=== PATIENT | male | born 1945 | race Caucasian/White ===

== ENCOUNTER 2023-12-18 06:35 | Outpatient (REF) | payer SELFPAY ==
[2023-12-18 06:46] LABS: MANUAL DIFF FLAG NO
[2023-12-18 07:34] LABS: Basophils Percent Auto 0.7 % (0-2); Eosinophils Absolute Auto 0.2 X10*3/uL (0.0-0.4); Eosinophils Percent Auto 5.2 % (0-4); Hematocrit 31.6 % (42.0-52.0); Hemoglobin 10.1 g/dl (14.0-18.0); Imm Gran Abs Auto 0.01 X10*3/uL (0.00-0.03); Imm Gran Pct Auto 0.2 % (0.0-0.4); Lymphocytes Absolute Auto 0.8 X10*3/uL (1.2-4.9); Lymphocytes Percent Auto 19.8 % (20-40); Mean Corpuscular Hemoglobin 30.8 pg (27.0-33.0); Mean Corpuscular Volume 96.3 fL (80.0-98.0); Mean Platelet Volume 11.1 fL (9.4-12.4); Monocytes Absolute Auto 0.4 X10*3/uL (0.1-1.2); Monocytes Percent Auto 10.5 % (2-11); Neutrophils Absolute Auto 2.7 x10*3/uL (2.0-8.3); Neutrophils Percent Auto 63.6 % (45-73); Platelet Count 143 X10*3/uL (160-400); Red Blood Count 3.28 X10*6/uL (4.60-5.80); Red Cell Distribution Width 13.7 % (11.0-16.0); White Blood Count 4.2 X10*3/uL (4.8-10.8)
[2023-12-18 07:41] LABS: Alanine Aminotransferase 7 U/L (0-40); Alkaline Phosphatase 68 U/L (39-117); Anion Gap 10 (12-20); Aspartate Amino Transferase 19 U/L (5-37); Bilirubin Total 0.6 mg/dL (0.0-1.0); Blood Urea Nitrogen 32 mg/dL (9-16); Calcium 9.9 mg/dL (8.4-10.2); Carbon Dioxide 25 mmol/L (22-29); Chloride 111 mmol/L (96-108); Cholesterol 101 mg/dL (<200); Estimated Glomerular Filt Rate 49; Glucose Random 74 mg/dL (60-115); HDL Cholesterol 37 mg/dL (>40); LDL Cholesterol Calculated 53 mg/dL (<100); Potassium 4.3 mmol/L (3.3-5.1); Sodium 142 mmol/L (135-145); Total Protein 6.1 g/dL (6.5-8.0); Triglycerides 58 mg/dL (<150)
[2023-12-18 07:44] LABS: INTERNATIONAL NORM RATIO 2.7 (0.9-1.1); Prothrombin Time 33.1 SEC (11.1-13.3)
[2023-12-18 08:09] LABS: Vitamin B12 1131 pg/mL (200-900)
[2023-12-18 08:19] LABS: Appearance Urine Clear; Color Urine Yellow; Glucose Urine UA Negative (Negative); Leukocyte Esterase Urine Trace (Negative); Nitrite Urine Negative (Negative); Specific Gravity - Urine <= 1.005 (1.005-1.025); UMIC TRIGGER UA YES; Urine Blood Negative (Negative); Urine Ketones Negative (Negative); Urine Protein Negative (Neg-Trace)
[2023-12-18 08:24] LABS: Bacteria Urine None Seen (None Seen); Hyaline Casts Urine 0-2 /LPF (0-2); RBC Urine 0-2 /HPF (0-2); Squamous Epithelial Cell Urine 0-2 /HPF (0-2); WBC Urine 0-5 /HPF (0-5)
[2023-12-21 09:48] LABS: TS Negative Control Passed; TS Panel A 1; TS Panel B 0; TS Positive Control Passed; TSpotTB Negative (Negative)
== END 2023-12-18 06:36 | disposition home or self-care (01) ==
LOC: HO.HSH2E 06:35
PROVIDERS: Visit Provider Internal Medicine Medical Oncology
DX: Z12.5 Encounter for screening for malignant neoplasm of prostate (principal); I48.91 Unspecified atrial fibrillation; I12.9 Hypertensive chronic kidney disease with stage 1 through stage 4 chronic kidney disease, or unspecified chronic kidney disease; N18.9 Chronic kidney disease, unspecified
CPT/HCPCS: 36415; 80053; 80061; 81001; 81003; 82607; 84153; 85025; 85610; 86481

== ENCOUNTER 2023-12-22 06:48 | Outpatient (REF) | payer MEDICARE, SELFPAY ==
[2023-12-22 08:07] LABS: PSA,Total (Free>4and<10) 25.91 ng/mL (0.00-4.00)
== END 2023-12-22 06:49 | disposition home or self-care (01) ==
LOC: HO.HSH2E 06:48
PROVIDERS: Visit Provider Internal Medicine Medical Oncology
DX: R97.20 Elevated prostate specific antigen [PSA] (principal); Z12.5 Encounter for screening for malignant neoplasm of prostate
CPT/HCPCS: 36415; 84153

== ENCOUNTER 2023-12-24 11:58 | Outpatient (AMB) | payer MEDICARE, SELFPAY ==
--- NOTE | 2023-12-24 12:00 | HO.VETSHOME ---
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 Braxton who [facility]. He has a past medical history of type 2 diabetes, neuropathy, hypertension, cardiac murmur, hyperlipidemia, obesity, AFib, endocarditis, anemia, nonrheumatic aortic valve stenosis, chronic combined systolic and diastolic heart failure, and chronic kidney disease stage 3. He is being follow-up on today as a new patient for an elevated PSA. In discussion with the patient today he reports having newly moved into the [facility] at which time labs were ordered and patient was noted to have a elevated PSA and recommendations were made for urology referral for further assessment evaluation. In review of patient's chart it appears PSA 01/04 25.9. Patient reports having followed up with his previous PCP not to along and had blood work that was all WNL. He discusses his PCP was in [place] his name was Dr. Keys. He discusses having followed up with a urologist previously and was to undergo a circumcision for his longstanding phimosis however this was never performed. He feels this is his main concern. Discussed at length potential causes of elevated PSA. GINGER performed right-sided prostate noted to be semi firm left side boggy. Discussed potential prostatitis versus inflammation verses potential prostate cancer. In assessment of the patient today absolute no retraction to penile foreskin unable to visualize meatus. Patient reports he is emptying his bladder. Bladder scan was performed yesterday and no PVR noted. He does report baseline urinary frequency however does not find this bothersome. He otherwise denies hematuria, dysuria, foul smelling urine, changes to urinary stream, flank pain, fever, and or chills. He otherwise offers no other issues or concerns. Review of Systems Const Reports no additional complaints Eyes Reports no additional complaints ENT Reports no additional complaints Card Reports as per HPI Resp Reports no additional complaints GI Reports no additional complaints Reports as per HPI Musc Reports as per HPI Neuro Reports no additional complaints Psych Reports no additional complaints Endo Reports as per HPI [place]/Lymph Reports no additional complaints Aller/Immun Reports no additional complaints Physical Exam Const General: cooperative, healthy appearing, comfortable, no acute distress, well developed, alert and awake Nutritional Appearance: overweight Orientation/consciousness: patient oriented x3 Limitations: other limitations (in bed ) HEENT Head: Yes normal to inspection, Yes normocephalic and Yes atraumatic Ears: hearing grossly normal bilaterally Eyes General: appearance normal, both eyes and all related structures Neck Neck: Yes normal visual inspection and Yes trachea midline Chest Chest palpation & inspection: normal inspection of the chest Resp Effort & Inspection: normal respiratory effort and able to speak in complete sentences Cardio Rate: regular rate GI Inspection: Yes normal to inspection Penis: uncircumcised and phimosis Scrotum: scrotum normal Testes: Testes normal Skin General skin exam: no rashes or lesions noted Neuro General: patient oriented x3 Extrem General: Yes normal to inspection Psych Appearance: grossly normal and well kempt Mental Status: mental status grossly normal Speech and movement: Normal speech and movement present and Clear speech present Affect: normal affect Attitude: cooperative Thought process: Normal thought process present Thought content: Normal thought content present Insight: Fair insight present (Psych) Judgement: Fair judgement present (Psych) Assessment & Plan Assessment & Plan (1) Elevated PSA: Code(s): R97.20 - Elevated prostate specific antigen [PSA] (2) Prostatitis: Code(s): N41.9 - Inflammatory disease of prostate, unspecified (3) Phimosis: Code(s): N47.1 - Phimosis (4) Urinary frequency: Code(s): R35.0 - Frequency of micturition Plan: Risks, benefits and alternatives to therapy were discussed. These include but are not limited to infection, bleeding, damage to local organs and tissues, need for further interventions. ? Anesthetic risks regarding cardiac arrhythmia, blood clots, and potential mortality were discussed. The patient understands the typical recovery time and the outpatient nature of the procedure. After consideration of these risks the patient gives full informed consent and they wish to move ahead with the procedure. Plan Discussed at length treatment options for phimosis; discussed risks and benefits of circumcision. GINGER performed discussed antibiotic therapy for potential prostatitis however in review of patient's MAR it appears he is on doxycycline this can also cover/treat potential prostatitis. Will obtain redraw of PSA with PSA percent free. Will obtain retroperitoneal ultrasound for further assessment evaluation. Discussed at length potential causes of elevated PSA. Will attempt to obtain previous labs for trending in continuity of care. All questions were answered Will attempt to schedule for circumcision discussed medical/cardiac clearance given extensive past medical history. Follow-up in 1-2 months with redraw of PSA and imaging. Patient Instructions: The patient had an opportunity to ask questions regarding the treatment plan. All questions were answered. Physical exam, labs, and imaging were discussed and reviewed in detail. As well as risks, benefits, and discussion of treatment choices. No major barriers to understanding were identified. The patient expressed understanding and agreement with the above treatment plan. The patient was made aware they should contact our office by phone for worsening of their current condition, the appearance of new symptoms, or with any questions or concerns. Compliance is encouraged with any medications and follow up testing that is ordered. It is a privilege to be allowed the opportunity to participate in? your urological care.? Again, if you have any questions or concerns If you have any questions or concerns please do not hesitate to contact me. The office is [phone]. This note is constructed using voice recognition software. While every effort has been made to ensure accuracy eligibility examiner errors may have been included. Yours sincerely, GRACIELA Humphries Coding Level of Care Code 97896-Xrpw Fac initial, mod Diagnoses Elevated PSA R97.20 Prostatitis N41.9 Phimosis N47.1 Urinary frequency R35.0 Time Spent (min) 40
== END 2023-12-24 16:30 | disposition home or self-care (01) ==
LOC: HO.HUSV 11:58
PROVIDERS: Visit Provider Nurse Practitioner Family
DX: R97.20 Elevated prostate specific antigen [PSA] (principal); N41.9 Inflammatory disease of prostate, unspecified; N47.1 Phimosis; R35.0 Frequency of micturition
CPT/HCPCS: 99305

== ENCOUNTER 2023-12-29 07:21 | Outpatient (REF) | payer MEDICARE, SELFPAY ==
[2023-12-29 08:40] LABS: Estimated Average Glucose 111 mg/dL; Hemoglobin A1c % 5.5 % (<6.0)
== END 2023-12-29 07:22 | disposition home or self-care (01) ==
LOC: HO.HSH2E 07:21
PROVIDERS: Visit Provider Internal Medicine Medical Oncology
DX: E11.9 Type 2 diabetes mellitus without complications (principal)
CPT/HCPCS: 36415; 83036

== ENCOUNTER 2024-01-01 06:12 | Outpatient (REF) | payer MEDICARE, SELFPAY ==
[2024-01-01 06:56] LABS: INTERNATIONAL NORM RATIO 2.9 (0.9-1.1); Prothrombin Time 35.1 SEC (11.1-13.3)
== END 2024-01-01 06:13 | disposition home or self-care (01) ==
LOC: HO.HSH2E 06:12
PROVIDERS: Visit Provider Internal Medicine Medical Oncology
DX: Z95.2 Presence of prosthetic heart valve (principal); Z79.899 Other long term (current) drug therapy
CPT/HCPCS: 36415; 85610

== ENCOUNTER 2024-01-14 06:40 | Outpatient (REF) | payer MEDICARE, SELFPAY ==
[2024-01-14 07:24] LABS: INTERNATIONAL NORM RATIO 2.1 (0.9-1.1); Prothrombin Time 25.7 SEC (11.1-13.3)
== END 2024-01-14 06:41 | disposition home or self-care (01) ==
LOC: HO.HSH2E 06:40
PROVIDERS: Visit Provider Internal Medicine Medical Oncology
DX: I48.91 Unspecified atrial fibrillation (principal)
CPT/HCPCS: 36415; 85610

== ENCOUNTER 2024-01-19 06:38 | Outpatient (REF) | payer MEDICARE, SELFPAY | END 2024-01-19 06:39 | disposition home or self-care (01) | LOC: HO.HSH2E 06:38 | PROVIDERS: Visit Provider Internal Medicine | DX: Z13.89 Encounter for screening for other disorder (principal) | CPT/HCPCS: 36415; 85610 ==

== ENCOUNTER 2024-01-19 13:49 | Outpatient (REF) | payer MEDICARE, SELFPAY ==
[2024-01-19 14:06] LABS: INTERNATIONAL NORM RATIO 1.6 (0.9-1.1); Prothrombin Time 19.6 SEC (11.1-13.3)
== END 2024-01-19 13:50 | disposition home or self-care (01) ==
LOC: HO.HSH2E 13:49
PROVIDERS: Visit Provider Internal Medicine
DX: I48.91 Unspecified atrial fibrillation (principal)
CPT/HCPCS: 36415; 85610

== ENCOUNTER 2024-01-20 06:11 | Day surgery (SDC) | payer MEDICARE, SELFPAY ==
--- NOTE | 2024-01-19 11:06 | HO.ANESPROP2 ---
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, prophylactic doxy BID PMFSH Active Problems Active Problems: All Active Problems Urinary frequency (Acute) Phimosis (Acute) Prostatitis (Acute) Elevated PSA (Acute) Past Medical History Medical History (Updated 01/19/24 @ 08:25 by Deanne Eid, RN) Hx of decubitus ulcer Former smoker Peripheral neuropathy Compartment syndrome of right lower extremity Osteoarthritis Pancreatic cyst Gout ASHD (arteriosclerotic heart disease) Aortic stenosis Chronic kidney disease Chronic combined systolic and diastolic CHF (congestive heart failure) Nonrheumatic aortic (valve) stenosis Anemia Endocarditis Afib Obesity Hyperlipidemia Murmur HTN (hypertension) Neuropathy Diabetes Surgical History Surgical History (Updated 01/19/24 @ 08:25 by Deanne Eid, FACUNDO) Hx of ankle fusion History of total bilateral knee replacement Hx of aortic valve replacement Meds Allergies Allergy/AdvReac Type Severity Reaction Status Date / Time ceftriaxone Allergy Unknown Verified 01/16/24 10:27 Home Medications ?Medication ?Instructions ?Recorded ?Confirmed ?Last Taken ?Type doxycycline hyclate 100 mg capsule 100 mg PO BID 12/25/23 01/16/24 Unknown History gabapentin 300 mg capsule 300 mg PO BID 12/25/23 01/16/24 Unknown History mecobalamin (vitamin B12) 500 mcg 1,000 mcg PO DAILY 12/25/23 01/16/24 Unknown History chewable tablet metoprolol succinate 100 mg 100 mg PO DAILY 12/25/23 01/16/24 Unknown History tablet,extended release 24 hr metoprolol tartrate 50 mg tablet 50 mg PO DAILY 12/25/23 01/16/24 Unknown History simvastatin 20 mg tablet 20 mg PO BEDTIME 12/25/23 01/16/24 Unknown History warfarin 5 mg tablet 5 mg PO Q OTHER DAY 12/25/23 01/16/24 Unknown History acetaminophen 325 mg tablet 650 mg PO Q4H PRN Pain 01/19/24 01/19/24 Unknown History enoxaparin 120 mg/0.8 mL 120 mg subcut Q12H 01/19/24 01/19/24 Unknown History subcutaneous syringe (Lovenox) furosemide 20 mg tablet 20 mg PO DAILY 01/19/24 01/19/24 Unknown History Exam Pertinent Lab Results Pertinent Lab Results: Laboratory Tests 12/18/23 05:45 WBC 4.2 L Hgb 10.1 L Hct 31.6 L Plt Count 143 L Sodium 142 Potassium 4.3 Chloride 111 H Carbon Dioxide 25 BUN 32 H Creatinine 1.40 Assessment and Plan Assessment Anesthesia Assessment: Chart Reviewed
[2024-01-20] VITALS (13 sets, daily range): BP systolic 107–140; BP diastolic 31–73; PULSE 50–78; RESP 10–18; TEMP 36.1–36.5; O2SAT 96–98; BMI 36.4
--- OUTSIDE RECORDS SUMMARY | 2024-01-20 06:13 | XMS_ITS | Continuity of Care Document ---
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 Name Role Phone Vladimir Keys MD Primary Care Physician Encounter [facility] R [id number] Date(s): 03/11/22 - 05/24/22 [facility] [address] [place] [id number] Attending Physician: Shashi Swain MD Admitting Physician: Shashi Swain MD Referring Physician: Vladimir Keys MD Allergies, Adverse Reactions, Alerts Substance Reaction Severity Status CefTRIAXone Sodium Active Immunizations Given and Recorded Vaccine Date Status Refusal Reason SARS-CoV-2 (COVID-19) mRNA BNT-162b2 vac 09/27/21 Recorded SARS-CoV-2 (COVID-19) mRNA BNT-162b2 vac 11/21/20 Recorded SARS-CoV-2 (COVID-19) mRNA BNT-162b2 vac 10/29/20 Recorded influenza virus vaccine, inactivated 04/24/21 Ron rded influenza virus vaccine, inactivated 03/05/20 Ron rded influenza virus vaccine, inactivated 03/14/17 Ron rded influenza virus vaccine, inactivated 03/31/16 Ron rded influenza virus vaccine, inactivated 04/07/15 Ron rded Medications acetaminophen 325 mg oral tablet 650 mg, 2, tablet, By Mouth, Every 4 hours, PRN, # 12 tablet, Refills 0, Maintenance, as needed forfever / pain, 04/06/22 14:53:00 EDT, Partial fill upon patient request if the prescription is for aschedule II opioid drug. Start Date: 04/06/22 Status: Ordered allopurinol 300 mg oral tablet 300 mg, 1, tablet, By Mouth, Daily, # 90 tablet, Refills 0, Tot. Refills 0, Maintenance, 12/13/21 13:59:00 EDT, Route to Pharmacy Electronically, [facility] #[id number], 180, cm, 12/13/21 12:56:00 EDT, Height, 136.6, kg, 09/08/21 16:31:00 EST, Dry... Start Date: 12/13/21 Status: Ordered B-12 1000 mcg oral tablet, extended release 1 tablet = 1,000 mcg, By Mouth, Daily, # 90 tablet, 1 Refills, Maintenance, 01/24/22 16:36:00 EDT, [facility] #[id number], 180, cm, 01/24/22 16:01:00 EDT, Height, 136.6, kg, 09/08/21 16:31:00 EST, Dry Weight Start Date: 01/24/22 Status: Ordered docusate sodium 150 mg/15 ml oral liquid 10 mL = 100 mg, By Mouth, 2 times a day, PRN Constipation, 0 Refills, Maintenance, 09/06/21 8:19:00EST, Liquid, Partial fill upon patient request if the prescription is for a schedule II opioid drug. Start Date: 09/06/21 Status: Ordered doxycycline hyclate 100 mg oral capsule 1 capsule = 100 mg, By Mouth, 2 times a day, # 60 capsule, 0 Refills, Maintenance, 05/09/22 13:15:00 EDT, Capsule, Partial fill upon patient request if the prescription is for a schedule II opioid drug. Start Date: 05/09/22 Stop Date: 06/08/22 Status: Ordered ferrous fumarate 324 mg oral tablet 1 tablet = 324 mg, By Mouth, Daily, # 90 tablet, 0 Refills, Maintenance, 12/13/21 14:03:00 EDT, Tablet, [facility] #[id number], 180, cm, 12/13/21 12:56:00 EDT, Height, 136.6, kg, 09/08/21 16:31:00 EST, Dry Weight Start Date: 12/13/21 Status: Ordered gabapentin 100 mg oral capsule 100 mg, 1, capsule, By Mouth, 2 times a day, # 60 capsule, Refills 2, Tot. Refills 2, Maintenance, 01/24/22 16:33:00 EDT, Route to Pharmacy Electronically, [id number], 180, cm, 01/24/22 16:01:00 EDT, Height, 136.6, kg, 09/08/21 16:31:0... Start Date: 01/24/22 Status: Ordered insulin lispro 100 units/mL injectable solution 2-10 units, Subcutaneous Injection, 3 times a day before meals, << Sliding Scale Comments >> 150 - 199 2 units Call if less than 70 200 - 249 4 units 250 - 299 6 units 300 - 349 8 units 350 - 399 10 units Call if greater than 400 <<... Start Date: 09/06/21 Status: Ordered lactulose 10 gm/15 ml oral syrup 30 mL = 20 Gm, By Mouth, Daily, PRN as needed for constipation, # 480 mL, 0 Refills, Maintenance, 04/06/22 14:56:00 EDT, Syrup, Partial fill upon patient request if the prescription is for a scheduleII opioid drug. Start Date: 04/06/22 Status: Ordered melatonin 3 mg oral tablet = 3 mg, By Mouth, Daily at bedtime, PRN Insomnia, 0 Refills, Maintenance, 09/06/21 8:19:00 EST, Tablet, Partial fill upon patient request if the prescription is for a schedule II opioid drug. Start Date: 09/06/21 Status: Ordered metoprolol 50 mg oral tablet, extended release 150 mg, 3, tablet, By Mouth, Daily, # 270 tablet, Refills 1, Tot. Refills 1, Maintenance, 11/27/21 12:04:00 EDT, Route to Pharmacy Electronically, [facility] #[id number], 180, cm, 09/22/21 20:27:00 EST, Height, 136.6, kg, 09/08/21 16:31:00 EST, . Start Date: 11/27/21 Status: Ordered Multivit Therapeutic/Minerals Tablet 1 tablet, By Mouth, Daily, 0 Refills, Maintenance, 09/06/21 8:20:00 EST, Tablet, Partial fill upon patient request if the prescription is for a schedule II opioid drug. Start Date: 09/06/21 Status: Ordered pantoprazole 40 mg oral delayed release tablet = 40 mg, By Mouth, Daily, 0 Refills, Maintenance, 05/09/22 13:15:00 EDT, EC Tablet Start Date: 05/09/22 Status: Ordered Probiotic Formula By Mouth, Daily, 0 Refills, Maintenance, 01/24/22 16:08:00 EDT, Partial fill upon patient request if the prescription is for a schedule II opioid drug. Start Date: 01/24/22 Status: Ordered Santyl 250 u/gm ointment 1 application, Topically, Daily, # 15 Gm, 0 Refills, Maintenance, 04/06/22 15:05:00 EDT, Ointment, Partial fill upon patient request if the prescription is for a schedule II opioid drug. Start Date: 04/06/22 Status: Ordered Senna 8.6 mg oral tablet 17.2 mg, 2, tablet, By Mouth, Daily, Refills 0, Maintenance, 05/09/22 13:15:00 EDT, Tablet, Partialfill upon patient request if the prescription is for a schedule II opioid drug. Start Date: 05/09/22 Status: Ordered simvastatin 20 mg oral tablet 1, tablet, By Mouth, Daily at bedtime, # 90 tablet, Refills 3, Tot. Refills 3, 12/14/21 1:07:00 EDT, Route to Pharmacy Electronically, [facility] #[id number], 180, cm, 12/13/21 12:56:00 EDT, Height, 136.6, kg, 09/08/21 16:31:00 EST, Dry Weight Start Date: 12/14/21 Status: Ordered Vitamin D3 1000 intl units oral capsule 1 capsule = 25 mcg, By Mouth, Daily, # 100 capsule, 0 Refills, Maintenance, 02/04/22 13:38:00 EDT, Capsule, Partial fill upon patient request if the prescription is for a schedule II opioid drug. Start Date: 02/04/22 Status: Ordered warfarin 10 mg oral tablet 1 tablet = 10 mg, By Mouth, Daily, 0 Refills, Maintenance, 05/09/22 13:15:00 EDT, Tablet, Partial fill upon patient request if the prescription is for a schedule II opioid drug. Start Date: 05/09/22 Status: Ordered Problem List Condition Confirmation Course Effective Dates Status H ealth Status Informant Anemia Confirmed Active Aortic stenosis Confirmed Active Chronic atrial fibrillation Confirmed Active CKD (chronic kidney disease), stage III Confirmed Active Systolic CHF, chronic Confirmed Active Chronic total occlusion of coronary artery Confirmed Active Deficiency of vitamin B12 Confirmed Active COVID-19 1 Confirmed 09/06/21 Active Pancreatic cyst Confirmed Active Fatigue Confirmed Active Gout Confirmed Active S/P TAVR (transcatheter aortic valve replacement) Confirmed Active Hyperlipidemia Confirmed Active Hypersensitivity Confirmed Active Hypertension Confirmed Active LBBB (left bundle branch block) Confirmed Active Mitral valve stenosis, non-rheumatic Confirmed Active Obese class II Confirmed Active Phimosis of penis Confirmed Active Pressure ulcer of buttock Confirmed Active Prosthetic valve endocarditis Confirmed Active Type 2 diabetes mellitus Confirmed Active UTI (urinary tract infection) Confirmed Active 1Problem added by Discern Expert Social History Social History Type Response Smoking Status Cigars or pipes but not daily within last 30 days; Type: Cigars; Other: occasionally, couple times a week.; entered on: 11/30/20 Sex Implantable Device List Procedure Provider Procedure Date Device Type Site Replacement of Hemodialysis Catheter Stephon Serrano MD 04/08/22 Unknown Chest Device Identifier Serial Number Lot or Batch Number Manufacturing Date Expiration Date Distinct Identification Code MRI Safety Implantable Status Assigning Authority Unknown Unknown [id number] Unknown 12/26/26 Unknown Unknown Active Unknown Patient Care team information Care Team Personnel Name: Kaitlyn De La Paz RN Position: [facility] RN Member Role: Primary Care Nurse Name: Purnima Esposito RN Position: [facility] RN Member Role: Primary Care Nurse Name: Tran Ireland RN Position: [facility] RN Member Role: Primary Care Nurse Name: Rebeka Dunbar RN Position: [facility] RN Member Role: Primary Care Nurse Name: Mary Beth Argueta RN Position: [facility] RN Member Role: Primary Care Nurse Name: Rosalinda Espinoza RN Position: [facility] RN Member Role: Primary Care Nurse Name: Natalee Farrell RN Position: [facility] RN Member Role: Primary Care Nurse Name: Liz Melara RN Position: [facility] RN Member Role: Primary Care Nurse Name: Vanesa Jo RN Position: [facility] RN Member Role: Primary Care Nurse Name: Jasmeet Del Castillo RN Position: [facility] RN Member Role: Primary Care Nurse Name: Ruby Rojas RN Position: [facility] RN Member Role: Primary Care Nurse Name: Harleen Clark RN Position: [facility] RN Member Role: Primary Care Nurse Name: Roger Romero RN Position: [facility] RN Member Role: Primary Care Nurse Name: Manasa Weinstein RN Position: [facility] RN Member Role: Primary Care Nurse Name: Reina Romeo RN Position: [facility] RN Member Role: Primary Care Nurse Name: Mark Ruffin Position: [facility] RN Member Role: Primary Care Nurse Name: Albertina Acevedo RN Position: [facility] RN Member Role: Primary Care Nurse Name: Diana Patton RN Position: [facility] RN Member Role: Primary Care Nurse Name: Imelda Brand RN Position: [facility] RN Member Role: Primary Care Nurse Name: Joao Downs RN Position: [facility] RN Member Role: Primary Care Nurse Name: Mitzy Mora Position: [facility] RN Member Role: Primary Care Nurse Name: Ward Alcantar RN Position: [facility] RN Member Role: Primary Care Nurse Name: Karla Holder RN Position: [facility] RN Member Role: Primary Care Nurse Name: Eric Aceves III, RN Position: [facility] RN Member Role: Primary Care Nurse Name: Danay Galindo RN Position: [facility] RN Member Role: Primary Care Nurse Name: Ara De Santiago RN Position: [facility] Onco RN Member Role: Primary Care Nurse Name: Li De Santiago RN Position: [facility] RN Member Role: Primary Care Nurse Name: Jacky Love Position: [facility] Associate Professional Member Role: Lifetime Consulting Provider Address: Address: [address] [place] [address] Name: Margaret Miranda RN Position: [facility] RN Member Role: Primary Care Nurse Name: Micki Quezada RN Position: [facility] RN Member Role: Primary Care Nurse Name: Fatmata Alvarez RN Position: [facility] RN Member Role: Primary Care Nurse Name: Ila Hamm RN Position: [facility] RN Member Role: Primary Care Nurse Name: Rocio Bird RN Position: [facility] RN Member Role: Primary Care Nurse Name: Owen Kuhn MD Position: [facility] Renal MD Member Role: Lifetime Consulting Physician Address: Address: [address] [place] [address] [address] [facility], [address] Name: Sharon Christopher RN Position: [facility] RN Member Role: Primary Care Nurse Name: Praveena Raymond RN Position: S RN Member Role: Primary Care Nurse Name: Carla Pickett RN Position: [facility] RN Member Role: Primary Care Nurse Name: Marcella Nichols RN Position: [facility] RN Member Role: Primary Care Nurse Name: Everett Marcelo RN Position: [facility] RN Member Role: Primary Care Nurse Name: Noe Doyle MD Position: [facility] Renal MD Member Role: Lifetime Consulting Physician Address: Address: [address] [place] [address] [facility] [place] [address]- Name: Li Lu LPN Position: [facility] RN Member Role: Primary Care Nurse Name: Odalis Herrera Position: [facility] RN Member Role: Primary Care Nurse Name: Tete Rodríguez RN Position: [facility] RN Member Role: Primary Care Nurse Name: Hannah Mcintyre RN Position: [facility] RN Member Role: Primary Care Nurse Name: Margarita Franco RN Position: [facility] RN Member Role: Primary Care Nurse Name: Cherry Nguyen RN Position: [facility] RN Member Role: Primary Care Nurse Name: Theresa Robison RN Position: [facility] RN Member Role: Primary Care Nurse Name: Vladimir Keys MD Position: [facility] Primary Care Physician Member Role: PCP Address: Address: [address] [place] [address], [facility] [address] [place] [address]- Name: Remedios Ramírez RN Position: [facility] RN Member Role: Primary Care Nurse Name: Ashlee Sanders RN Position: [facility] RN Member Role: Primary Care Nurse Name: Theresa Geiger RN Position: [facility] RN Member Role: Primary Care Nurse Name: Danay Banegas RN Position: [facility] RN Member Role: Primary Care Nurse Name: Talat Saldivar RN Position: [facility] RN Member Role: Primary Care Nurse Name: Den Wilde RN Position: [facility] SN RN Member Role: Primary Care Nurse Name: Rosalino Hernadez RN Position: [facility] RN Member Role: Primary Care Nurse Name: Chloe Prado Position: [facility] RN Member Role: Primary Care Nurse Care Team Related Persons Name: DESMOND MCDUFFIE Address: home [address] [place] [address]
--- OUTSIDE RECORDS SUMMARY | 2024-01-20 06:13 | XMS_ITS | Continuity of Care Document ---
Author Organization [facility] ter Address [address] [place] [id number]- Care Team Providers Care Polymer Specialist Name Role Phone Vladimir Keys MD Primary Care Physician Encounter [facility] [place](s): 08/29/23 - 08/29/[address] [id number] Attending Physician: Felicita Swain PharmD Allergies, Adverse Reactions, Alerts Substance Reaction Severity [...] opioid drug. Start Date: 04/06/22 Status: Ordered cyanocobalamin 1000 mcg oral tablet, extended release 1 tablet, By Mouth, Daily, # 90 tablet, 0 Refills, Maintenance, 06/23/23 9:19:00 [facility] #[id number], 177, cm, 02/17/23 14:21:00 EDT, Height, 115.6, kg, 02/12/23 17:08:00 EDT, Dry Weight Start Date: 06/23/23 Status: Ordered docusate sodium 150 mg/15 ml oral liquid 10 mL = 100 mg, By Mouth, 2 times a day, PRN Constipation, 0 Refills, Maintenance, 09/06/21 8:19:00EST, Liquid, Partial fill upon patient request if the prescription is for a schedule II opioid drug. Start Date: 09/06/21 Status: Ordered doxycycline hyclate 100 mg oral tablet 1 tablet = 100 mg, By Mouth, 2 times a day, # 60 tablet, 1 Refills, Maintenance, 08/01/23 7:16:00 EST, [facility] #[id number], 177, cm, 02/17/23 14:21:00 EDT, Height, 115.6, kg, 02/12/23 17:08:00EDT, Dry Weight Start Date: 08/01/23 Status: Ordered FREESTYLE LITE BLOOD GLUCOSE STRIPS FREESTYLE LITE BLOOD GLUCOSE STRIPS, See Instructions, # 100 Unknown, 5 Refills, Maintenance, CHECKBLOOD SUGAR ONCE A DAY BEFORE BREAKFAST, 08/20/22 11:29:00 EST, 182.88, cm, 05/09/22 12:50:00 EDT, Height, 125.1, kg, 04/23/22 14:36:00 EDT, Dry Weight Start Date: 08/20/22 Status: Ordered gabapentin 100 mg oral capsule 2, capsule, By Mouth, 2 times a day, # 120 capsule, Refills 2, Tot. Refills 2, Maintenance, 08/05/23 16:50:00 EST, Route to Pharmacy Electronically, [facility] #[id number], 177, cm, 02/17/23 14:21:00 EDT, Height, 115.6, kg, 02/12/23 17:08:00 EDT,... Start Date: 08/05/23 Status: Ordered insulin lispro 100 units/mL injectable [...] opioid drug. Start Date: 09/06/21 Status: Ordered Metoprolol Succinate ER 50 mg oral tablet, extended release 3 tablet, By Mouth, Daily, # 270 tablet, 0 Refills, Maintenance, 04/24/23 15:46:00 EDT, [facility] #[id number], 177, cm, 02/17/23 14:21:00 EDT, Height, 115.6, kg, 02/12/23 17:08:00 EDT, Dry Weight Start Date: 04/24/23 Status: Ordered Multivit Therapeutic/Minerals Tablet 1 tablet, By Mouth, Daily, 0 Refills, Maintenance, 09/06/21 8:20:00 EST, Tablet, Partial fill upon patient request if the prescription is for a schedule II opioid drug. Start Date: 09/06/21 Status: Ordered pantoprazole 40 mg oral delayed release tablet 1 tablet = 40 mg, By Mouth, Daily, # 90 tablet, 1 Refills, Maintenance, 07/23/22 16:49:00 EST, EC Tablet, 182.88, cm, 05/09/22 12:50:00 EDT, Height, 125.1, kg, 04/23/22 14:36:00 EDT, Dry Weight Start Date: 07/23/22 Status: Ordered simvastatin 20 mg oral tablet 1, tablet, By Mouth, Daily at bedtime, # 90 tablet, Refills 0, Tot. Refills 0, Maintenance, 04/24/23 15:48:00 EDT, Route to Pharmacy Electronically, [facility] #[id number], 177, cm, 02/17/23 14:21:00 EDT, Height, 115.6, kg, 02/12/23 17:08:00 EDT,... Start Date: 04/24/23 Status: Ordered warfarin 5 mg oral tablet See Instructions, TAKE 1.5 TABLETS(7.5MG) BY MOUTH EVERY DAY ALTERNATE WITH 2 TABLETS(10MG) EVERY OTHER DAY, # 150 tablet, 0 Refills, Maintenance, 04/25/23 13:33:00 EDT, [id number], 177, cm, 02/17/23 14:21:00 EDT, Height, 115.6, kg, 08... Start Date: 04/25/23 Status: Ordered Problem List Condition Confirmation Course Effective Dates Status H ealth Status Informant Anemia Confirmed Active Aortic stenosis Confirmed Active Chronic atrial fibrillation Confirmed Active CKD (chronic kidney disease), stage III Confirmed Active Systolic CHF, chronic Confirmed Active Chronic total occlusion of coronary artery Confirmed Active Chronic ulcer of buttock Confirmed Active Deficiency of vitamin B12 Confirmed Active COVID-19 1 Confirmed 09/06/21 Active Pancreatic cyst Confirmed Active Controlled diabetes mellitus Confirmed Active Fatigue Confirmed Active Gout Confirmed Active S/P TAVR (transcatheter aortic valve replacement) Confirmed Active Hyperlipidemia Confirmed Active Hypersensitivity Confirmed Active Hypertension Confirmed Active LBBB (left bundle branch block) Confirmed Active Mitral valve stenosis, non-rheumatic Confirmed Active Osteomyelitis of foot Confirmed Active Leg pain Confirmed Active Phimosis of penis Confirmed Active Pressure ulcer of buttock Confirmed Active Prosthetic valve endocarditis Confirmed Active Severe obesity (BMI 35.0-39.9) with comorbidity Confirmed Active Type 2 diabetes mellitus Confirmed [...] Safety Implantable Status Assigning Authority Unknown Unknown [id number] Unknown 12/26/26 Unknown Unknown Active Unknown Patient Care team information Care Team Personnel Name: Kaitlyn De La Paz RN Position: S RN Member Role: Primary Care Nurse Name: Purnima Esposito RN Position: [facility] RN Member Role: Primary Care Nurse Name: Tran Ireland RN Position: [facility] RN Member Role: Primary Care Nurse Name: Mitzy Lim RN Position: [facility] RN Member Role: Primary Care Nurse Name: Rebeka Dunbar RN Position: [facility] RN Member Role: Primary Care Nurse Name: Mary Beth Argueta RN Position: [facility] SN RN Member Role: Primary Care Nurse Name: Rosalinda Espinoza RN Position: [facility] RN Member Role: Primary Care Nurse Name: Carla Reid RN Position: [facility] SN RN Member Role: Primary Care Nurse Name: Natalee Farrell RN Position: [facility] RN Member Role: Primary Care Nurse Name: Lois Serrano Position: [facility] RN Member Role: Primary Care Nurse Name: Jasmeet Del Castillo RN Position: [facility] RN Member Role: Primary Care Nurse Name: Harleen Clark RN Position: [facility] AMB Nurse Member Role: Primary Care Nurse Name: Roger Romero RN Position: [facility] RN Member Role: Primary Care Nurse Name: Manasa Weinstein RN Position: [facility] RN Member Role: Primary Care Nurse Name: Reina Romeo RN Position: [facility] RN Member Role: Primary Care Nurse Name: Mark Ruffin Position: [facility] RN Member Role: Primary Care Nurse Name: Diana Patton RN Position: [facility] RN Member Role: Primary Care Nurse Name: Meera Camacho RN Position: [facility] RN Member Role: Primary Care Nurse Name: Imelda Brand RN Position: [facility] RN Member Role: Primary Care Nurse Name: Joao Downs RN Position: [facility] RN Member Role: Primary Care Nurse Name: Mitzy Mora Position: [facility] RN Member Role: Primary Care Nurse Name: Ward Alcantar RN Position: [facility] RN Member Role: Primary Care Nurse Name: Karla Holder RN Position: [facility] RN Member Role: Primary Care Nurse Name: Eric Aceves III, RN Position: [facility] RN Member Role: Primary Care Nurse Name: Danay Galindo RN Position: [facility] RN Member Role: Primary Care Nurse Name: Ila Palm PharmD Position: [facility] Associate Professional Member Role: Lifetime Consulting Provider Address: Address: [address] [facility] [place] [address]- [place] Name: Ara De Santigao RN Position: [facility] Onco RN Member Role: Primary Care Nurse Name: Jacky Love Position: [facility] Associate Professional Member Role: Lifetime Consulting Provider Address: Address: [address] [place] [address]- Name: Micki Quezada RN Position: [facility] RN Member Role: Primary Care Nurse Name: Fatmata Alvarez RN Position: S RN Member Role: Primary Care Nurse Name: Ila Hamm RN Position: [facility] RN Member Role: Primary Care Nurse Name: Owen Kuhn MD Position: [facility] Renal MD Member Role: Lifetime Consulting Physician Address: Address: [address] [place] [address] [address] [facility] [place] [address]- Name: Sharon Christopher RN Position: [facility] RN Member Role: Primary Care Nurse Name: Praveena Raymond RN Position: [facility] RN Member Role: Primary Care Nurse Name: Margaret Hurtado RN Position: [facility] SN RN Member Role: Primary Care Nurse Name: Noe Doyle MD Position: [facility] Renal MD Member Role: Lifetime Consulting Physician Address: Address: [address] [place] [address] [facility] [place] [address]- Name: Li Lu LPN Position: [facility] RN Member Role: Primary Care Nurse Name: Tete Rodríguez RN Position: [facility] RN Member Role: Primary Care Nurse Name: Hannah Mcintyre RN Position: [facility] RN Member Role: Primary Care Nurse Name: Tatiana Mueller RN Position: [facility] RN Member Role: Primary Care Nurse Name: Cherry Nguyen RN Position: [facility] RN Member Role: Primary Care Nurse Name: Vladimir Keys MD Position: [facility] Physician - Primary Care Member Role: PCP Address: Address: [address], [address] [place] [address]- [place] Name: Remedios Ramírez RN Position: [facility] RN Member Role: Primary Care Nurse Name: Ashlee Sanders RN Position: [facility] RN Member Role: Primary Care Nurse Name: Theresa Geiger RN Position: [facility] RN Member Role: Primary Care Nurse Name: Talat Saldivar RN Position: [facility] RN Member Role: Primary Care Nurse Name: Den Wilde RN Position: [facility] SN RN Member Role: Primary Care Nurse Name: Rosalino Hernadez RN Position: [facility] RN Member Role: Primary Care Nurse Name: Noemí Ny RN, I Position: [facility] RN Member Role: Primary Care Nurse Name: Chloe Prado RN Position: [facility] RN Member Role: Primary Care Nurse Care Team Related Persons Name: DESMOND MCDUFFIE Address: home [address] [place] [address]
--- OUTSIDE RECORDS SUMMARY | 2024-01-20 06:13 | XMS_ITS | Continuity of Care Document ---
Author Organization [facility] Address [address] [place] [id number]- Care Team Providers Care Supervisor Pipeline Maintenance Name Role Phone Valdimir Keys MD Primary Care Physician Encounter [facility] [place] Date(s): 12/27/21 - 01/30/22 [facility] [address] [place] [id number] Attending Physician: Jason PARISH, Gail Akins Admitting Physician: Jason PARISH, Gail Akins Allergies, Adverse Reactions, Alerts No Known Allergies Immunizations Given and Recorded Vaccine Date Status [...] virus vaccine, inactivated 04/07/15 Ron rded Medications allopurinol 300 mg oral tablet 300 mg, 1, tablet, By Mouth, Daily, # 90 tablet, Refills 0, Tot. Refills 0, Maintenance, 12/13/21 13:59:00 EDT, Route to Pharmacy Electronically, [facility] #[id number], 180, cm, 12/13/21 12:56:00 EDT, Height, 136.6, kg, 09/08/21 16:31:00 EST, Dry... Start Date: 12/13/21 Status: Ordered Aspir 81 Oral Enteric Coated Tablet 1 tablet = 81 mg, By Mouth, Daily, # 30 tablet, 0 Refills Start Date: 04/14/09 Stop Date: 05/14/09 Status: Ordered B-12 1000 mcg oral tablet, extended release 1 tablet = 1,000 mcg, By Mouth, Daily, # 90 tablet, 1 Refills, Maintenance, 01/24/22 16:36:00 EDT, [facility] #[id number], 180, cm, 01/24/22 16:01:00 EDT, Height, 136.6, kg, 09/08/21 16:31:00 EST, Dry Weight Start Date: 01/24/22 Status: Ordered cephalexin monohydrate 250 mg oral capsule 1 capsule = 250 mg, By Mouth, Every 12 hours, # 180 capsule, 1 Refills, Maintenance, 12/13/21 13:55:00 EDT, Capsule, [facility] #[id number], 180, cm, 12/13/21 12:56:00 EDT, Height, 136.6, kg, 09/08/21 16:31:00 EST, Dry Weight Start Date: 12/13/21 Status: Ordered docusate sodium 150 mg/15 ml oral liquid 10 mL = 100 mg, By Mouth, 2 times a day, PRN Constipation, 0 Refills, Maintenance, 09/06/21 8:19:00EST, Liquid, Partial fill upon patient request if the prescription is for a schedule II opioid drug. Start Date: 09/06/21 Status: Ordered ferrous fumarate 324 mg oral tablet 1 tablet = 324 mg, By Mouth, Daily, # 90 tablet, 0 Refills, Maintenance, 12/13/21 14:03:00 EDT, Tablet, [facility] #[id number], 180, cm, 12/13/21 12:56:00 EDT, Height, 136.6, kg, 09/08/21 16:31:00 EST, Dry Weight Start Date: 12/13/21 Status: Ordered gabapentin 100 mg oral capsule 100 mg, 1, capsule, By Mouth, 2 times a day, # 60 capsule, Refills 2, Tot. Refills 2, Maintenance, 01/24/22 16:33:00 EDT, Route to Pharmacy Electronically, [facility] #[id number], 180, cm, 01/24/22 16:01:00 EDT, Height, 136.6, kg, 09/08/21 16:31:0... Start Date: 01/24/22 Status: Ordered glipiZIDE 2.5 mg oral tablet, extended release 1 tablet = 2.5 mg, By Mouth, Daily, # 90 tablet, 0 Refills, Maintenance, 12/13/21 14:03:00 EDT, ER Tablet, [facility] #[id number], Partial fill upon patient request if the prescription is for a schedule II opioid drug., 180, cm, 12/13/21 12:56:00... Start Date: 12/13/21 Status: Ordered Insulin Glargine Inj 0.1 mL = 10 units, Subcutaneous Injection, Daily at bedtime, 0 Refills, Maintenance, 09/23/21 13:15:00 EDT, Injection, Partial fill upon patient request if the prescription is for a schedule II opioid drug. Start Date: 09/23/21 Status: Ordered insulin lispro 100 units/mL injectable [...] 400 <<... Start Date: 09/06/21 Status: Ordered melatonin 3 mg oral tablet [...] 11/27/21 12:04:00 EDT, Route to Pharmacy Electronically, [facility] #[id number], 180, cm, 09/22/21 20:27:00 EST, Height, 136.6, kg, 09/08/21 16:31:00 EST, Start Date: 11/27/21 Status: Ordered Milk of Magnesia Liquid 30 mL, By Mouth, 2 times a day, PRN Constipation, 0 Refills, Maintenance, 09/06/21 8:20:00 EST, Suspension, Partial fill upon patient request if the prescription is for a schedule II opioid drug. Start Date: 09/06/21 Status: Ordered Multivit Therapeutic/Minerals Tablet 1 tablet, By Mouth, Daily, 0 Refills, Maintenance, 09/06/21 8:20:00 EST, Tablet, Partial fill upon patient request if the prescription is for a schedule II opioid drug. Start Date: 09/06/21 Status: Ordered Probiotic Formula By Mouth, Daily, 0 Refills, Maintenance, 01/24/22 16:08:00 EDT, Partial fill upon patient request if the prescription is for a schedule II opioid drug. Start Date: 01/24/22 Status: Ordered simvastatin 20 mg oral tablet 1, tablet, By Mouth, Daily at bedtime, # 90 tablet, Refills 3, Tot. Refills 3, 12/14/21 1:07:00 EDT, Route to Pharmacy Electronically, [facility] #[id number], 180, cm, 12/13/21 12:56:00 EDT, Height, 136.6, kg, 09/08/21 16:31:00 EST, Dry Weight Start Date: 12/14/21 Status: Ordered sodium zirconium cyclosilicate 10 g oral powder for reconstitution = 10 Gm, By Mouth, Daily, PRN Other, take as needed for hyperkalemia, # 10 each, 0 Refills, Maintenance, 09/23/21 13:14:00 EDT, Partial fill upon patient request if the prescription is for a scheduleII opioid drug. Start Date: 09/23/21 Status: Ordered torsemide 20 mg oral tablet 1 tablet = 20 mg, By Mouth, Daily, # 180 tablet, 2 Refills, Maintenance, 12/13/21 13:55:00 EDT, Tablet, [facility] #[id number], 180, cm, 12/13/21 12:56:00 EDT, Height, 136.6, kg, 09/08/21 16:31:00 EST, Dry Weight Start Date: 12/13/21 Status: Ordered Valtrex 1 gm oral tablet 1 tablet = 1 Gm, By Mouth, Daily, for 7 days, # 7 tablet, 0 Refills, Acute 01/31/22 16:32:00 EDT, 01/24/22 16:32:00 EDT, [facility] #[id number], 180, cm, 01/24/22 16:01:00 EDT, Height, 136.6, kg,09/08/21 16:31:00 EST, Dry Weight Start Date: 01/24/22 Stop Date: 01/31/22 Status: Ordered warfarin 5 mg oral tablet See Instructions, Take 1.5 tablets daily(7.5 mg) alternate with 2 tablets(10 mg) every othery day, # 150 tablet, 2 Refills, Maintenance, 12/13/21 14:00:00 EDT, [facility] #[id number], 180, cm, 12/13/21 12:56:00 EDT, Height, 136.6, kg, 09/08/21 16:... Start Date: 12/13/21 Status: Ordered Problem List Condition Effective Dates Status Health Status Inform ant Anemia(Confirmed) Active Aortic stenosis(Confirmed) Active Chronic atrial fibrillation(Confirmed) Active CKD (chronic kidney disease) , stage III(Confirmed) Active Systolic CHF, chronic(Confirmed) Active Chronic total occlusion of c oronary artery(Confirmed) Active Deficiency of vitamin B12(Confirmed) Active COVID-19(Confirmed) 1 09/06/21 Active Pancreatic cyst(Confirmed) Active Fatigue(Confirmed) Active Gout(Confirmed) Active S/P TAVR (transcatheter aort ic valve replacement)(Confirmed) Active Hyperlipidemia(Confirmed) Active Hypertension(Confirmed) Active LBBB (left bundle branch block)(Confirmed) Active Mitral valve stenosis, non-rheumatic(Confirmed) Active Obese class II(Confirmed) Active Phimosis of penis(Confirmed) Active Pressure ulcer of buttock(Confirmed) Active Prosthetic valve endocarditis(Confirmed) Active Type 2 diabetes mellitus(Confirmed) Active UTI (urinary tract infection)(Confirmed) Active 1Problem added by Discern Expert Social History Social History Type Response Smoking Status Cigars or pipes but not daily within last 30 days; Type: Cigars; Other: occasionally, couple times a week.; entered on: 11/30/20 Sex
--- OUTSIDE RECORDS SUMMARY | 2024-01-20 06:13 | XMS_ITS | Continuity of Care Document ---
Author Organization [facility] Address Unknown Care Team Providers Care Delicatessen Store Manager Name Role Phone Vladimir Keys MD Primary Care Physician Encounter [facility] [place] Date(s): 09/05/21 - 10/19/21 [facility] Attending Physician: Cayetano Montoya MD Allergies, Adverse Reactions, Alerts No Known Allergies Immunizations Given and Recorded Vaccine Date Status Refusal Reason influenza virus vaccine, inactivated 04/24/21 Ron rded influenza virus vaccine, inactivated 03/05/20 Ron rded influenza virus vaccine, inactivated 03/14/17 Ron rded influenza virus vaccine, inactivated 03/31/16 Ron rded influenza virus vaccine, inactivated 04/07/15 Ron rded SARS-CoV-2 (COVID-19) mRNA BNT-162b2 vac 11/21/20 Recorded SARS-CoV-2 (COVID-19) mRNA BNT-162b2 vac 10/29/20 Recorded Medications Aspir 81 Oral Enteric Coated Tablet 1 tablet = 81 mg, By Mouth, Daily, # 30 tablet, 0 Refills Start Date: 04/14/09 Stop Date: 05/14/09 Status: Ordered bisacodyl 10 mg rectal suppository 1 supp = 10 mg, Rectally, 2 times a day, PRN Constipation, 0 Refills, Maintenance, 09/06/21 8:19:00EST, Suppository, Partial fill upon patient request if the prescription is for a schedule II opioiddrug. Start Date: 09/06/21 Status: Ordered docusate sodium 150 mg/15 ml oral liquid 10 mL = 100 mg, By Mouth, 2 times a day, PRN Constipation, 0 Refills, Maintenance, 09/06/21 8:19:00EST, Liquid, Partial fill upon patient request if the prescription is for a schedule II opioid drug. Start Date: 09/06/21 Status: Ordered Insulin Glargine Inj 0.1 mL [...] drug. Start Date: 09/06/21 Status: Ordered metoprolol 100 mg oral tablet, extended release 150 mg, 1.5, tablet, By Mouth, Daily, # 45 tablet, Refills 0, Tot. Refills 0, Maintenance, 09/23/2212:17:00 EDT, Do Not Route, Partial fill upon patient request if the prescription is for a scheduleII opioid drug. Start Date: 09/23/21 Status: Ordered Milk of Magnesia Liquid 30 [...] opioid drug. Start Date: 09/06/21 Status: Ordered OXacillin 2 Gm IVPB 2 g, IV Infusion, Every 4 hours, Maintenance, 09/06/21 8:25:00 EST Start Date: 09/06/21 Stop Date: 09/26/21 Status: Ordered simvastatin 20 mg oral tablet 1, tablet, By Mouth, Daily at bedtime, # 90 tablet, Refills 1, Route to Pharmacy Electronically, [facility] #[id number], 174, cm, 01/19/21 13:26:00 EDT, Height, 127.5, kg, 11/30/20 1:55:00 EDT, Dry Weight Start Date: 03/06/21 Status: Ordered sodium bicarbonate 650 mg oral tablet 1 tablet = 650 mg, By Mouth, 2 times a day, 0 Refills, Maintenance, 09/06/21 8:20:00 EST, Tablet, Partial fill upon patient request if the prescription is for a schedule II opioid drug. Start Date: 09/06/21 Status: Ordered sodium zirconium cyclosilicate 10 g oral powder for reconstitution = 10 Gm, By Mouth, Daily, PRN Other, take as needed for hyperkalemia, # 10 each, 0 Refills, Maintenance, 09/23/21 13:14:00 EDT, Partial fill upon patient request if the prescription is for a scheduleII opioid drug. Start Date: 09/23/21 Status: Ordered torsemide 20 mg oral tablet 2 tablet = 40 mg, By Mouth, Daily, 0 Refills, Maintenance, 09/23/21 13:18:00 EDT, Tablet, Partial fill upon patient request if the prescription is for a schedule II opioid drug. Start Date: 09/23/21 Status: Ordered warfarin 10 mg oral tablet 1 tablet = 10 mg, By Mouth, Every Friday and , # 9 tablet, 0 Refills, Maintenance, 09/23/2212:17:00 EDT, Partial fill upon patient request if the prescription is for a schedule II opioid drug. Start Date: 09/23/21 Status: Ordered warfarin 7.5 mg oral tablet 1 tablet = 7.5 mg, By Mouth, Daily, # 90 tablet, 0 Refills, Maintenance, 09/09/21 0:58:00 EST, Tablet, Partial fill upon patient request if the prescription is for a schedule II opioid drug. Start Date: 09/09/21 Status: Ordered Problem List Condition Effective Dates Status Health Status Inform ant Aortic stenosis(Confirmed) Active Chronic atrial fibrillation(Confirmed) Active CKD (chronic kidney disease) , stage III(Confirmed) Active Systolic CHF, chronic(Confirmed) Active Chronic total occlusion of c oronary artery(Confirmed) Active COVID-19(Confirmed) 1 09/06/21 Active Pancreatic cyst(Confirmed) Active Gout(Confirmed) Active S/P TAVR (transcatheter aort ic valve replacement)(Confirmed) Active Hypertension(Confirmed) Active LBBB (left bundle branch block)(Confirmed) Active Mitral valve stenosis, non-rheumatic(Confirmed) Active Prosthetic valve endocarditis(Confirmed) Active Severe obesity(Confirmed) Active Type 2 diabetes mellitus(Confirmed) Active UTI (urinary tract infection)(Confirmed) Active 1Problem added by Discern Expert Social History Social History Type Response Smoking Status Cigars or pipes but not daily within last 30 days; Type: Cigars; Other: occasionally, couple times a week.; entered on: 11/30/20 Sex
--- OUTSIDE RECORDS SUMMARY | 2024-01-20 06:13 | XMS_ITS | Continuity of Care Document ---
Author Organization [facility] Address [address] [place] [id number]- Care Team Providers Care Photographic Aide Name Role Phone Vladimir Keys MD Primary Care Physician En[place] [facility] [place] [id number] Date(s): 02/18/22 - 03/23/22 [facility] [address] [place] [id number] Attending Physician: Ubaldo Dominique MD Admitting Physician: Ubaldo Dominique MD Allergies, Adverse Reactions, Alerts No Known [...] 12/13/21 13:59:00 EDT, Route to Pharmacy Electronically, [facility] #[id number], 180, cm, 12/13/21 12:56:00 EDT, Height, 136.6, [...] tablet, 1 Refills, Maintenance, 01/24/22 16:36:00 EDT, [facility] #[id number], 180, cm, 01/24/22 16:01:00 EDT, Height, 136.6, kg, 09/08/21 16:31:00 EST, Dry Weight Start Date: 01/24/22 Status: Ordered cephalexin monohydrate 250 mg oral capsule 1 capsule = 250 mg, By Mouth, Every 12 hours, # 180 capsule, 1 Refills, Maintenance, 12/13/21 13:55:00 EDT, Capsule, [facility] #[id number], 180, cm, 12/13/21 12:56:00 EDT, Height, 136.6, [...] 0 Refills, Maintenance, 12/13/21 14:03:00 EDT, Tablet, [facility] #[id number], 180, cm, 12/13/21 12:56:00 EDT, Height, 136.6, kg, 09/08/21 16:31:00 EST, Dry Weight Start Date: 12/13/21 Status: Ordered gabapentin 100 mg oral capsule 100 mg, 1, capsule, By Mouth, 2 times a day, # 60 capsule, Refills 2, Tot. Refills 2, Maintenance, 01/24/22 16:33:00 EDT, Route to Pharmacy Electronically, [facility] #[id number], 180, cm, 01/24/22 16:01:00 EDT, Height, 136.6, kg, 09/08/21 16:31:0... Start Date: 01/24/22 Status: Ordered glipiZIDE 2.5 mg oral tablet, extended release 1 tablet = 2.5 mg, By Mouth, Daily, # 90 tablet, 0 Refills, Maintenance, 12/13/21 14:03:00 EDT, ER Tablet, [facility] #[id number], Partial fill upon patient request if the [...] EDT, Route to Pharmacy Electronically, [facility] #[id number], 180, cm, 09/22/21 20:27:00 EST, Height, 136.6, [...] 12/14/21 1:07:00 EDT, Route to Pharmacy Electronically, [facility] #[id number], 180, cm, 12/13/21 12:56:00 EDT, Height, 136.6, [...] 2 Refills, Maintenance, 12/13/21 13:55:00 EDT, Tablet, [facility] #[id number], 180, cm, 12/13/21 12:56:00 EDT, Height, 136.6, kg, 09/08/21 16:31:00 EST, Dry Weight Start Date: 12/13/21 Status: Ordered Vitamin D3 1000 intl units oral capsule 1 capsule = 25 mcg, By Mouth, Daily, # 100 capsule, 0 Refills, Maintenance, 02/04/22 13:38:00 EDT, Capsule, Partial fill upon patient request if the prescription is for a schedule II opioid drug. Start Date: 02/04/22 Status: Ordered warfarin 5 mg oral tablet See Instructions, Take 1 tablet (5 mg) every Fri, Fri and Friday, and 2 tablets(10 mg) every Fri, Thur, Sat, Sun, # 150 tablet, 2 Refills, Maintenance, 12/13/21 14:00:00 EDT, [facility] #[id number], 180, cm, 12/13/21 12:56:00 EDT, Height, 136.6, k... Start Date: 12/13/21 Status: Ordered Problem List [...] aort ic valve replacement)(Confirmed) Active Hyperlipidemia(Confirmed) Active Hypersensitivity(Confirmed) Active Hypertension(Confirmed) Active LBBB (left bundle branch block)(Confirmed) Active Mitral valve stenosis, non-rheumatic(Confirmed) Active Phimosis of penis(Confirmed) Active Pressure ulcer of buttock(Confirmed) Active Prosthetic valve endocarditis(Confirmed) Active Severe obesity(Confirmed) Active Type 2 diabetes mellitus(Confirmed) Active UTI (urinary tract infection)(Confirmed) Active 1Problem added by Discern Expert Social History Social History Type Response Smoking Status Cigars or pipes but not daily within last 30 days; Type: Cigars; Other: occasionally, couple times a week.; entered on: 11/30/20 Sex Care Team Personnel Name: Vladimir Keys MD Address: [address] [place] [address], [address] [place], [place] [address]
--- OUTSIDE RECORDS SUMMARY | 2024-01-20 06:13 | XMS_ITS | Continuity of Care Document ---
Author Organization [facility] Address [address] [place] [phone]- Care Team Providers Care Truck Mechanic Apprentice Name Role Phone Vladimir Keys MD Primary Care Physician Encounter [facility] [place] Date(s): 12/25/21 - 01/24/22 [facility] [address] [place] [id number] Attending Physician: AdmtrTanmay Admitting Physician: Admtr, Ar8 Referring Physician: Admtr, Ar8 Allergies, Adverse Reactions, Alerts No Known Allergies Immunizations Given and Recorded Vaccine Date Status Refusal Reason SARS-CoV-2 (COVID-19) mRNA BNT-162b2 vac 09/27/21 Recorded SARS-CoV-2 (COVID-19) mRNA BNT-162b2 vac 11/21/20 Recorded SARS-CoV-2 (COVID-19) mRNA BNT-162b2 vac 10/29/20 Recorded influenza virus vaccine, inactivated 04/24/21 Ron rded influenza virus vaccine, inactivated 03/05/20 Orn rded influenza virus vaccine, inactivated 03/14/17 Ron rded influenza virus vaccine, inactivated 03/31/16 Ron rded influenza virus vaccine, inactivated 04/07/15 Ron rded Medications allopurinol 300 mg oral tablet 300 mg, 1, tablet, By Mouth, Daily, # 90 tablet, Refills 0, Tot. Refills 0, Maintenance, 12/13/21 13:59:00 EDT, Route to Pharmacy Electronically, [facility] #[id number], 180, cm, 12/13/21 12:56:00 EDT, Height, 136.6, [...] tablet, 1 Refills, Maintenance, 01/24/22 16:36:00 EDT, [facility] #[id number], 180, cm, 01/24/22 16:01:00 EDT, Height, 136.6, kg, 09/08/21 16:31:00 EST, Dry Weight Start Date: 01/24/22 Status: Ordered cephalexin monohydrate 250 mg oral capsule 1 capsule = 250 mg, By Mouth, Every 12 hours, # 180 capsule, 1 Refills, Maintenance, 12/13/21 13:55:00 EDT, Capsule, [facility] #[id number], 180, cm, 12/13/21 12:56:00 EDT, Height, 136.6, [...] 0 Refills, Maintenance, 12/13/21 14:03:00 EDT, Tablet, [facility] #[id number], 180, cm, 12/13/21 12:56:00 EDT, Height, 136.6, kg, 09/08/21 16:31:00 EST, Dry Weight Start Date: 12/13/21 Status: Ordered gabapentin 100 mg oral capsule 100 mg, 1, capsule, By Mouth, 2 times a day, # 60 capsule, Refills 2, Tot. Refills 2, Maintenance, 01/24/22 16:33:00 EDT, Route to Pharmacy Electronically, [facility] #[id number], 180, cm, 01/24/22 16:01:00 EDT, Height, 136.6, kg, 09/08/21 16:31:0... Start Date: 01/24/22 Status: Ordered glipiZIDE 2.5 mg oral tablet, extended release 1 tablet = 2.5 mg, By Mouth, Daily, # 90 tablet, 0 Refills, Maintenance, 12/13/21 14:03:00 EDT, ER Tablet, [facility] #[id number], Partial fill upon patient request if the [...] EDT, Route to Pharmacy Electronically, [facility] #[id number], 180, cm, 09/22/21 20:27:00 EST, Height, 136.6, [...] 12/14/21 1:07:00 EDT, Route to Pharmacy Electronically, [facility] #[id number], 180, cm, 12/13/21 12:56:00 EDT, Height, 136.6, [...] 2 Refills, Maintenance, 12/13/21 13:55:00 EDT, Tablet, [facility] #[id number], 180, cm, 12/13/21 12:56:00 EDT, Height, 136.6, kg, 09/08/21 16:31:00 EST, Dry Weight Start Date: 12/13/21 Status: Ordered Valtrex 1 gm oral tablet 1 tablet = 1 Gm, By Mouth, Daily, for 7 days, # 7 tablet, 0 Refills, Acute 01/31/22 16:32:00 EDT, 01/24/22 16:32:00 EDT, [facility] #[id number], 180, cm, 01/24/22 16:01:00 EDT, Height, 136.6, kg,09/08/21 16:31:00 EST, Dry Weight Start Date: 01/24/22 Stop Date: 01/31/22 Status: Ordered warfarin 5 mg oral tablet See Instructions, Take 1.5 tablets daily(7.5 mg) alternate with 2 tablets(10 mg) every othery day, # 150 tablet, 2 Refills, Maintenance, 12/13/21 14:00:00 EDT, [facility] #[id number], 180, cm, 12/13/21 12:56:00 EDT, Height, 136.6, [...]
--- OUTSIDE RECORDS SUMMARY | 2024-01-20 06:13 | XMS_ITS | Continuity of Care Document ---
Author Organization [facility] Address [address] [place] [id number]- Care Team Providers Care Construction Pit Worker Name Role Phone Vladimir Keys MD Primary Care Physician En[place] [facility] [place] Date(s): 03/31/21 - 05/06/21 [facility] [address] [place] [id number]- Attending Physician: Braulio Burnett MD Admitting Physician: Braulio Burnett MD Referring Physician: Vladimir Keys MD Allergies, Adverse Reactions, Alerts Substance Reaction Severity Status NKA Active Immunizations Given and Recorded Vaccine Date Status Refusal Reason SARS-CoV-2 (COVID-19) mRNA BNT-162b2 vac 11/21/20 Recorded SARS-CoV-2 (COVID-19) mRNA BNT-162b2 vac 10/29/20 Recorded influenza virus vaccine, inactivated 03/05/20 Ron rded influenza virus vaccine, inactivated 03/14/17 Ron rded influenza virus vaccine, inactivated 03/31/16 Ron rded influenza virus vaccine, inactivated 04/07/15 Ron rded Medications 2x2 nonwoven gauze 2x2 nonwoven gauze, See Instructions, # 100 each, Refills 4, Tot. Refills 4, Maintenance, use dailyto right toes as directed, 02/15/21 11:03:00 EDT, Supply Start Date: 02/15/21 Status: Ordered Aspir 81 Oral Enteric Coated Tablet 1 tablet = 81 mg, By Mouth, Daily, # 30 tablet, 0 Refills Start Date: 04/14/09 Stop Date: 05/14/09 Status: Ordered Darco forefoot offloading wedge shoe Darco forefoot offloading wedge shoe, See Instructions, # 1 each, Refills 0, Tot. Refills 0, Maintenance, wear everyday right foot, 02/15/21 11:05:00 EDT, Supply Start Date: 02/15/21 Status: Ordered glipiZIDE 2.5 mg oral tablet, extended release 1 tablet, By Mouth, Daily, # 90 tablet, 0 Refills, [facility] #[id number], 174, cm, 01/19/21 13:26:00 EDT, Height, 127.5, kg, 11/30/20 1:55:00 EDT, Dry Weight Start Date: 03/06/21 Status: Ordered hypoallergenic cloth tape 4 x 10 yds hypoallergenic cloth tape 4 x 10 yds, See Instructions, # 1 each, Refills 5, Tot. Refills 5, Maintenance, as directed daily, 02/15/21 11:04:00 EDT, Supply Start Date: 02/15/21 Status: Ordered lisinopril 20 mg oral tablet 1, tablet, By Mouth, Daily, # 90 tablet, Refills 0, Route to Pharmacy Electronically, [facility] #[id number], 174, cm, 01/19/21 13:26:00 EDT, Height, 127.5, kg, 11/30/20 1:55:00 EDT, Dry Weight Start Date: 03/06/21 Status: Ordered Metoprolol Tartrate 50 mg oral tablet 1.5 tablet, By Mouth, 2 times a day, # 270 tablet, 0 Refills, [facility] #[id number], 174, cm, 01/19/21 13:26:00 EDT, Height, 127.5, kg, 11/30/20 1:55:00 EDT, Dry Weight Start Date: 03/06/21 Status: Ordered Multi Vitamin+ 0 Refills, Maintenance, 05/29/18 21:44:42 EST Start Date: 05/29/18 Status: Ordered Silvasorb silver wound gel Silvasorb silver wound gel, See Instructions, # 1 each, Refills 5, Tot. Refills 5, Maintenance, useon right great and 2nd toes daily, 02/15/21 11:02:00 EDT, Supply Start Date: 02/15/21 Status: Ordered simvastatin 20 mg oral tablet 1, tablet, By Mouth, Daily at bedtime, # 90 tablet, Refills 1, Route to Pharmacy Electronically, [facility] #[id number], 174, cm, 01/19/21 13:26:00 EDT, Height, 127.5, kg, 11/30/20 1:55:00 EDT, Dry Weight Start Date: 03/06/21 Status: Ordered torsemide 20 mg oral tablet 1 tablet, By Mouth, 2 times a day, # 180 tablet, 0 Refills, Maintenance, 11/17/20 12:34:00 EDT, [facility] #[id number], 172, cm, 05/14/20 1:37:00 EST, Height, 127, kg, 05/14/20 1:37:00 EST, Dry Weight Start Date: 11/17/20 Status: Ordered warfarin 5 mg oral tablet 2 tablet, By Mouth, Daily, # 60 tablet, 0 Refills, [facility] #[id number], 174, cm, 01/19/21 13:26:00 EDT, Height, 127.5, kg, 11/30/20 1:55:00 EDT, Dry Weight Start Date: 03/07/21 Status: Ordered Problem List Condition Effective Dates Status Health Status Inform ant Aortic stenosis(Confirmed) Active Chronic atrial fibrillation(Confirmed) Active CKD (chronic kidney disease) , stage III(Confirmed) Active CKD (chronic kidney disease) , stage IV(Confirmed) Active Systolic CHF, chronic(Confirmed) Active 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
--- OUTSIDE RECORDS SUMMARY | 2024-01-20 06:13 | XMS_ITS | Continuity of Care Document ---
Author Organization [facility] Address [address] [place] [id number] Care Team Providers Care Burrito Maker Name Role Phone Vladimir Keys MD Primary Care Physician Encounter [facility] Date(s): 10/17/22 - 10/21/[address] [id number] Encounter Diagnosis Infection of right foot(Final) - 10/17/22 Diabetes mellitus(Final) - 10/17/22 Infection of right foot(Final) - 10/17/22 Diabetes mellitus(Final) - 10/17/22 Gout(Discharge Diagnosis) - 10/18/22 Leg pain(Discharge Diagnosis) - 10/18/22 Hyperlipidemia(Discharge Diagnosis) - 10/18/22 Discharge Disposition: A-Transfer VNA/Home Health Attending Physician: Diana Antunez MD Admitting Physician: Rick Dunaway DO Referring Physician: Not on Staff, Referring MD Allergies, Adverse Reactions, Alerts Substance Reaction [...] opioid drug. Start Date: 04/06/22 Status: Ordered amoxicillin-clavulanate 875 mg-125 mg oral tablet 1 tablet, By Mouth, 2 times a day, for 45 days, # 90 tablet, 0 Refills, Acute 12/05/22 10:09:00 EDT, 10/21/22 10:09:00 EDT, Tablet, [facility] #[id number], Partial fill upon patient request if the prescription is for a schedule II opioid drug., 17... Start Date: 10/21/22 Stop Date: 12/05/22 Status: Ordered B-12 1000 mcg oral tablet, extended release 1 tablet = 1,000 mcg, By Mouth, Daily, # 90 tablet, 1 Refills, Maintenance, 07/23/22 16:50:00 EST, Call [facility] #[id number], 182.88, cm, 05/09/22 12:50:00 EDT, Height, 125.1, kg, 04/23/22 14:36:00 EDT, Dry Weight Start Date: 07/23/22 Status: Ordered docusate sodium 150 mg/15 ml [...] By Mouth, 2 times a day, # 90 capsule, 1 Refills, Maintenance, 10/21/22 10:07:00 EDT, Capsule, [facility] #[id number], 177.8, cm, 10/21/22 7:55:00 EDT, Height, 106.6, kg, 10/18/22 3:46:00 EDT, Dry Weight Start Date: 10/21/22 Stop Date: 01/19/23 Status: Ordered FREESTYLE LITE BLOOD GLUCOSE STRIPS FREESTYLE LITE BLOOD GLUCOSE STRIPS, See Instructions, # 100 Unknown, 5 Refills, Maintenance, CHECKBLOOD SUGAR ONCE A DAY BEFORE BREAKFAST, 08/20/22 11:29:00 EST, 182.88, cm, 05/09/22 12:50:00 EDT, Height, 125.1, kg, 04/23/22 14:36:00 EDT, Dry Weight Start Date: 08/20/22 Status: Ordered gabapentin 100 mg oral capsule 200 mg, 2, capsule, By Mouth, 2 times a day, # 120 capsule, Refills 2, Tot. Refills 2, Maintenance,07/16/22 12:35:00 EST, Route to Pharmacy Electronically, [facility] #[id number], 182.88, cm, 05/09/22 12:50:00 EDT, Height, 125.1, kg, 04/23/22 14:... Start Date: 07/16/22 Status: Ordered gabapentin 100 mg oral capsule 200 mg, Capsule, By Mouth, 10/21/22 9:00:00 EDT Start Date: 10/21/22 Stop Date: 10/21/22 Status: Completed insulin lispro 100 units/mL injectable solution 2-10 [...] tablet, Refills 1, Tot. Refills 1, Maintenance, 07/23/22 16:50:00 EST, [id number], 182.88, cm, 05/09/22 12:50:00 EDT, Height, 125.1, kg, 04/23/22 14:36:00 EDT,... Start Date: 07/23/22 Status: Ordered metoprolol 50 mg oral tablet, extended release 150 mg, XL Tablet, By Mouth, 10/21/22 9:00:00 EDT Start Date: 10/21/22 Stop Date: 10/21/22 Status: Completed Multivit Therapeutic/Minerals Tablet 1 tablet, By Mouth, [...] 12/14/21 1:07:00 EDT, Route to [facility]ically, [id number], 180, cm, 12/13/21 12:56:00 EDT, Height, 136.6, kg, 09/08/21 16:31:00 EST, Dry Weight Start Date: 12/14/21 Status: Ordered warfarin 10 mg oral tablet See Instructions, 5mg By Mouth Daily except 7.5mg every , 0 Refills, Maintenance, 05/09/2213:15:00 EDT, Tablet, Partial fill upon patient request [...] valve stenosis, non-rheumatic Confirmed Active Obese class I Confirmed Active Obese class II Confirmed Active Leg pain Confirmed Active Phimosis of penis Confirmed Active Pressure ulcer of buttock Confirmed Active Prosthetic valve endocarditis Confirmed Active Type 2 diabetes mellitus Confirmed Active UTI (urinary tract infection) Confirmed Active 1Problem added by Discern Expert Diagnosis Diagnosis Type Effective Dates Health Status Cl inical Service Informant Gout Discharge Diagnosis 10/18/22 Non-Specified Leg pain Discharge Diagnosis 10/18/22 Non-Specified Hyperlipidemia Discharge Diagnosis 10/18/22 Non-Specified Results Orders for Microbiology Reports Name Date Urine Culture (URINE CULTURE) 10/19/22 Blood Culture 10/17/22 Blood Culture #2 10/17/22 Microbiology Reports TEST:Urine Culture STATUS:Auth (Verified) BODY SITE: SOURCE:URINE COLLECTED DATE/TIME:10/19/22 1:00 AM Urine Culture SPECIMEN DESCRIPTION : URINE SPECIAL REQUESTS : NONE CULTURE : NO GROWTH REPORT STATUS : FINAL 10/20/2022 TEST:Blood Culture, Second Order STATUS:Unauthenticated BODY SITE: SOURCE:Blood COLLECTED DATE/TIME:10/17/22 12:58 PM Blood Culture, Second Order SPECIMEN DESCRIPTION : BLOOD R AC SPECIAL REQUESTS : NONE CULTURE : NO GROWTH 4 DAYS REPORT STATUS : PRELIMINARY REPORT TEST:Blood Culture STATUS:Unauthenticated BODY SITE: SOURCE:Blood COLLECTED DATE/TIME:10/17/22 12:25 PM Blood Culture SPECIMEN DESCRIPTION : BLOOD L AC SPECIAL REQUESTS : NONE CULTURE : NO GROWTH 4 DAYS REPORT STATUS : PRELIMINARY REPORT Radiology Reports * Exam Date Time Procedure Performing Provider Status 10/17/22 1:46 PM Foot Min 3 Views Right Theresa Hodges; Auth (Verified) Notes: (Foot Min 3 Views Right) Reason For Exam: new R heel ulcer, ?osteo;Infection RESULT: Foot Min 3 Views Right Foot Min 3 Views Right CLINICAL INDICATION: Hx of Present Illness: pt presents to ed via ems, coming from home where pt's vna was concerned about wound to left heel worsening becoming warm and draining pus. pt is bedbound also has wound to left hip. pt is a ox4.; Reason: Infection; new R heel ulcer, ?osteo; Clinical Question(s): Osteomyelitis COMPARISONS: X-ray 08/15/2021 TECHNIQUE: AP, lateral and oblique views of the right foot were obtained. FINDINGS: There is diffuse soft tissue swelling throughout the plantar aspect of the foot most pronounced at the heel which is increased from the prior study. No erosive changes of the adjacent calcaneus. No x-ray evidence for osteomyelitis. There is chronic moderate to severe tarsometatarsal joint space narrowing again noted. There is also severe first MTP joint space narrowing which is not significantly changed. 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 There is no fracture or dislocation. The Lisfranc joint space is normally aligned. No retained foreign body. Hindfoot midfoot alignment is normal. IMPRESSION: Diffuse skin thickening and soft tissue swelling along the plantar aspect of the foot consistent with cellulitis. Ulceration along the plantar aspect of the heel. No erosive changes bone or other x-ray evidence for osteomyelitis. Sensitivity of x-ray for early osteomyelitis is limited. Arthritic changes throughout the foot, not significantly changed. WSN: [id number] Ordering Physician: Raúl Landeros Dictated By: Paul Lindo MD Dictated Date/Time: 10/17/22 2:05 pm Reviewed By: Paul Lindo MD Signed By: Paul Lindo MD Signed Date/Time: 10/17/22 2:05 pm Transcribed By: MARIYA Transcribed Date/Time: 10/17/22 1:59 pm Vital Signs Most recent to oldest [Reference Range]: 1 2 3 Height 177.8 cm (10/21/22 11:06 AM) 177.8 cm (10/21/22 7:30 AM) 177.8 cm (10/21/22 2:49 AM) Weight 106.6 kg (10/18/22 3:46 AM) Oxygen Saturation [94-100 %] 94 % (10/21/22 11:06 AM) 100 % (10/21/22 7:30 AM) 100 % (10/21/22 2:49 AM) Pulse Rate [55-90 bpm] 61 bpm (10/21/22 11:06 AM) 76 bpm (10/21/22 10:19 AM) 76 bpm (10/21/22 7:30 AM) Body Mass Index [18.5-24.99 kg/m2] 33.72 kg/m2 *>HHI* (10/18/22 3:46 AM) Blood Pressure [90-138/55-84 mm Hg] 130/46mm Hg (10/21/22 11:06 AM) 128/46mm Hg (10/21/22 10:19 AM) 128/46mm Hg (10/21/22 7:30 AM) Respiratory Rate [16-30 br/min] 18 br/min (10/21/22 11:06 AM) 18 br/min (10/21/22:19 AM) 20 br/min (10/21/22 7:30 AM) Temperature [96.8-100.4 DegF] 97.4 DegF (10/21/22 11:06 AM) 98.6 DegF (10/21/22 7:30 AM) 98.3 DegF (10/21/22 2:49 AM) Mode of Delivery (Oxygen) Room air (10/21/22 11:06 AM) Room air (10/21/22 7:30 AM) Nasal cannula (10/21/22 2:49 AM) Blood pressure sites Arm, right (10/21/22 11:06 AM) Arm, left (10/21/22 2:49 AM) Arm, left (10/20/22 7:35 PM) Temperature Route Oral (10/21/22 11:06 AM) Oral (10/21/22 7:30 AM) Oral (10/21/22 2:49 AM) Dry Weight 106.6 kg (10/18/22 3:46 AM) Weight Obtained Via Bed scale (10/18/22 3:46 AM) Dry Weight Obtained Via Bed scale (10/18/22 3:46 AM) Social History Social History Type Response Smoking [...] Safety Implantable Status Assigning Authority Unknown Unknown [id number] Unknown 12/26/26 Unknown Unknown Active Unknown Admission evaluation note * Rolando OLMOS, Yara Palomino: PERFORM, MODIFY Event Display: Admission Note Authored Date: Patient: ??KENDRA KEARNS ? Age:??77 Years?Sex:??Male?:??1945?? Chief Complaint/Reason for Consultation Heel wound History of Present Illness Mr. Kearns is a 77 gentleman with a PMH of type 2 diabetes and chronic wounds, s/p TAVR, CKD4,HTN, AF on coumadin who presents with nonhealing right heel wound.?? Accompanied by daughter who cares for his wound at home. ?? Patient states he has an acutely worsening right heel ulcer over the last week.?? He was seen by wound care who recommended he seek evaluation in the ED given worsening ulcer and signs of infection.?? States the ulcer has been increasingly red and has been draining pus.?? Denies fever, chills, shortness of breath, chest pain, abdominal pain, nausea/vomiting/diarrhea.?? Patient also has chronic left buttock and left thigh wound which are reportedly improved from previous but still painful.?? Patient is bedbound at baseline and developed a seizure when last year after prolonged hospitalization.?? He underwent debridement in OR for this heel wound last April and had been healing well before his daughter noticed purulence during dressing change on Friday. ?? On arrival to the ER his vitals were BP 96/70 mmHg, heart rate 85, 98% on room air.?? Labs showed WBC 9.2, Hb 9.7, MCV 98.1, ESR 90, glucose 135, creatinine 2.0, CRP 2, ESR 90, lactate 1.7.?? X-ray right foot showed diffuse skin thickening along plantar aspect of foot consistent with cellulitis, ulceration along plantar aspect of heel, no evidence of osteomyelitis.?? Vascular surgery was consulted for the nonhealing right calcaneal wound and are considering operative debridement/washout versus amputation. Review of Systems All systems reviewed and negative except as indicated in HPI. Objective Vital Signs?? Temperature: 97.7 DegF (10/17/22 20:50:00) Temperature Route: Oral (10/17/22 20:50:00) Pulse Rate: 83 bpm (10/17/22 21:50:00) Respiratory Rate: 16 br/min (10/17/22 20:05:00) Vented: No (10/17/22 21:50:00) Systolic Blood Pressure: 112 mm Hg (10/17/22 21:50:00) Diastolic Blood Pressure:??51 mm Hg??Low (10/17/22 21:50:00) Blood pressure sites: Arm, left (10/17/22 21:50:00) Mean Arterial Pressure: 79 mm Hg (10/17/22 12:29:00) Pulse Pressure: 61 mm Hg (10/17/22 21:50:00) Oxygen Saturation: 96 % (10/17/22 21:50:00) Mode of Delivery (Oxygen): Room air (10/17/22 21:50:00) Early Warning Score: 2 (10/17/22 21:59:38) ? Intake/Output? 10/17 17:23 10/17 07:00 04/05 07:00 04 07:00 04/03 07:00 ?? 10/17 23:01 0406 23:01 0406 06:59 04/05 06:59 04/ 06:59 Intake ?200 ?200 ?0 ?0 ?0 Output ?0 ?0 ?0 ?0 ?0 Net Total ?200 ?200 ?0 ?0 ?0 ? Physical Exam Constitutional: Alert, in no acute distress. Head EENT: Extraocular muscle movement intact.??Moist mucous membranes.?? Neck: Supple. No JVD. Respiratory: Clear to auscultation. No wheezing or crackles. No use of accessory muscles. Cardiovascular: S1S2 regular. No murmurs, rubs or gallops. Gastrointestinal: Abdomen soft, non-tender, non-distended. Normal bowel sounds. Genitourinary: No CVA tenderness. Extremities: No lower extremity pitting??edema. No cyanosis or clubbing. Right foot covered in clean dressing. Neurologic: AAOx3, Speech normal. No focal neurological deficits. Skin: No rash. Psychiatric: Normal mood and affect Assessment/Plan 77 gentleman with a PMH of type 2 diabetes and chronic wounds, s/p TAVR, CKD4, HTN, AF on coumadin who presents with nonhealing right heel wound.?? Accompanied by daughter who cares for his wound at home. ?? Nonhealing right calcaneal wound Hemodynamically stable with no leukocytosis -Appreciate surgery recs -Hospital antibiotic associated vancomycin - Follow-up MRI right foot with without contrast -Wound care: Iodoform packing to right heel wound; cover with DSD, kerlix. -Heel offloading at all times -Frequent repositioning to maintain skin integrity -Possible OR debridement vs amputation pending imaging and family discussion ?? Chronic left buttock, left thigh wound - wound care ?? Paroxysmal atrial fibrillation Rate controlled - continue metoprolol - holding warfarin given need for surgery ?? HTN - currently normotensive, monitor ?? CKD IV No KHADRA - avoid nephrotoxins - renally dose meds - monitor BMP ?? DM II - continue SSI - goal 140-180 ?? Code status: full DVT ppx:??lovenox Diet: diabetic Dispo: floors ?? Total Visit Time: I personally spent a total of 80 minutes, including both [id number] and pli-hemp-iv-face time on the date of the encounter, addressing the above diagnoses. Activities performed in this time include chart review, obtaining / reviewing history, performing amedically necessary evaluation, documentation and counseling. ?? 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 Past Surgical History History of bilateral total knee replacement Foot ulcer TAVR - Transcatheter aortic valve replacement in 06/2018 ? Social History Alcohol Details:??Use: Current. ??Frequency: 1-2 times per week. ??Type: Beer, Wine, Liquor. Employment/School Details:??Status: Retired. Exercise Details:??Self assessment: Poor condition. Home/Environment Details:??Living situation: Home/Independent. ??Lives with: Alone. Nutrition/Health Details:??Diet: Regular. Sexual Details:??Sexually involved in last 6 months: No. Substance Abuse Details:??Use: Never. Tobacco Details:??Use: Cigars or pipes but not daily within last 30 days. ??Other: occasionally, couple times a week.. ??Type: Cigars. Electronic Cigarette/Vaping Details:??Electronic Cigarette Use: Never. ? Family History Mother: Stroke Father: Myocardial infarction Other: Diabetes mellitus type II ? Medications Home Medications Acetaminophen (acetaminophen 325 mg oral tablet)?650?Milligram?2?tablet?By Mouth?Every 4 hours?as needed?as needed for fever / pain Allopurinol (allopurinol 300 mg oral tablet)?300?Milligram?1?tablet?By Mouth?Daily bifidobacterium-lactobacillus (Probiotic Formula)?By Mouth?Daily Cholecalciferol (Vitamin D3 1000 intl units oral capsule)?1?capsule?25?Microgram?By Mouth?Daily Collagenase Topical (Santyl 250 u/gm ointment)?1?mamta?Topically?Daily Cyanocobalamin (B-12 1000 mcg oral tablet, extended release)?1?tab(s)?1,000?Microgram?By Mouth?Daily Docusate (docusate sodium 150 mg/15 ml oral liquid)?10?Milliliter?100?Milligram?By Mouth?2 times a day?as needed?Constipation Doxycycline (doxycycline hyclate 100 mg oral capsule)?1?capsule?100?Milligram?By Mouth?2 times a day Ferrous Fumarate (ferrous fumarate 324 mg oral tablet)?1?tab(s)?324?Milligram?By Mouth?Daily Gabapentin (gabapentin 100 mg oral capsule)?200?Milligram?2?capsule?By Mouth?2 times a day Insulin Lispro (insulin lispro 100 units/mL injectable solution)?2-10 units?Subcutaneous Injection?3 times a day before meals?<< Sliding Scale Comments >>150 - 199 ?? 2 units Call if less than [phone] - 249 ?? 4 units 250 - 299 ?? 6 units 300 - 349 ?? 8 units 350 - 399 ?? 10 units Call if greater than 400<< Sliding Scale Comments >> Lactulose (lactulose 10 gm/15 ml oral syrup)?30?Milliliter?20?gram?By Mouth?Daily?as needed?as needed for constipation Melatonin (melatonin 3 mg oral tablet)?3?Milligram?By Mouth?Daily at bedtime?as needed?Insomnia Metoprolol (metoprolol 50 mg oral tablet, extended release)?150?Milligram?3?tablet?By Mouth?Daily Miscellaneous Rx (FREESTYLE LITE BLOOD GLUCOSE STRIPS)?See Instructions?CHECK BLOOD SUGAR ONCE A DAY BEFORE BREAKFAST Multivitamin With Minerals (Multivit Therapeutic/Minerals Tablet)?1?tab(s)?By Mouth?Daily Pantoprazole (pantoprazole 40 mg oral delayed release tablet)?1?tab(s)?40?Milligram?By Mouth?Daily Senna (Senna 8.6 mg oral tablet)?17.2?Milligram?2?tab(s)?By Mouth?Daily Simvastatin (simvastatin 20 mg oral tablet)?1?tablet?By Mouth?Daily at bedtime Warfarin (warfarin 10 mg oral tablet)?1?tab(s)?10?Milligram?By Mouth?Daily ? Inpatient Medications Medications (11) Active SCHEDULED: (4) Enoxaparin 40 mg Inj (Enoxaparin Inj) ??40 mg 0.4 mL, Subcutaneous Injection, Daily Insulin Lispro 100 units/mL Inj (3mL) (Insulin LISPRO Sliding Scale) ??2-10 units, Subcutaneous Injection, 3 times a day before meals NaCl 0.9% Flush 3ml (NaCL 0.9% Flush) ??3 mL, IV Push, Every 8 hours Piperacillin/Tazobactam 3.375 Gm Inj (Zosyn Extended IVPB) ??3.375 Gm, IVPB, Every 8 hours CONTINUOUS: (0) PRN: (7) Acetaminophen 325 mg Tablet (Acetaminophen Tablet) ??650 mg, By Mouth, Every 4 hours Dextromethorphan-Guaifenesin 20 mg-200 mg/10 mL Liqu UD (Robitussin DM Liquid) ??10 mL, By Mouth, Every 4 hours Melatonin 3 mg Tablet (Melatonin Tablet) ??3 mg, By Mouth, Daily at bedtime NaCl 0.9% Flush 3ml (NaCL 0.9% Flush) ??3 mL, IV Push, Every 8 hours Polyethylene Glycol 17 Gm Powder (MiraLax Powder) ??17 Gm 1 pack/packet, By Mouth, Daily Senna 8.6 mg / Docusate 50 mg tablet (Docusate/Senna Tablet) ??1 tablet, By Mouth, 2 times a day Simethicone 80 mg Chewable Tablet (Simethicone Tablet) ??80 mg, Chew, 3 times a day ? Results Recent Labs BLOOD COUNT & DIFF WBC 9.2 k/mm3 ()?? 10/17/2022 12:25 RBC 3.24 m/mm3 (Low)?? 10/17/2022 12:25 Hgb 9.7 Gm/dL (Low)?? 10/17/2022 12:25 Hct 31.8 % (Low)?? 10/17/2022 12:25 MCV 98.1 femtoliters (High)?? 10/17/2022 12:25 MCH 29.9 pg ()?? 10/17/2022 12:25 MCHC 30.5 g/dL (Low)?? 10/17/2022 12:25 Platelet Count 363 k/mm3 ()?? 10/17/2022 12:25 RDW-SD 48.8 femtoliters (High)?? 10/17/2022 12:25 MPV 10.2 femtoliters ()?? 10/17/2022 12:25 Nucleated RBC (Automated) 0.0 #/100 WBC'S ()?? 10/17/2022 12:25 Abs. NRBC 0.0 k/mm3 ()?? 10/17/2022 12:25 Abs. Neut 7.0 k/mm3 ()?? 10/17/2022 12:25 Abs. Lymph 0.9 k/mm3 ()?? 10/17/2022 12:25 Abs. Richardson 0.8 k/mm3 ()?? 10/17/2022 12:25 Abs. Eo 0.4 k/mm3 ()?? 10/17/2022 12:25 Abs. Baso 0.1 k/mm3 ()?? 10/17/2022 12:25 Neut % 75.7 % ()?? 10/17/2022 12:25 Lymph % 10.1 % (Low)?? 10/17/2022 12:25 Richardson % 8.4 % ()?? 10/17/2022 12:25 Eos % 4.7 % ()?? 10/17/2022 12:25 Baso % 0.7 % ()?? 10/17/2022 12:25 Imm Gran 0.4 % ()?? 10/17/2022 12:25 Abs. Imm Gran 0.0 k/mm3 ()?? 10/17/2022 12:25 ?? CHEM GENERAL Sodium 136 mmol/L ()?? 10/17/2022 12:25 Potassium 4.3 mmol/L ()?? 10/17/2022 12:25 Chloride 103 mmol/L ()?? 10/17/2022 12:25 Bicarbonate Level 26 mmol/L ()?? 10/17/2022 12:25 Anion Gap 7 ()?? 10/17/2022 12:25 Glucose Level 135 mg/dL (High)?? 10/17/2022 12:25 Glucose, POC 89 mg/dL ()?? 10/17/2022 20:07 BUN 37 mg/dL (High)?? 10/17/2022 12:25 Creatinine-Blood 2.0 mg/dL (High)?? 10/17/2022 12:25 Estimated GFR Creatinine 33 ML/MIN/1.73 M2 ()?? 10/17/2022 12:25 Calcium 10.3 mg/dL ()?? 10/17/2022 12:25 Protein, Total 6.3 Gm/dL ()?? 10/17/2022 12:25 Albumin 2.8 Gm/dL (Low)?? 10/17/2022 12:25 AG Ratio 0.8 ()?? 10/17/2022 12:25 Alkaline Phosphatase 128 units/L ()?? 10/17/2022 12:25 AST (SGOT) 19 units/L ()?? 10/17/2022 12:25 ALT (SGPT) 7 units/L ()?? 10/17/2022 12:25 Bilirubin, Total 0.3 mg/dL ()?? 10/17/2022 12:25 Lactate 1.7 mmol/L ()?? 10/17/2022 12:25 C-Reactive Protein 2.0 mg/dL (High)?? 10/17/2022 12:25 ?? HEME OTHER Sed Rate 90 mm/hr (High)?? 10/17/2022 12:25 Hold Lavender Top SPECIMEN DISCARDED AFTER 24 HOURS. ()?? 10/17/2022 12:25 Hold Blue Top SPECIMEN DISCARDED AFTER 4 HOURS. ()?? 10/17/2022 12:25 ?? MISC. CHEMISTRY Hold Green Top SPECIMEN DISCARDED AFTER 1 WEEK ()?? 10/17/2022 12:25 Hold Green Top 2 SPECIMEN DISCARDED AFTER 1 WEEK ()?? 10/17/2022 12:25 ?? VIROLOGY COVID-19 by RT-PCR NEGATIVE ()?? 10/17/2022 13:21 ? Blood Glucose Trend Glucose Level:??135 mg/dL??High (10/17/22 12:25:00) Glucose, POC: 89 mg/dL (10/17/22 20:07:00) ? CBC, CBC w/Diff?? CBC?? Differential?? WBC: 9.2 k/mm3 (12:25) Abs. Neut: 7 k/mm3 (12:25) RBC:??3.24 m/mm3??Low (12:25) Abs. Lymph: 0.9 k/mm3 (12:25) Hct:??31.8 %??Low (12:25) Abs. Richardson: 0.8 k/mm3 (12:25) RDW-SD:??48.8 femtoliters??High (12:25) Abs. Eo: 0.4 k/mm3 (12:25) Nucleated RBC (Automated): 0 #/100 WBC'S (12:25) Abs. Baso: 0.1 k/mm3 (12:25) Abs. NRBC: 0 k/mm3 (12:25) Neut %: 75.7 % (12:25) ?? Lymph %:??10.1 %??Low (12:25) ?? Richardson %: 8.4 % (12:25) ?? Eos %: 4.7 % (12:25) ?? Baso %: 0.7 % (12:25) ?? Imm Gran: 0.4 % (12:25) ?? Abs. Imm Gran: 0 k/mm3 (12:25) ? LFT Albumin:??2.8 Gm/dL??Low (12:25) Alkaline Phosphatase: 128 units/L (12:25) ALT (SGPT): 7 units/L (12:25) AST (SGOT): 19 units/L (12:25) Bilirubin, Total: 0.3 mg/dL (12:25) ?? Urinalysis?? No qualifying data available. ?? Microbiology ?? COVID-19 (Novel Coronavirus), Rapid PCR?? Completed?? Source: Nasal Body Site: Nose Collected Dt/Tm: 10/17/2022 12:58 Last Updated Dt/Tm: 10/17/2022 14:44 ? Blood Gases?? No qualifying data available. ?? EKG study * Event Display: ECG 12-Lead Authored Date: Please click on pdf link to open report * Event Display: ECG 12-Lead Authored Date: Ventricular Rate: 79 BPM Atrial Rate: 66 BPM QRS Duration: 158 ms Q-T Interval: 434 ms QTC Calculation(Bazett): 497 ms R [place]: 16 degrees T [place]: 157 degrees Atrial fibrillation Left bundle branch block Abnormal ECG When compared with ECG of 17-OCT-2022 12:29, MANUAL COMPARISON REQUIRED, DATA IS UNCONFIRMED Confirmed by JOHNSON GARCIA MD ([id number]) on 10/19/2022 10:56:39 AM [place]: JOHNSON GARCIA MD * Event Display: ECG 12-Lead Authored Date: Please click on pdf link to open report * Event Display: ECG 12-Lead Authored Date: Ventricular Rate: 85 BPM Atrial Rate: 92 BPM QRS Duration: 152 ms Q-T Interval: 400 ms QTC Calculation(Bazett): 476 ms R [place]: 6 degrees T [place]: 100 degrees Atrial fibrillation Left bundle branch block Abnormal ECG When compared with ECG of 25-APR-2022 23:06, No significant change was found Confirmed by NICOLE VANESSA MD ([id number]) on 10/21/2022 2:48:29 PM [place]: NICOLE VANESSA MD Hospital Progress note * Li Schafer RN: PERFORM, SIGN, VERIFY Event Display: Progress Note Hospital Authored Date: Patient: KENDRA KEARNS Age: 77 years Sex: Male : 1945 Associated Diagnoses: None Author: Li Schafer RN Findings Problem Related to Alteration in Integumentary : Alteration in Integumentary/new 10/21/2022 2:00 EDT Alteration in Integumentary Related to Immobility, Stage I, Stage II, Stage III,Stage IV, Unstageable Goals & Outcomes, Integumentary Nutritional intake is adequate for metabolic needs, Pt will maintain intact skin integrity, Wound will progress towards healing Interventions, Integumentary Cleanse all wounds with Normal Saline, Interdisciplinary consults as appropriate, Keep skin clean & dry, Monitor reddened areas for continued or increasing reddness, Relieve pressure off bony areas, Reposition pt off reddened areas BH Goals/Interventions, Integumentary Yes Integumentary, Problem Start 10/18/2022 3:51 Reviewed plan with, Integumentary Patient Patient Progression, Integumentary Pt progressing according to plan . Narrative/Incidental pt aox3, pt c/o slight discomfort to left hip, improved with Tylenol, pt denies SOB, wound care done, pt repositioned q2hr and as needed for comfort, pt encouraged to off load left hip, heels elevated, pt able to take pills whole with water, questions encouraged and answered, call alfredo placed within reach, bed in lowest locked position, will continue purposeful rounding. * Noemí Ny RN, I: VERIFY, PERFORM, SIGN Event Display: Progress Note Hospital Authored Date: Patient: KENDRA KEARNS Age: 77 years Sex: Male : 1945 Associated Diagnoses: None Author: Noemí Ny RN, I Findings Problem Related to Alteration in Integumentary : Alteration in Integumentary/new 10/20/2022 1:00 EDT Alteration in Integumentary Related to Immobility, Stage I, Stage II, Stage III, Stage IV, Unstageable Goals & Outcomes, Integumentary Nutritional intake is adequate for metabolic needs, Pt will maintain intact skin integrity, Wound will progress towards healing Interventions, Integumentary Cleanse all wounds with Normal Saline, Consult Wound Care as needed for further interventions, Encourage & assist pt to change position frequently, Keep skin clean & dry, Relieve pressure off bony areas, Reposition pt off reddened areas, Use barrier cream/ointment if pt's skin is frequently moist BH Goals/Interventions, Integumentary Yes Integumentary, Problem Start 10/18/2022 3:51 Reviewed plan with, Integumentary Patient Patient Progression, Integumentary Pt progressing according to plan . Evaluation pt a/ox3 vss afebrile complete assessment done as charted this am pt denies pain refusing insulin for bg 177 for lunch md aware will follow pt also refused bladder scan to be done pt voiding adequateamounts of clear yellow urine. dressing change done to right heel/foot with daughter who verbalized understanding she is asking for re-eval of foot by md prior to dc home with home care. dressing to left hip cdi this am and discussed dressings with daughter who verbalized understanding and was managing care at home call alfredo at side safety maintained continue plan of care . * Harmony OLMOS, Diana R: PERFORM Event Display: Progress Note Hospital Authored Date: Patient: ??KENDRA KEARNS ? Age:??77 Years?Sex:??Male?:??1945?? Subjective Patient seen and examined at bedside No significant overnight events Afebrile, saturating well on room air Patient??denies??any new symptoms today. ??Appears in good spirits.?? No??headache, dizziness,??abdominal pain, dysuria, pain in the legs or??hip wounds Labs reviewed fisheries manager following??to address patient barriers??for outpatient appointments??prior to discharge. Review of Systems ROS negative except as noted above Objective Vital Signs?? Temperature: 98.5 DegF (10/20/22 12:00:00) Temperature Route: Oral (10/20/22 12:00:00) Pulse Rate: 79 bpm (10/20/22 12:00:00) Respiratory Rate: 18 br/min (10/20/22 12:00:00) Systolic Blood Pressure: 125 mm Hg (10/20/22 12:00:00) Diastolic Blood Pressure:??54 mm Hg??Low (10/20/22 12:00:00) Blood pressure sites: Arm, left (10/20/22 12:00:00) Mean Arterial Pressure: 78 mm Hg (10/20/22 12:00:00) Pulse Pressure: 71 mm Hg (10/20/22 12:00:00) Oxygen Saturation: 100 % (10/20/22 12:00:00) Mode of Delivery (Oxygen): Room air (10/20/22 12:00:00) Early Warning Score: 0 (10/20/22 12:01:07) ? Intake/Output? 10/17 17:23 10/20 07:00 10/19 07:00 10/18 07:00 10/17 07:00 ?? 10/20 15:19 10/20 15:19 10/20 06:59 10/19 06:59 10/18 06:59 Intake ? 2180 ?480 ?540 ?960 ?200 Output ? 3000 ?850 ? 1200 ?950 ?0 Net Total ? -820 ? -370 ? -660 ? 10 ?200 ? Urine Count ?1 ?0 ?0 ?1 ?0 ? Physical Exam Constitutional:??AAO x 3, ??in no acute distress. Respiratory: Clear to auscultation. Cardiovascular: S1S2 regular. No murmurs, rubs or gallops. Gastrointestinal: Abdomen soft, non-tender, non-distended. Genitourinary: No CVA tenderness or pelvic fullness. Extremities: No lower extremity pitting??edema.?? Right foot??in clean dressing. left buttock and thigh wounds with intact dressing Neurologic: AAOx3, Speech normal. No focal neurological deficits. ??Moves all extremities. _ 72 Hour Antibiotic History Active Antibiotics Calendar Day Last Administered First Administered Amoxicillin-Clavulanate??1 tablet, By Mouth, 2 times a day ?3 10/20/2022 10:35 10/18/2022 22:20 Doxycycline??100 mg, By Mouth, Every 12 hours ?3 10/20/2022 04:54 10/18/2022 17:57 ? Stopped Antibiotics Stop Date/Time Last Administered First Administered Piperacillin-Tazobactam??3.375 Gm, 25 mL/hr, IVPB, Every 8 hours 10/18/2022 16:33 10/18/2022 14:30 10/17/2022 23:18 ? Results Recent Labs BLOOD COUNT & DIFF WBC 5.4 k/mm3 ()?? 10/19/2022 08:43 RBC 2.86 m/mm3 (Low)?? 10/19/2022 08:43 Hgb 8.7 Gm/dL (Low)?? 10/19/2022 08:43 Hct 27.8 % (Low)?? 10/19/2022 08:43 MCV 97.2 femtoliters (High)?? 10/19/2022 08:43 MCH 30.4 pg ()?? 10/19/2022 08:43 MCHC 31.3 g/dL (Low)?? 10/19/2022 08:43 Platelet Count 264 k/mm3 ()?? 10/19/2022 08:43 RDW-SD 48.9 femtoliters (High)?? 10/19/2022 08:43 MPV 10.1 femtoliters ()?? 10/19/2022 08:43 Nucleated RBC (Automated) 0.0 #/100 WBC'S ()?? 10/19/2022 08:43 Abs. NRBC 0.0 k/mm3 ()?? 10/19/2022 08:43 ?? CHEM GENERAL Sodium 137 mmol/L ()?? 10/19/2022 08:43 Potassium 4.4 mmol/L ()?? 10/19/2022 08:43 Chloride 104 mmol/L ()?? 10/19/2022 08:43 Bicarbonate Level 25 mmol/L ()?? 10/19/2022 08:43 Anion Gap 8 ()?? 10/19/2022 08:43 Glucose Level 75 mg/dL ()?? 10/19/2022 08:43 Glucose, POC 177 mg/dL (High)?? 10/20/2022 11:28 BUN 34 mg/dL (High)?? 10/19/2022 08:43 Creatinine-Blood 2.0 mg/dL (High)?? 10/19/2022 08:43 Estimated GFR Creatinine 34 ML/MIN/1.73 M2 ()?? 10/19/2022 08:43 Calcium 9.9 mg/dL ()?? 10/19/2022 08:43 ?? COAG INR 2.2 (High)?? 10/20/2022 07:53 Protime (PT) 21.8 seconds (High)?? 10/20/2022 07:53 ?? UA/URINALYSIS Appear/Color, Urine YELLOW ()?? 10/19/2022 01:00 Specific [place], Urine 1.016 ()?? 10/19/2022 01:00 pH, Urine 5.5 ()?? 10/19/2022 01:00 Albumin, Urine TRACE (Abnormal)?? 10/19/2022 01:00 Glucose, Urine NEGATIVE ()?? 10/19/2022 01:00 Ketones, Urine NEGATIVE ()?? 10/19/2022 01:00 Bilirubin, Urine NEGATIVE ()?? 10/19/2022 01:00 Hemoglobin, Urine 1+ (Abnormal)?? 10/19/2022 01:00 Nitrite, Urine POSITIVE (Abnormal)?? 10/19/2022 01:00 Leukocyte, Urine 3+ (Abnormal)?? 10/19/2022 01:00 Urobilinogen NORMAL mg/dL ()?? 10/19/2022 01:00 WBC's, Urine >182 /HPF (High)?? 10/19/2022 01:00 RBC's, Urine 7 /HPF (High)?? 10/19/2022 01:00 Bacteria SLIGHT HPF (Abnormal)?? 10/19/2022 01:00 Squamous Epith 4 /HPF ()?? 10/19/2022 01:00 Mucus SLIGHT /LPF ()?? 10/19/2022 01:00 Hold Urine Culture Testing available 48 hours from time of collection. ()?? 10/19/2022 01:00 ? Microbiology ?? COVID-19 (Novel Coronavirus), Rapid PCR?? Completed?? Source: Nasal Body Site: Nose Collected Dt/Tm: 10/17/2022 12:58 Last Updated Dt/Tm: 10/17/2022 14:44 ? Assessment/Plan ?? 77 gentleman with a PMH of type 2 diabetes and chronic wounds, s/p TAVR, CKD4, HTN, AF on coumadin who presents with nonhealing right heel wound.?? Accompanied by daughter who cares for his wound at home. ?? Nonhealing right calcaneal wound Hemodynamically stable with no leukocytosis - Vascular surgery performed??bedside debridement of the right heel??and recommended??no further??imaging or??surgical intervention at this time.?? Stated that the wound was probing to the bone??and by itself suggest osteomyelitis. ID consult recommended??oral antibiotics for 6 weeks if no surgical intervention is being planned. ??Augmentin plus doxycycline. ??ID follow-up will be arranged in 3-4 wks. - Follow-up wound care recommendations by vascular surgery: Iodoform packing to right heel wound; cover with DSD, kerlix. ??While inpatient would recommend performing dressing changes twice daily okay to transition to once daily once discharged. - Heel offloading at all times - Frequent repositioning to maintain skin integrity - vasc surgery recommended wound clinic f/u for continuity of care ?? Chronic left buttock, left thigh wound - wound care consult noted, f/u recs Follow-up in wound clinic as outpatient. ?? Delirium possible UTI Pt had transient confusion with urinary retention on 10/19. Mental status??back to normal in the morning UA concerning for UTI, Urine cx neg likely because he is on appropriate Abx Continue??Augmentin and doxycycline??as above Monitor??serial bladder scans??to evaluate for PVR ?? Paroxysmal atrial fibrillation Rate controlled - continue metoprolol -??resumed warfarin . INR therapeutic ?? HTN - currently normotensive on metoprolol, monitor BP ?? CKD IV Cr at baseline - avoid nephrotoxins - renally dose meds - monitor BMP ?? DM II - continue SSI - goal 140-180 ?? Code status: full DVT ppx:??lovenox Diet: diabetic ?? Updated patient's daughter over phone RETA DESMOND: ?Wants to address transportation to wound clinic , ID office prior to dc. consulted CM Possible DC home??in??am ? Note * Deanne Layton RN: PERFORM Event Display: Discharge/Transfer Note Hospital Authored Date: [id number] Nursing Discharge Note Entered On: 10/21/2022 15:24 EDT Performed On: 10/21/2022 15:23 EDT by Deanne Layton RN Nursing Discharge Note 2 Discharge Time : 10/21/2022 15:02 EDT Discharge Level of Care at Discharge : Homehealth/VNA Discharge VNA/Hospice/Home Care(v001) : [facility] [phone] Discharge Medical Equip bOombate(v001) : [employer] Patient Left Unit Via : Ambulance Patient Accompanied Off Unit with : Ambulance/Chair Van Personnel Handover Given to Transport Personnel : Yes DC Instructions Provided & Signed by Pt : Yes Patient Understands D/C Instructions : Yes Verbalized Understanding of D/C Plan By : Patient Patient Instructions Discharge Signed : Yes Did Pt have Specialty Bed or Wound Vac : Yes Calin LOREDO, Deanne Palomino - 10/21/2022 15:23 EDT * Harmony OLMOS, Diana Johns: PERFORM, MODIFY Event Display: Discharge/Transfer Note Hospital Authored Date: [id number] Patient: ??KENDRA KEARNS ? Age:??77 Years?Sex:??Male?:??1945?? Patient Information Discharge Location: [facility] Primary Care Physician: Vladimir Keys MD Admit Date/Time: 10/17/22 17:23 Discharge Disposition Discharge Disposition: Home with Home Health Discharge Diagnosis Nonhealing right calcaneal wound Rt heel Osteomyelitis Chronic left buttock, left thigh wound, Pressure wounds : POA Delirium: resolved possible UTI Paroxysmal atrial fibrillation HTN CKD IV Diabetes mellitus (E11.9) ? _ Discharge Medications Acetaminophen (acetaminophen 325 mg oral tablet)?650?Milligram?2?tablet?By Mouth?Every 4 hours?as needed?as needed for fever / pain Amoxicillin-Clavulanate (amoxicillin-clavulanate 875 mg-125 mg oral tablet)?1?tab(s)?By Mouth?2 times a day?for 45?Days Cyanocobalamin (B-12 1000 mcg oral tablet, extended release)?1?tab(s)?1,000?Microgram?By Mouth?Daily Docusate (docusate sodium 150 mg/15 ml oral liquid)?10?Milliliter?100?Milligram?By Mouth?2 times a day?as needed?Constipation Doxycycline (doxycycline hyclate 100 mg oral capsule)?1?capsule?100?Milligram?By Mouth?2 times a day?for 45?Days Gabapentin (gabapentin 100 mg oral capsule)?200?Milligram?2?capsule?By Mouth?2 times a day Insulin Lispro (insulin lispro 100 units/mL injectable solution)?2-10 units?Subcutaneous Injection?3 times a day before meals?<< Sliding Scale Comments >>150 - 199 ?? 2 units Call if less than [phone] - 249 ?? 4 units 250 - 299 ?? 6 units 300 - 349 ?? 8 units 350 - 399 ?? 10 units Call if greater than 400<< Sliding Scale Comments >> Lactulose (lactulose 10 gm/15 ml oral syrup)?30?Milliliter?20?gram?By Mouth?Daily?as needed?as needed for constipation Melatonin (melatonin 3 mg oral tablet)?3?Milligram?By Mouth?Daily at bedtime?as needed?Insomnia Metoprolol (metoprolol 50 mg oral tablet, extended release)?150?Milligram?3?tablet?By Mouth?Daily Miscellaneous Rx (FREESTYLE LITE BLOOD GLUCOSE STRIPS)?See Instructions?CHECK BLOOD SUGAR ONCE A DAY BEFORE BREAKFAST Multivitamin With Minerals (Multivit Therapeutic/Minerals Tablet)?1?tab(s)?By Mouth?Daily Pantoprazole (pantoprazole 40 mg oral delayed release tablet)?1?tab(s)?40?Milligram?By Mouth?Daily Simvastatin (simvastatin 20 mg oral tablet)?1?tablet?By Mouth?Daily at bedtime Warfarin (warfarin 10 mg oral tablet)?See Instructions?5mg By Mouth Daily except 7.5mg every thursdays ? 72 Hour Antibiotic History Active Antibiotics Calendar Day Last Administered First Administered Doxycycline??100 mg, By Mouth, Every 12 hours ?4 10/21/2022 07:13 10/18/2022 17:57 Amoxicillin-Clavulanate??1 tablet, By Mouth, 2 times a day ?4 10/20/2022 21:22 10/18/2022 22:20 ? Stopped Antibiotics Stop Date/Time Last Administered First Administered Piperacillin-Tazobactam??3.375 Gm, 25 mL/hr, IVPB, Every 8 hours 10/18/2022 16:33 10/18/2022 14:30 10/17/2022 23:18 ? Vaccinations and Immunoprophylaxis influenza virus vaccine, inactivated: 0.7 Unknown (04/24/21 08:00:00) influenza virus vaccine, inactivated: 0.5 Unknown (03/05/20 08:00:00) influenza virus vaccine, inactivated: 0.5 Unknown (03/14/17 08:00:00) influenza virus vaccine, inactivated: 0.5 Unknown (03/31/16 08:00:00) influenza virus vaccine, inactivated: 0.5 Unknown (04/07/15 08:00:00) SARS-CoV-2 (COVID-19) mRNA BNT-162b2 vac: 0.5 Unknown (09/27/21 08:00:00) SARS-CoV-2 (COVID-19) mRNA BNT-162b2 vac: 0.3 Unknown (11/21/20 08:00:00) SARS-CoV-2 (COVID-19) mRNA BNT-162b2 vac: 0.3 Unknown (10/29/20 08:00:00) ? Durable Medical Equipment Discharge recommendations: Rehab (05/01/22) Name of Agency #1: [facility] (03/29/22) Agency Tick Inspector #1: [facility] (03/29/22) Service Categories #1: Occupational Therapy, Physical Therapy, Correction (03/29/22) Service Comments #1: You are being discharged to a [facility] for continued senior living, physical and occupational therapy. (03/29/22) Ambulatory devices needed: None (10/20/22) ? Medications Started Augmentin Refilled Doxycycline Medications Discontinued -- Doses Changed -- Allergies Allergies ?(Active and Proposed Allergies Only) CefTRIAXone Sodium? (Severity: Unknown severity, Onset: Unknown) ? [facility] f[facility]u f/u CBC, BMP, ESR/CRP every other week while on antibiotics. send to ID Ensure f/u in ID clinic and in wound clinic Objective Assessment and Plan ?? 77 gentleman with a PMH of type 2 diabetes and chronic wounds, s/p TAVR, CKD4, HTN, AF on coumadin who presents with nonhealing right heel wound.?? Accompanied by daughter who cares for his wound at home. ?? Nonhealing right calcaneal wound Rt heel Osteomyelitis Hemodynamically stable with no leukocytosis - Vascular surgery performed??bedside debridement of the right heel??and recommended??no further??imaging or??surgical intervention at this time.?? Stated that the wound was probing to the bone??and by itself suggest osteomyelitis. rec medical management - Follow-up wound care recommendations by vascular surgery: Iodoform packing to right heel wound; cover with DSD, kerlix. ??While inpatient would recommend performing dressing changes twice daily okay to transition to once daily once discharged. - ID consult recommended??oral Antibiotics Augmentin plus doxycycline for 6 weeks if no surgical intervention is being planned.??f/u labs Q other week. Will need to continue his lifelong suppression??with po doxycycline??. ?ID follow- up will be arranged in 3-4 wks. - Heel offloading at all times - Frequent repositioning to maintain skin integrity - vasc surgery recommended wound clinic f/u for continuity of care. Appt scheduled 10/22 at 8 AM ?? Chronic left buttock, left thigh wound - wound care consult noted, f/u recs Follow-up in wound clinic as outpatient. ?? Delirium possible UTI Pt had transient confusion with urinary retention on 10/19. Mental status??back to normal in the morning and stable UA concerning for UTI, Urine cx neg likely because he is on appropriate Abx Continue??Augmentin and doxycycline??as above ?? Paroxysmal atrial fibrillation Rate controlled - continue metoprolol -??resumed home warfarin . INR therapeutic ?? HTN - currently normotensive on metoprolol, monitor BP ?? CKD IV Cr at baseline - monitor BMP Q other week while on Abx ?? DM II - continue SSI ? Updated patient's daughter over phone DESMOND MCDUFFIE: ? consulted CM to address barriers for transportation as outpt Pt and family refused SNF. ??DC home??with services ? Vital Signs?? Temperature: 98.6 DegF (10/21/22 07:30:00) Temperature Route: Oral (10/21/22 07:30:00) Pulse Rate: 76 bpm (10/21/22 07:30:00) Respiratory Rate: 20 br/min (10/21/22 07:30:00) Systolic Blood Pressure: 128 mm Hg (10/21/22 07:30:00) Diastolic Blood Pressure:??46 mm Hg??Low (10/21/22 07:30:00) Blood pressure sites: Arm, left (10/21/22 02:49:00) Mean Arterial Pressure: 73 mm Hg (10/21/22 07:30:00) Pulse Pressure: 82 mm Hg (10/21/22 07:30:00) Oxygen Saturation: 100 % (10/21/22 07:30:00) Mode of Delivery (Oxygen): Room air (10/21/22 07:30:00) Early Warning Score: 0 (10/21/22 07:56:05) ? . Physical Exam Consultants Constitutional:??AAO x 3, ??in no acute distress. Respiratory: Clear to auscultation. Cardiovascular: S1S2 regular. No murmurs, rubs or gallops. Gastrointestinal: Abdomen soft, non-tender, non-distended. Genitourinary: No CVA tenderness or pelvic fullness. Extremities: No lower extremity pitting??edema.?? Right foot??in clean dressing. left buttock and thigh wounds with intact dressing Neurologic: AAOx3, Speech normal. No focal neurological deficits. ??Moves all extremities. Pending Results ?? COVID-19 (2019 Novel Coronavirus) PCR ordered on 10/21/2022 ?? Patient Education Titles Discharge Instructions for Osteomyelitis?? Follow-Up Appointments Added Follow Up ?Time Frame ?Comments Danielle OLMOS, Leonides Miller?Only if Needed.?VASCULAR SURGERY Taylor Kennedy MD?ID follow up. Expect call with f/u appointment in 3-4 weeks. Vladimir Keys MD?1 to 2 weeks Kendra Padilla MD?10/22/2022 08:00?Call to reschedule appointment if you need to Post Discharge Care Wound Care: Wound Site: Right heel wound ??Iodoform packing, cover with DSD/kerlix. Elevate heels off bed at all times. ??every 24 hours ; ?Left greater trochanter (L hip) Every other day; ? L posterior iliac crest (L lower sacrum) Every other day; ? L heel & in between L toes (2/3&3/4) Every third day Discharge ?10/21/22 9:54:00 EDT Discharge Prescriptions ?ePrescribed, ??Discharge once transportation issue is addressed by case management, ??239:55:00 EDT Home Health Face to Face *Denotes mandatory waite ?? *I certify that this patient is under my care and that I or an allowed non- physician working with me had a face to face encounter with the patient on this date:??10/21/2022 10:24 ?? *The encounter with the patient was in whole, or in part, for the following medical condition, which is the primary diagnosis(es) for home health care:??Nonhealing?? wounds Rt heel Osteomyelitis Chronic atrial fibrillation (I48.20) Diabetes mellitus (E11.9) Gout (M10.9) Hyperlipidemia (E78.5) Infection of right foot (L08.9) Leg pain (M79.606) ? *Select the indications for the discipline/s that are being arranged for this patient. Nursing (select all that apply): [_] None [x_] Medication management (reconciliation, teaching)?? [x_] Chronic disease management?? [x_] Wound care and treatment?? [_] Home safety evaluation [_] Administer SQ/IM/IV medications?? [_] Cath care?? [_] Drain care?? [_] Trach or GT care?? Other _ Occupation Therapy (select all that apply): [_] None [x_] ADL Management [_] Fall prevention training [_] Energy conservation [_] Cognitive training Other _ Physical Therapy (select all that apply): [_] None [x_] Functional mobility training [x_] Home exercise program to strengthen [_] Increase ROM?? [_] Falls prevention training [x_] Home maintenance program for chronic disease Other _ Speech Therapy (select all that apply): [_] None [_] Swallow evaluation and training [_] Speech and language training [_] Cognitive training to process, organize, and/or recall information Other _ ? *Homebound due to (select all that apply): [x_] Inability to leave home without assistance/supervision [_] Inability to ambulate without assistance [_] Pain [_] Decreased strength and endurance [_] Unsteady gait [_] Severe SOB and fatigue [_] Impaired transfers [_] Inability to negotiate stairs [_] Limited weight bearing [_] Mental status change? *Physician Signature: _Diana Pickens MD ?? *By signing this, I certify that I have personally evaluated the patient and agree with the findings and recommendations as documented above. ? Results Discharge Labs BLOOD COUNT & DIFF WBC 5.4 k/mm3 ()?? 10/19/2022 08:43 RBC 2.86 m/mm3 (Low)?? 10/19/2022 08:43 Hgb 8.7 Gm/dL (Low)?? 10/19/2022 08:43 Hct 27.8 % (Low)?? 10/19/2022 08:43 MCV 97.2 femtoliters (High)?? 10/19/2022 08:43 MCH 30.4 pg ()?? 10/19/2022 08:43 MCHC 31.3 g/dL (Low)?? 10/19/2022 08:43 Platelet Count 264 k/mm3 ()?? 10/19/2022 08:43 RDW-SD 48.9 femtoliters (High)?? 10/19/2022 08:43 MPV 10.1 femtoliters ()?? 10/19/2022 08:43 Nucleated RBC (Automated) 0.0 #/100 WBC'S ()?? 10/19/2022 08:43 Abs. NRBC 0.0 k/mm3 ()?? 10/19/2022 08:43 Abs. Neut 5.8 k/mm3 ()?? 10/18/2022 05:40 Abs. Lymph 0.7 k/mm3 (Low)?? 10/18/2022 05:40 Abs. Richardson 0.7 k/mm3 ()?? 10/18/2022 05:40 Abs. Eo 0.4 k/mm3 ()?? 10/18/2022 05:40 Abs. Baso 0.0 k/mm3 ()?? 10/18/2022 05:40 Neut % 76.4 % (High)?? 10/18/2022 05:40 Lymph % 8.9 % (Low)?? 10/18/2022 05:40 Richardson % 9.1 % ()?? 10/18/2022 05:40 Eos % 4.6 % ()?? 10/18/2022 05:40 Baso % 0.5 % ()?? 10/18/2022 05:40 Imm Gran 0.5 % ()?? 10/18/2022 05:40 Abs. Imm Gran 0.0 k/mm3 ()?? 10/18/2022 05:40 ?? CHEM GENERAL Sodium 137 mmol/L ()?? 10/19/2022 08:43 Potassium 4.4 mmol/L ()?? 10/19/2022 08:43 Chloride 104 mmol/L ()?? 10/19/2022 08:43 Bicarbonate Level 25 mmol/L ()?? 10/19/2022 08:43 Anion Gap 8 ()?? 10/19/2022 08:43 Glucose Level 75 mg/dL ()?? 10/19/2022 08:43 Glucose, POC 77 mg/dL ()?? 10/21/2022 07:35 BUN 34 mg/dL (High)?? 10/19/2022 08:43 Creatinine-Blood 2.0 mg/dL (High)?? 10/19/2022 08:43 Estimated GFR Creatinine 34 ML/MIN/1.73 M2 ()?? 10/19/2022 08:43 Calcium 9.9 mg/dL ()?? 10/19/2022 08:43 Phosphorus 2.5 mg/dL ()?? 10/18/2022 05:40 Magnesium 1.3 mg/dL (Low)?? 10/18/2022 05:40 Protein, Total 5.1 Gm/dL (Low)?? 10/18/2022 05:40 Albumin 2.3 Gm/dL (Low)?? 10/18/2022 05:40 AG Ratio 0.8 ()?? 10/18/2022 05:40 Alkaline Phosphatase 106 units/L ()?? 10/18/2022 05:40 AST (SGOT) 13 units/L ()?? 10/18/2022 05:40 ALT (SGPT) 7 units/L ()?? 10/18/2022 05:40 Bilirubin, Total 0.5 mg/dL ()?? 10/18/2022 05:40 Lactate 1.7 mmol/L ()?? 10/17/2022 12:25 C-Reactive Protein 2.0 mg/dL (High)?? 10/17/2022 12:25 ?? COAG INR 2.3 (High)?? 10/21/2022 07:50 Protime (PT) 22.6 seconds (High)?? 10/21/2022 07:50 ?? HEME OTHER Sed Rate 90 mm/hr (High)?? 10/17/2022 12:25 Hold Lavender Top SPECIMEN DISCARDED AFTER 24 HOURS. ()?? 10/17/2022 12:25 Hold Blue Top SPECIMEN DISCARDED AFTER 4 HOURS. ()?? 10/17/2022 12:25 ? MISC. CHEMISTRY Hold Green Top SPECIMEN DISCARDED AFTER 1 WEEK ()?? 10/17/2022 12:25 Hold Green Top 2 SPECIMEN DISCARDED AFTER 1 WEEK ()?? 10/17/2022 12:25 ?? UA/URINALYSIS Appear/Color, Urine YELLOW ()?? 10/19/2022 01:00 Specific [place], Urine 1.016 ()?? 10/19/2022 01:00 pH, Urine 5.5 ()?? 10/19/2022 01:00 Albumin, Urine TRACE (Abnormal)?? 10/19/2022 01:00 Glucose, Urine NEGATIVE ()?? 10/19/2022 01:00 Ketones, Urine NEGATIVE ()?? 10/19/2022 01:00 Bilirubin, Urine NEGATIVE ()?? 10/19/2022 01:00 Hemoglobin, Urine 1+ (Abnormal)?? 10/19/2022 01:00 Nitrite, Urine POSITIVE (Abnormal)?? 10/19/2022 01:00 Leukocyte, Urine 3+ (Abnormal)?? 10/19/2022 01:00 Urobilinogen NORMAL mg/dL ()?? 10/19/2022 01:00 WBC's, Urine >182 /HPF (High)?? 10/19/2022 01:00 RBC's, Urine 7 /HPF (High)?? 10/19/2022 01:00 Bacteria SLIGHT HPF (Abnormal)?? 10/19/2022 01:00 Squamous Epith 4 /HPF ()?? 10/19/2022 01:00 Mucus SLIGHT /LPF ()?? 10/19/2022 01:00 Hold Urine Culture Testing available 48 hours from time of collection. ()?? 10/19/2022 01:00 ? VIROLOGY COVID-19 by RT-PCR NEGATIVE ()?? 10/17/2022 13:21 ? Microbiology ?? COVID-19 (Novel Coronavirus), Rapid PCR?? Completed?? Source: Nasal Body Site: Nose Collected Dt/Tm: 10/17/2022 12:58 Last Updated Dt/Tm: 10/17/2022 14:44 COVID-19 (2019 Novel Coronavirus) PCR?? Collected?? Source: Nasal Body Site: Nose Collected Dt/Tm: 10/21/2022 08:08 Last Updated Dt/Tm: 10/21/2022 05:00 ? Imaging(s) ?Foot Min 3 Views Right ?? 10/17/2022 13:46??by Paul Lindo MD ? Consults(s) ?Consultation Note ?? 10/18/2022 15:41??by Taylor Kennedy MD ?Addendum by Taylor Kennedy MD on October 18, 2022 16:34:24 EDT (Verified) ? Update: No plan on further surgical intervention. In that case I would tx pt for calcaneal OM with po Augmentin 875/125 q 12hrs and Doxycycline 100mg BID to complete a 6 wks course. After which I would continue his lifelong suppression with po doxycycline. Pt can f/u with me in ID clinic 3 to 4 weeks . Recommend labs cbc, bmp, esr/crp in every other week. ?? Outpatient Parenteral Antimicrobial Treatment OPAT Plan indications: rt calcaneal OM ??Antibiotic regimen: Augmentin and Doxycycline Treatment Start: from 10/17 ??Planned treatment duration: 6 wks ??Labs every other week: cbc, bmp, esr/crp ?? ID clinic appt: Requested Scheduled ??Please have outpatinet labs from [facility] faxed to [facility] ? ID will sing off care ??THank You ?Consultation Note ?? 10/18/2022 15:17??by Hannah Mcgrath RN ?Recommendations: ?? 1.) L heel & in between L toes (2/3&3/4): Gently cleanse wound bed followed by the periwound with VASHE solution moistened gauze. Allow to dry. Apply Iodosorb to wound beds. Cover with DSD. Wrap with kerlix. Change every third day and PRN for soilage/saturation. Separate all toes with DSD. ?? 2.) L posterior iliac crest (L lower sacrum): Gently cleanse wound bed followed by the periwound with VASHE solution moistened gauze. Allow to dry. Apply Triad to periwound/areas of erythema. Cut Aquacel ag to appropriate size for wound bed. Apply Aquacel ag to wound bed. Cover with a Mepilex dressing or DSD/medipore. Change every other day and PRN for soiling/saturation. *If aquacel ag is difficult to remove with dressing changes, please re-consult Inpatient Wound CareTeam. Trauma can occur when removing a dry adhered dressing from a dry wound. ?? 3.) Left greater trochanter (L hip): Gently cleanse wound bed followed by the periwound with VASHE solution moistened gauze. Allow to dry. Apply layer of Triad to wound bed. Cover with Mepilex foam dressing. Change every other day and PRN for soilage/saturation. ?? 4.) Continue use of specialty bed/low air loss mattress 5.) Turn and reposition every 2 hours and PRN 6.) Continue to offload bony prominences 7.) Continue to provide optimal nutritional support; nutrition consult placed 8.) Provide Gaymar cushion to chair when patient OOB ?Consultation Note ?? 10/17/2022 15:45??by Keiry Buckner NP ?VASCULAR SURGERY Impression and Plan Kendra Kearns is a 77 year old male known to vascular service with PMH of CKD4, DM2, HTN, AF on coumadin who presents to [facility] for concern of nonhealing right heel wound. He is hemodynamically normal with no leukocytosis. Last vascular studies show adequate blood flow to the right foot, which has palpable pedal pulses on exam. Underwent OR debridement for this heel wound last April and hadbeen healing well, however a few days ago the daughter noticed purulence as well as the developmentof erythema on the plantar aspect of the foot. The wound probes to bone and there is significant tracking toward the midfoot. Of note, the patient is bedbound per the daughter, although unclear the cause. At this time we continue to recommend IV broad-spectrum antibiotics and he can be transitionedto oral equivalents once ready for discharge from medical perspective, he underwent a bedside incision and drainage broke up the loculations within the area now without as much pus then flushed the wound followed by packing with iodoform. At this time we recommend wound care consultation for outpatient continuity of wound care, vascular surgery will leave wound care instructions, and he will not require further operative intervention from our perspective at this point. Vascular surgery to sign off. Recs: -IV abx-broad spectrum -Wound care: Iodoform packing to right heel wound; cover with DSD, kerlix. While inpatient would recommend performing dressing changes twice daily okay to transition to once daily once discharged. -Heel offloading at all times -Frequent repositioning to maintain skin integrity -Rest of care per primary team -vascular surgery to sign off ?? VASCULAR [id number] Case discussed with attending: Dr Santos ?? Addendum by Cortez OLMOS, Cesar Palomino on October 18, 2022 10:19 EDT (Verified) Incision and drainage bedside The area was milked prior to proceeding removing any remaining pus after this morning's dressing change, we then used a Hannah clamp to explore the wound again breaking up any further loculations thathad not been broken up yesterday, we then proceeded with copiously irrigating the wound site with normal saline until it ran clean followed by packing with half-inch iodoform packin The wound was then dressed with ABD Kerlix wrap. Overall patient tolerated procedure well. ? 35_ minutes spent on discharge * Calin LOREDO, Deanne Palomino: PERFORM, MODIFY Event Display: Patient Education/Instruction Authored Date: [id number] Inpatient Adult Discharge Instructions [address] [address] Name: KENDRA KEARNS : 1945 Visit: 10/17/2022 17:23:00 Current Date: 10/21/2022 12:14 Account: [id number] Inpatient Adult Discharge Instructions We would like to thank you for allowing us to assist you with your healthcare needs. The following includes patient education materials and information regarding your injury/illness. Our entire staffstrives to provide an excellent experience for our patients and their families. PLEASE ENSURE YOU FOLLOW-UP PER THE INSTRUCTIONS BELOW! ?? YOUR OPINION IS IMPORTANT TO US! Please complete the survey you may receive by mail or email. Your feedback will be used to make improvements to the healthcare experiences of our patients and their families. Surveys are administered by [employer]. ?? If further treatment with your primary care physician or another doctor is recommended, it is important for you to keep the appointment. Call your primary care physician or return to the Emergency Department immediately if your condition worsens, fails to improve, or new symptoms develop. If you need to find a doctor, you can call [facility] for a referral at [phone] or toll free at [phone] or log in to [email or web address].. ?? You can view and manage your care through the patient portal or by using a health care mamta of your choosing. [employer] is a website that allows you to securely view your medical information including your hospital discharge summary, office visit summaries, medications and follow-up visits. You can also request appointments, renew medications, and request access to your medical information using a health care mamta of your choosing, or just ask a question. You can enroll at [email or web address] or register during your next office visit. You have been discharged from [facility], Patient Care Unit: S3. If you have any questions regarding these instructions after you leave, please call us and we will be happy to assist you. [facility] Your Care Team Attending Physician Diana Antunez MD Discharging Providers Diana Antunez MD Reason for Admission Heel wound Your Diagnosis Infection of right foot Diabetes mellitus Infection of right foot Diabetes mellitus Gout Leg pain Chronic atrial fibrillation Hyperlipidemia Tests Performed Below is a partial list of the tests performed during your hospitalization. You may have had other tests and procedures not included in this list. Please discuss all test results with your provider. CBC w/ Differential Comprehensive Metabolic Panel COVID-19 (Novel Coronavirus), Rapid PCR CRP ESR GLUCOSE POC HOLD BLUE TUBE HOLD GREEN TOP X2 HOLD GREEN TUBE HOLD LAVENDER TUBE INR Lactate Level Magnesium Level Phosphorus Level Urinalysis w/hold for Urine Culture XR Foot Min 3 Views Right Primary Care Provider Ludmila OLMOS Vladimir U Advance Directive Health Care Proxy on File Yes - Health Care Proxy Yes - MOLST Discharge Vitals Temperature: 97.4 DegF Height: 177.8 cm Pulse Rate: 61 bpm Weight: 106.6 kg Respiratory Rate: 18 br/min Body Mass Index:??33.72 kg/m2??Critical Systolic Blood Pressure: 130 mm Hg Body surface area: 2.29 Diastolic Blood Pressure:??46 mm Hg??Low ?? Oxygen Saturation: 94 % ?? Studies Pending All tests and labs ordered during this hospital stay have been completed unless listed below. Please discuss all pending results with your provider listed above in these instructions. ?? Add On Lab Order Basic Metabolic Panel Blood Culture Blood Culture #2 CBC COVID-19 (2019 Novel Coronavirus) PCR INR Lactic Acid Level (Lactate Level) What to do next Instructions From Your Doctor Discharge Orders Wound Care:??Wound Site: Right heel wound Iodoform packing, cover with DSD/kerlix. Elevate heels off bed at all times. every 24 hours ; Left greater trochanter (L hip) Every other day; L posterior iliac crest (L lower sacrum) Every other day; L heel & in between L toes (2/3&3/4) Every thirdday Instructions from your Care Team ?Consultation Note ?? 10/18/2022 15:17??by Hannah Mcgrath RN ?Recommendations: ?? 1.) L heel & in between L toes (2/3&3/4): Gently cleanse wound bed followed by the periwound with VASHE solution moistened gauze. Allow to dry. Apply Iodosorb to wound beds. Cover with DSD. Wrap with kerlix. Change every third day and PRN for soilage/saturation. Separate all toes with DSD. ?? 2.) L posterior iliac crest (L lower sacrum): Gently cleanse wound bed followed by the periwound with VASHE solution moistened gauze. Allow to dry. Apply Triad to periwound/areas of erythema. Cut Aquacel ag to appropriate size for wound bed. Apply Aquacel ag to wound bed. Cover with a Mepilex dressing or DSD/medipore. Change every other day and PRN for soiling/saturation. *If aquacel ag is difficult to remove with dressing changes, please re-consult Inpatient Wound CareTeam. Trauma can occur when removing a dry adhered dressing from a dry wound. ?? 3.) Left greater trochanter (L hip): Gently cleanse wound bed followed by the periwound with VASHE solution moistened gauze. Allow to dry. Apply layer of Triad to wound bed. Cover with Mepilex foam dressing. Change every other day and PRN for soilage/saturation. ?? 4.) Continue use of specialty bed/low air loss mattress 5.) Turn and reposition every 2 hours and PRN 6.) Continue to offload bony prominences 7.) Continue to provide optimal nutritional support; nutrition consult placed 8.) Provide Gaymar cushion to chair when patient OOB ?? You Need to Schedule the Following Appointments Follow Up with??Kendra Padilla MD When??10/22/2022 08:00 AM EDT Why: Call to reschedule appointment if you need to Where: ?? Follow Up with??Leonides Santos MD When??Only if needed Why: VASCULAR SURGERY Where: Follow Up with??Taylor Kennedy MD When?? Why: ID follow up. Expect call with f/u appointment in 3-4 weeks. Where: ?? Follow Up with??Vladimir Keys MD When??Within 1 to 2 weeks Where: ?? Discharge Medications KENDRA KEARNS :1945 Visit Date:10/17/2022 Medications: Please continue your medications until treatment is completed or stopped by your provider. Medications not listed below should be discontinued. Discuss any questions related to medications with your provider. What How Much When Why Instructions Next Dose New Amoxicillin-Clavulanate (amoxicillin-clavulanate 875 mg-125 mg oral tablet) 1 tab(s) Oral Twice a day Duration: 45 Days Pickup at [facility] #[id number] next dose due 10/21 at 10pm Changed Doxycycline (doxycycline hyclate 100 mg oral capsule) 1 capsule Oral Twice a day Duration: 45 Days Pickup at [facility] #[id number] next dose due 10/21 at 7pm Changed Warfarin (warfarin 10 mg oral tablet) See instructions 5mg By Mouth Daily except 7.5mg every ?? next dose due 10/21 at 6pm Unchanged Acetaminophen (acetaminophen 325 mg oral tablet) 2 tab(s) Oral Every 4 hours as needed for as needed for fever / pain take as directed Unchanged Cyanocobalamin (B-12 1000 mcg oral tablet, extended release) 1 tab(s) Oral Daily Anemia next dose due 10/22 at 9am Unchanged Docusate (docusate sodium 150 mg/ 15 ml oral liquid) 10 Milliliter Oral Twice a day as needed for Constipation take as directed Unchanged Gabapentin (gabapentin 100 mg oral capsule) 2 capsule Oral Twice a day Leg pain next dose due 10/21 at 9pm Unchanged Insulin Lispro (insulin lispro 100 units/ mL injectable solution) 2-10 units Subcutaneous Injection 3 times a day before meals << Sliding Scale Comments >> 150 - 199 ?? 2 units Call if less than 70 200 - 249 ?? 4 units 250 - 299 ?? 6 units 300 - 349 ?? 8 units 350 - 399 ?? 10 units Call if greater than 400 << Sliding Scale Comments >> ?? next dose due 10/21 at 5pm, follow sliding scale for dosage of insulin Unchanged Lactulose (lactulose 10 gm/ 15 ml oral syrup) 30 Milliliter Oral Daily as needed for as needed for constipation take as directed Unchanged Melatonin (melatonin 3 mg oral tablet) 3 Milligram Oral Daily at Bedtime as needed for Insomnia take as directed Unchanged Metoprolol (metoprolol 50 mg oral tablet, extended release) 3 tab(s) Oral Daily Chronic atrial fibrillation next dose due 10/22 at 9am Unchanged Miscellaneous Rx (FREESTYLE LITE BLOOD GLUCOSE STRIPS) See instructions CHECK BLOOD SUGAR ONCE A DAY BEFORE BREAKFAST ?? Unchanged Multivitamin With Minerals (Multivit Therapeutic/ Minerals Tablet) 1 tab(s) Oral Daily next dose due 10/22 at 9am Unchanged Pantoprazole (pantoprazole 40 mg oral delayed release tablet) 1 tab(s) Oral Daily next dose due 10/22 at 9am Unchanged Simvastatin (simvastatin 20 mg oral tablet) 1 tab(s) Oral Daily at Bedtime Hyperlipidemia next dose due 10/21 at 9pm Pharmacy Information [facility] #[id number]: [address], [place] [id number] [phone] ?? What How Much When Why Comments Stop Taking Allopurinol (allopurinol 300 mg oral tablet) 1 tab(s) Oral Daily Gout Stop Taking bifidobacterium-lactobacillus (Probiotic Formula) Oral Daily Stop Taking Cholecalciferol (Vitamin D3 1000 intl units oral capsule) 1 capsule Oral Daily Stop Taking Collagenase Topical (Santyl 250 u/ gm ointment) 1 mamta Topically Daily Stop Taking Ferrous Fumarate (ferrous fumarate 324 mg oral tablet) 1 tab(s) Oral Daily Anemia Stop Taking Senna (Senna 8.6 mg oral tablet) 2 tab(s) Oral Daily Test Results Below is a partial list of the most recent Laboratory test results done prior to this discharge. You may have had other tests and procedures not included in this list. Please discuss all test resultswith your provider. CBC w/ Differential (10/18/2022) ???WBC - 7.6 k/mm3???RBC - 2.76 m/mm3???Hgb - 8.3 Gm/dL???Hct - 26.8 %???MCV - 97.1 femtoliters???MCH - 30.1 pg???MCHC - 31.0 g/dL???Platelet Count - 278 k/mm3???RDW-SD - 48.4 femtoliters???MPV - 10.6 femtoliters???Nucleated RBC (Automated) - 0.0 #/100 WBC'S???Abs. NRBC - 0.0 k/mm3???Abs. Neut - 5.8 k/mm3???Abs. Lymph - 0.7 k/mm3???Abs. Richardson - 0.7 k/mm3???Abs. Eo - 0.4 k/mm3???Abs. Baso - 0.0 k/mm3???Neut % - 76.4 %???Lymph % - 8.9 %???Richardson % - 9.1 %???Eos % - 4.6 %???Baso % - 0.5 %???Imm Gran - 0.5 %???Abs. Imm Gran - 0.0 k/mm3 Comprehensive Metabolic Panel (10/18/2022) ???Sodium - 138 mmol/L???Potassium - 4.8 mmol/L???Chloride - 105 mmol/L???Bicarbonate Level - 27 mmol/L???Anion Gap - 6???Glucose Level - 79 mg/dL???BUN - 38 mg/dL???Creatinine-Blood - 1.9 mg/dL???Estimated GFR Creatinine - 35 ML/MIN/1.73 M2???Calcium - 9.9 mg/dL???Protein, Total - 5.1 Gm/dL???Album in - 2.3 Gm/dL???AG Ratio - 0.8???Alkaline Phosphatase - 106 units/L???AST (SGOT) - 13 units/L???ALT (SGPT) - 7 units/L???Bilirubin, Total - 0.5 mg/dL COVID-19 (Novel Coronavirus), Rapid PCR (10/17/2022) ???COVID-19 by RT-PCR - NEGATIVE CRP (10/17/2022) ???C-Reactive Protein - 2.0 mg/dL ESR (10/17/2022) ???Sed Rate - 90 mm/hr GLUCOSE POC (10/21/2022) ???Glucose, POC - 164 mg/dL HOLD BLUE TUBE (10/17/2022) ???Hold Blue Top - SPECIMEN DISCARDED AFTER 4 HOURS. HOLD GREEN TOP X2 (10/17/2022) ???Hold Green Top - SPECIMEN DISCARDED AFTER 1 WEEK???Hold Green Top 2 - SPECIMEN DISCARDED AFTER 1WEEK HOLD GREEN TUBE (10/17/2022) ???Hold Green Top - SPECIMEN DISCARDED AFTER 1 WEEK HOLD LAVENDER TUBE (10/17/2022) ???Hold Lavender Top - SPECIMEN DISCARDED AFTER 24 HOURS. INR (10/21/2022) ???INR - 2.3???Protime (PT) - 22.6 seconds Lactate Level (10/17/2022) ???Lactate - 1.7 mmol/L Magnesium Level (10/18/2022) ???Magnesium - 1.3 mg/dL Phosphorus Level (10/18/2022) ???Phosphorus - 2.5 mg/dL Urinalysis w/hold for Urine Culture (10/19/2022) ???Appear/Color, Urine - YELLOW???Specific [place], Urine - 1.016???pH, Urine - 5.5???Albumin, Urine - TRACE???Glucose, Urine - NEGATIVE???Ketones, Urine - NEGATIVE???Bilirubin, Urine - NEGATIVE???Hemoglobin, Urine - 1+???Nitrite, Urine - POSITIVE???Leukocyte, Urine - 3+???Urobilinogen - NORMAL???WBC's, Urine - >182 /HPF? ?RBC's, Urine - 7 /HPF? ?Bacteria - SLIGHT? ?Squamous Epith - 4 /HPF? ?Mucus - SLIGHT???Hold Urine Culture - Testing available 48 hours from time of collection. Allergies (NKA means No Known Allergies) CefTRIAXone Sodium Problems Active Problems??(25) Anemia?? Aortic stenosis?? Chronic atrial fibrillation?? Chronic total occlusion of coronary artery?? CKD (chronic kidney disease), stage III?? COVID-19?? Deficiency of vitamin B12?? Fatigue?? Gout?? Hyperlipidemia?? Hypersensitivity?? Hypertension?? LBBB (left bundle branch block)?? Leg pain?? Mitral valve stenosis, non-rheumatic?? Obese class I?? Obese class II?? Pancreatic cyst?? Phimosis of penis?? Pressure ulcer of buttock?? Prosthetic valve endocarditis?? S/P TAVR (transcatheter aortic valve replacement)?? Systolic CHF, chronic?? Type 2 diabetes mellitus?? UTI (urinary tract infection)?? Education Materials Below is the list of Educational Leaflet Providered with your Discharge Instructions. Discharge Instructions for Osteomyelitis?? Valuables and Belongings I fully understand and agree that [facility] accepts no responsibility for all my personal property including clothing, toilet articles, radios, jewelry, dentures, hearing aids, rings, money, or any other property that is in my possession or is brought to me after admission. I understand certain valuables may be placed in a hospital safe for a short period of time. I understand that the hospital is not liable for loss or damage due to accident, fire, or other natural occurrence while said property is in the safe. I accept full responsibility for any personal property that I keep with me, and will not hold the hospital responsible in case of loss or disappearance. I acknowledge that i have been encouraged to send valuables and belongings home. ?? No Valuables/Belongings: No valuables/belongings present Review of Valuable and Belonging List: With patient Date for Pt to Sign Valuables/Belongings: 10/21/22 11:06:00 ?? Other Discharge Information ?? Wound Assessment?? Wound Assessment?? Wound Location I: Hip, left Wound I, Present on Admission: Yes Wound Location II: Trochanter, left Wound II, Present on Admission: Yes Wound Location III: Heel, right Wound III, Present on Admission: Yes Wound Location IV: Heel, right Wound IV, Present on Admission: Yes ? Case Management Discharge Plan?? Discharge Plan?? Discharge Agency Information?? Discharge Level of Care at Discharge: Homehealth/VNA Name of Agency #1: [facility] Discharge Transportation Arranged: [facility] [address] [facility] [address] [phone] Name of Agency #1: [facility] Mode of Transportation Arranged: Ambulance Service Categories #1: Correction, Wound Care Discharge Arranged Transport Date/Time: 10/21/22 14:00:00 Service Comments #1: The nurse will call you to arrange visit times, please call agency with questions Discharge VNA/Hospice/Home Care: [facility] [phone] Service Comments #2: The agency will call you to arrange angie delivery, please call agency with questions Discharge Medical Equipment Companies: [employer] ? Pulmonary Rehab Status?? Pulmonary Rehab Discharge Status?? Respiratory Rate: 18 br/min Discharge Medical Equipment bOombate: [employer] ? Common Emergency Awareness Tips IS IT A STROKE? Act FAST and Check for these signs: FACE Does the face look uneven? ARM Does one arm drift down? SPEECH Does their speech sound strange? TIME Call at any sign of stroke ?? Heart Attack Signs Chest discomfort: Most heart attacks involve discomfort in the center of the chest and lasts more than a few minutes, or goes away and comes back. It can feel like uncomfortable pressure, squeezing, fullness or pain. Discomfort in upper body: Symptoms can include pain or discomfort in one or both arms, back, neck, jaw or stomach. Shortness of breath: With or without discomfort. Other signs: Breaking out in a cold sweat, nausea, or lightheaded. Remember, MINUTES DO MATTER. If you experience any of these heart attack warning signs, call to get immediate medical attention! ?? Smoking can increase your chances of developing chronic health problems and can cause harmful effects to other family members in your house. If you smoke, you are strongly encouraged to quit. Please call [facility] at [phone] or [phone] [phone] ([phone] or log in to [email or web address] for referrals to smoking cessation programs. ?? The National Suicide Prevention Hotline is available 03/02 if you or someone you know needs to find a reason to keep living. By calling 6-170-587-[employer] [facility] (3732) you'll be connected to a skilled, trained counselor at a crisis center in your area. INPATIENT DISCHARGE INSTRUCTIONS SIGNATURE PAGE KENDRA KEARNS Location:[facility] Registration Date and Time:10/17/2022 17:23 EDT Primary Care Physician: Vladimir Keys MD, I KENDRA KEARNS, have received the above patient education materials/instructions and have verbalized understanding. If ambulance or transport services are being used I further acknowledge being given a choice of service. ?? If you need to contact me, please call me at this number: . Patient/Carbon Grinder Name: Patient/Carbon Grinder Signature: Relationship to Patient: Witness Name/Signature: Date: * Deanne Layton RN: PERFORM Event Display: Patient Education Leaflets Authored Date: [id number] Discharge Instructions: Caring for Your Wound ?? [id number] Discharge Instructions: Caring for Your Wound Taking proper care of your wound will help it heal. Your healthcare provider or nurse may show you specifically how to clean and dress the wound and how to tell if the wound is healing normally. [employer] will help you remember those guidelines when you are at home. Getting ready ??? Put pets and children in another room, away from your work area. ??? Wash your hands before touching any of your supplies: o Turn on the water. o Wet your hands and wrists. o Use liquid soap from a pump dispenser. Work up a lather. o Scrub your hands thoroughly for at least 20 seconds. o Rinse your hands with your fingers pointing toward the drain. o Dry your hands with a clean cloth or paper towel. Use this towel to turn off the faucet. o Remember, once you have washed your hands, don???t touch anything other than your supplies. Wash your hands again if you touch anything, like furniture or your clothes. ??? Clean your work area: o Clean washable surfaces with soap and brett er, and dry with a clean cloth or paper towel. o Wipe surfaces that are not washable (like fabric or wood) so that they are free of dust.??Spread a clean cloth or paper towel over your work surface. o Move away from the clean surface, if you need to cough or sneeze. ??? Gather your bandage supplies: o Gauze dressing or other bandage material o Medical tape o Disposable gloves ??? Wash your hands again. ?? Dressing the wound ??? Remove the old dressing: o Put on disposable gloves. o Pull gently toward the wound to loosen the tape. o One layer at a time, gently remove the dressing. o If you have a drainor tube, be careful not to pull on it. o Look at the dressing. Make sure that you are seeing a decreasing amount of blood, and that the blood is turning into a clear, robb fluid. o If your wound hasstitches, look for loose??ones. o Put the dressing in a plastic bag. Then remove your gloves. ??? Inspect the wound. Look for signs that it isn't healing normally. A wound that isn???t healing properly may be dark in color or have white streaks. Look for signs of infection. These may include drainage that is yellow, yellow-green, or smelly or increased swelling, pain, warmth or redness in the skin around the wound. ??? Dress the wound: o Wash your hands again. o Put on a new pair of disposable gloves. o Clean and dress the wound as you were shown by your healthcare provider or nurse. o If youhave a drain or tube, be careful not to pull on it. ??? Discard any used materials or trash in a sealed plastic bag before placing in a trash can. ?? Follow-up Make a follow-up appointment, or as directed by your healthcare provider. ?? When to call your healthcare provider Call your healthcare provider right away if you have any of the following: ??? Shaking chills or fever above 100.4??F ( 38??C) ??? Bleeding that soaks the dressing ??? Stitches that are pulling away from the wound or pulling apart ??? [place] fluid weeping from the wound ??? Increased drainage from the wound or drainage that is yellow, yellow-green, or smelly ??? Increased swelling, pain, or rednessin the skin around the wound ??? A change in the color or size??of the wound ??? Increased fatigue ??? Loss of appetite ?? Last Reviewed Date: 2022 ?? [employer]. All rights reserved. This information is not intended as a substitute for professional medical care. Always follow your healthcare professional's instructions. ?? * Calin LOREDO, Deanne Palomino: PERFORM Event Display: Patient Education Leaflets Authored Date: [id number] Nutrition for Wound Healing ?? 17379 Nutrition for Wound Healing If you have any type of new or chronic wound, good nutrition can help your body's overall health tohelp support healing. Nutrients from foods help your body build and repair tissue and heal wounds. Good nutrition can also help you fight infection. During healing, your body may need more calories and protein. And if you have diabetes, it???s very important to control your blood sugar to help yourwound heal. Nutrients you need Nutrition helps give your body the energy it needs to repair tissues and heal wounds. Nutrients youneed from food to keep you healthy include: ??? Protein. Protein can help build tissue and prevent infections. It???s found in meats, fish, eggs, cheese, milk, nuts, and beans. ??? Carbohydrates. These help give your body the energy it needs to heal. Carbohydrates are found in grains, fruits, beans, and other legumes. ??? Fats. Healthy fats help your organs, skin, hair, and brain. They also help your body absorb certain vitamins. ??? Vitamins. These include vitamins C, D, B-6, B-12, folate, andothers. These help your body repair tissues, use energy, and do many other processes. ??? Minerals. These include iron, magnesium, calcium, zinc, and others. These help with many things, such as making sure your cells have enough oxygen, your nervous system works well, and your bones stay strong. ?? Preparing healthy meals When making meals each day, follow the guidelines from [employer]. Your basic daily diet should include: ??? Fruits and vegetables. Fruits may be fresh, canned, frozen, or dried, and may be whole, cut up,or pur??ed. Vegetables may be fresh, frozen, canned, or dried. Make half your plate fruits and vegetables. ??? Grains. All foods made from grains are part of the grains group. These include wheat, rice, oats, cornmeal, and barley. You can find grains in foods such as bread, pasta, oatmeal, cereal, tortillas, and grits. Grains should be no more than a quarter of your plate. Aim to make whole grains at least half of your daily grain intake. ??? Protein. This group includes meat, poultry, seafood,beans and peas, eggs, processed soy products such as tofu, nuts, including nut butters, and seeds. ??? Dairy. All fluid milk products and foods made from milk that contain calcium such as yogurt and cheese are part of the dairy group. ??? Oils. These are fats that are liquid at room temperature. Oils are not a food group, but they provide important nutrients your body needs. They include canola, corn, olive, soybean, and sunflower oil. Some foods are naturally high in healthy oils, such as nuts, avocados, olives, and some fish. Foods that are mainly oil include mayonnaise, certain salad dressings, and soft (tub) margarines. ?? Getting enough protein Protein helps your body build and repair tissues. Protein also helps your immune system work well. This helps protect wounds from infection and let them heal. Infection can delay healing. To get enough protein while you???re healing, you can: ??? Add protein to every meal. This includes turkey, chicken, beef, pork, krishnan, fish, shellfish, eggs, and cheese. Protein is also found in foods such as nuts, nut butters, beans and other legumes, seeds, and tofu. You can also get protein from animal milkand soy milk. ??? Have protein supplements between meals. There are many kinds of protein drinks and other protein supplements. These have protein from whey, soy, and other sources. If you have trouble digesting lactose or soy, ask your healthcare provider which type of protein supplement may be best for you. ?? Adding vitamin C Research has shown that vitamin C can help with tissue health and repair. Add vitamin C to your diet while your wound is healing. You can get vitamin C in your diet by eating or drinking juice from citrus fruits such as oranges, clementines, grapefruits, cristel, and limes. Other food sources of vitamin C include tomatoes, potatoes, strawberries, green and red alfredo peppers, broccoli, [place] sprouts, and kiwifruit. You can also get vitamin C in supplement form via tablets, chewables, and other types of supplements. ?? Adding zinc Zinc helps your body's immune system and helps make protein to heal wounds. To add zinc to your diet, choose whole grains and eat protein, such as eggs, meat, dairy, or seafood. Zinc is better absorbed from animal sources such as beef and seafood. Good vegetarian sources include wheat germ, beans, nuts, and tofu. ?? Controlling your blood sugar If you have diabetes and you have wounds, it???s important to control your blood sugar. High blood sugar can slow wound healing and make it easier for wounds to get infected. Take good care to manageyour diet, take your diabetes medicine, and measure your blood sugar as directed. Tell your healthcare provider if your blood sugar is not under control. They can help you get it back on track. ?? Last Reviewed Date: 2022 ?? [id number] [employer]. All rights reserved. This information is not intended as a substitute for professional medical care. Always follow your healthcare professional's instructions. ?? * Calin LOREDO, Deanne Palomino: PERFORM Event Display: Patient Education Leaflets Authored Date: [id number] Wound Care ?? 25876 Wound Care Taking good care of your wound will help it heal. Your??healthcare??provider may show you how to clean and dress the wound. They will also explain how to tell if the wound is healing normally.??If you are unsure of how to take care of the wound, ask what dressing to use and how often you should change the bandages.??Below are the basic steps. Wash your hands Tips for washing your hands: ??? Use liquid soap and lather. Scrub for 20 seconds between your fingers and under your nails. ??? Rinse with clean, running water, keeping your fingers pointed down. ??? Use a paper towel to dry your hands and to turn off the faucet. ?? Remove the used dressing Here are suggestions for removing the dressing: ??? If dressing changes cause you pain, take your pain medicine as prescribed by your healthcare provider 30 minutes??before??dressing changes. ??? Setup your supplies. ??? Put on disposable gloves if you???re dressing a wound for someone else or your wound is infected. ??? Loosen the tape by pulling gently toward the wound. ??? Gently take off theold dressing. If the dressing is stuck to the wound, moisten it with saline (if available) or cleanwater. ??? If you have a drain or tube in the wound, be careful not to pull on it. ??? Remove the dressing 1 layer at a time and put it in a plastic bag. Seal the bag and put it in the trash. ??? Remove your gloves. ?? Inspect and dress the wound Check the wound carefully: ??? Each time you change the dressing, check the wound carefully to be sure it???s healing normally. Check that your wound appears to be pink and moist and that it's free of infection. ? Wash your hands again. Put on a new pair of gloves. ??? Clean and dress the wound as directed by your??healthcare provider??or nurse.??Don't put anything in the wound that is not prescribed or directed by your healthcare provider.??If you have a drain or tube, be careful not to pull on it.??Secure the drain or tube as well. ??? Put all unused supplies in a clean plastic bag. Seal the bag and store it in a clean, dry area between dressing changes.? Wash your hands again. ?? Call your healthcare provider Call your healthcare provider if you see any of the following signs of a problem: ??? Bleeding thatsoaks the dressing ??? [place] fluid weeping from the wound ??? Increased drainage or drainage that iswhite, yellow, yellow-green, or foul-smelling ??? Increased swelling or pain, or redness or swelling in the skin around the wound ??? A change in the color of the wound, or if streaks develop in a direction away from the wound ??? The area between any stitches opens up ??? An increase in the size of the wound ??? A fever of 100.4??F (38??C) or higher, or as directed by your healthcare provider ??? Chills, increased fatigue, or a loss of appetite ?? Last Reviewed Date: 2022 ?? [id number] [employer]. All rights reserved. This information is not intended as a substitute for professional medical care. Always follow your healthcare professional's instructions. ?? XR Foot - right GE 3 Views * [facility] , CIS S: TRANSCRIBE Paul Lindo MD: VERIFY Event Display: Result: Authored Date: [id number] Foot Min 3 Views Right CLINICAL INDICATION: Hx of Present Illness: pt presents to ed via ems, coming from home where pt's vna was concerned about wound to left heel worsening becoming warm and draining pus. pt is bedbound also has wound to left hip. pt is a ox4.; Reason: Infection; new R heel ulcer, ?osteo; Clinical Question(s): Osteomyelitis COMPARISONS: X-ray 08/15/2021 TECHNIQUE: AP, lateral and oblique views of the right foot were obtained. FINDINGS: There is diffuse soft tissue swelling throughout the plantar aspect of the foot most pronounced at the heel which is increased from the prior study. No erosive changes of the adjacent calcaneus. No x-ray evidence for osteomyelitis. There is chronic moderate to severe tarsometatarsal joint space narrowing again noted. There is also severe first MTP joint space narrowing which is not significantly changed. 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 There is no fracture or dislocation. The Lisfranc joint space is normally aligned. No retained foreign body. Hindfoot midfoot alignment is normal. IMPRESSION: Diffuse skin thickening and soft tissue swelling along the plantar aspect of the foot consistent with cellulitis. Ulceration along the plantar aspect of the heel. No erosive changes bone or other x-ray evidence for osteomyelitis. Sensitivity of x-ray for early osteomyelitis is limited. Arthritic changes throughout the foot, not significantly changed. WSN: [id number] Ordering Physician: Raúl Landeros Dictated By: Paul Lindo MD Dictated Date/Time: 10/17/22 2:05 pm Reviewed By: Paul Lindo MD Signed By: Paul Lindo MD Signed Date/Time: 10/17/22 2:05 pm Transcribed By: MARIYA Transcribed Date/Time: 10/17/22 1:59 pm Patient Care team information Care Team Personnel Name: Kaitlyn De La Paz RN Position: [facility] RN Member Role: Primary Care Nurse Name: Purnima Esposito RN Position: [facility] RN Member Role: Primary Care Nurse Name: Tran Ireland RN Position: [facility] RN Member Role: Primary Care Nurse Name: Rebeka Dunbar RN Position: [facility] RN Member Role: Primary Care Nurse Name: Mary Beth Argueta RN Position: [facility] SN RN Member Role: Primary Care Nurse Name: Rosalinda Espinoza RN Position: [facility] RN Member Role: Primary Care Nurse Name: Carla Reid RN Position: [facility] SN RN Member Role: Primary Care Nurse Name: Natalee Farrell RN Position: [facility] RN Member Role: Primary Care Nurse Name: Jasmeet Del Castillo RN Position: [facility] RN Member Role: Primary Care Nurse Name: Ruby Rojas RN Position: [facility] RN Member Role: Primary Care Nurse Name: Harleen Clark RN Position: [facility] RN Member Role: Primary Care Nurse Name: Roger Romero RN Position: [facility] RN Member Role: Primary Care Nurse Name: Manasa Weinstein RN Position: [facility] RN Member Role: Primary Care Nurse Name: Tessa Hines RN Position: [facility] RN Member Role: Primary Care Nurse Name: Reina Romeo RN Position: [facility] RN Member Role: Primary Care Nurse Name: Mark Ruffin Position: [facility] RN Member Role: Primary Care Nurse Name: Albertina Acevedo RN Position: [facility] RN Member Role: Primary Care Nurse Name: Diana Patton RN Position: [facility] RN Member Role: Primary Care Nurse Name: Imelda Brand RN Position: [facility] RN Member Role: Primary Care Nurse Name: Joao Downs RN Position: [facility] RN Member Role: Primary Care Nurse Name: Mitzy Moar Position: [facility] RN Member Role: Primary Care Nurse Name: Ward Alcantar RN Position: [facility] RN Member Role: Primary Care Nurse Name: Karla Holder RN Position: [facility] RN Member Role: Primary Care Nurse Name: Eric Aceves III, RN Position: [facility] RN Member Role: Primary Care Nurse Name: Danay Galindo RN Position: [facility] RN Member Role: Primary Care Nurse Name: Ara De Santiago RN Position: [facility] Onco RN Member Role: Primary Care Nurse Name: Jacky Love Position: [facility] Associate Professional Member Role: [employer]etime Consulting Provider Address: Address: [address] [place] [address]- Name: Micki Quezada RN Position: [facility] RN Member Role: Primary Care Nurse Name: Fatmata Alvarez RN Position: [facility] RN Member Role: Primary Care Nurse Name: Ila Hamm RN Position: [facility] RN Member Role: Primary Care Nurse Name: Owen Kuhn MD Position: [facility] Renal MD Member Role: Lifetime Consulting Physician Address: Address: [address] [place] [address] [address] [facility] [place] [address]- Name: Sharon Christopher RN Position: [facility] RN Member Role: Primary Care Nurse Name: Praveena Raymond RN Position: [facility] RN Member Role: Primary Care Nurse Name: Marcella Nichols RN Position: [facility] RN Member Role: Primary Care Nurse Name: Margaret Hurtado RN Position: [facility] RN Member Role: Primary Care Nurse Name: Noe Doyle MD Position: [facility] Renal MD Member Role: Lifetime Consulting Physician Address: Address: [address] [place] [address] [facility] [place] [address]- Name: Li Lu LPN Position: [facility] RN Member Role: Primary Care Nurse Name: Tete Rodríguez RN Position: [facility] RN Member Role: Primary Care Nurse Name: Hannah Mcintyre RN Position: [facility] RN Member Role: Primary Care Nurse Name: Tatiana Mueller RN Position: [facility] RN Member Role: Primary Care Nurse Name: Margarita Franco RN Position: [facility] RN Member Role: Primary Care Nurse Name: Cherry Nguyen RN Position: [facility] RN Member Role: Primary Care Nurse Name: Vladimir Keys MD Position: [facility] Primary Care Physician Member Role: PCP Address: Address: [address] [place] [address], [address] [place] [address]- [place] Name: Remedios Ramírez RN Position: [facility] RN Member Role: Primary Care Nurse Name: Ashlee Sanders RN Position: [facility] RN Member Role: Primary Care Nurse Name: Theresa Geiger RN Position: [facility] RN Member Role: Primary Care Nurse Name: Danay Banegas RN Position: [facility] RN Member Role: Primary Care Nurse Name: Talat Saldivar RN Position: [facility] RN Member Role: Primary Care Nurse Name: Andry RNDen Position: [facility] SN RN Member Role: Primary Care Nurse Name: Rosalino Hernadez RN Position: [facility] RN Member Role: Primary Care Nurse Name: Noemí Ny RN, I Position: [facility] RN Member Role: Primary Care Nurse Name: Chloe Prado RN Position: [facility] RN Member Role: Primary Care Nurse Name: Bryson CROOKS Attending Position: [facility] ED Medicine MD Name: Rosalino Espino RN Position: [facility] ED RN W/OE and Tasks Member Role: Patient Care Provider Name: Carla Valentine Position: [facility] ED TA [facility] Member Role: [employer] Bonding Machine Tender Name: Chet Harris DO Position: [facility] Resident Member Role: ED Resident Address: Address: [address] [place] [address] [place] [address]- Care Team Related Persons Name: DESMOND MCDUFFIE Address: home [address] [place] [address]
--- OUTSIDE RECORDS SUMMARY | 2024-01-20 06:13 | XMS_ITS | Continuity of Care Document ---
Author Organization [facility] Address [address] [place] [address]- Care Team Providers Care Jet Inspector Name Role Phone Vladimir Keys MD Primary Care Physician [phone] Encounter [facility] Date(s): 05/01/22 - 06/28/22 [facility] [address] [place] [address]- Attending Physician: Vladimir Keys MD Admitting Physician: Vladimir Keys MD Referring Physician: Leonides Santos MD Allergies, Adverse Reactions, Alerts Substance Reaction [...] 12/13/21 13:59:00 EDT, Route to Pharmacy Electronically, [id number], 180, cm, 12/13/21 12:56:00 EDT, Height, 136.6, kg, 09/08/21 16:31:00 EST, Dry... Start Date: 12/13/21 Status: Ordered B-12 1000 mcg oral tablet, extended release 1 tablet = 1,000 mcg, By Mouth, Daily, # 90 tablet, 1 Refills, Maintenance, 01/24/22 16:36:00 EDT, [facility] #[id number], 180, cm, 01/24/22 16:01:00 EDT, Height, 136.6, [...] 0 Refills, Maintenance, 12/13/21 14:03:00 EDT, Tablet, [facility] #[id number], 180, cm, 12/13/21 12:56:00 EDT, Height, 136.6, kg, 09/08/21 16:31:00 EST, Dry Weight Start Date: 12/13/21 Status: Ordered gabapentin 100 mg oral capsule 100 mg, 1, capsule, By Mouth, 2 times a day, # 60 capsule, Refills 2, Tot. Refills 2, Maintenance, 01/24/22 16:33:00 EDT, [facility][id number], 180, cm, 01/24/22 16:01:00 EDT, Height, 136.6, [...] 12:04:00 EDT, Route to Pharmacy Electronically, [id number], 180, cm, 09/22/21 20:27:00 EST, Height, 136.6, kg, 09/08/21 16:31:00 ESTDr... Start Date: 11/27/21 Status: Ordered Multivit Therapeutic/Minerals [...] 12/14/21 1:07:00 EDT, [id number], 180, cm, 12/13/21 12:56:00 EDT, Height, 136.6, [...] Safety Implantable Status Assigning Authority Unknown Unknown [id number] Unknown 12/26/26 Unknown Unknown Active Unknown Patient Care team information Care Team Personnel Name: Kaitlyn De La Paz RN Position: [facility] RN Member Role: Primary Care Nurse Name: Purnima Esposito RN Position: [facility] RN Member Role: Primary Care Nurse Name: Tran Ireland RN Position: [facility] RN Member Role: Primary Care Nurse Name: Rebeka Dunbar RN Position: [facility] RN Member Role: Primary Care Nurse Name: Mary Beth Argueta RN Position: [facility] RN Member Role: Primary Care Nurse Name: Rosalinda Espinoza RN Position: [facility] RN Member Role: Primary Care Nurse Name: Natalee Farrell RN Position: [facility] RN Member Role: Primary Care Nurse Name: Liz Melara RN Position: [facility] RN Member Role: Primary Care Nurse Name: Vanesa Jo RN Position: [facility] RN Member Role: Primary Care Nurse Name: Jasmeet Del Castillo RN Position: [facility] RN Member Role: Primary Care Nurse Name: Ruby Rojas RN Position: S RN Member Role: Primary Care Nurse Name: Harleen Clark RN Position: [facility] RN Member Role: Primary Care Nurse Name: Roger Romero RN Position: [facility] RN Member Role: Primary Care Nurse Name: Manasa Weinstein RN Position: [facility] RN Member Role: Primary Care Nurse Name: Reina Romeo RN Position: [facility] RN Member Role: Primary Care Nurse Name: Mark Ruffin Position: [facility] RN Member Role: Primary Care Nurse Name: Albertina Acevedo RN Position: [facility] RN Member Role: Primary Care Nurse Name: Diana Patton RN Position: [facility] RN Member Role: Primary Care Nurse Name: Imelda Brand RN Position: [facility] RN Member Role: Primary Care Nurse Name: Joao Downs RN Position: [facility] RN Member Role: Primary Care Nurse Name: Mitzy Mora Position: [facility] RN Member Role: Primary Care Nurse Name: Ward Alcantar RN Position: [facility] RN Member Role: Primary Care Nurse Name: Karla Holder RN Position: [facility] RN Member Role: Primary Care Nurse Name: Eric Aceves III, RN Position: [facility] RN Member Role: Primary Care Nurse Name: Danay Galindo RN Position: [facility] RN Member Role: Primary Care Nurse Name: Ara De Santiago RN Position: [facility] Onco RN Member Role: Primary Care Nurse Name: Li De Santiago RN Position: [facility] RN Member Role: Primary Care Nurse Name: Jacky Love Position: [facility] Associate Professional Member Role: Lifetime Consulting Provider Address: Address: [address] [place] [address] Name: Micki Quezada RN Position: [facility] RN Member Role: Primary Care Nurse Name: Fatmata Alvarez RN Position: [facility] RN Member Role: Primary Care Nurse Name: Ila Hamm RN Position: [facility] RN Member Role: Primary Care Nurse Name: Rocio Bird RN Position: [facility] RN Member Role: Primary Care Nurse Name: Owen Kuhn MD Position: [facility] Renal MD Member Role: Lifetime Consulting Physician Address: Address: [address] [place] [address] [address] [facility] [place], [address] Name: Sharon Christopher RN Position: [facility] RN Member Role: Primary Care Nurse Name: Praveena Raymond RN Position: [facility] RN Member Role: Primary Care Nurse Name: Carla Pickett RN Position: S RN Member Role: Primary Care Nurse Name: Marcella Nichols RN Position: [facility] RN Member Role: Primary Care Nurse Name: Margaret Hurtado RN Position: S RN Member Role: Primary Care Nurse Name: Everett Marcelo RN Position: [facility] RN Member Role: Primary Care Nurse Name: Noe Doyle MD Position: [facility] Renal MD Member Role: Lifetime Consulting Physician Address: Address: [address] [place] [address] [facility] [place] [address]- Name: Li Lu LPN Position: [facility] RN Member Role: Primary Care Nurse Name: Odalis Herrera Position: [facility] RN Member Role: Primary Care Nurse Name: Tete Rodríguez RN Position: [facility] RN Member Role: Primary Care Nurse Name: Hannah Mcintyre RN Position: [facility] RN Member Role: Primary Care Nurse Name: Margarita Franco RN Position: [facility] RN Member Role: Primary Care Nurse Name: Cherry Nguyen RN Position: [facility] RN Member Role: Primary Care Nurse Name: Theresa Robison RN Position: [facility] RN Member Role: Primary Care Nurse Name: Vladimir Keys MD Position: [facility] Primary Care Physician Member Role: PCP Address: Address: [address] [place] [address], [address] [place] [address]- Name: Remedios Ramírez RN Position: [facility] RN Member Role: Primary Care Nurse Name: Ashlee Sanders RN Position: [facility] RN Member Role: Primary Care Nurse Name: Theresa Geiger RN Position: [facility] RN Member Role: Primary Care Nurse Name: Danay Banegas RN Position: [facility] RN Member Role: Primary Care Nurse Name: Talat Saldivar RN Position: [facility] RN Member Role: Primary Care Nurse Name: Den Wilde RN Position: [facility] SN RN Member Role: Primary Care Nurse Name: Rosalino Hernadez RN Position: [facility] RN Member Role: Primary Care Nurse Name: Chloe Prado Position: S RN Member Role: Primary Care Nurse Care Team Related Persons Name: DESMOND MCDUFFIE Address: home [address] [place] [address]
--- OUTSIDE RECORDS SUMMARY | 2024-01-20 06:14 | XMS_ITS | Continuity of Care Document ---
Author Organization [facility] Address [address] [place] [address]- Care Team Providers Care Music Intern Name Role Phone Vladiimr Keys MD Primary Care Physician Encounter [facility] Date(s): 02/15/21 - 03/21/21 [facility] [address] [place] [address]- Attending Physician: Jason PARISH, aGil Akins Admitting Physician: Jason PARISH, Gail Akins Referring Physician: Jason PARISH, Gail Akins Allergies, Adverse Reactions, Alerts Substance Reaction Severity [...] Mouth, Daily, # 90 tablet, 0 Refills, [facility][id number], 174, cm, 01/19/21 13:26:00 EDT, Height, 127.5, [...] tablet, Refills 0, Route to Pharmacy Electronically, [facility] #[id number], 174, cm, 01/19/21 13:26:00 EDT, Height, 127.5, kg, 11/30/20 1:55:00 EDT, Dry Weight Start Date: 03/06/21 Status: Ordered Metoprolol Tartrate 50 mg oral tablet 1.5 tablet, By Mouth, 2 times a day, # 270 tablet, 0 Refills, [facility] #[id number], 174, cm, 01/19/21 13:26:00 EDT, Height, 127.5, kg, 11/30/20 1:55:00 EDT, Dry Weight Start Date: 03/06/21 Status: Ordered Multi Vitamin+ 0 Refills, Maintenance, 05/29/18 21:44:42 EST Start Date: 05/29/18 Status: Ordered pantoprazole 40 mg oral delayed release tablet 1 tablet, By Mouth, Daily, STOP OMEPRAZOLE, # 90 tablet, 0 Refills, 174, cm, 01/19/21 13:26:00 EDT,Height, 127.5, kg, 11/30/20 1:55:00 EDT, Dry Weight Start Date: 03/07/21 Status: Ordered ProAir HFA 90 mcg/inh inhalation aerosol with adapter 1, puffs, Inhalation, Every 4 hours, PRN, # 8.5 Gm, Refills 2, Tot. Refills 2, Maintenance, 06/22/19 17:18:00 EST, Aerosol, Route to Pharmacy Electronically, [id number], [facility] #[id number], 178, cm, 06/22/19 15:40:03 EST, Height, 140.5,... Start Date: 06/22/19 Status: Ordered Silvasorb silver wound gel Silvasorb silver wound gel, See Instructions, # 1 each, Refills 5, Tot. Refills 5, Maintenance, useon right great and 2nd toes daily, 02/15/21 11:02:00 EDT, Supply Start Date: 02/15/21 Status: Ordered simvastatin 20 mg oral tablet 1, tablet, By Mouth, Daily at bedtime, # 90 tablet, Refills 1, Route to Pharmacy Electronically, [facility] #[id number], 174, cm, 01/19/21 13:26:00 EDT, Height, 127.5, kg, 11/30/20 1:55:00 EDT, Dry Weight Start Date: 03/06/21 Status: Ordered torsemide 20 mg oral tablet 1 tablet, By Mouth, 2 times a day, # 180 tablet, 0 Refills, Maintenance, 11/17/20 12:34:00 EDT, [facility] #[id number], 172, cm, 05/14/20 1:37:00 EST, Height, 127, kg, 05/14/20 1:37:00 EST, Dry Weight Start Date: 11/17/20 Status: Ordered Vitamin D3 = 1,000 International_Units, By Mouth, 0 Refills, Maintenance, 05/29/18 21:44:17 EST Start Date: 05/29/18 Status: Ordered warfarin 5 mg oral tablet 2 tablet, By Mouth, Daily, # 60 tablet, 0 Refills, [facility] #[id number], 174, cm, 01/19/21 13:26:00 EDT, Height, 127.5, [...]
--- OUTSIDE RECORDS SUMMARY | 2024-01-20 06:14 | XMS_ITS | Continuity of Care Document ---
Author Organization [facility] Address [address] [place] [address]- Care Team Providers Care Medical Billing And Coding Instructor Name Role Phone Vladimir Keys MD Primary Care Physician Encounter [facility] Date(s): 02/19/21 - 03/21/21 [facility] [address] [place], [place] [address] Attending Physician: Admela, Tanmay Admitting Physician: AdmtrTanmay Referring Physician: Admtr, Ar8 Allergies, Adverse Reactions, Alerts Substance Reaction Severity [...] Mouth, Daily, # 90 tablet, 0 Refills, [facility] #[id number], 174, cm, 01/19/21 13:26:00 EDT, Height, 127.5, [...] tablet, Refills 0, Route to Pharmacy Electronically, [facility][id number], 174, cm, 01/19/21 13:26:00 EDT, Height, 127.5, kg, 11/30/20 1:55:00 EDT, Dry Weight Start Date: 03/06/21 Status: Ordered Metoprolol Tartrate 50 mg oral tablet 1.5 tablet, By Mouth, 2 times a day, # 270 tablet, 0 Refills, [facility] #[id number], 174, cm, 01/19/21 13:26:00 EDT, Height, 127.5, [...] 17:18:00 EST, Aerosol, Route to Pharmacy Electronically, [facility][id number], [facility] #[id number], 178, cm, 06/22/19 15:40:03 EST, Height, 140.5,... [...] tablet, Refills 1, Route to Pharmacy Electronically, [facility] #[id number], 174, cm, 01/19/21 13:26:00 EDT, Height, 127.5, kg, 11/30/20 1:55:00 EDT, Dry Weight Start Date: 03/06/21 Status: Ordered torsemide 20 mg oral tablet 1 tablet, By Mouth, 2 times a day, # 180 tablet, 0 Refills, Maintenance, 11/17/20 12:34:00 EDT, [facility] #[id number], 172, cm, 05/14/20 1:37:00 EST, Height, 127, kg, 05/14/20 1:37:00 EST, Dry Weight Start Date: 11/17/20 Status: Ordered Vitamin D3 = 1,000 International_Units, By Mouth, 0 Refills, Maintenance, 05/29/18 21:44:17 EST Start Date: 05/29/18 Status: Ordered warfarin 5 mg oral tablet 2 tablet, By Mouth, Daily, # 60 tablet, 0 Refills, [facility] #[id number], 174, cm, 01/19/21 13:26:00 EDT, Height, 127.5, [...]
--- OUTSIDE RECORDS SUMMARY | 2024-01-20 06:14 | XMS_ITS | Continuity of Care Document ---
Author Organization [facility] Address [address] [place] [address]- Care Team Providers Care Media Operator Name Role Phone Vladimir Keys MD Primary Care Physician Encounter [facility] R [id number] Date(s): 11/26/22 - 12/26/22 [facility] [address] [place] [address] Attending Physician: Tanmay Lin Admitting Physician: AdmTanmay mahmood Referring Physician: AdmtrTanmay Allergies, Adverse Reactions, Alerts Substance Reaction Severity [...] opioid drug. Start Date: 04/06/22 Status: Ordered B-12 1000 mcg oral tablet, extended release 1 tablet = 1,000 mcg, By Mouth, Daily, # 90 tablet, 1 Refills, Maintenance, 07/23/22 16:50:00 EST, [facility] #[id number], 182.88, cm, 05/09/22 12:50:00 EDT, Height, 125.1, [...] 1 Refills, Maintenance, 10/21/22 10:07:00 EDT, Capsule, [facility] #[id number], 177.8, cm, 10/21/22 7:55:00 EDT, Height, 106.6, [...] times a day, # 120 capsule, Refills 0, Maintenance, 12/20/22 11:55:00 EDT, Route to Pharmacy Electronically, [facility] #[id number], 177.8, cm, 10/21/22 11:06:00 EDT, Height, 106.6, kg, 10/18/22 3:46:00 EDT, Dry Weight Start Date: 12/20/22 Status: Ordered insulin lispro 100 units/mL injectable [...] 07/23/22 16:50:00 EST, Route to Pharmacy Electronically, [facility] #[id number], 182.88, cm, 05/09/22 12:50:00 EDT, Height, 125.1, kg, 04/23/22 14:36:00 EDT,... Start Date: 07/23/22 Status: Ordered Multivit Therapeutic/Minerals Tablet 1 tablet, [...] at bedtime, # 90 tablet, Refills 1, Maintenance, 12/19/22 16:20:00 EDT, Route to Pharmacy Electronically, [facility] #[id number], 177.8, cm, 10/21/22 11:06:00 EDT, Height, 106.6, kg, 10/18/22 3:46:00 EDT, Dry Weight Start Date: 12/19/22 Status: Ordered warfarin 5 mg oral tablet See Instructions, TAKE 1.5 TABLETS(7.5MG) BY MOUTH EVERY DAY ALTERNATE WITH 2 TABLETS(10MG) EVERY OTHER DAY, # 150 tablet, 0 Refills, Maintenance, 12/20/22 11:55:00 EDT, [facility] #[id number], 177.8, cm, 10/21/22 11:06:00 EDT, Height, 106.6, kg,... Start Date: 12/20/22 Status: Ordered Problem List Condition Confirmation Course [...] Confirmed Active Obese class II Confirmed Active Osteomyelitis of foot Confirmed Active [...] Safety Implantable Status Assigning Authority Unknown Unknown [id number] Unknown 12/26/26 Unknown Unknown Active Unknown Patient Care team information Care Team Personnel Name: Kaitlyn De La Paz RN Position: [facility] RN Member Role: Primary Care Nurse Name: Purnima Esposito RN Position: [facility] RN Member Role: Primary Care Nurse Name: Tran Ireland RN Position: [facility] RN Member Role: Primary Care Nurse Name: Rebeka Dunbar RN Position: [facility] RN Member Role: Primary Care Nurse Name: Mary Beth Argueta RN Position: [facility] SN RN Member Role: Primary Care Nurse Name: Rosalinda Espinoza RN Position: [facility] RN Member Role: Primary Care Nurse Name: Carla Reid RN Position: [facility] SN RN Member Role: Primary Care Nurse Name: Natalee Farrell RN Position: [facility] RN Member Role: Primary Care Nurse Name: Jasmeet Del Castillo RN Position: [facility] RN Member Role: Primary Care Nurse Name: Ruby Rojas RN Position: [facility] RN Member Role: Primary Care Nurse Name: Harleen Clark RN Position: [facility] AMB Nurse Member Role: Primary Care Nurse Name: Roger Romero RN Position: [facility] RN Member Role: Primary Care Nurse Name: Manasa Weinstein RN Position: [facility] RN Member Role: Primary Care Nurse Name: Tessa Hines RN Position: [facility] RN Member Role: Primary Care Nurse Name: Reina Romeo RN Position: [facility] RN Member Role: Primary Care Nurse Name: Mark Ruffin Position: [facility] RN Member Role: Primary Care Nurse Name: Diana Patton RN Position: [facility] RN Member Role: Primary Care Nurse Name: Imelda Brand RN Position: [facility] RN Member Role: Primary Care Nurse Name: Joao Downs RN Position: [facility] RN Member Role: Primary Care Nurse Name: Mitzy Mora Position: [facility] RN Member Role: Primary Care Nurse Name: Ward Alcantar RN Position: [facility] RN Member Role: Primary Care Nurse Name: Karla Holder RN Position: [facility] RN Member Role: Primary Care Nurse Name: Eric Aceves III, RN Position: [facility] RN Member Role: Primary Care Nurse Name: Danay Galindo RN Position: [facility] RN Member Role: Primary Care Nurse Name: Ara De Santiago RN Position: [facility] Onco RN Member Role: Primary Care Nurse Name: Jacky Love Position: [facility] Associate Professional Member Role: Lifetime Consulting Provider Address: Address: [address] [place] [address]- Name: Micki Quezada RN Position: [facility] RN Member Role: Primary Care Nurse Name: Fatmata Alvarez RN Position: [facility] RN Member Role: Primary Care Nurse Name: Ila Hamm RN Position: [facility] RN Member Role: Primary Care Nurse Name: Owen Kuhn MD Position: [facility] Renal MD Member Role: Lifetime Consulting Physician Address: Address: [address] [place] [address] [address] [facility] [place] [address]- Name: Sharon Christopher RN Position: [facility] RN Member Role: Primary Care Nurse Name: Praveena Raymond RN Position: [facility] RN Member Role: Primary Care Nurse Name: Marcella Nichols RN Position: [facility] RN Member Role: Primary Care Nurse Name: Margaret Hurtado RN Position: [facility] SN RN Member Role: Primary Care Nurse Name: Noe Doyle MD Position: [facility] Renal MD Member Role: Lifetime Consulting Physician Address: Address: [address] [place] [address] [facility] [place] [address]- Name: Li Lu LPN Position: [facility] RN Member Role: Primary Care Nurse Name: Tete Rodríguez RN Position: [facility] RN Member Role: Primary Care Nurse Name: Hannah Mcintyre RN Position: [facility] RN Member Role: Primary Care Nurse Name: Tatiana Mueller RN Position: [facility] RN Member Role: Primary Care Nurse Name: Margarita Franco RN Position: [facility] RN Member Role: Primary Care Nurse Name: Nicole Pradhan RN Position: [facility] RN Member Role: Primary Care Nurse Name: Cherry Nguyen RN Position: [facility] RN Member Role: Primary Care Nurse Name: Vladimir Keys MD Position: [facility] Physician - Primary Care Member Role: PCP Address: Address: [address] [place] [address], [address] [place] [address]- [place] Name: Remedios Ramírez RN Position: [facility] RN Member Role: Primary Care Nurse Name: Ashlee Sanders RN Position: [facility] RN Member Role: Primary Care Nurse Name: Theresa Geiger RN Position: [facility] RN Member Role: Primary Care Nurse Name: Talat Saldivar RN Position: [facility] RN Member Role: Primary Care Nurse Name: Den Wilde RN Position: [facility] SN RN Member Role: Primary Care Nurse Name: Rosalino Hernadez RN Position: [facility] RN Member Role: Primary Care Nurse Name: Noemí Ny RN, I Position: [facility] RN Member Role: Primary Care Nurse Name: Chloe Prado RN Position: [facility] RN Member Role: Primary Care Nurse Care Team Related Persons Name: DESMOND MCDUFFIE Address: home [address] [place] [address]
--- OUTSIDE RECORDS SUMMARY | 2024-01-20 06:14 | XMS_ITS | Continuity of Care Document ---
Author Organization [facility] Address [address] [place] [id number]- Care Team Providers Care Marketing Professor Name Role Phone Vladimir Keys MD Primary Care Physician [phone] [place] [facility] [place]): [place] 06/20/22 [facility] [address] [place] [id number] Attending Physician: Terell Multani MD Admitting Physician: Terell Multani MD Referring Physician: Vladimir Keys MD Allergies, [...] EDT, Route to Pharmacy Electronically, [id number], 180, cm, 12/13/21 12:56:00 EDT, Height, 136.6, kg, 09/08/21 16:31:00 EST, Dry... Start Date: 12/13/21 Status: Ordered B-12 1000 mcg oral tablet, extended release 1 tablet = 1,000 mcg, By Mouth, Daily, # 90 tablet, 1 Refills, Maintenance, 01/24/22 16:36:00 EDT, [facility] #[id number], 180, cm, 01/24/22 16:01:00 EDT, Height, 136.6, [...] Maintenance, 12/13/21 14:03:00 EDT, Tablet, [facility] #[id number], 180, cm, 12/13/21 12:56:00 EDT, Height, 136.6, kg, 09/08/21 16:31:00 EST, Dry Weight Start Date: 12/13/21 Status: Ordered gabapentin 100 mg oral capsule 100 mg, 1, capsule, By Mouth, 2 times a day, # 60 capsule, Refills 2, Tot. Refills 2, Maintenance, 01/24/22 16:33:00 EDT, [id number], 180, cm, 01/24/22 16:01:00 EDT, Height, 136.6, [...] 12:04:00 EDT, [id number], 180, cm, 09/22/21 20:27:00 EST, Height, 136.6, [...] 12/14/21 1:07:00 EDT, Route to Pharmacy Electronically, [facility] #[id number], 180, cm, 12/13/21 12:56:00 EDT, Height, 136.6, [...] Safety Implantable Status Assigning Authority Unknown Unknown [id number] Unknown 12/26/26 Unknown Unknown Active Unknown Patient Care team information Care Team Personnel Name: Kaitlyn De La Paz RN Position: [facility] RN Member Role: Primary Care Nurse Name: Purnima Esposito RN Position: [facility] RN Member Role: Primary Care Nurse Name: Tran Ireland RN Position: [facility] RN Member Role: Primary Care Nurse Name: Rebeka Dunbar RN Position: [facility] RN Member Role: Primary Care Nurse Name: Mary Beth Argueta RN Position: [facility] SN RN Member Role: Primary Care Nurse Name: Rosalinda Espinoza RN Position: [facility] RN Member Role: Primary Care Nurse Name: Natalee Farrell RN Position: [facility] RN Member Role: Primary Care Nurse Name: Liz Melara RN Position: [facility] RN Member Role: Primary Care Nurse Name: Vanesa Jo RN Position: [facility] RN Member Role: Primary Care Nurse Name: Jasmeet Del Castillo RN Position: [facility] RN Member Role: Primary Care Nurse Name: Ruby Rojas RN Position: S RN Member Role: Primary Care Nurse Name: Harleen Clark RN Position: [facility] RN Member Role: Primary Care Nurse Name: Roger Romero RN Position: [facility] RN Member Role: Primary Care Nurse Name: Manasa Weinstein RN Position: [facility] RN Member Role: Primary Care Nurse Name: Reina Romeo RN Position: [facility] RN Member Role: Primary Care Nurse Name: Mark Ruffin Position: [facility] RN Member Role: Primary Care Nurse Name: Albertina Acevedo RN Position: [facility] RN Member Role: Primary Care Nurse Name: Diana Patton RN Position: [facility] RN Member Role: Primary Care Nurse Name: Imelda Brand RN Position: [facility] RN Member Role: Primary Care Nurse Name: Joao Downs RN Position: [facility] RN Member Role: Primary Care Nurse Name: Mitzy Mora Position: [facility] RN Member Role: Primary Care Nurse Name: Ward Alcantar RN Position: [facility] RN Member Role: Primary Care Nurse Name: Karla Holder RN Position: [facility] RN Member Role: Primary Care Nurse Name: Eric Aceves III, RN Position: [facility] RN Member Role: Primary Care Nurse Name: Danay Galindo RN Position: [facility] RN Member Role: Primary Care Nurse Name: Ara De Santiago RN Position: [facility] Onco RN Member Role: Primary Care Nurse Name: Li De Santiago RN Position: [facility] RN Member Role: Primary Care Nurse Name: Jacky Love Position: [facility] Associate Professional Member Role: Lifetime Consulting Provider Address: Address: [address] [place] [address] Name: Micki Quezada RN Position: [facility] RN Member Role: Primary Care Nurse Name: Fatmata Alvarez RN Position: [facility] RN Member Role: Primary Care Nurse Name: Ila Hamm RN Position: [facility] RN Member Role: Primary Care Nurse Name: Rocio Bird RN Position: [facility] RN Member Role: Primary Care Nurse Name: Owen Kuhn MD Position: [facility] Renal MD Member Role: Lifetime Consulting Physician Address: Address: [address] [place] [address] [address] [facility], [address] Name: Sharon Christopher RN Position: [facility] RN Member Role: Primary Care Nurse Name: Praveena Raymond RN Position: [facility] RN Member Role: Primary Care Nurse Name: Carla Pickett RN Position: S RN Member Role: Primary Care Nurse Name: Marcella Nichols RN Position: [facility] RN Member Role: Primary Care Nurse Name: Margaret Hurtado RN Position: [facility] RN Member Role: Primary Care Nurse Name: Everett Marcelo RN Position: S RN Member Role: Primary Care Nurse Name: Noe Doyle MD Position: [facility] Renal MD Member Role: Lifetime Consulting Physician Address: Address: [address] [place] [address] [facility] [place] [address]- Name: Li Lu LPN Position: [facility] RN Member Role: Primary Care Nurse Name: Odalis Herrera Position: [facility] RN Member Role: Primary Care Nurse Name: Tete Rodríguez RN Position: [facility] RN Member Role: Primary Care Nurse Name: Hannah Mcintyre RN Position: [facility] RN Member Role: Primary Care Nurse Name: Margarita Franco RN Position: [facility] RN Member Role: Primary Care Nurse Name: Cherry Nguyen RN Position: [facility] RN Member Role: Primary Care Nurse Name: Theresa Robison RN Position: [facility] RN Member Role: Primary Care Nurse Name: Vladimir Keys MD Position: [facility] Primary Care Physician Member Role: PCP Address: Address: [address] [place] [address], [address] [place] [address]- Name: Remedios Ramírez RN Position: [facility] RN Member Role: Primary Care Nurse Name: Ashlee Sanders RN Position: [facility] RN Member Role: Primary Care Nurse Name: Theresa Geiger RN Position: [facility] RN Member Role: Primary Care Nurse Name: Danay Banegas RN Position: [facility] RN Member Role: Primary Care Nurse Name: Talat Saldivar RN Position: [facility] RN Member Role: Primary Care Nurse Name: Den Wilde RN Position: [facility] SN RN Member Role: Primary Care Nurse Name: Rosalino Hernadez RN Position: [facility] RN Member Role: Primary Care Nurse Name: Chloe Prado Position: S RN Member Role: Primary Care Nurse Care Team Related Persons Name: RETA DESMOND Address: [address] [place] [address]
--- OUTSIDE RECORDS SUMMARY | 2024-01-20 06:14 | XMS_ITS | Continuity of Care Document ---
Author Organization [facility] Address [address] [place] [id number]- Care Team Providers Care Logistician Name Role Phone Vladimir Keys MD Primary Care Physician [place] [facility] [place] - 03/29/[address] [address]- Encounter Diagnosis Chronic atrial fibrillation(Final) - 03/02/22 CKD (chronic kidney disease), stage IV(Final) - 03/02/22 Systolic CHF, chronic(Final) - 03/02/22 Pressure ulcer of buttock(Final) - 03/02/22 Hyperlipidemia(Discharge Diagnosis) - 03/03/22 Prosthetic valve endocarditis(Discharge Diagnosis) - 03/03/22 Discharge Disposition: A-Transfer SNF Attending Physician: Jesus Bedolla MD Admitting Physician: Sandrine Bates MD Referring Physician: Not on Staff, Referring MD Allergies, Adverse Reactions, Alerts No Known [...] virus vaccine, inactivated 04/07/15 Ron rded Medications Acetaminophen Tablet 650 mg, Tablet, By Mouth, Every 4 hours, PRN for Pain , Mild, Temperature Greater than 100.5, Routine, 03/03/22 1:29:00 EDT Start Date: 03/03/22 Stop Date: 03/30/22 Status: Discontinued allopurinol 300 mg oral tablet 300 mg, 1, tablet, By Mouth, Daily, # 90 tablet, Refills 0, Tot. Refills 0, Maintenance, 12/13/21 13:59:00 EDT, Route to Pharmacy Electronically, [id number], 180, cm, 12/13/21 12:56:00 EDT, Height, 136.6, [...] tablet, 1 Refills, Maintenance, 01/24/22 16:36:00 EDT, [facility] #[id number], 180, cm, 01/24/22 16:01:00 EDT, Height, 136.6, [...] 0 Refills, Maintenance, 12/13/21 14:03:00 EDT, Tablet, [facility] #[id number], 180, cm, 12/13/21 12:56:00 EDT, Height, 136.6, kg, 09/08/21 16:31:00 EST, Dry Weight Start Date: 12/13/21 Status: Ordered gabapentin 100 mg oral capsule 100 mg, 1, capsule, By Mouth, 2 times a day, # 60 capsule, Refills 2, Tot. Refills 2, Maintenance, 01/24/22 16:33:00 EDT, Route to Pharmacy Electronically, [facility] #[id number], 180, cm, 01/24/22 16:01:00 EDT, Height, 136.6, kg, 09/08/21 16:31:0... Start Date: 01/24/22 Status: Ordered glipiZIDE 2.5 mg oral tablet, extended release 1 tablet = 2.5 mg, By Mouth, Daily, # 90 tablet, 0 Refills, Maintenance, 12/13/21 14:03:00 EDT, ER Tablet, [facility] #[id number], Partial fill upon patient request if the [...] release 150 mg, XL Tablet, By Mouth, Hold for: For SBP less than 120 or HR less than 60, 03/29/22 9:00:00 EDT Start Date: 03/29/22 Stop Date: 03/29/22 Status: Completed metoprolol 50 mg oral tablet, extended release 150 mg, 3, tablet, By Mouth, Daily, # 270 tablet, Refills 1, Tot. Refills 1, Maintenance, 11/27/21 12:04:00 EDT, Route to Pharmacy Electronically, [facility] #[id number], 180, cm, 09/22/21 20:27:00 EST, Height, 136.6, kg, 09/08/21 16:31:00 EST, . Start Date: 11/27/21 Status: Ordered Milk of [...] opioid drug. Start Date: 01/24/22 Status: Ordered rifampin 300 mg oral capsule 1 capsule = 300 mg, By Mouth, 3 times a day, End Date 04/16/2020, 0 Refills, Maintenance, 03/29/22 12:48:00 EDT, Capsule, Partial fill upon patient request if the prescription is for a schedule II opioid drug. Start Date: 03/29/22 Status: Ordered simvastatin 20 mg oral tablet 1, tablet, By Mouth, Daily at bedtime, # 90 tablet, Refills 3, Tot. Refills 3, 12/14/21 1:07:00 EDT, Route to Pharmacy Electronically, [facility] #[id number], 180, cm, 12/13/21 12:56:00 EDT, Height, 136.6, [...] opioid drug. Start Date: 09/23/21 Status: Ordered vancomycin 125 mg oral capsule 1 capsule = 125 mg, By Mouth, Every 6 hours, would keep him on prophylactic dose 1 week after completion of Abx.Please continue PO vancomycin 1 week after 04/16/2022, 0 Refills, Maintenance, 03/29/2212:55:00 EDT, Capsule Start Date: 03/29/22 Status: Ordered vancomycin 750 mg/150 mL-NaCl 0.9% intravenous solution See Instructions, Vancomycin 750 mg on TTS Schedule after hemodylsis at hemodylasis center till 04/16/2022, # 1 pack/packet, 0 Refills, Maintenance, 03/29/22 12:57:00 EDT, Partial fill upon patient request if the prescription is for a schedule II opio... Start Date: 03/29/22 Status: Ordered Vitamin D3 1000 intl units oral capsule 1 capsule = 25 mcg, By Mouth, Daily, # 100 capsule, 0 Refills, Maintenance, 02/04/22 13:38:00 EDT, Capsule, Partial fill upon patient request if the prescription is for a schedule II opioid drug. Start Date: 02/04/22 Status: Ordered warfarin 10 mg oral tablet 1 tablet = 10 mg, By Mouth, Daily, 0 Refills, Maintenance, 03/29/22 12:46:00 EDT, Tablet, Partial fill upon patient request if the prescription is for a schedule II opioid drug. Start Date: 03/29/22 Status: Ordered Problem List Condition Effective Dates [...] infection)(Confirmed) Active 1Problem added by Discern Expert Diagnosis Diagnosis Type Effective Dates Health Status Clinical Service Informant Hyperlipidemia Discharge Diagnosis 03/03/22 Non-Specified Prosthetic valve endocarditis Discharge Diagnosis 03/03/22 Non-Specified Results Orders for Microbiology Reports Name Date Blood Culture 03/06/22 Blood Culture #2 03/06/22 Urine Culture (URINE CULTURE) 03/05/22 Blood Culture 03/04/22 Blood Culture #2 03/04/22 Urine Culture (URINE CULTURE) 03/02/22 Blood Culture 03/02/22 Blood Culture #2 03/02/22 Microbiology Reports TEST:Blood Culture STATUS:Auth (Verified) BODY SITE: SOURCE:Blood COLLECTED DATE/TIME:03/06/22 12:30 AM Blood Culture SPECIMEN DESCRIPTION : BLOOD NO SITE SPECIAL REQUESTS : NONE CULTURE : NO GROWTH 5 DAYS. REPORT STATUS : FINAL 03/11/2022 TEST:Blood Culture, Second Order STATUS:Auth (Verified) BODY SITE: SOURCE:Blood COLLECTED DATE/TIME:03/06/22 12:30 AM Blood Culture, Second Order SPECIMEN DESCRIPTION : BLOOD NO SITE SPECIAL REQUESTS : NONE CULTURE : NO GROWTH 5 DAYS. REPORT STATUS : FINAL 03/11/2022 TEST:Urine Culture STATUS:Auth (Verified) BODY SITE: SOURCE:URINE COLLECTED DATE/TIME:03/05/22 6:00 PM Urine Culture SPECIMEN DESCRIPTION : URINE SPECIAL REQUESTS : NONE CULTURE : NO GROWTH REPORT STATUS : FINAL 03/06/2022 TEST:Blood Culture, Second Order STATUS:Auth (Verified) BODY SITE: SOURCE:Blood COLLECTED DATE/TIME:03/04/22 12:46 PM Blood Culture, Second Order SPECIMEN DESCRIPTION : BLOOD RHAND SPECIAL REQUESTS : NONE CULTURE : NO GROWTH 5 DAYS. REPORT STATUS : FINAL 03/09/2022 TEST:Blood Culture STATUS:Auth (Verified) BODY SITE: SOURCE:Blood COLLECTED DATE/TIME:03/04/22 8:38 AM Blood Culture SPECIMEN DESCRIPTION : BLOOD LFT AC SPECIAL REQUESTS : CRITICAL VALUE CALLED AND VERIFIED BY READBACK FOR: GRAM POSITIVE COCCI CALLED TO [id number] [id number] BY TECH 3535 CULTURE : STAPHYLOCOCCUS AUREUS, METHICILLIN RESISTANT. METHICILLIN RESISTANT STAPH AUREUS SHOULD BE CONSIDERED CLINICALLY RESISTANT TO ALL BETA-LACTAMS. This isolate was identified using Maldi-TOF system These AST results were performed on the Microscan ID and AST system Result reported to the [facility]. REPORT STATUS : FINAL 03/08/2022 ORGANISM STAPHYLOCOCCUS AUREUS, METHICILLIN RESISTANT. ORGANISM METHICILLIN RESISTANT STAPH AUREUS SHOULD BE ORGANISM CONSIDERED CLINICALLY RESISTANT TO ALL ORGANISM BETA-LACTAMS. This isolate was identified using Maldi-TOF system These AST results were performed on the Microscan ID and AST system Result reported to the [facility]. METHOD MIN. INHIB. CONC. (MCG/ML) CIPROFLOXACIN RESISTANT CLINDAMYCIN RESISTANT DAPTOMYCIN SUSCEPTIBLE DAPTOMYCIN JULY EQ <0.5 MCG/ML ERYTHROMYCIN RESISTANT LEVOFLOXACIN RESISTANT LINEZOLID SUSCEPTIBLE OXACILLIN RESISTANT RIFAMPIN SUSCEPTIBLE RIFAMPIN RIFAMPIN SHOULD NOT BE USED ALONE FOR ANTIMICROBIAL RIFAMPIN THERAPY. TETRACYCLINE SUSCEPTIBLE TRIMETH/SULFAMETHOX SUSCEPTIBLE VANCOMYCIN SUSCEPTIBLE VANCOMYCIN JULY EQ 2 MCG/ML TEST:Urine Culture STATUS:Auth (Verified) BODY SITE: SOURCE:URINE COLLECTED DATE/TIME:03/02/22 10:40 PM Urine Culture SPECIMEN DESCRIPTION : URINE SPECIAL REQUESTS : NONE CULTURE : <10,000 COL/ML REPORT STATUS : FINAL 03/04/2022 TEST:Blood Culture STATUS:Auth (Verified) BODY SITE: SOURCE:Blood COLLECTED DATE/TIME:03/02/22 8:31 PM Blood Culture SPECIMEN DESCRIPTION : BLOOD RT AC SPECIAL REQUESTS : CRITICAL VALUE CALLED AND VERIFIED BY READBACK FOR: GRAM POSITIVE COCCI TO [id number],EW,03/03 AT 1505 BY TECH 155 CULTURE : STAPHYLOCOCCUS AUREUS, METHICILLIN RESISTANT. METHICILLIN RESISTANT STAPH AUREUS SHOULD BE CONSIDERED CLINICALLY RESISTANT TO ALL BETA-LACTAMS. FOR SUSCEPTIBILITY RESULT REFER TO BLOOD CULTURE Result reported to the [facility]. S. aureus was identified by multi-plex PCR. Mec A detected. Due to the presence of the mecA gene, this isolate should be considered resistant to methicillin (MRSA). REPORT STATUS : FINAL 03/05/2022 TEST:Blood Culture, Second Order STATUS:Auth (Verified) BODY SITE: SOURCE:Blood COLLECTED DATE/TIME:03/02/22 8:31 PM Blood Culture, Second Order SPECIMEN DESCRIPTION : BLOOD LT HAND SPECIAL REQUESTS : CRITICAL VALUE CALLED AND VERIFIED BY READBACK FOR: GRAM POSITIVE COCCI TO [id number],EW,03/03 AT 1505 BY TECH 155 CULTURE : STAPHYLOCOCCUS AUREUS, METHICILLIN RESISTANT. METHICILLIN RESISTANT STAPH AUREUS SHOULD BE CONSIDERED CLINICALLY RESISTANT TO ALL BETA-LACTAMS. This isolate was identified using Maldi-TOF system These AST results were performed on the ProtonMailcan ID and AST system Result reported to the [facility]. REPORT STATUS : FINAL 03/05/2022 ORGANISM STAPHYLOCOCCUS AUREUS, METHICILLIN RESISTANT. ORGANISM METHICILLIN RESISTANT STAPH AUREUS SHOULD BE ORGANISM CONSIDERED CLINICALLY RESISTANT TO ALL ORGANISM BETA-LACTAMS. This isolate was identified using Maldi-TOF system These AST results were performed on the Microscan ID and AST system Result reported to the [facility]. METHOD MIN. INHIB. CONC. (MCG/ML) CIPROFLOXACIN RESISTANT CLINDAMYCIN RESISTANT ERYTHROMYCIN RESISTANT LEVOFLOXACIN RESISTANT LINEZOLID SUSCEPTIBLE OXACILLIN RESISTANT RIFAMPIN SUSCEPTIBLE RIFAMPIN RIFAMPIN SHOULD NOT BE USED ALONE FOR ANTIMICROBIAL RIFAMPIN THERAPY. TETRACYCLINE SUSCEPTIBLE TRIMETH/SULFAMETHOX SUSCEPTIBLE VANCOMYCIN SUSCEPTIBLE VANCOMYCIN JULY EQ 2 MCG/ML Radiology Reports * Exam Date Time Procedure Performing Provider Status 03/22/22 2:18 PM C-Arm < 1 Hour Leanna Cabral; Sara (Verif ied) Notes: (C-Arm < 1 Hour) Reason For Exam: judith cath RESULT: C-Arm < 1 Hour C-Arm < 1 Hour INDICATION: Reason: judith cath COMPARISONS: None TECHNIQUE: Fluoroscopy support was provided. There was no radiologist in attendance. FLUOROSCOPY TIME: 2.5 seconds TECHNOLOGIST TIME: 30 minutes FINDINGS: Fluoroscopy support was provided. There was no radiologist in attendance. IMPRESSION: See above. WSN: [id number] Ordering Physician: Stephon Serrano Dictated By: James Burnette MD Dictated Date/Time: 03/25/22 9:14 pm Reviewed By: James Burnette MD Signed By: James Burnette MD Signed Date/Time: 03/25/22 9:14 pm Transcribed By: MARIYA Transcribed Date/Time: 03/25/22 8:18 pm * Exam Date Time Procedure Performing Provider Status 03/05/22 9:23 AM Hand Min 3 Views Right Giuliano Casiano; Auth (Verified) Notes: (Hand Min 3 Views Right) Reason For Exam: Chronic paronychia or osteomyelitis;Other: RESULT: Hand Min 3 Views Right Hand Min 3 Views Right, 3 views REASON: Chronic paronychia or osteomyelitis; Clinical Question(s): Osteomyelitis COMPARISON: None. FINDINGS: No fracture or bone lesion. Background of diffuse osteopenia. Focal loss of the trabecular pattern in the fifth mid phalanx, however no periosteal reaction. Juxta-articular erosive changes at the fifth DIP joint. Mild swelling of the fifth digit. Asymmetric joint space narrowing of the second and third metacarpal phalangeal joints with subchondral cystic changes. Widened scapholunate interval. Severe peripheral vascular calcifications. IMPRESSION: Focal loss of the trabecular pattern in the fifth mid phalanx, asymmetric to the background of diffuse osteopenia, suspicious for osteomyelitis. Asymmetric joint space narrowing and subchondral cystic changes at the second and third MCP joints,likely representing inflammatory arthropathy, not a typical appearance for osteoarthritis. Widened scapholunate interval, likely due to scapholunate ligament injury or insufficiency. I have personally reviewed the images and I agree with this report. WSN: [id number] Ordering Physician: Micheal White Dictated By: Noe Fung DO Dictated Date/Time: 03/05/22 11:15 a Reviewed By: Paul Roman MD Signed By: Paul Roman MD Signed Date/Time: 03/05/22 11:20 am Transcribed By: MARIYA Transcribed Date/Time: 03/05/22 11:09 am * Exam Date Time Procedure Performing Provider Status 03/02/22 10:44 PM Chest Portable Adilson Cortés; Sara (Verified) Notes: (Chest Portable) Reason For Exam: Fever RESULT: Chest Portable Chest Portable Hx of Present Illness: 77 y o BIBA from home with AMS, increased confusion for past few days, and difficulty voiding. Multiple wounds.; Reason: Fever; Clinical Question(s): Pneumonia COMPARISON: 09/11/2021. FINDINGS: LINES AND TUBES: None. LUNGS AND PLEURA: Clear lungs. Normal pulmonary vascularity. No pleural effusion. No pneumothorax. HEART, [address] AVE: Mild prominence of the cardiac silhouette, unchanged. Status post TAVR. BONES AND SOFT TISSUES: No acute abnormality. IMPRESSION: No acute abnormality. WSN: [id number] Ordering Physician: Yanet Santana Dictated By: Tayler Gilman MD Dictated Date/Time: 03/02/22 10:46 p Reviewed By: Tayler Gilman MD Signed By: Tayler Gilman MD Signed Date/Time: 03/02/22 10:46 pm Transcribed By: MARIYA Transcribed Date/Time: 03/02/22 10:45 pm Vital Signs Most recent to oldest [Reference Range]: 1 2 3 Height 177.8 cm (03/29/22 11:33 AM) 177.8 cm (03/29/22 7:48 AM) 177.8 cm (03/29/22 5:12 AM) Weight 126.5 kg (03/06/22 9:44 AM) 126.5 kg (03/03/22 6:43 PM) 118.2 kg (03/03/22 5:02 PM) Oxygen Saturation [94-100 %] 95 % (03/29/22 2:00 PM) 96 % (03/29/22 11:33 AM) 99 % (03/29/22 7:48 AM) Pulse Rate [55-90 bpm] 113 bpm *H* (03/29/22 2:00 PM) 82 bpm (03/29/22 11:33 AM) 87 bpm (03/29/22 8:35 AM) Body Mass Index [18.5-24.99] 40.02 *>HHI* (03/03/22 6:43 PM) 37.39 *>HHI* (03/03/22 5:02 PM) 37.39 *>HHI* (03/03/22 12:21 PM) Blood Pressure [90-138/55-84 mm Hg] 116/60mm Hg (03/29/22 2:00 PM) 103/44mm Hg (03/29/22 11:33 AM) 106/48mm Hg (03/29/22 8:35 AM) Respiratory Rate [16-30 br/min] 18 br/min (03/29/22 2:00 PM) 18 br/min (03/29/22 11:33 AM) 18 br/min (03/29/22 9:42 AM) Temperature [96.8-100.4 DegF] 98.7 DegF (03/29/22 2:00 PM) 98.7 DegF (03/29/22 11:33 AM) 98 DegF (03/29/22 7:48 AM) Liters per Minute 6 L/min (03/22/22 3:15 PM) Mode of Delivery (Oxygen) Room air (03/29/22 2:00 PM) Room air (03/29/22 11:33 AM) Room air (03/29/22 7:48 AM) Blood pressure sites Arm, right (03/29/22 2:00 PM) Arm, right (03/29/22 11:33 AM) Arm, right (03/29/22 7:48 AM) Temperature Route Oral (03/29/22 11:33 AM) Oral (03/29/22 7:48 AM) Oral (03/29/22 5:12 AM) Dry Weight 126.5 kg (03/03/22 6:43 PM) 118.2 kg (03/03/22 5:02 PM) 118.2 kg (03/03/22 12:21 PM) Weight Obtained Via Bed scale (03/03/22 6:43 PM) Dry Weight Obtained Via Bed scale (03/03/22 6:43 PM) Social History Social History Type Response Smoking Status Cigars or pipes but not daily within last 30 days; Type: Cigars; Other: occasionally, couple times a week.; entered on: 11/30/20 Sex Note * [facility] , CIS S: TRANSCRIBE James Burnette MD: VERIFY Event Display: Result: Authored Date: C-Arm < 1 Hour INDICATION: Reason: judith cath COMPARISONS: None TECHNIQUE: Fluoroscopy support was provided. There was no radiologist in attendance. FLUOROSCOPY TIME: 2.5 seconds TECHNOLOGIST TIME: 30 minutes FINDINGS: Fluoroscopy support was provided. There was no radiologist in attendance. IMPRESSION: See above. WSN: [id number] Ordering Physician: Stephon Serrano Dictated By: James Burnette MD Dictated Date/Time: 03/25/22 9:14 pm Reviewed By: James Burnette MD Signed By: James Burnette MD Signed Date/Time: 03/25/22 9:14 pm Transcribed By: MARIYA Transcribed Date/Time: 03/25/22 8:18 pm * [facility] , CIS S: TRANSCRIPaul Katz MD: VERIFY Noe Fung DO: SIGN Event Display: Result: Authored Date: Hand Min 3 Views Right, 3 views REASON: Chronic paronychia or osteomyelitis; Clinical Question(s): Osteomyelitis COMPARISON: None. FINDINGS: No fracture or bone lesion. Background of diffuse osteopenia. Focal loss of the trabecular pattern in the fifth mid phalanx, however no periosteal reaction. Juxta-articular erosive changes at the fifth DIP joint. Mild swelling of the fifth digit. Asymmetric joint space narrowing of the second and third metacarpal phalangeal joints with subchondral cystic changes. Widened scapholunate interval. Severe peripheral vascular calcifications. IMPRESSION: Focal loss of the trabecular pattern in the fifth mid phalanx, asymmetric to the background of diffuse osteopenia, suspicious for osteomyelitis. Asymmetric joint space narrowing and subchondral cystic changes at the second and third MCP joints,likely representing inflammatory arthropathy, not a typical appearance for osteoarthritis. Widened scapholunate interval, likely due to scapholunate ligament injury or insufficiency. I have personally reviewed the images and I agree with this report. WSN: [id number] Ordering Physician: Micheal White Dictated By: Noe Fung DO Dictated Date/Time: 03/05/22 11:15 a Reviewed By: Paul Roman MD Signed By: Paul Roman MD Signed Date/Time: 03/05/22 11:20 am Transcribed By: MARIYA Transcribed Date/Time: 03/05/22 11:09 am * LOREN Damico S: Tayler Pineda MD: VERIFY Event Display: Result: Authored Date: [id number] Chest Portable Hx of Present Illness: 77 y o BIBA from home with AMS, increased confusion for past few days, and difficulty voiding. Multiple wounds.; Reason: Fever; Clinical Question(s): Pneumonia COMPARISON: 09/11/2021. FINDINGS: LINES AND TUBES: None. LUNGS AND PLEURA: Clear lungs. Normal pulmonary vascularity. No pleural effusion. No pneumothorax. HEART, [address] A[address]: Mild prominence of the cardiac silhouette, unchanged. Status post TAVR. BONES AND SOFT TISSUES: No acute abnormality. IMPRESSION: No acute abnormality. WSN: [id number] Ordering Physician: Yanet Santana Dictated By: Tayler Gilman MD Dictated Date/Time: 03/02/22 10:46 p Reviewed By: Tayler Gilman MD Signed By: Tayler Gilman MD Signed Date/Time: 03/02/22 10:46 pm Transcribed By: MARIYA Transcribed Date/Time: 03/02/22 10:45 pm Care Team Personnel Name: Vladimir Keys MD Address: [address] [place] [address], [facility] [address] [id number]
--- OUTSIDE RECORDS SUMMARY | 2024-01-20 06:14 | XMS_ITS | Continuity of Care Document ---
Author Organization [facility] Address Unknown Care Team Providers Care [address] [address] Name Role Phone Vladimir Keys MD Primary Care Physician [place] [facility] [place] 09/19/21 - 10/19/21 [facility] Attending Physician: AdmTanmay mahmood Admitting Physician: AdmtrTanmay Referring Physician: Admtr, Ar8 [...] Refills 1, Route to Pharmacy Electronically, [id number], 174, cm, 01/19/21 13:26:00 EDT, Height, 127.5, [...]
--- OUTSIDE RECORDS SUMMARY | 2024-01-20 06:14 | XMS_ITS | Continuity of Care Document ---
Author Organization [facility] Address [address] [place] [id number]- Care Team Providers Care Mail Deliverer Name Role Phone Vladimir Keys MD Primary Care Physician Encounter [facility] [place] Date(s): 09/08/21 - 09/23/[address] [address] Discharge Disposition: A-Transfer SNF Attending Physician: Julia Humphrey MD Admitting Physician: Zack Campbell MD Referring Physician: Not on Staff, Referring [...] 400 <<... Start Date: 09/06/21 Status: Ordered levoFLOXacin 750 mg oral tablet 1 tablet = 750 mg, By Mouth, Every 48 hours, for 2 days, # 2 tablet, 0 Refills, Acute 09/26/21 13:20:00 EDT, 09/24/21 13:20:00 EDT, Partial fill upon patient request if the prescription is for a schedule II opioid drug. Start Date: 09/24/21 Stop Date: 09/26/21 Status: Ordered melatonin 3 mg oral tablet [...] opioid drug. Start Date: 09/23/21 Status: Ordered metoprolol 25 mg oral tablet 75 mg, Tablet, By Mouth, 09/23/21 9:00:00 EDT Start Date: 09/23/21 Stop Date: 09/23/21 Status: Completed metoprolol 25 mg oral tablet 75 mg, Tablet, By Mouth, 09/22/21 21:00:00 EST Start Date: 09/22/21 Stop Date: 09/23/21 Status: Completed Milk of Magnesia Liquid 30 mL, By [...] tablet, Refills 1, Route to Pharmacy Electronically, [facility] #[id number], 174, cm, 01/19/21 13:26:00 EDT, Height, 127.5, [...] block)(Confirmed) Active Mitral valve stenosis, non-rheumatic(Confirmed) Active Severe obesity(Confirmed) Active Type 2 diabetes mellitus(Confirmed) Active 1Problem added by Discern Expert Results Orders for Microbiology Reports Name Date Urine Culture (URINE CULTURE) 09/20/21 Blood Culture 09/08/21 Urine Culture (URINE CULTURE) 09/08/21 Microbiology Reports TEST:Urine Culture STATUS:Auth (Verified) BODY SITE: SOURCE:URINE COLLECTED DATE/TIME:09/20/21 3:49 PM Urine Culture SPECIMEN DESCRIPTION : URINE CLEAN CATCH/MIDSTREAM SPECIAL REQUESTS : NONE Reflexed from [id number] CULTURE : >100,000 COL/ML ESCHERICHIA COLI This isolate was identified using Maldi-TOF system These AST results were performed on the Jeeran ID and AST system REPORT STATUS : FINAL 09/22/2021 ORGANISM >100,000 COL/ML ESCHERICHIA COLI This isolate was identified using Maldi-TOF system METHOD MIN. INHIB. CONC. (MCG/ML) AMPICILLIN RESISTANT AMPICILLIN/SULBACTAM RESISTANT AMOXICILLIN/CLAVULAN RESISTANT CEFAZOLIN RESISTANT CEFEPIME SUSCEPTIBLE CEFTRIAXONE SUSCEPTIBLE CIPROFLOXACIN SUSCEPTIBLE ERTAPENEM SUSCEPTIBLE GENTAMICIN SUSCEPTIBLE LEVOFLOXACIN SUSCEPTIBLE MEROPENEM SUSCEPTIBLE NITROFURANTOIN SUSCEPTIBLE PIPERACILLIN/TAZOBAC RESISTANT TRIMETH/SULFAMETHOX SUSCEPTIBLE TETRACYCLINE RESISTANT TEST:Blood Culture STATUS:Auth (Verified) BODY SITE: SOURCE:Blood COLLECTED DATE/TIME:09/08/21 11:30 PM Blood Culture SPECIMEN DESCRIPTION : BLOOD PICC SPECIAL REQUESTS : NONE CULTURE : NO GROWTH 5 DAYS. REPORT STATUS : FINAL 09/14/2021 TEST:Urine Culture STATUS:Auth (Verified) BODY SITE: SOURCE:URINE COLLECTED DATE/TIME:09/08/21 8:55 AM Urine Culture SPECIMEN DESCRIPTION : URINE SPECIAL REQUESTS : NONE CULTURE : NO GROWTH REPORT STATUS : FINAL 09/09/2021 Radiology Reports * Exam Date Time Procedure Performing Provider Status 09/11/21 11:55 AM Chest Portable Carla Mcghee; Auth (Verified) Notes: (Chest Portable) Reason For Exam: PICC line placement;Line Placement RESULT: Chest Portable Chest Portable Reason: Line Placement; PICC line placement; Clinical Question(s): Line Placement COMPARISON: 09/08/2021 FINDINGS: LINES AND TUBES: A right PICC is again noted, tip currently at level of T7-T8, distal SVC. LUNGS AND PLEURA: Small moderate right and small left pleural effusions remain, either slightly decreasing or appearing lower due to better inspiration. The central pulmonary vessels remain enlarged and congested, similar to that seen previously. Moderate opacities in lower lung zones similar to those seen previously likely reflecting atelectasis and edema/infiltrate. No pneumothorax. HEART, MEDIASTINUM AND AVE: Moderate prominence of the cardiac silhouette, unchanged. Normal upper mediastinal and hilar contour. BONES AND SOFT TISSUES: No acute abnormality. IMPRESSION: Right PICC appears to be in good position. Mildly improved inflation. Small bilateral pleural effusions similar versus mildly decreased. Unchanged vascular congestion and lower lung opacities. WSN: [id number] Ordering Physician: Jamila Ramirez Dictated By: Paul Dunn MD Dictated Date/Time: 09/11/21 2:11 pm Reviewed By: Paul Dunn MD Signed By: Paul Dunn MD Signed Date/Time: 09/11/21 2:11 pm Transcribed By: MARIYA Transcribed Date/Time: 09/11/21 2:05 pm * Exam Date Time Procedure Performing Provider Status 09/08/21 8:30 AM Chest Portable Eklucinager Marcia; Auth (Verified) Notes: (Chest Portable) Reason For Exam: Shortness of Breath RESULT: Chest Portable Chest Portable Hx of Present Illness: Patient arrives via EMS from facility with hypoxia. Was 60% on RA. Covid positive 09 05 21; Reason: Shortness of Breath; Clinical Question(s): Pneumonia; Special Instructions: PUI COMPARISON: Chest x-ray from 09/06/2021 and 09/05/2021. CT abdomen from 08/14/2021 FINDINGS: LINES AND TUBES: Right PICC projects over the mid SVC. LUNGS AND PLEURA: Hazy bibasilar airspace opacities with blunting of the hemidiaphragms and costophrenic angles compatible with bilateral pleural effusions. Suspect effusion on the right appears increased relative to 09/05/2021 No pneumothorax. HEART, MEDIAST[address] AND AVE: Unchanged. BONES AND SOFT TISSUES: No acute abnormality. IMPRESSION: Persistent hazy bibasilar airspace opacities. There is blunting of the costophrenic angles, worse on the right compared to 09/05/2021, suggestive of increasing right pleural effusion, [id number] in size. WSN: [id number] Ordering Physician: Norma Ashley Dictated By: Paul Poole MD Dictated Date/Time: 09/08/21 10:01 a Reviewed By: Paul Poole MD Signed By: Paul Poole MD Signed Date/Time: 09/08/21 10:01 am Transcribed By: MARIYA Transcribed Date/Time: 09/08/21 9:57 am Vital Signs Most recent to oldest [Reference Range]: 1 2 3 Height 180 cm (09/22/21 8:27 PM) 180 cm (09/21/21 8:09 AM) 180 cm (09/20/21 8:03 AM) Weight 132.9 kg (09/22/21 8:00 AM) 137.2 kg (09/20/21 6:28 AM) 159.3 kg (09/15/21 6:00 AM) Oxygen Saturation [94-100 %] 99 % (09/23/21 7:00 AM) 100 % (09/22/21 8:00 PM) 95 % (09/22/21 5:00 PM) Pulse Rate [55-90 bpm] 81 bpm (09/23/21 8:49 AM) 81 bpm (09/23/21 7:00 AM) 97 bpm *H* (09/23/21 12:38 AM) Body Mass Index [18.5-24.99] 42.16 *>HHI* (09/08/21 4:31 PM) Blood Pressure [90-138/55-84 mm Hg] 107/72mm Hg (09/23/21 8:49 AM) 107/72mm Hg (09/23/21 7:00 AM) 123/63mm Hg (09/23/21 12:38 AM) Respiratory Rate [16-30 br/min] 19 br/min (09/23/21 7:00 AM) 20 br/min (09/22/21 8:00 PM) 20 br/min (09/22/21 5:00 PM) Temperature [96.8-100.4 DegF] 97.5 DegF (09/23/21 7:00 AM) 97.8 DegF (09/22/21 8:00 PM) 97.6 DegF (09/22/21 5:00 PM) Liters per Minute 3 L/min (09/12/21 8:12 AM) 3 L/min (09/11/21 11:04 PM) 3 L/min (09/11/21 7:00 PM) Mode of Delivery (Oxygen) Room air (09/23/21 7:00 AM) Room air (09/22/21 8:00 PM) Room air (09/22/21 5:00 PM) Blood pressure sites Arm, left (09/23/21 7:00 AM) Arm, left (09/22/21 8:27 PM) Arm, left (09/22/21 8:00 PM) Temperature Route Oral (09/23/21 7:00 AM) Oral (09/22/21 8:00 PM) Oral (09/22/21 5:00 PM) Dry Weight 136.6 kg (09/08/21 4:31 PM) Weight Obtained Via Bed scale (09/22/21 8:00 AM) Bed scale (09/15/21 6:00 AM) Bed scale (09/14/21 7:56 AM) Dry Weight Obtained Via Bed scale (09/08/21 4:31 PM) Social History Social History Type Response Smoking Status Cigars or pipes but not daily within last 30 days; Type: Cigars; Other: occasionally, couple times a week.; entered on: 11/30/20 Sex
--- OUTSIDE RECORDS SUMMARY | 2024-01-20 06:14 | XMS_ITS | Continuity of Care Document ---
Author Organization [facility] Address [address] [place] [address]- Care Team Providers Care Quick Sketch Artist Name Role Phone Vladimir Keys MD Primary Care Physician En[place] [facility] [place] Date(s): 03/26/21 - 04/02/21 [facility] [address] [place], [place] [address] Attending Physician: Anastasiia OLMOS, Mallory Vega Admitting Physician: Anastasiia OLMOS, Mallory Vega Referring Physician: Jason PARISH, Gail Akins Allergies, [...] Mouth, Daily, # 90 tablet, 0 Refills, [facility] #[id number], 174, cm, 01/19/21 13:26:00 EDT, Height, 127.5, [...] tablet, Refills 0, Route to Pharmacy Electronically, [facility] #72521, 174, cm, 01/19/21 13:26:00 EDT, Height, 127.5, kg, 11/30/20 1:55:00 EDT, Dry Weight Start Date: 03/06/21 Status: Ordered Metoprolol Tartrate 50 mg oral tablet 1.5 tablet, By Mouth, 2 times a day, # 270 tablet, 0 Refills, [facility] #72312, 174, cm, 01/19/21 13:26:00 EDT, Height, 127.5, [...] tablet, Refills 1, Route to Pharmacy Electronically, [facility] #[id number], 174, cm, 01/19/21 13:26:00 EDT, Height, 127.5, kg, 11/30/20 1:55:00 EDT, Dry Weight Start Date: 03/06/21 Status: Ordered torsemide 20 mg oral tablet 1 tablet, By Mouth, 2 times a day, # 180 tablet, 0 Refills, Maintenance, 11/17/20 12:34:00 EDT, [facility] #[id number], 172, cm, 05/14/20 1:37:00 EST, Height, 127, kg, 05/14/20 1:37:00 EST, Dry Weight Start Date: 11/17/20 Status: Ordered warfarin 5 mg oral tablet 2 tablet, By Mouth, Daily, # 60 tablet, 0 Refills, [facility] #[id number], 174, cm, 01/19/21 13:26:00 EDT, Height, 127.5, [...] non-rheumatic(Confirmed) Active Type 2 diabetes mellitus(Confirmed) Active Vital Signs Most recent to oldest [Reference Range]: 1 Height 174 cm (03/26/21 2:17 PM) Weight 136 kg (03/26/21 2:17 PM) Oxygen Saturation [94-100 %] 98 % (03/26/21 2:17 PM) Pulse Rate [55-90 bpm] 87 bpm (03/26/21 2:17 PM) Body Mass Index [18.5-24.99] 44.92 *>HHI* (03/26/21 2:17 PM) Blood Pressure [90-138/55-84 mm Hg] 114/ 60mm Hg (03/26/21 2:17 PM) Blood pressure sites Arm, left (03/26/21 2:17 PM) Weight Obtained Via Patient/family state d (03/26/21 2:17 PM) Social History Social History Type Response Smoking Status Cigars or pipes but not daily within last 30 days; Type: Cigars; Other: occasionally, couple times a week.; entered on: 11/30/20 Sex
--- OUTSIDE RECORDS SUMMARY | 2024-01-20 06:14 | XMS_ITS | Continuity of Care Document ---
Author Organization [facility] Address [address] [place] [address]- Care Team Providers Care Belt Tender Name Role Phone Vladimir Keys MD Primary Care Physician [phone] Encounter [facility] Date(s): 08/16/21 - 09/21/21 [facility] [address] [place] [phone]- Attending Physician: Gume Padilla MD Admitting Physician: Gume Padilla MD Referring Physician: Vladimir Keys MD Allergies, Adverse Reactions, Alerts No Known Allergies Immunizations Given and Recorded Vaccine Date Status Refusal Reason influenza virus vaccine, inactivated 04/24/21 Ron rded influenza virus vaccine, inactivated 03/05/20 Ron rded influenza virus vaccine, inactivated 03/14/17 Rno rded influenza virus vaccine, inactivated 03/31/16 Ron [...] opioid drug. Start Date: 09/06/21 Status: Ordered Enoxaparin 0.93 mL = 140 mg, Subcutaneous Injection, Every 24 hours, 0 Refills, Maintenance, 09/06/21 8:19:00 EST, Injection, Partial fill upon patient request if the prescription is for a schedule II opioid drug. Start Date: 09/06/21 Status: Ordered Fleet Enema 133 mL, Rectally, Once, 0 Refills, Maintenance, 09/08/21 13:03:00 EST, Partial fill upon patient request if the prescription is for a schedule II opioid drug. Start Date: 09/08/21 Status: Ordered gabapentin 100 mg oral capsule 200 mg, 2, capsule, By Mouth, 3 times a day, Refills 0, Maintenance, 09/06/21 8:19:00 EST, Partial fill upon patient request if the prescription is for a schedule II opioid drug. Start Date: 09/06/21 Status: Ordered insulin lispro 100 units/mL injectable [...] 400 <<... Start Date: 09/06/21 Status: Ordered Lantus Inj 0.15 mL = 15 units, Subcutaneous Injection, Daily at bedtime, 0 Refills, Maintenance, 09/06/21 8:19:00 EST, Injection, Partial fill upon patient request if the prescription is for a schedule II opioid drug. Start Date: 09/06/21 Status: Ordered melatonin 3 mg oral tablet = 3 mg, By Mouth, Daily at bedtime, PRN Insomnia, 0 Refills, Maintenance, 09/06/21 8:19:00 EST, Tablet, Partial fill upon patient request if the prescription is for a schedule II opioid drug. Start Date: 09/06/21 Status: Ordered metoprolol 25 mg oral tablet 75 mg, 3, tablet, By Mouth, 2 times a day, Refills 0, Maintenance, 09/06/21 8:18:00 EST, Partial fill upon patient request if the prescription is for a schedule II opioid drug. Start Date: 09/06/21 Status: Ordered Milk of Magnesia Liquid 30 [...] tablet, Refills 1, Route to Pharmacy Electronically, [facility] #[id number], 174, cm, 01/19/21 13:26:00 EDT, Height, 127.5, [...] cyclosilicate 10 g oral powder for reconstitution 1 pack/packet = 10 Gm, By Mouth, Every Friday, and Friday, 0 Refills, Maintenance, 09/06/21 8:20:00 EST, Packet, Partial fill upon patient request if the prescription is for a schedule IIopioid drug. Start Date: 09/06/21 Status: Ordered Tubersol 5 tu/0.1 ml intradermal solution = 5 units, Intradermal, Every 10 days, for infection control for 12 days start date 09/05/2021, # 1each, 0 Refills, Maintenance, 09/08/21 13:08:00 EST, Solution, Partial fill upon patient request ifthe prescription is for a schedule II opioid drug. Start Date: 09/08/21 Status: Ordered Tylenol 325 mg oral tablet 975 mg, 3, tablet, By Mouth, Every 8 hours, Refills 0, Maintenance, 09/06/21 8:19:00 EST, Partial fill upon patient request if the prescription is for a schedule II opioid drug. Start Date: 09/06/21 Status: Ordered warfarin 7.5 mg oral tablet [...] mellitus(Confirmed) Active 1Problem added by Discern Expert Social History Social History Type Response Smoking Status Cigars or pipes but not daily within last 30 days; Type: Cigars; Other: occasionally, couple times a week.; entered on: 11/30/20 Sex
--- OUTSIDE RECORDS SUMMARY | 2024-01-20 06:14 | XMS_ITS | Continuity of Care Document ---
Author Organization [facility] Address [address] [place] [phone]- Care Team Providers Care Machine Iii Coremaker Name Role Phone Vladimir Keys MD Primary Care Physician [place] [facility] [place]s): 05/28/21 - 06/27/21 [facility] [address] [place], [place] [address] Attending Physician: Tanmay Lin Admitting Physician: AdmtrTanmay Referring Physician: Admtr, Ar8 [...] EDT, Supply Start Date: 02/15/21 Status: Ordered Freestyle Lite Lancets See Instructions, # 100 each, Refills 1, Tot. Refills 1, Maintenance, Check blood glucose once a day before breakfast. DxE11.9, 06/22/21 15:54:00 EST, Supply, 174, cm, 03/26/21 14:17:00 EDT, Height, 127.5, kg, 11/30/20 1:55:00 EDT, Dry Weight Start Date: 06/22/21 Status: Ordered Freestyle Lite Test Strips See Instructions, # 100 each, Refills 1, Tot. Refills 1, Maintenance, Check blood glucose once a day before breakfast. DxE11.9, 06/22/21 15:54:00 EST, Supply, 174, cm, 03/26/21 14:17:00 EDT, Height, 127.5, kg, 11/30/20 1:55:00 EDT, Dry Weight Start Date: 06/22/21 Status: Ordered glipiZIDE 2.5 mg oral tablet, extended release 1 tablet, By Mouth, Daily, # 90 tablet, 0 Refills, [facility] #[id number], 174, cm, 01/19/21 13:26:00 EDT, Height, 127.5, [...] tablet, Refills 0, Route to Pharmacy Electronically, [facility] #[id number], 174, cm, 01/19/21 13:26:00 EDT, Height, 127.5, kg, 11/30/20 1:55:00 EDT, Dry Weight Start Date: 03/06/21 Status: Ordered Metoprolol Tartrate 50 mg oral tablet 1.5 tablet, By Mouth, 2 times a day, # 270 tablet, 3 Refills, 06/18/21 18:08:00 EST, [facility] #19905, 174, cm, 03/26/21 14:17:00 EDT, Height, 127.5, kg, 11/30/20 1:55:00 EDT, Dry Weight Start Date: 06/18/21 Status: Ordered Multi Vitamin+ 0 Refills, Maintenance, [...] tablet, Refills 1, Route to Pharmacy Electronically, [facility] #42825, 174, cm, 01/19/21 13:26:00 EDT, Height, 127.5, kg, 11/30/20 1:55:00 EDT, Dry Weight Start Date: 03/06/21 Status: Ordered torsemide 20 mg oral tablet 1 tablet, By Mouth, 2 times a day, # 180 tablet, 0 Refills, Maintenance, 11/17/20 12:34:00 EDT, [facility] #54585, 172, cm, 05/14/20 1:37:00 EST, Height, 127, kg, 05/14/20 1:37:00 EST, Dry Weight Start Date: 11/17/20 Status: Ordered warfarin 5 mg oral tablet 2 tablet, By Mouth, Daily, # 60 tablet, 0 Refills, [facility] #99536, 174, cm, 03/26/21 14:17:00 EDT, Height, 127.5, kg, 11/30/20 1:55:00 EDT, Dry Weight Start Date: 05/10/21 Status: Ordered Problem List Condition Effective Dates [...]
--- OUTSIDE RECORDS SUMMARY | 2024-01-20 06:14 | XMS_ITS | Continuity of Care Document ---
Author Organization [facility] Address Unknown Care Team Providers Care Social Media Marketer Name Role Phone Vladimir Keys MD Primary Care Physician En[place] [facility] [place] Date(s): 09/25/21 - 10/25/21 [facility] Allergies, Adverse Reactions, Alerts No Known Allergies [...] 1, Route to Pharmacy Electronically, [facility] #[id number], 174, cm, 01/19/21 13:26:00 EDT, Height, 127.5, [...]
--- OUTSIDE RECORDS SUMMARY | 2024-01-20 06:14 | XMS_ITS | Continuity of Care Document ---
Author Organization [facility] Address [address] [place] [phone]- Care Team Providers Care Clipping Marker Name Role Phone Vladimir Keys MD Primary Care Physician [phone] Encounter [facility] [id number] Date(s): 07/05/21 - 08/10/21 [facility] [address] [place] [phone]- Attending Physician: Gume Padilla MD Admitting Physician: [...] EDT, Supply Start Date: 02/15/21 Status: Ordered doxycycline hyclate 100 mg oral capsule 1 capsule = 100 mg, By Mouth, Every 12 hours, for 10 days, may take with food to minimize abdominaldiscomfort, # 20 capsule, 0 Refills, Acute 08/11/21 14:12:00 EST, 08/01/21 14:12:00 EST, Capsule, [facility][id number], Partial fill upon patient... Start Date: 08/01/21 Stop Date: 08/11/21 Status: Ordered Freestyle Lite Lancets See Instructions, [...] Mouth, Daily, # 90 tablet, 0 Refills, [facility]37953, 174, cm, 01/19/21 13:26:00 EDT, Height, 127.5, [...] 90 tablet, Refills 0, Tot. Refills 0, 07/10/21 10:34:00 EST, Route toPharmacy Electronically, [facility] #50837, 174, cm, 03/26/21 14:17:00 EDT, Height, 127.5,kg, 11/30/20 1:55:00 EDT, Dry Weight Start Date: 07/10/21 Status: Ordered Metoprolol Tartrate 50 mg oral tablet 1.5 tablet, By Mouth, 2 times a day, # 270 tablet, 3 Refills, 06/18/21 18:08:00 EST, [facility] #[id number], 174, cm, 03/26/21 14:17:00 EDT, Height, 127.5, [...] tablet, Refills 1, Route to Pharmacy Electronically, [facility] #46992, 174, cm, 01/19/21 13:26:00 EDT, Height, 127.5, kg, 11/30/20 1:55:00 EDT, Dry Weight Start Date: 03/06/21 Status: Ordered torsemide 20 mg oral tablet 1 tablet, By Mouth, 2 times a day, # 180 tablet, 0 Refills, [facility] #89172, 174, cm, 03/26/21 14:17:00 EDT, Height, 127.5, kg, 11/30/20 1:55:00 EDT, Dry Weight Start Date: 07/10/21 Status: Ordered warfarin 5 mg oral tablet 2 tablet, By Mouth, Daily, # 60 tablet, 0 Refills, [facility] #[id number], 174, cm, 03/26/21 14:17:00 EDT, Height, 127.5, kg, 11/30/20 1:55:00 EDT, Dry Weight Start Date: 08/05/21 Status: Ordered Problem List Condition Effective Dates [...]
--- OUTSIDE RECORDS SUMMARY | 2024-01-20 06:14 | XMS_ITS | Continuity of Care Document ---
Author Organization [facility] Address [address] [place] [phone]- Care Team Providers Care Head Machine Feeder Name Role Phone Vladimir Keys MD Primary Care Physician Encounter [facility] [place] Date(s): 08/20/21 - 10/25/21 [facility] [address] [place] [id number] Attending Physician: Shashi Swain MD Admitting Physician: [...] 1, Route to Pharmacy Electronically, [facility] #[id number], 174, cm, 01/19/21 13:26:00 EDT, Height, 127.5, [...]
--- OUTSIDE RECORDS SUMMARY | 2024-01-20 06:14 | XMS_ITS | Continuity of Care Document ---
Author Organization [facility] Address [address] [place] [phone]- Care Team Providers Care Weatherization Director Name Role Phone Vladimir Keys MD Primary Care Physician [phone] [place] [facility] [place]24[place]21 - 04/29/21 [facility] [address] [place] [address]- Attending Physician: Braulio Burnett MD Admitting Physician: [...] Mouth, Daily, # 90 tablet, 0 Refills, [facility] #31024, 174, cm, 01/19/21 13:26:00 EDT, Height, 127.5, [...] tablet, Refills 0, Route to Pharmacy Electronically, [facility] #90185, 174, cm, 01/19/21 13:26:00 EDT, Height, 127.5, kg, 11/30/20 1:55:00 EDT, Dry Weight Start Date: 03/06/21 Status: Ordered Metoprolol Tartrate 50 mg oral tablet 1.5 tablet, By Mouth, 2 times a day, # 270 tablet, 0 Refills, [facility] #41651, 174, cm, 01/19/21 13:26:00 EDT, Height, 127.5, [...] tablet, Refills 1, Route to Pharmacy Electronically, [facility] #72321, 174, cm, 01/19/21 13:26:00 EDT, Height, 127.5, kg, 11/30/20 1:55:00 EDT, Dry Weight Start Date: 03/06/21 Status: Ordered torsemide 20 mg oral tablet 1 tablet, By Mouth, 2 times a day, # 180 tablet, 0 Refills, Maintenance, 11/17/20 12:34:00 EDT, [facility] #81689, 172, cm, 05/14/20 1:37:00 EST, Height, 127, kg, 05/14/20 1:37:00 EST, Dry Weight Start Date: 11/17/20 Status: Ordered warfarin 5 mg oral tablet 2 tablet, By Mouth, Daily, # 60 tablet, 0 Refills, [facility] #22330, 174, cm, 01/19/21 13:26:00 EDT, Height, 127.5, [...]
--- OUTSIDE RECORDS SUMMARY | 2024-01-20 06:14 | XMS_ITS | Continuity of Care Document ---
Author Organization [facility] Address [address] [place] [phone]- Care Team Providers Care Vp Corporate Partnerships Name Role Phone Vladimir Keys MD Primary Care Physician [place] [facility] [place] - 05/25/21 [facility] [address] [place], [place] [address] Attending Physician: AdmTanmay mahmood Admitting Physician: AdmtrTanmay [...] Mouth, Daily, # 90 tablet, 0 Refills, [facility] #83469, 174, cm, 01/19/21 13:26:00 EDT, Height, 127.5, [...] tablet, Refills 0, Route to Pharmacy Electronically, [facility]57044, 174, cm, 01/19/21 13:26:00 EDT, Height, 127.5, kg, 11/30/20 1:55:00 EDT, Dry Weight Start Date: 03/06/21 Status: Ordered Metoprolol Tartrate 50 mg oral tablet 1.5 tablet, By Mouth, 2 times a day, # 270 tablet, 0 Refills, [facility] #34649, 174, cm, 01/19/21 13:26:00 EDT, Height, 127.5, [...] 1, Route to Pharmacy Electronically, [facility] #69279, 174, cm, 01/19/21 13:26:00 EDT, Height, 127.5, kg, 11/30/20 1:55:00 EDT, Dry Weight Start Date: 03/06/21 Status: Ordered torsemide 20 mg oral tablet 1 tablet, By Mouth, 2 times a day, # 180 tablet, 0 Refills, Maintenance, 11/17/20 12:34:00 EDT, [facility]40752, 172, cm, 05/14/20 1:37:00 EST, Height, 127, kg, 05/14/20 1:37:00 EST, Dry Weight Start Date: 11/17/20 Status: Ordered warfarin 5 mg oral tablet 2 tablet, By Mouth, Daily, # 60 tablet, 0 Refills, [facility]26048, 174, cm, 03/26/21 14:17:00 EDT, Height, 127.5, [...]
--- OUTSIDE RECORDS SUMMARY | 2024-01-20 06:14 | XMS_ITS | Continuity of Care Document ---
Author Organization [facility] Care Address [address] [place] [address]- Care Team Providers Care River Boat Captain Name Role Phone Vladimir Keys MD Primary Care Physician [place] [facility] [place] 08/22/21 - 09/21/21 [facility] [address] [place] [id number] Attending Physician: Tanmay Lin Admitting Physician: AdmTanmay mahmood Referring Physician: AdmtrTanmay Allergies, Adverse Reactions, Alerts No Known Allergies [...] tablet, Refills 1, Route to Pharmacy Electronically, [facility] #[id number], 174, cm, 01/19/21 13:26:00 EDT, Height, 127.5, [...]
--- OUTSIDE RECORDS SUMMARY | 2024-01-20 06:14 | XMS_ITS | Continuity of Care Document ---
Author Organization [facility] Infectious Disease Address [address] [place] [address]- Care Team Providers Care Teletypist Name Role Phone Vladimir Keys MD Primary Care Physician [place] [facility] [place](s[place] 10/21/22 - 12/08/22 [facility] Infectious Disease [address] [place] [id number] Attending Physician: Taylor Kennedy MD Admitting Physician: Taylor Kennedy MD Referring Physician: Vladimir Keys MD Allergies, [...] tablet, 1 Refills, Maintenance, 07/23/22 16:50:00 EST, [facility] #[id number], 182.88, cm, 05/09/22 12:50:00 EDT, Height, 125.1, [...] 1 Refills, Maintenance, 10/21/22 10:07:00 EDT, Capsule, [facility] #[id number], 177.8, cm, 10/21/22 7:55:00 EDT, Height, 106.6, [...] day, # 120 capsule, Refills 0, Maintenance, 11/08/22 15:18:00 EDT, Route to Pharmacy Electronically, [facility] #[id number], 177.8, cm, 10/21/22 11:06:00 EDT, Height, 106.6, kg, 10/18/22 3:46:00 EDT, Dry Weight Start Date: 11/08/22 Status: Ordered insulin lispro 100 units/mL injectable [...] 07/23/22 16:50:00 EST, [id number], 182.88, cm, 05/09/22 12:50:00 EDT, Height, 125.1, [...] 12/14/21 1:07:00 EDT, Route to Pharmacy Electronically, [facility] #[id number], 180, cm, 12/13/21 12:56:00 EDT, Height, 136.6, [...] Safety Implantable Status Assigning Authority Unknown Unknown [id number] Unknown 12/26/26 Unknown Unknown Active Unknown Patient Care team information Care Team Personnel Name: Ana Cristina LOREDOKaitlyn Position: [facility] RN Member Role: Primary Care Nurse Name: Purnima Esposito RN Position: [facility] RN Member Role: Primary Care Nurse Name: Tran Ireland RN Position: [facility] RN Member Role: Primary Care Nurse Name: Rebeka Dunbar RN Position: [facility] RN Member Role: Primary Care Nurse Name: Mary Beth Argueta RN Position: [facility] SN RN Member Role: Primary Care Nurse Name: Rosalinda Espinoza RN Position: [facility] RN Member Role: Primary Care Nurse Name: Carla Reid RN Position: [facility] SN RN Member Role: Primary Care Nurse Name: Natalee Farrell RN Position: [facility] RN Member Role: Primary Care Nurse Name: Jasmeet Del Castillo RN Position: [facility] RN Member Role: Primary Care Nurse Name: Ruby Rojas RN Position: [facility] RN Member Role: Primary Care Nurse Name: Harleen Clark RN Position: [facility] RN Member Role: Primary Care Nurse Name: Roger Romero RN Position: [facility] RN Member Role: Primary Care Nurse Name: Manasa Weinstein RN Position: [facility] RN Member Role: Primary Care Nurse Name: Tessa Hines RN Position: [facility] RN Member Role: Primary Care Nurse Name: Reina Romeo RN Position: [facility] RN Member Role: Primary Care Nurse Name: Mark Ruffin Position: [facility] RN Member Role: Primary Care Nurse Name: Albertina Acevedo RN Position: [facility] RN Member Role: Primary Care Nurse Name: Diana Patton RN Position: [facility] RN Member Role: Primary Care Nurse Name: Imelda Brand RN Position: [facility] RN Member Role: Primary Care Nurse Name: Joao Downs RN Position: [facility] RN Member Role: Primary Care Nurse Name: Mitzy Mora Position: [facility] RN Member Role: Primary Care Nurse Name: Ward Alcantar RN Position: [facility] RN Member Role: Primary Care Nurse Name: Karla Holder RN Position: [facility] RN Member Role: Primary Care Nurse Name: Eric Aceves III, RN Position: [facility] RN Member Role: Primary Care Nurse Name: Danay Galindo RN Position: [facility] RN Member Role: Primary Care Nurse Name: Ara De Santiago RN Position: [facility] Onco RN Member Role: Primary Care Nurse Name: Jacky Love Position: [facility] Associate Professional Member Role: Lifetime Consulting Provider Address: Address: [address] [place] [address]- Name: Micki Quezada RN Position: [facility] RN Member Role: Primary Care Nurse Name: Fatmata Alvarez RN Position: [facility] RN Member Role: Primary Care Nurse Name: Ila Hamm RN Position: [facility] RN Member Role: Primary Care Nurse Name: Owen Kuhn MD Position: [facility] Renal MD Member Role: Lifetime Consulting Physician Address: Address: [address] [place] [address] [address] [facility], [place] [address]- Name: Sharon Christopher RN Position: [facility] RN Member Role: Primary Care Nurse Name: Praveena Raymond RN Position: [facility] RN Member Role: Primary Care Nurse Name: Marcella Nichols RN Position: [facility] RN Member Role: Primary Care Nurse Name: Margaret Hurtado RN Position: [facility] RN Member Role: Primary Care Nurse Name: Noe Doyle MD Position: [facility] Renal MD Member Role: Lifetime Consulting Physician Address: Address: [address] [place] [address] [facility] [place] [address]- Name: Li Lu LPN Position: [facility] RN Member Role: Primary Care Nurse Name: Tete Rodríguez RN Position: [facility] RN Member Role: Primary Care Nurse Name: Hannah Mcintyre RN Position: [facility] RN Member Role: Primary Care Nurse Name: Tatiana Mueller RN Position: [facility] RN Member Role: Primary Care Nurse Name: Margarita Franco RN Position: [facility] RN Member Role: Primary Care Nurse Name: Nicole Pradhan RN Position: [facility] RN Member Role: Primary Care Nurse Name: Cherry Nguyen RN Position: [facility] RN Member Role: Primary Care Nurse Name: Vladimir Keys MD Position: [facility] Physician - Primary Care Member Role: PCP Address: Address: [address] [place] [address], [address] [place] [address]- [place] Name: Remedios Ramírez RN Position: [facility] RN Member Role: Primary Care Nurse Name: Ashlee Sanders RN Position: [facility] RN Member Role: Primary Care Nurse Name: Theresa Geiger RN Position: [facility] RN Member Role: Primary Care Nurse Name: Talat Saldivar RN Position: [facility] RN Member Role: Primary Care Nurse Name: Den Wilde RN Position: [facility] SN RN Member Role: Primary Care Nurse Name: Rosalino Hernadez RN Position: [facility] RN Member Role: Primary Care Nurse Name: Noemí Ny RN, I Position: [facility] RN Member Role: Primary Care Nurse Name: Chloe Prado RN Position: [facility] RN Member Role: Primary Care Nurse Care Team Related Persons Name: DESMOND MCDUFFIE Address: home [address] [address]
--- OUTSIDE RECORDS SUMMARY | 2024-01-20 06:14 | XMS_ITS | Continuity of Care Document ---
Author Organization [facility] ter Address [address] [place] [address]- Care Team Providers Care Energy Auditor Name Role Phone Vladimir Keys MD Primary Care Physician Encounter [facility] [place] Date(s): 04/22/22 - 05/09/[address] [address]- Encounter Diagnosis Anemia(Discharge Diagnosis) - 04/23/22 Discharge Disposition: A-Transfer SNF Attending Physician: Ras OLMOS, Kendra Pinedo Admitting Physician: Osmany David MD Referring Physician: Not on Staff, Referring [...] rded Medications acetaminophen 325 mg oral tablet 975 mg, Tablet, By Mouth, Every 6 hours, PRN for Temperature, please give for temp >100.4F, ROSALES, 04/22/22 23:43:00 EDT Start Date: 04/22/22 Stop Date: 05/10/22 Status: Discontinued acetaminophen 325 mg oral tablet 650 mg, [...] 12/13/21 13:59:00 EDT, Route to Pharmacy Electronically, [facility] #[id number], 180, cm, 12/13/21 12:56:00 EDT, Height, 136.6, kg, 09/08/21 16:31:00 EST, Dry... Start Date: 12/13/21 Status: Ordered B-12 1000 mcg oral tablet, extended release 1 tablet = 1,000 mcg, By Mouth, Daily, # 90 tablet, 1 Refills, Maintenance, 01/24/22 16:36:00 EDT, [facility] #[id number], 180, cm, 01/24/22 16:01:00 EDT, Height, 136.6, [...] 0 Refills, Maintenance, 12/13/21 14:03:00 EDT, Tablet, [facility] #[id number], 180, cm, 12/13/21 12:56:00 EDT, Height, 136.6, kg, 09/08/21 16:31:00 EST, Dry Weight Start Date: 12/13/21 Status: Ordered gabapentin 100 mg oral capsule 100 mg, 1, capsule, By Mouth, 2 times a day, # 60 capsule, Refills 2, Tot. Refills 2, Maintenance, 01/24/22 16:33:00 EDT, Route to Pharmacy Electronically, [facility] #[id number], 180, cm, 01/24/22 16:01:00 EDT, Height, 136.6, [...] release 150 mg, XL Tablet, By Mouth, 05/09/22 9:00:00 EDT Start Date: 05/09/22 Stop Date: 05/09/22 Status: Completed metoprolol 50 mg oral tablet, extended release 150 mg, 3, tablet, By Mouth, Daily, # 270 tablet, Refills 1, Tot. Refills 1, Maintenance, 11/27/21 12:04:00 EDT, Route to Pharmacy Electronically, [facility] #[id number], 180, cm, 09/22/21 20:27:00 EST, Height, 136.6, [...] 1:07:00 EDT, Route to Pharmacy Electronically, [facility] #[id number], 180, cm, 12/13/21 12:56:00 EDT, Height, 136.6, [...] Diagnosis Diagnosis Type Effective Dates Health Status [facility] Service Informant Anemia Discharge Diagnosis 04/23/22 Non-Specified Results Orders for Microbiology Reports Name Date Catheter Tip Culture 04/25/22 Blood Culture 04/25/22 Blood Culture #2 04/25/22 Blood Culture #2 04/23/22 Blood Culture 04/22/22 Blood Culture 04/22/22 Blood Culture #2 04/22/22 Microbiology Reports TEST:Catheter Tip Culture STATUS:Auth (Verified) BODY SITE: SOURCE:DIALYS COLLECTED DATE/TIME:04/25/22 2:10 PM Catheter Tip Culture SPECIMEN DESCRIPTION : DIALYSIS CATHETER TIP SPECIAL REQUESTS : NONE CULTURE : NO GROWTH 4 DAYS REPORT STATUS : FINAL 04/29/2022 TEST:Blood Culture STATUS:Auth (Verified) BODY SITE: SOURCE:Blood COLLECTED DATE/TIME:04/25/22 11:11 AM Blood Culture SPECIMEN DESCRIPTION : BLOOD NOSITE SPECIAL REQUESTS : NONE CULTURE : NO GROWTH 5 DAYS. REPORT STATUS : FINAL 04/30/2022 TEST:Blood Culture, Second Order STATUS:Auth (Verified) BODY SITE: SOURCE:Blood COLLECTED DATE/TIME:04/25/22 11:11 AM Blood Culture, Second Order SPECIMEN DESCRIPTION : BLOOD NOSITE SPECIAL REQUESTS : NONE CULTURE : NO GROWTH 5 DAYS. REPORT STATUS : FINAL 04/30/2022 TEST:Blood Culture, Second Order STATUS:Auth (Verified) BODY SITE: SOURCE:Blood COLLECTED DATE/TIME:04/23/22 4:10 PM Blood Culture, Second Order SPECIMEN DESCRIPTION : BLOOD NOSITE SPECIAL REQUESTS : NONE CULTURE : NO GROWTH 5 DAYS. REPORT STATUS : FINAL 04/28/2022 TEST:Blood Culture, Second Order STATUS:Auth (Verified) BODY SITE: SOURCE:Blood COLLECTED DATE/TIME:04/22/22 2:10 PM Blood Culture, Second Order SPECIMEN DESCRIPTION : BLOOD R HAND SPECIAL REQUESTS : NONE CULTURE : NO GROWTH 5 DAYS. REPORT STATUS : FINAL 04/27/2022 TEST:Blood Culture STATUS:Auth (Verified) BODY SITE: SOURCE:Blood COLLECTED DATE/TIME:04/22/22 2:07 PM Blood Culture SPECIMEN DESCRIPTION : BLOOD L AC SPECIAL REQUESTS : NONE CULTURE : NO GROWTH 5 DAYS. REPORT STATUS : FINAL 04/27/2022 TEST:Blood Culture STATUS:Auth (Verified) BODY SITE: SOURCE:Blood COLLECTED DATE/TIME:04/22/22 1:07 PM Blood Culture SPECIMEN DESCRIPTION : BLOOD R AC SPECIAL REQUESTS : CRITICAL VALUE CALLED AND VERIFIED BY READBACK FOR: GRAM POSITIVE COCCI IN BLOOD TO ED, [place] [id number] BY TECH [id number] ON 04/23/22 AT 1324. CULTURE : STAPHYLOCOCCUS EPIDERMIDIS Formerly reported as Staph species not Staph aureus. Single isolates of Staph. species, not Staph. aureus, Micrococci, Bacillus species, Diphtheroids, Cutibacterium acnes (formerly Propionibacterium acnes) and Viridans Group Streptococci could be skin contaminants. Multiple isolates of these organisms are more likely to be significant. Staphylococcus epidermidis was identified by multi-plex PCR REPORT STATUS : FINAL 04/24/2022 Radiology Reports * Exam Date Time Procedure Performing Provider Status 05/09/22 7:10 AM Chest Portable Bird , Wesley; Auth (Ve rified) Notes: (Chest Portable) Reason For Exam: pt pulled Jolley;Other: RESULT: Chest Portable Chest Portable INDICATION: pt pulled Jolley; Clinical Question(s): retained catheter / COMPARISON: 04/22/2022 FINDINGS: LINES AND TUBES: None. LUNGS AND PLEURA: Mild bibasilar atelectasis. No pleural effusion. No pneumothorax. HEART, MEDIASTINUM AND AVE: Mild prominence of the cardiac silhouette. Normal mediastinal and hilar contour. BONES AND SOFT TISSUES: No acute abnormality. Right glenohumeral osteoarthritis. IMPRESSION: No evidence of retained catheter fragment. WSN: [id number] Ordering Physician: Bryant Zabala Dictated By: Paul Roman MD Dictated Date/Time: 05/09/22 9:19 am Reviewed By: Paul Roman MD Signed By: Paul Roman MD Signed Date/Time: 05/09/22 9:19 am Transcribed By: MARIYA Transcribed Date/Time: 05/09/22 9:18 am * Exam Date Time Procedure Performing Provider Status 04/27/22 1:37 PM Calcaneus Min 2 Views Right Edwin , Irene; Auth (Verified) Notes: (Calcaneus Min 2 Views Right) Reason For Exam: wound. bacteraemia;Other: RESULT: Calcaneus Min 2 Views Right Calcaneus Min 2 Views Right Reason: Other:; wound. bacteremia; Clinical Question(s): Osteomyelitis COMPARISON: 08/15/2021 FINDINGS: No evidence of acute or healing fracture or bone lesion. Moderate plantar calcaneal spur. Mild osteoarthritis of the tibiotalar joint. Mild osteoarthritis of the talonavicular joint. No cortical destruction or demineralization to suggest advanced osteomyelitis. Small ankle joint effusion. IMPRESSION: No evidence of metastasis or osteomyelitis. Early osteomyelitis cannot be excluded. If there is high clinical suspicion, consider MRI. WSN: [id number] Ordering Physician: Kendra Mcginnis Dictated By: Miriam Brown MD Dictated Date/Time: 04/27/22 1:56 pm Reviewed By: Miriam Brown MD Signed By: Miriam Brown MD Signed Date/Time: 04/27/22 1:56 pm Transcribed By: MARIYA Transcribed Date/Time: 04/27/22 1:55 pm * Exam Date Time Procedure Performing Provider Status 04/22/22 3:06 PM Chest Single Frontal View Rosina Dick; Sara (Verified) Notes: (Chest Single Frontal View) Reason For Exam: Shortness of Breath RESULT: Chest Single Frontal View AP upright portable chest dated April 22, 2022 at 1501 hours. Comparison films are from 2021. HISTORY: Shortness of breath. FINDINGS: The cardiac silhouette is at the upper limits of normal for size. A double-lumen central venous line is been placed on the right. Using a jugular approach, the tip of the catheter overlies the cavoatrial junction. No pneumothorax is seen. No airspace infiltrate or pleural effusion is identified. Degenerative changes are noted in the spine and shoulders. IMPRESSION: Central venous line in place. No evidence of acute pulmonary disease. Examination [id number]. Thank you for allowing me to participate in the care of this patient. WSN: [id number] Ordering Physician: Jayda Cormier Dictated By: James Burnette MD Dictated Date/Time: 04/22/22 3:08 pm Reviewed By: James Burnette MD Signed By: James Burnette MD Signed Date/Time: 04/22/22 3:08 pm Transcribed By: MARIYA Transcribed Date/Time: 04/22/22 3:08 pm Vital Signs Most recent to oldest [Reference Range]: 1 2 3 Height 182.88 cm (05/09/22 12:30 PM) 182.88 cm (05/09/22 11:31 AM) 182.88 cm (05/09/22 6:23 AM) Weight 120.5 kg (04/30/22 7:48 AM) 120.5 kg (04/26/22 7:00 AM) 121.5 kg (04/25/22 5:00 AM) Oxygen Saturation [94-100 %] 97 % (05/09/22 12:30 PM) 97 % (05/09/22 11:31 AM) 92 % *L* (05/09/22 6:23 AM) Pulse Rate [55-90 bpm] 83 bpm (05/09/22 12:30 PM) 82 bpm (05/09/22 11:31 AM) 65 bpm (05/09/22 9:23 AM) Body Mass Index [18.5-24.99 kg/m2] 36.03 kg/m2 *>HHI* (04/30/22 7:48 AM) 36.03 kg/m2 *>HHI* (04/26/22 7:00 AM) 36.33 kg/m2 *>HHI* (04/25/22 5:00 AM) Blood Pressure [90-138/55-84 mm Hg] 145/72mm Hg *H* (05/09/22 12:30 PM) 126/59mm Hg (05/09/22 11:31 AM) 142/81mm Hg *H* (05/09/22 9:23 AM) Respiratory Rate [16-30 br/min] 18 br/min (05/09/22 12:30 PM) 18 br/min (05/09/22 11:31 AM) 20 br/min (05/09/22 7:16 AM) Temperature [96.8-100.4 DegF] 97.9 DegF (05/09/22 12:30 PM) 97.7 DegF (05/09/22 11:31 AM) 97.4 DegF (05/09/22 6:23 AM) Liters per Minute 3 L/min (04/30/22 3:53 PM) 2 L/min (04/30/22 12:13 PM) 3 L/min (04/30/22 10:15 AM) Mode of Delivery (Oxygen) Room air (05/09/22 12:30 PM) Room air (05/09/22 11:31 AM) Room air (05/09/22 6:23 AM) Blood pressure sites Arm, left (05/09/22 11:31 AM) Arm, right (05/09/22 6:23 AM) Arm, right (05/08/22 10:01 PM) Temperature Route Oral (05/09/22 12:30 PM) Oral (05/09/22 11:31 AM) Oral (05/09/22 6:23 AM) Dry Weight 125.1 kg (04/23/22 2:36 PM) Weight Obtained Via Bed scale (04/26/22 7:00 AM) Bed scale (04/25/22 5:00 AM) Bed scale (04/23/22 2:36 PM) Dry Weight Obtained Via Bed scale (04/23/22 2:36 PM) Social History Social History Type Response [...] Safety Implantable Status Assigning Authority Unknown Unknown [id number] Unknown 12/26/26 Unknown Unknown Active Unknown Portable XR Chest Views * [employer] , CIS S: TRANSCRIPaul Katz MD: VERIFY Event Display: Result: Authored Date: [id number] Chest Portable INDICATION: pt pulled Jolley; Clinical Question(s): retained catheter / COMPARISON: 04/22/2022 FINDINGS: LINES AND TUBES: None. LUNGS AND PLEURA: Mild bibasilar atelectasis. No pleural effusion. No pneumothorax. HEART, MEDIASTINUM AND AVE: Mild prominence of the cardiac silhouette. Normal mediastinal and hilar contour. BONES AND SOFT TISSUES: No acute abnormality. Right glenohumeral osteoarthritis. IMPRESSION: No evidence of retained catheter fragment. WSN: [id number] Ordering Physician: Bryant Zabala Dictated By: Paul Roman MD Dictated Date/Time: 05/09/22 9:19 am Reviewed By: Paul Roman MD Signed By: Paul Roamn MD Signed Date/Time: 05/09/22 9:19 am Transcribed By: MARIYA Transcribed Date/Time: 05/09/22 9:18 am XR Calcaneus - right Views * [employer] , CIS S: TRANSCRICHELI Brown MD, Miriam Garcia: VERIFY Event Display: Result: Authored Date: [id number] Calcaneus Min 2 Views Right Reason: Other:; wound. bacteremia; Clinical Question(s): Osteomyelitis COMPARISON: 08/15/2021 FINDINGS: No evidence of acute or healing fracture or bone lesion. Moderate plantar calcaneal spur. Mild osteoarthritis of the tibiotalar joint. Mild osteoarthritis of the talonavicular joint. No cortical destruction or demineralization to suggest advanced osteomyelitis. Small ankle joint effusion. IMPRESSION: No evidence of metastasis or osteomyelitis. Early osteomyelitis cannot be excluded. If there is high clinical suspicion, consider MRI. WSN: [id number] Ordering Physician: Kendra Mcginnis Dictated By: Miriam Brown MD Dictated Date/Time: 04/27/22 1:56 pm Reviewed By: Miriam Brown MD Signed By: Miriam Brown MD Signed Date/Time: 04/27/22 1:56 pm Transcribed By: MARIYA Transcribed Date/Time: 04/27/22 1:55 pm XR Chest AP * [facility] , CIS S: TRANSCRIBE James Burnette MD: VERIFY Event Display: Result: Authored Date: [id number] AP upright portable chest dated April 22, 2022 at 1501 hours. Comparison films are from 2021. HISTORY: Shortness of breath. FINDINGS: The cardiac silhouette is at the upper limits of normal for size. A double-lumen central venous line is been placed on the right. Using a jugular approach, the tip of the catheter overlies the cavoatrial junction. No pneumothorax is seen. No airspace infiltrate or pleural effusion is identified. Degenerative changes are noted in the spine and shoulders. IMPRESSION: Central venous line in place. No evidence of acute pulmonary disease. Examination 72624. Thank you for allowing me to participate in the care of this patient. WSN: [id number] Ordering Physician: Jayda Cormier Dictated By: James Burnette MD Dictated Date/Time: 04/22/22 3:08 pm Reviewed By: James Burnette MD Signed By: James Burnette MD Signed Date/Time: 04/22/22 3:08 pm Transcribed By: MARIYA Transcribed Date/Time: 04/22/22 3:08 pm Patient Care team information Personnel Name: Vladimir Keys MD Address: Address: [address] [place] [address], [address] [place], [place] [address]
--- OUTSIDE RECORDS SUMMARY | 2024-01-20 06:14 | XMS_ITS | Continuity of Care Document ---
Author Organization [facility] Address [address] [place] [address]- Care Team Providers Care Head Men'S Tennis Coach Name Role Phone Vladimir Keys MD Primary Care Physician Encounter [facility] [place] Date(s): 05/28/21 - 06/04/21 [facility] [address] [place] [address]- Attending Physician: Mallory Laurent MD Admitting Physician: Anastasiia OLMOS, Mallory Vega Referring Physician: Vladimir Keys MD Allergies, Adverse Reactions, Alerts Substance Reaction Severity Status NKA Active Immunizations Given and Recorded Vaccine Date Status Refusal Reason SARS-CoV-2 (COVID-19) mRNA BNT-162b2 vac 11/21/20 Recorded SARS-CoV-2 (COVID-19) mRNA BNT-162b2 vac 10/29/20 Recorded influenza virus vaccine, inactivated 03/05/20 Ron rded influenza virus vaccine, inactivated 03/14/17 Orn rded influenza virus vaccine, inactivated 03/31/16 Ron [...] Mouth, Daily, # 90 tablet, 0 Refills, [facility] #[id number], 174, cm, 01/19/21 13:26:00 EDT, Height, 127.5, [...] tablet, Refills 0, Route to Pharmacy Electronically, [facility] #[id number], 174, cm, 01/19/21 13:26:00 EDT, Height, 127.5, kg, 11/30/20 1:55:00 EDT, Dry Weight Start Date: 03/06/21 Status: Ordered Metoprolol Tartrate 50 mg oral tablet 1.5 tablet, By Mouth, 2 times a day, # 270 tablet, 0 Refills, [facility] #[id number], 174, cm, 01/19/21 13:26:00 EDT, Height, 127.5, [...] tablet, Refills 1, Route to Pharmacy Electronically, [facility] #[id number], 174, cm, 01/19/21 13:26:00 EDT, Height, 127.5, kg, 11/30/20 1:55:00 EDT, Dry Weight Start Date: 03/06/21 Status: Ordered torsemide 20 mg oral tablet 1 tablet, By Mouth, 2 times a day, # 180 tablet, 0 Refills, Maintenance, 11/17/20 12:34:00 EDT, [facility] #[id number], 172, cm, 05/14/20 1:37:00 EST, Height, 127, kg, 05/14/20 1:37:00 EST, Dry Weight Start Date: 11/17/20 Status: Ordered warfarin 5 mg oral tablet 2 tablet, By Mouth, Daily, # 60 tablet, 0 Refills, [facility] #[id number], 174, cm, 03/26/21 14:17:00 EDT, Height, 127.5, [...]
--- OUTSIDE RECORDS SUMMARY | 2024-01-20 06:14 | XMS_ITS | Continuity of Care Document ---
Author Organization [facility] Care Address [address] [place] [id number]- Care Team Providers Care Store Coordinator Name Role Phone Vladimir Keys MD Primary Care Physician Encounter [facility] Date(s): 11/13/21 - 12/19/21 [facility] [address] [place] [id number] Attending Physician: Jason PAIRSH, Gail Akins Admitting Physician: Jason PARISH, Gail Akins Referring Physician: Vladimir Keys MD Allergies, Adverse [...] 12/13/21 13:59:00 EDT, Route to Pharmacy Electronically, [facility] #[id number], 180, cm, 12/13/21 12:56:00 EDT, Height, 136.6, kg, 09/08/21 16:31:00 EST, Dry... Start Date: 12/13/21 Status: Ordered Aspir 81 Oral Enteric Coated Tablet 1 tablet = 81 mg, By Mouth, Daily, # 30 tablet, 0 Refills Start Date: 04/14/09 Stop Date: 05/14/09 Status: Ordered B-12 1000 mcg oral tablet, extended release 1 tablet = 1,000 mcg, By Mouth, Daily, # 30 tablet, 0 Refills, Maintenance, 12/13/21 13:57:00 EDT, [facility] #[id number], Partial fill upon patient request if the prescription is for a schedule II opioid drug., 180, cm, 12/13/21 12:56:00 EDT, Hei... Start Date: 12/13/21 Status: Ordered cephalexin monohydrate 250 mg oral capsule 1 capsule = 250 mg, By Mouth, Every 12 hours, # 180 capsule, 1 Refills, Maintenance, 12/13/21 13:55:00 EDT, Capsule, [facility] #[id number], 180, cm, 12/13/21 12:56:00 EDT, Height, 136.6, [...] 0 Refills, Maintenance, 12/13/21 14:03:00 EDT, Tablet, [facility] #[id number], 180, cm, 12/13/21 12:56:00 EDT, Height, 136.6, kg, 09/08/21 16:31:00 EST, Dry Weight Start Date: 12/13/21 Status: Ordered glipiZIDE 2.5 mg oral tablet, extended release 1 tablet = 2.5 mg, By Mouth, Daily, # 90 tablet, 0 Refills, Maintenance, 12/13/21 14:03:00 EDT, ER Tablet, [facility] #[id number], Partial fill upon patient request if the [...] 11/27/21 12:04:00 EDT, [id number], 180, cm, 09/22/21 20:27:00 EST, Height, 136.6, [...] opioid drug. Start Date: 09/06/21 Status: Ordered mupirocin 2% topical ointment 1 application, Topically, 2 times a day, for 14 days, apply to affected skin, # 30 Gm, 1 Refills, Acute 01/10/22 14:03:00 EDT, 12/13/21 14:03:00 EDT, Ointment, [facility] #[id number], 1 application Topically 2 times a day,x14 days,Instr:apply to a... Start Date: 12/13/21 Stop Date: 01/10/22 Status: Ordered simvastatin 20 mg oral tablet 1, tablet, By Mouth, Daily at bedtime, # 90 tablet, Refills 3, Tot. Refills 3, 12/14/21 1:07:00 EDT, Route to Pharmacy Electronically, [facility] #[id number], 180, cm, 12/13/21 12:56:00 EDT, Height, 136.6, [...] = 40 mg, By Mouth, Daily, # 180 tablet, 2 Refills, Maintenance, 12/13/21 13:55:00 EDT, Tablet, [facility] #[id number], 180, cm, 12/13/21 12:56:00 EDT, Height, 136.6, kg, 09/08/21 16:31:00 EST, Dry Weight Start Date: 12/13/21 Status: Ordered warfarin 5 mg oral tablet See Instructions, Take 1.5 tablets daily(7.5 mg) alternate with 2 tablets(10 mg) every othery day, # 150 tablet, 2 Refills, Maintenance, 12/13/21 14:00:00 EDT, [facility] #[id number], 180, cm, 12/13/21 12:56:00 EDT, Height, 136.6, [...]
--- OUTSIDE RECORDS SUMMARY | 2024-01-20 06:14 | XMS_ITS | Continuity of Care Document ---
Author Organization [facility] Care Address [address] [place] [id number]- Care Team Providers Care Customer Complaint Service Supervisor Name Role Phone Vladimir Keys MD Primary Care Physician [phone] Encounter [facility] Date(s): 03/05/22 - 04/04/22 W[facility] Care [address] [place] [id number] Attending Physician: Admela, Tanmay Admitting Physician: AdmtrTanmay [...] 12/13/21 13:59:00 EDT, Route to Pharmacy Electronically, [facility] #[id number], 180, cm, 12/13/21 12:56:00 EDT, Height, 136.6, [...] tablet, 1 Refills, Maintenance, 01/24/22 16:36:00 EDT, [facility] #[id number], 180, cm, 01/24/22 16:01:00 EDT, Height, 136.6, [...] 0 Refills, Maintenance, 12/13/21 14:03:00 EDT, Tablet, [facility] #[id number], 180, cm, 12/13/21 12:56:00 EDT, Height, 136.6, kg, 09/08/21 16:31:00 EST, Dry Weight Start Date: 12/13/21 Status: Ordered gabapentin 100 mg oral capsule 100 mg, 1, capsule, By Mouth, 2 times a day, # 60 capsule, Refills 2, Tot. Refills 2, Maintenance, 01/24/22 16:33:00 EDT, Route to Pharmacy Electronically, [facility] #[id number], 180, cm, 01/24/22 16:01:00 EDT, Height, 136.6, kg, 09/08/21 16:31:0... Start Date: 01/24/22 Status: Ordered glipiZIDE 2.5 mg oral tablet, extended release 1 tablet = 2.5 mg, By Mouth, Daily, # 90 tablet, 0 Refills, Maintenance, 12/13/21 14:03:00 EDT, ER Tablet, [facility] #[id number], Partial fill upon patient request if the [...] 11/27/21 12:04:00 EDT, Route to Pharmacy Electronically, [facility] #[id number], 180, cm, 09/22/21 20:27:00 EST, Height, 136.6, [...] 12/14/21 1:07:00 EDT, Route to Pharmacy Electronically, [facility] #[id number], 180, cm, 12/13/21 12:56:00 EDT, Height, 136.6, [...] Team Personnel Name: Vladimir Keys MD Address: [address] [place] [address], [address] [place] [id number]
--- OUTSIDE RECORDS SUMMARY | 2024-01-20 06:14 | XMS_ITS | Continuity of Care Document ---
Author Organization [facility] Infectious Disease Address [address] [place] [id number]- Care Team Providers Care Face Worker Name Role Phone Vladimir Keys MD Primary Care Physician Encounter [facility] Date(s): 09/24/21 - 10/24/21 [facility] [address] [place] [id number] Allergies, Adverse Reactions, Alerts No Known Allergies [...] 1, Route to Pharmacy Electronically, [facility] #[id number], 174, cm, 01/19/21 13:26:00 EDT, Height, 127.5, [...]
--- OUTSIDE RECORDS SUMMARY | 2024-01-20 06:14 | XMS_ITS | Continuity of Care Document ---
Author Organization [facility] Infectious Disease Address [address] [place] [id number]- Care Team Providers Care Analytical Research Program Manager Name Role Phone Vladimir Keys MD Primary Care Physician Encounter [facility] Date(s): 05/21/22 - 06/20/22 [facility] Infectious Disease [address] [place] [id number] Attending Physician: Admtr, Tanmay Admitting Physician: Admtr, Ar8 Referring Physician: Admtr, [...] 12/13/21 13:59:00 EDT, Route to Pharmacy Electronically, [facility] #[id number], 180, cm, 12/13/21 12:56:00 EDT, Height, 136.6, kg, 09/08/21 16:31:00 EST, Dry... Start Date: 12/13/21 Status: Ordered B-12 1000 mcg oral tablet, extended release 1 tablet = 1,000 mcg, By Mouth, Daily, # 90 tablet, 1 Refills, Maintenance, 01/24/22 16:36:00 EDT, [facility] #[id number], 180, cm, 01/24/22 16:01:00 EDT, Height, 136.6, [...] 0 Refills, Maintenance, 12/13/21 14:03:00 EDT, Tablet, [facility] #[id number], 180, cm, 12/13/21 12:56:00 EDT, Height, 136.6, kg, 09/08/21 16:31:00 EST, Dry Weight Start Date: 12/13/21 Status: Ordered gabapentin 100 mg oral capsule 100 mg, 1, capsule, By Mouth, 2 times a day, # 60 capsule, Refills 2, Tot. Refills 2, Maintenance, 01/24/22 16:33:00 EDT, Route to Pharmacy Electronically, [id number], 180, cm, 01/24/22 16:01:00 EDT, Height, 136.6, [...] 11/27/21 12:04:00 EDT, Route to Pharmacy Electronically, [facility][id number], 180, cm, 09/22/21 20:27:00 EST, Height, 136.6, [...] 12/14/21 1:07:00 EDT, Route to Pharmacy Electronically, [facility] #[id number], 180, cm, 12/13/21 12:56:00 EDT, Height, 136.6, [...] Safety Implantable Status Assigning Authority Unknown Unknown [id number] Unknown 12/26/26 Unknown Unknown Active Unknown Patient Care team information Care Team Personnel Name: Kaitlyn De La Paz RN Position: [facility] RN Member Role: Primary Care Nurse Name: Purnima Esposito RN Position: [facility] RN Member Role: Primary Care Nurse Name: Tran Ireland RN Position: [facility] RN Member Role: Primary Care Nurse Name: Rebeka Dunbar RN Position: [facility] RN Member Role: Primary Care Nurse Name: Mary Beth Argueta RN Position: [facility] RN Member Role: Primary Care Nurse Name: Rosalinda Espinoza RN Position: [facility] RN Member Role: Primary Care Nurse Name: Natalee Farrell RN Position: [facility] RN Member Role: Primary Care Nurse Name: Liz Melara RN Position: [facility] RN Member Role: Primary Care Nurse Name: Vanesa Jo RN Position: [facility] RN Member Role: Primary Care Nurse Name: Jasmeet Del Castillo RN Position: [facility] RN Member Role: Primary Care Nurse Name: Ruby Rojas RN Position: [facility] RN Member Role: Primary Care Nurse Name: Harleen Clark RN Position: [facility] RN Member Role: Primary Care Nurse Name: Roger Romero RN Position: [facility] RN Member Role: Primary Care Nurse Name: Manasa Weinstein RN Position: [facility] RN Member Role: Primary Care Nurse Name: Reina Romeo RN Position: [facility] RN Member Role: Primary Care Nurse Name: Mark Ruffin Position: [facility] RN Member Role: Primary Care Nurse Name: Albertina Acevedo RN Position: [facility] RN Member Role: Primary Care Nurse Name: Diana Patton RN Position: [facility] RN Member Role: Primary Care Nurse Name: Imelda Brand RN Position: [facility] RN Member Role: Primary Care Nurse Name: Joao Downs RN Position: [facility] RN Member Role: Primary Care Nurse Name: Mitzy Mora Position: [facility] RN Member Role: Primary Care Nurse Name: Ward Alcantar RN Position: [facility] RN Member Role: Primary Care Nurse Name: Karla Holder RN Position: [facility] RN Member Role: Primary Care Nurse Name: Eric Aceves III, RN Position: [facility] RN Member Role: Primary Care Nurse Name: Danay Galindo RN Position: [facility] RN Member Role: Primary Care Nurse Name: Ara De Santiago RN Position: [facility] Onco RN Member Role: Primary Care Nurse Name: Li De Santiago RN Position: [facility] RN Member Role: Primary Care Nurse Name: Jacky Love Position: [facility] Associate Professional Member Role: Lifetime Consulting Provider Address: Address: [address] [place] [address] Name: Micki Quezada RN Position: [facility] RN Member Role: Primary Care Nurse Name: Fatmata Alvarez RN Position: [facility] RN Member Role: Primary Care Nurse Name: Ila Hamm RN Position: [facility] RN Member Role: Primary Care Nurse Name: Rocio Bird RN Position: [facility] RN Member Role: Primary Care Nurse Name: Owen Kuhn MD Position: [facility] Renal MD Member Role: Lifetime Consulting Physician Address: Address: [address] [place] [address] [address] [facility] [address] Name: Sharon Christopher RN Position: [facility] RN Member Role: Primary Care Nurse Name: Praveena Raymond RN Position: [facility] RN Member Role: Primary Care Nurse Name: Carla Pickett RN Position: S RN Member Role: Primary Care Nurse Name: Marcella Nichols RN Position: [facility] RN Member Role: Primary Care Nurse Name: Margaret Hurtado RN Position: S RN Member Role: Primary Care Nurse Name: Everett Marcelo RN Position: [facility] RN Member Role: Primary Care Nurse Name: Noe Doyle MD Position: [facility] Renal MD Member Role: Lifetime Consulting Physician Address: Address: [address] [place] [address] [facility] [place] [address]- Name: Li Lu LPN Position: [facility] RN Member Role: Primary Care Nurse Name: Odalis Herrera Position: [facility] RN Member Role: Primary Care Nurse Name: Tete Rodríguez RN Position: [facility] RN Member Role: Primary Care Nurse Name: Hannah Mcintyre RN Position: [facility] RN Member Role: Primary Care Nurse Name: Margarita Franco RN Position: [facility] RN Member Role: Primary Care Nurse Name: Cherry Nguyen RN Position: [facility] RN Member Role: Primary Care Nurse Name: Theresa Robison RN Position: [facility] RN Member Role: Primary Care Nurse Name: Vladimir Keys MD Position: [facility] Primary Care Physician Member Role: PCP Address: Address: [address] [place] [address], [facility] [address] [place] [address]- Name: Remedios Ramírez RN Position: [facility] RN Member Role: Primary Care Nurse Name: Ashlee Sanders RN Position: [facility] RN Member Role: Primary Care Nurse Name: Theresa Geiger RN Position: [facility] RN Member Role: Primary Care Nurse Name: Danay Banegas RN Position: [facility] RN Member Role: Primary Care Nurse Name: Talat Saldivar RN Position: [facility] RN Member Role: Primary Care Nurse Name: Den Wilde RN Position: [facility] SN RN Member Role: Primary Care Nurse Name: Rosalino Hernadez RN Position: [facility] RN Member Role: Primary Care Nurse Name: Chloe Prado Position: [facility] RN Member Role: Primary Care Nurse Care Team Related Persons Name: DESMOND MCDUFFIE Address: home [address] [place] [address]
--- OUTSIDE RECORDS SUMMARY | 2024-01-20 06:15 | XMS_ITS | Continuity of Care Document ---
Author Organization [facility] ter Address [address] [place] [id number]- Care Team Providers Care Importer Exporter Name Role Phone Vladimir Keys MD Primary Care Physician [phone] Encounter [facility] Date(s): 04/05/22 - 04/11/[address] [address] Encounter Diagnosis Gout(Discharge Diagnosis) - 04/05/22 Anemia(Discharge Diagnosis) - 04/05/22 Discharge Disposition: A-Transfer SNF Attending Physician: Nahun OLMOS, Justen Admitting Physician: Monserrat Vallejo MD Referring Physician: Not on Staff, Referring [...] 12/13/21 13:59:00 EDT, Route to Pharmacy Electronically, [facility] #[id number], 180, cm, 12/13/21 12:56:00 EDT, Height, 136.6, kg, 09/08/21 16:31:00 EST, Dry... Start Date: 12/13/21 Status: Ordered B-12 1000 mcg oral tablet, extended release 1 tablet = 1,000 mcg, By Mouth, Daily, # 90 tablet, 1 Refills, Maintenance, 01/24/22 16:36:00 EDT, [facility] #[id number], 180, cm, 01/24/22 16:01:00 EDT, Height, 136.6, [...] 0 Refills, Maintenance, 12/13/21 14:03:00 EDT, Tablet, [facility] #[id number], 180, cm, 12/13/21 12:56:00 EDT, Height, 136.6, kg, 09/08/21 16:31:00 EST, Dry Weight Start Date: 12/13/21 Status: Ordered gabapentin 100 mg oral capsule 100 mg, Capsule, By Mouth, 04/11/22 9:00:00 EDT Start Date: 04/11/22 Stop Date: 04/11/22 Status: Completed gabapentin 100 mg oral capsule 100 mg, 1, capsule, By Mouth, 2 times a day, # 60 capsule, Refills 2, Tot. Refills 2, Maintenance, 01/24/22 16:33:00 EDT, Route to Pharmacy Electronically, [facility] #[id number], 180, cm, 01/24/22 16:01:00 EDT, Height, 136.6, kg, 09/08/21 16:31:0... Start Date: 01/24/22 Status: Ordered glipiZIDE 2.5 mg oral tablet, extended release 1 tablet = 2.5 mg, By Mouth, Daily, # 90 tablet, 0 Refills, Maintenance, 12/13/21 14:03:00 EDT, ER Tablet, [facility] #[id number], Partial fill upon patient request if the [...] release 150 mg, XL Tablet, By Mouth, 04/11/22 9:00:00 EDT Start Date: 04/11/22 Stop Date: 04/11/22 Status: Completed metoprolol 50 mg oral tablet, extended release 150 mg, 3, tablet, By Mouth, Daily, # 270 tablet, Refills 1, Tot. Refills 1, Maintenance, 11/27/21 12:04:00 EDT, Route to Pharmacy Electronically, [facility] #[id number], 180, cm, 09/22/21 20:27:00 EST, Height, 136.6, kg, 09/08/21 16:31:00 EST, [facility]. Start Date: 11/27/21 Status: Ordered Multivit Therapeutic/Minerals [...] opioid drug. Start Date: 03/29/22 Status: Ordered Santyl 250 u/gm ointment 1 application, Topically, Daily, # 15 Gm, 0 Refills, Maintenance, 04/06/22 15:05:00 EDT, Ointment, Partial fill upon patient request if the prescription is for a schedule II opioid drug. Start Date: 04/06/22 Status: Ordered simvastatin 20 mg oral tablet 1, tablet, By Mouth, Daily at bedtime, # 90 tablet, Refills 3, Tot. Refills 3, 12/14/21 1:07:00 EDT, Route to Pharmacy Electronically, [facility] #[id number], 180, cm, 12/13/21 12:56:00 EDT, Height, 136.6, [...] capsule = 125 mg, By Mouth, Every 12 hours, would keep him on prophylactic dose 1 week after completion of Abx.Please continue PO vancomycin 1 week after 04/16/2022, 0 Refills, Maintenance, 03/29/22 12:55:00 EDT, Capsule Start Date: 03/29/22 Status: Ordered [...] drug. Start Date: 02/04/22 Status: Ordered warfarin 7.5 mg oral tablet 2 tablet = 15 mg, By Mouth, Daily, 0 Refills, Maintenance, 04/11/22 11:04:00 EDT, Tablet, Partial fill upon patient request if the prescription is for a schedule II opioid drug. Start Date: 04/11/22 Status: Ordered Problem List Condition Confirmation Course [...] Dates Health Status [facility] Service Informant Gout Discharge Diagnosis 04/05/22 Non-Specified Anemia Discharge Diagnosis 04/05/22 Non-Specified Results Orders for Microbiology Reports Name Date Urine Culture (URINE CULTURE) 04/04/22 Blood Culture 04/04/22 Blood Culture #2 04/04/22 Microbiology Reports TEST:Urine Culture STATUS:Auth (Verified) BODY SITE: SOURCE:URINE COLLECTED DATE/TIME:04/04/22 7:43 PM Urine Culture SPECIMEN DESCRIPTION : URINE SPECIAL REQUESTS : NONE CULTURE : <10,000 COL/ML REPORT STATUS : FINAL 04/06/2022 TEST:Blood Culture, Second Order STATUS:Auth (Verified) BODY SITE: SOURCE:Blood COLLECTED DATE/TIME:04/04/22 5:59 PM Blood Culture, Second Order SPECIMEN DESCRIPTION : BLOOD L HAND SPECIAL REQUESTS : NONE CULTURE : NO GROWTH 5 DAYS. REPORT STATUS : FINAL 04/09/2022 TEST:Blood Culture STATUS:Auth (Verified) BODY SITE: SOURCE:Blood COLLECTED DATE/TIME:04/04/22 5:41 PM Blood Culture SPECIMEN DESCRIPTION : BLOOD L FORE ARM SPECIAL REQUESTS : NONE CULTURE : NO GROWTH 5 DAYS. REPORT STATUS : FINAL 04/09/2022 Radiology Reports * Exam Date Time Procedure Performing Provider Status 04/08/22 1:35 PM C-Arm < 1 Hour Mitzy Dunn; Auth ( Verified) Notes: (C-Arm < 1 Hour) Reason For Exam: hemo cath placement RESULT: C-Arm < 1 Hour C-Arm < 1 Hour INDICATION: Reason: hemo cath placement COMPARISONS: None TECHNIQUE: Fluoroscopy support was provided. There was no radiologist in attendance. FLUOROSCOPY TIME: 3 seconds TECHNOLOGIST TIME: 15 hours FINDINGS: Fluoroscopy support was provided. There was no radiologist in attendance. IMPRESSION: See above. WSN: [id number] Ordering Physician: Stephon Serrano Dictated By: James Burnette MD Dictated Date/Time: 04/09/22 9:36 am Reviewed By: James Burnette MD Signed By: James Burnette MD Signed Date/Time: 04/09/22 9:36 am Transcribed By: MARIYA Transcribed Date/Time: 04/08/22 8:58 pm * Exam Date Time Procedure Performing Provider Status 04/04/22 8:57 PM Chest Portable Ladarius Gomez; Auth (Ve rified) Notes: (Chest Portable) Reason For Exam: Shortness of Breath RESULT: Chest Portable Chest Portable REASON: Shortness of Breath; Clinical Question(s): CHF Hx of Present Illness: pt presented from [facility] with new onset AMS. Pt pulled out PICC line attempted to pull out dialysis port. Pt is A Ox3 in ED. is currently taking abx for reported c-diff infection.; COMPARISON: Multiple priors, most recent 03/02/2022. Intraoperative images on 03/22/2022, 03/12/2022. FINDINGS: LINES AND TUBES: Retraction of the left IJ dialysis catheter, tip now overlying the left brachiocephalic vein. Right IJ central venous catheter tip at the cavoatrial junction. LUNGS AND PLEURA: Clear lungs. Normal pulmonary vascularity. No pleural effusion. No pneumothorax. HEART, MEDIASTINUM AND AVE: Heart is normal in size. Normal mediastinal and hilar contour. Aortic valve replacement. BONES AND SOFT TISSUES: No acute abnormality. IMPRESSION: The left IJ dialysis catheter has been retracted, tip now overlying the left brachiocephalic vein. Right IJ central venous catheter tip remains in satisfactory position. I have personally reviewed the images and I agree with this report. WSN: [id number] Ordering Physician: Albertina Tovar Dictated By: Noe Fung DO Dictated Date/Time: 04/04/22 9:14 pm Reviewed By: Naresh Thompson MD Signed By: Naresh Thompson MD Signed Date/Time: 04/04/22 9:19 pm Transcribed By: MARIYA Transcribed Date/Time: 04/04/22 9:02 pm Vital Signs Most recent to oldest [Reference Range]: 1 2 3 Height 184 cm (04/11/22 8:34 AM) 184 cm (04/10/22 11:34 PM) 184 cm (04/10/22 11:01 PM) Weight 123.1 kg (04/08/22 10:34 AM) 123.1 kg (04/06/22 4:27 PM) Oxygen Saturation [94-100 %] 95 % (04/11/22 10:00 AM) 99 % (04/11/22 8:34 AM) 98 % (04/10/22 11:01 PM) Pulse Rate [55-90 bpm] 97 bpm *H* (04/11/22 10:00 AM) 100 bpm *H* (04/11/22 9:21 AM) 100 bpm *H* (04/11/22 8:34 AM) Body Mass Index [18.5-24.99 kg/m2] 36.36 kg/m2 *>HHI* (04/08/22 10:34 AM) 36.36 kg/m2 *>HHI* (04/06/22 4:27 PM) Blood Pressure [90-138/55-84 mm Hg] 127/68mm Hg (04/11/22 10:00 AM) 109/78mm Hg (04/11/22 9:21 AM) 109/78mm Hg (04/11/22 8:34 AM) Respiratory Rate [16-30 br/min] 18 br/min (04/11/22 10:00 AM) 18 br/min (04/11/22 9:21 AM) 18 br/min (04/11/22 8:34 AM) Temperature [96.8-100.4 DegF] 98.4 DegF (04/11/22 10:00 AM) 97.9 DegF (04/11/22 8:34 AM) 98.0 DegF (04/10/22 11:01 PM) Liters per Minute 5 L/min (04/08/22 1:30 PM) Mode of Delivery (Oxygen) Room air (04/11/22 10:00 AM) Room air (04/11/22 8:34 AM) Room air (04/10/22 11:01 PM) Blood pressure sites Arm, right (04/11/22 10:00 AM) Arm, left (04/11/22 8:34 AM) Arm, right (04/10/22 11:34 PM) Temperature Route Oral (04/11/22 10:00 AM) Oral (04/11/22 8:34 AM) Oral (04/10/22 11:01 PM) Dry Weight 1 kg (04/06/22 4:27 PM) Social History Social History Type Response [...] Safety Implantable Status Assigning Authority Unknown Unknown [id number] Unknown 12/26/26 Unknown Unknown Active Unknown Note * LOREN Damico S: James Rasheed MD: VERIFY Event Display: Result: Authored Date: [id number] C-Arm < 1 Hour INDICATION: Reason: hemo cath placement COMPARISONS: None TECHNIQUE: Fluoroscopy support was provided. There was no radiologist in attendance. FLUOROSCOPY TIME: 3 seconds TECHNOLOGIST TIME: 15 hours FINDINGS: Fluoroscopy support was provided. There was no radiologist in attendance. IMPRESSION: See above. WSN: [id number] Ordering Physician: Stephon Serrano Dictated By: James Burnette MD Dictated Date/Time: 04/09/22 9:36 am Reviewed By: James Burnette MD Signed By: James Burnette MD Signed Date/Time: 04/09/22 9:36 am Transcribed By: MARIYA Transcribed Date/Time: 04/08/22 8:58 pm Portable XR Chest Views * LOREN Damico S: Naresh Montanez MD: VERIFY Noe Fung DO: SIGN Event Display: Result: Authored Date: [id number] Chest Portable REASON: Shortness of Breath; Clinical Question(s): CHF Hx of Present Illness: pt presented from [facility] with new onset AMS. Pt pulled out PICC line attempted to pull out dialysis port. Pt is A Ox3 in ED. is currently taking abx for reported c-diff infection.; COMPARISON: Multiple priors, most recent 03/02/2022. Intraoperative images on 03/22/2022, 03/12/2022. FINDINGS: LINES AND TUBES: Retraction of the left IJ dialysis catheter, tip now overlying the left brachiocephalic vein. Right IJ central venous catheter tip at the cavoatrial junction. LUNGS AND PLEURA: Clear lungs. Normal pulmonary vascularity. No pleural effusion. No pneumothorax. HEART, MEDIASTINUM AND AVE: Heart is normal in size. Normal mediastinal and hilar contour. Aortic valve replacement. BONES AND SOFT TISSUES: No acute abnormality. IMPRESSION: The left IJ dialysis catheter has been retracted, tip now overlying the left brachiocephalic vein. Right IJ central venous catheter tip remains in satisfactory position. I have personally reviewed the images and I agree with this report. WSN: [id number] Ordering Physician: Albertina Tovar Dictated By: Noe Fung DO Dictated Date/Time: 04/04/22 9:14 pm Reviewed By: Naresh Thompson MD Signed By: Naresh Thompson MD Signed Date/Time: 04/04/22 9:19 pm Transcribed By: MARIYA Transcribed Date/Time: 04/04/22 9:02 pm Patient Care team information Personnel Name: Vladimir Keys MD Address: Address: [address] [place] [address], [address] [place], [place] [address]
--- OUTSIDE RECORDS SUMMARY | 2024-01-20 06:15 | XMS_ITS | Continuity of Care Document ---
Author Organization [facility] Address [address] [place] [address]- Care Team Providers Care Parts Sales Counterperson Name Role Phone Vladimir Keys MD Primary Care Physician [phone] Encounter [facility] ACCT R [id number] Date(s): 11/15/22 - 12/22/22 [facility] [address] [place] [id number] Attending Physician: Kelton Boswell MD Admitting Physician: Kelton Boswell MD Referring Physician: Vladimir Kyes MD Allergies, Adverse Reactions, Alerts Substance Reaction [...] Refills, Maintenance, 07/23/22 16:50:00 EST, [facility] #[id number], 182.88, cm, 05/09/22 12:50:00 EDT, Height, 125.1, [...] 1 Refills, Maintenance, 10/21/22 10:07:00 EDT, Capsule, [facility][id number], 177.8, cm, 10/21/22 7:55:00 EDT, Height, 106.6, [...] 12/20/22 11:55:00 EDT, Route to Pharmacy Electronically, [facility] #[id number], 177.8, cm, 10/21/22 11:06:00 EDT, Height, 106.6, [...] 07/23/22 16:50:00 EST, Route to Pharmacy Electronically, [facility] #[id number], 182.88, cm, 05/09/22 12:50:00 EDT, Height, 125.1, [...] EDT, Route to Pharmacy Electronically, [facility] #[id number], 177.8, cm, 10/21/22 11:06:00 EDT, Height, 106.6, kg, 10/18/22 3:46:00 EDT, Dry Weight Start Date: 12/19/22 Status: Ordered warfarin 5 mg oral tablet See Instructions, TAKE 1.5 TABLETS(7.5MG) BY MOUTH EVERY DAY ALTERNATE WITH 2 TABLETS(10MG) EVERY OTHER DAY, # 150 tablet, 0 Refills, Maintenance, 12/20/22 11:55:00 EDT, [facility] #[id number], 177.8, cm, 10/21/22 11:06:00 EDT, Height, 106.6, [...] Safety Implantable Status Assigning Authority Unknown Unknown [id number] Unknown 12/26/26 Unknown Unknown Active Unknown Patient Care team information Care Team Personnel Name: Kaitlyn De La Paz RN Position: [facility] RN Member Role: Primary Care Nurse Name: Purnima Esposito RN Position: [facility] RN Member Role: Primary Care Nurse Name: Tran Ireland RN Position: [facility] RN Member Role: Primary Care Nurse Name: Rebeka Dunbar RN Position: [facility] RN Member Role: Primary Care Nurse Name: Mary Beth Argueta RN Position: [facility] SN RN Member Role: Primary Care Nurse Name: Rosalinda Espinoza RN Position: [facility] RN Member Role: Primary Care Nurse Name: Carla Reid RN Position: [facility] SN RN Member Role: Primary Care Nurse Name: Natalee Farrell RN Position: [facility] RN Member Role: Primary Care Nurse Name: Jasmeet Del Castillo RN Position: [facility] RN Member Role: Primary Care Nurse Name: Ruby Rojas RN Position: [facility] RN Member Role: Primary Care Nurse Name: Harleen Clark RN Position: [facility] AMB Nurse Member Role: Primary Care Nurse Name: Roger Romero RN Position: [facility] RN Member Role: Primary Care Nurse Name: Manasa Weinstein RN Position: [facility] RN Member Role: Primary Care Nurse Name: Tessa Hines RN Position: [facility] RN Member Role: Primary Care Nurse Name: Reina Romeo RN Position: [facility] RN Member Role: Primary Care Nurse Name: Mark Ruffin Position: [facility] RN Member Role: Primary Care Nurse Name: Diana Patton RN Position: [facility] RN Member Role: Primary Care Nurse Name: Imelda Brand RN Position: [facility] RN Member Role: Primary Care Nurse Name: Joao Downs RN Position: [facility] RN Member Role: Primary Care Nurse Name: Mitzy Mora Position: [facility] RN Member Role: Primary Care Nurse Name: Ward Alcantar RN Position: [facility] RN Member Role: Primary Care Nurse Name: Karla Holder RN Position: [facility] RN Member Role: Primary Care Nurse Name: Eric Aceves III, RN Position: [facility] RN Member Role: Primary Care Nurse Name: Danay Galindo RN Position: [facility] RN Member Role: Primary Care Nurse Name: Ara De Santiago RN Position: [facility] Onco RN Member Role: Primary Care Nurse Name: Jacky Love Position: [facility] Associate Professional Member Role: Lifetime Consulting Provider Address: Address: [address] [place] [address] Name: Micki Quezada RN Position: [facility] RN Member Role: Primary Care Nurse Name: Fatmata Alvarez RN Position: [facility] RN Member Role: Primary Care Nurse Name: Ila Hamm RN Position: [facility] RN Member Role: Primary Care Nurse Name: Owen Kuhn MD Position: [facility] Renal MD Member Role: Lifetime Consulting Physician Address: Address: [address] [place] [address] [address] [facility] [place] [address]- Name: Sharon Christopher RN Position: [facility] RN Member Role: Primary Care Nurse Name: Praveena Raymond RN Position: [facility] RN Member Role: Primary Care Nurse Name: Marcella Nichols RN Position: [facility] RN Member Role: Primary Care Nurse Name: Margaret Hurtado RN Position: [facility] SN RN Member Role: Primary Care Nurse Name: Noe Doyle MD Position: [facility] Renal MD Member Role: Lifetime Consulting Physician Address: Address: [address] [place] [address] [facility] [place] [address]- Name: Li Lu LPN Position: [facility] RN Member Role: Primary Care Nurse Name: Tete Rodríguez RN Position: [facility] RN Member Role: Primary Care Nurse Name: Hannah Mcintyre RN Position: [facility] RN Member Role: Primary Care Nurse Name: Tatiana Mueller RN Position: [facility] RN Member Role: Primary Care Nurse Name: Margarita Franco RN Position: [facility] RN Member Role: Primary Care Nurse Name: Nicole Pradhan RN Position: [facility] RN Member Role: Primary Care Nurse Name: Cherry Nguyen RN Position: [facility] RN Member Role: Primary Care Nurse Name: Vladimir Keys MD Position: [facility] Physician - Primary Care Member Role: PCP Address: Address: [address] [place] [address], [address] [place] [address]- [place] Name: Remedios Ramírez RN Position: [facility] RN Member Role: Primary Care Nurse Name: Ashlee Sanders RN Position: [facility] RN Member Role: Primary Care Nurse Name: Theresa Geiger RN Position: [facility] RN Member Role: Primary Care Nurse Name: Talat Saldivar RN Position: [facility] RN Member Role: Primary Care Nurse Name: Andry RNDen Position: [facility] SN RN Member Role: Primary Care Nurse Name: Rosalino Hernadez RN Position: [facility] RN Member Role: Primary Care Nurse Name: Noemí Ny RN, I Position: [facility] RN Member Role: Primary Care Nurse Name: Chloe Prado RN Position: [facility] RN Member Role: Primary Care Nurse Care Team Related Persons Name: DESMOND MCDUFFIE Address: [address] [place] [address]
--- OUTSIDE RECORDS SUMMARY | 2024-01-20 06:15 | XMS_ITS | Continuity of Care Document ---
Author Organization Wound Care Address [address] [place] [id number]- Care Team Providers Care Refining Equipment Operator Name Role Phone Vladimir Keys MD Primary Care Physician [place] [facility] [place] 11/20/22 - 12/26/22 Wound Care [address] [place] [id number]- Attending Physician: Kendra Padilla MD Admitting Physician: Kendra Padilla MD Referring Physician: Vladimir Keys MD [...] Refills, Maintenance, 07/23/22 16:50:00 EST, [facility] #[id number], 182.88, cm, 05/09/22 12:50:00 EDT, Height, 125.1, [...] 1 Refills, Maintenance, 10/21/22 10:07:00 EDT, Capsule, [facility] #[id number], 177.8, cm, 10/21/22 7:55:00 EDT, Height, 106.6, [...] 12/20/22 11:55:00 EDT, Route to Pharmacy Electronically, [facility] #[id number], 177.8, cm, 10/21/22 11:06:00 EDT, Height, 106.6, [...] 07/23/22 16:50:00 EST, Route to Pharmacy Electronically, [facility] #[id number], 182.88, cm, 05/09/22 12:50:00 EDT, Height, 125.1, [...] EDT, Route to Pharmacy Electronically, [facility] #[id number], 177.8, cm, 10/21/22 11:06:00 EDT, Height, 106.6, kg, 10/18/22 3:46:00 EDT, Dry Weight Start Date: 12/19/22 Status: Ordered warfarin 5 mg oral tablet See Instructions, TAKE 1.5 TABLETS(7.5MG) BY MOUTH EVERY DAY ALTERNATE WITH 2 TABLETS(10MG) EVERY OTHER DAY, # 150 tablet, 0 Refills, Maintenance, 12/20/22 11:55:00 EDT, [facility] #[id number], 177.8, cm, 10/21/22 11:06:00 EDT, Height, 106.6, [...] Safety Implantable Status Assigning Authority Unknown Unknown [id number] Unknown 12/26/26 Unknown Unknown Active Unknown Patient Care team information Care Team Personnel Name: Kaitlyn De La Paz RN Position: [facility] RN Member Role: Primary Care Nurse Name: Purnima Esposito RN Position: [facility] RN Member Role: Primary Care Nurse Name: Tran Ireland RN Position: [facility] RN Member Role: Primary Care Nurse Name: Rebeka Dunbar RN Position: [facility] RN Member Role: Primary Care Nurse Name: Mary Beth Argueta RN Position: [facility] SN RN Member Role: Primary Care Nurse Name: Rosalinda Espinoza RN Position: [facility] RN Member Role: Primary Care Nurse Name: Carla Reid RN Position: [facility] SN RN Member Role: Primary Care Nurse Name: Natalee Farrell RN Position: [facility] RN Member Role: Primary Care Nurse Name: Jasmeet Del Castillo RN Position: [facility] RN Member Role: Primary Care Nurse Name: Ruby Rojas RN Position: [facility] RN Member Role: Primary Care Nurse Name: Harleen Clark RN Position: [facility] AMB Nurse Member Role: Primary Care Nurse Name: Roger Romero RN Position: [facility] RN Member Role: Primary Care Nurse Name: Manasa Weinstein RN Position: [facility] RN Member Role: Primary Care Nurse Name: Tessa Hines RN Position: [facility] RN Member Role: Primary Care Nurse Name: Reina Romeo RN Position: [facility] RN Member Role: Primary Care Nurse Name: Mark Ruffin Position: [facility] RN Member Role: Primary Care Nurse Name: Diana Patton RN Position: [facility] RN Member Role: Primary Care Nurse Name: Imelda Brand RN Position: [facility] RN Member Role: Primary Care Nurse Name: Joao Downs RN Position: [facility] RN Member Role: Primary Care Nurse Name: Mitzy Mora Position: [facility] RN Member Role: Primary Care Nurse Name: Ward Alcantar RN Position: [facility] RN Member Role: Primary Care Nurse Name: Karla Holder RN Position: [facility] RN Member Role: Primary Care Nurse Name: Eric Aceves III, RN Position: [facility] RN Member Role: Primary Care Nurse Name: Danay Galindo RN Position: [facility] RN Member Role: Primary Care Nurse Name: Ara De Santiago RN Position: [facility] Onco RN Member Role: Primary Care Nurse Name: Jacky Love Position: [facility] Associate Professional Member Role: Lifetime Consulting Provider Address: Address: [address] [place] [address]- Name: Micki Quezada RN Position: [facility] RN Member Role: Primary Care Nurse Name: Fatmata Alvarez RN Position: [facility] RN Member Role: Primary Care Nurse Name: Ila Hamm RN Position: [facility] RN Member Role: Primary Care Nurse Name: Owen Kuhn MD Position: [facility] Renal MD Member Role: Lifetime Consulting Physician Address: Address: [address] [place] [address] [address] [facility] [place] [address]- Name: Sharon Christopher RN Position: [facility] RN Member Role: Primary Care Nurse Name: Praveena Raymond RN Position: [facility] RN Member Role: Primary Care Nurse Name: Marcella Nichols RN Position: [facility] RN Member Role: Primary Care Nurse Name: Margaret Hurtado RN Position: [facility] SN RN Member Role: Primary Care Nurse Name: Noe Doyle MD Position: [facility] Renal MD Member Role: Lifetime Consulting Physician Address: Address: [address] [place] [address] [facility] [place] [address]- Name: Li Lu LPN Position: [facility] RN Member Role: Primary Care Nurse Name: Tete Rodríguez RN Position: [facility] RN Member Role: Primary Care Nurse Name: Hannah Mcintyre RN Position: [facility] RN Member Role: Primary Care Nurse Name: Tatiana Mueller RN Position: [facility] RN Member Role: Primary Care Nurse Name: Margarita Franco RN Position: [facility] RN Member Role: Primary Care Nurse Name: Nicole Pradhan RN Position: [facility] RN Member Role: Primary Care Nurse Name: Cherry Nguyen RN Position: [facility] RN Member Role: Primary Care Nurse Name: Vladimir Keys MD Position: [facility] Physician - Primary Care Member Role: PCP Address: Address: [address] [place] [address], [address] [place] [address]- [place] Name: Remedios Ramírez RN Position: [facility] RN Member Role: Primary Care Nurse Name: Ashlee Sanders RN Position: [facility] RN Member Role: Primary Care Nurse Name: Theresa Geiger RN Position: [facility] RN Member Role: Primary Care Nurse Name: Talat Saldivar RN Position: [facility] RN Member Role: Primary Care Nurse Name: Den Wilde RN Position: [facility] SN RN Member Role: Primary Care Nurse Name: Rosalino Hernadez RN Position: [facility] RN Member Role: Primary Care Nurse Name: Noemí Ny RN, I Position: [facility] RN Member Role: Primary Care Nurse Name: Chloe Prado RN Position: [facility] RN Member Role: Primary Care Nurse Care Team Related Persons Name: DESMOND MCDUFFIE Address: [address] [place] [address]
--- OUTSIDE RECORDS SUMMARY | 2024-01-20 06:15 | XMS_ITS | Continuity of Care Document ---
Author Organization Wound Care Address [address] [place] [id number]- Care Team Providers Care Smoke Jumper Supervisor Name Role Phone Vladimir Keys MD Primary Care Physician [place] [facility] [place] 11/09/21 - 12/13/21 Wound Care [address] [place] [id number] Attending Physician: Jason PARISH, Gail Akins [...] 12/13/21 13:59:00 EDT, Route to Pharmacy Electronically, [facility] #[id number], 180, cm, 12/13/21 12:56:00 EDT, Height, 136.6, [...] Refills, Maintenance, 12/13/21 13:57:00 EDT, [facility] #[id number], Partial fill upon patient request if the prescription is for a schedule II opioid drug., 180, cm, 12/13/21 12:56:00 EDT, Hei... Start Date: 12/13/21 Status: Ordered cephalexin monohydrate 250 mg oral capsule 1 capsule = 250 mg, By Mouth, Every 12 hours, # 180 capsule, 1 Refills, Maintenance, 12/13/21 13:55:00 EDT, Capsule, [facility] #[id number], 180, cm, 12/13/21 12:56:00 EDT, Height, 136.6, [...] Maintenance, 12/13/21 14:03:00 EDT, Tablet, [facility] #[id number], 180, cm, 12/13/21 12:56:00 EDT, Height, 136.6, kg, 09/08/21 16:31:00 EST, Dry Weight Start Date: 12/13/21 Status: Ordered glipiZIDE 2.5 mg oral tablet, extended release 1 tablet = 2.5 mg, By Mouth, Daily, # 90 tablet, 0 Refills, Maintenance, 12/13/21 14:03:00 EDT, ER Tablet, [facility] #[id number], Partial fill upon patient request if the [...] 11/27/21 12:04:00 EDT, [facility]ically, [facility][id number], 180, cm, 09/22/21 20:27:00 EST, Height, 136.6, [...] 01/10/22 14:03:00 EDT, 12/13/21 14:03:00 EDT, Ointment, [facility] #[id number], 1 application Topically 2 times a day,x14 days,Instr:apply to a... Start Date: 12/13/21 Stop Date: 01/10/22 Status: Ordered simvastatin 20 mg oral tablet 1, tablet, By Mouth, Daily at bedtime, # 90 tablet, Refills 3, Tot. Refills 3, 12/14/21 1:07:00 EDT, Route to Pharmacy Electronically, [facility] #[id number], 180, cm, 12/13/21 12:56:00 EDT, Height, 136.6, [...] 2 Refills, Maintenance, 12/13/21 13:55:00 EDT, Tablet, [facility] #[id number], 180, cm, 12/13/21 12:56:00 EDT, Height, 136.6, kg, 09/08/21 16:31:00 EST, Dry Weight Start Date: 12/13/21 Status: Ordered warfarin 5 mg oral tablet See Instructions, Take 1.5 tablets daily(7.5 mg) alternate with 2 tablets(10 mg) every othery day, # 150 tablet, 2 Refills, Maintenance, 12/13/21 14:00:00 EDT, [facility] #[id number], 180, cm, 12/13/21 12:56:00 EDT, Height, 136.6, [...]
--- OUTSIDE RECORDS SUMMARY | 2024-01-20 06:15 | XMS_ITS | Continuity of Care Document ---
Author Organization [facility] ter Address [address] [place] [phone] Care Team Providers Care Stone Breaker Name Role Phone Vladimir Keys MD Primary Care Physician Encounter [facility] Date(s): 02/11/23 - 02/17/[address] [address]- Encounter Diagnosis Pyelonephritis(Final) - 02/11/23 Cellulitis(Final) - 02/11/23 Discharge Disposition: A-Transfer VNA/Home Health Attending Physician: Angy Bear DO Admitting Physician: Yara Marshall MD Referring Physician: Not on Staff, Referring [...] drug. Start Date: 04/06/22 Status: Ordered amoxicillin-clavulanate 500 mg-125 mg oral tablet 1 tablet, By Mouth, 2 times a day, # 15 tablet, 0 Refills, Acute 02/23/23 23:59:00 EDT, 02/17/23 11:58:00 EDT, Tablet, [facility], Partial fill upon patient request if the prescription is for a schedule II opioid drug., 177, cm, 02/17/23... Start Date: 02/17/23 Stop Date: 02/23/23 Status: Ordered B-12 1000 mcg oral tablet, extended release 1 tablet = 1,000 mcg, By Mouth, Daily, # 90 tablet, 1 Refills, Maintenance, 07/23/22 16:50:00 EST, [facility] #[id number], 182.88, cm, 05/09/22 12:50:00 EDT, Height, 125.1, [...] drug. Start Date: 09/06/21 Status: Ordered doxycycline monohydrate 100 mg oral tablet = 100 mg, By Mouth, 2 times a day, # 15 tablet, 0 Refills, Acute 02/23/23 23:59:00 EDT, 02/17/23 11:57:00 EDT, Tablet, [facility], Partial fill upon patient request if the prescription is for a schedule II opioid drug., 177, cm, 02/17/23... Start Date: 02/17/23 Stop Date: 02/23/23 Status: Ordered FREESTYLE LITE BLOOD GLUCOSE STRIPS [...] day, # 120 capsule, Refills 0, Maintenance, 02/07/23 9:26:00 EDT, Route to Pharmacy Electronically, [email or web address] #[id number], 177.8, cm, 10/21/22 11:06:00 EDT, Height, 106.6, kg, 10/18/22 3:46:00 EDT, Dry Weight Start Date: 02/07/23 Status: Ordered gabapentin 100 mg oral capsule 200 mg, Capsule, By Mouth, 02/17/23 9:00:00 EDT Start Date: 02/17/23 Stop Date: 02/17/23 Status: Completed insulin lispro 100 units/mL injectable [...] 07/23/22 16:50:00 EST, Route to Pharmacy Electronically, [email or web address] #[id number], 182.88, cm, 05/09/22 12:50:00 EDT, Height, 125.1, kg, 04/23/22 14:36:00 EDT,... Start Date: 07/23/22 Status: Ordered metoprolol 50 mg oral tablet, extended release 150 mg, XL Tablet, By Mouth, 02/17/23 9:00:00 EDT Start Date: 02/17/23 Stop Date: 02/17/23 Status: Completed miconazole 2% topical ointment See Instructions, Topically Daily to affected wound areas, # 28.4 Gm, 0 Refills, Acute 03/13/23 23:59:00 EDT, 02/17/23 11:59:00 EDT, Ointment, [facility], Partial fill upon patient request if the prescription is for a schedule II opioid... Start Date: 02/17/23 Stop Date: 03/13/23 Status: Ordered Multivit Therapeutic/Minerals Tablet 1 tablet, [...] 12/19/22 16:20:00 EDT, Route to Pharmacy Electronically, [email or web address] #[id number], 177.8, cm, 10/21/22 11:06:00 EDT, Height, 106.6, kg, 10/18/22 3:46:00 EDT, Dry Weight Start Date: 12/19/22 Status: Ordered warfarin 5 mg oral tablet See Instructions, TAKE 1.5 TABLETS(7.5MG) BY MOUTH EVERY DAY ALTERNATE WITH 2 TABLETS(10MG) EVERY OTHER DAY, # 150 tablet, 0 Refills, Maintenance, 12/20/22 11:55:00 EDT, [facility] #[id number], 177.8, cm, 10/21/22 11:06:00 EDT, Height, 106.6, [...] Confirmed Active 1Problem added by Discern Expert Results Orders for Microbiology Reports Name Date Blood Culture 02/11/23 Blood Culture #2 02/11/23 Microbiology Reports TEST:Blood Culture, Second Order STATUS:Auth (Verified) BODY SITE: SOURCE:Blood COLLECTED DATE/TIME:02/11/23 5:58 PM Blood Culture, Second Order SPECIMEN DESCRIPTION : BLOOD RAC SPECIAL REQUESTS : NONE CULTURE : NO GROWTH 5 DAYS. REPORT STATUS : FINAL 02/16/2023 TEST:Blood Culture STATUS:Auth (Verified) BODY SITE: SOURCE:Blood COLLECTED DATE/TIME:02/11/23 5:48 PM Blood Culture SPECIMEN DESCRIPTION : BLOOD L AC SPECIAL REQUESTS : NONE CULTURE : NO GROWTH 5 DAYS. REPORT STATUS : FINAL 02/16/2023 Radiology Reports * Exam Date Time Procedure Performing Provider Status 02/11/23 8:[address] Abd/Pelvis W/ IV Contrast Only Jessica Pope; Auth (Verified) Notes: (CT Abd/Pelvis W/ IV Contrast Only) Reason For Exam: LLQ abdominal pain;Other: RESULT: CT Abd/Pelvis W/ IV Contrast Only CT Abd/Pelvis W/ IV Contrast Only Hx of Present Illness: per dtr pt with newly formed red painful spots to lower back, hips and legs,pt also has chronic BLE wounds and is bedbound. Pt denies any complaints at rest, vague regarding events history.; Reason: Other:; LLQ abdominal pain; Clinical Question(s): Abscess; sacral ulcers; Order Comment: TECHNIQUE: Spiral CT through the abdomen and pelvis with IV contrast formatted in 3 planes. 100 cc of Omnipaque 300 was administered intravenously. This study was performed without oral contrast. Weight-based protocol using automatic tube modulation was used to optimize exposure parameters. CTDIvol Body: 19.69 mGy, DLP Body: 1094 mGy*cm. COMPARISON: None. FINDINGS: Fire[employer] Cutter View Findings, Lines and Tubes: None. Visualized Chest: Small right pleural effusion with bibasilar atelectasis and groundglass opacity. Small hiatal hernia. The heart is normal in size. No pericardial effusion. Diaphragm: Normal. Liver: Normal. Gallbladder: No CT evidence of gallbladder pathology. Bile ducts: No biliary ductal dilation. Spleen: Normal. Pancreas: Fatty atrophy. No pancreatic lesion or ductal dilatation. Adrenal glands: As on the prior examination, there is a 1.8 cm left adrenal adenoma. Kidneys and ureters: Low-attenuation areas within cortical region of bilateral kidneys. Bladder: There are multiple stones within the dependent portion of the bladder. Reproductive organs: Unremarkable. Stomach, small bowel, and large bowel: Diverticulosis of the descending, sigmoid colon. Appendix: Normal. Peritoneum and retroperitoneum: No ascites or pneumoperitoneum. No omental or mesenteric lesions. Lymph nodes: No enlarged lymph nodes. Blood vessels: Normal. No aneurysm. No evidence of venous thrombosis. Abdominal and pelvic wall: Unremarkable. There is skin thickening along the right lateral hip with subcutaneous stranding possibly due to cellulitis. Bones: No acute abnormality. No evidence of decubitus ulcer at this time IMPRESSION: Low attenuation areas within bilateral renal cortices may represent pyelonephritis in the right clinical setting. Recommend correlation patient's PSA level. No evidence of decubitus ulcer disease time. Skin thickening overlying the right lateral hip concerning for cellulitis. Diverticulosis of the descending and sigmoid colon without definite evidence of diverticulitis. An actionable message ([place]) has been communicated via the [employer] on 02/11/2023 9:10 PM, Message ID [id number]. WSN: [id number] Ordering Physician: Carter Banks Dictated By: Miriam Brown MD Dictated Date/Time: 02/11/23 9:10 pm Reviewed By: Miriam Brown MD Signed By: Miriam Brown MD Signed Date/Time: 02/11/23 9:10 pm Transcribed By: MARIYA Transcribed Date/Time: 02/11/23 8:58 pm * Exam Date Time Procedure Performing Provider Status 02/11/23 5:36 PM Chest Portable Wiater , Ese; Auth ( Verified) Notes: (Chest Portable) Reason For Exam: Shortness of Breath RESULT: Chest Portable Chest Portable Hx of Present Illness: per dtr pt with newly formed red painful spots to lower back, hips and legs,pt also has chronic BLE wounds and is bedbound. pt denies any complaints at rest, vague regarding events history.; Reason: Shortness of Breath; Clinical Question(s): CHF COMPARISON: [facility], most recent dated 05/09/2022 FINDINGS: LINES AND TUBES: None. LUNGS AND PLEURA: No focal consolidation. Normal pulmonary vascularity. No pleural effusion. No pneumothorax. HEART, MEDIASTINUM AND AVE: Heart is normal in size. Normal mediastinal and hilar contour. BONES AND SOFT TISSUES: No acute abnormality. Right shoulder arthritic changes noted. IMPRESSION: No acute abnormality. WSN: [id number] Ordering Physician: Carter Banks Dictated By: Kristina Watkins MD Dictated Date/Time: 02/11/23 5:43 pm Reviewed By: Kristina Watkins MD Signed By: Kristina Watkins MD Signed Date/Time: 02/11/23 5:43 pm Transcribed By: MARIYA Transcribed Date/Time: 02/11/23 5:41 pm Vital Signs Most recent to oldest [Reference Range]: 1 2 3 Height 177 cm (02/17/23 2:21 PM) 177 cm (02/17/23 4:00 AM) 177 cm (02/17/23 1:02 AM) Weight 115.6 kg (02/12/23 5:08 PM) Oxygen Saturation [94-100 %] 100 % (02/17/23 2:21 PM) 98 % (02/17/23 7:00 AM) 97 % (02/17/23 4:00 AM) Pulse Rate [55-90 bpm] 52 bpm *L* (02/17/23 2:21 PM) 98 bpm *H* (02/17/23 11:00 AM) 68 bpm (02/17/23 8:17 AM) Body Mass Index [18.5-24.99 kg/m2] 36.9 kg/m2 *>HHI* (02/12/23 5:08 PM) Blood Pressure [90-138/55-84 mm Hg] 136/62mm Hg (02/17/23 2:21 PM) 128/76mm Hg (02/17/23 11:00 AM) 150/73mm Hg *H* (02/17/23 8:17 AM) Respiratory Rate [16-30 br/min] 20 br/min (02/17/23 2:21 PM) 18 br/min (02/17/23 11:00 AM) 18 br/min (02/17/23 10:28 AM) Temperature [96.8-100.4 DegF] 98.1 DegF (02/17/23 2:21 PM) 98.2 DegF (02/17/23 11:00 AM) 97.7 DegF (02/17/23 7:00 AM) Liters per Minute 0 L/min (02/11/23 5:02 PM) Mode of Delivery (Oxygen) Room air (02/17/23 2:21 PM) Room air (02/17/23 11:00 AM) Room air (02/17/23 7:00 AM) Blood pressure sites Arm, left (02/17/23 2:21 PM) Arm, right (02/17/23 11:00 AM) Arm, right (02/17/23 7:00 AM) Temperature Route Oral (02/17/23 2:21 PM) Oral (02/17/23 11:00 AM) Oral (02/17/23 7:00 AM) Dry Weight 115.6 kg (02/12/23 5:08 PM) Weight Obtained Via Bed scale (02/12/23 5:08 PM) Social History Social History Type Response [...] Safety Implantable Status Assigning Authority Unknown Unknown [id number] Unknown 12/26/26 Unknown Unknown Active Unknown Admission evaluation note * Rolando OLMOS, Yara Palomino: MODIFY, PERFORM, MODIFY Event Display: Admission Note Authored Date: Patient: ??KENDRA KEARNS ? Age:??78 Years?Sex:??Male?:??1945?? Chief Complaint/Reason for Consultation from home, bed bound, has chronic wound to legs, family and pt concern for red wounds to bilateral legs and lower back. History of Present Illness Mr. 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 ?? Patient has been bedbound for over a year. He had a fall and developed left compartment syndrome s/p fasciotomy Aug 2021. He was most recently hospitalized 10/17 - 10/21 with right calcaneal osteomyelitis for which ID recommended 6 weeks of broad therapy with Augmentin and doxycycline which ended on 11/28, although he remains on doxycycline for chronic suppressive therapy.?? He has been taken care ofby his daughter with whom he lives.??States his right heel ulcer has healed. He states he has had bedsores chronically over the course of being bedbound, and that over the past few days developed temperatures up to??max 100.9 F with increasing pain in his bedsores.??He has a visiting nurse as well who noted that he has been developing worsening of the bedsores on his back and hips over the past week and today noted that it was warm to the touch and??was concerned.??He had some fevers a few daysago, daughter notes that he has been afebrile for the past 2 days.?? Patient denies chest pain, dyspnea, abdominal pain pain, nausea/vomiting/diarrhea. Does have dysuria, but states it has been an ongoing problem for months and for which he had seen urology at some point. ?? On arrival to the ER he was hemodynamically stable.?? Labs showed WBC 12.0, Hb 11.3 (at baseline), platelets 281, INR 2.4, sodium 136, bicarb 23, anion gap 12, glucose 100, creatinine 1.8 (at baseline), lactate two-point 0 repeat 4.2, urinalysis showed trace albumin, trace Hb, positive nitrites,3+ leukocyte esterase, > 182 WBCs, 3 RBCs, moderate bacteria.?? Chest x-ray shows no acute abnormality.?? CT abdomen pelvis with IV contrast shows low-attenuation areas within bilateral renal cortices that may represent pyelonephritis, no evidence of decubitus ulcer, skin thickening over lying right lateral hip concerning for cellulitis, diverticulosis of descending and sigmoid colon without di verticulitis.?? Patient was given Vanco and Zosyn and 1 L IV LR. Review of Systems All systems reviewed and negative except as indicated in HPI. Objective Vital Signs?? Temperature: 98.7 DegF (02/11/23 19:38:00) Temperature Route: Rectal (02/11/23 19:38:00) Pulse Rate: 83 bpm (02/12/23 04:15:00) Respiratory Rate:??13 br/min??Low (02/12/23 04:15:00) Systolic Blood Pressure: 122 mm Hg (02/12/23 04:15:00) Diastolic Blood Pressure:??51 mm Hg??Low (02/12/23 04:15:00) Blood pressure sites: Arm, right (02/12/23 04:15:00) Mean Arterial Pressure: 77 mm Hg (02/12/23 01:58:00) Pulse Pressure: 71 mm Hg (02/12/23 04:15:00) Oxygen Saturation: 100 % (02/12/23 04:15:00) Liters per Minute: 0 L/min (02/11/23 17:02:00) Mode of Delivery (Oxygen): Room air (02/12/23 04:15:00) Early Warning Score: 4 (02/12/23 04:42:27) ? Intake/Output? 02/11 22:30 02/12 07:00 02/11 07:00 02/10 07:00 02/09 07:00 ?? 02/12 05:03 02/12 05:03 02/12 06:59 02/11 06:59 02/10 06:59 Intake ?200 ?0 ?200 ?0 ?0 Output ?0 ?0 ?0 ?0 ?0 Net Total ?200 ?0 ?200 ?0 ?0 ? Physical Exam Constitutional: Alert, [...] lower extremity pitting??edema. No cyanosis or clubbing. Neurologic: AAOx3, Speech normal. No focal neurological deficits. 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 ?? Cellulitis (L03.90):? Cellulitis/pressure ulcers??over??right lateral hip,??bilateral buttocks,??no abscess Has a history of MRSA bacteremia Is on doxycycline??for chronic suppressive therapy ?Follow-up blood cultures ?Continue vancomycin ?Consulted wound care ?Will need to continue doxycycline for chronic suppressive therapy, however developed??possiblecellulitis while on doxycycline,??may need to consider??ID consult ?? Pyelonephritis (N12):? Abnormal urinalysis??with WBCs, bacteria, leukocyte esterase, nitrate Associated with dysuria CT abdomen pelvis with evidence of??bilateral pyelonephritis ?Follow-up urine culture ??? Continue Zosyn ?? CKD (chronic kidney disease), stage III (N18.30):? Creatinine at baseline, no KHADRA ?Avoid nephrotoxins ??? Renally dose meds ??? Daily CMP ?? Chronic atrial fibrillation (I48.20):? Controlled, not in RVR ?Continue warfarin ?Continue metoprolol ?? Controlled diabetes mellitus (E11.9):? SSI ??? Goal 140???180 ?? Aortic stenosis (I35.0):? s/p TAVR On warfarin at home, 7.5 mg??and 10 mg alternating INR 2.4 ?Goal INR 2???3 ??? Daily INR ??? Continue warfarin 7.5 mg daily, titrate for INR??goal ?? Lactic acidosis (E87.20):? Unclear etiology, initially normal, repeat elevated to 4.2 after receiving IV fluids Ddx: sepsis vs delayed clearance vs drug induced?? - continue abx as above - repeat lactate - will hold IV fluids for now ?? Code status: full DVT ppx:??warfarin Diet: regular Dispo: floors ?? Total Visit Time: I personally spent a total of 80 minutes, including both kqnz-qx-irhd and maa-nlpm-qg-face time on the date of the encounter, addressing the above diagnoses. Activities performed in this time include chart review, obtaining / reviewing history, performing amedically necessary evaluation, documentation and counseling. ?? Yara Marshall MD Guitar Teacher 7p-7a After 7 am please contact day time provider for questions/consult updates. ? Histories Past Medical History/Problem List Active Problems??(28) Anemia Aortic stenosis Chronic atrial fibrillation Chronic total occlusion of coronary artery Chronic ulcer of buttock CKD (chronic kidney disease), stage III Controlled diabetes mellitus COVID-19 Deficiency of vitamin B12 Fatigue Gout Hyperlipidemia Hypersensitivity Hypertension LBBB (left bundle branch block) Leg pain Mitral valve stenosis, non-rheumatic Obese class I Obese class II Osteomyelitis of foot Pancreatic cyst Phimosis of penis Pressure ulcer [...] hours?as needed?as needed for fever / pain Amoxicillin (amoxicillin 500 mg oral tablet)?4?tab(s)?2,000?Milligram?By Mouth?Once?Please take 4 tablets (2,000 mg) by mouth one hour prior to urinary procedure. Cyanocobalamin (B-12 1000 mcg oral tablet, extended release)?1?tab(s)?1,000?Microgram?By Mouth?Daily Docusate (docusate sodium 150 mg/15 ml oral liquid)?10?Milliliter?100?Milligram?By Mouth?2 times a day?as needed?Constipation Doxycycline (doxycycline hyclate 100 mg oral capsule)?1?capsule?100?Milligram?By Mouth?2 times a day?for 45?Days Gabapentin (gabapentin 100 mg oral capsule)?2?capsule?By Mouth?2 times a day Insulin Lispro (insulin lispro 100 units/mL injectable solution)?2-10 units?Subcutaneous Injection?3 times a day before meals?<< Sliding Scale Comments >>150 - 199 ?? 2 units Call if less than [id number] - 249 ?? 4 units 250 - [...] oral tablet)?1?tablet?By Mouth?Daily at bedtime Warfarin (warfarin 5 mg oral tablet)?See Instructions?TAKE 1.5 TABLETS(7.5MG) BY MOUTH EVERY DAY ALTERNATE WITH 2 TABLETS(10MG) EVERY OTHER DAY ? Inpatient Medications Medications (18) Active SCHEDULED: (6) Gabapentin 100 mg Capsule (gabapentin 100 mg oral capsule) ??200 mg, By Mouth, 2 times a day Insulin Lispro 100 units/mL Inj (3mL) (Insulin LISPRO Sliding Scale) ??2-10 units, Subcutaneous Injection, 3 times a day before meals Metoprolol 50 mg XL Tablet (metoprolol 50 mg oral tablet, extended release) ??150 mg, By Mouth, Daily NaCl 0.9% Flush 3ml (NaCL 0.9% Flush) ??3 mL, IV Push, Every 8 hours Simvastatin 20 mg Tablet (simvastatin 20 mg oral tablet) ??20 mg, By Mouth, Daily at bedtime Warfarin 2.5 mg Tablet (warfarin 2 mg oral tablet) ??7.5 mg, By Mouth, Daily CONTINUOUS: (0) PRN: (12) Acetaminophen 325 mg Tablet (Acetaminophen Tablet) ??650 mg, By Mouth, Every 4 hours Dextromethorphan-Guaifenesin 20 mg-200 mg/10 mL Liqu UD (Robitussin DM Liquid) ??10 mL, By Mouth, Every 4 hours Dextrose Inj Syringe (Dextrose 50% Inj Syringe (25Gm)) ??12.5 Gm, IV Push Slowly, Every 20 minutes Dextrose Inj Syringe (Dextrose 50% Inj Syringe (25Gm)) ??25 Gm, IV Push Slowly, Every 15 minutes Glucagon 1 mg Inj (Glucagon Inj) ??1 mg, Intramuscular, Once Glucose 40% Gel (15 Gm) (Glucose Gel) ??15 Gm, By Mouth, Every 20 minutes Glucose 40% Gel (15 Gm) (Glucose Gel) ??30 Gm, By Mouth, Every 20 minutes Melatonin 3 mg Tablet (Melatonin Tablet) ??3 [...] Recent Labs BLOOD COUNT & DIFF WBC 11.5 k/mm3 (High)?? 02/12/2023 04:20 RBC 3.49 m/mm3 (Low)?? 02/12/2023 04:20 Hgb 10.3 Gm/dL (Low)?? 02/12/2023 04:20 Hct 33.4 % (Low)?? 02/12/2023 04:20 MCV 95.7 femtoliters (High)?? 02/12/2023 04:20 MCH 29.5 pg ()?? 02/12/2023 04:20 MCHC 30.8 g/dL (Low)?? 02/12/2023 04:20 Platelet Count 229 k/mm3 ()?? 02/12/2023 04:20 RDW-SD 51.0 femtoliters (High)?? 02/12/2023 04:20 MPV 10.3 femtoliters ()?? 02/12/2023 04:20 Nucleated RBC (Automated) 0.0 #/100 WBC'S ()?? 02/12/2023 04:20 Abs. NRBC 0.0 k/mm3 ()?? 02/12/2023 04:20 Abs. Neut 9.6 k/mm3 (High)?? 02/12/2023 04:20 Abs. Lymph 0.9 k/mm3 ()?? 02/12/2023 04:20 Abs. [place] 0.9 k/mm3 ()?? 02/12/2023 04:20 Abs. Eo 0.1 k/mm3 ()?? 02/12/2023 04:20 Abs. Baso 0.0 k/mm3 ()?? 02/12/2023 04:20 Neut % 83.2 % (High)?? 02/12/2023 04:20 Lymph % 7.7 % (Low)?? 02/12/2023 04:20 [place] % 7.9 % ()?? 02/12/2023 04:20 Eos % 0.5 % ()?? 02/12/2023 04:20 Baso % 0.2 % ()?? 02/12/2023 04:20 Imm Gran 0.5 % ()?? 02/12/2023 04:20 Abs. Imm Gran 0.1 k/mm3 ()?? 02/12/2023 04:20 ?? CHEM GENERAL Sodium 136 mmol/L ()?? 02/11/2023 17:48 Potassium 4.7 mmol/L ()?? 02/11/2023 17:48 Chloride 101 mmol/L ()?? 02/11/2023 17:48 Bicarbonate Level 23 mmol/L ()?? 02/11/2023 17:48 Anion Gap 12 ()?? 02/11/2023 17:48 Glucose Level 100 mg/dL (High)?? 02/11/2023 17:48 BUN 35 mg/dL (High)?? 02/11/2023 17:48 Creatinine-Blood 1.8 mg/dL (High)?? 02/11/2023 17:48 Estimated GFR Creatinine 38 ML/MIN/1.73 M2 ()?? 02/11/2023 17:48 Calcium 10.6 mg/dL (High)?? 02/11/2023 17:48 Lactate 4.2 mmol/L (High)?? 02/11/2023 20:43 ?? COAG INR 2.4 (High)?? 02/11/2023 17:48 Protime (PT) 24.0 seconds (High)?? 02/11/2023 17:48 APTT 46.4 seconds (High)?? 02/11/2023 17:48 ?? COUMADIN CLINIC RESULTS INR ([facility]) 2.8 (Normal)?? 02/11/2023 00:00 ?? MISC. CHEMISTRY Hold Green Top SPECIMEN DISCARDED AFTER 1 WEEK ()?? 02/11/2023 17:48 ?? UA/URINALYSIS Appear/Color, Urine YELLOW ()?? 02/11/2023 20:43 Specific [place], Urine 1.018 ()?? 02/11/2023 20:43 pH, Urine 6.0 ()?? 02/11/2023 20:43 Albumin, Urine TRACE (Abnormal)?? 02/11/2023 20:43 Glucose, Urine NEGATIVE ()?? 02/11/2023 20:43 Ketones, Urine NEGATIVE ()?? 02/11/2023 20:43 Bilirubin, Urine NEGATIVE ()?? 02/11/2023 20:43 Hemoglobin, Urine TRACE (Abnormal)?? 02/11/2023 20:43 Nitrite, Urine POSITIVE (Abnormal)?? 02/11/2023 20:43 Leukocyte, Urine 3+ (Abnormal)?? 02/11/2023 20:43 Urobilinogen NORMAL mg/dL ()?? 02/11/2023 20:43 WBC's, Urine >182 /HPF (High)?? 02/11/2023 20:43 RBC's, Urine 3 /HPF ()?? 02/11/2023 20:43 Bacteria MODERATE HPF (Abnormal)?? 02/11/2023 20:43 Squamous Epith 2 /HPF ()?? 02/11/2023 20:43 Mucus SLIGHT /LPF ()?? 02/11/2023 20:43 Hold Urine Culture Testing available 48 hours from time of collection. ()?? 02/11/2023 20:43 ?? VIROLOGY COVID-19 by RT-PCR NEGATIVE ()?? 02/11/2023 17:44 ? Blood Glucose Trend Glucose Level:??100 mg/dL??High (02/11/23 17:48:00) ? CBC, CBC w/Diff?? CBC?? Differential?? WBC:??11.5 k/mm3??High (04:20) Abs. Neut:??9.6 k/mm3??High (04:20) RBC:??3.49 m/mm3??Low (04:20) Abs. Lymph: 0.9 k/mm3 (04:20) Hct:??33.4 %??Low (04:20) Abs. [place]: 0.9 k/mm3 (04:20) RDW-SD:??51 femtoliters??High (04:20) Abs. Eo: 0.1 k/mm3 (04:20) Nucleated RBC (Automated): 0 #/100 WBC'S (04:20) Abs. Baso: 0 k/mm3 (04:20) Abs. NRBC: 0 k/mm3 (04:20) Neut %:??83.2 %??High (04:20) ?? Lymph %:??7.7 %??Low (04:20) ?? [place] %: 7.9 % (04:20) ?? Eos %: 0.5 % (04:20) ?? Baso %: 0.2 % (04:20) ?? Imm Gran: 0.5 % (04:20) ?? Abs. Imm Gran: 0.1 k/mm3 (04:20) ? LFT Protime (PT):??24 seconds??High (17:48) ?? Urinalysis Albumin, Urine: TRACE Abnormal (20:43) Appear/Color, Urine: YELLOW (20:43) Bacteria: MODERATE Abnormal (20:43) Bilirubin, Urine: NEGATIVE (20:43) Glucose, Urine: NEGATIVE (20:43) Hemoglobin, Urine: TRACE Abnormal (20:43) Hold Urine Culture: Testing available 48 hours from time of collection. (20:43) Ketones, Urine: NEGATIVE (20:43) Leukocyte, Urine: 3+ Abnormal (20:43) Mucus: SLIGHT (20:43) Nitrite, Urine: POSITIVE Abnormal (20:43) pH, Urine: 6 (20:43) RBC's, Urine: 3 /HPF (20:43) Specific [place], Urine: 1.018 (20:43) Squamous Epith: 2 /HPF (20:43) Urobilinogen: NORMAL (20:43) WBC's, Urine:??>182??High (20:43) ?? Microbiology ?? COVID-19 (Novel Coronavirus), Rapid PCR?? Completed?? Source: Nasal Body Site: Nose Collected Dt/Tm: 02/11/2023 16:58 Last Updated Dt/Tm: 02/11/2023 19:45 ? Blood Gases?? No qualifying data available. ?? EKG study * Event Display: ECG 12-Lead Authored Date: Please click on pdf link to open report * Event Display: ECG 12-Lead Authored Date: Ventricular Rate: 101 BPM QRS Duration: 152 ms Q-T Interval: 326 ms QTC Calculation(Bazett): 422 ms R [place]: -5 degrees T [place]: 143 degrees Atrial fibrillation with rapid ventricular response with premature ventricular or aberrantly conducted complexes Left bundle branch block Abnormal ECG When compared with ECG of 18-OCT-2022 21:18, QT has shortened Confirmed by JOHNSON GARCIA MD () on 02/12/2023 7:14:04 PM Cowan: JOHNSON GARCIA MD * Event Display: ECG 12-Lead Authored Date: Please click on pdf link to open report * Event Display: ECG 12-Lead Authored Date: Ventricular Rate: 86 BPM Atrial Rate: 93 BPM QRS Duration: 154 ms Q-T Interval: 382 ms QTC Calculation(Bazett): 457 ms R [place]: -11 degrees T [place]: 124 degrees Atrial fibrillation Left bundle branch block Abnormal ECG When compared with ECG of 18-OCT-2022 21:18, No significant change was found Confirmed by JOHNSON GARCIA MD () on 02/12/2023 7:13:52 PM Cowan: JOHNSON GARCIA MD Cardiology * Event Display: Cardiac Rhythm Strips Authored Date: Hospital Progress note * Pj Brunson RN: PERFORM, SIGN, VERIFY Event Display: Progress Note Hospital Authored Date: [id number] Patient: KENDRA KEARNS Age: 78 years Sex: Male : 1945 Associated Diagnoses: None Author: Boy LOREDO, Pj Findings Problem Related to Alteration in Integumentary : Alteration in Integumentary/new 02/17/2023 0:00 EDT Alteration in Integumentary Related to Cellulitis, Pressure, Shear, Friction, Immobility Goals & Outcomes, Integumentary Nutritional intake is adequate for metabolic needs, Pt will maintain adequate fluid & nutritional balance, Pt will maintain intact skin integrity, Wound will progress towards healing Interventions, Integumentary Cleanse all wounds with Normal Saline, Consult Wound Care as needed for further interventions, Encourage & assist pt to change position frequently, Encourage & assist with range of motion exercises, Encourage family participation in pt's care as they are able, Ensure relief modes are on mattress surface & utilized, Increase turning frequency if red or blanched areas appear, Interdisciplinary consults as appropriate, Keep bed as flat as tolerated to reduce shearing, Keep linen clean, dry and wrinkle free, Keep skin clean & dry, Maintain sterile technique with dressing changes, Minimize friction, shear and moisture, Monitor reddened areas for continued or increasing reddness, Record extent of impaired skin integrity, Relieve pressure off bony areas, Reposition pt off reddened areas BH Goals/Interventions, Integumentary Yes Integumentary, Problem Start 02/13/2023 6:48 Reviewed plan with, Integumentary Patient Patient Progression, Integumentary Pt progressing according to plan . Nursing Data Vital Signs : VITAL SIGNS SECTION 02/16/2023 20:03 EDT Early Warning Score 4.00 02/16/2023 20:03 EDT Temperature 97.8 DegF Temperature Route Oral Pulse Rate 82 bpm Respiratory Rate 18 br/min Systolic Blood Pressure 150 mm Hg H Diastolic Blood Pressure 84 mm Hg Blood pressure sites Arm, right Mean Arterial Pressure 106 mm Hg Pulse Pressure 66 mm Hg Oxygen Saturation 94 % Mode of Delivery (Oxygen) Room air . Narrative/Incidental alert and oriented x 4, afebrile. Denied ches tpain or shortness of breath. Afib on tele, rate controlled. Voiding adequate amount of urine. Multiple open areas on the left and right buttocks mostly on the left side, applied anti-fungal + triad creams. Cellulitis is improving on PO antibiotics. Resting in bed at this time. Endorsed care to Ila LOREDO . Evaluation Progressing with plan of care. * Monster OLMOS, Sergio New: PERFORM Event Display: Progress Note Hospital Authored Date: Patient: ??KENDRA KEARNS ? Age:??78 Years?Sex:??Male?:??1945?? Subjective NAEO. ?? Interval Updates Afebrile, HDS. Hgb to 7.6 from 9.0 and 11.3 on admission. Cr to 1.9 from 2.1. No obvious bleed, butulcer sites with some intermittent mild bleeding. INR slightly supratherapeutic to 3.2. Will recheck Hgb this afternoon. Also still pending PT eval. Review of Systems Review of systems negative except as stated above. Objective Vital Signs?? Temperature: 97.5 DegF (02/16/23 16:00:00) Temperature Route: Oral (02/16/23 16:00:00) Pulse Rate: 61 bpm (02/16/23 16:00:00) Respiratory Rate: 18 br/min (02/16/23 16:00:00) Systolic Blood Pressure: 137 mm Hg (02/16/23 16:00:00) Diastolic Blood Pressure: 55 mm Hg (02/16/23 16:00:00) Blood pressure sites: Arm, right (02/16/23 16:00:00) Pulse Pressure: 71 mm Hg (02/16/23 03:00:00) Oxygen Saturation: 100 % (02/16/23 16:00:00) Mode of Delivery (Oxygen): Room air (02/16/23 16:00:00) Early Warning Score: 2 (02/16/23 16:35:49) ? Physical Exam Constitutional: Alert, in no distress. Head: Normocephalic. Eyes:??EOMI. No scleral icterus or conjunctivitis.?? Neck: Supple, Full range of motion. Respiratory: Clear to auscultation b/l Cardiovascular: RRR. S1 S2 regular.??No JVD. Gastrointestinal: Abdomen non-tender, non-distended. Normal bowel sounds. Neurologic: No focal neurological deficits. Skin: No rashes or lesions. Musculoskeletal: No gross deformities. L BKA. R mid foot amputation. 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 ??Found to have??an abnormal urinalysis and imaging concerning for pyelonephritis. ??Patient is now on an oral antibiotic regimen of Augmentin and doxycycline??to be completed on 02/23.?He was seen by OT, patient has good strength in his lower extremities however he is unable to bear weight at this time, which is prompting an evaluation by physical therapy. ?? Cellulitis (L03.90) Cellulitis/pressure ulcers??over??right lateral hip,??bilateral buttocks,??no abscess Has a history of MRSA bacteremia and is on doxycycline??for chronic suppressive therapy Initially presented with a fever 100.5 F, tachycardic, with a leukocytosis greater than 12??and a source of infection??(skin,??urine).?? Sepsis was likely secondary to cellulitis??and pyelonephritis. Remains afebrile and without a leukocytosis ?? Plan: ?Follow-up blood cultures, NGTD ?Continue Augmentin 875mg BID??and Doxycycline 100mg BID for a duration of 10 days (end date 02/23) ??? Wound care consulted, recommendations: 1.) L posterior iliac crest (lower sacrum): Cleanse with Vashe. Pat dry. Apply TRIAD to wound bed (where slough and eschar is present). Apply Miconazole 2% ointment to Periwound BID. 2.) L greater trochanter (hip): Cleanse with Vashe. Pat dry. Apply Triad dressing thinly to open areas daily. Reapply thin layer as needed with incontinence care. 3.) Buttocks: Cleanse with Ph balanced cleanser. Pat dry. Apply miconazole 2% ointment to affected area. Apply BID. ?? 4.) Continue use of specialty bed/low air loss mattress 5.) Turn and reposition every 2 hours and PRN 6.) Continue incontinence care as well as moisture management; do not utilize Mepilex foam dressingwith incontinence.?? 7.) Continue to offload bony prominences 8.) Float heels 9.) Continue to provide optimal nutritional support 10.) Provide Gaymar cushion to chair when patient OOB? Therapeutic bed ordered? Acute on chronic Anemia - Hgb 11.3 on admission, down to 7.6. No source of??significant blled but multiple??wounds with??subtle period bleeding and slightly supratherapeutic INR. Plan: - Rechck H+H this PM - Anemia work up, retic, iron panel, B12, folate, LDH, haptoglobin,??Fractionated bili added on - Transfuse for hgb <7, will need T+S and consent ?? Pyelonephritis (N12) CT abdomen pelvis with evidence of??bilateral pyelonephritis Continues to remain afebrile and without leukocytosis, no flank pain or CVA tenderness ?? Plan: ??? Continue??abx as above ?? Acute Kidney Injury on CKD (chronic kidney disease), stage III (N18.30), resolved KHADRA Now with acute kidney injury, Cr??now downtrending to 2.1??from baseline 1.7-2.0 in the past few months Can be in the setting of sepsis given concern for pyelonephritis and cellulitis in addition to vancomycin FeNa calculated 1.1%, intrinsic cause ?? Plan: ??? monitor BMP ?? Resolved Medications Sepsis: resolved, likely from cellulitis Lactic acidosis (E87.20): Resolved, downtrended to 1.8 ?? Chronic Stable Medical Conditions: Chronic atrial fibrillation (I48.20): INR today??3.2. Will continue to dose warfarin daily based onINRs Controlled diabetes mellitus (E11.9):??Continue ISS Aortic stenosis (I35.0):??s/p TAVR. Continue on Warfarin. Obtain daily INR ?? Quality Measures: VTE Prophylaxis:??Warfarin Code Status:??Full Code Diet: Regular PT eval placed, CM for ?rehab per family's request ?? Patient was discussed with attending physician, Dr. Leyva ?? Sergio Hook PGY-2 Resident Physician Internal Medicine-Pediatrics Pager # [phone]?? * Sergio Hook MD: PERFORM Event Display: Progress Note Hospital Authored Date: Repeat Hgb 8.6. * Sydnee Leyva DO: PERFORM Event Display: Progress Note Hospital Authored Date: Attending Attestation:??I have seen and evaluated this patient. ??I have discussed the case and itsmanagement with the resident and agree with the findings and plan as documented in the resident???snote except where otherwise noted. * Mitzy Lim RN: PERFORM, SIGN, VERIFY Event Display: Progress Note Hospital Authored Date: Patient: KENDRA KEARNS Age: 78 years Sex: Male : 1945 Associated Diagnoses: None Author: Mitzy Lim RN Findings Evaluation Pt A/Ox3, forgetful, vss, denies pain. See biophysical for full assessment; no acute event sovernight. Bed in lowest locked position, callbell within reach, bed alarm on, care plan updated.. Discharge Information Case Management Discharge Plan : Case Management Discharge Plan Data 02/12/2023 9:15 EDT Discharge Nursing Homes/Rehab Facilities [facility] Discharge : Rehab Discharge Index 02/14/2023 9:30 EDT Comments on treatment indicated ADLs, funct mob, transfers, safety, pt edu Full chart review completed Yes Hospital course per [facility] Consult note * Braden LOREDO, Con Lilly: MODIFY, SIGN, VERIFY, PERFORM, MODIFY Event Display: Consultation Note Authored Date: Patient: KENDRA KEARNS Age: 78 years Sex: Male : 1945 Associated Diagnoses: None Author: Braden LOREDO, Con Maxx L posterior iliac crest wound base 10/18/22 L posterior iliac crest wound 02/13/23 L greater trochanter 10/18/22 L greater trochanter 02/13/23 buttocks R pannus R hip R lower abdomen History of Presenting Problem Date of Service 02/13/2023 Reason for referral Wound: Description Location- L posterior iliac crest Etiology- Healing full thickness pressure injury Wound Bed- scattered areas of full thickness obscured with yellow/fajardo slough Courtney Wound- erythema, desquamation and satellite lesions consistent with fungal dermatitis Edges- defined Drainage- scant serosanguineous Odor- none No fluctuance or induration Goals- offload pressure, protect from moisture and friction, Triad for enhanced autolytic debridement of slough, Miconazole to periwound for antifungal treatment . Wound: Description Location- L greater trochanter Etiology- Healing stage 3 pressure injury Wound Bed- full thickness skin loss obscured by slough and eschar Courtney Wound- desquamation, erythema Edges- poorly defined Drainage- scant serosanguineous drainage Odor- none No fluctuance or induration Goals- offload pressure, protect from moisture and friction, Triad for enhanced autolytic debridement of slough and moist wound healing . Wound: Description Location- Buttocks Etiology- MASD (moisture associated skin damage) with fungal dermatitis Wound Bed- hyperpigmented discoloration, scattered areas of partial thickness skin loss with pink tissue, satellite lesions, desquamation Courtney Wound- desquamation Edges- poorly defined Drainage- scant sanguinous Odor- none No fluctuance or induration Goals- offload pressure, protect from moisture/friction, Miconazole for antifungal treatment . Wound RN consult entered to assess right lateral hip, back, gluteus wound and make topical recommendations. Patient was admitted for developing/worsening pressure ulcers/cellulitis and pyelonephritis. 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 Wound RN role explained and patient is agreeable to assessment as well as photodocumentation. Patient is able to roll onto his right side for visualization of L posterior iliac crease, L trochanter, and buttocks wounds, which are described in detail above. Patient states he is incontinent of both urine and stool. He states his daughter takes care of the wounds at home and he also has VNA to help with the dressings. He states they are currently using Triad cream at home. Recommendations given to direct care RN and cortext message sent to MD Beavers as well. Recommendations: 1.) L posterior iliac crest (lower sacrum): Cleanse with Vashe. Pat dry. Apply TRIAD to wound bed (where slough and eschar is present). Apply Miconazole 2% ointment to Periwound BID. 2.) L greater trochanter (hip): Cleanse with Vashe. Pat dry. Apply Triad dressing thinly to open areas daily. Reapply thin layer as needed with incontinence care. 3.) Buttocks: Cleanse with Ph balanced cleanser. Pat dry. Apply miconazole 2% ointment to affected area. Apply BID. 4.) Continue use of specialty bed/low air loss mattress 5.) Turn and reposition every 2 hours and PRN 6.) Continue incontinence care as well as moisture management; do not utilize Mepilex foam dressingwith incontinence. 7.) Continue to offload bony prominences 8.) Float heels 9.) Continue to provide optimal nutritional support 10.) Provide Gaymar cushion to chair when patient OOB Plan Time spent 46-60 minutes Note * Gail Fernandes RN: PERFORM Event Display: Discharge/Transfer Note Hospital Authored Date: [id number] Nursing Discharge Note Entered On: 02/17/2023 16:35 EDT Performed On: 02/17/2023 16:35 EDT by Gail Fernandes RN Nursing Discharge Note 2 Discharge Time : 02/17/2023 16:45 EDT Gail Fernandes RN - 02/17/2023 16:45 EDT Discharge Level of Care at Discharge : Homehealth/VNA Discharge Nursing Homes/Rehab Facilities : [facility] Discharge VNA/Hospice/Home Care([id number]) : [facility] [phone] Patient Left Unit Via : Ambulance Patient Accompanied Off Unit with : Ambulance/Chair Van Personnel Handover Given to Transport Personnel : Yes DC Instructions Provided & Signed by Pt : Yes Patient Understands D/C Instructions : Yes Patient Instructions Discharge Signed : Yes Discharge Comments : IV dc'd with the tip intact Did Pt have Specialty Bed or Wound Vac : No Gail Fernandes RN - 02/17/2023 16:35 EDT * Christina Beavers DO: PERFORM Event Display: Discharge/Transfer Note Hospital Authored Date: [id number] Patient: ??KENDRA KEARNS ? Age:??78 Years?Sex:??Male?:??1945?? Patient Information Discharge Location: [facility] Primary Care Physician: Vladimir Keys MD Admit Date/Time: 02/11/23 22:30 Discharge Disposition Discharge Disposition: Home with Home HealthPT and OT Discharge Diagnosis Primary Diagnosis: Cellulitis (L03.90) ?? Secondary Diagnosis: Pyelonephritis (N12) Lactic acidosis (E87.20) CKD (chronic kidney disease), stage III (N18.30) Chronic atrial fibrillation (I48.20) Controlled diabetes mellitus (E11.9) Aortic stenosis (I35.0) ?? _ Discharge Medications Acetaminophen (acetaminophen 325 mg oral tablet)?650?Milligram?2?tablet?By Mouth?Every 4 hours?as needed?as needed for fever / pain Amoxicillin-Clavulanate (amoxicillin-clavulanate 500 mg-125 mg oral tablet)?1?tab(s)?By Mouth?2 times a day Cyanocobalamin (B-12 1000 mcg oral tablet, extended release)?1?tab(s)?1,000?Microgram?By Mouth?Daily Docusate (docusate sodium 150 mg/15 ml oral liquid)?10?Milliliter?100?Milligram?By Mouth?2 times a day?as needed?Constipation Doxycycline (doxycycline monohydrate 100 mg oral tablet)?100?Milligram?By Mouth?2 timesa day Gabapentin (gabapentin 100 mg oral capsule)?2?capsule?By Mouth?2 times a day Insulin Lispro (insulin lispro 100 units/mL injectable solution)?2-10 units?Subcutaneous Injection?3 times a day before meals?<< Sliding Scale Comments >>150 - 199 ?? 2 units Call if less than [id number] - 249 ?? 4 units 250 - 299 ?? 6 units 300 - 349 ?? 8 units 350 - 399 ?? 10 units Call if greater than 400<< Sliding Scale Comments >> Lactulose (lactulose 10 gm/15 ml oral syrup)?30?Milliliter?20?gram?By Mouth?Daily?as needed?as needed for constipation Melatonin (melatonin 3 mg oral tablet)?3?Milligram?By Mouth?Daily at bedtime?as needed?Insomnia Metoprolol (metoprolol 50 mg oral tablet, extended release)?150?Milligram?3?tablet?By Mouth?Daily Miconazole Topical (miconazole 2% topical ointment)?See Instructions?Topically Daily to affected wound areas Miscellaneous Rx (FREESTYLE LITE BLOOD GLUCOSE STRIPS)?See Instructions?CHECK BLOOD SUGAR ONCE A DAY BEFORE BREAKFAST Multivitamin With Minerals (Multivit Therapeutic/Minerals Tablet)?1?tab(s)?By Mouth?Daily Pantoprazole (pantoprazole 40 mg oral delayed release tablet)?1?tab(s)?40?Milligram?By Mouth?Daily Simvastatin (simvastatin 20 mg oral tablet)?1?tablet?By Mouth?Daily at bedtime Warfarin (warfarin 5 mg oral tablet)?See Instructions?TAKE 1.5 TABLETS(7.5MG) BY MOUTH EVERY DAY ALTERNATE WITH 2 TABLETS(10MG) EVERY OTHER DAY ?? Medications Started Amoxicillin-Clavulanate (amoxicillin-clavulanate 500 mg-125 mg oral tablet)?1?tab(s)?By Mouth?2 times a day (END DATE 02/23/2023) Doxycycline (doxycycline monohydrate 100 mg oral tablet)?100?Milligram?By Mouth?2 timesa day (END DATE 02/23/2023) Miconazole Topical (miconazole 2% topical ointment)?See Instructions?Topically Daily to affected wound areas Medications Discontinued none Doses Changed none Allergies Allergies ?(Active and Proposed Allergies Only) CefTRIAXone Sodium? (Severity: Unknown severity, Onset: Unknown) ? PCP Follow-Up/Heads-Up 1. 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 Found to have an abnormal urinalysis and imaging concerning forpyelonephritis. Patient is now on an oral antibiotic regimen of Augmentin and doxycycline to be completed on 02/23. He was seen by OT, patient has good strength in his lower extremities however he is unable to bear weight at this time, which is prompting an evaluation by physical therapy who recommended he goes home. Spoke with daughter who requests he goes to rehab for OT because he has been bedbound for 1 year. On the day of discharge, patient is HDS, pain in wounds well controlled. ?? Cellulitis (L03.90) Cellulitis/pressure ulcers over right lateral hip, bilateral buttocks, no abscess ??Has a history of MRSA bacteremia and is on doxycycline for chronic suppressive therapy ??Initially presented with a fever 100.5 F, tachycardic, with a leukocytosis greater than 12 and a source of infection (skin, urine). Sepsis was likely secondary to cellulitis and pyelonephritis. ??Remains afebrile and without a leukocytosis ?? Recommendations: ??? Continue Augmentin 875mg BID and Doxycycline 100mg BID for a duration of 10 days (end date 02/23) ??? Wound care follow up in clinic, recommendations from inpatient: 1.) L posterior iliac crest (lower sacrum): Cleanse with Vashe. Pat dry. Apply TRIAD to wound bed (where slough and eschar is present). Apply Miconazole 2% ointment to Periwound BID. ??2.) L greater trochanter (hip): Cleanse with Vashe. Pat dry. Apply Triad dressing thinly to open areas daily. Reapply thin layer as needed with incontinence care. ??3.) Buttocks: Cleanse with Ph balanced cleanser. Pat dry. Apply miconazole 2% ointment to affected area. Apply BID. ??4.) Continue use of specialty bed/low air loss mattress ??5.) Turn and reposition every 2 hours and PRN ??6.) Continue incontinence care as well as moisture management; do not utilize Mepilex foam dressing with incontinence. ??7.) Continue to offload bony prominences ??8.) Float heels ??9.) Continue to provide optimal nutritional support ??10.) Provide Gaymar cushion to chair when patient OOB ?? Acute on chronic Anemia Hgb 11.3 on admission, down to 7.6. No source of significant bleeding but multiple wounds with subtle period bleeding and slightly supratherapeutic INR. H/H stabilized and Hgb at 8.7 now Anemia workup shows low iron, but ferritin and TIBC wnl, MCV normocytic, can be secondary to LOVELY Can continue home dose warfarin ? Pyelonephritis (N12) CT abdomen pelvis with evidence of bilateral pyelonephritis Continues to remain afebrile and without leukocytosis, no flank pain or CVA tenderness ??? Continue abx as above ?? Acute Kidney Injury on CKD (chronic kidney disease), stage III (N18.30), resolved KHADRA ??Now with acute kidney injury, Cr now downtrending to??1.6, at baseline (1.7-2.0)?? Was likely??in the setting of sepsis given concern for pyelonephritis and cellulitis in addition tovancomycin ??FeNa calculated 1.1%, intrinsic cause ?? Plan: ??? monitor BMP ?? Resolved Medications Sepsis: resolved, likely from cellulitis Lactic acidosis (E87.20): Resolved, downtrended to 1.8 ?? Chronic Stable Medical Conditions: Chronic atrial fibrillation (I48.20): INR today 2.8 within therapeutic range. Controlled diabetes mellitus (E11.9): Continue home diabetes medications Aortic stenosis (I35.0): s/p TAVR. Continue on Warfarin. ?? Objective Assessment and Plan Cellulitis (L03.90):??Wound care consulted Continue IV vancomycin and zosyn ?? Pyelonephritis (N12):??Continue abx as above ?? Lactic acidosis (E87.20):??Resolved, downtrended to 1.8 ?? CKD (chronic kidney disease), stage III (N18.30):??Now with acute kidney injury, Cr uptrending to 2.2 from baselin 1.7 ?? Chronic atrial fibrillation (I48.20):??Continue warfarin daily with goal INR 2-3 ?? Controlled diabetes mellitus (E11.9):??Continue ISS ?? Aortic stenosis (I35.0):??s/p TAVR Daily INR ?? Discharge Planning:? Vital Signs?? Temperature: 98.2 DegF (02/17/23 11:00:00) Temperature Route: Oral (02/17/23 11:00:00) Pulse Rate:??98 bpm??High (02/17/23 11:00:00) Respiratory Rate: 18 br/min (02/17/23 11:00:00) Systolic Blood Pressure: 128 mm Hg (02/17/23 11:00:00) Diastolic Blood Pressure: 76 mm Hg (02/17/23 11:00:00) Blood pressure sites: Arm, right (02/17/23 11:00:00) Mean Arterial Pressure: 77 mm Hg (02/17/23 04:00:00) Pulse Pressure: 52 mm Hg (02/17/23 11:00:00) Oxygen Saturation: 98 % (02/17/23 07:00:00) Mode of Delivery (Oxygen): Room air (02/17/23 11:00:00) Early Warning Score: 0 (02/17/23 11:55:34) ? . Physical Exam General: No acute distress, AAOx3 to person, place, and time HEENT: EOMI, NCAT Cardio: Sinus rhythm,??heart rate??85 bpm,??bilateral radial pulses 2/4 Respiratory: CTA bilaterally w/ no audible wheezes or rales, saturating on room air GI: soft, NT, nondistended, bowel sounds present : no flank pain or CVA tenderness noted on exam MSK: Seen moving upper extremities independently,??able to move lower extremities??against gravity??and able to roll around to his??sides in bed.?? Unable to bear weight still Skin:??right groin wound tender to palpation and erythematous, no crepitus on exam. left lower backwound with open sores noted, miconazole??applied to wound areas?? Extremities: no peripheral edema.?? Pneumoboots??on Neuro: No slurring of the speech, no facial droop Pending Results Add On Lab Order ordered on 02/12/2023 Add On Lab Order ordered on 02/16/2023 INR ordered on 02/12/2023 Urine Culture ordered on 02/12/2023 Patient Education Titles Cellulitis?? Discharge Instructions for Pyelonephritis?? Doxycycline Oral Tablet?? Amoxicillin/Clavulanate Oral Tablet?? Patient Instructions You initially came in due to a suspected infection in your right and leg wounds. You were treated with antibiotics and improved. You were also seen by occupational and physical therapists who determined you have good strength in your extremities. You were also found to have an infection in your kidney on imaging. Please continue taking augmenting and doxycycline until 02/23/2023 for infection of your skin and your kidney (called pyelonephritis). Follow up with wound care outpatient. Wound instructions: ??L posterior iliac crest (lower sacrum): Cleanse??and Pat dry. Apply TRIAD to wound bed (where slough and eschar is present). Apply Miconazole 2% ointment to Periwound BID. ??L greater trochanter (hip): Cleanse and pat dry. Apply Triad dressing thinly to open areas daily.Reapply thin layer as needed with incontinence care. ??Buttocks: Cleanse with Ph balanced cleanser. Pat dry. Apply miconazole 2% ointment to affected area. Apply BID. ??Turn and reposition every 2 hours and PRN ??Continue incontinence care as well as moisture management; do not utilize Mepilex foam dressing with incontinence. ??Continue to offload bony prominences ??Float heels Home Health Face to Face *Denotes mandatory waite ?? *I certify that this patient is under my care and that I or an allowed non- physician working with me had a face to face encounter with the patient on this date:??02/17/2023 12:05 ?? *The encounter with the patient was in whole, or in part, for the following medical condition, which is the primary diagnosis(es) for home health care:??Cellulitis (L03.90) Pyelonephritis (N12) Lactic acidosis (E87.20) CKD (chronic kidney disease), stage III (N18.30) Chronic atrial fibrillation (I48.20) Controlled diabetes mellitus (E11.9) Aortic stenosis (I35.0) ? *Select the indications for the discipline/s that are being arranged for this patient. Nursing (select all that apply): [_] None [x] Medication management (reconciliation, teaching)?? [x] Chronic disease management?? [x] Wound care and treatment?? [x] Home safety evaluation [x] Administer SQ/IM/IV medications?? [_] Cath care?? [_] Drain care?? [_] Trach or GT care?? Other _ Occupation Therapy (select all that apply): [_] None [x] ADL Management [x] Fall prevention training [x] Energy conservation [_] Cognitive training Other _ Physical Therapy (select all that apply): [_] None [x] Functional mobility training [x] Home exercise program to strengthen [x] Increase ROM?? [x] Falls prevention training [x] Home maintenance program for chronic disease Other _ Speech Therapy (select all that apply): [_] None [_] Swallow evaluation and training [_] Speech and language training [_] Cognitive training to process, organize, and/or recall information Other _ ? *Homebound due to (select all that apply): [x] Inability to leave home without assistance/supervision [x] Inability to ambulate without assistance [x] Pain [x] Decreased strength and endurance [_] Unsteady gait [x] Severe SOB and fatigue [x] Impaired transfers [x] Inability to negotiate stairs [_] Limited weight bearing [_] Mental status change? *Physician Signature:??Christina Beavers DO ?? *By signing this, I certify that I have personally evaluated the patient and agree with the findings and recommendations as documented above. ? Results Discharge Labs BLOOD COUNT & DIFF WBC 7.4 k/mm3 ()?? 02/17/2023 03:30 RBC 2.95 m/mm3 (Low)?? 02/17/2023 03:30 Hgb 8.7 Gm/dL (Low)?? 02/17/2023 03:30 Hct 27.7 % (Low)?? 02/17/2023 03:30 MCV 93.9 femtoliters ()?? 02/17/2023 03:30 MCH 29.5 pg ()?? 02/17/2023 03:30 MCHC 31.4 g/dL (Low)?? 02/17/2023 03:30 Platelet Count 268 k/mm3 ()?? 02/17/2023 03:30 RDW-SD 49.6 femtoliters (High)?? 02/17/2023 03:30 MPV 10.0 femtoliters ()?? 02/17/2023 03:30 Nucleated RBC (Automated) 0.0 #/100 WBC'S ()?? 02/17/2023 03:30 Abs. NRBC 0.0 k/mm3 ()?? 02/17/2023 03:30 Abs. Neut 7.7 k/mm3 (High)?? 02/13/2023 01:24 Abs. Lymph 0.8 k/mm3 ()?? 02/13/2023 01:24 Abs. [place] 0.8 k/mm3 ()?? 02/13/2023 01:24 Abs. Eo 0.3 k/mm3 ()?? 02/13/2023 01:24 Abs. Baso 0.0 k/mm3 ()?? 02/13/2023 01:24 Neut % 80.2 % (High)?? 02/13/2023 01:24 Lymph % 8.0 % (Low)?? 02/13/2023 01:24 [place] % 8.3 % ()?? 02/13/2023 01:24 Eos % 2.7 % ()?? 02/13/2023 01:24 Baso % 0.3 % ()?? 02/13/2023 01:24 Retic Count 0.9 % ()?? 02/16/2023 16:34 Retic Count Corrected 0.6 % (Low)?? 02/16/2023 16:34 Retic Production Index 0.4 % (Low)?? 02/16/2023 16:34 Imm Gran 0.5 % ()?? 02/13/2023 01:24 Abs. Imm Gran 0.1 k/mm3 ()?? 02/13/2023 01:24 ? CHEM GENERAL Sodium 138 mmol/L ()?? 02/17/2023 03:30 Potassium 4.4 mmol/L ()?? 02/17/2023 03:30 Chloride 107 mmol/L ()?? 02/17/2023 03:30 Bicarbonate Level 23 mmol/L ()?? 02/17/2023 03:30 Anion Gap 8 ()?? 02/17/2023 03:30 Glucose Level 82 mg/dL ()?? 02/17/2023 03:30 Glucose, POC 92 mg/dL ()?? 02/17/2023 07:30 BUN 23 mg/dL ()?? 02/17/2023 03:30 Creatinine-Blood 1.6 mg/dL (High)?? 02/17/2023 03:30 Estimated GFR Creatinine 45 ML/MIN/1.73 M2 ()?? 02/17/2023 03:30 Calcium 9.3 mg/dL ()?? 02/17/2023 03:30 Phosphorus 3.1 mg/dL ()?? 02/12/2023 04:20 Magnesium 1.5 mg/dL (Low)?? 02/12/2023 04:20 Protein, Total 5.8 Gm/dL (Low)?? 02/12/2023 04:20 Albumin 2.7 Gm/dL (Low)?? 02/12/2023 04:20 AG Ratio 0.9 ()?? 02/12/2023 04:20 LDH HEMOLYZED units/L ()?? 02/16/2023 00:27 Alkaline Phosphatase 108 units/L ()?? 02/12/2023 04:20 AST (SGOT) 25 units/L ()?? 02/12/2023 04:20 ALT (SGPT) 8 units/L ()?? 02/12/2023 04:20 Bilirubin, Total <0.2 mg/dL ()?? 02/16/2023 00:27 Vitamin B12 Level 1771 pg/mL (High)?? 02/16/2023 00:27 Folic Acid Level HEMOLYZED ng/mL ()?? 02/16/2023 00:27 Lactate 1.8 mmol/L ()?? 02/12/2023 07:49 Iron Level 39 mcg/dL (Low)?? 02/16/2023 00:27 Iron Binding Capacity, Unsaturated 99 mcg/dL (Low)?? 02/16/2023 00:27 Iron Binding Capacity, Estimated Total 138 mcg/dL (Low)?? 02/16/2023 00:27 % Iron Saturation 28 % ()?? 02/16/2023 00:27 Ferritin Level 172 ng/mL ()?? 02/16/2023 00:27 ? COAG INR 2.8 (High)?? 02/17/2023 03:30 Protime (PT) 27.4 seconds (High)?? 02/17/2023 03:30 APTT 46.4 seconds (High)?? 02/11/2023 17:48 ? HEME OTHER Hold Blue Top SPECIMEN DISCARDED AFTER 4 HOURS. ()?? 02/12/2023 09:45 ? IMMUNOLOGY GENERAL Haptoglobin 175 mg/dL ()?? 02/16/2023 00:27 ? MISC. CHEMISTRY Hold Green Top SPECIMEN DISCARDED AFTER 1 WEEK ()?? 02/11/2023 17:48 ? UA/URINALYSIS Appear/Color, Urine YELLOW ()?? 02/11/2023 20:43 Specific [place], Urine 1.018 ()?? 02/11/2023 20:43 pH, Urine 6.0 ()?? 02/11/2023 20:43 Albumin, Urine TRACE (Abnormal)?? 02/11/2023 20:43 Glucose, Urine NEGATIVE ()?? 02/11/2023 20:43 Ketones, Urine NEGATIVE ()?? 02/11/2023 20:43 Bilirubin, Urine NEGATIVE ()?? 02/11/2023 20:43 Hemoglobin, Urine TRACE (Abnormal)?? 02/11/2023 20:43 Nitrite, Urine POSITIVE (Abnormal)?? 02/11/2023 20:43 Leukocyte, Urine 3+ (Abnormal)?? 02/11/2023 20:43 Urobilinogen NORMAL mg/dL ()?? 02/11/2023 20:43 WBC's, Urine >182 /HPF (High)?? 02/11/2023 20:43 RBC's, Urine 3 /HPF ()?? 02/11/2023 20:43 Bacteria MODERATE HPF (Abnormal)?? 02/11/2023 20:43 Squamous Epith 2 /HPF ()?? 02/11/2023 20:43 Mucus SLIGHT /LPF ()?? 02/11/2023 20:43 Hold Urine Culture Testing available 48 hours from time of collection. ()?? 02/11/2023 20:43 ? URINE OTHER Creatinine, Urine Random 42.8 mg/dL ()?? 02/14/2023 10:41 Sodium, Urine Random 25 mmol/L ()?? 02/14/2023 10:41 Est Creatinine Clearance 37.64 mL/min ()?? 02/17/2023 04:27 ? VIROLOGY COVID-19 by RT-PCR NEGATIVE ()?? 02/11/2023 17:44 ? Microbiology ?? Blood Culture?? Completed?? Source: Blood Body Site: ?? Collected Dt/Tm: 02/11/2023 16:58 Last Updated Dt/Tm: 02/11/2023 16:59 ?SPECIMEN DESCRIPTION : BLOOD ??L ACSPECIAL REQUESTS : NONECULTURE : NO GROWTH 5 DAYS.REPORT STATUS : FINAL 02/16/2023 Blood Culture #2?? Completed?? Source: Blood Body Site: ?? Collected Dt/Tm: 02/11/2023 16:58 Last Updated Dt/Tm: 02/11/2023 16:59 ?SPECIMEN DESCRIPTION : BLOOD ??RACSPECIAL REQUESTS : NONECULTURE : NO GROWTH 5 DAYS.REPORT STATUS : FINAL 02/16/2023 COVID-19 (Novel Coronavirus), Rapid PCR?? Completed?? Source: Nasal Body Site: Nose Collected Dt/Tm: 02/11/2023 16:58 Last Updated Dt/Tm: 02/11/2023 19:45 ? _35 minutes spent on discharge ?? Patient seen??and discussed with attending physician Dr. Bear ?? Christina Beavers??DO Internal Medicine PGY2 * Gail Fernandes RN: PERFORM Event Display: Patient Education/Instruction Authored Date: [id number] Inpatient Adult Discharge Instructions [address] [address] Name: KENDRA KEARNS : 1945 Visit: 02/11/2023 22:30:00 Current Date: 02/17/2023 14:25 Account: [id number] Inpatient Adult Discharge Instructions We would like [...] and their families. Surveys are administered by [employer] ?? If further treatment with your primary care physician or another doctor is recommended, it is important for you to keep the appointment. Call your primary care physician or return to the Emergency Department immediately if your condition worsens, fails to improve, or new symptoms develop. If you need to find a doctor, you can call [facility] Link for a referral at [phone] or toll free at [phone] or log in to [email or web address].. ?? You can view and manage your care through the patient portal or by using a health care mamta of your choosing. [employer] is a website that allows you to securely view your medical information including your hospital discharge summary, office visit summaries, medications and follow-up visits. You can also request appointments, renew medications, and request access to your medical information using a health care mamta of your choosing, or just ask a question. You can enroll at [email or web address] or register during your next office visit. You have been discharged from [facility], Patient Care Unit: S3. If you have any questions regarding these instructions after you leave, please call us and we will be happy to assist you. [facility] Your Care Team Attending Physician Angy Bear DO Discharging Providers Christina Beavers DO Reason for Admission from home, bed bound, has chronic wound to legs, family and pt concern for red wounds to bilateral legs and lower back. Your Diagnosis Pyelonephritis Cellulitis CKD (chronic kidney disease), stage III Chronic atrial fibrillation Controlled diabetes mellitus Aortic stenosis Lactic acidosis Tests Performed Below is a partial list of the tests performed during your hospitalization. You may have had other tests and procedures not included in this list. Please discuss all test results with your provider. Basic Metabolic Panel BILIRUBIN,TOTAL CBC CBC w/ Differential Comprehensive Metabolic Panel COVID-19 (Novel Coronavirus), Rapid PCR FERRITIN FOLIC ACID GLUCOSE POC H + H HAPTOGLOBIN HOLD BLUE TUBE HOLD GREEN TUBE INR IRON & TIBC Lactate Level Lactic Acid Level LDH Magnesium Level Na Urine Phosphorus Level PTT RETICULOCYTE COUNT Urinalysis w/hold for Urine Culture Urine Creatinine VITAMIN B12 CT Abd/Pelvis W/ IV Contrast Only XR Chest Portable Primary Care Provider Vladimir Keys MD Advance Directive Health Care Proxy on File Yes - Health Care Proxy Yes - MOLST Discharge Vitals Temperature: 98.1 DegF Height: 177 cm Pulse Rate:??52 bpm??Low Weight: 115.6 kg Respiratory Rate: 20 br/min Body Mass Index:??36.9 kg/m2??Critical Systolic Blood Pressure: 136 mm Hg Body surface area: 2.38 Diastolic Blood Pressure: 62 mm Hg ?? Oxygen Saturation: 100 % ?? Studies Pending All tests and labs ordered during this hospital stay have been completed unless listed below. Please discuss all pending results with your provider listed above in these instructions. ?? Add On Lab Order (Lab Add On Order) INR Urine Culture What to do next Instructions From Your Doctor You initially came in due to a suspected infection in your right and leg wounds. You were treated with antibiotics and improved. You were also seen by occupational and physical therapists who determined you have good strength in your extremities. You were also found to have an infection in your kidney on imaging. Please continue taking augmenting and doxycycline until 02/23/2023 for infection of your skin and your kidney (called pyelonephritis). Follow up with wound care outpatient. Wound instructions: ??L posterior iliac crest (lower sacrum): Cleanse??and Pat dry. Apply TRIAD to wound bed (where slough and eschar is present). Apply Miconazole 2% ointment to Periwound BID. ??L greater trochanter (hip): Cleanse and pat dry. Apply Triad dressing thinly to open areas daily.Reapply thin layer as needed with incontinence care. ??Buttocks: Cleanse with Ph balanced cleanser. Pat dry. Apply miconazole 2% ointment to affected area. Apply BID. ??Turn and reposition every 2 hours and PRN ??Continue incontinence care as well as moisture management; do not utilize Mepilex foam dressing with incontinence. ??Continue to offload bony prominences ??Float heels Discharge Orders Discharge Medications KENDRA KEARNS :1945 Visit Date:02/11/2023 Medications: Please continue your medications until treatment is completed or stopped by your provider. Medications not listed below should be discontinued. Discuss any questions related to medications with your provider. What How Much When Why Instructions Next Dose New Amoxicillin-Clavulanate (amoxicillin-clavulanate 500 mg-125 mg oral tablet) 1 tab(s) Oral Twice a day Pickup at [facility] 3 8/7 PM New Miconazole Topical (miconazole 2% topical ointment) See instructions Topically Daily to affected wound areas ?? Pickup at [facility] 3 02/18 AM Changed Doxycycline (doxycycline monohydrate 100 mg oral tablet) 100 Milligram Oral Twice a day Pickup at [facility] 3 02/17 PM Unchanged Acetaminophen (acetaminophen 325 mg oral tablet) 2 tab(s) Oral Every 4 hours as needed for as needed for fever / pain as needed Unchanged Cyanocobalamin (B-12 1000 mcg oral tablet, extended release) 1 tab(s) Oral Daily Anemia 02/18 AM Unchanged Docusate (docusate sodium 150 mg/ 15 ml oral liquid) 10 Milliliter Oral Twice a day as needed for Constipation as needed Unchanged Gabapentin (gabapentin 100 mg oral capsule) 2 capsule Oral Twice a day 02/17 PM Unchanged Insulin Lispro (insulin lispro 100 units/ [...] 400 << Sliding Scale Comments >> ?? with Dinner Unchanged Lactulose (lactulose 10 gm/ 15 ml oral syrup) 30 Milliliter Oral Daily as needed for as needed for constipation as needed Unchanged Melatonin (melatonin 3 mg oral tablet) 3 Milligram Oral Daily at Bedtime as needed for Insomnia as needed Unchanged Metoprolol (metoprolol 50 mg oral tablet, extended release) 3 tab(s) Oral Daily Chronic atrial fibrillation 02/18 AM Unchanged Multivitamin With Minerals (Multivit Therapeutic/ Minerals Tablet) 1 tab(s) Oral Daily 02/18 AM Unchanged Pantoprazole (pantoprazole 40 mg oral delayed release tablet) 1 tab(s) Oral Daily 02/18 AM Unchanged Simvastatin (simvastatin 20 mg oral tablet) 1 tab(s) Oral Daily at Bedtime 02/17 Bedtime Unchanged Warfarin (warfarin 5 mg oral tablet) See instructions TAKE 1.5 TABLETS(7.5MG) BY MOUTH EVERY DAY ALTERNATE WITH 2 TABLETS(10MG) EVERY OTHER DAY ?? resume regular schedule Pharmacy Information [facility] 3: [address], [place] [id number] [phone] ?? What How Much When Comments Stop Taking Amoxicillin (amoxicillin 500 mg oral tablet) 4 tab(s) Oral Once Please take 4 tablets (2,000 mg) by mouth one hour prior to urinary procedure. ?? Test Results Below is a partial list of the most recent Laboratory test results done prior to this discharge. You may have had other tests and procedures not included in this list. Please discuss all test resultswith your provider. Est Creatinine Clearance - 37.64 mL/min (02/17/2023) Basic Metabolic Panel (02/17/2023) ???Sodium - 138 mmol/L???Potassium - 4.4 mmol/L???Chloride - 107 mmol/L???Bicarbonate Level - 23 mmol/L???Anion Gap - 8???Glucose Level - 82 mg/dL???BUN - 23 mg/dL???Creatinine-Blood - 1.6 mg/dL???Estimated GFR Creatinine - 45 ML/MIN/1.73 M2???Calcium - 9.3 mg/dL BILIRUBIN,TOTAL (02/16/2023) ? ?Bilirubin, Total - <0.2 mg/dL CBC (02/17/2023) ???WBC - 7.4 k/mm3???RBC - 2.95 m/mm3???Hgb - 8.7 Gm/dL???Hct - 27.7 %???MCV - 93.9 femtoliters???MCH - 29.5 pg???MCHC - 31.4 g/dL???Platelet Count - 268 k/mm3???RDW-SD - 49.6 femtoliters???MPV - 10.0 femtoliters???Nucleated RBC (Automated) - 0.0 #/100 WBC'S???Abs. NRBC - 0.0 k/mm3 CBC w/ Differential (02/13/2023) ???WBC - 9.5 k/mm3???RBC - 3.19 m/mm3???Hgb - 9.4 Gm/dL???Hct - 30.2 %???MCV - 94.7 femtoliters???MCH - 29.5 pg???MCHC - 31.1 g/dL???Platelet Count - 225 k/mm3???RDW-SD - 51.2 femtoliters???MPV - 10.3 femtoliters???Nucleated RBC (Automated) - 0.0 #/100 WBC'S???Abs. NRBC - 0.0 k/mm3???Abs. Neut - 7.7 k/mm3???Abs. Lymph - 0.8 k/mm3???Abs. [place] - 0.8 k/mm3???Abs. Eo - 0.3 k/mm3???Abs. Baso - 0.0 k/mm3???Neut % - 80.2 %???Lymph % - 8.0 %???[place] % - 8.3 %???Eos % - 2.7 %???Baso % - 0.3 %???Imm Gran - 0.5 %???Abs. Imm Gran - 0.1 k/mm3 Comprehensive Metabolic Panel (02/12/2023) ???Sodium - 135 mmol/L???Potassium - 5.3 mmol/L???Chloride - 102 mmol/L???Bicarbonate Level - 22 mmol/L???Anion Gap - 11???Glucose Level - 76 mg/dL???BUN - 34 mg/dL???Creatinine-Blood - 1.7 mg/dL???Estimated GFR Creatinine - 39 ML/MIN/1.73 M2???Calcium - 9.5 mg/dL???Protein, Total - 5.8 Gm/dL???[place] min - 2.7 Gm/dL???AG Ratio - 0.9???Alkaline Phosphatase - 108 units/L???AST (SGOT) - 25 units/L???ALT (SGPT) - 8 units/L???Bilirubin, Total - 0.3 mg/dL COVID-19 (Novel Coronavirus), Rapid PCR (02/11/2023) ???COVID-19 by RT-PCR - NEGATIVE FERRITIN (02/16/2023) ???Ferritin Level - 172 ng/mL FOLIC ACID (02/16/2023) ???Folic Acid Level - HEMOLYZED GLUCOSE POC (02/17/2023) ???Glucose, POC - 125 mg/dL H + H (02/16/2023) ???Hgb - 8.6 Gm/dL???Hct - 27.7 % HAPTOGLOBIN (02/16/2023) ???Haptoglobin - 175 mg/dL HOLD BLUE TUBE (02/12/2023) ???Hold Blue Top - SPECIMEN DISCARDED AFTER 4 HOURS. HOLD GREEN TUBE (02/11/2023) ???Hold Green Top - SPECIMEN DISCARDED AFTER 1 WEEK INR (02/17/2023) ???INR - 2.8???Protime (PT) - 27.4 seconds IRON & TIBC (02/16/2023) ???Iron Level - 39 mcg/dL???Iron Binding Capacity, Unsaturated - 99 mcg/dL???Iron Binding Capacity,Estimated Total - 138 mcg/dL???% Iron Saturation - 28 % Lactate Level (02/11/2023) ???Lactate - 4.2 mmol/L Lactic Acid Level (02/12/2023) ???Lactate - 1.8 mmol/L LDH (02/16/2023) ???LDH - HEMOLYZED Magnesium Level (02/12/2023) ???Magnesium - 1.5 mg/dL Na Urine (02/14/2023) ???Sodium, Urine Random - 25 mmol/L Phosphorus Level (02/12/2023) ???Phosphorus - 3.1 mg/dL PTT (02/11/2023) ???APTT - 46.4 seconds RETICULOCYTE COUNT (02/16/2023) ???Retic Count - 0.9 %???Retic Count Corrected - 0.6 %???Retic Production Index - 0.4 % Urinalysis w/hold for Urine Culture (02/11/2023) ???Appear/Color, Urine - YELLOW???Specific [place], Urine - 1.018???pH, Urine - 6.0???Albumin, Urine - TRACE???Glucose, Urine - NEGATIVE???Ketones, Urine - NEGATIVE???Bilirubin, Urine - NEGATIVE???Hemoglobin, Urine - TRACE???Nitrite, Urine - POSITIVE???Leukocyte, Urine - 3+???Urobilinogen - NORMAL???WBC's, Urine - >182 /HPF? ?RBC's, Urine - 3 /HPF? ?Bacteria - MODERATE? ?Squamous Epith - 2 /HPF???Mucus - SLIGHT???Hold Urine Culture - Testing available 48 hours from time of collection. Urine Creatinine (02/14/2023) ???Creatinine, Urine Random - 42.8 mg/dL VITAMIN B12 (02/16/2023) ???Vitamin B12 Level - 1771 pg/mL Allergies (NKA means No Known Allergies) CefTRIAXone Sodium Problems Active Problems??(27) Anemia?? Aortic stenosis?? Chronic atrial fibrillation?? Chronic total occlusion of coronary artery?? Chronic ulcer of buttock?? CKD (chronic kidney disease), stage III?? Controlled diabetes mellitus?? COVID-19?? Deficiency of vitamin B12?? Fatigue?? Gout?? Hyperlipidemia?? Hypersensitivity?? Hypertension?? LBBB (left bundle branch block)?? Leg pain?? Mitral valve stenosis, non-rheumatic?? Osteomyelitis of foot?? Pancreatic cyst?? Phimosis of penis?? Pressure ulcer of buttock?? Prosthetic valve endocarditis?? S/P TAVR (transcatheter aortic valve replacement)?? Severe obesity (BMI 35.0-39.9) with comorbidity?? Systolic CHF, chronic?? Type 2 diabetes mellitus?? UTI (urinary tract infection)?? Education Materials Below is the list of Educational Leaflet Providered with your Discharge Instructions. Cellulitis?? Discharge Instructions for Pyelonephritis?? Doxycycline Oral Tablet?? Amoxicillin/Clavulanate Oral Tablet?? Valuables and Belongings I fully understand and agree that [facility] accepts no responsibility for all my [...] Review of Valuable and Belonging List: With patient, With family Possessions released to: No Personal Devices. Date for Pt to Sign Valuables/Belongings: 02/17/23 14:21:00 ?? Other Discharge Information ?? Wound Assessment?? Wound Assessment?? Wound Location I: buttocks Wound Location II: left trochanter Wound Location III: left posterior trochanter ?? Case Management Discharge Plan?? Discharge Plan?? Discharge Agency Information?? Discharge Level of Care at Discharge: Homehealth/VNA Name of Agency #1: [facility] Discharge Nursing Homes/Rehab Facilities: [facility] Service Categories #1: Occupational Therapy, Physical Therapy, Detention Discharge VNA/Hospice/Home Care: [facility] [phone] ? Pulmonary Rehab Status?? Pulmonary Rehab Discharge Status?? Respiratory Rate: 20 br/min ? Common Emergency Awareness Tips IS IT [...] are strongly encouraged to quit. Please call [facility] Link at [phone] or [phone] or log in to [email or web address] for referrals to smoking cessation programs. ?? 548 Suicide & Crisis Lifeline is available 03/02 if you or someone you know needs to find a reason to keep living. By calling 009 you'll be connected to a skilled, trained counselor at a crisis center in your area. INPATIENT DISCHARGE INSTRUCTIONS SIGNATURE PAGE KENDRA KEARNS Location:[facility] Registration Date and Time:02/11/2023 22:30 EDT Primary Care Physician: Vladimir Keys MD, Attending Physician: Angy Bear DO, I KENDRA KEARNS, have received the above patient education materials/instructions and have verbalized understanding. If ambulance or transport services are being used I further acknowledge being given a choice of service. ?? If you need to contact me, please call me at this number: . Patient/Equipment Detailer Name: Patient/Equipment Detailer Signature: Relationship to Patient: Witness Name/Signature: Date: * Christina Beavers DO: PERFORM Event Display: Patient Education Leaflets Authored Date: [id number] Cellulitis ?? [id number] Cellulitis Cellulitis is an infection of the deep layers of skin. A break in the skin, such as a cut or scratch, can let bacteria under the skin. Cellulitis causes the affected skin to become red, swollen, warm, and sore. The reddened areas havea border you can see. An open sore may leak fluid (pus). You may have a fever, chills, and pain. Cellulitis is treated with antibiotics taken for 7 to 10 days. An open sore may be cleaned and covered with cool wet gauze. Symptoms should get better 1 to 2 days after treatment is started. Make sure to take all the antibiotics for the full number of days until they are gone. Keep taking the medicine even if your symptoms go away. If not treated, cellulitis can get into the bloodstream and lymph nodes. The infection can then spread throughout the body. This causes serious illness. Home care Follow these tips: ??? Limit the use of the part of your body with cellulitis.? If the infection is on your leg, keep your leg raised while sitting. This helps reduce swelling. ??? Take all of the antibiotic medicine exactly as directed until it is gone. Don't miss any doses, especially duringthe first 7 days. Finish taking all of the medicine even when your symptoms get better. ??? Keep the affected area clean and dry. ??? Wash your hands with soap and clean, running water before and after touching your skin. Anyone else who touches your skin should also wash his or her hands. Don't share towels. ?? Follow-up care Follow up with your healthcare provider, or as advised. If your infection doesn't go away after finishing the first antibiotic, your healthcare provider will prescribe a different one. ?? When to seek medical advice Call your healthcare provider right away if any of these occur: ??? Red areas that spread ??? Swelling or pain that gets worse ??? Fluid leaking from the skin (pus) ??? Fever higher of 100.4?? F (38.0?? C) or higher after 2 days on antibiotics ?? Last Reviewed Date: 2021 ?? [id number] [employer]. All rights reserved. This information is not intended as a substitute for professional medical care. Always follow your healthcare professional's instructions. ?? * Christina Beavers DO: PERFORM Event Display: Patient Education Leaflets Authored Date: [id number] Discharge Instructions for Pyelonephritis ?? 72496 Discharge Instructions for Pyelonephritis You have been told you have a kidney infection. This is called pyelonephritis. The infection can beserious. It can damage your kidneys and cause bacteria to enter your bloodstream. You were treated in the hospital. Once you return home, here???s what you can do at home to aid in your recovery and prevent future infections. Home care ??? Take all the medicine you were prescribed, even if you feel better. Not finishing themedicine can make the infection come back. It may also make a future infection harder to treat. ???Unless told not to by your healthcare provider, drink 8 to 12 glasses of fluid every day. Clear fluids, such as water, are best. This may help flush the infection from your system. ?? Preventing future infection ??? Keep your genital area clean. Use mild soap. Rinse with water. ??? If you are a woman, always wipe the genital area from front to back. ??? Urinate frequently. Don't hold urine in your bladder for a long time. ??? Always urinate after having sex. ??? Practice safe sex. Protect yourself and your partner from sexually transmitted infections (STIs). ?? Follow-up care Follow up with your healthcare provider, or as advised. And see your??healthcare provider??for regular lab tests as directed. ?? When to call your healthcare provider Call your??healthcare provider??right away if you have any of the following: ??? Decreased urine output or trouble urinating ??? Severe pain in the lower back or flank ??? Fever of 100.4??F (38??C) or higher, or as directed by your healthcare provider ??? Shaking chills ??? Vomiting ??? Blood in your urine ??? Dark-colored or foul-smelling urine ??? Nausea or other problems that prevent you from taking your prescribed medicine ??? New or worsening symptoms ?? Last Reviewed Date: 2022 ?? [id number] [employer]. All rights reserved. This information is not intended as a substitute for professional medical care. Always follow your healthcare professional's instructions. ?? * Christina Beavers DO: PERFORM Event Display: Patient Education Leaflets Authored Date: [id number] Doxycycline Oral Tablet ?? [id number] Doxycycline Oral Tablet Uses For treating bacterial infection. ?? Instructions Take the medicine with 250 mL (1 cup) of water. Take on empty stomach - 1 hour before or 2 hours after eating. Sit or stand upright for 30 minutes after taking the medicine. Do not lie down. Keep the medicine at room temperature. Avoid heat and direct light. Do not take any antacid or vitamins with magnesium, calcium, aluminum, or iron for 2 hours before and 2 hours after taking this medicine. This medicine can make you sensitive to the sun. Use sunscreen or protective clothing when in sun. If you forget to take a dose on time, take it as soon as you remember. If it is almost time for thenext dose, do not take the missed dose. Return to your normal schedule. Do not take 2 doses at one time. Drug interactions can change how medicines work or increase risk for side effects. Tell your healthcare providers about all medicines taken. Include prescription and ocra-env-wimougf medicines, vitamins, and herbal medicines. Speak with your doctor or pharmacist before starting or stopping any medicine. Keep using this medicine for the full number of days that it is prescribed. Do not stop the medicine even if you start to feel better. This medicine can cause permanent change in teeth color in children. ?? Cautions Tell your doctor and pharmacist if you ever had an allergic reaction to a medicine. Do not use the medication any more than instructed. Contact your doctor if you notice a change in the amount or darkening of your urine. Please tell your doctor if you have moderate to severe diarrhea while on this medicine. Do not treat the diarrhea with iyny-kji-onbmoei diarrhea medicine. This medicine passes into breast milk. Ask your doctor before . This medicine can hurt a new baby in the womb. If you become while on this medicine, tell your doctor immediately. Your doctor may switch you to a different medicine. Do not share this medicine with anyone who has not been prescribed this medicine. ?? Side Effects The following is a list of some common side effects from this medicine. Please speak with your doctor about what you should do if you experience these or other side effects. ??? diarrhea ??? nausea and vomiting ??? stomach upset or abdominal pain ??? yeast infection of mouth ??? vaginal itching or yeast infection Call your doctor or get medical help right away if you notice any of these more serious side effects: ??? swelling in the neck or throat ??? difficulty swallowing ??? blurring or changes of vision A few people may have an allergic reaction to this medicine. Symptoms can include difficulty breathing, skin rash, itching, swelling, or severe dizziness. If you notice any of these symptoms, seek medical help quickly. ?? Extra Please speak with your doctor, nurse, or pharmacist if you have any questions about this medicine. ?? [email or web address] IMPORTANT NOTE: This document tells you briefly how to take your medicine, but it does not tell youall there is to know about it. Your doctor or pharmacist may give you other documents about your medicine. Please talk to them if you have any questions. Always follow their advice. There is a more complete description of this medicine available in Malaysian. Scan this code on your smartphone or tablet or use the web address below. You can also ask your pharmacist for a printout. If you have any questions, please ask your pharmacist. The display and use of this drug information is subject to Terms of Use. Copyright(c) 2022 [employer]. ?? [employer]. All rights reserved. This information is not intended as a substitute for professional medical care. Always follow your healthcare professional's instructions. ?? Patient Care team information Care Team Personnel Name: Kaitlyn De La Paz RN Position: [facility] RN Member Role: Primary Care Nurse Name: Purnima Esposito RN Position: [facility] RN Member Role: Primary Care Nurse Name: Tran Ireland RN Position: [facility] RN Member Role: Primary Care Nurse Name: Mitzy Lim RN Position: [facility] RN Member Role: Primary Care Nurse Name: Rebeka Dunbar RN Position: [facility] RN Member Role: Primary Care Nurse Name: Mary Beth Argueta RN Position: [facility] SN RN Member Role: Primary Care Nurse Name: Rosalinda Espinoza RN Position: S RN Member Role: Primary Care Nurse Name: Carla Reid RN Position: [facility] SN RN Member Role: Primary Care Nurse Name: Natalee Farrell RN Position: S RN Member Role: Primary Care Nurse Name: Lois Serrano Position: [facility] RN Member Role: Primary Care Nurse Name: Jasmeet Del Castillo RN Position: [facility] RN Member Role: Primary Care Nurse Name: Eric Newton RN Position: [facility] RN Member Role: Primary Care Nurse Name: Harleen Clark RN Position: [facility] AMB Nurse Member Role: Primary Care Nurse Name: Roger Romero RN Position: [facility] RN Member Role: Primary Care Nurse Name: Manasa Weinstein RN Position: [facility] RN Member Role: Primary Care Nurse Name: Reina Romeo RN Position: [facility] RN Member Role: Primary Care Nurse Name: Mark Ruffin Position: [facility] RN Member Role: Primary Care Nurse Name: Diana Patton RN Position: [facility] RN Member Role: Primary Care Nurse Name: Meera Camacho RN Position: [facility] RN Member Role: Primary Care Nurse Name: Ila Carter RN Position: [facility] RN Member Role: Primary Care Nurse Name: Imelda Brand RN Position: [facility] RN Member Role: Primary Care Nurse Name: Joao Downs RN Position: [facility] RN Member Role: Primary Care Nurse Name: Mitzy Mora Position: [facility] RN Member Role: Primary Care Nurse Name: Ward Alcantar RN Position: [facility] RN Member Role: Primary Care Nurse Name: Karla Holder RN Position: [facility] RN Member Role: Primary Care Nurse Name: Eric Aceves III, RN Position: [facility] RN Member Role: Primary Care Nurse Name: Danay Galindo RN Position: [facility] RN Member Role: Primary Care Nurse Name: Ila Palm PharmD Position: [facility] Associate Professional Member Role: Lifetime Consulting Provider Address: Address: [address] [place] [address]- [place] Name: Ara De Santiago RN Position: [facility] Onco RN Member Role: Primary Care Nurse Name: Jacky Love Position: [facility] Associate Professional Member Role: Lifetime Consulting Provider Address: Address: [address] [place] [address]- Name: Micki Quezada RN Position: [facility] RN Member Role: Primary Care Nurse Name: Fatmata Alvarez RN Position: [facility] RN Member Role: Primary Care Nurse Name: Ila Hamm RN Position: [facility] RN Member Role: Primary Care Nurse Name: Owen Kuhn MD Position: [facility] Renal MD Member Role: Lifetime Consulting Physician Address: Address: [address] [place] [address] [address] [facility] [place] [address]- Name: Sharon Christopher RN Position: [facility] RN Member Role: Primary Care Nurse Name: Praveena Raymond RN Position: [facility] RN Member Role: Primary Care Nurse Name: Marcella Nichols RN Position: [facility] RN Member Role: Primary Care Nurse Name: Margaret Hurtado RN Position: [facility] SN RN Member Role: Primary Care Nurse Name: Noe Doyle MD Position: [facility] Renal MD Member Role: Lifetime Consulting Physician Address: Address: [address] [place] [address] [facility] [place] [address]- Name: Li Lu LPN Position: [facility] RN Member Role: Primary Care Nurse Name: Tete Rodríguez RN Position: [facility] RN Member Role: Primary Care Nurse Name: Hannah Mcintyre RN Position: [facility] RN Member Role: Primary Care Nurse Name: Tatiana Mueller RN Position: [facility] RN Member Role: Primary Care Nurse Name: Margarita Franco RN Position: [facility] RN Member Role: Primary Care Nurse Name: Nicole Pradhan RN Position: [facility] RN Member Role: Primary Care Nurse Name: Cherry Nguyen RN Position: [facility] RN Member Role: Primary Care Nurse Name: Vladimir Keys MD Position: [facility] Physician - Primary Care Member Role: PCP Address: Address: [address] [place] [address], [address] [place] [address]- [place] Name: Remedios Ramírez RN Position: [facility] RN Member Role: Primary Care Nurse Name: Ashlee Sanders RN Position: [facility] RN Member Role: Primary Care Nurse Name: Theresa Geiger RN Position: [facility] RN Member Role: Primary Care Nurse Name: Talat Saldivar RN Position: [facility] RN Member Role: Primary Care Nurse Name: Den Wilde RN Position: [facility] SN RN Member Role: Primary Care Nurse Name: Rosalino Hernadez RN Position: [facility] RN Member Role: Primary Care Nurse Name: Noemí Ny RN, I Position: [facility] RN Member Role: Primary Care Nurse Name: Chloe Prado RN Position: [facility] RN Member Role: Primary Care Nurse Name: Bryson CROOKS Attending Position: [facility] ED Medicine MD Name: Joan Beltrán RN Position: [facility] ED RN W/OE and Tasks Member Role: Patient Care Provider Name: Shan Garner Position: [facility] ED OA Charge Member Role: ED Associate Name: Braden Moreno Position: [facility] ED TA [facility] Member Role: Patient Care Provider Care Team Related Persons Name: RETA, DESMOND Address: home [address] [place] [address]
--- OUTSIDE RECORDS SUMMARY | 2024-01-20 06:15 | XMS_ITS | Continuity of Care Document ---
Author Organization [facility] Address [address] [place] [address]- Care Team Providers Care Railroad Track Repair Supervisor Name Role Phone Vladimir Keys MD Primary Care Physician Encounter [facility] Date(s): 02/21/22 - 03/23/22 [facility] [address] [place], [place] [address] Attending Physician: Tanmay Lin Admitting [...] 12/13/21 13:59:00 EDT, Route to Pharmacy Electronically, [facility] #[id number], 180, cm, 12/13/21 12:56:00 EDT, Height, 136.6, [...] tablet, 1 Refills, Maintenance, 01/24/22 16:36:00 EDT, [facility] #[id number], 180, cm, 01/24/22 16:01:00 EDT, Height, 136.6, kg, 09/08/21 16:31:00 EST, Dry Weight Start Date: 01/24/22 Status: Ordered cephalexin monohydrate 250 mg oral capsule 1 capsule = 250 mg, By Mouth, Every 12 hours, # 180 capsule, 1 Refills, Maintenance, 12/13/21 13:55:00 EDT, Capsule, [facility] #[id number], 180, cm, 12/13/21 12:56:00 EDT, Height, 136.6, [...] 0 Refills, Maintenance, 12/13/21 14:03:00 EDT, Tablet, [facility] #[id number], 180, cm, 12/13/21 12:56:00 EDT, Height, 136.6, kg, 09/08/21 16:31:00 EST, Dry Weight Start Date: 12/13/21 Status: Ordered gabapentin 100 mg oral capsule 100 mg, 1, capsule, By Mouth, 2 times a day, # 60 capsule, Refills 2, Tot. Refills 2, Maintenance, 01/24/22 16:33:00 EDT, Route to Pharmacy Electronically, [facility] #[id number], 180, cm, 01/24/22 16:01:00 EDT, Height, 136.6, kg, 09/08/21 16:31:0... Start Date: 01/24/22 Status: Ordered glipiZIDE 2.5 mg oral tablet, extended release 1 tablet = 2.5 mg, By Mouth, Daily, # 90 tablet, 0 Refills, Maintenance, 12/13/21 14:03:00 EDT, ER Tablet, [facility] #[id number], Partial fill upon patient request if the [...] EDT, Route to Pharmacy Electronically, [facility] #[id number], 180, cm, 09/22/21 20:27:00 EST, Height, 136.6, [...] 12/14/21 1:07:00 EDT, Route to Pharmacy Electronically, [facility] #[id number], 180, cm, 12/13/21 12:56:00 EDT, Height, 136.6, [...] 2 Refills, Maintenance, 12/13/21 13:55:00 EDT, Tablet, [facility] #[id number], 180, cm, 12/13/21 12:56:00 EDT, Height, 136.6, [...] tablet, 2 Refills, Maintenance, 12/13/21 14:00:00 EDT, [facility] #[id number], 180, cm, 12/13/21 12:56:00 EDT, Height, 136.6, [...] Team Personnel Name: Vladimir Keys MD Address: [address] [place] [address], [address] [place], [place] [address]
--- OUTSIDE RECORDS SUMMARY | 2024-01-20 06:15 | XMS_ITS | Continuity of Care Document ---
Author Organization [facility] Address [address] [place] [address]- Care Team Providers Care Sr. Strategic Sourcing Manager Name Role Phone Vladimir Keys MD Primary Care Physician Encounter [facility] Date(s): 11/14/22 - 12/14/22 [facility] [address] [place] [address] Allergies, Adverse Reactions, Alerts Substance Reaction Severity [...] tablet, 1 Refills, Maintenance, 07/23/22 16:50:00 EST, [facility] #[id number], 182.88, cm, 05/09/22 12:50:00 EDT, Height, 125.1, [...] 1 Refills, Maintenance, 10/21/22 10:07:00 EDT, Capsule, [facility] #11412, 177.8, cm, 10/21/22 7:55:00 EDT, Height, 106.6, [...] 11/08/22 15:18:00 EDT, Route to Pharmacy Electronically, [facility] #[id number], 177.8, cm, 10/21/22 11:06:00 EDT, Height, 106.6, [...] 07/23/22 16:50:00 EST, Route to Pharmacy Electronically, [facility] #[id number], 182.88, cm, 05/09/22 12:50:00 EDT, Height, 125.1, [...] EDT, Route to Pharmacy Electronically, [facility] #[id number], 180, cm, 12/13/21 12:56:00 EDT, Height, 136.6, [...] Safety Implantable Status Assigning Authority Unknown Unknown [id number] Unknown 12/26/26 Unknown Unknown Active Unknown Patient Care team information Care Team Personnel Name: Kaitlyn De La Paz RN Position: [facility] RN Member Role: Primary Care Nurse Name: Purnima Esposito RN Position: [facility] RN Member Role: Primary Care Nurse Name: Tran Ireland RN Position: [facility] RN Member Role: Primary Care Nurse Name: Rebeka Dunbar RN Position: [facility] RN Member Role: Primary Care Nurse Name: Mary Beth Argueta RN Position: [facility] SN RN Member Role: Primary Care Nurse Name: Rosalinda Espinoza RN Position: [facility] RN Member Role: Primary Care Nurse Name: Carla Reid RN Position: [facility] SN RN Member Role: Primary Care Nurse Name: Natalee Farrell RN Position: [facility] RN Member Role: Primary Care Nurse Name: Jasmeet Del Castillo RN Position: [facility] RN Member Role: Primary Care Nurse Name: Ruby Rojas RN Position: [facility] RN Member Role: Primary Care Nurse Name: Harleen Clark RN Position: [facility] AMB Nurse Member Role: Primary Care Nurse Name: Roger Romero RN Position: [facility] RN Member Role: Primary Care Nurse Name: Manasa Weinstein RN Position: [facility] RN Member Role: Primary Care Nurse Name: Tessa Hines RN Position: [facility] RN Member Role: Primary Care Nurse Name: Reina Romeo RN Position: [facility] RN Member Role: Primary Care Nurse Name: Mark Ruffin Position: [facility] RN Member Role: Primary Care Nurse Name: Albertina Acevedo RN Position: [facility] RN Member Role: Primary Care Nurse Name: Diana Patton RN Position: [facility] RN Member Role: Primary Care Nurse Name: Imelda Brand RN Position: [facility] RN Member Role: Primary Care Nurse Name: Joao Downs RN Position: [facility] RN Member Role: Primary Care Nurse Name: Mitzy Mora Position: [facility] RN Member Role: Primary Care Nurse Name: Ward Alcantar RN Position: [facility] RN Member Role: Primary Care Nurse Name: Karla Holder RN Position: [facility] RN Member Role: Primary Care Nurse Name: Eric Aceves III, RN Position: [facility] RN Member Role: Primary Care Nurse Name: Danay Galindo RN Position: [facility] RN Member Role: Primary Care Nurse Name: Ara De Santiago RN Position: [facility] Onco RN Member Role: Primary Care Nurse Name: Jacky Love Position: [facility] Associate Professional Member Role: Lifetime Consulting Provider Address: Address: [address] [place] [address]- [place] Name: Micki Quezada RN Position: S RN Member Role: Primary Care Nurse Name: Fatmata Alvarez RN Position: S RN Member Role: Primary Care Nurse Name: Ila Hamm RN Position: S RN Member Role: Primary Care Nurse Name: Owen Kuhn MD Position: [facility] Renal MD Member Role: Lifetime Consulting Physician Address: Address: [address] [place] [address] [address] [facility] [place] [address]- Name: Sharon Christopher RN Position: [facility] RN Member Role: Primary Care Nurse Name: Praveena Raymond RN Position: [facility] RN Member Role: Primary Care Nurse Name: Marcella Nichols RN Position: [facility] RN Member Role: Primary Care Nurse Name: Margaret Hurtado RN Position: [facility] SN RN Member Role: Primary Care Nurse Name: Noe Doyle MD Position: [facility] Renal MD Member Role: Lifetime Consulting Physician Address: Address: [address] [place] [address] [facility] [place] [address]- Name: Li Lu LPN Position: [facility] RN Member Role: Primary Care Nurse Name: Tete Rodríguez RN Position: [facility] RN Member Role: Primary Care Nurse Name: Hannah Mcintyre RN Position: [facility] RN Member Role: Primary Care Nurse Name: Tatiana Mueller RN Position: [facility] RN Member Role: Primary Care Nurse Name: Margarita Franco RN Position: [facility] RN Member Role: Primary Care Nurse Name: Nicole Pradhan RN Position: [facility] RN Member Role: Primary Care Nurse Name: Cherry Nguyen RN Position: [facility] RN Member Role: Primary Care Nurse Name: Vladimir Keys MD Position: [facility] Physician - Primary Care Member Role: PCP Address: Address: [address] [place] [address], [address] [place] [address]- [place] Name: Remedios Ramírez RN Position: [facility] RN Member Role: Primary Care Nurse Name: Ashlee Sanders RN Position: S RN Member Role: Primary Care Nurse Name: Theresa Geiger RN Position: [facility] RN Member Role: Primary Care Nurse Name: Talat Saldivar RN Position: [facility] RN Member Role: Primary Care Nurse Name: Den Wilde RN Position: [facility] SN RN Member Role: Primary Care Nurse Name: Rosalino Hernadez RN Position: [facility] RN Member Role: Primary Care Nurse Name: Noemí Ny RN, I Position: [facility] RN Member Role: Primary Care Nurse Name: Chloe Prado RN Position: [facility] RN Member Role: Primary Care Nurse Care Team Related Persons Name: DESMOND MCDUFFIE Address: home [address] [place] [address]
--- OUTSIDE RECORDS SUMMARY | 2024-01-20 06:15 | XMS_ITS | Continuity of Care Document ---
Author Organization [facility] Address [address] [place] [phone]- Care Team Providers Care Manager Line Name Role Phone Vladimir Keys MD Primary Care Physician [phone] [place] [facility] [place] - 04/04/22 [facility] [address] [place] [phone]- Attending Physician: Jason PARISH, Gail Akins Admitting [...] 12/13/21 13:59:00 EDT, Route to Pharmacy Electronically, [facility] #[id number], 180, cm, 12/13/21 12:56:00 EDT, Height, 136.6, [...] tablet, 1 Refills, Maintenance, 01/24/22 16:36:00 EDT, [facility] #[id number], 180, cm, 01/24/22 16:01:00 EDT, Height, 136.6, [...] 0 Refills, Maintenance, 12/13/21 14:03:00 EDT, Tablet, [facility] #[id number], 180, cm, 12/13/21 12:56:00 EDT, Height, 136.6, kg, 09/08/21 16:31:00 EST, Dry Weight Start Date: 12/13/21 Status: Ordered gabapentin 100 mg oral capsule 100 mg, 1, capsule, By Mouth, 2 times a day, # 60 capsule, Refills 2, Tot. Refills 2, Maintenance, 01/24/22 16:33:00 EDT, Route to Pharmacy Electronically, [facility] #[id number], 180, cm, 01/24/22 16:01:00 EDT, Height, 136.6, kg, 09/08/21 16:31:0... Start Date: 01/24/22 Status: Ordered glipiZIDE 2.5 mg oral tablet, extended release 1 tablet = 2.5 mg, By Mouth, Daily, # 90 tablet, 0 Refills, Maintenance, 12/13/21 14:03:00 EDT, ER Tablet, [facility] #[id number], Partial fill upon patient request if the [...] 11/27/21 12:04:00 EDT, Route to Pharmacy Electronically, [facility] #[id number], 180, cm, 09/22/21 20:27:00 EST, Height, 136.6, [...] 12/14/21 1:07:00 EDT, Route to Pharmacy Electronically, [facility] #[id number], 180, cm, 12/13/21 12:56:00 EDT, Height, 136.6, [...] mg on TTS Schedule [facility] 04[facility]16/2022, # 1 pack/packet, 0 [...] Team Personnel Name: Vladimir Keys MD Address: [address] [place] [address], [address] [place] [id number]
--- OUTSIDE RECORDS SUMMARY | 2024-01-20 06:15 | XMS_ITS | Continuity of Care Document ---
Author Organization [facility] Address [address] [place] [phone]- Care Team Providers Care Vamp Throater Name Role Phone Vladimir Keys MD Primary Care Physician [place] [facility] [place] 05/29/22 - 06/28/22 [facility] [address] [place] [id number] Attending Physician: Tanmay Lin Admitting Physician: [...] 12/13/21 13:59:00 EDT, Route to Pharmacy Electronically, [facility] #[id number], 180, cm, 12/13/21 12:56:00 EDT, Height, 136.6, kg, 09/08/21 16:31:00 EST, Dry... Start Date: 12/13/21 Status: Ordered B-12 1000 mcg oral tablet, extended release 1 tablet = 1,000 mcg, By Mouth, Daily, # 90 tablet, 1 Refills, Maintenance, 01/24/22 16:36:00 EDT, [facility] #[id number], 180, cm, 01/24/22 16:01:00 EDT, Height, 136.6, [...] 0 Refills, Maintenance, 12/13/21 14:03:00 EDT, Tablet, [id number], 180, cm, 12/13/21 12:56:00 EDT, Height, 136.6, kg, 09/08/21 16:31:00 EST, Dry Weight Start Date: 12/13/21 Status: Ordered gabapentin 100 mg oral capsule 100 mg, 1, capsule, By Mouth, 2 times a day, # 60 capsule, Refills 2, Tot. Refills 2, Maintenance, 01/24/22 16:33:00 EDT, Route to Pharmacy Electronically, [id number], 180, cm, 01/24/22 16:01:00 EDT, Height, 136.6, [...] 11/27/21 12:04:00 EDT, [id number], 180, cm, 09/22/21 20:27:00 EST, Height, 136.6, [...] 12/14/21 1:07:00 EDT, Route to Pharmacy Electronically, [facility] #[id number], 180, cm, 12/13/21 12:56:00 EDT, Height, 136.6, [...] Safety Implantable Status Assigning Authority Unknown Unknown [id number] Unknown 12/26/26 Unknown Unknown Active Unknown Patient Care team information Care Team Personnel Name: Kaitlyn De La Paz RN Position: [facility] RN Member Role: Primary Care Nurse Name: Purnima Esposito RN Position: [facility] RN Member Role: Primary Care Nurse Name: Tran Ireland RN Position: [facility] RN Member Role: Primary Care Nurse Name: Rebeka Dunbar RN Position: [facility] RN Member Role: Primary Care Nurse Name: Mary Beth Argueta RN Position: [facility] RN Member Role: Primary Care Nurse Name: Rosalinda Espinoza RN Position: [facility] RN Member Role: Primary Care Nurse Name: Natalee Farrell RN Position: [facility] RN Member Role: Primary Care Nurse Name: Liz Melara RN Position: [facility] RN Member Role: Primary Care Nurse Name: Vanesa Jo RN Position: [facility] RN Member Role: Primary Care Nurse Name: Jasmeet Del Castillo RN Position: [facility] RN Member Role: Primary Care Nurse Name: Ruby Rojas RN Position: [facility] RN Member Role: Primary Care Nurse Name: Harleen Clark RN Position: [facility] RN Member Role: Primary Care Nurse Name: Roger Romero RN Position: [facility] RN Member Role: Primary Care Nurse Name: Manasa Weinstein RN Position: [facility] RN Member Role: Primary Care Nurse Name: Reina Romeo RN Position: [facility] RN Member Role: Primary Care Nurse Name: Mark Ruffin Position: [facility] RN Member Role: Primary Care Nurse Name: Albertina Acevedo RN Position: [facility] RN Member Role: Primary Care Nurse Name: Diana Patton RN Position: [facility] RN Member Role: Primary Care Nurse Name: mIelda Brand RN Position: [facility] RN Member Role: Primary Care Nurse Name: oJao Downs RN Position: [facility] RN Member Role: Primary Care Nurse Name: Mitzy Mora Position: [facility] RN Member Role: Primary Care Nurse Name: Ward Alcantar RN Position: [facility] RN Member Role: Primary Care Nurse Name: Karla Holder RN Position: [facility] RN Member Role: Primary Care Nurse Name: Eric Aceves III, RN Position: [facility] RN Member Role: Primary Care Nurse Name: Danay Galindo RN Position: [facility] RN Member Role: Primary Care Nurse Name: Ara De Santiago RN Position: [facility] Onco RN Member Role: Primary Care Nurse Name: Li De Santiago RN Position: [facility] RN Member Role: Primary Care Nurse Name: Jacky Love Position: [facility] Associate Professional Member Role: Lifetime Consulting Provider Address: Address: [address] [place] [address] Name: Micki Quezaad RN Position: [facility] RN Member Role: Primary Care Nurse Name: Fatmata Alvarez RN Position: [facility] RN Member Role: Primary Care Nurse Name: Ila Hamm RN Position: [facility] RN Member Role: Primary Care Nurse Name: Rocio Bird RN Position: [facility] RN Member Role: Primary Care Nurse Name: Owen Kuhn MD Position: [facility] Renal MD Member Role: Lifetime Consulting Physician Address: Address: [address] [place] [address] [address] [facility] [address] Name: Sharon Christopher RN Position: [facility] RN Member Role: Primary Care Nurse Name: Praveena Raymond RN Position: [facility] RN Member Role: Primary Care Nurse Name: Carla Pickett RN Position: S RN Member Role: Primary Care Nurse Name: Marcella Nichols RN Position: [facility] RN Member Role: Primary Care Nurse Name: Margaret Hurtado RN Position: S RN Member Role: Primary Care Nurse Name: Everett Marcelo RN Position: [facility] RN Member Role: Primary Care Nurse Name: Noe Doyle MD Position: [facility] Renal MD Member Role: Lifetime Consulting Physician Address: Address: [address] [place] [address] [facility] [place] [address]- Name: Li Lu LPN Position: [facility] RN Member Role: Primary Care Nurse Name: Odalis Herrera Position: [facility] RN Member Role: Primary Care Nurse Name: Tete Rodríguez RN Position: [facility] RN Member Role: Primary Care Nurse Name: Hannah Mcintyre RN Position: [facility] RN Member Role: Primary Care Nurse Name: Margarita Franco RN Position: [facility] RN Member Role: Primary Care Nurse Name: Cherry Nguyen RN Position: [facility] RN Member Role: Primary Care Nurse Name: Theresa Robison RN Position: [facility] RN Member Role: Primary Care Nurse Name: Vladimir Kyes MD Position: [facility] Primary Care Physician Member Role: PCP Address: Address: [address] [place] [address], [address] [place] [address]- Name: Remedios Ramírez RN Position: [facility] RN Member Role: Primary Care Nurse Name: Ashlee Sanders RN Position: [facility] RN Member Role: Primary Care Nurse Name: Theresa Geiger RN Position: [facility] RN Member Role: Primary Care Nurse Name: Danay Banegas RN Position: [facility] RN Member Role: Primary Care Nurse Name: Talat Saldivar RN Position: [facility] RN Member Role: Primary Care Nurse Name: Den Wilde RN Position: [facility] RN Member Role: Primary Care Nurse Name: Rosalino Hernadez RN Position: [facility] RN Member Role: Primary Care Nurse Name: Chloe Prado Position: S RN Member Role: Primary Care Nurse Care Team Related Persons Name: DESMOND MCDUFFIE Address: home [address] [place] [address]
--- OUTSIDE RECORDS SUMMARY | 2024-01-20 06:15 | XMS_ITS | Continuity of Care Document ---
Author Organization [facility] Address [address] [place] [address]- Care Team Providers Care Patient Registration Supervisor Name Role Phone Vladimir Keys MD Primary Care Physician [place] [facility] [place]23 [facility] [address] [place] [id number] Attending Physician: [...] tablet, 1 Refills, Maintenance, 07/23/22 16:50:00 EST, [facility] #[id number], 182.88, cm, 05/09/22 12:50:00 EDT, Height, 125.1, [...] 1 Refills, Maintenance, 10/21/22 10:07:00 EDT, Capsule, [facility] #[id number], 177.8, cm, 10/21/22 7:55:00 EDT, Height, 106.6, [...] 12/20/22 11:55:00 EDT, Route to Pharmacy Electronically, [facility] #[id number], 177.8, cm, 10/21/22 11:06:00 EDT, Height, 106.6, [...] 07/23/22 16:50:00 EST, [id number], 182.88, cm, 05/09/22 12:50:00 EDT, Height, 125.1, [...] EDT, Route to Pharmacy Electronically, [facility] #[id number], 177.8, cm, 10/21/22 11:06:00 EDT, Height, 106.6, kg, 10/18/22 3:46:00 EDT, Dry Weight Start Date: 12/19/22 Status: Ordered warfarin 5 mg oral tablet See Instructions, TAKE 1.5 TABLETS(7.5MG) BY MOUTH EVERY DAY ALTERNATE WITH 2 TABLETS(10MG) EVERY OTHER DAY, # 150 tablet, 0 Refills, Maintenance, 12/20/22 11:55:00 EDT, [facility] #[id number], 177.8, cm, 10/21/22 11:06:00 EDT, Height, 106.6, [...] Safety Implantable Status Assigning Authority Unknown Unknown [id number] Unknown 12/26/26 Unknown Unknown Active Unknown Patient Care team information Care Team Personnel Name: Kaitlyn De La Paz RN Position: [facility] RN Member Role: Primary Care Nurse Name: Purnima Esposito RN Position: [facility] RN Member Role: Primary Care Nurse Name: Tran Ireland RN Position: [facility] RN Member Role: Primary Care Nurse Name: Rebeka Dunbar RN Position: [facility] RN Member Role: Primary Care Nurse Name: Mary Beth Argueta RN Position: [facility] SN RN Member Role: Primary Care Nurse Name: Rosalinda Espinoza RN Position: [facility] RN Member Role: Primary Care Nurse Name: Caral Reid RN Position: [facility] SN RN Member Role: Primary Care Nurse Name: Natalee Farrell RN Position: [facility] RN Member Role: Primary Care Nurse Name: Jasmeet Del Castillo RN Position: [facility] RN Member Role: Primary Care Nurse Name: Harleen Clark RN Position: [facility] AMB Nurse Member Role: Primary Care Nurse Name: Roger Romero RN Position: [facility] RN Member Role: Primary Care Nurse Name: Manasa Weinstein RN Position: [facility] RN Member Role: Primary Care Nurse Name: Tessa Hines RN Position: [facility] RN Member Role: Primary Care Nurse Name: Reina Romeo RN Position: [facility] RN Member Role: Primary Care Nurse Name: Mark Ruffin Position: [facility] RN Member Role: Primary Care Nurse Name: Diana Patton RN Position: [facility] RN Member Role: Primary Care Nurse Name: Imelda Brand RN Position: [facility] RN Member Role: Primary Care Nurse Name: Joao Downs RN Position: [facility] RN Member Role: Primary Care Nurse Name: Mitzy Mora Position: [facility] RN Member Role: Primary Care Nurse Name: Ward Alcantar RN Position: [facility] RN Member Role: Primary Care Nurse Name: Karla Holder RN Position: [facility] RN Member Role: Primary Care Nurse Name: Eric Aceves III, RN Position: [facility] RN Member Role: Primary Care Nurse Name: Danay Galindo RN Position: [facility] RN Member Role: Primary Care Nurse Name: Ara De Santiago RN Position: [facility] Onco RN Member Role: Primary Care Nurse Name: Jacky Love Position: [facility] Associate Professional Member Role: Lifetime Consulting Provider Address: Address: [address] [place] [address]- Name: iMcki Quezada RN Position: [facility] RN Member Role: Primary Care Nurse Name: Fatmata Alvarez RN Position: [facility] RN Member Role: Primary Care Nurse Name: Ila Hamm RN Position: [facility] RN Member Role: Primary Care Nurse Name: Owen Kuhn MD Position: [facility] Renal MD Member Role: Lifetime Consulting Physician Address: Address: [address] [place] [address] [address] [facility] [place] [place] [address]- Name: Sharon Christopher RN Position: [facility] RN Member Role: Primary Care Nurse Name: Praveena Raymond RN Position: [facility] RN Member Role: Primary Care Nurse Name: Marcella Nichols RN Position: [facility] RN Member Role: Primary Care Nurse Name: Margaret Hurtado RN Position: [facility] SN RN Member Role: Primary Care Nurse Name: Noe Doyle MD Position: [facility] Renal MD Member Role: Lifetime Consulting Physician Address: Address: [address] [place] [address] [facility] [place] [address]- Name: Li Lu LPN Position: [facility] RN Member Role: Primary Care Nurse Name: Tete Rodríguez RN Position: [facility] RN Member Role: Primary Care Nurse Name: Hannah Mcintyre RN Position: [facility] RN Member Role: Primary Care Nurse Name: Tatiana Mueller RN Position: [facility] RN Member Role: Primary Care Nurse Name: Margarita Franco RN Position: [facility] RN Member Role: Primary Care Nurse Name: Nicole Pradhan RN Position: [facility] RN Member Role: Primary Care Nurse Name: Cherry Nguyen RN Position: [facility] RN Member Role: Primary Care Nurse Name: Vladimir Keys MD Position: [facility] Physician - Primary Care Member Role: PCP Address: Address: [address] [place] [address], [address] [place] [address]- [place] Name: Remedios Ramírez RN Position: [facility] RN Member Role: Primary Care Nurse Name: Ashlee Sanders RN Position: [facility] RN Member Role: Primary Care Nurse Name: Theresa Geiger RN Position: [facility] RN Member Role: Primary Care Nurse Name: Talat Saldivar RN Position: [facility] RN Member Role: Primary Care Nurse Name: Den Wilde RN Position: [facility] SN RN Member Role: Primary Care Nurse Name: Rosalino Hernadez RN Position: [facility] RN Member Role: Primary Care Nurse Name: Noemí Ny RN, I Position: [facility] RN Member Role: Primary Care Nurse Name: Chloe Prado RN Position: [facility] RN Member Role: Primary Care Nurse Care Team Related Persons Name: DESMOND MCDUFFIE Address: home [address] [place] [id number]
--- OUTSIDE RECORDS SUMMARY | 2024-01-20 06:15 | XMS_ITS | Continuity of Care Document ---
Author Organization [facility] ter Address [address] [place] [id number] Care Team Providers Care Plant Engineering Supervisor Name Role Phone Vladimir Keys MD Primary Care Physician Encounter [facility] Date(s): 08/14/21 - 09/06/[address] [address] Discharge Disposition: A-Transfer SNF Attending Physician: Jostin Garcia MD Admitting Physician: Austin Guan MD Referring Physician: Austin Guan MD Allergies, Adverse Reactions, Alerts No Known [...] opioid drug. Start Date: 09/06/21 Status: Ordered gabapentin 100 mg oral capsule 200 mg, 2, capsule, By Mouth, 3 times a day, Refills 0, Maintenance, 09/06/21 8:19:00 EST, Partial fill upon patient request if the prescription is for a schedule II opioid drug. Start Date: 09/06/21 Status: Ordered gabapentin 100 mg oral capsule 200 mg, Capsule, By Mouth, 09/06/21 9:00:00 EST Start Date: 09/06/21 Stop Date: 09/06/21 Status: Completed insulin lispro 100 units/mL injectable [...] oral tablet 75 mg, Tablet, By Mouth, Hold for: HR<60, SBP<100, 09/06/21 9:00:00 EST Start Date: 09/06/21 Stop Date: 09/06/21 Status: Completed Milk of Magnesia Liquid 30 [...] tablet, Refills 1, Route to Pharmacy Electronically, [facility] #[id number], 174, cm, 01/19/21 13:26:00 EDT, Height, 127.5, [...] IIopioid drug. Start Date: 09/06/21 Status: Ordered Tylenol 325 mg oral tablet 975 mg, 3, tablet, By Mouth, Every 8 hours, Refills 0, Maintenance, 09/06/21 8:19:00 EST, Partial fill upon patient request if the prescription is for a schedule II opioid drug. Start Date: 09/06/21 Status: Ordered warfarin 5 mg oral tablet 2 tablet, By Mouth, Daily, 7.5mg 4 days a week and 3 days on 10mg daily, # 60 tablet, 0 Refills, [facility] #[id number], 174, cm, 03/26/21 14:17:00 EDT, Height, 127.5, [...] Results Orders for Microbiology Reports Name Date Anaerobic Culture 08/20/21 Sterile Body Fluid Culture W/ Gram Smear 08/20/21 Blood Culture 08/19/21 Blood Culture #2 08/19/21 Blood Culture 08/16/21 Blood Culture #2 08/16/21 AFB Culture w/ AFB Smear, Nonrespiratory (ACID FAST CULT,NON-RESP) 08/14/21 Anaerobic Culture (ANAEROBIC CULTURE) 08/14/21 Wound Deep Culture w/ Gram Smear (DEEP W OUND CULTURE) 08/14/21 Blood Culture #2 08/14/21 Microbiology Reports TEST:Anaerobic Culture STATUS:Modified/Amended/Corrected BODY SITE: SOURCE:JOINT COLLECTED DATE/TIME:08/20/21 4:05 PM Anaerobic Culture SPECIMEN DESCRIPTION : JOINT FLUID KNEE RT SPECIAL REQUESTS : NONE CULTURE : NO ANAEROBES ISOLATED AFTER 14 DAYS REPORT STATUS : FINAL 09/03/2021 TEST:Sterile Fluid Culture STATUS:Auth (Verified) BODY SITE: SOURCE:JOINT COLLECTED DATE/TIME:08/20/21 4:05 PM Sterile Fluid Culture SPECIMEN DESCRIPTION : JOINT FLUID SPECIAL REQUESTS : NONE GRAM STAIN : 1+ WHITE BLOOD CELLS 1+ TISSUE CELLS NO ORGANISMS SEEN CULTURE : NO GROWTH 2 DAYS REPORT STATUS : FINAL 08/23/2021 TEST:Blood Culture, Second Order STATUS:Auth (Verified) BODY SITE: SOURCE:Blood COLLECTED DATE/TIME:08/19/21 8:50 AM Blood Culture, Second Order SPECIMEN DESCRIPTION : BLOOD L ARM SPECIAL REQUESTS : NONE CULTURE : NO GROWTH 5 DAYS. REPORT STATUS : FINAL 08/24/2021 TEST:Blood Culture STATUS:Auth (Verified) BODY SITE: SOURCE:Blood COLLECTED DATE/TIME:08/19/21 7:36 AM Blood Culture SPECIMEN DESCRIPTION : BLOOD LARM SPECIAL REQUESTS : NONE CULTURE : NO GROWTH 5 DAYS. REPORT STATUS : FINAL 08/24/2021 TEST:Blood Culture STATUS:Auth (Verified) BODY SITE: SOURCE:Blood COLLECTED DATE/TIME:08/16/21 4:32 AM Blood Culture SPECIMEN DESCRIPTION : BLOOD NOSITE SPECIAL REQUESTS : NONE CULTURE : NO GROWTH 5 DAYS. REPORT STATUS : FINAL 08/21/2021 TEST:Blood Culture, Second Order STATUS:Auth (Verified) BODY SITE: SOURCE:Blood COLLECTED DATE/TIME:08/16/21 3:36 AM Blood Culture, Second Order SPECIMEN DESCRIPTION : BLOOD LARM SPECIAL REQUESTS : NONE CULTURE : NO GROWTH 5 DAYS. REPORT STATUS : FINAL 08/21/2021 TEST:Anaerobic Culture STATUS:Auth (Verified) BODY SITE: SOURCE:TISSUE1 COLLECTED DATE/TIME:08/14/21 12:39 PM Anaerobic Culture SPECIMEN DESCRIPTION : TISSUE R MEDIAL INFECTION SPECIAL REQUESTS : NONE CULTURE : NO ANAEROBES ISOLATED REPORT STATUS : FINAL 08/16/2021 TEST:AFB Culture w/AFB Smear, Non-Respiratory STATUS:Unauthenticated BODY SITE: SOURCE:TISSUE1 COLLECTED DATE/TIME:08/14/21 12:39 PM AFB Culture w/AFB Smear, Non-Respiratory SPECIMEN DESCRIPTION : TISSUE R MEDIAL INFECTION SPECIAL REQUESTS : NONE DIRECT EXAM : NO ACID FAST BACILLI SEEN ON DIRECT SMEAR, TEST PERFORMED AT [facility] No acid fast bacilli seen on concentrated smear. Per [facility] protocol, this specimen was concentrated prior to smear preparation. Testing performed by [facility], [address] [place] [id number]. CULTURE : SPECIMEN SENT TO [facility], [place], [place] REPORT STATUS : PRELIMINARY REPORT TEST:Deep Wound Culture STATUS:Auth (Verified) BODY SITE: SOURCE:FLUID COLLECTED DATE/TIME:08/14/21 12:39 PM Deep Wound Culture SPECIMEN DESCRIPTION : FLUID R MEDIAL FOOT INFECTION SPECIAL REQUESTS : NONE GRAM STAIN : 2+ POLYMORPHONUCLEAR LEUKOCYTES 2+ GRAM POSITIVE COCCI CULTURE : 3+ STAPHYLOCOCCUS AUREUS. REPORT STATUS : FINAL 08/16/2021 ORGANISM 3+ STAPHYLOCOCCUS AUREUS. METHOD MIN. INHIB. CONC. (MCG/ML) CIPROFLOXACIN SUSCEPTIBLE CLINDAMYCIN RESISTANT ERYTHROMYCIN RESISTANT LEVOFLOXACIN SUSCEPTIBLE OXACILLIN SUSCEPTIBLE PENICILLIN SUSCEPTIBLE RIFAMPIN SUSCEPTIBLE RIFAMPIN RIFAMPIN SHOULD NOT BE USED ALONE FOR ANTIMICROBIAL RIFAMPIN THERAPY. TETRACYCLINE RESISTANT TRIMETH/SULFAMETHOX SUSCEPTIBLE VANCOMYCIN SUSCEPTIBLE TEST:Blood Culture, Second Order STATUS:Modified/Amended/Corrected BODY SITE: SOURCE:Blood COLLECTED DATE/TIME:08/14/21 8:18 AM Blood Culture, Second Order SPECIMEN DESCRIPTION : BLOOD SPECIAL REQUESTS : CRITICAL VALUE CALLED AND VERIFIED BY READBACK FOR: GRAM POSITIVE COCCI CALLED TO [facility] GEOVANNI [id number] BY [place] [id number] 08/15/21 @0144 CULTURE : STAPHYLOCOCCUS AUREUS. S. aureus was identified by multi-plex PCR. MecA NOT detected. The absence of the mecA gene is associated with susceptibility to methicillin (MSSA). REPORT STATUS : FINAL 08/17/2021 ORGANISM STAPHYLOCOCCUS AUREUS. METHOD MIN. INHIB. CONC. (MCG/ML) CIPROFLOXACIN SUSCEPTIBLE CLINDAMYCIN RESISTANT ERYTHROMYCIN RESISTANT GENTAMICIN SUSCEPTIBLE LEVOFLOXACIN SUSCEPTIBLE OXACILLIN SUSCEPTIBLE PENICILLIN SUSCEPTIBLE RIFAMPIN SUSCEPTIBLE RIFAMPIN RIFAMPIN SHOULD NOT BE USED ALONE FOR ANTIMICROBIAL RIFAMPIN THERAPY. TETRACYCLINE RESISTANT TRIMETH/SULFAMETHOX SUSCEPTIBLE VANCOMYCIN SUSCEPTIBLE Radiology Reports * Exam Date Time Procedure Performing Provider Status 09/06/21 10:48 AM Chest Portable Wesley Bird; Auth (Ve rified) Notes: (Chest Portable) Reason For Exam: Picc line placement.;Line Placement RESULT: Chest Portable Chest Portable Reason: Line Placement; Picc line placement.; Clinical Question(s): Line Placement; Special Instructions: Picc line was over the wire. please confirm placement for new lilne COMPARISON: Multiple priors, most recent 09/05/2021. FINDINGS: LINES AND TUBES: Interval exchange of a right-sided PICC with the distal catheter tip projecting over the mid superior vena cava. LUNGS AND PLEURA: Redemonstration of hazy basilar airspace opacification and blunting of the hemidiaphragms and costophrenic angles consistent with bilateral pleural effusions and associated atelectasis. The upper lungs remain relatively clear. No pneumothorax. HEART, [address] AND AVE: Unchanged. BONES AND SOFT TISSUES: No acute abnormality. IMPRESSION: Interval exchange of a right-sided PICC. No evidence of complication. Otherwise, no significant interval change. WSN: [id number] Ordering Physician: Jostin Garcia Dictated By: Jef Tolbert MD Dictated Date/Time: 09/06/21 11:13 a Reviewed By: Jef Tolbert MD Signed By: Jef Tolbert MD Signed Date/Time: 09/06/21 11:13 am Transcribed By: MARIYA Transcribed Date/Time: 09/06/21 11:11 am * Exam Date Time Procedure Performing Provider Status 09/05/21 3:23 PM Chest Portable Juana Rinaldi; Sara (V erified) Notes: (Chest Portable) Reason For Exam: Picc line placement;Line Placement RESULT: Chest Portable Chest Portable Reason: Confirmation of PICC line placement. COMPARISON: CT angiogram chest without/pelvis 11/30/2020. Chest radiograph 03/22/2019 and 08/30/2021. FINDINGS: LINES AND TUBES: Intervally placed right-sided PICC line has tip projecting over the distal SVC. LUNGS AND PLEURA: Worsening lung volumes and increasing hazy opacification in the bilateral lungs with some sparing of the bilateral upper lungs. No pneumothorax. HEART, MEDIA[address] AND AVE: Interval rightward midline shift of the cardiomediastinal structures with increasing opacification of the right lung suggestive of partial lung collapse. BONES AND SOFT TISSUES: No acute abnormality. IMPRESSION: An intervally placed right-sided PICC line appears well placed. Worsening low lung volumes with increasing confluent hazy opacification throughout the bilateral lungs. Findings are suggestive of pulmonary edema, multifocal pneumonia, and/or atelectasis. Interval rightward midline shift of the cardiomediastinal structures is suggestive of partial collapse of the right lung, likely the right lower lung. Moderate bilateral pleural effusions. I have personally reviewed the images and I agree with this report. WSN: [id number] Ordering Physician: Jostin Garcia Dictated By: Cheyenne Freeman DO Dictated Date/Time: 09/05/21 3:37 pm Reviewed By: Jeffrey Reyes MD, V Signed By: Jeffrey Reyes MD, V Signed Date/Time: 09/05/21 3:42 pm Transcribed By: MARIYA Transcribed Date/Time: 09/05/21 3:35 pm * Exam Date Time Procedure Performing Provider Status 08/30/21 8:34 AM Chest Portable Jeanne Chaparro; Sara (Verified) Notes: (Chest Portable) Reason For Exam: Shortness of Breath RESULT: Chest Portable Chest Portable Reason: Shortness of Breath; Clinical Question(s): Pneumonia COMPARISON: 08/14/2021, 11/30/2020, 03/22/2018 FINDINGS: LINES AND TUBES: None.1 LUNGS AND PLEURA: New right mid to lower lung and left lower lung haziness/opacities; apparent bilateral costophrenicangle blunting, right greater than left. No pneumothorax. HEART, MED[address] AND AVE: Heart is normal in size. Normal upper mediastinal and hilar contour. BONES AND SOFT TISSUES: No acute abnormality. IMPRESSION: New moderate right and small left pleural effusions; adjacent airspace opacities may be part of layering pleural effusions, or may represent airspace disease such as compressive atelectasis or aspiration pneumonia/pneumonitis. I have personally reviewed the images and I agree with this report. WSN: [id number] Ordering Physician: Jostin Garcia Dictated By: Emile Sidhu DO Dictated Date/Time: 08/30/21 10:32 a Reviewed By: Jef Tolbert MD Signed By: Jef Tolbert MD Signed Date/Time: 08/30/21 10:37 am Transcribed By: MARIYA Transcribed Date/Time: 08/30/21 10:31 am * Exam Date Time Procedure Performing Provider Status 08/20/21 5:11 PM Knee 3 Views Right Leanna Cabral; Auth (V erified) Notes: (Knee 3 Views Right) Reason For Exam: Trauma RESULT: Knee 3 Views Right Knee 3 Views Right Reason: Trauma; Clinical Question(s): Loosening Prosthesis COMPARISON: 08/14/2021 FINDINGS: No evidence of loosening or periprosthetic fracture status post right total knee arthroplasty. Chronic mineralization adjacent to the medial femoral condyle. No suprapatellar joint effusion. Arterial vascular calcifications. IMPRESSION: No evidence of loosening or periprosthetic fracture. WSN: [id number] Ordering Physician: Law Cummings Dictated By: Roddy Gross MD Dictated Date/Time: 08/20/21 5:15 pm Reviewed By: Roddy Gross MD Signed By: Roddy Gross MD Signed Date/Time: 08/20/21 5:15 pm Transcribed By: MARIYA Transcribed Date/Time: 08/20/21 5:14 pm * Exam Date Time Procedure Performing Provider Status 08/15/21 10:06 AM Foot Min 3 Views Right Jeannette Oro ; Sara (Verified) Notes: (Foot Min 3 Views Right) Reason For Exam: infection concern for subcutanious gas;Other: RESULT: Foot Min 3 Views Right Right foot 3 views dated August 15, 2021. Comparison films are from August 14, 2021. HISTORY: Infection. Question subcutaneous gas. FINDINGS: This examination shows no evidence of fracture or dislocation. Fairly significant arthritic changes are present in the first metatarsophalangeal joint with loss of joint space, subchondral cyst formation and osteophyte formation. Milder arthritic changes are present in the interphalangealjoints of the 5 toes. A plantar calcaneal bone spur is noted. Soft tissue swelling is present throughout the foot. Arterial calcifications are present. No radiopaque foreign body or soft tissue gas is noted. IMPRESSION: No evidence of acute osseous abnormality and no significant interval change. No evidence of subcutaneous gas. Examination 355[address]. Thank you for allowing me to participate in the care of this patient. WSN: [id number] Ordering Physician: Cesar Toro Dictated By: James Burnette MD Dictated Date/Time: 08/15/21 11:08 a Reviewed By: James Burnette MD Signed By: James Burnette MD Signed Date/Time: 08/15/21 11:08 am Transcribed By: MARIYA Transcribed Date/Time: 08/15/21 11:07 am Vital Signs Most recent to oldest [Reference Range]: 1 2 3 Height 180 cm (09/06/21 3:48 AM) 180 cm (09/05/21 11:43 PM) 180 cm (09/05/21 8:08 PM) Weight 155 kg (08/23/21 8:33 AM) 155 kg (08/21/21 10:13 PM) 154.2 kg (08/17/21 8:49 AM) Oxygen Saturation [94-100 %] 97 % (09/06/21 8:00 AM) 95 % (09/06/21 3:48 AM) 95 % (09/05/21 11:43 PM) Pulse Rate [55-90 bpm] 88 bpm (09/06/21 8:45 AM) 88 bpm (09/06/21 8:00 AM) 89 bpm (09/06/21 3:48 AM) Body Mass Index [18.5-24.99] 47.84 *>HHI* (08/23/21 8:33 AM) 42.84 *>HHI* (08/14/21 11:17 AM) 42.84 *>HHI* (08/14/21 6:55 AM) Blood Pressure [90-138/55-84 mm Hg] 113/54mm Hg (09/06/21 8:45 AM) 113/54mm Hg (09/06/21 8:00 AM) 127/65mm Hg (09/06/21 3:48 AM) Respiratory Rate [16-30 br/min] 18 br/min (09/06/21 8:45 AM) 18 br/min (09/06/21 8:00 AM) 19 br/min (09/06/21 3:48 AM) Temperature [96.8-100.4 DegF] 97.6 DegF (09/06/21 8:00 AM) 97.7 DegF (09/06/21 3:48 AM) 97.6 DegF (09/05/21 11:43 PM) Liters per Minute 1 L/min (09/06/21 8:00 AM) 1 L/min (09/06/21 3:48 AM) 1 L/min (09/05/21 11:43 PM) Mode of Delivery (Oxygen) Nasal cannula (09/06/21 8:00 AM) Nasal cannula (09/06/21 3:48 AM) Room air (09/05/21 11:43 PM) Blood pressure sites Arm, left (09/06/21 8:00 AM) Arm, left (09/06/21 3:48 AM) Arm, left (09/05/21 11:43 PM) Temperature Route Oral (09/06/21 8:00 AM) Oral (09/06/21 3:48 AM) Oral (09/05/21 11:43 PM) Dry Weight 136.5 kg (08/14/21 6:55 AM) Weight Obtained Via Bed scale (08/21/21 10:13 PM) Bed scale (08/16/21 9:52 PM) Bed scale (08/15/21 8:00 AM) Dry Weight Obtained Via Patient/family s tated (08/14/21 6:55 AM) Social History Social History Type Response Smoking Status Cigars or pipes but not daily within last 30 days; Type: Cigars; Other: occasionally, couple times a week.; entered on: 11/30/20 Sex
--- NOTE | 2024-01-20 07:24 | ECG_ITS ---
Test Reason : PRE OP Blood Pressure : / mmHG Vent. Rate : 059 BPM Atrial Rate : 000 BPM P-R Int : 000 ms QRS Dur : 170 ms QT Int : 490 ms P-R-T Axes : 000 -13 140 degrees QTc Int : 485 ms Atrial fibrillation with slow ventricular response with premature ventricular or aberrantly conducted complexes Left bundle branch block Abnormal ECG No previous ECGs available Referred By: Ila Fraire Electronically Signed By:Ruddy Jennings
[2024-01-20 07:49] LABS: Glucose, Whole Blood 70 mg/dL (60-115)
[2024-01-20 07:54] LABS: INTERNATIONAL NORM RATIO 1.5 (0.9-1.1); Prothrombin Time 17.7 SEC (11.1-13.3)
[2024-01-20] MEDS: Lactated Ringers 1,000 ML 50 ML IVCONT (07:56)
--- NOTE | 2024-01-20 08:17 | MHC.SHP ---
Pre-Procedural Eval Section A - 24 Hr Update-Section A only Date of Service: 01/20/24 The patient is an INPATIENT: No The patient has been examined within 24 hours of the surgical procedure. The History & Physical has been completed within 30 days and I have reviewed it.: Yes Section B - Complete if H&P > 30 days Chief Complaint: Phimosis Allergies: Allergies Allergy/AdvReac Type Severity Reaction Status Date / Time ceftriaxone Allergy Unknown Verified 01/16/24 10:27 Plan Diagnosis/Plan: Unchanged I have reviewed the history and physical and performed a pertinent physical examination on my patient. No changes have occurred unless specified. Circumcision. discussed risks to include but not limited to infection, bleeding. Time Spent With Patient Time: Total time managing care of this patient today ____ minutes.
--- NOTE | 2024-01-20 10:25 | W.PM.OPN ---
Operative Note Operative Note Date of Service: 01/20/24 Narrative: PreOperative Diagnosis:? ? Phimosis Post Operative Diagnosis:?Phimosis Procedure:?Circumcision Surgeon:?Dr Antwan Saha Anesthesia:? General Procedure: After informed consent was verified the patient was brought to the operating room and placed in a supine position.? Anesthesia was performed per protocol. The patient was prepped and draped in the usual sterile fashion. Safety pause time-out was performed. Antibiotics confirmed. Penile block was performed. Dorsal slit was performed, an incision to allow the foreskin to be retracted. With the foreskin over the glans a circumferential incision is made at the level of the mora. The fore skin was then retracted and a circumferential incision was made 0.5 cm below the mora. The foreskin was removed with cautery. The skin is closed in T- style, with skin closed in the midline on the dorsal surface. 4-0 chromic,with interrupted fashion, bacitracin ointment was used over the incision and incision covered with cling. The patient tolerated the procedure well and was transferred to the recovery area upon completion. Complications: None
== END 2024-01-20 14:08 | disposition home or self-care (01) ==
PROVIDERS: Nurse Practitioner; PCP Internal Medicine Medical Oncology; Visit Provider Urology
PROC: (CPT 54161; principal; 2024-01-20 08:30)
DX: N47.1 Phimosis (principal); R97.20 Elevated prostate specific antigen [PSA]; N41.9 Inflammatory disease of prostate, unspecified; R35.0 Frequency of micturition; I13.0 Hypertensive heart and chronic kidney disease with heart failure and stage 1 through stage 4 chronic kidney disease, or unspecified chronic kidney disease; I50.42 Chronic combined systolic (congestive) and diastolic (congestive) heart failure; N18.30 Chronic kidney disease, stage 3 unspecified; E11.22 Type 2 diabetes mellitus with diabetic chronic kidney disease; G62.9 Polyneuropathy, unspecified; E78.5 Hyperlipidemia, unspecified; D64.9 Anemia, unspecified; E66.9 Obesity, unspecified; I38 Endocarditis, valve unspecified; I48.91 Unspecified atrial fibrillation; Z95.2 Presence of prosthetic heart valve; Z79.01 Long term (current) use of anticoagulants; Z79.899 Other long term (current) drug therapy; Z87.891 Personal history of nicotine dependence; Z88.8 Allergy status to other drugs, medicaments and biological substances
CPT/HCPCS: 54161; 36415; 82947; 85610; 88304; 93005; J0131; J1100; J1956; J2405; J2704; J2795; J3010

== ENCOUNTER → 2024-01-20 06:11 | Outpatient (BNV) | payer MEDICARE, SELFPAY | PROVIDERS: PCP Internal Medicine Medical Oncology; Visit Provider Urology | DX: N47.1 Phimosis (principal) | CPT/HCPCS: 54161 ==

== ENCOUNTER → 2024-01-20 07:24 | Outpatient (BNV) | payer MEDICARE, SELFPAY | PROVIDERS: PCP Internal Medicine Medical Oncology; Visit Provider Internal Medicine Cardiovascular Disease | DX: R94.31 Abnormal electrocardiogram [ECG] [EKG] (principal) | CPT/HCPCS: 93010 ==

== ENCOUNTER 2024-01-22 05:37 | Outpatient (REF) | payer MEDICARE, SELFPAY ==
[2024-01-22 06:32] LABS: MANUAL DIFF FLAG NO
[2024-01-22 07:04] LABS: Basophils Percent Auto 0.4 % (0-2); Eosinophils Absolute Auto 0.1 X10*3/uL (0.0-0.4); Eosinophils Percent Auto 1.4 % (0-4); Hematocrit 27.9 % (42.0-52.0); Hemoglobin 8.8 g/dl (14.0-18.0); Imm Gran Abs Auto 0.02 X10*3/uL (0.00-0.03); Imm Gran Pct Auto 0.4 % (0.0-0.4); Lymphocytes Percent Auto 19.1 % (20-40); Mean Corpuscular HGB Conc 31.5 g/dl (31.0-36.0); Mean Corpuscular Hemoglobin 30.8 pg (27.0-33.0); Mean Corpuscular Volume 97.6 fL (80.0-98.0); Mean Platelet Volume 10.7 fL (9.4-12.4); Monocytes Absolute Auto 0.6 X10*3/uL (0.1-1.2); Monocytes Percent Auto 12.4 % (2-11); Neutrophils Absolute Auto 3.4 x10*3/uL (2.0-8.3); Neutrophils Percent Auto 66.3 % (45-73); Platelet Count 164 X10*3/uL (160-400); Red Blood Count 2.86 X10*6/uL (4.60-5.80); Red Cell Distribution Width 14.1 % (11.0-16.0); White Blood Count 5.2 X10*3/uL (4.8-10.8)
[2024-01-22 07:24] LABS: INTERNATIONAL NORM RATIO 1.3 (0.9-1.1); Prothrombin Time 15.2 SEC (11.1-13.3)
== END 2024-01-22 05:38 | disposition home or self-care (01) ==
LOC: HO.HSH2E 05:37
PROVIDERS: Visit Provider Nurse Practitioner
DX: Z79.01 Long term (current) use of anticoagulants (principal)
CPT/HCPCS: 36415; 85025; 85610

== ENCOUNTER 2024-01-26 06:57 | Outpatient (REF) | payer MEDICARE, SELFPAY ==
[2024-01-26 07:02] LABS: MANUAL DIFF FLAG NO
[2024-01-26 07:30] LABS: Basophils Percent Auto 0.8 % (0-2); Eosinophils Absolute Auto 0.2 X10*3/uL (0.0-0.4); Eosinophils Percent Auto 3.5 % (0-4); Hematocrit 29.3 % (42.0-52.0); Hemoglobin 9.2 g/dl (14.0-18.0); Imm Gran Abs Auto 0.02 X10*3/uL (0.00-0.03); Imm Gran Pct Auto 0.4 % (0.0-0.4); Lymphocytes Absolute Auto 0.8 X10*3/uL (1.2-4.9); Lymphocytes Percent Auto 14.9 % (20-40); Mean Corpuscular HGB Conc 31.4 g/dl (31.0-36.0); Mean Corpuscular Hemoglobin 30.7 pg (27.0-33.0); Mean Corpuscular Volume 97.7 fL (80.0-98.0); Mean Platelet Volume 10.9 fL (9.4-12.4); Monocytes Absolute Auto 0.7 X10*3/uL (0.1-1.2); Monocytes Percent Auto 13.3 % (2-11); Neutrophils Absolute Auto 3.5 x10*3/uL (2.0-8.3); Neutrophils Percent Auto 67.1 % (45-73); Platelet Count 170 X10*3/uL (160-400); Red Cell Distribution Width 14.4 % (11.0-16.0); White Blood Count 5.2 X10*3/uL (4.8-10.8)
[2024-01-26 07:44] LABS: INTERNATIONAL NORM RATIO 1.4 (0.9-1.1); Prothrombin Time 16.5 SEC (11.1-13.3)
[2024-01-26 08:07] LABS: Ferritin 91 ng/mL (20-250)
[2024-01-26 18:02] LABS: OBS Int Ctl Valid YES; OBS1 NEGATIVE (NEGATIVE)
== END 2024-01-26 06:58 | disposition home or self-care (01) ==
LOC: HO.HSH2E 06:57
PROVIDERS: Visit Provider Internal Medicine Endocrinology, Diabetes & Metabolism
DX: Z12.5 Encounter for screening for malignant neoplasm of prostate (principal); D64.9 Anemia, unspecified; N40.0 Benign prostatic hyperplasia without lower urinary tract symptoms; Z95.2 Presence of prosthetic heart valve
CPT/HCPCS: 36415; 82272; 82728; 84153; 85025; 85610

== ENCOUNTER 2024-01-27 05:52 | Outpatient (REF) | payer MEDICARE, SELFPAY ==
[2024-01-30 10:33] LABS: IgA 269 mg/dL (70-320); IgG 1433 mg/dL (600-1540); IgM 107 mg/dL (50-300)
== END 2024-01-27 05:53 | disposition home or self-care (01) ==
LOC: HO.HSH2E 05:52
PROVIDERS: Visit Provider Internal Medicine Endocrinology, Diabetes & Metabolism
DX: D64.9 Anemia, unspecified (principal)
CPT/HCPCS: 36415; 82784; 86334

== ENCOUNTER 2024-01-29 05:57 | Outpatient (REF) | payer MEDICARE, SELFPAY ==
[2024-01-29 06:36] LABS: INTERNATIONAL NORM RATIO 1.6 (0.9-1.1); Prothrombin Time 19.5 SEC (11.1-13.3)
[2024-01-29 07:40] LABS: B Type Natriuretic Peptide 583 pg/mL (<100)
[2024-01-29 16:41] LABS: Appearance Urine Clear; Color Urine Yellow; Glucose Urine UA Negative (Negative); Leukocyte Esterase Urine Large (3+) (Negative); Nitrite Urine Negative (Negative); UMIC TRIGGER UA YES; Urine Blood Moderate (2+) (Negative); Urine Ketones Negative (Negative); Urine Protein Negative (Neg-Trace)
[2024-01-29 16:44] LABS: Bacteria Urine None Seen (None Seen); Hyaline Casts Urine 0-2 /LPF (0-2); RBC Urine >20 /HPF (0-2); Squamous Epithelial Cell Urine 0-2 /HPF (0-2); WBC Urine 21-50 /HPF (0-5)
== END 2024-01-29 05:58 | disposition home or self-care (01) ==
LOC: HO.HSH2E 05:57
PROVIDERS: Visit Provider Internal Medicine Endocrinology, Diabetes & Metabolism
DX: F07.81 Postconcussional syndrome (principal); I48.91 Unspecified atrial fibrillation
CPT/HCPCS: 36415; 81001; 83880; 85610

== ENCOUNTER 2024-01-30 05:40 | Outpatient (REF) | payer MEDICARE, SELFPAY ==
[2024-01-30 06:44] LABS: INTERNATIONAL NORM RATIO 1.7 (0.9-1.1); Prothrombin Time 20.2 SEC (11.1-13.3)
== END 2024-01-30 05:41 | disposition home or self-care (01) ==
LOC: HO.HSH2E 05:40
PROVIDERS: Visit Provider Internal Medicine Endocrinology, Diabetes & Metabolism
DX: Z79.01 Long term (current) use of anticoagulants (principal)
CPT/HCPCS: 36415; 85610

== ENCOUNTER 2024-02-02 06:28 | Outpatient (REF) | payer MEDICARE, SELFPAY ==
[2024-02-02 07:53] LABS: INTERNATIONAL NORM RATIO 1.7 (0.9-1.1); Prothrombin Time 20.6 SEC (11.1-13.3)
== END 2024-02-02 06:29 | disposition home or self-care (01) ==
LOC: HO.HSH2E 06:28
PROVIDERS: Visit Provider Internal Medicine Endocrinology, Diabetes & Metabolism
DX: I48.91 Unspecified atrial fibrillation (principal); Z95.2 Presence of prosthetic heart valve
CPT/HCPCS: 36415; 85610

== ENCOUNTER 2024-02-05 06:16 | Outpatient (REF) | payer MEDICARE, SELFPAY ==
[2024-02-05 07:16] LABS: INTERNATIONAL NORM RATIO 1.8 (0.9-1.1); Prothrombin Time 21.8 SEC (11.1-13.3)
== END 2024-02-05 06:17 | disposition home or self-care (01) ==
LOC: HO.HSH2E 06:16
PROVIDERS: Visit Provider Internal Medicine Endocrinology, Diabetes & Metabolism
DX: I48.91 Unspecified atrial fibrillation (principal)
CPT/HCPCS: 36415; 85610

== ENCOUNTER 2024-02-09 06:51 | Outpatient (REF) | payer MEDICARE, SELFPAY ==
[2024-02-09 07:55] LABS: INTERNATIONAL NORM RATIO 1.9 (0.9-1.1); Prothrombin Time 23.4 SEC (11.1-13.3)
== END 2024-02-09 06:52 | disposition home or self-care (01) ==
LOC: HO.HSH2E 06:51
PROVIDERS: Visit Provider Internal Medicine Endocrinology, Diabetes & Metabolism
DX: Z95.2 Presence of prosthetic heart valve (principal)
CPT/HCPCS: 36415; 85610

== ENCOUNTER 2024-02-16 07:00 | Outpatient (REF) | payer MEDICARE, SELFPAY ==
[2024-02-16 07:32] LABS: INTERNATIONAL NORM RATIO 2.3 (0.9-1.1); Prothrombin Time 28.5 SEC (11.1-13.3)
[2024-02-16 07:39] LABS: Anion Gap 15 (12-20); Blood Urea Nitrogen 44 mg/dL (9-16); Carbon Dioxide 22 mmol/L (22-29); Chloride 105 mmol/L (96-108); Estimated Glomerular Filt Rate 37; Glucose Random 70 mg/dL (60-115); Potassium 4.6 mmol/L (3.3-5.1); Sodium 137 mmol/L (135-145)
== END 2024-02-16 07:01 | disposition home or self-care (01) ==
LOC: HO.HSH2E 07:00
PROVIDERS: Visit Provider Internal Medicine Endocrinology, Diabetes & Metabolism
DX: Z95.2 Presence of prosthetic heart valve (principal); I50.9 Heart failure, unspecified
CPT/HCPCS: 36415; 80048; 85610

== ENCOUNTER 2024-02-18 15:05 | Outpatient (AMB) | payer MEDICARE, SELFPAY ==
--- NOTE | 2024-02-18 14:24 | HO.VETSHOME ---
Intake Intake Visit Reasons: Circumcision- follow up/ elevated PSA Allergies ceftriaxone Allergy (Verified 01/16/24 10:27) Unknown HPI HPI Comments History of Present Illness Details 02/18/24--s/p circumcision 01/20/24--Exam- mild erythematous changes around incision, sutures intact. Recommend lotrisone cream. PSA 12/22/23--25.91; PSA 01/16/24--20.30-- discussed with patient The patient is on coumadin. will start proscar 5 mg daily repeat PSA in 3 months Renal US 12/31/23-- reviewed report - WNL Review of chart: 12/24/23--Gume is a very pleasant 78-year-old male patient of Dr. Braxton who resides at the [facility]. He has a past medical history of type 2 diabetes, neuropathy, hypertension, cardiac murmur, hyperlipidemia, obesity, AFib, endocarditis, anemia, nonrheumatic aortic valve stenosis, chronic combined systolic and diastolic heart failure, and chronic kidney disease stage 3. He is being follow-up on today as a new patient for an elevated PSA. In discussion with the patient today he reports having newly moved into the [facility] at which time labs were ordered and patient was noted to have a elevated PSA and recommendations were made for urology referral for further assessment evaluation. In review of patient's chart it appears PSA 01/04 25.9. Patient reports having followed up with his previous PCP not to along and had blood work that was all WNL. He discusses his PCP was in [place] his name was Dr. Keys. He discusses having followed up with a urologist previously and was to undergo a circumcision for his longstanding phimosis however this was never performed. He feels this is his main concern. Discussed at length potential causes of elevated PSA. GINGER performed right-sided prostate noted to be semi firm left side boggy. Discussed potential prostatitis versus inflammation verses potential prostate cancer. In assessment of the patient today absolute no retraction to penile foreskin unable to visualize meatus. Patient reports he is emptying his bladder. Bladder scan was performed yesterday and no PVR noted. He does report baseline urinary frequency however does not find this bothersome. He otherwise denies hematuria, dysuria, foul smelling urine, changes to urinary stream, flank pain, fever, and or chills. He otherwise offers no other issues or concerns. [facility] Medical History Hx of decubitus ulcer Former smoker Peripheral neuropathy Compartment syndrome of right lower extremity Osteoarthritis Pancreatic cyst Gout ASHD (arteriosclerotic heart disease) Aortic stenosis Chronic kidney disease Chronic combined systolic and diastolic CHF (congestive heart failure) Nonrheumatic aortic (valve) stenosis Anemia Endocarditis Afib Obesity Hyperlipidemia Murmur HTN (hypertension) Neuropathy Diabetes Surgical History Hx of ankle fusion History of total bilateral knee replacement Hx of aortic valve replacement Social History Patient Tobacco Use Status: Former Tobacco user Review of Systems Const All systems reviewed & are unremarkable except as noted in HPI and below Reports no additional complaints Eyes Reports no additional complaints ENT Reports no additional complaints Card Reports no additional complaints Resp Reports no additional complaints GI Reports no additional complaints Reports as per HPI Musc Reports no additional complaints Skin/Breast Reports system reviewed and no additional complaints, except as documented Neuro Reports no additional complaints Psych Reports no additional complaints Endo Reports no additional complaints [place]/Lymph Reports no additional complaints Aller/Immun Reports no additional complaints Results Reviewed Results Reviewed: US Retroperitoneum- 12/31/23-- Kidneys - no calculi, or obstructive findings, Findings WNL. Assessment & Plan Assessment & Plan (1) Elevated PSA: Code(s): R97.20 - Elevated prostate specific antigen [PSA] (2) Prostatitis: Code(s): N41.9 - Inflammatory disease of prostate, unspecified (3) Phimosis: Code(s): N47.1 - Phimosis Plan s/p circumcision 01/20/24--Exam- mild erythematous changes around incision, sutures intact. Recommend lotrisone cream bid for 7 days, keep area dry. PSA 12/22/23--25.91; PSA 01/16/24--20.30-- discussed with patient The patient is on coumadin. will start proscar 5 mg daily repeat PSA in 3 months Renal US 12/31/23-- reviewed report - WNL Coding Level of Care Code 77593-[id number] Fac sub, mod Diagnoses Elevated PSA R97.20 Prostatitis N41.9 Phimosis N47.1
== END 2024-02-18 16:30 ==
LOC: HO.HUSV 15:05
PROVIDERS: PCP Internal Medicine Medical Oncology; Visit Provider Urology
DX: R97.20 Elevated prostate specific antigen [PSA] (principal); N41.9 Inflammatory disease of prostate, unspecified; N47.1 Phimosis
CPT/HCPCS: 99309

== ENCOUNTER 2024-02-24 06:14 | Outpatient (REF) | payer MEDICARE, SELFPAY ==
[2024-02-24 08:03] LABS: Albumin Level 3.4 g/dL (3.5-5.0); Calcium 10.3 mg/dL (8.4-10.2); INTERNATIONAL NORM RATIO 2.8 (0.9-1.1); Prothrombin Time 34.4 SEC (11.1-13.3)
== END 2024-02-24 06:15 | disposition home or self-care (01) ==
LOC: HO.HSH2E 06:14
PROVIDERS: Visit Provider Internal Medicine Endocrinology, Diabetes & Metabolism
DX: Z95.2 Presence of prosthetic heart valve (principal); E58 Dietary calcium deficiency
CPT/HCPCS: 36415; 82040; 82310; 83970; 85610

== ENCOUNTER 2024-02-25 06:34 | Outpatient (REF) | payer MEDICARE, SELFPAY ==
[2024-02-25 07:53] LABS: Parathyroid Hormone Intact 165.8 pg/mL (8.7-77.1)
== END 2024-02-25 06:35 | disposition home or self-care (01) ==
LOC: HO.HSH2E 06:34
PROVIDERS: Visit Provider Internal Medicine Endocrinology, Diabetes & Metabolism
DX: E03.9 Hypothyroidism, unspecified (principal)
CPT/HCPCS: 36415; 83970

== ENCOUNTER 2024-03-02 07:02 | Outpatient (REF) | payer MEDICARE, SELFPAY ==
[2024-03-02 07:59] LABS: INTERNATIONAL NORM RATIO 2.6 (0.9-1.1)
== END 2024-03-02 07:03 | disposition home or self-care (01) ==
LOC: HO.HSH2E 07:02
PROVIDERS: Visit Provider Internal Medicine Endocrinology, Diabetes & Metabolism
DX: Z95.2 Presence of prosthetic heart valve (principal)
CPT/HCPCS: 36415; 85610

== ENCOUNTER 2024-03-03 06:33 | Outpatient (REF) | payer MEDICARE, SELFPAY ==
[2024-03-03 06:36] LABS: MANUAL DIFF FLAG NO
[2024-03-03 07:15] LABS: Basophils Percent Auto 0.7 % (0-2); Eosinophils Absolute Auto 0.1 X10*3/uL (0.0-0.4); Eosinophils Percent Auto 3.3 % (0-4); Hematocrit 29.2 % (42.0-52.0); Hemoglobin 9.1 g/dl (14.0-18.0); Imm Gran Abs Auto 0.01 X10*3/uL (0.00-0.03); Imm Gran Pct Auto 0.2 % (0.0-0.4); Lymphocytes Absolute Auto 0.6 X10*3/uL (1.2-4.9); Lymphocytes Percent Auto 13.3 % (20-40); Mean Corpuscular HGB Conc 31.2 g/dl (31.0-36.0); Mean Corpuscular Hemoglobin 29.5 pg (27.0-33.0); Mean Corpuscular Volume 94.8 fL (80.0-98.0); Mean Platelet Volume 10.9 fL (9.4-12.4); Monocytes Absolute Auto 0.8 X10*3/uL (0.1-1.2); Monocytes Percent Auto 17.5 % (2-11); Neutrophils Absolute Auto 2.8 x10*3/uL (2.0-8.3); Platelet Count 149 X10*3/uL (160-400); Red Blood Count 3.08 X10*6/uL (4.60-5.80); Red Cell Distribution Width 13.5 % (11.0-16.0); White Blood Count 4.3 X10*3/uL (4.8-10.8)
[2024-03-03 07:28] LABS: Anion Gap 11 (12-20); Blood Urea Nitrogen 55 mg/dL (9-16); Calcium 10.2 mg/dL (8.4-10.2); Carbon Dioxide 26 mmol/L (22-29); Chloride 103 mmol/L (96-108); Estimated Glomerular Filt Rate 33; Glucose Random 95 mg/dL (60-115); Potassium 4.3 mmol/L (3.3-5.1); Sodium 136 mmol/L (135-145)
== END 2024-03-03 06:34 | disposition home or self-care (01) ==
LOC: HO.HSH2E 06:33
PROVIDERS: Visit Provider Nurse Practitioner Acute Care
DX: U07.1 COVID-19 (principal)
CPT/HCPCS: 36415; 80048; 85025

== ENCOUNTER 2024-03-05 06:33 | Outpatient (REF) | payer MEDICARE, SELFPAY ==
[2024-03-05 07:18] LABS: INTERNATIONAL NORM RATIO 2.8 (0.9-1.1); Prothrombin Time 34.7 SEC (11.1-13.3)
[2024-03-05 07:41] LABS: Anion Gap 14 (12-20); Blood Urea Nitrogen 54 mg/dL (9-16); Carbon Dioxide 22 mmol/L (22-29); Chloride 106 mmol/L (96-108); Estimated Glomerular Filt Rate 34; Glucose Random 71 mg/dL (60-115); Potassium 4.2 mmol/L (3.3-5.1); Sodium 138 mmol/L (135-145)
== END 2024-03-05 06:34 | disposition home or self-care (01) ==
LOC: HO.HSH2E 06:33
PROVIDERS: Visit Provider Internal Medicine Interventional Cardiology
DX: I48.91 Unspecified atrial fibrillation (principal); N18.31 Chronic kidney disease, stage 3a; Z95.2 Presence of prosthetic heart valve
CPT/HCPCS: 36415; 80048; 85610

== ENCOUNTER 2024-03-08 06:34 | Outpatient (REF) | payer MEDICARE, SELFPAY ==
[2024-03-08 07:20] LABS: INTERNATIONAL NORM RATIO 2.7 (0.9-1.1); Prothrombin Time 32.6 SEC (11.1-13.3)
== END 2024-03-08 06:35 | disposition home or self-care (01) ==
LOC: HO.HSH2S 06:34
PROVIDERS: Visit Provider Internal Medicine Interventional Cardiology
DX: I48.91 Unspecified atrial fibrillation (principal); Z95.2 Presence of prosthetic heart valve
CPT/HCPCS: 36415; 85610

== ENCOUNTER 2024-03-09 07:02 | Outpatient (REF) | payer MEDICARE, SELFPAY ==
[2024-03-09 08:02] LABS: INTERNATIONAL NORM RATIO 2.6 (0.9-1.1); Prothrombin Time 31.2 SEC (11.1-13.3)
== END 2024-03-09 07:03 | disposition home or self-care (01) ==
LOC: HO.HSH2S 07:02
PROVIDERS: Visit Provider Internal Medicine Interventional Cardiology
DX: Z95.2 Presence of prosthetic heart valve (principal)
CPT/HCPCS: 36415; 85610

== ENCOUNTER 2024-03-16 06:36 | Outpatient (REF) | payer MEDICARE, SELFPAY ==
[2024-03-16 07:32] LABS: INTERNATIONAL NORM RATIO 1.9 (0.9-1.1); Prothrombin Time 23.1 SEC (11.1-13.3)
== END 2024-03-16 06:37 | disposition home or self-care (01) ==
LOC: HO.HSH2E 06:36
PROVIDERS: Visit Provider Internal Medicine Interventional Cardiology
DX: I48.91 Unspecified atrial fibrillation (principal)
CPT/HCPCS: 36415; 85610

== ENCOUNTER 2024-03-23 08:13 | Outpatient (REF) | payer MEDICARE, SELFPAY ==
[2024-03-23 08:57] LABS: INTERNATIONAL NORM RATIO 1.8 (0.9-1.1); Prothrombin Time 21.7 SEC (11.1-13.3)
== END 2024-03-23 08:14 | disposition home or self-care (01) ==
LOC: HO.HSH2E 08:13
PROVIDERS: Visit Provider Internal Medicine Endocrinology, Diabetes & Metabolism
DX: I48.91 Unspecified atrial fibrillation (principal); Z95.2 Presence of prosthetic heart valve
CPT/HCPCS: 36415; 85610

== ENCOUNTER 2024-03-25 07:05 | Outpatient (REF) | payer MEDICARE, SELFPAY ==
[2024-03-25 08:09] LABS: Uric Acid 11.6 mg/dL (3.4-7.0)
== END 2024-03-25 07:06 | disposition home or self-care (01) ==
LOC: HO.HSH2E 07:05
PROVIDERS: Visit Provider Internal Medicine Endocrinology, Diabetes & Metabolism
DX: M10.9 Gout, unspecified (principal)
CPT/HCPCS: 36415; 84550

== ENCOUNTER 2024-04-07 06:15 | Outpatient (REF) | payer MEDICARE, SELFPAY ==
[2024-04-07 07:06] LABS: INTERNATIONAL NORM RATIO 3.2 (0.9-1.1); Prothrombin Time 37.2 SEC (10.9-12.4)
== END 2024-04-07 06:16 | disposition home or self-care (01) ==
LOC: HO.HSH2E 06:15
PROVIDERS: Visit Provider Internal Medicine Endocrinology, Diabetes & Metabolism
DX: I48.91 Unspecified atrial fibrillation (principal)
CPT/HCPCS: 36415; 85610

== ENCOUNTER 2024-04-14 06:07 | Outpatient (REF) | payer MEDICARE, SELFPAY ==
[2024-04-14 06:39] LABS: INTERNATIONAL NORM RATIO 2.9 (0.9-1.1); Prothrombin Time 34.4 SEC (10.9-12.4)
== END 2024-04-14 06:08 | disposition home or self-care (01) ==
LOC: HO.HSH2E 06:07
PROVIDERS: Visit Provider Internal Medicine Endocrinology, Diabetes & Metabolism
DX: Z95.2 Presence of prosthetic heart valve (principal)
CPT/HCPCS: 36415; 85610

== ENCOUNTER 2024-04-21 06:17 | Outpatient (REF) | payer MEDICARE, SELFPAY ==
[2024-04-21 06:51] LABS: INTERNATIONAL NORM RATIO 3.1 (0.9-1.1); Prothrombin Time 35.9 SEC (10.9-12.4)
== END 2024-04-21 06:18 | disposition home or self-care (01) ==
LOC: HO.HSH2E 06:17
PROVIDERS: Visit Provider Internal Medicine Endocrinology, Diabetes & Metabolism
DX: Z95.2 Presence of prosthetic heart valve (principal); Z79.01 Long term (current) use of anticoagulants
CPT/HCPCS: 36415; 85610

== ENCOUNTER 2024-05-04 05:38 | Outpatient (REF) | payer MEDICARE, SELFPAY ==
[2024-05-04 06:23] LABS: Prostate Specific Antigen 12.26 ng/mL (<0.05-4.0)
== END 2024-05-04 05:39 | disposition home or self-care (01) ==
LOC: HO.HSH2E 05:38
PROVIDERS: Visit Provider Internal Medicine Endocrinology, Diabetes & Metabolism
DX: Z12.5 Encounter for screening for malignant neoplasm of prostate (principal); C61 Malignant neoplasm of prostate
CPT/HCPCS: 36415; 84153

== ENCOUNTER 2024-05-05 05:50 | Outpatient (REF) | payer MEDICARE, SELFPAY ==
[2024-05-05 06:27] LABS: INTERNATIONAL NORM RATIO 3.3 (0.9-1.1); Prothrombin Time 38.8 SEC (10.9-12.4)
== END 2024-05-05 05:51 | disposition home or self-care (01) ==
LOC: HO.HSH2E 05:50
PROVIDERS: Visit Provider Internal Medicine Endocrinology, Diabetes & Metabolism
DX: Z95.2 Presence of prosthetic heart valve (principal)
CPT/HCPCS: 36415; 85610

== ENCOUNTER 2024-05-12 05:29 | Outpatient (REF) | payer MEDICARE, SELFPAY ==
[2024-05-12 06:06] LABS: INTERNATIONAL NORM RATIO 3.1 (0.9-1.1); Prothrombin Time 36.3 SEC (10.9-12.4)
== END 2024-05-12 05:30 | disposition home or self-care (01) ==
LOC: HO.HSH2E 05:29
PROVIDERS: Visit Provider Internal Medicine Endocrinology, Diabetes & Metabolism
DX: I48.91 Unspecified atrial fibrillation (principal); Z95.2 Presence of prosthetic heart valve
CPT/HCPCS: 36415; 85610

== ENCOUNTER 2024-05-19 11:36 | Outpatient (AMB) | payer MEDICARE, SELFPAY ==
--- NOTE | 2024-05-18 17:08 | HO.VETSHOME ---
Intake Intake Visit Reasons: PSA follow up Allergies ceftriaxone Allergy (Verified 01/16/24 10:27) Unknown HPI HPI Comments History of Present Illness Details 05/04/24--PSA--12.26 ng/mL. Gume is being followed for elevated PSA. He is on Proscar. Reviewed PSA with patient and his . He denies dysuria feels that he is emptying his bladder well. We will continue Proscar. Continue to monitor PSA. s/p circumcision 01/20/24--Exam- mild erythematous changes around incision, sutures intact. Recommend lotrisone cream bid for 7 days, keep area dry. PSA 12/22/23--25.91; PSA 01/16/24--20.30-- discussed with patient The patient is on coumadin. will start proscar 5 mg daily repeat PSA in 3 months Renal US 12/31/23-- reviewed report - WNL [facility] Medical History Hx of decubitus ulcer Former smoker Peripheral neuropathy Compartment syndrome of right lower extremity Osteoarthritis Pancreatic cyst Gout ASHD (arteriosclerotic heart disease) Aortic stenosis Chronic kidney disease Chronic combined systolic and diastolic CHF (congestive heart failure) Nonrheumatic aortic (valve) stenosis Anemia Endocarditis Afib Obesity Hyperlipidemia Murmur HTN (hypertension) Neuropathy Diabetes Surgical History Hx of ankle fusion History of total bilateral knee replacement Hx of aortic valve replacement Social History Patient Tobacco Use Status: Former Tobacco user Results Reviewed Results Reviewed: US Retroperitoneum- 12/31/23-- Kidneys - no calculi, or obstructive findings, Findings WNL. Assessment & Plan Assessment & Plan (1) Elevated PSA: Code(s): R97.20 - Elevated prostate specific antigen [PSA] (2) Prostatitis: Code(s): N41.9 - Inflammatory disease of prostate, unspecified (3) Phimosis: Code(s): N47.1 - Phimosis Plan Continue Proscar. Continue to monitor PSA. Patient Instructions: The patient had an opportunity to ask questions regarding treatment plan. The patient expressed understanding and agreement with the above treatment plan. The patient is aware they should contact our office by phone for worsening of their current condition or the appearance of new symptoms. Compliance is encouraged with any medications and followup testing that is ordered. It is a privilege to be allowed the opportunity to participate in the urologic care of your patient. If you have any questions or concerns regarding treatment for the above conditions please do not hesitate to contact me. The office telephone contact is [phone]. This note is constructed in part using voice recognition software. While every effort has been made to ensure accuracy enforcement officer errors may have been included. Yours sincerely, Antwan Saha MD Coding Level of Care Code 16834-Jbry Fac sub, low Diagnoses Elevated PSA R97.20 Prostatitis N41.9 Phimosis N47.1
== END 2024-05-19 16:30 | disposition home or self-care (01) ==
LOC: HO.HUSV 11:36
PROVIDERS: PCP Internal Medicine Medical Oncology; Visit Provider Urology
DX: R97.20 Elevated prostate specific antigen [PSA] (principal); N41.9 Inflammatory disease of prostate, unspecified; N47.1 Phimosis
CPT/HCPCS: 99308

== ENCOUNTER 2024-05-26 05:59 | Outpatient (REF) | payer MEDICARE, SELFPAY ==
[2024-05-26 06:24] LABS: INTERNATIONAL NORM RATIO 2.6 (0.9-1.1); Prothrombin Time 30.1 SEC (10.9-12.4)
== END 2024-05-26 06:00 | disposition home or self-care (01) ==
LOC: HO.HSH2E 05:59
PROVIDERS: Visit Provider Internal Medicine Endocrinology, Diabetes & Metabolism
DX: Z95.2 Presence of prosthetic heart valve (principal); Z79.01 Long term (current) use of anticoagulants
CPT/HCPCS: 36415; 85610

== ENCOUNTER 2024-06-04 05:50 | Outpatient (REF) | payer MEDICARE, SELFPAY ==
[2024-06-04 06:02] LABS: INTERNATIONAL NORM RATIO 2.5 (0.9-1.1); Prothrombin Time 29.7 SEC (10.9-12.4)
== END 2024-06-04 05:51 | disposition home or self-care (01) ==
LOC: HO.HSH2E 05:50
PROVIDERS: Visit Provider Internal Medicine Interventional Cardiology
DX: R31.9 Hematuria, unspecified (principal)
CPT/HCPCS: 36415; 85610

== ENCOUNTER 2024-06-09 06:09 | Outpatient (REF) | payer MEDICARE, SELFPAY ==
[2024-06-09 07:08] LABS: INTERNATIONAL NORM RATIO 2.4 (0.9-1.1); Prothrombin Time 27.6 SEC (10.9-12.4)
== END 2024-06-09 06:10 | disposition home or self-care (01) ==
LOC: HO.HSH2E 06:09
PROVIDERS: Visit Provider Internal Medicine Endocrinology, Diabetes & Metabolism
DX: Z95.2 Presence of prosthetic heart valve (principal)
CPT/HCPCS: 36415; 85610

== ENCOUNTER 2024-06-23 05:41 | Outpatient (REF) | payer MEDICARE, SELFPAY ==
[2024-06-23 06:00] LABS: INTERNATIONAL NORM RATIO 2.7 (0.9-1.1); Prothrombin Time 31.1 SEC (10.9-12.4)
== END 2024-06-23 05:42 | disposition home or self-care (01) ==
LOC: HO.HSH2E 05:41
PROVIDERS: Visit Provider Internal Medicine Endocrinology, Diabetes & Metabolism
DX: Z95.2 Presence of prosthetic heart valve (principal)
CPT/HCPCS: 36415; 85610

== ENCOUNTER → 2024-06-23 13:29 | Outpatient (AMB) | payer MEDICARE, SELFPAY ==
--- NOTE | 2024-06-23 13:29 | HO.VETSHOME ---
Intake Intake Visit Reasons: circumcision dermatitis Intake Note: [facility]: Phimosis Motion Picture Director Required: No Allergies ceftriaxone Allergy (Verified 06/23/24 20:21) Unknown Medication List - Last Reconciled 06/23/24 by GRACIELA Humphries acetaminophen 650 mg PO Q4H PRN acetaminophen-codeine 300-30 mg 1 tab PO .q6-q8h PRN doxycycline hyclate 100 mg PO BID enoxaparin (Lovenox) 120 mg subcut Q12H furosemide 20 mg PO DAILY gabapentin 300 mg PO BID mecobalamin (vitamin B12) 1,000 mcg PO DAILY metoprolol succinate ER 100 mg PO DAILY metoprolol tartrate 50 mg PO DAILY simvastatin 20 mg PO BEDTIME warfarin 5 mg PO Q OTHER DAY HPI HPI Comments History of Present Illness Details Gume is a very pleasant 79-year-old male patient [facility] He has a past medical history of type 2 diabetes, neuropathy, hypertension, cardiac murmur, hyperlipidemia, obesity, AFib, endocarditis, anemia, nonrheumatic aortic valve stenosis, chronic combined systolic and diastolic heart failure, and chronic kidney disease stage 3. He is being followed up on today for penile irritation. Of note, patient underwent circumcision 01/20/[address] Ruiz No. In assessment of the patient today the penis is circumcised. Hopkins of glans and neck of glands appear irritated and moist. There is scant blood upon cleaning the site. Discussed proper care of area and importance of keeping area dry to assist with healing. He otherwise denies any other urological issues or concerns at this time. He denies hematuria, dysuria, foul smelling urine, changes to urinary stream, flank pain, fever, and or chills. He otherwise offers no other issues or concerns. Patient also with a history of an elevated PSA and was recently started on Proscar. PSAs are as follows: 01/04 25.91, 02/03 20.30, 05/06 12.3. PFSH Medical History Hx of decubitus ulcer Former smoker Peripheral neuropathy Compartment syndrome of right lower extremity Osteoarthritis Pancreatic cyst Gout ASHD (arteriosclerotic heart disease) Aortic stenosis Chronic kidney disease Chronic combined systolic and diastolic CHF (congestive heart failure) Nonrheumatic aortic (valve) stenosis Anemia Endocarditis Afib Obesity Hyperlipidemia Murmur HTN (hypertension) Neuropathy Diabetes Surgical History Hx of ankle fusion History of total bilateral knee replacement Hx of aortic valve replacement Social History Patient Tobacco Use Status: Former Tobacco user Review of Systems Const Reports no additional complaints Eyes Reports no additional complaints ENT Reports no additional complaints Card Reports as per HPI Resp Reports no additional complaints GI Reports no additional complaints Reports as per HPI Musc Reports as per HPI Neuro Reports no additional complaints Psych Reports no additional complaints Endo Reports as per HPI [place]/Lymph Reports no additional complaints Aller/Immun Reports no additional complaints Physical Exam Const General: cooperative, healthy appearing, comfortable, no acute distress, well developed, alert and awake Nutritional Appearance: overweight Orientation/consciousness: patient oriented x3 Limitations: other limitations (in bed ) HEENT Head: Yes normal to inspection, Yes normocephalic and Yes atraumatic Ears: hearing grossly normal bilaterally Eyes General: appearance normal, both eyes and all related structures Neck Neck: Yes normal visual inspection and Yes trachea midline Chest Chest palpation & inspection: normal inspection of the chest Resp Effort & Inspection: normal respiratory effort and able to speak in complete sentences Cardio Rate: regular rate GI Inspection: Yes normal to inspection Other: Per HPI Scrotum: scrotum normal Testes: Testes normal Skin General skin exam: no rashes or lesions noted Neuro General: patient oriented x3 Extrem General: Yes normal to inspection Psych Appearance: grossly normal and well kempt Mental Status: mental status grossly normal Speech and movement: Normal speech and movement present and Clear speech present Affect: normal affect Attitude: cooperative Thought process: Normal thought process present Thought content: Normal thought content present Insight: Fair insight present (Psych) Judgement: Fair judgement present (Psych) Assessment & Plan Assessment & Plan (1) Elevated PSA: Code(s): R97.20 - Elevated prostate specific antigen [PSA] (2) Urinary frequency: Code(s): R35.0 - Frequency of micturition (3) Penile irritation: Code(s): N48.89 - Other specified disorders of penis Plan Start clotrimazole/betamethasone as discussed and prescribed. Continue to monitor PSA as planned. Continue urological medications as prescribed. Patient currently denies any bothersome urinary issues or concerns. He reports be happy with current voiding parameters. Discussed importance of keeping area dry in relation to penile irritation. Follow-up next month; or sooner with any issues, concerns, and or questions. Patient Instructions: The patient had an opportunity to ask questions regarding the treatment plan. All questions were answered. Physical exam, labs, and imaging were discussed and reviewed in detail. As well as risks, benefits, and discussion of treatment choices. No major barriers to understanding were identified. The patient expressed understanding and agreement with the above treatment plan. The patient was made aware they should contact our office by phone for worsening of their current condition, the appearance of new symptoms, or with any questions or concerns. Compliance is encouraged with any medications and follow up testing that is ordered. It is a privilege to be allowed the opportunity to participate in? your urological care.? Again, if you have any questions or concerns If you have any questions or concerns please do not hesitate to contact me. The office is [phone]. This note is constructed using voice recognition software. While every effort has been made to ensure accuracy colored leather setter errors may have been included. Yours sincerely, GRACIELA Humphries Coding Level of Care Code 34057-Mpag Fac sub, mod Diagnoses Elevated PSA R97.20 Urinary frequency R35.0 Penile irritation N48.89
--- OUTSIDE RECORDS SUMMARY | 2024-06-24 02:27 | XMS_ITS | Clinical Summary ---
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 Active 11-16 00:00: 00 UNSPECIFIED OPEN WOUND, RIGHT LOWER LEG, SUBS ENCNTR Active 11-16 00:00: 00 ACUTE AND SUBACUTE ENDOCARDITIS , UNSPECIFIED Active 11-16 00:00: 00 NONRHEUMATIC AORTIC (VALVE) STENOSIS Active 10-22 00:00: 00 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 CHR KDNY Active 10-22 00:00: 00 CHRONIC SYSTOLIC (CONGESTIVE) HEART FAILURE Active 10-22 00:00: 00 TYPE 2 DIABETES MELLITUS W DIABETIC CHRONIC KIDNEY DISEASE Active 10-22 00:00: 00 CHRONIC KIDNEY DISEASE, STAGE 4 (SEVERE) Active 10-22 00:00: 00 PULMONARY HYPERTENSION , UNSPECIFIED Active 07-14 00:00: 00 LEFT BUNDLE-BRANC H BLOCK, UNSPECIFIED Active 07-14 00:00: 00 NONRHEUMATIC MITRAL (VALVE) STENOSIS Active 07-14 00:00: 00 OCCLUSION AND STENOSIS OF RIGHT CAROTID ARTERY Active 07-14 00:00: 00 GOUT DUE TO RENAL IMPAIRMENT, UNSPECIFIED SITE Active 07-14 00:00: 00 OTHER SPECIFIED DISEASES OF PANCREAS Active 07-14 00:00: 00 MORBID (SEVERE) OBESITY DUE TO EXCESS CALORIES Active 07-14 00:00: 00 BODY MASS INDEX [BMI] 37.0-37.9, ADULT Active 07-14 00:00: 00 ENCOUNTER FOR THERAPEUTIC DRUG LEVEL MONITORING Active 11-18 00:00: 00 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 ARTIST (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 OF ANTICOAGULAN TS Active 11-18 00:00: 00 PERSONAL HISTORY OF COVID-19 Active 09-09 00:00: 00 PERSONAL HISTORY OF URINARY (TRACT) INFECTIONS Active 09-09 00:00: 00 PRESENCE OF PROSTHETIC HEART VALVE Active 09-09 00:00: 00 PERSONAL HISTORY OF OTHER VENOUS THROMBOSIS AND EMBOLISM Active 07-14 00:00: 00 PRESENCE OF ARTIFICIAL KNEE JOINT, BILATERAL Active 07-14 00:00: 00 HALFWAY (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 OF INSULIN Active 11-18 00:00: 00 Allergies, Adverse Reactions, Alerts Allergy Name Allergy Type Status Severity Reaction(s) Onset Date Inactive Date Treating Clinician Comments NO KNOWN ALLERGIES Propensity to adverse reactions Active 11-18 19:01: 02 Medications Ordered Medication Name Filled Medication Name Start Date Stop Date Current Medication? Ordering Clinician Indication Dosage Frequency Signature (SIG) Comments Components allopurinol 100 mg tablet 11-18 00:00: 00 Yes [id number] FOR GOUT 100 mg DAILY 100 mg DAILY (route: oral) Med Classific ation: Gout and Hyperuric emia Therapy Aspirin Low Dose 81 mg tablet,alvina yed release 11-18 00:00: 00 Yes [id number] CARDIAC HEALTH 81 mg DAILY 81 mg DAILY (route: oral) Med Classific ation: Hematolog ical Agents Basaglar KwikPen U-100 Insulin 100 unit/mL (3 mL) subcutaneou s 11-18 00:00: 00 Yes [id number] TREATS DIABETES 10 unit BEDTIME 10 unit BEDTIME (route: subcutaneo us) Med Classific ation: Endocrine cephalexin 250 mg capsule 11-18 00:00: 00 Yes [id number] TREATS ENDOCARDITI S 250 mg EVERY 12 HOURS 250 mg EVERY 12 HOURS (route: oral) Med Classific ation: Anti-Infe ctive Agents Colace 100 mg capsule 11-18 00:00: 00 Yes [id number] STOOL SOFTNER 100 mg 2 TIMES DAILY 100 mg 2 TIMES DAILY (route: oral) Med Classific ation: Gastroint estinal Therapy Agents Milk of Magnesia 400 mg/5 mL oral suspension 11-18 00:00: 00 Yes [id number] TREATS CONSTIPATIO N 30 mL DAILY 30 mL DAILY (route: oral) Med Classific ation: Gastroint estinal Therapy Agents Probiotic 10 billion cell capsule 11-18 00:00: 00 Yes [id number] SUPPLEMENT 1 capsule DAILY 1 capsule DAILY (route: oral) Med Classific ation: Gastroint estinal Therapy Agents torsemide 20 mg tablet 11-18 00:00: 00 Yes [id number] DIURETIC 40 mg DAILY 40 mg DAILY (route: oral) Med Classific ation: Cardiovas cular Therapy Agents Tylenol Arthritis Pain 650 mg tablet,exte nded release 11-18 00:00: 00 Yes [id number] FOR PAIN 650 mg EVERY 4 HOURS 650 mg EVERY 4 HOURS (route: oral) Med Classific ation: Analgesic , Anti-infl ammatory or Antipyret ic warfarin 6 mg tablet 11-18 00:00: 00 Yes [id number] BLOOD THINNER 6 mg DAILY 6 mg DAILY (route: oral) Med Classific ation: Hematolog ical Agents Zocor 20 mg tablet 11-18 00:00: 00 Yes [id number] TREATS HIGH CHOLESTEROL 40 mg BEDTIME 40 mg BEDTIME (route: oral) Med Classific ation: Cardiovas cular Therapy Agents insulin lispro (U-100) 100 unit/mL subcutaneou s pen 11-18 00:00: 00 Yes [id number] TREATS DIABETES 2 unit NEEDED 2 unit NEEDED (route: subcutaneo ) Med Classific ation: Endocrine insulin lispro (U-100) 100 unit/mL subcutaneou s pen 11-18 00:00: 00 Yes [id number] TREATS DIABETES 4 unit DIRECTED 4 unit DIRECTED (route: subcutaneo us) Med Classific ation: Endocrine insulin lispro (U-100) 100 unit/mL subcutaneou s pen 11-18 00:00: 00 Yes [id number] TREATS DIABETES 6 unit DIRECTED 6 unit DIRECTED (route: subcutaneo us) Med Classific ation: Endocrine insulin lispro (U-100) 100 unit/mL subcutaneou s pen 11-18 00:00: 00 Yes [id number] TREATS DIABETES 8 unit DIRECTED 8 unit DIRECTED (route: subcutaneo us) Med Classific ation: Endocrine insulin lispro (U-100) 100 unit/mL subcutaneou s pen 11-18 00:00: 00 Yes [id number] TREATS DIABETES 10 unit DIRECTED 10 unit DIRECTED (route: subcutaneo us) Med Classific ation: Endocrine Immunizations Ordered Immunization Name Filled Immunization Name Date Status Comments Refusal Reason BOOSTER -COVID-19 VACCINE, COVID-19 VACCINE 2021-09-27 00:00:00 INFLUENZA, TIV (INACTIVATED) 2021-04-24 00:00:00 DOSE #2, COVID-19 VACCINE 2020-11-21 00:00:00 DOSE #1, COVID-19 VACCINE 2020-10-29 00:00:00 PNEUMOCOCCAL (PPV), PPV 2020-03-09 00:00:00 SHINGLES, TIV (INACTIVATED) 2018-08-05 00:00:00 Vital Signs Vital Name Observation Time Observation Value Commen ts Temperature 2021-11-26 09:20:00.000 98.6 [degF] Temperature 2021-11-23 10:42:00.000 97.7 [degF] Temperature 2021-11-22 22:08:00.000 97.3 [degF] Temperature 2021-11-20 14:42:00.000 97.7 [degF] Temperature 2021-11-19 12:25:00.000 97.5 [degF] Temperature 2021-11-19 11:57:00.000 97.1 [degF] Temperature 2021-11-18 11:08:00.000 97.7 [degF] Height 2021-11-18 11:08:00.000 70 [in_us] Pulse 2021-11-26 09:20:00.000 80 /min Pulse 2021-11-23 10:42:00.000 76 /min Pulse 2021-11-22 22:08:00.000 74 /min Pulse 2021-11-20 14:44:00.000 71 /min Pulse 2021-11-19 12:25:00.000 62 /min Pulse 2021-11-19 11:57:00.000 70 /min Pulse 2021-11-18 11:08:00.000 60 /min O2 Saturation (%) 2021-11-26 09:20:00.000 98 % O2 Saturation (%) 2021-11-23 10:42:00.000 99 % O2 Saturation (%) 2021-11-19 12:25:00.000 100 % O2 Saturation (%) 2021-11-19 11:57:00.000 96 % O2 Saturation (%) 2021-11-18 11:09:00.000 98 % Respirations 2021-11-26 09:20:00.000 18 /min Respirations 2021-11-23 10:42:00.000 18 /min Respirations 2021-11-22 22:08:00.000 18 /min Respirations 2021-11-19 12:25:00.000 16 /min Respirations 2021-11-19 11:57:00.000 18 /min Respirations 2021-11-18 11:08:00.000 18 /min Weight (lbs) 2021-11-26 09:20:00.000 268 [lb_av] Weight (lbs) 2021-11-18 11:08:00.000 260 [lb_av] Systolic Blood Pressure 2021-11-26 09:20:00.000 136 mm [Hg] Systolic Blood Pressure 2021-11-23 11:09:00.000 122 mm [Hg] Systolic Blood Pressure 2021-11-23 10:42:00.000 100 mm [Hg] Systolic Blood Pressure 2021-11-22 22:08:00.000 128 mm [Hg] Systolic Blood Pressure 2021-11-20 14:48:00.000 119 mm [Hg] Systolic Blood Pressure 2021-11-19 12:25:00.000 110 mm [Hg] Systolic Blood Pressure 2021-11-19 11:57:00.000 138 mm [Hg] Systolic Blood Pressure 2021-11-18 11:08:00.000 118 mm [Hg] Diastolic Blood Pressure 2021-11-26 09:20:00.000 60 mm [Hg] Diastolic Blood Pressure 2021-11-23 11:09:00.000 70 mm [Hg] Diastolic Blood Pressure 2021-11-23 10:42:00.000 58 mm [Hg] Diastolic Blood Pressure 2021-11-22 22:08:00.000 74 mm [Hg] Diastolic Blood Pressure 2021-11-20 14:48:00.000 59 mm [Hg] Diastolic Blood Pressure 2021-11-19 12:25:00.000 50 mm [Hg] Diastolic Blood Pressure 2021-11-19 11:57:00.000 64 mm [Hg] Diastolic Blood Pressure 2021-11-18 11:08:00.000 68 mm [Hg] Plan of Treatment Planned Activity Planned Date Details Comments Future Scheduled Test MEDICATION MANAGEMENT; SKILLED NURSE TO REVIEW MEDICATIONS FOR INTERACTIONS, EFFECTIVENESS OF DRUG THERAPY, AND SIGNS/SYMPTOMS OF ADVERSE REACTIONS. MAY INSTRUCT AND REINFORCE MEDICATION TEACHING RELATED TO THE USE OF MEDICATIONS, DOSAGE, FREQUENCY, PURPOSE, SIDE EFFECTS, AND TO REPORT COMPLICATIONS. [code = MEDICATION MANAGEMENT; SKILLED NURSE TO REVIEW MEDICATIONS FOR INTERACTIONS, EFFECTIVENESS OF DRUG THERAPY, AND SIGNS/SYMPTOMS OF ADVERSE REACTIONS. MAY INSTRUCT AND REINFORCE MEDICATION TEACHING RELATED TO THE USE OF MEDICATIONS, DOSAGE, FREQUENCY, PURPOSE, SIDE EFFECTS, AND TO REPORT COMPLICATIONS.] Future Scheduled Test ANTICOAGUL ATION MANAGEMENT; SKILLED NURSE TO ASSESS, TEACH, AND MONITOR EFFECTIVENESS OF ANTICOAGULATION THERAPY. SKILLED NURSE TO INSTRUCT ON SIGNS AND SYMPTOMS OF BLEEDING/ADVERSE REACTIONS TO REPORT TO PHYSICIAN. [code = ANTICOAGULATION MANAGEMENT; SKILLED NURSE TO ASSESS, TEACH, AND MONITOR EFFECTIVENESS OF ANTICOAGULATION THERAPY. SKILLED NURSE TO INSTRUCT ON SIGNS AND SYMPTOMS OF BLEEDING/ADVERSE REACTIONS TO REPORT TO PHYSICIAN. ] Future Scheduled Test FALL REDUC TION MANAGEMENT; NURSING TO PROVIDE SKILLED ASSESSMENT, EDUCATION, AND INTERVENTION TO IDENTIFY FALL RISK FACTORS SUCH MEDICATIONS THAT MAY CAUSE DIZZINESS, CHRONIC DISEASES, PSYCHOLOGICAL FACTORS, AND EMPOWER/EDUCATE PATIENT/CAREGIVER TO MINIMIZE FALL RISK. [code = FALL REDUCTION MANAGEMENT; NURSING TO PROVIDE SKILLED ASSESSMENT, EDUCATION, AND INTERVENTION TO IDENTIFY FALL RISK FACTORS SUCH MEDICATIONS THAT MAY CAUSE DIZZINESS, CHRONIC DISEASES, PSYCHOLOGICAL FACTORS, AND EMPOWER/EDUCATE PATIENT/CAREGIVER TO MINIMIZE FALL RISK.] Future Scheduled Test DIABETES M ANAGEMENT; SKILLED NURSE FOR INSTRUCTIONS OF DIABETIC CARE TO INCLUDE: DIET DIABETIC SKIN CARE, SIGNS AND SYMPTOMS OF HYPO/HYPERGLYCEMIA, PROPER ADMINISTRATION OF DIABETIC MEDICATION. SKILLED NURSE TO INSTRUCT ON DIABETIC FOOT CARE AND MONITOR FOR SKIN LESIONS ON LOWER EXTREMITIES. BLOOD GLUCOSE TESTING BEFORE MEALS AND AT BEDTIME. SKILLED NURSE TO ASSESS PATIENT/CAREGIVER ABILITY TO PERFORM AND RECORD BLOOD GLUCOSE TESTING ORDERED AND TO REPORT ABNORMAL FINDINGS TO PHYSICIAN. SKILLED NURSE MAY PERFORM BLOOD GLUCOSE TEST NEEDED. SKILLED NURSE TO REPORT TO PHYSICIAN BLOOD GLUCOSE READINGS GREATER THAN 350OR LESS THAN 70 SKILLED NURSE TO INSTRUCT PATIENT ON IMPORTANCE OF HGBA1C MONITORING, KIDNEY FUNCTION TEST, EYE AND FOOT EXAMS. [code = DIABETES MANAGEMENT; SKILLED NURSE FOR INSTRUCTIONS OF DIABETIC CARE TO INCLUDE: DIET DIABETIC SKIN CARE, SIGNS AND SYMPTOMS OF HYPO/HYPERGLYCEMIA, PROPER ADMINISTRATION OF DIABETIC MEDICATION. SKILLED NURSE TO INSTRUCT ON DIABETIC FOOT CARE AND MONITOR FOR SKIN LESIONS ON LOWER EXTREMITIES. BLOOD GLUCOSE TESTING BEFORE MEALS AND AT BEDTIME. SKILLED NURSE TO ASSESS PATIENT/CAREGIVER ABILITY TO PERFORM AND RECORD BLOOD GLUCOSE TESTING ORDERED AND TO REPORT ABNORMAL FINDINGS TO PHYSICIAN. SKILLED NURSE MAY PERFORM BLOOD GLUCOSE TEST NEEDED. SKILLED NURSE TO REPORT TO PHYSICIAN BLOOD GLUCOSE READINGS GREATER THAN 350OR LESS THAN 70 SKILLED NURSE TO INSTRUCT PATIENT ON IMPORTANCE OF HGBA1C MONITORING, KIDNEY FUNCTION TEST, EYE AND FOOT EXAMS.] Future Scheduled Test SKILLED NU RSE TO ASSESS, EVALUATE, AND DEVELOP AN INDIVIDUALIZED PLAN OF CARE. AGENCY MAY ACCEPT ORDERS FROM CONSULTING PHYSICIANS SN TO OBSERVE/ASSESS RISK FOR FALLS AND INSTRUCT IN FALL PREVENTION, HOME SAFETY, MEDICATION MANAGEMENT, INFECTION PREVENTION, AND NUTRITION MANAGEMENT. SN MAY PERFORM O2 SATURATION LEVEL ON ADMISSION AND PRN TO ASSESS PATIENT, WITH NOTIFICATION TO THE PHYSICIAN IF SATURATION IS 90% IN THE ABSENCE OF MORE SPECIFIC PARAMETERS FROM THE PHYSICIAN. AGENCY MAY PERFORM A RESUMPTION OF CARE VISIT FOLLOWING ANY HOSPITAL ADMISSION. SKILLED NURSE TO ASSESS/EVALUATE CO-MORBID CONDITIONS AND ANY NEW CONDITIONS THAT PRESENT THEMSELVES DURING THIS EPISODE TO IDENTIFY CHANGES AND INTERVENE TO MINIMIZE COMPLICATIONS. [code = SKILLED NURSE TO ASSESS, EVALUATE, AND DEVELOP AN INDIVIDUALIZED PLAN OF CARE. AGENCY MAY ACCEPT ORDERS FROM CONSULTING PHYSICIANS SN TO OBSERVE/ASSESS RISK FOR FALLS AND INSTRUCT IN FALL PREVENTION, HOME SAFETY, MEDICATION MANAGEMENT, INFECTION PREVENTION, AND NUTRITION MANAGEMENT. SN MAY PERFORM O2 SATURATION LEVEL ON ADMISSION AND PRN TO ASSESS PATIENT, WITH NOTIFICATION TO THE PHYSICIAN IF SATURATION IS 90% IN THE ABSENCE OF MORE SPECIFIC PARAMETERS FROM THE PHYSICIAN. AGENCY MAY PERFORM A RESUMPTION OF CARE VISIT FOLLOWING ANY HOSPITAL ADMISSION. SKILLED NURSE TO ASSESS/EVALUATE CO-MORBID CONDITIONS AND ANY NEW CONDITIONS THAT PRESENT THEMSELVES DURING THIS EPISODE TO IDENTIFY CHANGES AND INTERVENE TO MINIMIZE COMPLICATIONS.] Future Scheduled Test PT/INR MON ITORING; SKILLED NURSE TO PERFORM PT/INR VIA VENIPUNCTURE OR COAGUCHECK SUNDAY 11/19, RESULTS TO PCP CALLIE VILLARREAL [code = PT/INR MONITORING; SKILLED NURSE TO PERFORM PT/INR VIA VENIPUNCTURE OR COAGUCHECK SUNDAY 11/19, RESULTS TO PCP CALLIE VILLARREAL] Future Scheduled Test PAIN MANAG EMENT; SKILLED NURSE TO OBSERVE, ASSESS, AND PROVIDE EDUCATION ON PAIN MANAGEMENT TECHNIQUES. [code = PAIN MANAGEMENT; SKILLED NURSE TO OBSERVE, ASSESS, AND PROVIDE EDUCATION ON PAIN MANAGEMENT TECHNIQUES.] Future Scheduled Test SN TO PERF ORM/TEACH CAREGIVER WOUND CARE TO 3 WOUNDS RT LOWER LEG DAILY: CLEANSE WITH WOUND WASH OR NORMAL SALINE, PAT DRY. APPLY TO RT MEDIAL WOUND XEROFORM, DCD, COVER WITH GAUZE BANDAGE. RT LATERAL WOUND ALSO CLEANSE WITH WOUND WASH OR NORMAL SALINE, PAT DRY, APPLY XEROFORM, DCD AND GAUZE WRAP SECURE WITH TAPE . RT LATERAL FOOT DIABETIC WOUND, CLEANSE WITH WOUND WASH OR NORMAL SALINE, PAT DRY, APPLY SANTYL, AQUACEL AG, DCD AND GAUZE WRAP SECURED WITH TAPE. TUBIGRIP APPLIED TO RT LEG DAILY, REMOVE AT BEDTIME. MAY APPLY SKIN BARRIER TO PERIWOUND AREA [code = SN TO PERFORM/TEACH CAREGIVER WOUND CARE TO 3 WOUNDS RT LOWER LEG DAILY: CLEANSE WITH WOUND WASH OR NORMAL SALINE, PAT DRY. APPLY TO RT MEDIAL WOUND XEROFORM, DCD, COVER WITH GAUZE BANDAGE. RT LATERAL WOUND ALSO CLEANSE WITH WOUND WASH OR NORMAL SALINE, PAT DRY, APPLY XEROFORM, DCD AND GAUZE WRAP SECURE WITH TAPE . RT LATERAL FOOT DIABETIC WOUND, CLEANSE WITH WOUND WASH OR NORMAL SALINE, PAT DRY, APPLY SANTYL, AQUACEL AG, DCD AND GAUZE WRAP SECURED WITH TAPE. TUBIGRIP APPLIED TO RT LEG DAILY, REMOVE AT BEDTIME. MAY APPLY SKIN BARRIER TO PERIWOUND AREA ] Future Scheduled Test RISK FOR H OSPITALIZATION; SKILLED NURSE TO INSTRUCT PATIENT/CAREGIVER ON RISK FOR HOSPITALIZATION, TEACH SIGNS AND SYMPTOMS THAT PUT PATIENT AT RISK, WHEN TO NOTIFY NURSE OF COMPLICATIONS/DECLINE, AND WHEN TO CALL 911. SKILLED NURSE TO INSTRUCT PATIENT/CAREGIVER ON: SIGNS AND SYMPTOMS TO BE ON ALERT FOR EARLY INTERVENTION, PRIOR TO NEEDING EMERGENCY SERVICES CALL [facility] NURSE TO KEEP COMMISSIONER PUBLIC WORKS SYMPTOM REPORT FOR VISIBLE REFERENCE NOTIFY SKILLED NURSE/PHYSICIAN FOR DECLINE IN STATUS WHEN AND HOW TO CALL HOME HEALTH AGENCY FACILITATE PHYSICIAN FOLLOW UP APPOINTMENT IDENTIFY SOCIOECONOMIC CONCERNS AND MAKE APPROPRIATE REFERRAL NEEDED [code = RISK FOR HOSPITALIZATION; SKILLED NURSE TO INSTRUCT PATIENT/CAREGIVER ON RISK FOR HOSPITALIZATION, TEACH SIGNS AND SYMPTOMS THAT PUT PATIENT AT RISK, WHEN TO NOTIFY NURSE OF COMPLICATIONS/DECLINE, AND WHEN TO CALL 911. SKILLED NURSE TO INSTRUCT PATIENT/CAREGIVER ON: SIGNS AND SYMPTOMS TO BE ON ALERT FOR EARLY INTERVENTION, PRIOR TO NEEDING EMERGENCY SERVICES CALL [facility] NURSE TO KEEP COMMISSIONER PUBLIC WORKS SYMPTOM REPORT FOR VISIBLE REFERENCE NOTIFY SKILLED NURSE/PHYSICIAN FOR DECLINE IN STATUS WHEN AND HOW TO CALL HOME HEALTH AGENCY FACILITATE PHYSICIAN FOLLOW UP APPOINTMENT IDENTIFY SOCIOECONOMIC CONCERNS AND MAKE APPROPRIATE REFERRAL NEEDED] Future Scheduled Test CARDIOVASC ULAR SYSTEM; SKILLED NURSE TO ASSESS AND TEACH RELATED TO ALTERED CARDIOVASCULAR STATUS TO MINIMIZE COMPLICATIONS AND REDUCE HOSPITALIZATION. [code = CARDIOVASCULAR SYSTEM; SKILLED NURSE TO ASSESS AND TEACH RELATED TO ALTERED CARDIOVASCULAR STATUS TO MINIMIZE COMPLICATIONS AND REDUCE HOSPITALIZATION.] Future Scheduled Test HEART FAIL URE; SKILLED NURSE TO ASSESS CARDIOPULMONARY SYSTEM TO IDENTIFY SIGNS OF DECOMPENSATION AND INTERVENE TO MINIMIZE THE SEVERITY OF FLUID OVERLOAD. ASSESS PATIENT ABILITY TO MONITOR AND RECORD DAILY WEIGHTS AND VITAL SIGNS, INCLUDING PULSE AND BLOOD PRESSURE; RECORD PATIENT REPORTED WEIGHT, OR WEIGH PATIENT NEEDED. REPORT INCREASED EDEMA OR WEIGHT GAIN OF >2 LBS IN 1 DAY OR >5 LBS IN 1 WEEK OR 5LBS OR MORE OVER TARGET WEIGHT. MAY MEASURE ABDOMINAL GIRTH IF UNABLE TO WEIGH. SCALES AND BP MONITOR TO BE PROVIDED IF NEEDED. [code = HEART FAILURE; SKILLED NURSE TO ASSESS CARDIOPULMONARY SYSTEM TO IDENTIFY SIGNS OF DECOMPENSATION AND INTERVENE TO MINIMIZE THE SEVERITY OF FLUID OVERLOAD. ASSESS PATIENT ABILITY TO MONITOR AND RECORD DAILY WEIGHTS AND VITAL SIGNS, INCLUDING PULSE AND BLOOD PRESSURE; RECORD PATIENT REPORTED WEIGHT, OR WEIGH PATIENT NEEDED. REPORT INCREASED EDEMA OR WEIGHT GAIN OF >2 LBS IN 1 DAY OR >5 LBS IN 1 WEEK OR 5LBS OR MORE OVER TARGET WEIGHT. MAY MEASURE ABDOMINAL GIRTH IF UNABLE TO WEIGH. SCALES AND BP MONITOR TO BE PROVIDED IF NEEDED.] Future Scheduled Test ATRIAL FIB RILLATION MANAGEMENT; SKILLED NURSE TO ASSESS/TEACH WARNING SIGNS AND SYMPTOMS TO AVOID HOSPITALIZATION. [code = ATRIAL FIBRILLATION MANAGEMENT; SKILLED NURSE TO ASSESS/TEACH WARNING SIGNS AND SYMPTOMS TO AVOID HOSPITALIZATION.] Future Scheduled Test AGENCY MAY PERFORM A RESUMPTION OF CARE VISIT FOLLOWING ANY HOSPITAL ADMISSION. OCCUPATIONAL THERAPY TO EVALUATE, ASSESS, AND MONITOR, PROVIDE SKILLED THERAPEUTIC INTERVENTION, ACTIVITY, EDUCATION, AND TRAINING TO ADDRESS; TOILETING (OT) DRESSING (OT) MODIFIED SERGE INDEX (OT) MEAL PREPARATION AND CLEANUP (OT) EQUILIBRIUM REACTIONS/BALANCE (OT) ENERGY CONSERVATION/ACTIVITY DEMAND (OT) OCCUPATIONAL THERAPY TO ASSESS AND RECORD PATIENT REPORTED WEIGHT AND NOTIFY CM / CITY JAILER FOR MD NOTIFICATION FOR SIGNS AND SYMPTOMS OF EXACERBATION (2LB WEIGHT GAIN IN 1 DAY, 5LBS IN A WEEK OR 5 LBS OVER BASELINE); OCCUPATIONAL THERAPY TO PERFORM/TEACH PATIENT /CAREGIVER WOUND CARE TO RLE CHANGE DRESSING PRN FOR NURSING. IRRIGATE/CLEANSE WITH APPLY DRESSING INDICATED PERFORM/TEACH CAREGIVER WOUND CARE TO 3 WOUNDS RT LOWER LEG DAILY INDICATED BY NURSING CLEANSE WITH WOUND WASH OR NORMAL SALINE, PAT DRY. APPLY TO RT MEDIAL WOUND XEROFORM, DCD, COVER WITH GAUZE BANDAGE. RT LATERAL WOUND ALSO CLEANSE WITH WOUND WASH OR NORMAL SALINE, PAT DRY, APPLY XEROFORM, DCD AND GAUZE WRAP SECURE WITH TAPE . RT LATERAL FOOT DIABETIC WOUND, CLEANSE WITH WOUND WASH OR NORMAL SALINE, PAT DRY, APPLY SANTYL, AQUACEL AG, DCD AND GAUZE WRAP SECURED WITH TAPE. TUBIGRIP APPLIED TO RT LEG DAILY, REMOVE AT BEDTIME. MAY APPLY SKIN BARRIER TO PERIWOUND AREA FALL REDUCTION (OT) [code = AGENCY MAY PERFORM A RESUMPTION OF CARE VISIT FOLLOWING ANY HOSPITAL ADMISSION. OCCUPATIONAL THERAPY TO EVALUATE, ASSESS, AND MONITOR, PROVIDE SKILLED THERAPEUTIC INTERVENTION, ACTIVITY, EDUCATION, AND TRAINING TO ADDRESS; TOILETING (OT) DRESSING (OT) MODIFIED SERGE INDEX (OT) MEAL PREPARATION AND CLEANUP (OT) EQUILIBRIUM REACTIONS/BALANCE (OT) ENERGY CONSERVATION/ACTIVITY DEMAND (OT) OCCUPATIONAL THERAPY TO ASSESS AND RECORD PATIENT REPORTED WEIGHT AND NOTIFY CM / CITY JAILER FOR MD NOTIFICATION FOR SIGNS AND SYMPTOMS OF EXACERBATION (2LB WEIGHT GAIN IN 1 DAY, 5LBS IN A WEEK OR 5 LBS OVER BASELINE); OCCUPATIONAL THERAPY TO PERFORM/TEACH PATIENT /CAREGIVER WOUND CARE TO RLE CHANGE DRESSING PRN FOR NURSING. IRRIGATE/CLEANSE WITH APPLY DRESSING INDICATED PERFORM/TEACH CAREGIVER WOUND CARE TO 3 WOUNDS RT LOWER LEG DAILY INDICATED BY NURSING CLEANSE WITH WOUND WASH OR NORMAL SALINE, PAT DRY. APPLY TO RT MEDIAL WOUND XEROFORM, DCD, COVER WITH GAUZE BANDAGE. RT LATERAL WOUND ALSO CLEANSE WITH WOUND WASH OR NORMAL SALINE, PAT DRY, APPLY XEROFORM, DCD AND GAUZE WRAP SECURE WITH TAPE . RT LATERAL FOOT DIABETIC WOUND, CLEANSE WITH WOUND WASH OR NORMAL SALINE, PAT DRY, APPLY SANTYL, AQUACEL AG, DCD AND GAUZE WRAP SECURED WITH TAPE. TUBIGRIP APPLIED TO RT LEG DAILY, REMOVE AT BEDTIME. MAY APPLY SKIN BARRIER TO PERIWOUND AREA FALL REDUCTION (OT)] Future Scheduled Test AGENCY MAY PERFORM A RESUMPTION OF CARE VISIT FOLLOWING ANY HOSPITAL ADMISSION. PHYSICAL THERAPY TO EVALUATE, ASSESS AND MONITOR, PROVIDE SKILLED THERAPEUTIC INTERVENTION, ACTIVITY, EDUCATION, AND TRAINING TO ADDRESS: TRANSFER TRAINING (PT) GAIT TRAINING (PT) NEUROMUSCULAR RE-EDUCATION / BALANCE RETRAINING (PT) THERAPEUTIC EXERCISES (PT) CAR TRANSFER TRAINING - PT ENERGY CONSERVATION (PT) PAIN MANAGEMENT (PT) DIABETES MANAGEMENT (PT) IDENTIFY FALL RISK FACTORS AND ESTABLISH HOME EXERCISE PROGRAM TO MINIMIZE FALL RISK. MAY TEACH THE PATIENT FLOOR RECOVERY WHEN CLINICALLY APPROPRIATE (PT) [code = AGENCY MAY PERFORM A RESUMPTION OF CARE VISIT FOLLOWING ANY HOSPITAL ADMISSION. PHYSICAL THERAPY TO EVALUATE, ASSESS AND MONITOR, PROVIDE SKILLED THERAPEUTIC INTERVENTION, ACTIVITY, EDUCATION, AND TRAINING TO ADDRESS: TRANSFER TRAINING (PT) GAIT TRAINING (PT) NEUROMUSCULAR RE-EDUCATION / BALANCE RETRAINING (PT) THERAPEUTIC EXERCISES (PT) CAR TRANSFER TRAINING - PT ENERGY CONSERVATION (PT) PAIN MANAGEMENT (PT) DIABETES MANAGEMENT (PT) IDENTIFY FALL RISK FACTORS AND ESTABLISH HOME EXERCISE PROGRAM TO MINIMIZE FALL RISK. MAY TEACH THE PATIENT FLOOR RECOVERY WHEN CLINICALLY APPROPRIATE (PT)] Goal 2021-11-26 Patient Goal - WOUND HEALING Goal Provider Goal - PATIENT/CAREGIVER TO VERBALIZE, AND CONSISTENTLY DEMONSTRATE EFFECTIVE, SAFE MANAGEMENT OF MEDICATION INCLUDING KNOWLEDGE OF EFFECTIVENESS, POTENTIAL SIDE EFFECTS AND DRUG REACTIONS AND WHEN TO CONTACT THE APPROPRIATE CARE PROVIDER. PATIENT/CAREGIVER WILL BE ABLE TO VERBALIZE UNDERSTANDING OF MEDICATION REGIMEN AND ACCURATELY TAKE MEDICATIONS PRESCRIBED WITHOUT ADVERSE EFFECTS BY 12/12 Goal Provider Goal - INEFFECTIVE ANTICOAGULATION THERAPY WILL BE IDENTIFIED AND PROMPTLY REPORTED TO THE PHYSICIAN. PATIENT / CAREGIVER WILL VERBALIZE UNDERSTANDING OF MEASURES TO MAINTAIN EFFECTIVE ANTICOAGULATION THERAPY Goal Provider Goal - PATIENT/CAREGIVER ABLE TO IDENTIFY FALL RISK FACTORS AND IMPLEMENT STRATEGIES TO MINIMIZE FALL RISK. PATIENT/CAREGIVER WILL VERBALIZE/DEMONSTRATE AN ABILITY TO ADHERE TO FALL REDUCTION SELF MANAGEMENT AND LIFE-STYLE CHANGES AT DISCHARGE. PERSONAL GOAL STATED BY PATIENT WILL BE MET BY END OF EPISODE Goal Provider Goal - PATIENT / CAREGIVER WILL VERBALIZE / DEMONSTRATE AN ABILITY TO ADHERE TO SELF-MANAGEMENT OF DIABETES MANAGEMENT BY 11/30 Goal Provider Goal - A PLAN OF CARE WILL BE ESTABLISHED THAT MEETS THE PATIENTS NEEDS. PATIENT WILL DEMONSTRATE OXYGEN SATURATION WITHIN NORMAL LIMITS OR PATIENTS OPTIMAL LEVEL ESTABLISHED BY THE PHYSICIAN THROUGHOUT CARE. CHANGES TO CO-MORBID CONDITIONS AND ANY NEW CONDITIONS WILL BE IDENTIFIED AND REPORTED TO THE PHYSICIAN. Goal Provider Goal - PATIENT PT/INR WILL BE MAINTAINED AT A THERAPEUTIC LEVEL IDENTIFIED BY THE PHYSICIAN THROUGHOUT CARE. Goal Provider Goal - PATIENT / CAREGIVER WILL VERBALIZE / DEMONSTRATE UNDERSTANDING OF PAIN CONTROL MEASURES BY END OF EPISODE Goal Provider Goal - PATIENT / CAREGIVER WILL VERBALIZE UNDERSTANDING OF DIABETIC ULCER - INCLUDING BUT NOT LIMITED TO DEFINITION, SIGNS AND SYMPTOMS OF COMPLICATIONS AND PRESCRIBED TREATMENT REGIME Goal Provider Goal - PATIENT/CAREGIVER WILL VERBALIZE UNDERSTANDING OF SIGNS AND SYMPTOMS THAT PUT THE PATIENT AT RISK FOR HOSPITALIZATION, WHEN TO NOTIFY SN OF COMPLICATIONS/DECLINE AND WHEN TO CALL 911. Goal Provider Goal - PATIENT / CAREGIVER WILL VERBALIZE/DEMONSTRATE UNDERSTANDING OF MEASURES TO MANAGE ALTERED CARDIOVASCULAR STATUS BY END OF EPISODE Goal Provider Goal - PATIENT / CAREGIVER WILL VERBALIZE/DEMONSTRATE AN ABILITY TO ADHERE TO SELF-MANAGEMENT OF HF TO MINIMIZE COMPLICATIONS AND AVOID HOSPITALIZATION BY END OF EPISODE. Goal Provider Goal - PATIENT / CAREGIVER WILL VERBALIZE/DEMONSTRATE AN ABILITY TO ADHERE TO SELF-MANAGEMENT OF ATRIAL FIBRILLATION TO MINIMIZE COMPLICATIONS AND AVOID HOSPITALIZATION BY END OF EPISODE. Goal Provider Goal - OT LTG: PATIENT WILL DEMONSTRATE IMPROVED ABILITY TO PERFORM BATHING/SHOWERING UTILIZING ENERGY CONSERVATION AND WORK SIMPLIFICATION TECHNIQUES FROM UNABLE TO MIN ASSIST WITHIN 8 WEEKS. OT LTG: PATIENT WILL DEMONSTRATE IMPROVED ABILITY TO PERFORM BATH/SHOWER TRANSFER FROM UNABLE TO MODIFIED INDEPENDENCE WITH NEW TUBENCH WITHIN 6 WEEKS. OT LTG: PATIENT WILL DEMONSTRATE IMPROVED ABILITY TO PERFORM TOILET TRANSFER FROM MIN A / TO INDEPENDENT WITH WALKER WITHIN 5 WEEKS OT LTG: PATIENT WILL DEMONSTRATE IMPROVED ABILITY TO PERFORM LOWER BODY DRESSING INCLUDING ITEM RETRIEVAL FROM MIN A TO INDEPENDENCE UTILIZING ADAPTIVE EQUIPMENT NEEDED WITHIN 6 WEEKS OT LTG: PATIENT WILL DEMONSTRATE IMPROVED INDEPENDENCE WITH ACTIVITIES OF DAILY LIVING (ADL) SKILLS EVIDENCED BY AN IMPROVEMENT IN MODIFIED SERGE INDEX SCORE FROM 71/100 TO 88/100 INDICATING DECREASED DEPENDENCY ON CAREGIVER ASSISTANCE WITHIN 8 WEEKS. OT LTG: PATIENT WILL DEMONSTRATE THE ABILITY TO COMPLETE MEAL PREPARATION AND CLEANUP FROM UNABLE TO MODIFIED INDEPENDENCE UTILIZING ADAPTIVE EQUIPMENT NEEDED IN INCORPORATING ENERGY CONSERVATION AND WORK SIMPLIFICATION TECHNIQUES INTO TASK WITHIN 8 WEEKS PATIENT/CAREGIVER WILL BE ABLE TO IMPLEMENT OCCUPATIONAL THERAPY EDUCATION RECOMMENDATIONS SPECIFIC TO FALL REDUCTION FOR IMPROVED ADL/IADL COMPLETION AND HOME SAFETY WITH INCREASED FUNCTIONAL REACH FROM 0 TO 7 INCHES WITHIN 8 WEEKS. OT GOAL: PATIENTS WEIGHT WILL REMAIN WELL CONTROLLED THROUGHOUT EPISODE OF CARE. PATIENT / CAREGIVER WILL VERBALIZE/DEMONSTRATE THE ABILITY TO PERFORM WOUND CARE. WOUND STATUS WILL IMPROVE EVIDENCED BY DECREASE IN WOUND SIZE, DRAINAGE, ABSENCE OF INFECTION, AND DECREASED PAIN BY DISCHARGE. Goal Provider Goal - PT STG: PATIENT WILL DEMONSTRATE IMPROVED TRANSFERS FROM. MIN A TO INDEPENDENT WITHIN 5 WEEKS. PT LTG: PATIENT WILL DEMONSTRATE IMPROVED AMBULATION FROM MIN A TO INDEPENDENT WITH RW WITHIN 9 WEEKS. PT STG: PATIENT WILL DEMONSTRATE INDEPENDENCE IN HOME EXERCISE PROGRAM OF STRENGTHENING EXERCISES BALANCE EXERCISES AND PROGRESSIVE AMBULATION PROGRAM TO ALLOW PATIENT TO CARRY OVER GAINS MADE DURING SKILLED HOME PHYSICAL THERAPY WITHIN 5 WEEKS. PT LTG: PATIENT WILL DEMONSTRATE INCREASED STRENGTH OF BILAT LES FROM 3+ /5 TO 4/5 WITHIN 9 WEEKS. IN ORDER TO RETURN TO INDEPENDENT COMMUNITY MOBILITY SKILLS. PT LTG: PATIENT / CAREGIVER WILL DEMONSTRATE UNDERSTANDING OF ENERGY CONSERVATION MEASURES, EVIDENCED BY INCREASED ACTIVITY TOLERANCE INCREASING FROM ASSISTED HOME MOBILITY TO INDEPENDENT COMMUNITY MOBILITY SKILLS WITHIN 9 WEEKS. PT LTG: PATIENT WILL DEMONSTRATE REDUCED FALL RISK EVIDENCED BY TUG TEST (CUT SCORE >11 SECONDS INDICATES INCREASED FALL RISK) IMPROVING FROM UNABLE TO 11 WITHIN 9 WEEKS. PT STG: PATIENT WILL BE ABLE TO PARTICIPATE IN CAR TRANSFERS TO ATTEND FOLLOW-UP MD APPOINTMENTS IMPROVIMG FROM MIN A TO INDEPENDENT WITHIN 5 WEEKS. PT GOAL: PATIENT/CAREGIVER WILL VERBALIZE UNDERSTANDING OF PAIN MANAGEMENT BY DISCHARGE. PATIENTS BLOOD SUGAR WILL REMAIN WELL CONTROLLED THROUGHOUT EPISODE OF CARE AND PATIENT WILL NOT HAVE ANY SIGNS OF SKIN BREAKDOWN OR COMPLICATIONS. PATIENT/CAREGIVER WILL DEMONSTRATE ADHERENCE TO FALL REDUCTION SELF MANAGEMENT TO MINIMIZE FALL RISK BY DISCHARGE. Reason for Visit INDEPENDENT IN THE HOME Encounters Start Date/Time End Date/Time Encounter Type Admission Type Attending [facility] Care Department Encounter ID Discharge Date Discharge Status Discharge Condition Discharge Reason Percent Goals Met 2021-11-18 00:00:00 2021-11-26 00:00:00 Outpatient NEW ADMISSION LILO JAY [facility] [id number] 2021-11-26 00:00:00 DISCHARGE TO HOME OR SELF CARE INDEPENDEN T IN THE HOME HH OR PAL- GOALS MET 37.50
--- OUTSIDE RECORDS SUMMARY | 2024-06-24 02:28 | XMS_ITS | Clinical Summary ---
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 TS Active 11-18 00:00: 00 PERSONAL HISTORY OF COVID-19 Active 09-09 00:00: 00 PERSONAL HISTORY OF URINARY (TRACT) INFECTIONS Active 09-09 00:00: 00 PRESENCE OF PROSTHETIC HEART VALVE Active 09-09 00:00: 00 PERSONAL HISTORY OF OTHER VENOUS THROMBOSIS AND EMBOLISM Active 07-14 00:00: 00 PRESENCE OF ARTIFICIAL KNEE JOINT, BILATERAL Active 07-14 00:00: 00 [facility]FP (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 OF INSULIN Active 11-18 00:00: [...] 100 mg tablet 11-18 00:00: 00 Yes [id number] FOR GOUT 100 mg DAILY 100 mg DAILY (route: oral) Med Classific ation: Gout and Hyperuric emia Therapy Aspirin Low Dose 81 mg tablet,alvina yed release 11-18 00:00: 00 Yes [id number] CARDIAC HEALTH 81 mg DAILY 81 mg DAILY (route: oral) Med Classific ation: Hematolog ical Agents Basaglar KwikPen U-100 Insulin 100 unit/mL (3 mL) subcutaneou s 11-18 00:00: 00 Yes [id number] TREATS DIABETES 10 unit BEDTIME 10 unit BEDTIME (route: subcutaneo us) Med Classific ation: Endocrine cephalexin 250 mg capsule 11-18 00:00: 00 Yes [id number] TREATS ENDOCARDITI S 250 mg EVERY 12 HOURS 250 mg EVERY 12 HOURS (route: oral) Med Classific ation: Anti-Infe ctive Agents Colace 100 mg capsule 11-18 00:00: 00 Yes [id number] STOOL SOFTNER 100 mg 2 TIMES DAILY 100 mg 2 TIMES DAILY (route: oral) Med Classific ation: Gastroint estinal Therapy Agents Milk of Magnesia 400 mg/5 mL oral suspension 11-18 00:00: 00 Yes [id number] TREATS CONSTIPATIO N 30 mL DAILY 30 mL DAILY (route: oral) Med Classific ation: Gastroint estinal Therapy Agents Probiotic 10 billion cell capsule 11-18 00:00: 00 Yes [id number] SUPPLEMENT 1 capsule DAILY 1 capsule DAILY (route: oral) Med Classific ation: Gastroint estinal Therapy Agents torsemide 20 mg tablet 11-18 00:00: 00 Yes [id number] DIURETIC 40 mg DAILY 40 mg DAILY (route: oral) Med Classific ation: Cardiovas cular Therapy Agents Tylenol Arthritis Pain 650 mg tablet,exte nded release 11-18 00:00: 00 Yes [id number] FOR PAIN 650 mg EVERY 4 HOURS 650 mg EVERY 4 HOURS (route: oral) Med Classific ation: Analgesic , Anti-infl ammatory or Antipyret ic warfarin 6 mg tablet 11-18 00:00: 00 Yes [id number] BLOOD THINNER 6 mg DAILY 6 mg DAILY (route: oral) Med Classific ation: Hematolog ical Agents Zocor 20 mg tablet 11-18 00:00: 00 Yes [id number] TREATS HIGH CHOLESTEROL 40 mg BEDTIME 40 mg BEDTIME (route: oral) Med Classific ation: Cardiovas cular Therapy Agents insulin lispro (U-100) 100 unit/mL subcutaneou s pen 11-18 00:00: 00 Yes [id number] TREATS DIABETES 2 unit NEEDED 2 unit NEEDED (route: subcutaneo ) Med Classific ation: Endocrine insulin lispro (U-100) 100 unit/mL subcutaneou s pen 11-18 00:00: 00 Yes [id number] TREATS DIABETES 4 unit DIRECTED 4 unit DIRECTED (route: subcutaneo us) Med Classific ation: Endocrine insulin lispro (U-100) 100 unit/mL subcutaneou s pen 11-18 00:00: 00 Yes [id number] TREATS DIABETES 6 unit DIRECTED 6 unit DIRECTED (route: subcutaneo us) Med Classific ation: Endocrine insulin lispro (U-100) 100 unit/mL subcutaneou s pen 11-18 00:00: 00 Yes [id number] TREATS DIABETES 8 unit DIRECTED 8 unit DIRECTED (route: subcutaneo us) Med Classific ation: Endocrine insulin lispro (U-100) 100 unit/mL subcutaneou s pen 11-18 00:00: 00 Yes [id number] TREATS DIABETES 10 unit DIRECTED 10 unit [...] EMERGENCY SERVICES CALL [facility] NURSE TO KEEP CENTRAL SUPPLY ASSISTANT SYMPTOM REPORT FOR VISIBLE REFERENCE NOTIFY SKILLED [...] EMERGENCY SERVICES CALL [facility] NURSE TO KEEP CENTRAL SUPPLY ASSISTANT SYMPTOM REPORT FOR VISIBLE REFERENCE NOTIFY SKILLED [...] PATIENT REPORTED WEIGHT AND NOTIFY CM / EXTERIOR WORK HELPER FOR MD NOTIFICATION FOR SIGNS AND SYMPTOMS [...] PATIENT REPORTED WEIGHT AND NOTIFY CM / EXTERIOR WORK HELPER FOR MD NOTIFICATION FOR SIGNS AND SYMPTOMS [...] End Date/Time Encounter Type Admission Type Attending [facility] Care Department Encounter ID Discharge Date Discharge Status Discharge Condition Discharge Reason Percent Goals Met 2021-11-18 00:00:00 2021-11-26 00:00:00 Outpatient NEW ADMISSION LILO JAY [facility] [id number] 2021-11-26 00:00:00 DISCHARGE TO HOME OR SELF CARE INDEPENDEN T IN THE HOME HH OR PAL- GOALS MET 37.50
--- OUTSIDE RECORDS SUMMARY | 2024-06-24 02:28 | XMS_ITS | Clinical Summary ---
Author Organization Unknown Care Team Providers Care Cuff Setter Overlock Name Role Phone WANDA OLMOS, [place] Unavailable Unavailable MOISE RN, AARTI Unavailable Unavailable CEDRICK OT, DEEJAY Unavailable Unavailabl ileana MESSINA OT, THERAPY TELECOMMUNICATION TOWER TECHNICIAN, DANDY Unavailabl e Unavailable LENIN PT, LEONOR Unavailable Unavailable CANDIE LOREDO, GISELA Unavailable Unavailable SHARONDA SUPPLY REQUIREMENTS OFFICER, ENZO Unavailable Unavailable Payers Payer Name Policy Type Policy Number Effective Date Expira tion Date MEDIC[place] - [place] [id number] [facility] [id number] Problems Condition Name Condition Details Condition Category Status Onset Date Resolution Date Last Treatment Date Treating Clinician Comments PRESSURE ULCER OF LEFT BUTTOCK, STAGE 2 Active 6-20 00:00: 00 PAROXYSMAL ATRIAL FIBRILLATION Active 08-29 00:00: 00 HYPERLIPIDEM IA, UNSPECIFIED Active 08-29 00:00: 00 ATHSCL HEART DISEASE OF [place] CORONARY ARTERY W/O ANG PCTRS Active 08-29 00:00: 00 CHRONIC TOTAL OCCLUSION OF CORONARY ARTERY Active 02-25 00:00: 00 DEFICIENCY OF OTHER SPECIFIED B GROUP VITAMINS Active - 00:00: 00 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 CHR KDNY Active 2-16 00:00: 00 CHRONIC SYSTOLIC (CONGESTIVE) HEART FAILURE Active -15 00:00: 00 TYPE 2 DIABETES MELLITUS W DIABETIC CHRONIC KIDNEY DISEASE Active -16 00:00: 00 CHRONIC KIDNEY DISEASE, STAGE 4 (SEVERE) Active -16 00:00: 00 ANEMIA IN CHRONIC KIDNEY DISEASE Active -16 00:00: 00 TYPE 2 DIABETES MELLITUS WITH DIABETIC NEUROPATHY, UNSP Active -16 00:00: 00 TYPE 2 DIABETES MELLITUS WITH OTHER SPECIFIED COMPLICATION Active 15 00:00: 00 OSTEOMYELITI S, UNSPECIFIED Active 15 00:00: 00 NONRHEUMATIC MITRAL (VALVE) STENOSIS Active 02-25 00:00: 00 LEFT BUNDLE-BRANC H BLOCK, UNSPECIFIED Active 216 00:00: 00 GOUT, UNSPECIFIED Active 2 00:00: 00 NICOTINE DEPENDENCE, CIGARETTES, UNCOMPLICATE D Active 02-25 00:00: 00 CELLULITIS OF RIGHT LOWER LIMB Active 8 00:00: 00 CELLULITIS OF BUTTOCK Active 02-25 00:00: 00 TUBULO-INTER STITIAL NEPHRITIS, NOT SPCF ACUTE OR CHRONIC Active 02-25 00:00: 00 OBESITY, UNSPECIFIED Active 02-25 00:00: 00 ACIDOSIS, UNSPECIFIED Active 02-25 00:00: 00 PERSONAL HISTORY OF COVID-19 Active 08-29 00:00: 00 PRESENCE OF ARTIFICIAL KNEE JOINT, BILATERAL Active 02-25 00:00: 00 PRESENCE OF PROSTHETIC HEART VALVE Active 08-29 00:00: 00 LONGTERM (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 Active 02-25 00:00: 00 Allergies, Adverse Reactions, Alerts Allergy Name Allergy Type Status Severity Reaction(s) Onset Date Inactive Date Treating Clinician Comments NKA Propensity to adverse reactions Active 2022-06 16:15:0 7 Medications Ordered Medication Name Filled Medication Name Start Date Stop Date Current Medication? Ordering Clinician Indication Dosage Frequency Signature (SIG) Comments Components acetaminoph en 325 mg capsule 2021-07 00:00: 00 Yes [id number] 2 capsule DAILY 2 capsule DAILY (route: oral) Med Classific ation: Analgesic , Anti-infl ammatory or Antipyret ic allopurinol 300 mg tablet 2021-07 00:00: 00 08-29 23:59 :00 No [id number] 1 tablet DAILY 1 tablet DAILY (route: oral) Med Classific ation: Gout and Hyperuric emia Therapy doxycycline hyclate 100 mg capsule 2021-07 00:00: 00 Yes [id number] 1 capsule 2 TIMES DAILY 1 capsule 2 TIMES DAILY (route: oral) Med Classific ation: Anti-Infe ctive Agents gabapentin 100 mg capsule 2021-07 00:00: 00 10-22 23:59 :00 No [id number] 1 capsule 2 TIMES DAILY 1 capsule 2 TIMES DAILY (route: oral) Med Classific ation: Central Nervous System Agents multivitami n tablet 2021-07 00:00: 00 Yes [id number] 1 tablet DAILY 1 tablet DAILY (route: oral) Med Classific ation: Electroly te Balance-N utritiona l Products pantoprazol e 40 mg tablet,alvina yed release 2021-07 00:00: 00 Yes [id number] 1 tablet DAILY 1 tablet DAILY (route: oral) Med Classific ation: Gastroint estinal Therapy Agents Santyl 250 unit/gram topical ointment 2021-07 00:00: 00 08-29 23:59 :00 No [id number] 1 inch DAILY 1 inch DAILY (route: topical) Med Classific ation: Dermatolo gical simvastatin 20 mg tablet 2021-07 00:00: 00 Yes [id number] 1 tablet DAILY 1 tablet DAILY (route: oral) Med Classific ation: Cardiovas cular Therapy Agents warfarin 4 mg tablet 2021-07 00:00: 00 07-09 23:59 :00 No [id number] 1 tablet DAILY 1 tablet DAILY (route: oral) Med Classific ation: Hematolog ical Agents warfarin 5 mg tablet 2021-07 00:00: 00 07-10 23:59 :00 No [id number] 1 tablet DAILY 1 tablet DAILY (route: oral) Med Classific ation: Hematolog ical Agents warfarin 5 mg tablet 1- 00:00: 00 07-17 23:59 :00 No [id number] 5 mg DAILY 5 mg DAILY (route: oral) Med Classific ation: Hematolog ical Agents warfarin 5 mg tablet 1-05 00:00: 00 07-25 23:59 :00 No [id number] Per instruc tions DAILY Per instructio ns DAILY (route: oral) Med Classific ation: Hematolog ical Agents warfarin 5 mg tablet 1-13 00:00: 00 08-01 23:59 :00 No [id number] 5 mg DAILY 5 mg DAILY (route: oral) Med Classific ation: Hematolog ical Agents warfarin 5 mg tablet 1-19 00:00: 00 08-07 23:59 :00 No [id number] Per instruc tions DAILY Per instructio ns DAILY (route: oral) Med Classific ation: Hematolog ical Agents Jantoven 5 mg tablet 1-26 00:00: 00 08-15 23:59 :00 No [id number] 1 tablet DAILY 1 tablet DAILY (route: oral) Med Classific ation: Hematolog ical Agents warfarin 5 mg tablet 2-02 00:00: 00 08-22 23:59 :00 No [id number] Per instruc tions DAILY Per instructio ns DAILY (route: oral) Med Classific ation: Hematolog ical Agents warfarin 5 mg tablet 2-09 00:00: 00 09-05 23:59 :00 No [id number] Per instruc tions DAILY Per instructio ns DAILY (route: oral) Med Classific ation: Hematolog ical Agents metoprolol succinate ER 50 mg tablet,exte nded release 24 hr 2-21 00:00: 00 Yes [id number] 3 tablet DAILY 3 tablet DAILY (route: oral) Med Classific ation: Cardiovas cular Therapy Agents warfarin 5 mg tablet 2-23 00:00: 00 09-19 23:59 :00 No [id number] 1 tablet DAILY 1 tablet DAILY (route: oral) Med Classific ation: Hematolog ical Agents warfarin 5 mg tablet 0 3-16 00:00: 00 10-10 23:59 :00 No [id number] Per instruc tions DAILY Per instructio ns DAILY (route: oral) Med Classific ation: Hematolog ical Agents warfarin 5 mg tablet 3-30 00:00: 00 10-17 23:59 :00 No [id number] Per instruc tions DAILY Per instructio ns DAILY (route: oral) Med Classific ation: Hematolog ical Agents amoxicillin 875 mg-potassiu m clavulanate 125 mg tablet 4-10 00:00: 00 11-30 23:59 :00 No [id number] 1 tablet 2 TIMES DAILY 1 tablet 2 TIMES DAILY (route: oral) Med Classific ation: Anti-Infe ctive Agents cyanocobala min (vit B-12) 1,000 mcg tablet 10-22 00:00: 00 Yes [id number] 1 tablet DAILY 1 tablet DAILY (route: oral) Med Classific ation: Electroly te Balance-N utritiona l Products gabapentin 100 mg capsule 10-22 00:00: 00 Yes [id number] 2 capsule 2 TIMES DAILY 2 capsule 2 TIMES DAILY (route: oral) Med Classific ation: Central Nervous System Agents warfarin 5 mg tablet 10-22 00:00: 00 11-05 18:31 :00 No [id number] Per instruc tions DAILY Per instructio ns DAILY (route: oral) Med Classific ation: Hematolog ical Agents warfarin 5 mg tablet 11-05 00:00: 00 11-12 23:59 :00 No [id number] Per instruc tions DAILY Per instructio ns DAILY (route: oral) Med Classific ation: Hematolog ical Agents warfarin 5 mg tablet 11-12 00:00: 00 11-18 23:59 :00 No [id number] Per instruc tions DAILY Per instructio ns DAILY (route: oral) Med Classific ation: Hematolog ical Agents warfarin 5 mg tablet 11-19 00:00: 00 11-24 23:59 :00 No [id number] Per instruc tions DIRECTED Per instructio ns DIRECTED (route: oral) Med Classific ation: Hematolog ical Agents warfarin 5 mg tablet 12-10 00:00: 12-16 23:59 :00 No [id number] Per instruc tions DAILY Per instructio ns DAILY (route: oral) Med Classific ation: Hematolog ical Agents warfarin 5 mg tablet 06 00:00: 00 12-23 23:59 :00 No [id number] Per instruc tions DAILY Per instructio ns DAILY (route: oral) Med Classific ation: Hematolog ical Agents warfarin 5 mg tablet 6-14 00:00: 00 12-30 23:59 :00 No [id number] Per instruc tions DAILY Per instructio ns DAILY (route: oral) Med Classific ation: Hematolog ical Agents warfarin 5 mg tablet 6- 00:00: 00 01-07 00:00 :00 No [id number] 1 tablet DAILY 1 tablet DAILY (route: oral) Med Classific ation: Hematolog ical Agents warfarin 5 mg tablet 01-07 00:00: 00 01-14 23:59 :00 No [id number] Per instruc tions DAILY Per instructio ns DAILY (route: oral) Med Classific ation: Hematolog ical Agents warfarin 5 mg tablet 7-11 00:00: 00 01-27 23:59 :00 No [id number] Per instruc tions DAILY Per instructio ns DAILY (route: oral) Med Classific ation: Hematolog ical Agents warfarin 5 mg tablet 7-18 00:00: 00 02-04 23:59 :00 No [id number] Per instruc tions DAILY Per instructio ns DAILY (route: oral) Med Classific ation: Hematolog ical Agents warfarin 5 mg tablet -25 00:00: 00 02-11 23:59 :00 No [id number] 1.5 tablet DAILY 1.5 tablet DAILY (route: oral) Med Classific ation: Hematolog ical Agents warfarin 5 mg tablet 8- 00:00: 00 02-18 23:59 :00 No [id number] Per instruc tions DAILY Per instructio ns DAILY (route: oral) Med Classific ation: Hematolog ical Agents Antifungal (miconazole ) 2 % topical cream 02-19 00:00: 00 Yes [id number] Per instruc tions 2 TIMES DAILY Per instructio ns 2 TIMES DAILY (route: topical) Med Classific ation: Dermatolo gical Augmentin 500 mg-125 mg tablet 02-17 00:00: 00 02-21 23:59 :00 No [id number] 1 tablet 2 TIMES DAILY 1 tablet 2 TIMES DAILY (route: oral) Med Classific ation: Anti-Infe ctive Agents warfarin 5 mg tablet 03-11 00:00: 00 03-12 23:59 :00 No [id number] 1.5 tablet DAILY 1.5 tablet DAILY (route: oral) Med Classific ation: Hematolog ical Agents warfarin 5 mg tablet 03-10 00:00: 00 03-10 23:59 :00 No [id number] 1 tablet DAILY 1 tablet DAILY (route: oral) Med Classific ation: Hematolog ical Agents warfarin 5 mg tablet 03-13 00:00: 00 03-18 23:59 :00 No [id number] Per instruc tions DAILY Per instructio ns DAILY (route: oral) Med Classific ation: Hematolog ical Agents warfarin 5 mg tablet 03-18 00:00: 00 03-24 23:59 :00 No [id number] Per instruc tions DAILY Per instructio ns DAILY (route: oral) Med Classific ation: Hematolog ical Agents warfarin 5 mg tablet 03-25 00:00: 00 03-31 23:59 :00 No [id number] Per instruc tions DAILY Per instructio ns DAILY (route: oral) Med Classific ation: Hematolog ical Agents Immunizations Ordered Immunization Name Filled Immunization Name Date Status Comments Refusal Reason SHINGLES, TIV (INACTIVATED) 2022-06-24 00:00:00 COVID-19, COVID-19 2022-01-21 00:00:00 PNEUMOCOCCAL (PPV), PPV 2020-06-19 00:00:00 Vital Signs Vital Name Observation Time Observation Value Commen ts Temperature 2023-04-30 13:46:00.000 97.2 [degF] Temperature 2023-04-23 19:31:00.000 96.7 [degF] Temperature 2023-04-01 10:05:00.000 97.7 [degF] Temperature 2023-04-01 09:27:00.000 97 [degF] Temperature 2023-03-29 13:29:00.000 97.2 [degF] Temperature 2023-03-25 21:12:00.000 97.8 [degF] Temperature 2023-03-25 12:32:00.000 97.9 [degF] Temperature 2023-03-18 16:47:00.000 98.1 [degF] Temperature 2023-03-18 10:37:00.000 97.7 [degF] Temperature 2023-03-14 10:51:00.000 97.2 [degF] Temperature 2023-03-13 14:17:00.000 98.1 [degF] Temperature 2023-03-13 10:38:00.000 97.6 [degF] Temperature 2023-03-11 10:05:00.000 97.4 [degF] Temperature 2023-03-08 11:51:00.000 97.2 [degF] Temperature 2023-03-06 12:42:00.000 97.2 [degF] Temperature 2023-03-04 14:05:00.000 97.4 [degF] Temperature 2023-03-03 11:21:00.000 97.6 [degF] Pulse 2023-04-30 13:46:00.000 72 /min Pulse 2023-04-23 19:31:00.000 67 /min Pulse 2023-04-01 10:05:00.000 76 /min Pulse 2023-04-01 09:27:00.000 60 /min Pulse 2023-03-29 13:29:00.000 68 /min Pulse 2023-03-25 21:12:00.000 58 /min Pulse 2023-03-25 12:32:00.000 86 /min Pulse 2023-03-18 16:47:00.000 60 /min Pulse 2023-03-18 10:37:00.000 75 /min Pulse 2023-03-14 10:51:00.000 85 /min Pulse 2023-03-13 14:17:00.000 87 /min Pulse 2023-03-13 10:38:00.000 67 /min Pulse 2023-03-11 10:05:00.000 81 /min Pulse 2023-03-08 11:53:00.000 60 /min Pulse 2023-03-06 12:42:00.000 72 /min Pulse 2023-03-04 14:05:00.000 60 /min Pulse 2023-03-03 11:25:00.000 60 /min O2 Saturation (%) 2023-04-30 13:46:00.000 96 % O2 Saturation (%) 2023-04-01 09:27:00.000 96 % O2 Saturation (%) 2023-03-25 12:32:00.000 98 % O2 Saturation (%) 2023-03-18 10:37:00.000 98 % O2 Saturation (%) 2023-03-13 14:17:00.000 100 % O2 Saturation (%) 2023-03-11 10:05:00.000 97 % O2 Saturation (%) 2023-03-06 12:42:00.000 100 % O2 Saturation (%) 2023-03-04 14:05:00.000 96 % O2 Saturation (%) 2023-03-03 11:21:00.000 100 % Respirations 2023-04-30 13:46:00.000 17 /min Respirations 2023-04-23 19:31:00.000 12 /min Respirations 2023-04-01 10:05:00.000 12 /min Respirations 2023-04-01 09:27:00.000 18 /min Respirations 2023-03-29 13:29:00.000 12 /min Respirations 2023-03-25 21:12:00.000 12 /min Respirations 2023-03-25 12:32:00.000 18 /min Respirations 2023-03-18 16:47:00.000 12 /min Respirations 2023-03-18 10:37:00.000 18 /min Respirations 2023-03-14 10:51:00.000 12 /min Respirations 2023-03-13 14:17:00.000 18 /min Respirations 2023-03-13 10:38:00.000 12 /min Respirations 2023-03-11 10:05:00.000 18 /min Respirations 2023-03-08 11:51:00.000 12 /min Respirations 2023-03-06 12:42:00.000 20 /min Respirations 2023-03-04 14:05:00.000 18 /min Respirations 2023-03-03 11:21:00.000 17 /min Systolic Blood Pressure 2023-04-30 13:46:00.000 128 mm [Hg] Systolic Blood Pressure 2023-04-23 19:31:00.000 152 mm [Hg] Systolic Blood Pressure 2023-04-01 10:05:00.000 125 mm [Hg] Systolic Blood Pressure 2023-04-01 09:27:00.000 100 mm [Hg] Systolic Blood Pressure 2023-03-29 13:29:00.000 134 mm [Hg] Systolic Blood Pressure 2023-03-25 21:12:00.000 122 mm [Hg] Systolic Blood Pressure 2023-03-25 12:32:00.000 100 mm [Hg] Systolic Blood Pressure 2023-03-18 16:47:00.000 150 mm [Hg] Systolic Blood Pressure 2023-03-18 10:37:00.000 100 mm [Hg] Systolic Blood Pressure 2023-03-14 10:51:00.000 100 mm [Hg] Systolic Blood Pressure 2023-03-13 14:17:00.000 110 mm [Hg] Systolic Blood Pressure 2023-03-13 10:38:00.000 109 mm [Hg] Systolic Blood Pressure 2023-03-11 10:05:00.000 110 mm [Hg] Systolic Blood Pressure 2023-03-08 11:51:00.000 116 mm [Hg] Systolic Blood Pressure 2023-03-06 12:42:00.000 122 mm [Hg] Systolic Blood Pressure 2023-03-04 14:05:00.000 96 mm[ Hg] Systolic Blood Pressure 2023-03-03 11:21:00.000 118 mm [Hg] Diastolic Blood Pressure 2023-04-30 13:46:00.000 68 mm [Hg] Diastolic Blood Pressure 2023-04-23 19:31:00.000 87 mm [Hg] Diastolic Blood Pressure 2023-04-01 10:05:00.000 73 mm [Hg] Diastolic Blood Pressure 2023-04-01 09:27:00.000 60 mm [Hg] Diastolic Blood Pressure 2023-03-29 13:29:00.000 74 mm [Hg] Diastolic Blood Pressure 2023-03-25 21:12:00.000 78 mm [Hg] Diastolic Blood Pressure 2023-03-25 12:32:00.000 60 mm [Hg] Diastolic Blood Pressure 2023-03-18 16:47:00.000 72 mm [Hg] Diastolic Blood Pressure 2023-03-18 10:37:00.000 60 mm [Hg] Diastolic Blood Pressure 2023-03-14 10:51:00.000 81 mm [Hg] Diastolic Blood Pressure 2023-03-13 14:17:00.000 62 mm [Hg] Diastolic Blood Pressure 2023-03-13 10:38:00.000 59 mm [Hg] Diastolic Blood Pressure 2023-03-11 10:05:00.000 68 mm [Hg] Diastolic Blood Pressure 2023-03-08 11:51:00.000 59 mm [Hg] Diastolic Blood Pressure 2023-03-06 12:42:00.000 80 mm [Hg] Diastolic Blood Pressure 2023-03-04 14:05:00.000 60 mm [Hg] Diastolic Blood Pressure 2023-03-03 11:21:00.000 64 mm [Hg] Plan of Treatment Planned Activity Planned Date Details Comments Future Scheduled Test SKILLED NU RSE TO EVALUATE PATIENT, IDENTIFY PRIMARY AND CO-MORBID CONDITIONS CODED PER CODING GUIDELINES, AND DEVELOP PATIENT SPECIFIC PLAN OF CARE THAT INCLUDES PATIENT GOAL FOR HOME HEALTH. [code = SKILLED NURSE TO EVALUATE PATIENT, IDENTIFY PRIMARY AND CO-MORBID CONDITIONS CODED PER CODING GUIDELINES, AND DEVELOP PATIENT SPECIFIC PLAN OF CARE THAT INCLUDES PATIENT GOAL FOR HOME HEALTH.] Future Scheduled Test SKILLED NU RSE TO REVIEW PATIENT MEDICATIONS. INSTRUCT PATIENT/CAREGIVER ON MONITORING OF EFFECTIVENESS, ADVERSE DRUG REACTIONS, SIDE EFFECTS OF ALL MEDICATIONS (PRESCRIPTION/-OTC), AND HOW AND WHEN TO REPORT PROBLEMS. [code = SKILLED NURSE TO REVIEW PATIENT MEDICATIONS. INSTRUCT PATIENT/CAREGIVER ON MONITORING OF EFFECTIVENESS, ADVERSE DRUG REACTIONS, SIDE EFFECTS OF ALL MEDICATIONS (PRESCRIPTION/-OTC), AND HOW AND WHEN TO REPORT PROBLEMS.] Future Scheduled Test SKILLED NU RSE MAY PERFORM URINE REAGENT STRIP TESTING AND/OR UA CS 1-3 PRN IF INDICATED FOR SIGNS AND SYMPTOMS OF UTI. IF POSITIVE REAGENT STRIP TEST RESULTS, SKILLED NURSE TO COLLECT URINE SAMPLE FOR UA CS AND REPORT RESULTS TO PHYSICIAN. [code = SKILLED NURSE MAY PERFORM URINE REAGENT STRIP TESTING AND/OR UA CS 1-3 PRN IF INDICATED FOR SIGNS AND SYMPTOMS OF UTI. IF POSITIVE REAGENT STRIP TEST RESULTS, SKILLED NURSE TO COLLECT URINE SAMPLE FOR UA CS AND REPORT RESULTS TO PHYSICIAN.] Future Scheduled Test SKILLED NU RSE FOR O/A, TEACHING, AND MANAGEMENT OF LBB, PROSTHETIC VALVE, AFIB, ASHD, TOTAL OCCLUSION OF CAROTID ARTERY [code = SKILLED NURSE FOR O/A, TEACHING, AND MANAGEMENT OF LBB, PROSTHETIC VALVE, AFIB, ASHD, TOTAL OCCLUSION OF CAROTID ARTERY] Future Scheduled Test SKILLED NU RSE FOR O/A, TEACHING AND MANAGEMENT OF CKD FOR EARLY IDENTIFICATION OF EXACERBATION OF DISEASE PROCESS [code = SKILLED NURSE FOR O/A, TEACHING AND MANAGEMENT OF CKD FOR EARLY IDENTIFICATION OF EXACERBATION OF DISEASE PROCESS] Future Scheduled Test SKILLED NU RSE FOR O/A RELATED TO SIGNS AND SYMPTOMS OF INFECTION AND TO PROVIDE TEACHING REGARDING INFECTION CONTROL MEASURES R/T HX CELLULITIS AND OM. [code = SKILLED NURSE FOR O/A RELATED TO SIGNS AND SYMPTOMS OF INFECTION AND TO PROVIDE TEACHING REGARDING INFECTION CONTROL MEASURES R/T HX CELLULITIS AND OM.] Future Scheduled Test NEED FOR S KILLED TEACHING AND INTERVENTION RELATED TO L BUTTOCKS STAGE 2 PRESSURE ULCER SKILLED NURSE OR TRAINED PATIENT/CAREGIVER TO PERFORM WOUND CARE PER CURRENT ORDERS. USING ASEPTIC TECHNIQUE, CLEANSE WITH NORMAL SALINE, PAT DRY WITH DRY GAUZE, APPLY MICONAZOLE 2% TO PERIWOUND, APPLY TRIAD TO WOUND BED, KEEP OPEN TO AIR, WOUND CARE TO BE PERFORMED TWICE DAILY AND PRN IF SOILED OR DISLODGED. 1-2 PRN SKILLED NURSE VISITS FOR WOUND CARE DUE TO COMPLICATIONS. SKILLED NURSE TO OBTAIN WOUND CULTURE PRN S/S OF INFECTION. WOUND CARE WILL BE PERFORMED BY TRAINED CAREGIVER ON DAYS WHEN SKILLED NURSE IS NOT SCHEDULED FOR A VISIT. DISCONTINUE WOUND CARE/SUPPLIES ONCE WOUND IS HEALED. [code = NEED FOR SKILLED TEACHING AND INTERVENTION RELATED TO L BUTTOCKS STAGE 2 PRESSURE ULCER SKILLED NURSE OR TRAINED PATIENT/CAREGIVER TO PERFORM WOUND CARE PER CURRENT ORDERS. USING ASEPTIC TECHNIQUE, CLEANSE WITH NORMAL SALINE, PAT DRY WITH DRY GAUZE, APPLY MICONAZOLE 2% TO PERIWOUND, APPLY TRIAD TO WOUND BED, KEEP OPEN TO AIR, WOUND CARE TO BE PERFORMED TWICE DAILY AND PRN IF SOILED OR DISLODGED. 1-2 PRN SKILLED NURSE VISITS FOR WOUND CARE DUE TO COMPLICATIONS. SKILLED NURSE TO OBTAIN WOUND CULTURE PRN S/S OF INFECTION. WOUND CARE WILL BE PERFORMED BY TRAINED CAREGIVER ON DAYS WHEN SKILLED NURSE IS NOT SCHEDULED FOR A VISIT. DISCONTINUE WOUND CARE/SUPPLIES ONCE WOUND IS HEALED.] Future Scheduled Test SKILLED NU RSE FOR O/A TO IDENTIFY CHANGES ASSOCIATED WITH DIABETIC NEUROPATHY AND PROVIDE INSTRUCTION RELATED TO SAFETY MEASURES TO PREVENT INJURY SECONDARY TO IMPAIRED NEUROLOGICAL STATUS. SKILLED NURSE TO REPORT SIGNIFICANT CHANGES OF NEUROLOGIC STATUS TO PHYSICIAN FOR EARLY INTERVENTION. [code = SKILLED NURSE FOR O/A TO IDENTIFY CHANGES ASSOCIATED WITH DIABETIC NEUROPATHY AND PROVIDE INSTRUCTION RELATED TO SAFETY MEASURES TO PREVENT INJURY SECONDARY TO IMPAIRED NEUROLOGICAL STATUS. SKILLED NURSE TO REPORT SIGNIFICANT CHANGES OF NEUROLOGIC STATUS TO PHYSICIAN FOR EARLY INTERVENTION.] Future Scheduled Test SKILLED NU RSE FOR MONITORING, O/A AND TEACHING RELATED TO MANAGEMENT OF ANTICOAGULATION THERAPY INCLUDING DIET, MEDICATION SIDE EFFECTS, SAFETY MEASURES TO PREVENT INJURY, AND S/S TO REPORT. PT/INR TO BE OBTAINED ORDERED AND RESULTS REPORTED TO PHYSICIAN. NEXT INR DUE 03/04/23 [code = SKILLED NURSE FOR MONITORING, O/A AND TEACHING RELATED TO MANAGEMENT OF ANTICOAGULATION THERAPY INCLUDING DIET, MEDICATION SIDE EFFECTS, SAFETY MEASURES TO PREVENT INJURY, AND S/S TO REPORT. PT/INR TO BE OBTAINED ORDERED AND RESULTS REPORTED TO PHYSICIAN. NEXT INR DUE 03/04/23] Future Scheduled Test PHYSICAL T HERAPIST TO EVALUATE PATIENT FOR STRENGTH AND STANDING WITH FULL WEIGHT BEARING CAPABILITIES PER [facility] DISCHARGE INSTRUCTION [code = PHYSICAL THERAPIST TO EVALUATE PATIENT FOR STRENGTH AND STANDING WITH FULL WEIGHT BEARING CAPABILITIES PER [facility] DISCHARGE INSTRUCTION ] Future Scheduled Test SKILLED NU RSE FOR O/A, RELATED TO HEART FAILURE. INSTRUCT PATIENT/CAREGIVER ON SIGNS AND SYMPTOMS OF EXACERBATION TO REPORT. UNABLE TO WEIGH PATIENT, SKILLED NURSE TO OBTAIN MEASUREMENT OF BILATERAL LOWER LEGS IN CM AT EACH VISIT AND REPORT AN INCREASE OF 1 CM TO PHYSICIAN. [code = SKILLED NURSE FOR O/A, RELATED TO HEART FAILURE. INSTRUCT PATIENT/CAREGIVER ON SIGNS AND SYMPTOMS OF EXACERBATION TO REPORT. UNABLE TO WEIGH PATIENT, SKILLED NURSE TO OBTAIN MEASUREMENT OF BILATERAL LOWER LEGS IN CM AT EACH VISIT AND REPORT AN INCREASE OF 1 CM TO PHYSICIAN.] Future Scheduled Test SKILLED NU RSE FOR O/A AND SKILLED TEACHING RELATED TO SIGNS AND SYMPTOMS AND MANAGEMENT OF ANEMIA. [code = SKILLED NURSE FOR O/A AND SKILLED TEACHING RELATED TO SIGNS AND SYMPTOMS AND MANAGEMENT OF ANEMIA.] Future Scheduled Test SKILLED NU RSE FOR O/A AND TEACHING OF DIABETIC MANAGEMENT INCLUDING BLOOD SUGAR MONITORING/USE OF GLUCOMETER, DIABETIC DIET, LOWER EXTREMITY SKIN INSPECTION, PROPER SKIN/FOOT CARE, AND SIGNS AND SYMPTOMS HYPO/HYPERGLYCEMIA TO REPORT. [code = SKILLED NURSE FOR O/A AND TEACHING OF DIABETIC MANAGEMENT INCLUDING BLOOD SUGAR MONITORING/USE OF GLUCOMETER, DIABETIC DIET, LOWER EXTREMITY SKIN INSPECTION, PROPER SKIN/FOOT CARE, AND SIGNS AND SYMPTOMS HYPO/HYPERGLYCEMIA TO REPORT.] Future Scheduled Test PATIENT HUITRON S A RISK OF HOSPITALIZATION AND ED USE. SKILLED NURSE TO ESTABLISH SUPPORT MEASURES TO MINIMIZE RISK OF HOSPITALIZATION AND ED USE, AND INSTRUCT PATIENT/CAREGIVER ON METHODS TO REDUCE AVOIDABLE HOSPITALIZATION AND ED USE. [code = PATIENT HAS A RISK OF HOSPITALIZATION AND ED USE. SKILLED NURSE TO ESTABLISH SUPPORT MEASURES TO MINIMIZE RISK OF HOSPITALIZATION AND ED USE, AND INSTRUCT PATIENT/CAREGIVER ON METHODS TO REDUCE AVOIDABLE HOSPITALIZATION AND ED USE.] Future Scheduled Test SKILLED NU RSE TO PROVIDE INSTRUCTION TO PATIENT/CAREGIVER RELATED TO DISCHARGE PLANNING. [code = SKILLED NURSE TO PROVIDE INSTRUCTION TO PATIENT/CAREGIVER RELATED TO DISCHARGE PLANNING.] Future Scheduled Test SKILLED NU RSE TO PERFORM HOME SAFETY AND FALL ASSESSMENT AND PROVIDE INSTRUCTION TO IMPLEMENT HOME SAFETY AND FALL PREVENTION STRATEGIES. [code = SKILLED NURSE TO PERFORM HOME SAFETY AND FALL ASSESSMENT AND PROVIDE INSTRUCTION TO IMPLEMENT HOME SAFETY AND FALL PREVENTION STRATEGIES.] Future Scheduled Test SKILLED NU RSE FOR OBSERVATION AND ASSESSMENT OF PATIENTS PAIN LEVEL AND EFFECTIVENESS OF PAIN MANAGEMENT REGIMEN. SKILLED NURSE TO INSTRUCT PATIENT/CAREGIVER REGARDING PHARMACOLOGIC AND NON-PHARMACOLOGIC PAIN CONTROL MEASURES. SKILLED NURSE TO REPORT TO PHYSICIAN IF PAIN IS UNCONTROLLED WITH CURRENT PAIN MANAGEMENT REGIMEN. [code = SKILLED NURSE FOR OBSERVATION AND ASSESSMENT OF PATIENTS PAIN LEVEL AND EFFECTIVENESS OF PAIN MANAGEMENT REGIMEN. SKILLED NURSE TO INSTRUCT PATIENT/CAREGIVER REGARDING PHARMACOLOGIC AND NON-PHARMACOLOGIC PAIN CONTROL MEASURES. SKILLED NURSE TO REPORT TO PHYSICIAN IF PAIN IS UNCONTROLLED WITH CURRENT PAIN MANAGEMENT REGIMEN.] Future Scheduled Test SKILLED NU RSE TO ASSESS PATIENT'S SKIN INTEGRITY AND INSTRUCT PATIENT/CAREGIVER ON MEASURES TO PREVENT PRESSURE ULCERS. [code = SKILLED NURSE TO ASSESS PATIENT'S SKIN INTEGRITY AND INSTRUCT PATIENT/CAREGIVER ON MEASURES TO PREVENT PRESSURE ULCERS.] Future Scheduled Test PHYSICAL T HERAPIST TO EVALUATE PATIENT SECONDARY TO FUNCTIONAL DEFICITS/SAFETY CONCERNS. PHYSICAL THERAPY TO ESTABLISH /UPGRADE/DOWNGRADE THERAPEUTIC EXERCISE PROGRAM AND INSTRUCT PATIENT/CAREGIVER ON EXERCISE PRECAUTIONS WITH WRITTEN HOME PROGRAM. PHYSICAL THERAPY TO INSTRUCT PATIENT/CAREGIVER ON BED MOBILITY TECHNIQUES TO IMPROVE PATIENT MOBILITY AND POSITIONING TECHNIQUES IN ORDER TO INCREASE PATIENTS COMFORT AND DECREASE RISK OF SKIN BREAKDOWN. PHYSICAL THERAPY TO INSTRUCT PATIENT/CAREGIVER ON SAFE TRANSFER TECHNIQUES USING PROPER BODY MECHANICS AND EQUIPMENT. PHYSICAL THERAPY TO ASSESS AND RECOMMEND HOME SAFETY ADAPTATIONS AND EDUCATE PATIENT /CAREGIVER ON FALL PREVENTION STRATEGIES. SUMMARY OF THERAPY EVAL/ASSESSMENT FINDINGS AND REASON(S) SKILLS OF A THERAPIST ARE INDICATED: PT WAS SEEN FOR INITIAL PHYSICAL THERAPY VISIT AND HOME SAFETY ASSESSMENT COMPLETED. PT IS AN 78 YEAR OLD WHO WAS IN HOSPITAL FOR AFIB AND DM. PT HAS OPEN AREA ON BUTTOCKS. ACCORDING TO PT , HE HAS BEEN HOSPITALIZED 1 YEAR AND REHAB IN AND OUT AND ACCORDING TO PATIENT DID NOT DO MUCH THERAPY. PT REPORTS HISTORY OF FALLS AND WOUNDS ON LEGS. PT HAS NOT STOOD IN GREATER THAN 6 MONTHS AND IS EAGER TO START. PT IS UNABLE TO TRANSFER FROM BED AT THIS TIME. NOW LIVES WITH DTR AND STAYS IN ROOM. STAYS IN HIS ROOM. REPORTS NOT GETTING OUT OF ROOM. CANNOT WALK AND CANNOT STAND AT THIS TIME. PT USING BED MECHANICS TO UP IN BED. REPORTS ROTATOR CUFF TEAR BUT UNABLE TO REPAIR DUE TO CARDIAC ISSUES. L ANKLE CRUSHED IN 1972 AND REPAIRED. ANKLE DF PF ABSENT SINCE 1999. NO PF ON R . PLOF. OVER ONE YEAR AGO WAS DRIVING. B TKR 1999 AND 2000. WAS DIABETIC BUT PT STATES WITH WEIGHT LOSS HE NO LONGER NEEDS TO MONITOR. WHEN AT HOME, PT WOULD TRANSFERS TO AND WOULD WALK MINIMALLY 4 TO 5 FEET WITH WALK. PT WANTING TO RETURN HOME. HEP INITIATED. TO BE DONE 3 TIMES A DAY. KNEES TO CHEST, HIP ABD ADD, SLR, BRIDGES X 10. SEATED. MARCHES, KICKS AND R ANKLE DF X 10. PT EDUCATED IN HOW FO REPOSITION IN BED AND TO SIT UPRIGHT TO REGAIN CORE STRENGTH AND HEP. WRITTEN PROGRAM PROVIDED. PT IS A CANDIDATE FOR SKILLED PHYSICAL THERAPY TO ADDRESS PHYSICAL IMPAIRMENTS AND FUNCTIONAL LIMITATIONS. PATIENT VERBALIZES AGREEMENT WITH POC. NOTIFIED. [code = PHYSICAL THERAPIST TO EVALUATE PATIENT SECONDARY TO FUNCTIONAL DEFICITS/SAFETY CONCERNS. PHYSICAL THERAPY TO ESTABLISH /UPGRADE/DOWNGRADE THERAPEUTIC EXERCISE PROGRAM AND INSTRUCT PATIENT/CAREGIVER ON EXERCISE PRECAUTIONS WITH WRITTEN HOME PROGRAM. PHYSICAL THERAPY TO INSTRUCT PATIENT/CAREGIVER ON BED MOBILITY TECHNIQUES TO IMPROVE PATIENT MOBILITY AND POSITIONING TECHNIQUES IN ORDER TO INCREASE PATIENTS COMFORT AND DECREASE RISK OF SKIN BREAKDOWN. PHYSICAL THERAPY TO INSTRUCT PATIENT/CAREGIVER ON SAFE TRANSFER TECHNIQUES USING PROPER BODY MECHANICS AND EQUIPMENT. PHYSICAL THERAPY TO ASSESS AND RECOMMEND HOME SAFETY ADAPTATIONS AND EDUCATE PATIENT /CAREGIVER ON FALL PREVENTION STRATEGIES. SUMMARY OF THERAPY EVAL/ASSESSMENT FINDINGS AND REASON(S) SKILLS OF A THERAPIST ARE INDICATED: PT WAS SEEN FOR INITIAL PHYSICAL THERAPY VISIT AND HOME SAFETY ASSESSMENT COMPLETED. PT IS AN 78 YEAR OLD WHO WAS IN HOSPITAL FOR AFIB AND DM. PT HAS OPEN AREA ON BUTTOCKS. ACCORDING TO PT , HE HAS BEEN HOSPITALIZED 1 YEAR AND REHAB IN AND OUT AND ACCORDING TO PATIENT DID NOT DO MUCH THERAPY. PT REPORTS HISTORY OF FALLS AND WOUNDS ON LEGS. PT HAS NOT STOOD IN GREATER THAN 6 MONTHS AND IS EAGER TO START. PT IS UNABLE TO TRANSFER FROM BED AT THIS TIME. NOW LIVES WITH DTR AND STAYS IN ROOM. STAYS IN HIS ROOM. REPORTS NOT GETTING OUT OF ROOM. CANNOT WALK AND CANNOT STAND AT THIS TIME. PT USING BED MECHANICS TO UP IN BED. REPORTS ROTATOR CUFF TEAR BUT UNABLE TO REPAIR DUE TO CARDIAC ISSUES. L ANKLE CRUSHED IN 1972 AND REPAIRED. ANKLE DF PF ABSENT SINCE 1999. NO PF ON R . PLOF. OVER ONE YEAR AGO WAS DRIVING. B TKR 1999 AND 2000. WAS DIABETIC BUT PT STATES WITH WEIGHT LOSS HE NO LONGER NEEDS TO MONITOR. WHEN AT HOME, PT WOULD TRANSFERS TO AND WOULD WALK MINIMALLY 4 TO 5 FEET WITH WALK. PT WANTING TO RETURN HOME. HEP INITIATED. TO BE DONE 3 TIMES A DAY. KNEES TO CHEST, HIP ABD ADD, SLR, BRIDGES X 10. SEATED. MARCHES, KICKS AND R ANKLE DF X 10. PT EDUCATED IN HOW FO REPOSITION IN BED AND TO SIT UPRIGHT TO REGAIN CORE STRENGTH AND HEP. WRITTEN PROGRAM PROVIDED. PT IS A CANDIDATE FOR SKILLED PHYSICAL THERAPY TO ADDRESS PHYSICAL IMPAIRMENTS AND FUNCTIONAL LIMITATIONS. PATIENT VERBALIZES AGREEMENT WITH POC. MD NOTIFIED. ] Future Scheduled Test SKILLED NU RSE FOR O/A OF DEPRESSIVE SYMPTOMS TO IDENTIFY CHANGES ASSOCIATED WITH MEDICATION THERAPY OR DEGRESSIONS OF DISEASE PROCESS. SN TO REPORT SIGNIFICANT CHANGE IN DEPRESSIVE SYMPTOMS TO MD FOR EARLY INTERVENTION. [code = SKILLED NURSE FOR O/A OF DEPRESSIVE SYMPTOMS TO IDENTIFY CHANGES ASSOCIATED WITH MEDICATION THERAPY OR DEGRESSIONS OF DISEASE PROCESS. SN TO REPORT SIGNIFICANT CHANGE IN DEPRESSIVE SYMPTOMS TO MD FOR EARLY INTERVENTION.] Goal 2022-08-29 Patient Goal - TO WALK AGAIN Goal 2022-10-22 Patient Goal - TO WALK AGAIN Goal 2022-12-31 Patient Goal - TO WALK AGAIN Goal 2022-10-29 Patient Goal - TO WALK AGAIN Goal 2023-02-19 Patient Goal - TO WALK AGAIN Goal 2023-04-30 Patient Goal - TO WALK AGAIN Goal 2023-02-25 Patient Goal - TO WALK AGAIN Goal Provider Goal - A PLAN OF CARE WILL BE ESTABLISHED THAT MEETS PATIENT'S [facility] NEEDS AND INCLUDES PATIENT GOAL FOR HOME HEALTH. Goal Provider Goal - PATIENT/CAREGIVER WILL VERBALIZE UNDERSTANDING OF EDUCATION PROVIDED ON MEDICATIONS BY THE END OF THE CERTIFICATION PERIOD. Goal Provider Goal - URINE SPECIMEN WILL BE OBTAINED PRN FOR SIGNS AND SYMPTOMS OF UTI AND RESULTS WILL BE REPORTED TO PHYSICIAN THROUGHOUT THE CERTIFICATION PERIOD. Goal Provider Goal - PATIENT/CAREGIVER WILL VERBALIZE/DEMONSTRATE MANAGEMENT OF CARDIAC DISEASE PROCESS AND EXACERBATIONS WILL BE IDENTIFIED AND PROMPTLY REPORTED THROUGHOUT THE CERTIFICATION PERIOD. Goal Provider Goal - PATIENT/CAREGIVER WILL VERBALIZE UNDERSTANDING OF GENITOURINARY DISEASE PROCESS, AND EXACERBATIONS OF GENITOURINARY DISEASE WILL BE PROMPTLY IDENTIFIED FOR EARLY INTERVENTION THROUGHOUT THE CERTIFICATION PERIOD. Goal Provider Goal - PATIENT/CAREGIVER WILL VERBALIZE/DEMONSTRATE INFECTION CONTROL MEASURES AND SIGNS AND SYMPTOMS OF INFECTION WILL BE IDENTIFIED AND PHYSICIAN NOTIFIED FOR PROMPT INTERVENTION THROUGHOUT THE CERTIFICATION PERIOD. Goal Provider Goal - WOUND CARE WILL BE COMPLETED AND PATIENT WILL HAVE IMPROVED WOUND STATUS EVIDENCED BY NO SIGNS AND SYMPTOMS OF INFECTION, DECREASED WOUND SIZE, AND/OR NO COMPLICATIONS BY THE END OF THE CERTIFICATION PERIOD. Goal Provider Goal - CHANGES IN NEUROLOGIC STATUS WILL BE IDENTIFIED AND REPORTED TO THE PHYSICIAN FOR PROMPT INTERVENTION OF ASSOCIATED RISK. PATIENT/CAREGIVER WILL VERBALIZE/DEMONSTRATE APPROPRIATE SAFETY MEASURES TO PREVENT INJURY BY THE END OF THE CERTIFICATION PERIOD. Goal Provider Goal - PATIENT/CAREGIVER WILL VERBALIZE/DEMONSTRATE UNDERSTANDING OF MANAGEMENT OF ANTICOAGULATION THERAPY BY END OF EPISODE. PT/INR OBTAINED AND REPORTED TO PHYSICIAN. Goal Provider Goal - A PHYSICAL THERAPY EVALUATION TO BE COMPLETED WITH RECOMMENDATIONS AND/OR WRITTEN PLAN OF TREATMENT ESTABLISHED FOR PHYSICIANS SIGNATURE. Goal Provider Goal - PATIENT/CAREGIVER WILL VERBALIZE/DEMONSTRATE KNOWLEDGE AND MANAGEMENT OF HEART FAILURE DISEASE PROCESS BY END OF EPISODE. Goal Provider Goal - PATIENT/CARGIVER WILL VERBALIZE UNDERSTANDING OF ANEMIA INCLUDING SIGNS AND SYMPTOMS, MANAGEMENT OF COMPLICATIONS, AND PRESCRIBED TREATMENT REGIMEN BY END OF EPISODE. Goal Provider Goal - PATIENT/CAREGIVER WILL VERBALIZE/DEMONSTRATE KNOWLEDGE OF DIABETIC MANAGEMENT. CHANGES IN DIABETIC STATUS WILL BE IDENTIFIED AND REPORTED TO PHYSICIAN FOR PROMPT INTERVENTION THROUGHOUT THE CERTIFICATION PERIOD. Goal Provider Goal - PATIENT WILL HAVE SUPPORT MEASURES ESTABLISHED TO PREVENT HOSPITALIZATION AND ED USE AND PATIENT/CAREGIVER WILL VERBALIZE/DEMONSTRATE METHODS TO REDUCE AVOIDABLE HOSPITALIZATION AND ED USE BY END OF EPISODE. Goal Provider Goal - PATIENT/CAREGIVER WILL VERBALIZE UNDERSTANDING OF DISCHARGE PLANNING INSTRUCTIONS BY DATE OF DISCHARGE. Goal Provider Goal - PATIENT/CAREGIVER WILL VERBALIZE/DEMONSTRATE EFFECTIVE HOME SAFETY AND FALL PREVENTION STRATEGIES THROUGHOUT CERTIFICATION PERIOD. Goal Provider Goal - PATIENT/CAREGIVER WILL DEMONSTRATE UNDERSTANDING OF PHARMACOLOGIC AND NONPHARMACOLOGIC PAIN CONTROL MEASURES AND PATIENT WILL HAVE IMPROVEMENT IN PAIN INTERFERING WITH ACTIVITY EVIDENCED BY PAIN CONTROLLED AT LEVEL OF 7 OR LESS BY END OF CERTIFICATION PERIOD. Goal Provider Goal - PATIENT/CAREGIVER WILL VERBALIZE UNDERSTANDING OF PRESSURE ULCER PREVENTION BY END OF THE EPISODE. Goal Provider Goal - PHYSICAL THERAPY EVALUATION TO BE COMPLETED WITH RECOMMENDATIONS AND/OR WRITTEN TREATMENT PLAN OF CARE ESTABLISHED FOR THE PHYSICIANS SIGNATURE PATIENT/CAREGIVER WILL PERFORM THERAPEUTIC EXERCISE/S AND DEMONSTRATE PARTICIPATION IN A HOME PROGRAM TO IMPROVE FUNCTIONAL MOBILITY BY [id number] PATIENT/CAREGIVER WILL DEMONSTRATE IMPROVED BED MOBILITY TECHNIQUES TO IMPROVE BED MOBILITY BY [id number] PATIENT/CAREGIVER WILL DEMONSTRATE SAFE TRANSFERS USING APPROPRIATE ASSISTIVE DEVICE, BODY MECHANICS AND EQUIPMENT TO IMPROVE FUNCTIONAL TRANSFERS WITH ASSISTANCE BY [id number] PATIENT/CAREGIVER WILL DEMONSTRATE/VERBALIZE UNDERSTANDING OF RECOMMENDATIONS TO INCREASE SAFETY IN THE HOME AND FALL PREVENTION TO IMPROVE FUNCTION. ONGOING Goal Provider Goal - CHANGES IN PATIENTS DEPRESSIVE SYMPTOMS WILL BE IDENTIFIED AND MD PROMPTLY NOTIFIED TO MINIMIZE ASSOCIATED RISKS BY THE END OF THE CERTIFICATION PERIOD. Reason for Visit MODERATE ASSIST WITH TRANSFER/AMBULATION/ADLS Encounters Start Date/Time End Date/Time Encounter Type Admission Type Attending [facility] Care Department Encounter ID Discharge Date Discharge Status Discharge Condition Discharge Reason Percent Goals Met 2022-07-05 00:00:00 2023-04-30 00:00:00 Outpatient RECERTIFIC ATION DIMITRYLOPEZ LEONOR [facility] [id number] 2023-04-30 00:00:00 DISCHARGE TO HOME OR SELF CARE MODERATE ASSIST WITH TRANSFER/A MBULATION/ ADLS MAX POTENTIAL MET ( ONLY) 80.65
--- OUTSIDE RECORDS SUMMARY | 2024-06-24 02:28 | XMS_ITS | Clinical Summary ---
Author Organization Unknown Care Team Providers Care Frozen Meat Cutter Name Role Phone WANDA [place], [place] Unavailable Unavailable MOISE RN, AARTI Unavailable Unavailable CEDRICK OT, DEEJAY Unavailable Unavailabl ileana MESSINA OT, THERAPY RADIO STATION ENGINEER, DANDY Unavailabl e Unavailable LENIN PT, LEONOR Unavailable Unavailable CANDIE LOREDO, GISELA Unavailable Unavailable SHARONDA SWITCHBOARD WIRER, ENZO Unavailable Unavailable Payers Payer Name Policy Type Policy Number Effective Date Expira tion Date [place]IC[place] - [place] [id number] [facility] [id number] Problems Condition Name Condition Details Condition Category Status Onset Date Resolution Date Last Treatment Date Treating Clinician Comments PRESSURE ULCER OF LEFT BUTTOCK, STAGE 2 Active 6-20 00:00: 00 PAROXYSMAL ATRIAL FIBRILLATION Active 08-29 00:00: 00 HYPERLIPIDEM IA, UNSPECIFIED Active 08-29 00:00: 00 ATHSCL HEART DISEASE OF [place] CORONARY ARTERY W/O ANG PCTRS Active 08-29 [...] PROSTHETIC HEART VALVE Active 08-29 00:00: 00 FPC (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 Active 02-25 00:00: [...] 325 mg capsule 2021-07 00:00: 00 Yes [id number] 2 capsule DAILY 2 capsule DAILY (route: oral) Med Classific ation: Analgesic , Anti-infl ammatory or Antipyret ic allopurinol 300 mg tablet 2021-07 00:00: 00 08-29 23:59 :00 No [id number] 1 tablet DAILY 1 tablet DAILY (route: oral) Med Classific ation: Gout and Hyperuric emia Therapy doxycycline hyclate 100 mg capsule 2021-07 00:00: 00 Yes [id number] 1 capsule 2 TIMES DAILY 1 capsule 2 TIMES DAILY (route: oral) Med Classific ation: Anti-Infe ctive Agents gabapentin 100 mg capsule 2021-07 00:00: 00 10-22 23:59 :00 No [id number] 1 capsule 2 TIMES DAILY 1 capsule 2 TIMES DAILY (route: oral) Med Classific ation: Central Nervous System Agents multivitami n tablet 2021-07 00:00: 00 Yes [id number] 1 tablet DAILY 1 tablet DAILY (route: oral) Med Classific ation: Electroly te Balance-N utritiona l Products pantoprazol e 40 mg tablet,alvina yed release 2021-07 00:00: 00 Yes [id number] 1 tablet DAILY 1 tablet DAILY (route: oral) Med Classific ation: Gastroint estinal Therapy Agents Santyl 250 unit/gram topical ointment 2021-07 00:00: 00 08-29 23:59 :00 No [id number] 1 inch DAILY 1 inch DAILY (route: topical) Med Classific ation: Dermatolo gical simvastatin 20 mg tablet 2021-07 00:00: 00 Yes [id number] 1 tablet DAILY 1 tablet DAILY (route: oral) Med Classific ation: Cardiovas cular Therapy Agents warfarin 4 mg tablet 2021-07 00:00: 00 07-09 23:59 :00 No [id number] 1 tablet DAILY 1 tablet DAILY (route: oral) Med Classific ation: Hematolog ical Agents warfarin 5 mg tablet 2021-07 00:00: 00 07-10 23:59 :00 No [id number] 1 tablet DAILY 1 tablet DAILY (route: oral) Med Classific ation: Hematolog ical Agents warfarin 5 mg tablet 1- 00:00: 00 07-17 23:59 :00 No [id number] 5 mg DAILY 5 mg DAILY (route: oral) Med Classific ation: Hematolog ical Agents warfarin 5 mg tablet 1-05 00:00: 00 07-25 23:59 :00 No [id number] Per instruc tions DAILY Per instructio ns DAILY (route: oral) Med Classific ation: Hematolog ical Agents warfarin 5 mg tablet 1-13 00:00: 00 08-01 23:59 :00 No [id number] 5 mg DAILY 5 mg DAILY (route: oral) Med Classific ation: Hematolog ical Agents warfarin 5 mg tablet 1-19 00:00: 00 08-07 23:59 :00 No [id number] Per instruc tions DAILY Per instructio ns DAILY (route: oral) Med Classific ation: Hematolog ical Agents Jantoven 5 mg tablet 1-26 00:00: 00 08-15 23:59 :00 No [id number] 1 tablet DAILY 1 tablet DAILY (route: oral) Med Classific ation: Hematolog ical Agents warfarin 5 mg tablet 2-02 00:00: 00 08-22 23:59 :00 No [id number] Per instruc tions DAILY Per instructio ns DAILY (route: oral) Med Classific ation: Hematolog ical Agents warfarin 5 mg tablet 2-09 00:00: 00 09-05 23:59 :00 No [id number] Per instruc tions DAILY Per instructio ns DAILY (route: oral) Med Classific ation: Hematolog ical Agents metoprolol succinate ER 50 mg tablet,exte nded release 24 hr 2-21 00:00: 00 Yes [id number] 3 tablet DAILY 3 tablet DAILY (route: oral) Med Classific ation: Cardiovas cular Therapy Agents warfarin 5 mg tablet 2-23 00:00: 00 09-19 23:59 :00 No [id number] 1 tablet DAILY 1 tablet DAILY (route: oral) Med Classific ation: Hematolog ical Agents warfarin 5 mg tablet 0 3-16 00:00: 00 10-10 23:59 :00 No [id number] Per instruc tions DAILY Per instructio ns DAILY (route: oral) Med Classific ation: Hematolog ical Agents warfarin 5 mg tablet 3-30 00:00: 00 10-17 23:59 :00 No [id number] Per instruc tions DAILY Per instructio ns DAILY (route: oral) Med Classific ation: Hematolog ical Agents amoxicillin 875 mg-potassiu m clavulanate 125 mg tablet 4-10 00:00: 00 11-30 23:59 :00 No [id number] 1 tablet 2 TIMES DAILY 1 tablet 2 TIMES DAILY (route: oral) Med Classific ation: Anti-Infe ctive Agents cyanocobala min (vit B-12) 1,000 mcg tablet 10-22 00:00: 00 Yes [id number] 1 tablet DAILY 1 tablet DAILY (route: oral) Med Classific ation: Electroly te Balance-N utritiona l Products gabapentin 100 mg capsule 10-22 00:00: 00 Yes [id number] 2 capsule 2 TIMES DAILY 2 capsule 2 TIMES DAILY (route: oral) Med Classific ation: Central Nervous System Agents warfarin 5 mg tablet 10-22 00:00: 00 11-05 18:31 :00 No [id number] Per instruc tions DAILY Per instructio ns DAILY (route: oral) Med Classific ation: Hematolog ical Agents warfarin 5 mg tablet 11-05 00:00: 00 11-12 23:59 :00 No [id number] Per instruc tions DAILY Per instructio ns DAILY (route: oral) Med Classific ation: Hematolog ical Agents warfarin 5 mg tablet 11-12 00:00: 00 11-18 23:59 :00 No [id number] Per instruc tions DAILY Per instructio ns DAILY (route: oral) Med Classific ation: Hematolog ical Agents warfarin 5 mg tablet 11-19 00:00: 00 11-24 23:59 :00 No [id number] Per instruc tions DIRECTED Per instructio ns DIRECTED (route: oral) Med Classific ation: Hematolog ical Agents warfarin 5 mg tablet 12-10 00:00: 12-16 23:59 :00 No [id number] Per instruc tions DAILY Per instructio ns DAILY (route: oral) Med Classific ation: Hematolog ical Agents warfarin 5 mg tablet 06 00:00: 00 12-23 23:59 :00 No [id number] Per instruc tions DAILY Per instructio ns DAILY (route: oral) Med Classific ation: Hematolog ical Agents warfarin 5 mg tablet 6-14 00:00: 00 12-30 23:59 :00 No [id number] Per instruc tions DAILY Per instructio ns DAILY (route: oral) Med Classific ation: Hematolog ical Agents warfarin 5 mg tablet 6- 00:00: 00 01-07 00:00 :00 No [id number] 1 tablet DAILY 1 tablet DAILY (route: oral) Med Classific ation: Hematolog ical Agents warfarin 5 mg tablet 01-07 00:00: 00 01-14 23:59 :00 No [id number] Per instruc tions DAILY Per instructio ns DAILY (route: oral) Med Classific ation: Hematolog ical Agents warfarin 5 mg tablet 7-11 00:00: 00 01-27 23:59 :00 No [id number] Per instruc tions DAILY Per instructio ns DAILY (route: oral) Med Classific ation: Hematolog ical Agents warfarin 5 mg tablet 7-18 00:00: 00 02-04 23:59 :00 No [id number] Per instruc tions DAILY Per instructio ns DAILY (route: oral) Med Classific ation: Hematolog ical Agents warfarin 5 mg tablet -25 00:00: 00 02-11 23:59 :00 No [id number] 1.5 tablet DAILY 1.5 tablet DAILY (route: oral) Med Classific ation: Hematolog ical Agents warfarin 5 mg tablet 8- 00:00: 00 02-18 23:59 :00 No [id number] Per instruc tions DAILY Per instructio ns DAILY (route: oral) Med Classific ation: Hematolog ical Agents Antifungal (miconazole ) 2 % topical cream 02-19 00:00: 00 Yes [id number] Per instruc tions 2 TIMES DAILY Per instructio ns 2 TIMES DAILY (route: topical) Med Classific ation: Dermatolo gical Augmentin 500 mg-125 mg tablet 02-17 00:00: 00 02-21 23:59 :00 No [id number] 1 tablet 2 TIMES DAILY 1 tablet 2 TIMES DAILY (route: oral) Med Classific ation: Anti-Infe ctive Agents warfarin 5 mg tablet 03-11 00:00: 00 03-12 23:59 :00 No [id number] 1.5 tablet DAILY 1.5 tablet DAILY (route: oral) Med Classific ation: Hematolog ical Agents warfarin 5 mg tablet 03-10 00:00: 00 03-10 23:59 :00 No [id number] 1 tablet DAILY 1 tablet DAILY (route: oral) Med Classific ation: Hematolog ical Agents warfarin 5 mg tablet 03-13 00:00: 00 03-18 23:59 :00 No [id number] Per instruc tions DAILY Per instructio ns DAILY (route: oral) Med Classific ation: Hematolog ical Agents warfarin 5 mg tablet 03-18 00:00: 00 03-24 23:59 :00 No [id number] Per instruc tions DAILY Per instructio ns DAILY (route: oral) Med Classific ation: Hematolog ical Agents warfarin 5 mg tablet 03-25 00:00: 00 03-31 23:59 :00 No [id number] Per instruc tions DAILY Per instructio ns [...] STANDING WITH FULL WEIGHT BEARING CAPABILITIES PER [facility] DISCHARGE INSTRUCTION [code = PHYSICAL THERAPIST TO EVALUATE PATIENT FOR STRENGTH AND STANDING WITH FULL WEIGHT BEARING CAPABILITIES PER [facility] DISCHARGE INSTRUCTION ] Future Scheduled Test [...] CARE WILL BE ESTABLISHED THAT MEETS PATIENT'S ALF NEEDS AND INCLUDES PATIENT GOAL FOR HOME [...] HOME PROGRAM TO IMPROVE FUNCTIONAL MOBILITY BY [id number] PATIENT/CAREGIVER WILL DEMONSTRATE IMPROVED BED MOBILITY TECHNIQUES TO IMPROVE BED MOBILITY BY [id number] PATIENT/CAREGIVER WILL DEMONSTRATE SAFE TRANSFERS USING APPROPRIATE ASSISTIVE DEVICE, BODY MECHANICS AND EQUIPMENT TO IMPROVE FUNCTIONAL TRANSFERS WITH ASSISTANCE BY [id number] PATIENT/CAREGIVER WILL DEMONSTRATE/VERBALIZE UNDERSTANDING OF RECOMMENDATIONS TO INCREASE SAFETY IN THE HOME AND FALL PREVENTION TO IMPROVE FUNCTION. ONGOING Goal Provider Goal - CHANGES IN PATIENTS DEPRESSIVE SYMPTOMS WILL BE IDENTIFIED AND MD PROMPTLY NOTIFIED TO MINIMIZE ASSOCIATED RISKS BY THE END OF THE CERTIFICATION PERIOD. Reason for Visit MODERATE ASSIST WITH TRANSFER/AMBULATION/ADLS Encounters Start Date/Time End Date/Time Encounter Type Admission Type Attending [facility] Care Department Encounter ID Discharge Date Discharge Status Discharge Condition Discharge Reason Percent Goals Met 2022-07-05 00:00:00 2023-04-30 00:00:00 Outpatient RECERTIFIC ATION DIMITRYLOPEZ LEONOR [facility] [id number] 2023-04-30 00:00:00 DISCHARGE TO HOME OR SELF CARE MODERATE ASSIST WITH TRANSFER/A MBULATION/ ADLS MAX POTENTIAL MET ( ONLY) 80.65
== END ==
LOC: HO.HUSV 13:29
PROVIDERS: PCP Internal Medicine Medical Oncology; Visit Provider Nurse Practitioner Family
DX: R97.20 Elevated prostate specific antigen [PSA] (principal); R35.0 Frequency of micturition; N48.89 Other specified disorders of penis
CPT/HCPCS: 99309

== ENCOUNTER 2024-07-08 06:18 | Outpatient (REF) | payer MEDICARE, SELFPAY ==
--- OUTSIDE RECORDS SUMMARY | 2024-07-08 06:21 | XMS_ITS | Clinical Summary ---
Author Organization Unknown Care Team Providers Care Orthodontist Vice President Name Role Phone WANDA OLMOS, [place] Unavailable Unavailable MOISE RN, AARTI Unavailable Unavailable CEDRICK OT, DEEJAY Unavailable Unavailabl ileana MESSINA OT, THERAPY CRYPTOLOGICAL TECHNICIAN, DANDY Unavailabl e Unavailable LENIN PT, LEONOR Unavailable Unavailable CANDIE LOREDO, GISELA Unavailable Unavailable SHARONDA SKATESMAN, ENZO Unavailable Unavailable Payers Payer Name Policy Type Policy Number Effective Date Expira tion Date [place] - [place] [id number] [facility] [id number] Problems Condition Name Condition Details Condition Category Status Onset Date Resolution Date Last Treatment Date Treating Clinician Comments PRESSURE ULCER OF LEFT BUTTOCK, STAGE 2 Active 6-20 00:00: 00 PAROXYSMAL ATRIAL FIBRILLATION Active 08-29 00:00: 00 HYPERLIPIDEM IA, UNSPECIFIED Active 08-29 00:00: 00 ATHSCL HEART DISEASE OF [place] CORONARY ARTERY W/O ANG PCTRS Active 08-29 00:00: 00 CHRONIC TOTAL OCCLUSION OF CORONARY ARTERY Active 02-25 00:00: 00 DEFICIENCY OF OTHER SPECIFIED B GROUP VITAMINS Active - 00:00: 00 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 CHR KDNY Active -16 00:00: 00 CHRONIC SYSTOLIC (CONGESTIVE) HEART FAILURE [...] PROSTHETIC HEART VALVE Active 08-29 00:00: 00 [facility] (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 Active 02-25 00:00: [...] 325 mg capsule 2021-07 00:00: 00 Yes [id number] 2 capsule DAILY 2 capsule DAILY (route: oral) Med Classific ation: Analgesic , Anti-infl ammatory or Antipyret ic allopurinol 300 mg tablet 2021-07 00:00: 00 08-29 23:59 :00 No [id number] 1 tablet DAILY 1 tablet DAILY (route: oral) Med Classific ation: Gout and Hyperuric emia Therapy doxycycline hyclate 100 mg capsule 2021-07 00:00: 00 Yes [id number] 1 capsule 2 TIMES DAILY 1 capsule 2 TIMES DAILY (route: oral) Med Classific ation: Anti-Infe ctive Agents gabapentin 100 mg capsule 2021-07 00:00: 00 10-22 23:59 :00 No [id number] 1 capsule 2 TIMES DAILY 1 capsule 2 TIMES DAILY (route: oral) Med Classific ation: Central Nervous System Agents multivitami n tablet 2021-07 00:00: 00 Yes [id number] 1 tablet DAILY 1 tablet DAILY (route: oral) Med Classific ation: Electroly te Balance-N utritiona l Products pantoprazol e 40 mg tablet,alvina yed release 2021-07 00:00: 00 Yes [id number] 1 tablet DAILY 1 tablet DAILY (route: oral) Med Classific ation: Gastroint estinal Therapy Agents Santyl 250 unit/gram topical ointment 2021-07 00:00: 00 08-29 23:59 :00 No [id number] 1 inch DAILY 1 inch DAILY (route: topical) Med Classific ation: Dermatolo gical simvastatin 20 mg tablet 2021-07 00:00: 00 Yes [id number] 1 tablet DAILY 1 tablet DAILY (route: oral) Med Classific ation: Cardiovas cular Therapy Agents warfarin 4 mg tablet 2021-07 00:00: 00 07-09 23:59 :00 No [id number] 1 tablet DAILY 1 tablet DAILY (route: oral) Med Classific ation: Hematolog ical Agents warfarin 5 mg tablet 2021-07 00:00: 00 07-10 23:59 :00 No [id number] 1 tablet DAILY 1 tablet DAILY (route: oral) Med Classific ation: Hematolog ical Agents warfarin 5 mg tablet 1- 00:00: 00 07-17 23:59 :00 No [id number] 5 mg DAILY 5 mg DAILY (route: oral) Med Classific ation: Hematolog ical Agents warfarin 5 mg tablet 1-05 00:00: 00 07-25 23:59 :00 No [id number] Per instruc tions DAILY Per instructio ns DAILY (route: oral) Med Classific ation: Hematolog ical Agents warfarin 5 mg tablet 1-13 00:00: 00 08-01 23:59 :00 No [id number] 5 mg DAILY 5 mg DAILY (route: oral) Med Classific ation: Hematolog ical Agents warfarin 5 mg tablet 1-19 00:00: 00 08-07 23:59 :00 No [id number] Per instruc tions DAILY Per instructio ns DAILY (route: oral) Med Classific ation: Hematolog ical Agents Jantoven 5 mg tablet 1-26 00:00: 00 08-15 23:59 :00 No [id number] 1 tablet DAILY 1 tablet DAILY (route: oral) Med Classific ation: Hematolog ical Agents warfarin 5 mg tablet 2-02 00:00: 00 08-22 23:59 :00 No [id number] Per instruc tions DAILY Per instructio ns DAILY (route: oral) Med Classific ation: Hematolog ical Agents warfarin 5 mg tablet 2-09 00:00: 00 09-05 23:59 :00 No [id number] Per instruc tions DAILY Per instructio ns DAILY (route: oral) Med Classific ation: Hematolog ical Agents metoprolol succinate ER 50 mg tablet,exte nded release 24 hr 2-21 00:00: 00 Yes [id number] 3 tablet DAILY 3 tablet DAILY (route: oral) Med Classific ation: Cardiovas cular Therapy Agents warfarin 5 mg tablet 2-23 00:00: 00 09-19 23:59 :00 No [id number] 1 tablet DAILY 1 tablet DAILY (route: oral) Med Classific ation: Hematolog ical Agents warfarin 5 mg tablet 0 3-16 00:00: 00 10-10 23:59 :00 No [id number] Per instruc tions DAILY Per instructio ns DAILY (route: oral) Med Classific ation: Hematolog ical Agents warfarin 5 mg tablet 3-30 00:00: 00 10-17 23:59 :00 No [id number] Per instruc tions DAILY Per instructio ns DAILY (route: oral) Med Classific ation: Hematolog ical Agents amoxicillin 875 mg-potassiu m clavulanate 125 mg tablet 4-10 00:00: 00 11-30 23:59 :00 No [id number] 1 tablet 2 TIMES DAILY 1 tablet 2 TIMES DAILY (route: oral) Med Classific ation: Anti-Infe ctive Agents cyanocobala min (vit B-12) 1,000 mcg tablet 10-22 00:00: 00 Yes [id number] 1 tablet DAILY 1 tablet DAILY (route: oral) Med Classific ation: Electroly te Balance-N utritiona l Products gabapentin 100 mg capsule 10-22 00:00: 00 Yes [id number] 2 capsule 2 TIMES DAILY 2 capsule 2 TIMES DAILY (route: oral) Med Classific ation: Central Nervous System Agents warfarin 5 mg tablet 10-22 00:00: 00 11-05 18:31 :00 No [id number] Per instruc tions DAILY Per instructio ns DAILY (route: oral) Med Classific ation: Hematolog ical Agents warfarin 5 mg tablet 11-05 00:00: 00 11-12 23:59 :00 No [id number] Per instruc tions DAILY Per instructio ns DAILY (route: oral) Med Classific ation: Hematolog ical Agents warfarin 5 mg tablet 11-12 00:00: 00 11-18 23:59 :00 No [id number] Per instruc tions DAILY Per instructio ns DAILY (route: oral) Med Classific ation: Hematolog ical Agents warfarin 5 mg tablet 11-19 00:00: 00 11-24 23:59 :00 No [id number] Per instruc tions DIRECTED Per instructio ns DIRECTED (route: oral) Med Classific ation: Hematolog ical Agents warfarin 5 mg tablet 12-10 00:00: 12-16 23:59 :00 No [id number] Per instruc tions DAILY Per instructio ns DAILY (route: oral) Med Classific ation: Hematolog ical Agents warfarin 5 mg tablet 06 00:00: 00 12-23 23:59 :00 No [id number] Per instruc tions DAILY Per instructio ns DAILY (route: oral) Med Classific ation: Hematolog ical Agents warfarin 5 mg tablet 6-14 00:00: 00 12-30 23:59 :00 No [id number] Per instruc tions DAILY Per instructio ns DAILY (route: oral) Med Classific ation: Hematolog ical Agents warfarin 5 mg tablet 6- 00:00: 00 01-07 00:00 :00 No [id number] 1 tablet DAILY 1 tablet DAILY (route: oral) Med Classific ation: Hematolog ical Agents warfarin 5 mg tablet 01-07 00:00: 00 01-14 23:59 :00 No [id number] Per instruc tions DAILY Per instructio ns DAILY (route: oral) Med Classific ation: Hematolog ical Agents warfarin 5 mg tablet 7-11 00:00: 00 01-27 23:59 :00 No [id number] Per instruc tions DAILY Per instructio ns DAILY (route: oral) Med Classific ation: Hematolog ical Agents warfarin 5 mg tablet 7-18 00:00: 00 02-04 23:59 :00 No [id number] Per instruc tions DAILY Per instructio ns DAILY (route: oral) Med Classific ation: Hematolog ical Agents warfarin 5 mg tablet -25 00:00: 00 02-11 23:59 :00 No [id number] 1.5 tablet DAILY 1.5 tablet DAILY (route: oral) Med Classific ation: Hematolog ical Agents warfarin 5 mg tablet 8- 00:00: 00 02-18 23:59 :00 No [id number] Per instruc tions DAILY Per instructio ns DAILY (route: oral) Med Classific ation: Hematolog ical Agents Antifungal (miconazole ) 2 % topical cream 02-19 00:00: 00 Yes [id number] Per instruc tions 2 TIMES DAILY Per instructio ns 2 TIMES DAILY (route: topical) Med Classific ation: Dermatolo gical Augmentin 500 mg-125 mg tablet 02-17 00:00: 00 02-21 23:59 :00 No [id number] 1 tablet 2 TIMES DAILY 1 tablet 2 TIMES DAILY (route: oral) Med Classific ation: Anti-Infe ctive Agents warfarin 5 mg tablet 03-11 00:00: 00 03-12 23:59 :00 No [id number] 1.5 tablet DAILY 1.5 tablet DAILY (route: oral) Med Classific ation: Hematolog ical Agents warfarin 5 mg tablet 03-10 00:00: 00 03-10 23:59 :00 No [id number] 1 tablet DAILY 1 tablet DAILY (route: oral) Med Classific ation: Hematolog ical Agents warfarin 5 mg tablet 03-13 00:00: 00 03-18 23:59 :00 No [id number] Per instruc tions DAILY Per instructio ns DAILY (route: oral) Med Classific ation: Hematolog ical Agents warfarin 5 mg tablet 03-18 00:00: 00 03-24 23:59 :00 No [id number] Per instruc tions DAILY Per instructio ns DAILY (route: oral) Med Classific ation: Hematolog ical Agents warfarin 5 mg tablet 03-25 00:00: 00 03-31 23:59 :00 No [id number] Per instruc tions DAILY Per instructio ns [...] STANDING WITH FULL WEIGHT BEARING CAPABILITIES PER [facility] DISCHARGE INSTRUCTION [code = PHYSICAL THERAPIST TO EVALUATE PATIENT FOR STRENGTH AND STANDING WITH FULL WEIGHT BEARING CAPABILITIES PER [facility] DISCHARGE INSTRUCTION ] Future Scheduled [...] HOME PROGRAM TO IMPROVE FUNCTIONAL MOBILITY BY [id number] PATIENT/CAREGIVER WILL DEMONSTRATE IMPROVED BED MOBILITY TECHNIQUES TO IMPROVE BED MOBILITY BY [id number] PATIENT/CAREGIVER WILL DEMONSTRATE SAFE TRANSFERS USING APPROPRIATE ASSISTIVE DEVICE, BODY MECHANICS AND EQUIPMENT TO IMPROVE FUNCTIONAL TRANSFERS WITH ASSISTANCE BY [id number] PATIENT/CAREGIVER WILL DEMONSTRATE/VERBALIZE UNDERSTANDING OF RECOMMENDATIONS TO INCREASE SAFETY IN THE HOME AND FALL PREVENTION TO IMPROVE FUNCTION. ONGOING Goal Provider Goal - CHANGES IN PATIENTS DEPRESSIVE SYMPTOMS WILL BE IDENTIFIED AND MD PROMPTLY NOTIFIED TO MINIMIZE ASSOCIATED RISKS BY THE END OF THE CERTIFICATION PERIOD. Reason for Visit MODERATE ASSIST WITH TRANSFER/AMBULATION/ADLS Encounters Start Date/Time End Date/Time Encounter Type Admission Type Attending [facility] Care Department Encounter ID Discharge Date Discharge Status Discharge Condition Discharge Reason Percent Goals Met 2022-07-05 00:00:00 2023-04-30 00:00:00 Outpatient RECERTIFIC ATION DIMITRYLOPEZ [facility]ONOR [facility] [id number] 2023-04-30 00:00:00 DISCHARGE TO HOME OR SELF CARE MODERATE ASSIST WITH TRANSFER/A MBULATION/ ADLS MAX POTENTIAL MET ( ONLY) 80.65
--- OUTSIDE RECORDS SUMMARY | 2024-07-08 06:21 | XMS_ITS | Clinical Summary ---
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 TS Active 11-18 00:00: 00 PERSONAL HISTORY OF COVID-19 Active 09-09 00:00: 00 PERSONAL HISTORY OF URINARY (TRACT) INFECTIONS Active 09-09 00:00: 00 PRESENCE OF PROSTHETIC HEART VALVE Active 09-09 00:00: 00 PERSONAL HISTORY OF OTHER VENOUS THROMBOSIS AND EMBOLISM Active 07-14 00:00: 00 PRESENCE OF ARTIFICIAL KNEE JOINT, BILATERAL Active 07-14 00:00: 00 LONG-TERM (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 OF INSULIN Active 11-18 00:00: [...] 100 mg tablet 11-18 00:00: 00 Yes [id number] FOR GOUT 100 mg DAILY 100 mg DAILY (route: oral) Med Classific ation: Gout and Hyperuric emia Therapy Aspirin Low Dose 81 mg tablet,alvina yed release 11-18 00:00: 00 Yes [id number] CARDIAC HEALTH 81 mg DAILY 81 mg DAILY (route: oral) Med Classific ation: Hematolog ical Agents Basaglar KwikPen U-100 Insulin 100 unit/mL (3 mL) subcutaneou s 11-18 00:00: 00 Yes [id number] TREATS DIABETES 10 unit BEDTIME 10 unit BEDTIME (route: subcutaneo us) Med Classific ation: Endocrine cephalexin 250 mg capsule 11-18 00:00: 00 Yes [id number] TREATS ENDOCARDITI S 250 mg EVERY 12 HOURS 250 mg EVERY 12 HOURS (route: oral) Med Classific ation: Anti-Infe ctive Agents Colace 100 mg capsule 11-18 00:00: 00 Yes [id number] STOOL SOFTNER 100 mg 2 TIMES DAILY 100 mg 2 TIMES DAILY (route: oral) Med Classific ation: Gastroint estinal Therapy Agents Milk of Magnesia 400 mg/5 mL oral suspension 11-18 00:00: 00 Yes [id number] TREATS CONSTIPATIO N 30 mL DAILY 30 mL DAILY (route: oral) Med Classific ation: Gastroint estinal Therapy Agents Probiotic 10 billion cell capsule 11-18 00:00: 00 Yes [id number] SUPPLEMENT 1 capsule DAILY 1 capsule DAILY (route: oral) Med Classific ation: Gastroint estinal Therapy Agents torsemide 20 mg tablet 11-18 00:00: 00 Yes [id number] DIURETIC 40 mg DAILY 40 mg DAILY (route: oral) Med Classific ation: Cardiovas cular Therapy Agents Tylenol Arthritis Pain 650 mg tablet,exte nded release 11-18 00:00: 00 Yes [id number] FOR PAIN 650 mg EVERY 4 HOURS 650 mg EVERY 4 HOURS (route: oral) Med Classific ation: Analgesic , Anti-infl ammatory or Antipyret ic warfarin 6 mg tablet 11-18 00:00: 00 Yes [id number] BLOOD THINNER 6 mg DAILY 6 mg DAILY (route: oral) Med Classific ation: Hematolog ical Agents Zocor 20 mg tablet 11-18 00:00: 00 Yes [id number] TREATS HIGH CHOLESTEROL 40 mg BEDTIME 40 mg BEDTIME (route: oral) Med Classific ation: Cardiovas cular Therapy Agents insulin lispro (U-100) 100 unit/mL subcutaneou s pen 11-18 00:00: 00 Yes [id number] TREATS DIABETES 2 unit NEEDED 2 unit NEEDED (route: subcutaneo ) Med Classific ation: Endocrine insulin lispro (U-100) 100 unit/mL subcutaneou s pen 11-18 00:00: 00 Yes [id number] TREATS DIABETES 4 unit DIRECTED 4 unit DIRECTED (route: subcutaneo us) Med Classific ation: Endocrine insulin lispro (U-100) 100 unit/mL subcutaneou s pen 11-18 00:00: 00 Yes [id number] TREATS DIABETES 6 unit DIRECTED 6 unit DIRECTED (route: subcutaneo us) Med Classific ation: Endocrine insulin lispro (U-100) 100 unit/mL subcutaneou s pen 11-18 00:00: 00 Yes [id number] TREATS DIABETES 8 unit DIRECTED 8 unit DIRECTED (route: subcutaneo us) Med Classific ation: Endocrine insulin lispro (U-100) 100 unit/mL subcutaneou s pen 11-18 00:00: 00 Yes [id number] TREATS DIABETES 10 unit DIRECTED 10 unit [...] EMERGENCY SERVICES CALL [facility] NURSE TO KEEP MOVING WORKER SYMPTOM REPORT FOR VISIBLE REFERENCE NOTIFY SKILLED [...] EMERGENCY SERVICES CALL [facility] NURSE TO KEEP MOVING WORKER SYMPTOM REPORT FOR VISIBLE REFERENCE NOTIFY SKILLED [...] PATIENT REPORTED WEIGHT AND NOTIFY CM / SOCIETY REPORTER FOR MD NOTIFICATION FOR SIGNS AND SYMPTOMS [...] PATIENT REPORTED WEIGHT AND NOTIFY CM / SOCIETY REPORTER FOR MD NOTIFICATION FOR SIGNS AND SYMPTOMS [...] End Date/Time Encounter Type Admission Type Attending [facility] Care Department Encounter ID Discharge Date Discharge Status Discharge Condition Discharge Reason Percent Goals Met 2021-11-18 00:00:00 2021-11-26 00:00:00 Outpatient NEW ADMISSION LILO JAY [facility] [id number] 2021-11-26 00:00:00 DISCHARGE TO HOME OR SELF CARE INDEPENDEN T IN THE HOME HH OR PAL- GOALS MET 37.50
--- OUTSIDE RECORDS SUMMARY | 2024-07-08 06:21 | XMS_ITS | Clinical Summary ---
Author Organization Unknown Care Team Providers Care Paedodontist Name Role Phone WANDA OLMOS, [place] Unavailable Unavailable MOISE RN, AARTI Unavailable Unavailable CEDRICK OT, DEEJAY Unavailable Unavailabl ileana MESSINA OT, THERAPY CURB SETTER, DANDY Unavailabl e Unavailable LENIN PT, LEONOR Unavailable Unavailable CANDIE LOREDO, GISELA Unavailable Unavailable SHARONDA CLINICAL SALES CONSULTANT, ENZO Unavailable Unavailable Payers Payer Name Policy Type Policy Number Effective Date Expira tion Date MEDICARE - NGS [place]/PR - PD [id number] [facility] [id number] Problems Condition Name Condition Details Condition Category Status Onset Date Resolution Date Last Treatment Date Treating Clinician Comments PRESSURE ULCER OF LEFT BUTTOCK, STAGE 2 Active 6-20 00:00: 00 PAROXYSMAL ATRIAL FIBRILLATION Active 08-29 00:00: 00 HYPERLIPIDEM IA, UNSPECIFIED Active 08-29 00:00: 00 ATHSCL HEART DISEASE OF [place] CORONARY ARTERY W/O ANG PCTRS Active 08-29 [...] PROSTHETIC HEART VALVE Active 08-29 00:00: 00 SENIOR CARE (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 Active 02-25 00:00: [...] 325 mg capsule 2021-07 00:00: 00 Yes [id number] 2 capsule DAILY 2 capsule DAILY (route: oral) Med Classific ation: Analgesic , Anti-infl ammatory or Antipyret ic allopurinol 300 mg tablet 2021-07 00:00: 00 08-29 23:59 :00 No [id number] 1 tablet DAILY 1 tablet DAILY (route: oral) Med Classific ation: Gout and Hyperuric emia Therapy doxycycline hyclate 100 mg capsule 2021-07 00:00: 00 Yes [id number] 1 capsule 2 TIMES DAILY 1 capsule 2 TIMES DAILY (route: oral) Med Classific ation: Anti-Infe ctive Agents gabapentin 100 mg capsule 2021-07 00:00: 00 10-22 23:59 :00 No [id number] 1 capsule 2 TIMES DAILY 1 capsule 2 TIMES DAILY (route: oral) Med Classific ation: Central Nervous System Agents multivitami n tablet 2021-07 00:00: 00 Yes [id number] 1 tablet DAILY 1 tablet DAILY (route: oral) Med Classific ation: Electroly te Balance-N utritiona l Products pantoprazol e 40 mg tablet,alvina yed release 2021-07 00:00: 00 Yes [id number] 1 tablet DAILY 1 tablet DAILY (route: oral) Med Classific ation: Gastroint estinal Therapy Agents Santyl 250 unit/gram topical ointment 2021-07 00:00: 00 08-29 23:59 :00 No [id number] 1 inch DAILY 1 inch DAILY (route: topical) Med Classific ation: Dermatolo gical simvastatin 20 mg tablet 2021-07 00:00: 00 Yes [id number] 1 tablet DAILY 1 tablet DAILY (route: oral) Med Classific ation: Cardiovas cular Therapy Agents warfarin 4 mg tablet 2021-07 00:00: 00 07-09 23:59 :00 No [id number] 1 tablet DAILY 1 tablet DAILY (route: oral) Med Classific ation: Hematolog ical Agents warfarin 5 mg tablet 2021-07 00:00: 00 07-10 23:59 :00 No [id number] 1 tablet DAILY 1 tablet DAILY (route: oral) Med Classific ation: Hematolog ical Agents warfarin 5 mg tablet 1- 00:00: 00 07-17 23:59 :00 No [id number] 5 mg DAILY 5 mg DAILY (route: oral) Med Classific ation: Hematolog ical Agents warfarin 5 mg tablet 1-05 00:00: 00 07-25 23:59 :00 No [id number] Per instruc tions DAILY Per instructio ns DAILY (route: oral) Med Classific ation: Hematolog ical Agents warfarin 5 mg tablet 1-13 00:00: 00 08-01 23:59 :00 No [id number] 5 mg DAILY 5 mg DAILY (route: oral) Med Classific ation: Hematolog ical Agents warfarin 5 mg tablet 1-19 00:00: 00 08-07 23:59 :00 No [id number] Per instruc tions DAILY Per instructio ns DAILY (route: oral) Med Classific ation: Hematolog ical Agents Jantoven 5 mg tablet 1-26 00:00: 00 08-15 23:59 :00 No [id number] 1 tablet DAILY 1 tablet DAILY (route: oral) Med Classific ation: Hematolog ical Agents warfarin 5 mg tablet 2-02 00:00: 00 08-22 23:59 :00 No [id number] Per instruc tions DAILY Per instructio ns DAILY (route: oral) Med Classific ation: Hematolog ical Agents warfarin 5 mg tablet 2-09 00:00: 00 09-05 23:59 :00 No [id number] Per instruc tions DAILY Per instructio ns DAILY (route: oral) Med Classific ation: Hematolog ical Agents metoprolol succinate ER 50 mg tablet,exte nded release 24 hr 2-21 00:00: 00 Yes [id number] 3 tablet DAILY 3 tablet DAILY (route: oral) Med Classific ation: Cardiovas cular Therapy Agents warfarin 5 mg tablet 2-23 00:00: 00 09-19 23:59 :00 No [id number] 1 tablet DAILY 1 tablet DAILY (route: oral) Med Classific ation: Hematolog ical Agents warfarin 5 mg tablet 0 3-16 00:00: 00 10-10 23:59 :00 No [id number] Per instruc tions DAILY Per instructio ns DAILY (route: oral) Med Classific ation: Hematolog ical Agents warfarin 5 mg tablet 3-30 00:00: 00 10-17 23:59 :00 No [id number] Per instruc tions DAILY Per instructio ns DAILY (route: oral) Med Classific ation: Hematolog ical Agents amoxicillin 875 mg-potassiu m clavulanate 125 mg tablet 4-10 00:00: 00 11-30 23:59 :00 No [id number] 1 tablet 2 TIMES DAILY 1 tablet 2 TIMES DAILY (route: oral) Med Classific ation: Anti-Infe ctive Agents cyanocobala min (vit B-12) 1,000 mcg tablet 10-22 00:00: 00 Yes [id number] 1 tablet DAILY 1 tablet DAILY (route: oral) Med Classific ation: Electroly te Balance-N utritiona l Products gabapentin 100 mg capsule 10-22 00:00: 00 Yes [id number] 2 capsule 2 TIMES DAILY 2 capsule 2 TIMES DAILY (route: oral) Med Classific ation: Central Nervous System Agents warfarin 5 mg tablet 10-22 00:00: 00 11-05 18:31 :00 No [id number] Per instruc tions DAILY Per instructio ns DAILY (route: oral) Med Classific ation: Hematolog ical Agents warfarin 5 mg tablet 11-05 00:00: 00 11-12 23:59 :00 No [id number] Per instruc tions DAILY Per instructio ns DAILY (route: oral) Med Classific ation: Hematolog ical Agents warfarin 5 mg tablet 11-12 00:00: 00 11-18 23:59 :00 No [id number] Per instruc tions DAILY Per instructio ns DAILY (route: oral) Med Classific ation: Hematolog ical Agents warfarin 5 mg tablet 11-19 00:00: 00 11-24 23:59 :00 No [id number] Per instruc tions DIRECTED Per instructio ns DIRECTED (route: oral) Med Classific ation: Hematolog ical Agents warfarin 5 mg tablet 12-10 00:00: 12-16 23:59 :00 No [id number] Per instruc tions DAILY Per instructio ns DAILY (route: oral) Med Classific ation: Hematolog ical Agents warfarin 5 mg tablet 06 00:00: 00 12-23 23:59 :00 No [id number] Per instruc tions DAILY Per instructio ns DAILY (route: oral) Med Classific ation: Hematolog ical Agents warfarin 5 mg tablet 6-14 00:00: 00 12-30 23:59 :00 No [id number] Per instruc tions DAILY Per instructio ns DAILY (route: oral) Med Classific ation: Hematolog ical Agents warfarin 5 mg tablet 6- 00:00: 00 01-07 00:00 :00 No [id number] 1 tablet DAILY 1 tablet DAILY (route: oral) Med Classific ation: Hematolog ical Agents warfarin 5 mg tablet 01-07 00:00: 00 01-14 23:59 :00 No [id number] Per instruc tions DAILY Per instructio ns DAILY (route: oral) Med Classific ation: Hematolog ical Agents warfarin 5 mg tablet 7-11 00:00: 00 01-27 23:59 :00 No [id number] Per instruc tions DAILY Per instructio ns DAILY (route: oral) Med Classific ation: Hematolog ical Agents warfarin 5 mg tablet 7-18 00:00: 00 02-04 23:59 :00 No [id number] Per instruc tions DAILY Per instructio ns DAILY (route: oral) Med Classific ation: Hematolog ical Agents warfarin 5 mg tablet -25 00:00: 00 02-11 23:59 :00 No [id number] 1.5 tablet DAILY 1.5 tablet DAILY (route: oral) Med Classific ation: Hematolog ical Agents warfarin 5 mg tablet 8- 00:00: 00 02-18 23:59 :00 No [id number] Per instruc tions DAILY Per instructio ns DAILY (route: oral) Med Classific ation: Hematolog ical Agents Antifungal (miconazole ) 2 % topical cream 02-19 00:00: 00 Yes [id number] Per instruc tions 2 TIMES DAILY Per instructio ns 2 TIMES DAILY (route: topical) Med Classific ation: Dermatolo gical Augmentin 500 mg-125 mg tablet 02-17 00:00: 00 02-21 23:59 :00 No [id number] 1 tablet 2 TIMES DAILY 1 tablet 2 TIMES DAILY (route: oral) Med Classific ation: Anti-Infe ctive Agents warfarin 5 mg tablet 03-11 00:00: 00 03-12 23:59 :00 No [id number] 1.5 tablet DAILY 1.5 tablet DAILY (route: oral) Med Classific ation: Hematolog ical Agents warfarin 5 mg tablet 03-10 00:00: 00 03-10 23:59 :00 No [id number] 1 tablet DAILY 1 tablet DAILY (route: oral) Med Classific ation: Hematolog ical Agents warfarin 5 mg tablet 03-13 00:00: 00 03-18 23:59 :00 No [id number] Per instruc tions DAILY Per instructio ns DAILY (route: oral) Med Classific ation: Hematolog ical Agents warfarin 5 mg tablet 03-18 00:00: 00 03-24 23:59 :00 No [id number] Per instruc tions DAILY Per instructio ns DAILY (route: oral) Med Classific ation: Hematolog ical Agents warfarin 5 mg tablet 03-25 00:00: 00 03-31 23:59 :00 No [id number] Per instruc tions DAILY Per instructio ns [...] STANDING WITH FULL WEIGHT BEARING CAPABILITIES PER [facility] DISCHARGE INSTRUCTION [code = PHYSICAL THERAPIST TO EVALUATE PATIENT FOR STRENGTH AND STANDING WITH FULL WEIGHT BEARING CAPABILITIES PER [facility] DISCHARGE INSTRUCTION ] Future Scheduled Test [...] CARE WILL BE ESTABLISHED THAT MEETS PATIENT'S FPC NEEDS AND INCLUDES PATIENT GOAL FOR HOME [...] HOME PROGRAM TO IMPROVE FUNCTIONAL MOBILITY BY [id number] PATIENT/CAREGIVER WILL DEMONSTRATE IMPROVED BED MOBILITY TECHNIQUES TO IMPROVE BED MOBILITY BY [id number] PATIENT/CAREGIVER WILL DEMONSTRATE SAFE TRANSFERS USING APPROPRIATE ASSISTIVE DEVICE, BODY MECHANICS AND EQUIPMENT TO IMPROVE FUNCTIONAL TRANSFERS WITH ASSISTANCE BY [id number] PATIENT/CAREGIVER WILL DEMONSTRATE/VERBALIZE UNDERSTANDING OF RECOMMENDATIONS TO INCREASE SAFETY IN THE HOME AND FALL PREVENTION TO IMPROVE FUNCTION. ONGOING Goal Provider Goal - CHANGES IN PATIENTS DEPRESSIVE SYMPTOMS WILL BE IDENTIFIED AND MD PROMPTLY NOTIFIED TO MINIMIZE ASSOCIATED RISKS BY THE END OF THE CERTIFICATION PERIOD. Reason for Visit MODERATE ASSIST WITH TRANSFER/AMBULATION/ADLS Encounters Start Date/Time End Date/Time Encounter Type Admission Type Attending [facility] Care Department Encounter ID Discharge Date Discharge Status Discharge Condition Discharge Reason Percent Goals Met 2022-07-05 00:00:00 2023-04-30 00:00:00 Outpatient RECERTIFIC ATION DIMITRYLOPEZ LEONOR [facility] [id number] 2023-04-30 00:00:00 DISCHARGE TO HOME OR SELF CARE MODERATE ASSIST WITH TRANSFER/A MBULATION/ ADLS MAX POTENTIAL MET ( ONLY) 80.65
[2024-07-08 07:21] LABS: INTERNATIONAL NORM RATIO 2.1 (0.9-1.1); Prothrombin Time 24.8 SEC (10.9-12.4)
== END 2024-07-08 06:19 | disposition home or self-care (01) ==
LOC: HO.HSH2E 06:18
PROVIDERS: Visit Provider Nurse Practitioner
DX: Z95.2 Presence of prosthetic heart valve (principal)
CPT/HCPCS: 36415; 85610

== ENCOUNTER 2024-07-16 06:20 | Outpatient (REF) | payer MEDICARE, SELFPAY ==
[2024-07-16 07:10] LABS: Anion Gap 11 (12-20); Blood Urea Nitrogen 70 mg/dL (9-16); Calcium 9.8 mg/dL (8.4-10.2); Carbon Dioxide 23 mmol/L (22-29); Chloride 110 mmol/L (96-108); Estimated Glomerular Filt Rate 28; Glucose Random 85 mg/dL (60-115); Potassium 4.4 mmol/L (3.3-5.1); Sodium 140 mmol/L (135-145)
[2024-07-16 07:47] LABS: PSA,Total (Free>4and<10) 12.07 ng/mL (0.00-4.00)
== END 2024-07-16 06:21 | disposition home or self-care (01) ==
LOC: HO.HSH2E 06:20
PROVIDERS: Visit Provider Internal Medicine Endocrinology, Diabetes & Metabolism
DX: Z12.5 Encounter for screening for malignant neoplasm of prostate (principal); E83.52 Hypercalcemia
CPT/HCPCS: 36415; 80048; 84153

== ENCOUNTER 2024-07-22 06:30 | Outpatient (REF) | payer MEDICARE, SELFPAY ==
--- OUTSIDE RECORDS SUMMARY | 2024-07-22 06:34 | XMS_ITS | Clinical Summary ---
Author Organization Unknown Care Team Providers Care Director Immunology Name Role Phone WANDA OLMOS, [place] Unavailable Unavailable MOISE RN, AARTI Unavailable Unavailable CEDRICK OT, DEEJAY Unavailable Unavailabl ileana MESSINA OT, THERAPY SEE SUPERVISOR, DANDY Unavailabl e Unavailable LENIN PT, LEONOR Unavailable Unavailable CANDIE LOREDO, GISELA Unavailable Unavailable SHARONDA YOUTH TEACHER, ENZO Unavailable Unavailable Payers Payer Name Policy Type Policy Number Effective Date Expira tion Date MEDICARE - [place] - [place] [id number] [facility] [id number] Problems Condition Name Condition Details Condition Category Status Onset Date Resolution Date Last Treatment Date Treating Clinician Comments PRESSURE ULCER OF LEFT BUTTOCK, STAGE 2 Active 6-20 00:00: 00 PAROXYSMAL ATRIAL FIBRILLATION Active 08-29 00:00: 00 HYPERLIPIDEM IA, UNSPECIFIED Active 08-29 00:00: 00 ATHSCL HEART DISEASE OF [place] CORONARY ARTERY W/O ANG PCTRS Active 08-29 [...] PROSTHETIC HEART VALVE Active 08-29 00:00: 00 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 OFF (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 Active 02-25 00:00: [...] 325 mg capsule 2021-07 00:00: 00 Yes [id number] 2 capsule DAILY 2 capsule DAILY (route: oral) Med Classific ation: Analgesic , Anti-infl ammatory or Antipyret ic allopurinol 300 mg tablet 2021-07 00:00: 00 08-29 23:59 :00 No [id number] 1 tablet DAILY 1 tablet DAILY (route: oral) Med Classific ation: Gout and Hyperuric emia Therapy doxycycline hyclate 100 mg capsule 2021-07 00:00: 00 Yes [id number] 1 capsule 2 TIMES DAILY 1 capsule 2 TIMES DAILY (route: oral) Med Classific ation: Anti-Infe ctive Agents gabapentin 100 mg capsule 2021-07 00:00: 00 10-22 23:59 :00 No [id number] 1 capsule 2 TIMES DAILY 1 capsule 2 TIMES DAILY (route: oral) Med Classific ation: Central Nervous System Agents multivitami n tablet 2021-07 00:00: 00 Yes [id number] 1 tablet DAILY 1 tablet DAILY (route: oral) Med Classific ation: Electroly te Balance-N utritiona l Products pantoprazol e 40 mg tablet,alvina yed release 2021-07 00:00: 00 Yes [id number] 1 tablet DAILY 1 tablet DAILY (route: oral) Med Classific ation: Gastroint estinal Therapy Agents Santyl 250 unit/gram topical ointment 2021-07 00:00: 00 08-29 23:59 :00 No [id number] 1 inch DAILY 1 inch DAILY (route: topical) Med Classific ation: Dermatolo gical simvastatin 20 mg tablet 2021-07 00:00: 00 Yes [id number] 1 tablet DAILY 1 tablet DAILY (route: oral) Med Classific ation: Cardiovas cular Therapy Agents warfarin 4 mg tablet 2021-07 00:00: 00 07-09 23:59 :00 No [id number] 1 tablet DAILY 1 tablet DAILY (route: oral) Med Classific ation: Hematolog ical Agents warfarin 5 mg tablet 2021-07 00:00: 00 07-10 23:59 :00 No [id number] 1 tablet DAILY 1 tablet DAILY (route: oral) Med Classific ation: Hematolog ical Agents warfarin 5 mg tablet 1- 00:00: 00 07-17 23:59 :00 No [id number] 5 mg DAILY 5 mg DAILY (route: oral) Med Classific ation: Hematolog ical Agents warfarin 5 mg tablet 1-05 00:00: 00 07-25 23:59 :00 No [id number] Per instruc tions DAILY Per instructio ns DAILY (route: oral) Med Classific ation: Hematolog ical Agents warfarin 5 mg tablet 1-13 00:00: 00 08-01 23:59 :00 No [id number] 5 mg DAILY 5 mg DAILY (route: oral) Med Classific ation: Hematolog ical Agents warfarin 5 mg tablet 1-19 00:00: 00 08-07 23:59 :00 No [id number] Per instruc tions DAILY Per instructio ns DAILY (route: oral) Med Classific ation: Hematolog ical Agents Jantoven 5 mg tablet 1-26 00:00: 00 08-15 23:59 :00 No [id number] 1 tablet DAILY 1 tablet DAILY (route: oral) Med Classific ation: Hematolog ical Agents warfarin 5 mg tablet 2-02 00:00: 00 08-22 23:59 :00 No [id number] Per instruc tions DAILY Per instructio ns DAILY (route: oral) Med Classific ation: Hematolog ical Agents warfarin 5 mg tablet 2-09 00:00: 00 09-05 23:59 :00 No [id number] Per instruc tions DAILY Per instructio ns DAILY (route: oral) Med Classific ation: Hematolog ical Agents metoprolol succinate ER 50 mg tablet,exte nded release 24 hr 2-21 00:00: 00 Yes [id number] 3 tablet DAILY 3 tablet DAILY (route: oral) Med Classific ation: Cardiovas cular Therapy Agents warfarin 5 mg tablet 2-23 00:00: 00 09-19 23:59 :00 No [id number] 1 tablet DAILY 1 tablet DAILY (route: oral) Med Classific ation: Hematolog ical Agents warfarin 5 mg tablet 0 3-16 00:00: 00 10-10 23:59 :00 No [id number] Per instruc tions DAILY Per instructio ns DAILY (route: oral) Med Classific ation: Hematolog ical Agents warfarin 5 mg tablet 3-30 00:00: 00 10-17 23:59 :00 No [id number] Per instruc tions DAILY Per instructio ns DAILY (route: oral) Med Classific ation: Hematolog ical Agents amoxicillin 875 mg-potassiu m clavulanate 125 mg tablet 4-10 00:00: 00 11-30 23:59 :00 No [id number] 1 tablet 2 TIMES DAILY 1 tablet 2 TIMES DAILY (route: oral) Med Classific ation: Anti-Infe ctive Agents cyanocobala min (vit B-12) 1,000 mcg tablet 10-22 00:00: 00 Yes [id number] 1 tablet DAILY 1 tablet DAILY (route: oral) Med Classific ation: Electroly te Balance-N utritiona l Products gabapentin 100 mg capsule 10-22 00:00: 00 Yes [id number] 2 capsule 2 TIMES DAILY 2 capsule 2 TIMES DAILY (route: oral) Med Classific ation: Central Nervous System Agents warfarin 5 mg tablet 10-22 00:00: 00 11-05 18:31 :00 No [id number] Per instruc tions DAILY Per instructio ns DAILY (route: oral) Med Classific ation: Hematolog ical Agents warfarin 5 mg tablet 11-05 00:00: 00 11-12 23:59 :00 No [id number] Per instruc tions DAILY Per instructio ns DAILY (route: oral) Med Classific ation: Hematolog ical Agents warfarin 5 mg tablet 11-12 00:00: 00 11-18 23:59 :00 No [id number] Per instruc tions DAILY Per instructio ns DAILY (route: oral) Med Classific ation: Hematolog ical Agents warfarin 5 mg tablet 11-19 00:00: 00 11-24 23:59 :00 No [id number] Per instruc tions DIRECTED Per instructio ns DIRECTED (route: oral) Med Classific ation: Hematolog ical Agents warfarin 5 mg tablet 12-10 00:00: 12-16 23:59 :00 No [id number] Per instruc tions DAILY Per instructio ns DAILY (route: oral) Med Classific ation: Hematolog ical Agents warfarin 5 mg tablet 06 00:00: 00 12-23 23:59 :00 No [id number] Per instruc tions DAILY Per instructio ns DAILY (route: oral) Med Classific ation: Hematolog ical Agents warfarin 5 mg tablet 6-14 00:00: 00 12-30 23:59 :00 No [id number] Per instruc tions DAILY Per instructio ns DAILY (route: oral) Med Classific ation: Hematolog ical Agents warfarin 5 mg tablet 6- 00:00: 00 01-07 00:00 :00 No [id number] 1 tablet DAILY 1 tablet DAILY (route: oral) Med Classific ation: Hematolog ical Agents warfarin 5 mg tablet 01-07 00:00: 00 01-14 23:59 :00 No [id number] Per instruc tions DAILY Per instructio ns DAILY (route: oral) Med Classific ation: Hematolog ical Agents warfarin 5 mg tablet 7-11 00:00: 00 01-27 23:59 :00 No [id number] Per instruc tions DAILY Per instructio ns DAILY (route: oral) Med Classific ation: Hematolog ical Agents warfarin 5 mg tablet 7-18 00:00: 00 02-04 23:59 :00 No [id number] Per instruc tions DAILY Per instructio ns DAILY (route: oral) Med Classific ation: Hematolog ical Agents warfarin 5 mg tablet -25 00:00: 00 02-11 23:59 :00 No [id number] 1.5 tablet DAILY 1.5 tablet DAILY (route: oral) Med Classific ation: Hematolog ical Agents warfarin 5 mg tablet 8- 00:00: 00 02-18 23:59 :00 No [id number] Per instruc tions DAILY Per instructio ns DAILY (route: oral) Med Classific ation: Hematolog ical Agents Antifungal (miconazole ) 2 % topical cream 02-19 00:00: 00 Yes [id number] Per instruc tions 2 TIMES DAILY Per instructio ns 2 TIMES DAILY (route: topical) Med Classific ation: Dermatolo gical Augmentin 500 mg-125 mg tablet 02-17 00:00: 00 02-21 23:59 :00 No [id number] 1 tablet 2 TIMES DAILY 1 tablet 2 TIMES DAILY (route: oral) Med Classific ation: Anti-Infe ctive Agents warfarin 5 mg tablet 03-11 00:00: 00 03-12 23:59 :00 No [id number] 1.5 tablet DAILY 1.5 tablet DAILY (route: oral) Med Classific ation: Hematolog ical Agents warfarin 5 mg tablet 03-10 00:00: 00 03-10 23:59 :00 No [id number] 1 tablet DAILY 1 tablet DAILY (route: oral) Med Classific ation: Hematolog ical Agents warfarin 5 mg tablet 03-13 00:00: 00 03-18 23:59 :00 No [id number] Per instruc tions DAILY Per instructio ns DAILY (route: oral) Med Classific ation: Hematolog ical Agents warfarin 5 mg tablet 03-18 00:00: 00 03-24 23:59 :00 No [id number] Per instruc tions DAILY Per instructio ns DAILY (route: oral) Med Classific ation: Hematolog ical Agents warfarin 5 mg tablet 03-25 00:00: 00 03-31 23:59 :00 No [id number] Per instruc tions DAILY Per instructio ns [...] STANDING WITH FULL WEIGHT BEARING CAPABILITIES PER [facility]GE [facility] [code = PHYSICAL THERAPIST TO EVALUATE PATIENT FOR STRENGTH AND STANDING WITH FULL WEIGHT BEARING CAPABILITIES PER [facility] DISCHARGE INSTRUCTION ] Future Scheduled Test [...] CARE WILL BE ESTABLISHED THAT MEETS PATIENT'S HALF-WAY NEEDS AND INCLUDES PATIENT GOAL FOR HOME [...] HOME PROGRAM TO IMPROVE FUNCTIONAL MOBILITY BY [id number] PATIENT/CAREGIVER WILL DEMONSTRATE IMPROVED BED MOBILITY TECHNIQUES TO IMPROVE BED MOBILITY BY [id number] PATIENT/CAREGIVER WILL DEMONSTRATE SAFE TRANSFERS USING APPROPRIATE ASSISTIVE DEVICE, BODY MECHANICS AND EQUIPMENT TO IMPROVE FUNCTIONAL TRANSFERS WITH ASSISTANCE BY [id number] PATIENT/CAREGIVER WILL DEMONSTRATE/VERBALIZE UNDERSTANDING OF RECOMMENDATIONS TO INCREASE SAFETY IN THE HOME AND FALL PREVENTION TO IMPROVE FUNCTION. ONGOING Goal Provider Goal - CHANGES IN PATIENTS DEPRESSIVE SYMPTOMS WILL BE IDENTIFIED AND MD PROMPTLY NOTIFIED TO MINIMIZE ASSOCIATED RISKS BY THE END OF THE CERTIFICATION PERIOD. Reason for Visit MODERATE ASSIST WITH TRANSFER/AMBULATION/ADLS Encounters Start Date/Time End Date/Time Encounter Type Admission Type Attending [facility] Care Department Encounter ID Discharge Date Discharge Status Discharge Condition Discharge Reason Percent Goals Met 2022-07-05 00:00:00 2023-04-30 00:00:00 Outpatient RECERTIFIC ATION DIMITRYLOPEZ LEONOR [facility] [id number] 2023-04-30 00:00:00 DISCHARGE TO HOME OR SELF CARE MODERATE ASSIST WITH TRANSFER/A MBULATION/ ADLS MAX POTENTIAL MET ( ONLY) 80.65
--- OUTSIDE RECORDS SUMMARY | 2024-07-22 06:34 | XMS_ITS | Clinical Summary ---
Author Organization Unknown Care Team Providers Care Senior Branch Manager Name Role Phone PHIL OLMOS, CALLIE Unavailable Unavailable MISTY RN, LILO Unavailable Unavailable NAPOLILARISSA OT, TRINIDAD Unavailable Unavailable DOUG PT, JOE Unavailable Unavailable Payers Payer Name Policy Type Policy Number Effective Date Expira tion Date MEDICARE.NGS.PDGM [id number] Problems Condition Name Condition Details Condition Category [...] DRUG LEVEL MONITORING Active 11-18 00:00: 00 USP (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 OF ANTICOAGULAN TS Active 11-18 00:00: 00 PERSONAL HISTORY OF COVID-19 Active 09-09 00:00: 00 PERSONAL HISTORY OF URINARY (TRACT) INFECTIONS Active 09-09 00:00: 00 PRESENCE OF PROSTHETIC HEART VALVE Active 09-09 00:00: 00 PERSONAL HISTORY OF OTHER VENOUS THROMBOSIS AND EMBOLISM Active 07-14 00:00: 00 PRESENCE OF ARTIFICIAL KNEE JOINT, BILATERAL Active 07-14 00:00: 00 USP (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 OF INSULIN Active 11-18 00:00: [...] 100 mg tablet 11-18 00:00: 00 Yes [id number] FOR GOUT 100 mg DAILY 100 mg DAILY (route: oral) Med Classific ation: Gout and Hyperuric emia Therapy Aspirin Low Dose 81 mg tablet,alvina yed release 11-18 00:00: 00 Yes [id number] CARDIAC HEALTH 81 mg DAILY 81 mg DAILY (route: oral) Med Classific ation: Hematolog ical Agents Basaglar KwikPen U-100 Insulin 100 unit/mL (3 mL) subcutaneou s 11-18 00:00: 00 Yes [id number] TREATS DIABETES 10 unit BEDTIME 10 unit BEDTIME (route: subcutaneo us) Med Classific ation: Endocrine cephalexin 250 mg capsule 11-18 00:00: 00 Yes [id number] TREATS ENDOCARDITI S 250 mg EVERY 12 HOURS 250 mg EVERY 12 HOURS (route: oral) Med Classific ation: Anti-Infe ctive Agents Colace 100 mg capsule 11-18 00:00: 00 Yes [id number] STOOL SOFTNER 100 mg 2 TIMES DAILY 100 mg 2 TIMES DAILY (route: oral) Med Classific ation: Gastroint estinal Therapy Agents Milk of Magnesia 400 mg/5 mL oral suspension 11-18 00:00: 00 Yes [id number] TREATS CONSTIPATIO N 30 mL DAILY 30 mL DAILY (route: oral) Med Classific ation: Gastroint estinal Therapy Agents Probiotic 10 billion cell capsule 11-18 00:00: 00 Yes [id number] SUPPLEMENT 1 capsule DAILY 1 capsule DAILY (route: oral) Med Classific ation: Gastroint estinal Therapy Agents torsemide 20 mg tablet 11-18 00:00: 00 Yes [id number] DIURETIC 40 mg DAILY 40 mg DAILY (route: oral) Med Classific ation: Cardiovas cular Therapy Agents Tylenol Arthritis Pain 650 mg tablet,exte nded release 11-18 00:00: 00 Yes [id number] FOR PAIN 650 mg EVERY 4 HOURS 650 mg EVERY 4 HOURS (route: oral) Med Classific ation: Analgesic , Anti-infl ammatory or Antipyret ic warfarin 6 mg tablet 11-18 00:00: 00 Yes [id number] BLOOD THINNER 6 mg DAILY 6 mg DAILY (route: oral) Med Classific ation: Hematolog ical Agents Zocor 20 mg tablet 11-18 00:00: 00 Yes [id number] TREATS HIGH CHOLESTEROL 40 mg BEDTIME 40 mg BEDTIME (route: oral) Med Classific ation: Cardiovas cular Therapy Agents insulin lispro (U-100) 100 unit/mL subcutaneou s pen 11-18 00:00: 00 Yes [id number] TREATS DIABETES 2 unit NEEDED 2 unit NEEDED (route: subcutaneo ) Med Classific ation: Endocrine insulin lispro (U-100) 100 unit/mL subcutaneou s pen 11-18 00:00: 00 Yes [id number] TREATS DIABETES 4 unit DIRECTED 4 unit DIRECTED (route: subcutaneo us) Med Classific ation: Endocrine insulin lispro (U-100) 100 unit/mL subcutaneou s pen 11-18 00:00: 00 Yes [id number] TREATS DIABETES 6 unit DIRECTED 6 unit DIRECTED (route: subcutaneo us) Med Classific ation: Endocrine insulin lispro (U-100) 100 unit/mL subcutaneou s pen 11-18 00:00: 00 Yes [id number] TREATS DIABETES 8 unit DIRECTED 8 unit DIRECTED (route: subcutaneo us) Med Classific ation: Endocrine insulin lispro (U-100) 100 unit/mL subcutaneou s pen 11-18 00:00: 00 Yes [id number] TREATS DIABETES 10 unit DIRECTED 10 unit [...] EMERGENCY SERVICES CALL [facility] NURSE TO KEEP POLICE SUPERINTENDENT SYMPTOM REPORT FOR VISIBLE REFERENCE NOTIFY SKILLED [...] EMERGENCY SERVICES CALL [facility] NURSE TO KEEP POLICE SUPERINTENDENT SYMPTOM REPORT FOR VISIBLE REFERENCE NOTIFY SKILLED [...] PATIENT REPORTED WEIGHT AND NOTIFY CM / REGISTERED HEALTH NURSE FOR MD NOTIFICATION FOR SIGNS AND SYMPTOMS [...] PATIENT REPORTED WEIGHT AND NOTIFY CM / REGISTERED HEALTH NURSE FOR MD NOTIFICATION FOR SIGNS AND SYMPTOMS [...] End Date/Time Encounter Type Admission Type Attending [facility] Care Department Encounter ID Discharge Date Discharge Status Discharge Condition Discharge Reason Percent Goals Met 2021-11-18 00:00:00 2021-11-26 00:00:00 Outpatient NEW ADMISSION [facility] [id number] 2021-11-26 00:00:00 DISCHARGE TO HOME OR SELF CARE INDEPENDEN T IN THE HOME HH OR PAL- GOALS MET 37.50
--- OUTSIDE RECORDS SUMMARY | 2024-07-22 06:34 | XMS_ITS | Clinical Summary ---
Author Organization Unknown Care Team Providers Care Laundry Press Operator Name Role Phone WANDA OLMOS, [place] Unavailable Unavailable MOISE RN, AARTI Unavailable Unavailable CEDRICK OT, DEEJAY Unavailable Unavailabl ileana MESSINA OT, THERAPY BARIATRIC NURSE, DANDY Unavailabl e Unavailable LENIN PT, LEONOR Unavailable Unavailable CANDIE LOREDO, GISELA Unavailable Unavailable SHARONDA DRUG INSPECTOR, ENZO Unavailable Unavailable Payers Payer Name Policy Type Policy Number Effective Date Expira tion Date MEDIC[place] - [place] [id number] [facility] [id number] Problems Condition Name Condition Details Condition Category Status Onset Date Resolution Date Last Treatment Date Treating Clinician Comments PRESSURE ULCER OF LEFT BUTTOCK, STAGE 2 Active 6-20 00:00: 00 PAROXYSMAL ATRIAL FIBRILLATION Active 08-29 00:00: 00 HYPERLIPIDEM IA, UNSPECIFIED Active 08-29 00:00: 00 ATHSCL HEART DISEASE OF [place] CORONARY ARTERY W/O ANG PCTRS Active 08-29 [...] PROSTHETIC HEART VALVE Active 08-29 00:00: 00 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 Active 02-25 00:00: [...] 325 mg capsule 2021-07 00:00: 00 Yes [id number] 2 capsule DAILY 2 capsule DAILY (route: oral) Med Classific ation: Analgesic , Anti-infl ammatory or Antipyret ic allopurinol 300 mg tablet 2021-07 00:00: 00 08-29 23:59 :00 No [id number] 1 tablet DAILY 1 tablet DAILY (route: oral) Med Classific ation: Gout and Hyperuric emia Therapy doxycycline hyclate 100 mg capsule 2021-07 00:00: 00 Yes [id number] 1 capsule 2 TIMES DAILY 1 capsule 2 TIMES DAILY (route: oral) Med Classific ation: Anti-Infe ctive Agents gabapentin 100 mg capsule 2021-07 00:00: 00 10-22 23:59 :00 No [id number] 1 capsule 2 TIMES DAILY 1 capsule 2 TIMES DAILY (route: oral) Med Classific ation: Central Nervous System Agents multivitami n tablet 2021-07 00:00: 00 Yes [id number] 1 tablet DAILY 1 tablet DAILY (route: oral) Med Classific ation: Electroly te Balance-N utritiona l Products pantoprazol e 40 mg tablet,alvina yed release 2021-07 00:00: 00 Yes [id number] 1 tablet DAILY 1 tablet DAILY (route: oral) Med Classific ation: Gastroint estinal Therapy Agents Santyl 250 unit/gram topical ointment 2021-07 00:00: 00 08-29 23:59 :00 No [id number] 1 inch DAILY 1 inch DAILY (route: topical) Med Classific ation: Dermatolo gical simvastatin 20 mg tablet 2021-07 00:00: 00 Yes [id number] 1 tablet DAILY 1 tablet DAILY (route: oral) Med Classific ation: Cardiovas cular Therapy Agents warfarin 4 mg tablet 2021-07 00:00: 00 07-09 23:59 :00 No [id number] 1 tablet DAILY 1 tablet DAILY (route: oral) Med Classific ation: Hematolog ical Agents warfarin 5 mg tablet 2021-07 00:00: 00 07-10 23:59 :00 No [id number] 1 tablet DAILY 1 tablet DAILY (route: oral) Med Classific ation: Hematolog ical Agents warfarin 5 mg tablet 1- 00:00: 00 07-17 23:59 :00 No [id number] 5 mg DAILY 5 mg DAILY (route: oral) Med Classific ation: Hematolog ical Agents warfarin 5 mg tablet 1-05 00:00: 00 07-25 23:59 :00 No [id number] Per instruc tions DAILY Per instructio ns DAILY (route: oral) Med Classific ation: Hematolog ical Agents warfarin 5 mg tablet 1-13 00:00: 00 08-01 23:59 :00 No [id number] 5 mg DAILY 5 mg DAILY (route: oral) Med Classific ation: Hematolog ical Agents warfarin 5 mg tablet 1-19 00:00: 00 08-07 23:59 :00 No [id number] Per instruc tions DAILY Per instructio ns DAILY (route: oral) Med Classific ation: Hematolog ical Agents Jantoven 5 mg tablet 1-26 00:00: 00 08-15 23:59 :00 No [id number] 1 tablet DAILY 1 tablet DAILY (route: oral) Med Classific ation: Hematolog ical Agents warfarin 5 mg tablet 2-02 00:00: 00 08-22 23:59 :00 No [id number] Per instruc tions DAILY Per instructio ns DAILY (route: oral) Med Classific ation: Hematolog ical Agents warfarin 5 mg tablet 2-09 00:00: 00 09-05 23:59 :00 No [id number] Per instruc tions DAILY Per instructio ns DAILY (route: oral) Med Classific ation: Hematolog ical Agents metoprolol succinate ER 50 mg tablet,exte nded release 24 hr 2-21 00:00: 00 Yes [id number] 3 tablet DAILY 3 tablet DAILY (route: oral) Med Classific ation: Cardiovas cular Therapy Agents warfarin 5 mg tablet 2-23 00:00: 00 09-19 23:59 :00 No [id number] 1 tablet DAILY 1 tablet DAILY (route: oral) Med Classific ation: Hematolog ical Agents warfarin 5 mg tablet 0 3-16 00:00: 00 10-10 23:59 :00 No [id number] Per instruc tions DAILY Per instructio ns DAILY (route: oral) Med Classific ation: Hematolog ical Agents warfarin 5 mg tablet 3-30 00:00: 00 10-17 23:59 :00 No [id number] Per instruc tions DAILY Per instructio ns DAILY (route: oral) Med Classific ation: Hematolog ical Agents amoxicillin 875 mg-potassiu m clavulanate 125 mg tablet 4-10 00:00: 00 11-30 23:59 :00 No [id number] 1 tablet 2 TIMES DAILY 1 tablet 2 TIMES DAILY (route: oral) Med Classific ation: Anti-Infe ctive Agents cyanocobala min (vit B-12) 1,000 mcg tablet 10-22 00:00: 00 Yes [id number] 1 tablet DAILY 1 tablet DAILY (route: oral) Med Classific ation: Electroly te Balance-N utritiona l Products gabapentin 100 mg capsule 10-22 00:00: 00 Yes [id number] 2 capsule 2 TIMES DAILY 2 capsule 2 TIMES DAILY (route: oral) Med Classific ation: Central Nervous System Agents warfarin 5 mg tablet 10-22 00:00: 00 11-05 18:31 :00 No [id number] Per instruc tions DAILY Per instructio ns DAILY (route: oral) Med Classific ation: Hematolog ical Agents warfarin 5 mg tablet 11-05 00:00: 00 11-12 23:59 :00 No [id number] Per instruc tions DAILY Per instructio ns DAILY (route: oral) Med Classific ation: Hematolog ical Agents warfarin 5 mg tablet 11-12 00:00: 00 11-18 23:59 :00 No [id number] Per instruc tions DAILY Per instructio ns DAILY (route: oral) Med Classific ation: Hematolog ical Agents warfarin 5 mg tablet 11-19 00:00: 00 11-24 23:59 :00 No [id number] Per instruc tions DIRECTED Per instructio ns DIRECTED (route: oral) Med Classific ation: Hematolog ical Agents warfarin 5 mg tablet 12-10 00:00: 12-16 23:59 :00 No [id number] Per instruc tions DAILY Per instructio ns DAILY (route: oral) Med Classific ation: Hematolog ical Agents warfarin 5 mg tablet 06 00:00: 00 12-23 23:59 :00 No [id number] Per instruc tions DAILY Per instructio ns DAILY (route: oral) Med Classific ation: Hematolog ical Agents warfarin 5 mg tablet 6-14 00:00: 00 12-30 23:59 :00 No [id number] Per instruc tions DAILY Per instructio ns DAILY (route: oral) Med Classific ation: Hematolog ical Agents warfarin 5 mg tablet 6- 00:00: 00 01-07 00:00 :00 No [id number] 1 tablet DAILY 1 tablet DAILY (route: oral) Med Classific ation: Hematolog ical Agents warfarin 5 mg tablet 01-07 00:00: 00 01-14 23:59 :00 No [id number] Per instruc tions DAILY Per instructio ns DAILY (route: oral) Med Classific ation: Hematolog ical Agents warfarin 5 mg tablet 7-11 00:00: 00 01-27 23:59 :00 No [id number] Per instruc tions DAILY Per instructio ns DAILY (route: oral) Med Classific ation: Hematolog ical Agents warfarin 5 mg tablet 7-18 00:00: 00 02-04 23:59 :00 No [id number] Per instruc tions DAILY Per instructio ns DAILY (route: oral) Med Classific ation: Hematolog ical Agents warfarin 5 mg tablet -25 00:00: 00 02-11 23:59 :00 No [id number] 1.5 tablet DAILY 1.5 tablet DAILY (route: oral) Med Classific ation: Hematolog ical Agents warfarin 5 mg tablet 8- 00:00: 00 02-18 23:59 :00 No [id number] Per instruc tions DAILY Per instructio ns DAILY (route: oral) Med Classific ation: Hematolog ical Agents Antifungal (miconazole ) 2 % topical cream 02-19 00:00: 00 Yes [id number] Per instruc tions 2 TIMES DAILY Per instructio ns 2 TIMES DAILY (route: topical) Med Classific ation: Dermatolo gical Augmentin 500 mg-125 mg tablet 02-17 00:00: 00 02-21 23:59 :00 No [id number] 1 tablet 2 TIMES DAILY 1 tablet 2 TIMES DAILY (route: oral) Med Classific ation: Anti-Infe ctive Agents warfarin 5 mg tablet 03-11 00:00: 00 03-12 23:59 :00 No [id number] 1.5 tablet DAILY 1.5 tablet DAILY (route: oral) Med Classific ation: Hematolog ical Agents warfarin 5 mg tablet 03-10 00:00: 00 03-10 23:59 :00 No [id number] 1 tablet DAILY 1 tablet DAILY (route: oral) Med Classific ation: Hematolog ical Agents warfarin 5 mg tablet 03-13 00:00: 00 03-18 23:59 :00 No [id number] Per instruc tions DAILY Per instructio ns DAILY (route: oral) Med Classific ation: Hematolog ical Agents warfarin 5 mg tablet 03-18 00:00: 00 03-24 23:59 :00 No [id number] Per instruc tions DAILY Per instructio ns DAILY (route: oral) Med Classific ation: Hematolog ical Agents warfarin 5 mg tablet 03-25 00:00: 00 03-31 23:59 :00 No [id number] Per instruc tions DAILY Per instructio ns [...] STANDING WITH FULL WEIGHT BEARING CAPABILITIES PER [facility]GE INSTRU[facility] [code = PHYSICAL THERAPIST TO EVALUATE PATIENT FOR STRENGTH AND STANDING WITH FULL WEIGHT BEARING CAPABILITIES PER [facility] DISCHARGE INSTRUCTION ] Future Scheduled [...] CARE WILL BE ESTABLISHED THAT MEETS PATIENT'S CUSTODIAL NEEDS AND INCLUDES PATIENT GOAL FOR HOME [...] HOME PROGRAM TO IMPROVE FUNCTIONAL MOBILITY BY [id number] PATIENT/CAREGIVER WILL DEMONSTRATE IMPROVED BED MOBILITY TECHNIQUES TO IMPROVE BED MOBILITY BY [id number] PATIENT/CAREGIVER WILL DEMONSTRATE SAFE TRANSFERS USING APPROPRIATE ASSISTIVE DEVICE, BODY MECHANICS AND EQUIPMENT TO IMPROVE FUNCTIONAL TRANSFERS WITH ASSISTANCE BY [id number] PATIENT/CAREGIVER WILL DEMONSTRATE/VERBALIZE UNDERSTANDING OF RECOMMENDATIONS TO [...] Date/Time Encounter Type Admission Type Attending [facility] Care Department Encounter ID Discharge Date Discharge Status Discharge Condition Discharge Reason Percent Goals Met 2022-07-05 00:00:00 2023-04-30 00:00:00 Outpatient RECERTIFIC ATION [facility] [id number] 2023-04-30 00:00:00 DISCHARGE TO HOME OR SELF CARE MODERATE ASSIST WITH TRANSFER/A MBULATION/ ADLS MAX POTENTIAL MET ( ONLY) 80.65
--- OUTSIDE RECORDS SUMMARY | 2024-07-22 06:34 | XMS_ITS | Clinical Summary ---
Author Organization Unknown Care Team Providers Care Employment Recruiter Name Role Phone PHIL OLMOS, CALLIE Unavailable Unavailable MISTY RN, LILO Unavailable Unavailable NAPOLILARISSA OT, TRINIDAD Unavailable Unavailable DOUG PT, JOE Unavailable Unavailable Payers Payer Name Policy Type Policy Number Effective Date Expira tion Date MEDICARE.NGS.PDGM [id number] Problems Condition Name Condition Details Condition Category [...] DRUG LEVEL MONITORING Active 11-18 00:00: 00 PRISON (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 OF ANTICOAGULAN TS Active 11-18 00:00: 00 PERSONAL HISTORY OF COVID-19 Active 09-09 00:00: 00 PERSONAL HISTORY OF URINARY (TRACT) INFECTIONS Active 09-09 00:00: 00 PRESENCE OF PROSTHETIC HEART VALVE Active 09-09 00:00: 00 PERSONAL HISTORY OF OTHER VENOUS THROMBOSIS AND EMBOLISM Active 07-14 00:00: 00 PRESENCE OF ARTIFICIAL KNEE JOINT, BILATERAL Active 07-14 00:00: 00 PRISON (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 OF INSULIN Active 11-18 00:00: [...] 100 mg tablet 11-18 00:00: 00 Yes [id number] FOR GOUT 100 mg DAILY 100 mg DAILY (route: oral) Med Classific ation: Gout and Hyperuric emia Therapy Aspirin Low Dose 81 mg tablet,alvina yed release 11-18 00:00: 00 Yes [id number] CARDIAC HEALTH 81 mg DAILY 81 mg DAILY (route: oral) Med Classific ation: Hematolog ical Agents Basaglar KwikPen U-100 Insulin 100 unit/mL (3 mL) subcutaneou s 11-18 00:00: 00 Yes [id number] TREATS DIABETES 10 unit BEDTIME 10 unit BEDTIME (route: subcutaneo us) Med Classific ation: Endocrine cephalexin 250 mg capsule 11-18 00:00: 00 Yes [id number] TREATS ENDOCARDITI S 250 mg EVERY 12 HOURS 250 mg EVERY 12 HOURS (route: oral) Med Classific ation: Anti-Infe ctive Agents Colace 100 mg capsule 11-18 00:00: 00 Yes [id number] STOOL SOFTNER 100 mg 2 TIMES DAILY 100 mg 2 TIMES DAILY (route: oral) Med Classific ation: Gastroint estinal Therapy Agents Milk of Magnesia 400 mg/5 mL oral suspension 11-18 00:00: 00 Yes [id number] TREATS CONSTIPATIO N 30 mL DAILY 30 mL DAILY (route: oral) Med Classific ation: Gastroint estinal Therapy Agents Probiotic 10 billion cell capsule 11-18 00:00: 00 Yes [id number] SUPPLEMENT 1 capsule DAILY 1 capsule DAILY (route: oral) Med Classific ation: Gastroint estinal Therapy Agents torsemide 20 mg tablet 11-18 00:00: 00 Yes [id number] DIURETIC 40 mg DAILY 40 mg DAILY (route: oral) Med Classific ation: Cardiovas cular Therapy Agents Tylenol Arthritis Pain 650 mg tablet,exte nded release 11-18 00:00: 00 Yes [id number] FOR PAIN 650 mg EVERY 4 HOURS 650 mg EVERY 4 HOURS (route: oral) Med Classific ation: Analgesic , Anti-infl ammatory or Antipyret ic warfarin 6 mg tablet 11-18 00:00: 00 Yes [id number] BLOOD THINNER 6 mg DAILY 6 mg DAILY (route: oral) Med Classific ation: Hematolog ical Agents Zocor 20 mg tablet 11-18 00:00: 00 Yes [id number] TREATS HIGH CHOLESTEROL 40 mg BEDTIME 40 mg BEDTIME (route: oral) Med Classific ation: Cardiovas cular Therapy Agents insulin lispro (U-100) 100 unit/mL subcutaneou s pen 11-18 00:00: 00 Yes [id number] TREATS DIABETES 2 unit NEEDED 2 unit NEEDED (route: subcutaneo ) Med Classific ation: Endocrine insulin lispro (U-100) 100 unit/mL subcutaneou s pen 11-18 00:00: 00 Yes [id number] TREATS DIABETES 4 unit DIRECTED 4 unit DIRECTED (route: subcutaneo us) Med Classific ation: Endocrine insulin lispro (U-100) 100 unit/mL subcutaneou s pen 11-18 00:00: 00 Yes [id number] TREATS DIABETES 6 unit DIRECTED 6 unit DIRECTED (route: subcutaneo us) Med Classific ation: Endocrine insulin lispro (U-100) 100 unit/mL subcutaneou s pen 11-18 00:00: 00 Yes [id number] TREATS DIABETES 8 unit DIRECTED 8 unit DIRECTED (route: subcutaneo us) Med Classific ation: Endocrine insulin lispro (U-100) 100 unit/mL subcutaneou s pen 11-18 00:00: 00 Yes [id number] TREATS DIABETES 10 unit DIRECTED 10 unit [...] EMERGENCY SERVICES CALL [facility]ED[facility] NURSE TO KEEP BROKE HANDLER SYMPTOM REPORT FOR VISIBLE REFERENCE NOTIFY SKILLED [...] EMERGENCY SERVICES CALL [facility] NURSE TO KEEP BROKE HANDLER SYMPTOM REPORT FOR VISIBLE REFERENCE NOTIFY SKILLED [...] PATIENT REPORTED WEIGHT AND NOTIFY CM / NAIL SETTER FOR MD NOTIFICATION FOR SIGNS AND SYMPTOMS [...] PATIENT REPORTED WEIGHT AND NOTIFY CM / NAIL SETTER FOR MD NOTIFICATION FOR SIGNS AND SYMPTOMS [...] End Date/Time Encounter Type Admission Type Attending [facility] Care Department Encounter ID Discharge Date Discharge Status Discharge Condition Discharge Reason Percent Goals Met 2021-11-18 00:00:00 2021-11-26 00:00:00 Outpatient NEW ADMISSION [facility] [id number] 2021-11-26 00:00:00 DISCHARGE TO HOME OR SELF CARE INDEPENDEN T IN THE HOME HH OR PAL- GOALS MET 37.50
[2024-07-22 07:05] LABS: INTERNATIONAL NORM RATIO 1.9 (0.9-1.1); Prothrombin Time 22.5 SEC (10.9-12.4)
[2024-07-22 07:08] LABS: Uric Acid 9.3 mg/dL (3.4-7.0)
== END 2024-07-22 06:31 | disposition home or self-care (01) ==
LOC: HO.HSH2E 06:30
PROVIDERS: Visit Provider Internal Medicine Endocrinology, Diabetes & Metabolism
DX: E83.52 Hypercalcemia (principal)
CPT/HCPCS: 36415; 84550; 85610

== ENCOUNTER 2024-07-22 14:49 | Outpatient (AMB) | payer MEDICARE, SELFPAY ==
--- NOTE | 2024-07-22 16:25 | A.OFFVIS_ITS ---
Intake Intake Visit Reasons: circumcision follow up? Allergies ceftriaxone Allergy (Verified 06/23/24 20:21) Unknown HPI HPI Comments History of Present Illness Details Gume is a pleasant male. He is a resident [facility] He seen for the following urologic conditions - elevated PSA - recent circumcision Recent circumcision Had question of balanitis Responded well to betamethasone cream On exam shows well-healed Elevated PSA PSA 02/03 20.3, 06/06 12.3, 08/07 12.1 Spectacular response to finasteride May still have underlying prostate cancer Plan to continue interval surveillance [facility] Medical History Hx of decubitus ulcer Former smoker Peripheral neuropathy Compartment syndrome of right lower extremity Osteoarthritis Pancreatic cyst Gout ASHD (arteriosclerotic heart disease) Aortic stenosis Chronic kidney disease Chronic combined systolic and diastolic CHF (congestive heart failure) Nonrheumatic aortic (valve) stenosis Anemia Endocarditis Afib Obesity Hyperlipidemia Murmur HTN (hypertension) Neuropathy Diabetes Surgical History Hx of ankle fusion History of total bilateral knee replacement Hx of aortic valve replacement Social History Patient Tobacco Use Status: Former Tobacco user Review of Systems Const Reports as per HPI and Reports no additional complaints Card Reports as per HPI and Reports no additional complaints Resp Reports as per HPI and Reports no additional complaints GI Reports as per HPI and Reports no additional complaints Reports as per HPI Musc Reports no additional complaints and Reports as per HPI Neuro Reports no additional complaints and Reports as per HPI Physical Exam Const General: cooperative, healthy appearing, comfortable and no acute distress Orientation/consciousness: patient oriented x3 HEENT Face and sinus: Yes normal facial exam Mouth: moist mucous membranes Neck Neck: Yes normal visual inspection, Yes full ROM and Yes trachea midline Chest Chest palpation & inspection: normal inspection of the chest Resp Effort & Inspection: normal respiratory effort, able to speak in complete sentences and no respiratory distress GI Inspection: Yes normal to inspection Back/Spine/Pelvis Cervical Spine: normal cervical lordosis Thoracic/Lumbar Spine: thoracic and lumbar spine normal to inspection Skin General skin exam: no rashes or lesions noted Neuro General: patient oriented x3, tone normal and moves all extremities Extrem General: Yes normal to inspection and Yes capillary refill normal Assessment & Plan Assessment & Plan (1) Elevated PSA: Code(s): R97.20 - Elevated prostate specific antigen [PSA] Plan Six-month follow-up PSA Patient Instructions: Imaging studies, laboratory and physical exam results were discussed and reviewed in detail. No major barriers to patient understanding were identified. An opportunity to ask questions regarding the treatment plan was provided. All questions were answered. The patient expressed understanding and agreement with the above treatment plan. The patient is aware they should contact our office by phone for worsening of their current condition or the appearance of new urologic symptoms. Compliance is encouraged with any medications and followup testing that is ordered. It is a privilege to participate in the urologic care of your patient. If you have any questions or concerns regarding treatment for the above conditions, or other urologic issues, please do not hesitate to contact me. The office telephone contact is [phone]. This note is constructed using voice recognition software. While every effort has been made to ensure accuracy rn birthing errors may have been included. Yours sincerely, Dr Tank Bermudez MD, [facility] - Urology Providers of Expert, Compassionate Care for the Genitourinary System Coding Level of Care Code 68979-Vvpf Fac sub, mod Diagnoses Elevated PSA R97.20
--- OUTSIDE RECORDS SUMMARY | 2024-07-22 16:42 | XMS_ITS | Clinical Summary ---
Author Organization Unknown Care Team Providers Care Food And Beverage Server Name Role Phone PHIL OLMOS, CALLIE Unavailable Unavailable MISTY RN, LILO Unavailable Unavailable NAPOLILARISSA OT, TRINIDAD Unavailable Unavailable DOUG PT, JOE Unavailable Unavailable Payers Payer Name Policy Type Policy Number Effective Date Expira tion Date MEDICARE.NGS.PDGM [id number] Problems Condition Name Condition Details Condition Category [...] DRUG LEVEL MONITORING Active 11-18 00:00: 00 LONGTERM (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 OF ANTICOAGULAN TS Active 11-18 00:00: 00 PERSONAL HISTORY OF COVID-19 Active 09-09 00:00: 00 PERSONAL HISTORY OF URINARY (TRACT) INFECTIONS Active 09-09 00:00: 00 PRESENCE OF PROSTHETIC HEART VALVE Active 09-09 00:00: 00 PERSONAL HISTORY OF OTHER VENOUS THROMBOSIS AND EMBOLISM Active 07-14 00:00: 00 PRESENCE OF ARTIFICIAL KNEE JOINT, BILATERAL Active 07-14 00:00: 00 LONGTERM (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 OF INSULIN Active 11-18 00:00: [...] 100 mg tablet 11-18 00:00: 00 Yes [id number] FOR GOUT 100 mg DAILY 100 mg DAILY (route: oral) Med Classific ation: Gout and Hyperuric emia Therapy Aspirin Low Dose 81 mg tablet,alvina yed release 11-18 00:00: 00 Yes [id number] CARDIAC HEALTH 81 mg DAILY 81 mg DAILY (route: oral) Med Classific ation: Hematolog ical Agents Basaglar KwikPen U-100 Insulin 100 unit/mL (3 mL) subcutaneou s 11-18 00:00: 00 Yes [id number] TREATS DIABETES 10 unit BEDTIME 10 unit BEDTIME (route: subcutaneo us) Med Classific ation: Endocrine cephalexin 250 mg capsule 11-18 00:00: 00 Yes [id number] TREATS ENDOCARDITI S 250 mg EVERY 12 HOURS 250 mg EVERY 12 HOURS (route: oral) Med Classific ation: Anti-Infe ctive Agents Colace 100 mg capsule 11-18 00:00: 00 Yes [id number] STOOL SOFTNER 100 mg 2 TIMES DAILY 100 mg 2 TIMES DAILY (route: oral) Med Classific ation: Gastroint estinal Therapy Agents Milk of Magnesia 400 mg/5 mL oral suspension 11-18 00:00: 00 Yes [id number] TREATS CONSTIPATIO N 30 mL DAILY 30 mL DAILY (route: oral) Med Classific ation: Gastroint estinal Therapy Agents Probiotic 10 billion cell capsule 11-18 00:00: 00 Yes [id number] SUPPLEMENT 1 capsule DAILY 1 capsule DAILY (route: oral) Med Classific ation: Gastroint estinal Therapy Agents torsemide 20 mg tablet 11-18 00:00: 00 Yes [id number] DIURETIC 40 mg DAILY 40 mg DAILY (route: oral) Med Classific ation: Cardiovas cular Therapy Agents Tylenol Arthritis Pain 650 mg tablet,exte nded release 11-18 00:00: 00 Yes [id number] FOR PAIN 650 mg EVERY 4 HOURS 650 mg EVERY 4 HOURS (route: oral) Med Classific ation: Analgesic , Anti-infl ammatory or Antipyret ic warfarin 6 mg tablet 11-18 00:00: 00 Yes [id number] BLOOD THINNER 6 mg DAILY 6 mg DAILY (route: oral) Med Classific ation: Hematolog ical Agents Zocor 20 mg tablet 11-18 00:00: 00 Yes [id number] TREATS HIGH CHOLESTEROL 40 mg BEDTIME 40 mg BEDTIME (route: oral) Med Classific ation: Cardiovas cular Therapy Agents insulin lispro (U-100) 100 unit/mL subcutaneou s pen 11-18 00:00: 00 Yes [id number] TREATS DIABETES 2 unit NEEDED 2 unit NEEDED (route: subcutaneo ) Med Classific ation: Endocrine insulin lispro (U-100) 100 unit/mL subcutaneou s pen 11-18 00:00: 00 Yes [id number] TREATS DIABETES 4 unit DIRECTED 4 unit DIRECTED (route: subcutaneo us) Med Classific ation: Endocrine insulin lispro (U-100) 100 unit/mL subcutaneou s pen 11-18 00:00: 00 Yes [id number] TREATS DIABETES 6 unit DIRECTED 6 unit DIRECTED (route: subcutaneo us) Med Classific ation: Endocrine insulin lispro (U-100) 100 unit/mL subcutaneou s pen 11-18 00:00: 00 Yes [id number] TREATS DIABETES 8 unit DIRECTED 8 unit DIRECTED (route: subcutaneo us) Med Classific ation: Endocrine insulin lispro (U-100) 100 unit/mL subcutaneou s pen 11-18 00:00: 00 Yes [id number] TREATS DIABETES 10 unit DIRECTED 10 unit [...] EMERGENCY SERVICES CALL [facility] NURSE TO KEEP COMPUTATIONAL THEORY SCIENTIST SYMPTOM REPORT FOR VISIBLE REFERENCE NOTIFY SKILLED [...] EMERGENCY SERVICES CALL [facility] NURSE TO KEEP COMPUTATIONAL THEORY SCIENTIST SYMPTOM REPORT FOR VISIBLE REFERENCE NOTIFY SKILLED [...] PATIENT REPORTED WEIGHT AND NOTIFY CM / SUPPORTIVE EMPLOYMENT CASE MANAGER FOR MD NOTIFICATION FOR SIGNS AND SYMPTOMS [...] PATIENT REPORTED WEIGHT AND NOTIFY CM / SUPPORTIVE EMPLOYMENT CASE MANAGER FOR MD NOTIFICATION FOR SIGNS AND SYMPTOMS [...] End Date/Time Encounter Type Admission Type Attending [facility] Care Department Encounter ID Discharge Date Discharge Status Discharge Condition Discharge Reason Percent Goals Met 2021-11-18 00:00:00 2021-11-26 00:00:00 Outpatient NEW ADMISSION [facility]O [facility] [id number] 2021-11-26 00:00:00 DISCHARGE TO HOME OR SELF CARE INDEPENDEN T IN THE HOME HH OR PAL- GOALS MET 37.50
--- OUTSIDE RECORDS SUMMARY | 2024-07-22 16:42 | XMS_ITS | Clinical Summary ---
Author Organization Unknown Care Team Providers Care Fuel Pilot Engineer Name Role Phone WANDA OLMOS, [place] Unavailable Unavailable MOISE RN, AARTI Unavailable Unavailable CEDRICK OT, DEEJAY Unavailable Unavailabl ileana MESSINA OT, THERAPY FILTER TENDER JELLY, DANDY Unavailabl e Unavailable LENIN PT, LEONOR Unavailable Unavailable CANDIE LOREDO, GISELA Unavailable Unavailable SHARONDA CROP SCOUT, ENZO Unavailable Unavailable Payers Payer Name Policy Type Policy Number Effective Date Expira tion Date MEDICARE - [place] - PD [id number] [facility] [id number] Problems Condition Name Condition Details Condition Category Status Onset Date Resolution Date Last Treatment Date Treating Clinician Comments PRESSURE ULCER OF LEFT BUTTOCK, STAGE 2 Active 6-20 00:00: 00 PAROXYSMAL ATRIAL FIBRILLATION Active 08-29 00:00: 00 HYPERLIPIDEM IA, UNSPECIFIED Active 08-29 00:00: 00 ATHSCL HEART DISEASE OF [place] CORONARY ARTERY W/O ANG PCTRS Active 08-29 [...] PROSTHETIC HEART VALVE Active 08-29 00:00: 00 CLOTH INSPECTOR (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 Active 02-25 00:00: [...] 325 mg capsule 2021-07 00:00: 00 Yes [id number] 2 capsule DAILY 2 capsule DAILY (route: oral) Med Classific ation: Analgesic , Anti-infl ammatory or Antipyret ic allopurinol 300 mg tablet 2021-07 00:00: 00 08-29 23:59 :00 No [id number] 1 tablet DAILY 1 tablet DAILY (route: oral) Med Classific ation: Gout and Hyperuric emia Therapy doxycycline hyclate 100 mg capsule 2021-07 00:00: 00 Yes [id number] 1 capsule 2 TIMES DAILY 1 capsule 2 TIMES DAILY (route: oral) Med Classific ation: Anti-Infe ctive Agents gabapentin 100 mg capsule 2021-07 00:00: 00 10-22 23:59 :00 No [id number] 1 capsule 2 TIMES DAILY 1 capsule 2 TIMES DAILY (route: oral) Med Classific ation: Central Nervous System Agents multivitami n tablet 2021-07 00:00: 00 Yes [id number] 1 tablet DAILY 1 tablet DAILY (route: oral) Med Classific ation: Electroly te Balance-N utritiona l Products pantoprazol e 40 mg tablet,alvina yed release 2021-07 00:00: 00 Yes [id number] 1 tablet DAILY 1 tablet DAILY (route: oral) Med Classific ation: Gastroint estinal Therapy Agents Santyl 250 unit/gram topical ointment 2021-07 00:00: 00 08-29 23:59 :00 No [id number] 1 inch DAILY 1 inch DAILY (route: topical) Med Classific ation: Dermatolo gical simvastatin 20 mg tablet 2021-07 00:00: 00 Yes [id number] 1 tablet DAILY 1 tablet DAILY (route: oral) Med Classific ation: Cardiovas cular Therapy Agents warfarin 4 mg tablet 2021-07 00:00: 00 07-09 23:59 :00 No [id number] 1 tablet DAILY 1 tablet DAILY (route: oral) Med Classific ation: Hematolog ical Agents warfarin 5 mg tablet 2021-07 00:00: 00 07-10 23:59 :00 No [id number] 1 tablet DAILY 1 tablet DAILY (route: oral) Med Classific ation: Hematolog ical Agents warfarin 5 mg tablet 1- 00:00: 00 07-17 23:59 :00 No [id number] 5 mg DAILY 5 mg DAILY (route: oral) Med Classific ation: Hematolog ical Agents warfarin 5 mg tablet 1-05 00:00: 00 07-25 23:59 :00 No [id number] Per instruc tions DAILY Per instructio ns DAILY (route: oral) Med Classific ation: Hematolog ical Agents warfarin 5 mg tablet 1-13 00:00: 00 08-01 23:59 :00 No [id number] 5 mg DAILY 5 mg DAILY (route: oral) Med Classific ation: Hematolog ical Agents warfarin 5 mg tablet 1-19 00:00: 00 08-07 23:59 :00 No [id number] Per instruc tions DAILY Per instructio ns DAILY (route: oral) Med Classific ation: Hematolog ical Agents Jantoven 5 mg tablet 1-26 00:00: 00 08-15 23:59 :00 No [id number] 1 tablet DAILY 1 tablet DAILY (route: oral) Med Classific ation: Hematolog ical Agents warfarin 5 mg tablet 2-02 00:00: 00 08-22 23:59 :00 No [id number] Per instruc tions DAILY Per instructio ns DAILY (route: oral) Med Classific ation: Hematolog ical Agents warfarin 5 mg tablet 2-09 00:00: 00 09-05 23:59 :00 No [id number] Per instruc tions DAILY Per instructio ns DAILY (route: oral) Med Classific ation: Hematolog ical Agents metoprolol succinate ER 50 mg tablet,exte nded release 24 hr 2-21 00:00: 00 Yes [id number] 3 tablet DAILY 3 tablet DAILY (route: oral) Med Classific ation: Cardiovas cular Therapy Agents warfarin 5 mg tablet 2-23 00:00: 00 09-19 23:59 :00 No [id number] 1 tablet DAILY 1 tablet DAILY (route: oral) Med Classific ation: Hematolog ical Agents warfarin 5 mg tablet 0 3-16 00:00: 00 10-10 23:59 :00 No [id number] Per instruc tions DAILY Per instructio ns DAILY (route: oral) Med Classific ation: Hematolog ical Agents warfarin 5 mg tablet 3-30 00:00: 00 10-17 23:59 :00 No [id number] Per instruc tions DAILY Per instructio ns DAILY (route: oral) Med Classific ation: Hematolog ical Agents amoxicillin 875 mg-potassiu m clavulanate 125 mg tablet 4-10 00:00: 00 11-30 23:59 :00 No [id number] 1 tablet 2 TIMES DAILY 1 tablet 2 TIMES DAILY (route: oral) Med Classific ation: Anti-Infe ctive Agents cyanocobala min (vit B-12) 1,000 mcg tablet 10-22 00:00: 00 Yes [id number] 1 tablet DAILY 1 tablet DAILY (route: oral) Med Classific ation: Electroly te Balance-N utritiona l Products gabapentin 100 mg capsule 10-22 00:00: 00 Yes [id number] 2 capsule 2 TIMES DAILY 2 capsule 2 TIMES DAILY (route: oral) Med Classific ation: Central Nervous System Agents warfarin 5 mg tablet 10-22 00:00: 00 11-05 18:31 :00 No [id number] Per instruc tions DAILY Per instructio ns DAILY (route: oral) Med Classific ation: Hematolog ical Agents warfarin 5 mg tablet 11-05 00:00: 00 11-12 23:59 :00 No [id number] Per instruc tions DAILY Per instructio ns DAILY (route: oral) Med Classific ation: Hematolog ical Agents warfarin 5 mg tablet 11-12 00:00: 00 11-18 23:59 :00 No [id number] Per instruc tions DAILY Per instructio ns DAILY (route: oral) Med Classific ation: Hematolog ical Agents warfarin 5 mg tablet 11-19 00:00: 00 11-24 23:59 :00 No [id number] Per instruc tions DIRECTED Per instructio ns DIRECTED (route: oral) Med Classific ation: Hematolog ical Agents warfarin 5 mg tablet 12-10 00:00: 12-16 23:59 :00 No [id number] Per instruc tions DAILY Per instructio ns DAILY (route: oral) Med Classific ation: Hematolog ical Agents warfarin 5 mg tablet 06 00:00: 00 12-23 23:59 :00 No [id number] Per instruc tions DAILY Per instructio ns DAILY (route: oral) Med Classific ation: Hematolog ical Agents warfarin 5 mg tablet 6-14 00:00: 00 12-30 23:59 :00 No [id number] Per instruc tions DAILY Per instructio ns DAILY (route: oral) Med Classific ation: Hematolog ical Agents warfarin 5 mg tablet 6- 00:00: 00 01-07 00:00 :00 No [id number] 1 tablet DAILY 1 tablet DAILY (route: oral) Med Classific ation: Hematolog ical Agents warfarin 5 mg tablet 01-07 00:00: 00 01-14 23:59 :00 No [id number] Per instruc tions DAILY Per instructio ns DAILY (route: oral) Med Classific ation: Hematolog ical Agents warfarin 5 mg tablet 7-11 00:00: 00 01-27 23:59 :00 No [id number] Per instruc tions DAILY Per instructio ns DAILY (route: oral) Med Classific ation: Hematolog ical Agents warfarin 5 mg tablet 7-18 00:00: 00 02-04 23:59 :00 No [id number] Per instruc tions DAILY Per instructio ns DAILY (route: oral) Med Classific ation: Hematolog ical Agents warfarin 5 mg tablet -25 00:00: 00 02-11 23:59 :00 No [id number] 1.5 tablet DAILY 1.5 tablet DAILY (route: oral) Med Classific ation: Hematolog ical Agents warfarin 5 mg tablet 8- 00:00: 00 02-18 23:59 :00 No [id number] Per instruc tions DAILY Per instructio ns DAILY (route: oral) Med Classific ation: Hematolog ical Agents Antifungal (miconazole ) 2 % topical cream 02-19 00:00: 00 Yes [id number] Per instruc tions 2 TIMES DAILY Per instructio ns 2 TIMES DAILY (route: topical) Med Classific ation: Dermatolo gical Augmentin 500 mg-125 mg tablet 02-17 00:00: 00 02-21 23:59 :00 No [id number] 1 tablet 2 TIMES DAILY 1 tablet 2 TIMES DAILY (route: oral) Med Classific ation: Anti-Infe ctive Agents warfarin 5 mg tablet 03-11 00:00: 00 03-12 23:59 :00 No [id number] 1.5 tablet DAILY 1.5 tablet DAILY (route: oral) Med Classific ation: Hematolog ical Agents warfarin 5 mg tablet 03-10 00:00: 00 03-10 23:59 :00 No [id number] 1 tablet DAILY 1 tablet DAILY (route: oral) Med Classific ation: Hematolog ical Agents warfarin 5 mg tablet 03-13 00:00: 00 03-18 23:59 :00 No [id number] Per instruc tions DAILY Per instructio ns DAILY (route: oral) Med Classific ation: Hematolog ical Agents warfarin 5 mg tablet 03-18 00:00: 00 03-24 23:59 :00 No [id number] Per instruc tions DAILY Per instructio ns DAILY (route: oral) Med Classific ation: Hematolog ical Agents warfarin 5 mg tablet 03-25 00:00: 00 03-31 23:59 :00 No [id number] Per instruc tions DAILY Per instructio ns [...] STANDING WITH FULL WEIGHT BEARING CAPABILITIES PER [facility]GE IN[facility] [code = PHYSICAL THERAPIST TO EVALUATE PATIENT FOR STRENGTH AND STANDING WITH FULL WEIGHT BEARING CAPABILITIES PER [facility] DISCHARGE INSTRUCTION ] Future Scheduled [...] CARE WILL BE ESTABLISHED THAT MEETS PATIENT'S LONG TERM NEEDS AND INCLUDES PATIENT GOAL FOR HOME [...] HOME PROGRAM TO IMPROVE FUNCTIONAL MOBILITY BY [id number] PATIENT/CAREGIVER WILL DEMONSTRATE IMPROVED BED MOBILITY TECHNIQUES TO IMPROVE BED MOBILITY BY [id number] PATIENT/CAREGIVER WILL DEMONSTRATE SAFE TRANSFERS USING APPROPRIATE ASSISTIVE DEVICE, BODY MECHANICS AND EQUIPMENT TO IMPROVE FUNCTIONAL TRANSFERS WITH ASSISTANCE BY [id number] PATIENT/CAREGIVER WILL DEMONSTRATE/VERBALIZE UNDERSTANDING OF RECOMMENDATIONS TO INCREASE SAFETY IN THE HOME AND FALL PREVENTION TO IMPROVE FUNCTION. ONGOING Goal Provider Goal - CHANGES IN PATIENTS DEPRESSIVE SYMPTOMS WILL BE IDENTIFIED AND MD PROMPTLY NOTIFIED TO MINIMIZE ASSOCIATED RISKS BY THE END OF THE CERTIFICATION PERIOD. Reason for Visit MODERATE ASSIST WITH TRANSFER/AMBULATION/ADLS Encounters Start Date/Time End Date/Time Encounter Type Admission Type Attending [facility] Care Department Encounter ID Discharge Date Discharge Status Discharge Condition Discharge Reason Percent Goals Met 2022-07-05 00:00:00 2023-04-30 00:00:00 Outpatient RECERTIFIC ATION DIMITRYLOPEZ [facility] [id number] 2023-04-30 00:00:00 DISCHARGE TO HOME OR SELF CARE MODERATE ASSIST WITH TRANSFER/A MBULATION/ ADLS MAX POTENTIAL MET ( ONLY) 80.65
--- OUTSIDE RECORDS SUMMARY | 2024-07-22 16:42 | XMS_ITS | Clinical Summary ---
Author Organization Unknown Care Team Providers Care Medical Apparatus Model Maker Name Role Phone PHIL OLMOS, CALLIE Unavailable Unavailable MISTY RN, LILO Unavailable Unavailable NAPOLILARISSA OT, TRINIDAD Unavailable Unavailable DOUG PT, JOE Unavailable Unavailable Payers Payer Name Policy Type Policy Number Effective Date Expira tion Date MEDICARE.NGS.PDGM [id number] Problems Condition Name Condition Details Condition Category [...] DRUG LEVEL MONITORING Active 11-18 00:00: 00 INTERMEDIATE (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 OF ANTICOAGULAN TS Active 11-18 00:00: 00 PERSONAL HISTORY OF COVID-19 Active 09-09 00:00: 00 PERSONAL HISTORY OF URINARY (TRACT) INFECTIONS Active 09-09 00:00: 00 PRESENCE OF PROSTHETIC HEART VALVE Active 09-09 00:00: 00 PERSONAL HISTORY OF OTHER VENOUS THROMBOSIS AND EMBOLISM Active 07-14 00:00: 00 PRESENCE OF ARTIFICIAL KNEE JOINT, BILATERAL Active 07-14 00:00: 00 INTERMEDIATE (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 OF INSULIN Active 11-18 00:00: [...] 100 mg tablet 11-18 00:00: 00 Yes [id number] FOR GOUT 100 mg DAILY 100 mg DAILY (route: oral) Med Classific ation: Gout and Hyperuric emia Therapy Aspirin Low Dose 81 mg tablet,alvina yed release 11-18 00:00: 00 Yes [id number] CARDIAC HEALTH 81 mg DAILY 81 mg DAILY (route: oral) Med Classific ation: Hematolog ical Agents Basaglar KwikPen U-100 Insulin 100 unit/mL (3 mL) subcutaneou s 11-18 00:00: 00 Yes [id number] TREATS DIABETES 10 unit BEDTIME 10 unit BEDTIME (route: subcutaneo us) Med Classific ation: Endocrine cephalexin 250 mg capsule 11-18 00:00: 00 Yes [id number] TREATS ENDOCARDITI S 250 mg EVERY 12 HOURS 250 mg EVERY 12 HOURS (route: oral) Med Classific ation: Anti-Infe ctive Agents Colace 100 mg capsule 11-18 00:00: 00 Yes [id number] STOOL SOFTNER 100 mg 2 TIMES DAILY 100 mg 2 TIMES DAILY (route: oral) Med Classific ation: Gastroint estinal Therapy Agents Milk of Magnesia 400 mg/5 mL oral suspension 11-18 00:00: 00 Yes [id number] TREATS CONSTIPATIO N 30 mL DAILY 30 mL DAILY (route: oral) Med Classific ation: Gastroint estinal Therapy Agents Probiotic 10 billion cell capsule 11-18 00:00: 00 Yes [id number] SUPPLEMENT 1 capsule DAILY 1 capsule DAILY (route: oral) Med Classific ation: Gastroint estinal Therapy Agents torsemide 20 mg tablet 11-18 00:00: 00 Yes [id number] DIURETIC 40 mg DAILY 40 mg DAILY (route: oral) Med Classific ation: Cardiovas cular Therapy Agents Tylenol Arthritis Pain 650 mg tablet,exte nded release 11-18 00:00: 00 Yes [id number] FOR PAIN 650 mg EVERY 4 HOURS 650 mg EVERY 4 HOURS (route: oral) Med Classific ation: Analgesic , Anti-infl ammatory or Antipyret ic warfarin 6 mg tablet 11-18 00:00: 00 Yes [id number] BLOOD THINNER 6 mg DAILY 6 mg DAILY (route: oral) Med Classific ation: Hematolog ical Agents Zocor 20 mg tablet 11-18 00:00: 00 Yes [id number] TREATS HIGH CHOLESTEROL 40 mg BEDTIME 40 mg BEDTIME (route: oral) Med Classific ation: Cardiovas cular Therapy Agents insulin lispro (U-100) 100 unit/mL subcutaneou s pen 11-18 00:00: 00 Yes [id number] TREATS DIABETES 2 unit NEEDED 2 unit NEEDED (route: subcutaneo ) Med Classific ation: Endocrine insulin lispro (U-100) 100 unit/mL subcutaneou s pen 11-18 00:00: 00 Yes [id number] TREATS DIABETES 4 unit DIRECTED 4 unit DIRECTED (route: subcutaneo us) Med Classific ation: Endocrine insulin lispro (U-100) 100 unit/mL subcutaneou s pen 11-18 00:00: 00 Yes [id number] TREATS DIABETES 6 unit DIRECTED 6 unit DIRECTED (route: subcutaneo us) Med Classific ation: Endocrine insulin lispro (U-100) 100 unit/mL subcutaneou s pen 11-18 00:00: 00 Yes [id number] TREATS DIABETES 8 unit DIRECTED 8 unit DIRECTED (route: subcutaneo us) Med Classific ation: Endocrine insulin lispro (U-100) 100 unit/mL subcutaneou s pen 11-18 00:00: 00 Yes [id number] TREATS DIABETES 10 unit DIRECTED 10 unit [...] EMERGENCY SERVICES CALL [facility] NURSE TO KEEP OVERHAULER HELPER SYMPTOM REPORT FOR VISIBLE REFERENCE NOTIFY SKILLED [...] EMERGENCY SERVICES CALL [employer] NURSE TO KEEP OVERHAULER HELPER SYMPTOM REPORT FOR VISIBLE REFERENCE NOTIFY SKILLED [...] PATIENT REPORTED WEIGHT AND NOTIFY CM / RADIOLOGICAL DEFENSE OFFICER FOR MD NOTIFICATION FOR SIGNS AND SYMPTOMS [...] PATIENT REPORTED WEIGHT AND NOTIFY CM / RADIOLOGICAL DEFENSE OFFICER FOR MD NOTIFICATION FOR SIGNS AND SYMPTOMS [...] 2021-11-26 00:00:00 Outpatient NEW ADMISSION [facility]ILO [facility] [id number] 2021-11-26 00:00:00 DISCHARGE TO HOME OR SELF CARE INDEPENDEN T IN THE HOME HH OR PAL- GOALS MET 37.50
--- OUTSIDE RECORDS SUMMARY | 2024-07-22 16:42 | XMS_ITS | Clinical Summary ---
Author Organization Unknown Care Team Providers Care Project Manager Finance Name Role Phone WANDA OLM[place], [place] Unavailable Unavailable MOISE RN, AARTI Unavailable Unavailable CEDRICK OT, DEEJAY Unavailable Unavailabl ileana MESSINA OT, THERAPY PROCEDURAL NURSE, DANDY Unavailabl e Unavailable LENIN PT, LEONOR Unavailable Unavailable CANDIE LOREDO, GISELA Unavailable Unavailable SHARONDA INSTRUMENTATION ENGINEERING TECHNICIAN, ENZO Unavailable Unavailable Payers Payer Name Policy Type Policy Number Effective Date Expira tion Date [place]IC[place] - [place] [id number] [facility] [id number] Problems Condition Name Condition Details Condition Category Status Onset Date Resolution Date Last Treatment Date Treating Clinician Comments PRESSURE ULCER OF LEFT BUTTOCK, STAGE 2 Active 6-20 00:00: 00 PAROXYSMAL ATRIAL FIBRILLATION Active 08-29 00:00: 00 HYPERLIPIDEM IA, UNSPECIFIED Active 08-29 00:00: 00 ATHSCL HEART DISEASE OF [place] CORONARY ARTERY W/O ANG PCTRS Active 08-29 [...] PROSTHETIC HEART VALVE Active 08-29 00:00: 00 HOME HEALTH OUTREACH COORDINATOR (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 Active 02-25 00:00: [...] 325 mg capsule 2021-07 00:00: 00 Yes [id number] 2 capsule DAILY 2 capsule DAILY (route: oral) Med Classific ation: Analgesic , Anti-infl ammatory or Antipyret ic allopurinol 300 mg tablet 2021-07 00:00: 00 08-29 23:59 :00 No [id number] 1 tablet DAILY 1 tablet DAILY (route: oral) Med Classific ation: Gout and Hyperuric emia Therapy doxycycline hyclate 100 mg capsule 2021-07 00:00: 00 Yes [id number] 1 capsule 2 TIMES DAILY 1 capsule 2 TIMES DAILY (route: oral) Med Classific ation: Anti-Infe ctive Agents gabapentin 100 mg capsule 2021-07 00:00: 00 10-22 23:59 :00 No [id number] 1 capsule 2 TIMES DAILY 1 capsule 2 TIMES DAILY (route: oral) Med Classific ation: Central Nervous System Agents multivitami n tablet 2021-07 00:00: 00 Yes [id number] 1 tablet DAILY 1 tablet DAILY (route: oral) Med Classific ation: Electroly te Balance-N utritiona l Products pantoprazol e 40 mg tablet,alvina yed release 2021-07 00:00: 00 Yes [id number] 1 tablet DAILY 1 tablet DAILY (route: oral) Med Classific ation: Gastroint estinal Therapy Agents Santyl 250 unit/gram topical ointment 2021-07 00:00: 00 08-29 23:59 :00 No [id number] 1 inch DAILY 1 inch DAILY (route: topical) Med Classific ation: Dermatolo gical simvastatin 20 mg tablet 2021-07 00:00: 00 Yes [id number] 1 tablet DAILY 1 tablet DAILY (route: oral) Med Classific ation: Cardiovas cular Therapy Agents warfarin 4 mg tablet 2021-07 00:00: 00 07-09 23:59 :00 No [id number] 1 tablet DAILY 1 tablet DAILY (route: oral) Med Classific ation: Hematolog ical Agents warfarin 5 mg tablet 2021-07 00:00: 00 07-10 23:59 :00 No [id number] 1 tablet DAILY 1 tablet DAILY (route: oral) Med Classific ation: Hematolog ical Agents warfarin 5 mg tablet 1- 00:00: 00 07-17 23:59 :00 No [id number] 5 mg DAILY 5 mg DAILY (route: oral) Med Classific ation: Hematolog ical Agents warfarin 5 mg tablet 1-05 00:00: 00 07-25 23:59 :00 No [id number] Per instruc tions DAILY Per instructio ns DAILY (route: oral) Med Classific ation: Hematolog ical Agents warfarin 5 mg tablet 1-13 00:00: 00 08-01 23:59 :00 No [id number] 5 mg DAILY 5 mg DAILY (route: oral) Med Classific ation: Hematolog ical Agents warfarin 5 mg tablet 1-19 00:00: 00 08-07 23:59 :00 No [id number] Per instruc tions DAILY Per instructio ns DAILY (route: oral) Med Classific ation: Hematolog ical Agents Jantoven 5 mg tablet 1-26 00:00: 00 08-15 23:59 :00 No [id number] 1 tablet DAILY 1 tablet DAILY (route: oral) Med Classific ation: Hematolog ical Agents warfarin 5 mg tablet 2-02 00:00: 00 08-22 23:59 :00 No [id number] Per instruc tions DAILY Per instructio ns DAILY (route: oral) Med Classific ation: Hematolog ical Agents warfarin 5 mg tablet 2-09 00:00: 00 09-05 23:59 :00 No [id number] Per instruc tions DAILY Per instructio ns DAILY (route: oral) Med Classific ation: Hematolog ical Agents metoprolol succinate ER 50 mg tablet,exte nded release 24 hr 2-21 00:00: 00 Yes [id number] 3 tablet DAILY 3 tablet DAILY (route: oral) Med Classific ation: Cardiovas cular Therapy Agents warfarin 5 mg tablet 2-23 00:00: 00 09-19 23:59 :00 No [id number] 1 tablet DAILY 1 tablet DAILY (route: oral) Med Classific ation: Hematolog ical Agents warfarin 5 mg tablet 0 3-16 00:00: 00 10-10 23:59 :00 No [id number] Per instruc tions DAILY Per instructio ns DAILY (route: oral) Med Classific ation: Hematolog ical Agents warfarin 5 mg tablet 3-30 00:00: 00 10-17 23:59 :00 No [id number] Per instruc tions DAILY Per instructio ns DAILY (route: oral) Med Classific ation: Hematolog ical Agents amoxicillin 875 mg-potassiu m clavulanate 125 mg tablet 4-10 00:00: 00 11-30 23:59 :00 No [id number] 1 tablet 2 TIMES DAILY 1 tablet 2 TIMES DAILY (route: oral) Med Classific ation: Anti-Infe ctive Agents cyanocobala min (vit B-12) 1,000 mcg tablet 10-22 00:00: 00 Yes [id number] 1 tablet DAILY 1 tablet DAILY (route: oral) Med Classific ation: Electroly te Balance-N utritiona l Products gabapentin 100 mg capsule 10-22 00:00: 00 Yes [id number] 2 capsule 2 TIMES DAILY 2 capsule 2 TIMES DAILY (route: oral) Med Classific ation: Central Nervous System Agents warfarin 5 mg tablet 10-22 00:00: 00 11-05 18:31 :00 No [id number] Per instruc tions DAILY Per instructio ns DAILY (route: oral) Med Classific ation: Hematolog ical Agents warfarin 5 mg tablet 11-05 00:00: 00 11-12 23:59 :00 No [id number] Per instruc tions DAILY Per instructio ns DAILY (route: oral) Med Classific ation: Hematolog ical Agents warfarin 5 mg tablet 11-12 00:00: 00 11-18 23:59 :00 No [id number] Per instruc tions DAILY Per instructio ns DAILY (route: oral) Med Classific ation: Hematolog ical Agents warfarin 5 mg tablet 11-19 00:00: 00 11-24 23:59 :00 No [id number] Per instruc tions DIRECTED Per instructio ns DIRECTED (route: oral) Med Classific ation: Hematolog ical Agents warfarin 5 mg tablet 12-10 00:00: 12-16 23:59 :00 No [id number] Per instruc tions DAILY Per instructio ns DAILY (route: oral) Med Classific ation: Hematolog ical Agents warfarin 5 mg tablet 06 00:00: 00 12-23 23:59 :00 No [id number] Per instruc tions DAILY Per instructio ns DAILY (route: oral) Med Classific ation: Hematolog ical Agents warfarin 5 mg tablet 6-14 00:00: 00 12-30 23:59 :00 No [id number] Per instruc tions DAILY Per instructio ns DAILY (route: oral) Med Classific ation: Hematolog ical Agents warfarin 5 mg tablet 6- 00:00: 00 01-07 00:00 :00 No [id number] 1 tablet DAILY 1 tablet DAILY (route: oral) Med Classific ation: Hematolog ical Agents warfarin 5 mg tablet 01-07 00:00: 00 01-14 23:59 :00 No [id number] Per instruc tions DAILY Per instructio ns DAILY (route: oral) Med Classific ation: Hematolog ical Agents warfarin 5 mg tablet 7-11 00:00: 00 01-27 23:59 :00 No [id number] Per instruc tions DAILY Per instructio ns DAILY (route: oral) Med Classific ation: Hematolog ical Agents warfarin 5 mg tablet 7-18 00:00: 00 02-04 23:59 :00 No [id number] Per instruc tions DAILY Per instructio ns DAILY (route: oral) Med Classific ation: Hematolog ical Agents warfarin 5 mg tablet -25 00:00: 00 02-11 23:59 :00 No [id number] 1.5 tablet DAILY 1.5 tablet DAILY (route: oral) Med Classific ation: Hematolog ical Agents warfarin 5 mg tablet 8- 00:00: 00 02-18 23:59 :00 No [id number] Per instruc tions DAILY Per instructio ns DAILY (route: oral) Med Classific ation: Hematolog ical Agents Antifungal (miconazole ) 2 % topical cream 02-19 00:00: 00 Yes [id number] Per instruc tions 2 TIMES DAILY Per instructio ns 2 TIMES DAILY (route: topical) Med Classific ation: Dermatolo gical Augmentin 500 mg-125 mg tablet 02-17 00:00: 00 02-21 23:59 :00 No [id number] 1 tablet 2 TIMES DAILY 1 tablet 2 TIMES DAILY (route: oral) Med Classific ation: Anti-Infe ctive Agents warfarin 5 mg tablet 03-11 00:00: 00 03-12 23:59 :00 No [id number] 1.5 tablet DAILY 1.5 tablet DAILY (route: oral) Med Classific ation: Hematolog ical Agents warfarin 5 mg tablet 03-10 00:00: 00 03-10 23:59 :00 No [id number] 1 tablet DAILY 1 tablet DAILY (route: oral) Med Classific ation: Hematolog ical Agents warfarin 5 mg tablet 03-13 00:00: 00 03-18 23:59 :00 No [id number] Per instruc tions DAILY Per instructio ns DAILY (route: oral) Med Classific ation: Hematolog ical Agents warfarin 5 mg tablet 03-18 00:00: 00 03-24 23:59 :00 No [id number] Per instruc tions DAILY Per instructio ns DAILY (route: oral) Med Classific ation: Hematolog ical Agents warfarin 5 mg tablet 03-25 00:00: 00 03-31 23:59 :00 No [id number] Per instruc tions DAILY Per instructio ns [...] STANDING WITH FULL WEIGHT BEARING CAPABILITIES PER [facility] DISCHARGE INSTRUCTION [code = PHYSICAL THERAPIST TO EVALUATE PATIENT FOR STRENGTH AND STANDING WITH FULL WEIGHT BEARING CAPABILITIES PER [facility] DISCHARGE INSTRUCTION ] Future Scheduled [...] CARE WILL BE ESTABLISHED THAT MEETS PATIENT'S [facility] NEEDS AND INCLUDES PATIENT GOAL FOR HOME [...] HOME PROGRAM TO IMPROVE FUNCTIONAL MOBILITY BY [id number] PATIENT/CAREGIVER WILL DEMONSTRATE IMPROVED BED MOBILITY TECHNIQUES TO IMPROVE BED MOBILITY BY [id number] PATIENT/CAREGIVER WILL DEMONSTRATE SAFE TRANSFERS USING APPROPRIATE ASSISTIVE DEVICE, BODY MECHANICS AND EQUIPMENT TO IMPROVE FUNCTIONAL TRANSFERS WITH ASSISTANCE BY [id number] PATIENT/CAREGIVER WILL DEMONSTRATE/VERBALIZE UNDERSTANDING OF RECOMMENDATIONS TO INCREASE SAFETY IN THE HOME AND FALL PREVENTION TO IMPROVE FUNCTION. ONGOING Goal Provider Goal - CHANGES IN PATIENTS DEPRESSIVE SYMPTOMS WILL BE IDENTIFIED AND MD PROMPTLY NOTIFIED TO MINIMIZE ASSOCIATED RISKS BY THE END OF THE CERTIFICATION PERIOD. Reason for Visit MODERATE ASSIST WITH TRANSFER/AMBULATION/ADLS Encounters Start Date/Time End Date/Time Encounter Type Admission Type Attending [facility] Care Department Encounter ID Discharge Date Discharge Status Discharge Condition Discharge Reason Percent Goals Met 2022-07-05 00:00:00 2023-04-30 00:00:00 Outpatient RECERTIFIC ATION DIMITRYLOPEZ LEONOR [facility] [id number] 2023-04-30 00:00:00 DISCHARGE TO HOME OR SELF CARE MODERATE ASSIST WITH TRANSFER/A MBULATION/ ADLS MAX POTENTIAL MET ( ONLY) 80.65
== END 2024-07-22 16:55 ==
LOC: HO.HUSV 14:49
PROVIDERS: PCP Internal Medicine Medical Oncology; Visit Provider Urology
DX: R97.20 Elevated prostate specific antigen [PSA] (principal)
CPT/HCPCS: 99309

== ENCOUNTER 2024-08-05 06:19 | Outpatient (REF) | payer MEDICARE, SELFPAY ==
[2024-08-05 06:47] LABS: INTERNATIONAL NORM RATIO 2.1 (0.9-1.1); Prothrombin Time 24.8 SEC (10.9-12.4)
[2024-08-05 06:58] LABS: Uric Acid 8.3 mg/dL (3.4-7.0)
== END 2024-08-05 06:20 | disposition home or self-care (01) ==
LOC: HO.HSH2E 06:19
PROVIDERS: Visit Provider Internal Medicine Endocrinology, Diabetes & Metabolism
DX: Z95.2 Presence of prosthetic heart valve (principal); M10.9 Gout, unspecified
CPT/HCPCS: 36415; 84550; 85610

== ENCOUNTER 2024-08-19 06:12 | Outpatient (REF) | payer MEDICARE, SELFPAY ==
[2024-08-19 07:35] LABS: INTERNATIONAL NORM RATIO 2.7 (0.9-1.1); Prothrombin Time 31.8 SEC (10.9-12.4)
== END 2024-08-19 06:13 | disposition home or self-care (01) ==
LOC: HO.HSH2E 06:12
PROVIDERS: Visit Provider Internal Medicine Endocrinology, Diabetes & Metabolism
DX: Z95.2 Presence of prosthetic heart valve (principal)
CPT/HCPCS: 36415; 85610

== ENCOUNTER 2024-09-02 06:40 | Outpatient (REF) | payer MEDICARE, SELFPAY ==
--- OUTSIDE RECORDS SUMMARY | 2024-09-02 06:44 | XMS_ITS | Clinical Summary ---
Author Organization [employer] Address [address] [place] [address] [place] [address] Care Team Providers Care Janitor Custodian Name Role Phone Unavailable Primary Care Provider Unavailabl e Allergies Active Allergy Reactions Criticality Noted Date Comments Ceftriaxone 06/16/2024 Medications nystatin (Mycostatin) 387175 UNIT/GM powder 4 Active traMADol (Ultram) 50 MG tablet 4 Active gabapentin (Neurontin) 100 MG capsule Take 200 mg by mouth 2 times daily. 4 Active doxycycline (Vibra-Tabs) 100 MG tablet 4 Active metoprolol succinate XL (Toprol-XL) 100 MG 24 hr tablet 4 Active clotrimazole-bet amethasone (Lotrisone) cream 4 Active simvastatin (Zocor) 20 MG tablet Take 20 mg by mouth at bedtime. Active warfarin (Coumadin) 5 MG tablet Take by mouth. Take as directed per After Visit Summary. Active doxycycline (Adoxa) 100 MG tablet Take 100 mg by mouth 2 times daily. Take with a full glass of water and do not lie down for at least 30 minutes after Active amLODIPine (Norvasc) 2.5 MG tablet Take by mouth Once per day. Active acetaminophen (Tylenol) 325 MG suppository Insert into the rectum. Active allopurinol (Zyloprim) 100 MG tablet Take by mouth. Active furosemide (Lasix) 20 MG tablet Take by mouth. Active finasteride (Proscar) 5 MG tablet Take 5 mg by mouth Once per day. Do not crush, chew, or split. Active Encounters Date Type Department Care Team Description 08/04/2024 10:00 AM EST Office Visit [facility] [address] [place] [id number] Jesus Dejesus DMD 07/28/2024 1:00 PM EST Office Visit [facility] [address] [place] [id number] Jesus Dejesus DMD 07/05/2024 10:00 AM EST Office Visit [facility] [address] [place] [address] Melissa aLrson 06/16/2024 8:15 AM EST Office Visit [facility] [address] [place] [address] Jesus Dejesus DMD from Last 3 Months Social History Tobacco Use Types Packs/Day Years Used Date Smoking Tobacco: Unknown Tobacco Cessation:Counseling Given: Not Answered Alcohol Use Standard Drinks/Week Comments Defer 0 (1 standard drink = 0.6 oz pur e alcohol) Sex and Gender Information Value Date Recorded Sex Assigned at Male 01/30/2024 9:10 AM EDT Legal Sex Male 9:09 AM EDT Gender Identity Male 01/30/2024 9:10 AM EDT Sexual Orientation Straight 01/30/2024 9: 10 AM EDT Last Filed Vital Signs Vital Sign Reading Time Taken Comments Blood Pressure 120/68 08/04/2024 10:12 AM EST Pulse 60 08/04/2024 10:12 AM EST Temperature - - Respiratory Rate - - Oxygen Saturation - - Inhaled Oxygen Concentration - - Weight - - Height - - Body Mass Index - - Plan of Treatment Health Maintenance Due Date Last Done Comments Dental Oral Exam 1943 Dental X-Ray: Bitewings 1943 Dental X-Ray: Full Mouth 1943 Depression Screening 1943 Lipid Panel 1943 SDOH Screening 1943 Alcohol/Substance Use Screening 1955 DTaP/Tdap/Td Vaccines (1 - Tdap) 1962 Pneumococcal Vaccine: 50+ Ye ars (1 of 1 - PCV) 1993 Zoster Vaccines (1 of 2) 1993 RSV Patients and Pa tients Aged 60 years or older (1 - 1-dose 75+ series) 2018 COVID-19 Vaccine ( - 2023-2 5 season) 2024 Influenza Vaccine (#1) 2024 Dental Prophylaxis 01/04/2025 07/05/2024 Tobacco Screening 08/04/2025 08/04/2024 HIB Vaccines Aged Out No longer eligi ble based on patient's age to complete this topic HPV Vaccines Aged Out No longer eligi ble based on patient's age to complete this topic Hepatitis A Vaccines Aged Out No long er eligible based on patient's age to complete this topic Hepatitis B Vaccines Aged Out No long er eligible based on patient's age to complete this topic IPV Vaccines Aged Out No longer eligi ble based on patient's age to complete this topic Meningococcal Vaccine Aged Out No dario zeke eligible based on patient's age to complete this topic RSV under 20 months Aged Out No longe r eligible based on patient's age to complete this topic Rotavirus Vaccines Aged Out No longer eligible based on patient's age to complete this topic Procedures Procedure Name Priority Date/Time Associated Diagnosis Comments 26 I RESIN-BASED COMPOSITE - 1 SURF, ANTERIOR Routine 08/04/2024 10:00 AM EST 25 I RESIN-BASED COMPOSITE - 1 SURF, ANTERIOR Routine 08/04/2024 10:00 AM EST 24 I RESIN-BASED COMPOSITE - 1 SURF, ANTERIOR Routine 08/04/2024 10:00 AM EST 23 I RESIN-BASED COMPOSITE - 1 SURF, ANTERIOR Routine 08/04/2024 10:00 AM EST 22 I RESIN-BASED COMPOSITE - 1 SURF, ANTERIOR Routine 08/04/2024 10:00 AM EST 8 L RESIN-BASED COMPOSITE - 1 SURF, ANTERIOR Routine 08/04/2024 10:00 AM EST 10 DIFL RESIN-BASED COMPOSITE - 4 OR MORE SURFACES (ANTERIOR) Routine 07/28/2024 1:00 PM EST 9 MIFL RESIN-BASED COMPOSITE - 4 OR MORE SURFACES (ANTERIOR) Routine 07/28/2024 1:00 PM EST ORAL HYGIENE INSTRUCTIONS Routine 2023 10:00 AM EST TOPICAL APPLICATION OF FLUORIDE VARNISH Routine 07/05/2024 10:00 AM EST PROPHYLAXIS - ADULT Routine 07/05/2024 1 0:00 AM EST COMPREHENSIVE PERIODONTAL EVALUATION - NEW OR ESTABLISHED PATIENT Routine 06/16/2024 8:15 AM EST 31 PFM CROWN Routine 06/16/2024 12:00 AM EST 30 PFM CROWN Routine 06/16/2024 12:00 AM EST 30 ROOT CANAL Routine 06/16/2024 12:00 AM EST 29 ROOT CANAL Routine 06/16/2024 12:00 AM EST 29 PFM CROWN Routine 06/16/2024 12:00 AM EST 28 PFM CROWN Routine 06/16/2024 12:00 AM EST 21 DO AMALGAM FILLING Routine 06/16/2024 12:00 AM EST 3 PFM CROWN Routine 06/16/2024 12:00 AM EST 5 PFM CROWN Routine 06/16/2024 12:00 AM EST 20 ABUTMENT SUPPORTED CAST METAL CROWN (HIGH BARRETO METAL) Routine 06/16/2024 12:00 AM EST 14 PFM CROWN Routine 06/16/2024 12:00 AM EST 13 PFM CROWN Routine 06/16/2024 12:00 AM EST 11 DF COMPOSITE FILLING Routine 06/16/20 24 12:00 AM EST 8 DIL COMPOSITE FILLING Routine 06/16/20 24 12:00 AM EST from Last 3 Months
--- OUTSIDE RECORDS SUMMARY | 2024-09-02 06:44 | XMS_ITS | Clinical Summary ---
Author Organization [facility] it Address [address] [place] [address] Care Team Providers Care Rink Rat Name Role Phone Unavailable Primary Care Provider Unavailabl e Social History Tobacco Use Types Packs/Day Years Used Date Smoking Tobacco: Never Assessed Sex and Gender Information Value Date Recorded Sex Assigned at Not on file Legal Sex Male 3:23 AM EST Gender Identity Not on file Sexual Orientation Not on file Plan of Treatment Health Maintenance Due Date Last Done Comments DTaP,Tdap,and Td Vaccines (1 - Tdap) 1962 Pneumococcal Vaccine: 50+ Ye ars (1 of 1 - PCV) 1993 Zoster Vaccines (1 of 2) 1993 RSV Immunization Patients 60 + Years Old (1 - 1-dose 75+ series) 2018 Cholesterol Screening (Lipid Panel) 06/16/2022 Depression Screening 06/16/2022 Falls Risk Assessment 06/16/2022 Social Influencers of Health Screening 06/16/2022 COVID-19 Vaccine ( - 2023-2 5 season) 2024 Influenza Vaccine (#1) 2024 HIB Vaccines Aged Out No longer eligi [...] on patient's age to complete this topic MMR Vaccines Aged Out No longer eligi ble based on patient's age to complete this topic Meningococcal ACWY Vaccine Aged Out N o longer eligible based on patient's age to complete this topic Meningococcal B Vacine Aged Out No lo nger eligible based on patient's age to complete this topic RSV Immunization Patients Un gonzalo 20 months Aged Out No longer eligible b ased on patient's age to complete this topic Varicella Vaccines Aged Out No longer eligible based on patient's age to complete this topic
--- OUTSIDE RECORDS SUMMARY | 2024-09-02 06:44 | XMS_ITS | Clinical Summary ---
Author Organization [facility] Address [address] [place] [address] Phone Care Team Providers Care Skiver Machine Operator Name Role Phone Vladimir Keys MD Primary Care Provider [phone] Allergies No known active allergies Medications acetaminophen (TYLENOL) 325 MG tablet Take 975 mg by mouth every 8 (eight) hours if needed 6 Active aspirin (ST KORINA) 81 MG EC tablet Take 1 tablet by mouth 1 (one) time each day Active Docusate Sodium (DSS) 100 MG capsule Take 100 mg by mouth 1 (one) time each day 7 Active gabapentin (NEURONTIN) 100 MG capsule Take 200 mg by mouth 1 (one) time each day 2 Active melatonin 3 MG tablet Take 3 mg by mouth at bed time 2 Active metoprolol tartrate 25 MG tablet Take 75 mg by mouth 1 (one) time each day 2 Active simvastatin (ZOCOR) 20 MG tablet Take 1 tablet by mouth 1 (one) time each day 1 Active sodium bicarbonate 650 MG tablet Take 650 mg by mouth 1 (one) time each day 2 Active Sodium Zirconium Cyclosilicate 10 g pack Take 10 g by mouth 3 (three) times a week 2 Active warfarin (COUMADIN) 5 MG tablet Take 2 tablets by mouth 1 (one) time each day 8 Active albuterol HFA (PROVENTIL HFA;VENTOLIN HFA) 108 (90 Base) MCG/ACT inhaler Inhale 1 puff every 4 (four) hours Active colchicine 0.6 MG tablet Take 0.6 mg by mouth 1 (one) time each day Active warfarin (COUMADIN) 2 MG tablet Take 2 mg by mouth 1 (one) time each day Take as directed per After Visit Summary. Active torsemide (DEMADEX) 20 MG tablet Take 20 mg by mouth in the morning and 20 mg in the evening. 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 Urinary tract infectious disease 01/15/2022 Chronic kidney disease stage 4 09/18/2021 Hypertensive disorder 09/18/2021 Hypertensive renal disease 09/18/2021 Resolved Problems Problem Noted Date Diagnosed Date Resolved Date Aortic valve stenosis 09/18/20212021 Chronic systolic heart failure 09/18/2021 10/18/2021 Chronic total occlusion of coronary artery 09/18/2021 10/18/2021 Cyst of pancreas 09/18/2021 10/18/2021 Gout 09/18/2021 10/18/2021 History of aortic valve replacement 09/18/2021 10/18/2021 Non-rheumatic mitral valve stenosis 09/18/2021 10/18/2021 Left bundle-branch block 09/18/202101/2022 Severe obesity 09/18/2021 10/18/2021 Type 2 diabetes mellitus 09/18/202101/2022 COVID-19 09/06/2021 10/18/2021 Overview (09/18/2021): Problem added by Discern Expert History of arthrodesis of ankle 04/02/2017 10/18/2021 Primary osteoarthritis, left ankle and foot 01/30/2016 10/18/2021 Overview (09/18/2021): Added automatically from request for surgery [id number] Immunizations Name Administration Dates Next Due Influenza, Unspecified 04/24/2021,2019,03/14/2017,03/31/2016, 5 Pfizer SARS-COV-2 11/21/2020,10/29/2020 Family History Medical History Relation Comments Diabetes Father Heart disease Father [place] Stroke Mother Relation Status Comments Father Mother Social History Tobacco Use Types Packs/Day Years Used Date Smoking Tobacco: Some Days Cigars Smokeless Tobacco: Never Alcohol Use Standard Drinks/Week Comments Yes 0 (1 standard drink = 0.6 oz pure alcohol) Alcoholic Drinks/day: Occasional social drink Sex and Gender Information Value Date Recorded Sex Assigned at Not on file Legal Sex Male 4:58 PM EST Gender Identity Not on file Sexual Orientation Not on file Last Filed Vital Signs Vital Sign Reading Time Taken Comments Blood Pressure 101/64 10/23/2021 2:58 PM EDT Pulse 76 10/23/2021 2:58 PM EDT Temperature - - Respiratory Rate - - Oxygen Saturation - - Inhaled Oxygen Concentration - - Weight 119 kg (263 lb) 10/23/2021 2:58 PM EDT Height - - Body Mass Index - - Plan of Treatment Health Maintenance Due Date Last Done Comments Pneumococcal Vaccine: 65+ Years (1 of 2 - PCV) 1949 Influenza Vaccine (#1) 2024 , 03/05/2020, 03/14/2017, Additional history exists Hepatitis B Vaccine Aged Out No longe r eligible based on patient's age to complete this topic Insurance MEDICARE [facility] MEDICARE [facility] Care Teams Skiver Machine Operator Relationship Specialty Start Date End Date Vladimir Keys MD [address] [place] [address], [address] [place], [place] PCP - General 07/24/20
--- OUTSIDE RECORDS SUMMARY | 2024-09-02 06:44 | XMS_ITS | Encounter Summary ---
Author Organization [employer] Address [address] [place] [address] Care Team Providers Care Pega Developer Name Role Phone Unavailable Primary Care Provider Unavailabl e Reason for Visit * Reason Comments Filling Encounter Details Date Type Department Care Team (Late st Contact Info) Description 08/04/2024 10:00 AM EST Office Visit [facility] [address] [place] [address] Jesus Dejesus DMD [address] [place] [address] Social History Tobacco Use Types Packs/Day Years Used Date Smoking Tobacco: Unknown Alcohol Use Standard Drinks/Week Comments Defer 0 (1 standard drink = 0.6 oz pur e alcohol) Sex and Gender Information Value Date Recorded Sex Assigned at Male 01/30/2024 9:10 AM EDT Legal Sex Male 9:09 AM EDT Gender Identity Male 01/30/2024 9:10 AM EDT Sexual Orientation Straight 01/30/2024 9: 10 AM EDT documented as of this encounter Last Filed Vital Signs Vital Sign Reading Time Taken Comments Blood Pressure 120/68 08/04/2024 10:12 AM EST Pulse 60 08/04/2024 10:12 AM EST Temperature - - Respiratory Rate - - Oxygen Saturation - - Inhaled Oxygen Concentration - - Weight - - Height - - Body Mass Index - - documented in this encounter Progress Notes * Jesus Dejesus DMD - 08/04/2024 10:00 AM EST Teeth#8, 22-26: No L.A., Gluma placed, etch and botello, composite A-3 is packed, carved, and smoothed, occlusion check. Pt satisfied NV: prophy, recall exam Josefina documented in this encounter Plan of Treatment Not on file documented as of this encounter Procedures Procedure Name Priority Date/Time Associated Diagnosis [...] SURF, ANTERIOR Routine 08/04/2024 10:00 AM EST documented in this encounter Visit Diagnoses Not on filedocumented in this encounter
[2024-09-02 07:05] LABS: INTERNATIONAL NORM RATIO 2.5 (0.9-1.1); Prothrombin Time 29.1 SEC (10.9-12.4)
== END 2024-09-02 06:41 | disposition home or self-care (01) ==
LOC: HO.HSH2E 06:40
PROVIDERS: Visit Provider Internal Medicine Endocrinology, Diabetes & Metabolism
DX: Z95.2 Presence of prosthetic heart valve (principal)
CPT/HCPCS: 36415; 85610

== ENCOUNTER 2024-09-14 06:58 | Outpatient (REF) | payer MEDICARE, SELFPAY ==
--- OUTSIDE RECORDS SUMMARY | 2024-09-14 07:03 | XMS_ITS | Clinical Summary ---
Author Organization [employer] Address [address] [place] [address] [place] [address] Care Team Providers Care Dry Goods Clerk Name Role Phone Unavailable Primary Care Provider Unavailabl e Allergies Active Allergy Reactions Criticality Noted Date Comments Ceftriaxone 06/16/2024 Medications nystatin (Mycostatin) 914633 UNIT/GM powder 4 Active traMADol (Ultram) 50 [...] Description 08/04/2024 10:00 AM EST Office Visit [facility] [address] [place] [address] Jesus Dejesus DMD 07/28/2024 1:00 PM EST Office Visit [facility] [address] [place] [address] Jesus Dejesus DMD 07/05/2024 10:00 AM EST Office Visit [facility] [address] [place] [address] Melissa Larson 06/16/2024 8:15 AM EST Office Visit [facility] [address] [place] [address] Jesus Dejesus DMD from Last 3 Months [...]
--- OUTSIDE RECORDS SUMMARY | 2024-09-14 07:03 | XMS_ITS | Clinical Summary ---
Author Organization [facility] Address [address] [place] [address] Phone Care Team Providers Care Burial Needs Salesperson Name Role Phone Vladimir Keys MD Primary Care Provider [phone] Allergies No known active allergies Medications acetaminophen [...] (09/18/2021): Added automatically from request for surgery [id number] Immunizations Name Administration Dates Next Due Influenza, Unspecified 04/24/2021,2019,03/14/2017,03/31/2016, 5 Pfizer SARS-COV-2 11/21/2020,10/29/2020 Family History Medical History Relation Comments Diabetes Father Heart disease Father [place] Stroke Mother Relation Status Comments Father Mother [...] age to complete this topic Insurance MEDICARE [facility] MEDICARE [facility] Care Teams Burial Needs Salesperson Relationship Specialty Start Date End Date Vladimir Keys MD [address] [place] [address], [address] [place], [place] PCP - General 07/24/20
--- OUTSIDE RECORDS SUMMARY | 2024-09-14 07:03 | XMS_ITS | Clinical Summary ---
Author Organization [facility] it Address [address] [place] [address] Care Team Providers Care Fairing Worker Name Role Phone Unavailable Primary Care Provider [...]
[2024-09-14 07:06] LABS: MANUAL DIFF FLAG NO
[2024-09-14 07:24] LABS: Prothrombin Time 34.8 SEC (10.9-12.4)
[2024-09-14 07:29] LABS: Basophils Percent Auto 0.4 % (0-2); Eosinophils Absolute Auto 0.2 X10*3/uL (0.0-0.4); Hematocrit 26.7 % (42.0-52.0); Hemoglobin 8.3 g/dl (14.0-18.0); Imm Gran Abs Auto 0.02 X10*3/uL (0.00-0.03); Imm Gran Pct Auto 0.4 % (0.0-0.4); Lymphocytes Absolute Auto 0.6 X10*3/uL (1.2-4.9); Lymphocytes Percent Auto 10.1 % (20-40); Mean Corpuscular HGB Conc 31.1 g/dl (31.0-36.0); Mean Corpuscular Hemoglobin 29.6 pg (27.0-33.0); Mean Corpuscular Volume 95.4 fL (80.0-98.0); Mean Platelet Volume 11.1 fL (9.4-12.4); Monocytes Absolute Auto 0.6 X10*3/uL (0.1-1.2); Monocytes Percent Auto 11.3 % (2-11); Neutrophils Percent Auto 73.8 % (45-73); Platelet Count 179 X10*3/uL (160-400); Red Cell Distribution Width 15.2 % (11.0-16.0); White Blood Count 5.5 X10*3/uL (4.8-10.8)
[2024-09-14 07:40] LABS: B Type Natriuretic Peptide 956 pg/mL (<100)
[2024-09-14 07:42] LABS: Alanine Aminotransferase 9 U/L (0-40); Albumin Level 3.3 g/dL (3.5-5.0); Alkaline Phosphatase 92 U/L (39-117); Anion Gap 12 (12-20); Aspartate Amino Transferase 26 U/L (5-37); Bilirubin Total 0.5 mg/dL (0.0-1.0); Blood Urea Nitrogen 73 mg/dL (9-16); Calcium 9.8 mg/dL (8.4-10.2); Carbon Dioxide 22 mmol/L (22-29); Chloride 109 mmol/L (96-108); Estimated Glomerular Filt Rate 28; Glucose Random 90 mg/dL (60-115); Potassium 5.1 mmol/L (3.3-5.1); Sodium 138 mmol/L (135-145)
[2024-09-14 07:57] LABS: Thyroid Stimulating Hormone 4.88 uIU/mL (0.32-4.0)
== END 2024-09-14 06:59 | disposition home or self-care (01) ==
LOC: HO.HSH 06:58
PROVIDERS: Visit Provider Internal Medicine Interventional Cardiology
DX: R60.0 Localized edema (principal); N18.30 Chronic kidney disease, stage 3 unspecified
CPT/HCPCS: 36415; 80053; 83880; 84443; 85025; 85610

== ENCOUNTER 2024-09-16 08:24 | Outpatient (REF) | payer MEDICARE, SELFPAY ==
[2024-09-16 08:39] LABS: INTERNATIONAL NORM RATIO 2.8 (0.9-1.1); Prothrombin Time 32.2 SEC (10.9-12.4)
--- OUTSIDE RECORDS SUMMARY | 2024-09-16 08:49 | XMS_ITS | Clinical Summary ---
Author Organization [facility] Address [address] [place] [address] Phone Care Team Providers Care Instant Potato Processor Name Role Phone Vladimir Keys MD Primary Care Provider [phone] Allergies No known active allergies Medications acetaminophen [...] (09/18/2021): Added automatically from request for surgery [id number] Immunizations Name Administration Dates Next Due Influenza, Unspecified 04/24/2021,2019,03/14/2017,03/31/2016, 5 Pfizer SARS-COV-2 11/21/2020,10/29/2020 Family History Medical History Relation Comments Diabetes Father Heart disease Father [place] Stroke Mother Relation Status Comments Father Mother [...] age to complete this topic Insurance MEDICARE [facility] MEDICARE [facility] Care Teams Instant Potato Processor Relationship Specialty Start Date End Date Vladimir Keys MD [address] [place] [address], [address] [place], [place] PCP - General 07/24/20
--- OUTSIDE RECORDS SUMMARY | 2024-09-16 08:49 | XMS_ITS | Clinical Summary ---
Author Organization [employer] Address [address] [place] [address] [place] [address] Care Team Providers Care Machined Parts Quality Inspector Name Role Phone Unavailable Primary Care Provider Unavailabl e Allergies Active Allergy Reactions Criticality Noted Date Comments Ceftriaxone 06/16/2024 Medications nystatin (Mycostatin) 481694 UNIT/GM powder 4 Active traMADol (Ultram) 50 [...] Description 08/04/2024 10:00 AM EST Office Visit [facility] [address] [place] [address] Jesus Dejesus DMD 07/28/2024 1:00 PM EST Office Visit [facility] [address] [place] [address] Jesus Dejesus DMD 07/05/2024 10:00 AM EST Office Visit [facility] [address] [place] [address] Melissa Larson from Last 3 Months Social History Tobacco [...] ADULT Routine 07/05/2024 1 0:00 AM EST from Last 3 Months
--- OUTSIDE RECORDS SUMMARY | 2024-09-16 08:49 | XMS_ITS | Clinical Summary ---
Author Organization [facility] [address] it Address [address] [place] [address] Care Team Providers Care Inspector Clip On Sunglasses Name Role Phone Unavailable Primary Care Provider [...]
== END 2024-09-16 08:25 | disposition home or self-care (01) ==
LOC: HO.HSH 08:24
PROVIDERS: Visit Provider Internal Medicine
DX: I48.91 Unspecified atrial fibrillation (principal)
CPT/HCPCS: 36415; 85610

== ENCOUNTER 2024-09-24 11:16 | Outpatient (AMB) | payer MEDICARE, SELFPAY ==
--- NOTE | 2024-09-24 11:33 | HO.NEPHOV ---
Vital Signs 09/24/24 11:36 Height 5 ft 11 in Weight 293 lb 6 oz BMI 40.9 BP 114/60 Blood Pressure Location Rt brachial Position Sitting Pulse 56 Pulse Source Pulse Oximeter Pulse Oximetry (%) 95 Oxygen Delivery Method Room Air Intake Visit Reasons: ENP: CKD-Conf Flame Annealing Machine Setter Required: No Allergies ceftriaxone Allergy (Verified 09/24/24 11:35) Unknown HPI Comments Details: I had the pleasure of seeing Gume who was accompanied by his family for his advanced CKD as well as anemia of chronic kidney disease on a backdrop of Hypertension and DM. He has H/O KHADRA needing renal replacement in the past. He has no uremic symptoms or hypoglycemias. He has H/O BPH and is on finasteride. He said he does not remember urinating for sometime prior to this office visit. He does not have any supra pubic pressure or pain, flank pain, fever, chills, hematuria , dysuria. His appetite is good. He denies nausea, vomiting, diarrhea, chest pain, hemoptysis, hemetemesis, melena, recurrent sinusitis or renal calculi. He does not have any orthostatic symptoms. He does not take NSAID's regularly. He does not have any new bone or back pain. [facility] Medical History Hx of decubitus ulcer Former smoker Peripheral neuropathy Compartment syndrome of right lower extremity Osteoarthritis Pancreatic cyst Gout ASHD (arteriosclerotic heart disease) Aortic stenosis Chronic kidney disease Chronic combined systolic and diastolic CHF (congestive heart failure) Nonrheumatic aortic (valve) stenosis Anemia Endocarditis Afib Obesity Hyperlipidemia Murmur HTN (hypertension) Neuropathy Diabetes Surgical History Hx of ankle fusion History of total bilateral knee replacement Hx of aortic valve replacement Social History Patient Tobacco Use Status: Former Tobacco user Review of Systems Const All systems reviewed & are unremarkable except as noted in HPI and below Physical Exam Vital Signs: Last Vital Signs Pulse 56 09/24/24 11:36 BP 114/60 09/24/24 11:36 Pulse Ox 95 09/24/24 11:36 Oxygen Delivery Method Room Air 09/24/24 11:36 BMI result Body Mass Index 40.9 Const General: no acute distress Eyes EOM: EOMs intact bilaterally Neck Neck: Yes supple Resp Auscultation: diminished lung sounds Results Reviewed Nephrology Results: Hgb 8.3 g/dl (14.0-18.0) L 09/14/24 WBC 5.5 X10*3/uL (4.8-10.8) 09/14/24 Plt Count 179 X10*3/uL (160-400) 09/14/24 Sodium 138 mmol/L (135-145) 09/14/24 Potassium 5.1 mmol/L (3.3-5.1) 09/14/24 Chloride 109 mmol/L (96-108) H 09/14/24 Carbon Dioxide 22 mmol/L (22-29) 09/14/24 BUN 73 mg/dL (9-16) H 09/14/24 Creatinine 2.27 mg/dL (0.5-1.4) H 09/14/24 Calcium 9.8 mg/dL (8.4-10.2) 09/14/24 Assessment & Plan Assessment & Plan (1) CKD (chronic kidney disease) stage 4, GFR 15-29 ml/min: Code(s): N18.4 - Chronic kidney disease, stage 4 (severe) Category: Medical Plan 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 He had KHADRA on CKD needing renal replacement in the past. He is off HD for a long time. His renal functions are currently stable. His UO is good. His BP is at goal. He maintains good hydration and does not take NSAID's regularly. He will be a candidate for SGLT2 i , if his creatinine clearance permits. His BP is currently at goal on current medications. I have ordered work up including iron studies. He will be a candidate for Procrit soon based on evolving data. Answered all questions. Follow up given Orders: Orders Complete Blood Count Auto Diff 3 Weeks N18.4 - Chronic kidney disease, stage 4 (severe) IRON PROFILE 3 Weeks N18.4 - Chronic kidney disease, stage 4 (severe) Electrolytes 3 Weeks N18.4 - Chronic kidney disease, stage 4 (severe) Calcium 3 Weeks N18.4 - Chronic kidney disease, stage 4 (severe) Immunofixation Pnl, Serum 3 Weeks N18.4 - Chronic kidney disease, stage 4 (severe) Protein Creatinine Ratio, Ur 3 Weeks N18.4 - Chronic kidney disease, stage 4 (severe) Albumin Level 3 Weeks N18.4 - Chronic kidney disease, stage 4 (severe) Ferritin 3 Weeks N18.4 - Chronic kidney disease, stage 4 (severe) Parathyroid Hormone Intact 3 Weeks N18.4 - Chronic kidney disease, stage 4 (severe) Phosphorus 3 Weeks N18.4 - Chronic kidney disease, stage 4 (severe) Creatinine 3 Weeks N18.4 - Chronic kidney disease, stage 4 (severe) Blood Urea Nitrogen 3 Weeks N18.4 - Chronic kidney disease, stage 4 (severe) Vitamin D 25-OH Total 3 Weeks N18.4 - Chronic kidney disease, stage 4 (severe) Coding Level of Care Code New Pt Level 4 (96787) Diagnoses CKD (chronic kidney disease) stage 4, GFR 15-29 ml/min N18.4
[2024-09-24 11:36] VITALS: BP 114/60; PULSE 56; O2SAT 95; BMI 40.9
--- OUTSIDE RECORDS SUMMARY | 2024-09-24 13:02 | XMS_ITS | Clinical Summary ---
Author Organization [employer] Address [address] [place] [address] [place] [address] Care Team Providers Care Supervisor Display Fabrication Name Role Phone Unavailable Primary Care Provider Unavailabl e Allergies Active Allergy Reactions Criticality Noted Date Comments Ceftriaxone 06/16/2024 Medications nystatin (Mycostatin) 025104 UNIT/GM powder 4 Active traMADol (Ultram) 50 [...] Description 08/04/2024 10:00 AM EST Office Visit [facility] [address] [place] [address] Jesus Dejesus DMD 07/28/2024 1:00 PM EST Office Visit [facility] [address] [place] [address] Jesus Dejesus DMD 07/05/2024 10:00 AM EST Office Visit [facility] [address] [place] [address] Melissa Larson from Last 3 Months Social [...]
--- OUTSIDE RECORDS SUMMARY | 2024-09-24 13:02 | XMS_ITS | Clinical Summary ---
Author Organization [facility] Address [address] [place] [address] Phone Care Team Providers Care Outsole Cementer Name Role Phone Vladimir Keys MD Primary Care Provider [phone] Allergies No known active allergies Medications acetaminophen [...] (09/18/2021): Added automatically from request for surgery [id number] Immunizations Name Administration Dates Next Due Influenza, [...] 2024 , 03/05/2020, 03/14/2017, Additional history exists Diabetes: Hemoglobin A1C 09/20/2024 04/17/2022, 03/14 Diabetes: Ophthalmology Exam 09/20/2024 Diabetes: Pedal Pulse Checked 09/20/2024 Diabetes: Sensory Foot Exam 09/20/2024 Diabetes: Visual Foot Exam 09/20/2024 Hepatitis B Vaccine Aged Out No longe r eligible based on patient's age to complete this topic Procedures Procedure Name Priority Date/Time Associated Diagnosis Comments SPECIAL CHEMISTRY Routine 04/17/2022 3:0 0 PM EDT from Last 3 Months or Most Recently Relevant to Health Maintenance Results * SPECIAL CHEMISTRY (04/17/2022 3:00 PM EDT) Hemoglobin A1C 5.8 4.8 - 5.9 % APS SPECTRA PVNMA 04/17/2022 3:00 PM EDT 04/18/2022 7:02 AM EDT Narrative APS SPECTRA PVNMA - 04/17/2022 3:00 PM EDT Unless otherwise specified, test(s) performed at: [facility] [address] ENVIRONMENTAL EDUCATOR: Chris Gomez M.D. For any questions, please call customer service at FREQUENCY:MONTHLY Resulting Agency Comment Specimen source: Blood Brian Saldaña MD LAB BLOOD BANK TEST ORDERABLES F inal Result APS EBONIE PVNMA from Last 3 Months or Most Recently Relevant to Health Maintenance Insurance MEDICARE [facility] MEDICARE [facility] Care Teams Outsole Cementer Relationship Specialty Start Date End Date Vladimir Keys MD [address] [place] [address], [address] [place], [place] PCP - General 07/24/20
--- OUTSIDE RECORDS SUMMARY | 2024-09-24 13:02 | XMS_ITS | Clinical Summary ---
Author Organization [facility] it Address [address] [place] [address] Care Team Providers Care Shoe Reconditioner Name Role Phone Unavailable Primary Care Provider [...]
== END 2024-09-24 12:19 | disposition home or self-care (01) ==
LOC: HO.HKA 11:16
PROVIDERS: PCP Internal Medicine Endocrinology, Diabetes & Metabolism; Referring Provider Internal Medicine Endocrinology, Diabetes & Metabolism; Visit Provider Internal Medicine Nephrology
DX: N18.4 Chronic kidney disease, stage 4 (severe) (principal)
CPT/HCPCS: 99204

== ENCOUNTER → 2024-09-24 11:16 | Outpatient (BNVA) | payer MEDICARE, SELFPAY | PROVIDERS: PCP Internal Medicine Endocrinology, Diabetes & Metabolism; Referring Provider Internal Medicine Endocrinology, Diabetes & Metabolism; Visit Provider Internal Medicine Nephrology | DX: I12.9 Hypertensive chronic kidney disease with stage 1 through stage 4 chronic kidney disease, or unspecified chronic kidney disease (principal); N18.4 Chronic kidney disease, stage 4 (severe) | CPT/HCPCS: 99202 ==

== ENCOUNTER 2024-10-04 07:45 | Outpatient (REF) | payer MEDICARE, SELFPAY ==
[2024-10-04 08:28] LABS: INTERNATIONAL NORM RATIO 2.2 (0.9-1.1); Prothrombin Time 26.1 SEC (10.9-12.4)
== END 2024-10-04 07:46 | disposition home or self-care (01) ==
LOC: HO.HSH2E 07:45
PROVIDERS: Visit Provider Internal Medicine Endocrinology, Diabetes & Metabolism
DX: Z95.2 Presence of prosthetic heart valve (principal)
CPT/HCPCS: 36415; 85610

== ENCOUNTER 2024-10-15 00:05 | Outpatient (REF) | payer MEDICARE, SELFPAY ==
--- OUTSIDE RECORDS SUMMARY | 2024-10-15 01:56 | XMS_ITS | Clinical Summary ---
Author Organization [employer] Address [address] [place] [address] [place] [address] Care Team Providers Care Pickling Operator Name Role Phone Unavailable Primary Care Provider Unavailabl e Allergies Active Allergy Reactions Criticality Noted Date Comments Ceftriaxone 06/16/2024 Medications nystatin (Mycostatin) 783746 UNIT/GM powder 4 Active traMADol (Ultram) 50 [...] Encounters Date Type Department Care Team Description 10/06/2024 3:15 PM EDT Office Visit [facility] [address] [place] [address] Melissa Larson 08/04/2024 10:00 AM EST Office Visit [facility] [address] [place] [address] Jesus Dejesus DMD 07/28/2024 1:00 PM EST Office Visit [facility] [address] [place] [address] Jesus Dejesus DMD from Last 3 Months [...] Mass Index - - Plan of Treatment Upcoming Encounters Date Type Department Care Team (Late st Contact Info) Description 10/20/2024 2:00 PM EDT Office Visit [facility] [address] [place] [address] Jesus Dejesus, DMD [address] [facility] [place] [address] Health Maintenance Due Date Last Done Comments Dental Oral Exam 1943 Dental X-Ray: Bitewings 1943 Depression Screening 1943 Lipid Panel 1943 SDOH Screening 1943 Alcohol/Substance Use Screening 1955 DTaP/Tdap/Td Vaccines (1 - Tdap) 1962 Pneumococcal Vaccine: 50+ Years (1 of 1 - PCV) 1993 Zoster Vaccines (1 of 2) 1993 RSV Patients and Patients Aged 60 years or older (1 - 1-dose 75+ series) 2018 COVID-19 Vaccine ( - 2023-2 5 season) 2024 Influenza Vaccine (#1) 2024 Dental Prophylaxis 04/09/2025 10/06/2024, 07/05/2024 Tobacco Screening 10/06/2025 10/06/2024 Dental X-Ray: Full Mouth 05/06/2027 05/05/2024 HIB Vaccines Aged Out No longer eligi [...] Procedure Name Priority Date/Time Associated Diagnosis Comments COMPREHENSIVE PERIODONTAL EVALUATION - NEW OR ESTABLISHED PATIENT Routine 10/06/2024 3:15 PM EDT ORAL HYGIENE INSTRUCTIONS Routine 2024 3:15 PM EDT TOPICAL APPLICATION OF FLUORIDE VARNISH Routine 10/06/2024 3:15 PM EDT PROPHYLAXIS - ADULT Routine 10/06/2024 3 :15 PM EDT 26 I RESIN-BASED COMPOSITE - 1 SURF, [...] SURFACES (ANTERIOR) Routine 07/28/2024 1:00 PM EST from Last 3 Months
--- OUTSIDE RECORDS SUMMARY | 2024-10-15 01:56 | XMS_ITS | Clinical Summary ---
Author Organization [facility] Address [address] [place] [address] Phone Care Team Providers Care Store Specialist Name Role Phone Vladimir Keys MD Primary Care Provider [phone] Allergies No known active allergies Medications acetaminophen [...] (09/18/2021): Added automatically from request for surgery [id number] Immunizations Name Administration Dates Next Due Influenza, Unspecified 04/24/2021,2019,03/14/2017,03/31/2016, 5 Pfizer SARS-COV-2 11/21/2020,10/29/2020 Family History Medical History Relation Comments Diabetes Father Heart disease Father [place] Stroke Mother Relation Status Comments Father Mother [...] EDT Unless otherwise specified, test(s) performed at: [facility] [address] SPARE PERSON: Chris Gomez M.D. For any questions, please call customer service at FREQUENCY:MONTHLY Resulting Agency Comment Specimen source: Blood Brian Saldaña MD LAB BLOOD BANK TEST ORDERABLES F inal Result APS EBONIE PVNMA from Last 3 Months or Most Recently Relevant to Health Maintenance Insurance MEDICARE [facility] MEDICARE [facility] Care Teams Store Specialist Relationship Specialty Start Date End Date Vladimir Keys MD [address] [place] [address], [address] [place], [place] PCP - General 07/24/20
--- OUTSIDE RECORDS SUMMARY | 2024-10-15 01:56 | XMS_ITS | Clinical Summary ---
Author Organization [facility] it Address [address] [place] [address] Care Team Providers Care Shop Girl Name Role Phone Unavailable Primary Care Provider [...] Vaccines (1 of 2) 1993 RSV Immunization Adult Patie nts (1 - 1-dose 75+ series) 2018 Cholesterol Screening (Lipid Panel) 06/16/2022 Depression Screening 06/16/2022 Falls Risk Assessment 06/16/2022 Social Influencers of Health Screening 06/16/2022 COVID-19 Vaccine (1 - 2023-2 5 season) 2024 Influenza Vaccine [...]
[2024-10-15 02:11] LABS: Creatinine Urine 77.33 mg/dL; Protein/Creatinine Ratio, Ur 0.18 (<0.2); Total Protein Urine Random 14 mg/dL (<12)
== END 2024-10-15 00:06 | disposition home or self-care (01) ==
LOC: HO.HSH2E 00:05
PROVIDERS: Visit Provider Internal Medicine Endocrinology, Diabetes & Metabolism
DX: Z13.89 Encounter for screening for other disorder (principal)
CPT/HCPCS: 82570; 84156

== ENCOUNTER 2024-10-15 07:35 | Outpatient (REF) | payer MEDICARE, SELFPAY ==
--- OUTSIDE RECORDS SUMMARY | 2024-10-15 07:39 | XMS_ITS | Clinical Summary ---
Author Organization [facility] it Address [address] [place] [address] Care Team Providers Care Supervisor Film Processing Name Role Phone Unavailable Primary Care Provider [...]
--- OUTSIDE RECORDS SUMMARY | 2024-10-15 07:39 | XMS_ITS | Clinical Summary ---
Author Organization [facility] Address [address] [place] [address] [place] [address] Care Team Providers Care Patcher Wood Welder Name Role Phone Unavailable Primary Care Provider Unavailabl e Allergies Active Allergy Reactions Criticality Noted Date Comments Ceftriaxone 06/16/2024 Medications nystatin (Mycostatin) 970792 UNIT/GM powder 4 Active traMADol (Ultram) 50 [...] Description 10/06/2024 3:15 PM EDT Office Visit [facility] [address] [place] [address] Melissa Larson 08/04/2024 10:00 AM EST Office Visit [facility] [address] [place] [address] Jseus Dejesus DMD 07/28/2024 1:00 PM EST Office Visit [facility] [address] [place] [address] Jesus Dejesus DMD from Last 3 Months [...] Description 10/20/2024 2:00 PM EDT Office Visit [facility] [address] [place] [address] Jesus Dejesus, DMD [address] [facility] [place] [address] Health Maintenance Due Date Last Done Comments [...]
--- OUTSIDE RECORDS SUMMARY | 2024-10-15 07:39 | XMS_ITS | Clinical Summary ---
Author Organization [facility] Address [address] [place] [address] Phone Care Team Providers Care Honing Machine Operator Tool Name Role Phone Vladimir Keys MD Primary Care Provider [phone] Allergies No known active allergies Medications acetaminophen [...] (09/18/2021): Added automatically from request for surgery [id number] Immunizations Name Administration Dates Next Due Influenza, Unspecified 04/24/2021,2019,03/14/2017,03/31/2016, 5 Pfizer SARS-COV-2 11/21/2020,10/29/2020 Family History Medical History Relation Comments Diabetes Father Heart disease Father [place] Stroke Mother Relation Status Comments Father Mother [...] EDT Unless otherwise specified, test(s) performed at: [facility] [address] SENIOR WINDOWS ADMINISTRATOR: Chris Gomez M.D. For any questions, please call customer service at FREQUENCY:MONTHLY Resulting Agency Comment Specimen source: Blood Brian Saldaña MD LAB BLOOD BANK TEST ORDERABLES F inal Result APS EBONIE PVNMA from Last 3 Months or Most Recently Relevant to Health Maintenance Insurance MEDICARE [facility] MEDICARE [facility] Care Teams Honing Machine Operator Tool Relationship Specialty Start Date End Date Vladimir Keys MD [address] [place] [address], [address] [place], [place] PCP - General 07/24/20
[2024-10-15 07:41] LABS: MANUAL DIFF FLAG NO
[2024-10-15 08:14] LABS: Eosinophils Absolute Auto 0.3 X10*3/uL (0.0-0.4); Hematocrit 29.4 % (42.0-52.0); Hemoglobin 9.2 g/dl (14.0-18.0); Imm Gran Abs Auto 0.01 X10*3/uL (0.00-0.03); Imm Gran Pct Auto 0.3 % (0.0-0.4); Lymphocytes Absolute Auto 0.7 X10*3/uL (1.2-4.9); Mean Corpuscular HGB Conc 31.3 g/dl (31.0-36.0); Mean Corpuscular Hemoglobin 30.4 pg (27.0-33.0); Mean Platelet Volume 11.6 fL (9.4-12.4); Monocytes Absolute Auto 0.5 X10*3/uL (0.1-1.2); Monocytes Percent Auto 12.1 % (2-11); Neutrophils Absolute Auto 2.4 x10*3/uL (2.0-8.3); Neutrophils Percent Auto 62.6 % (45-73); Platelet Count 155 X10*3/uL (160-400); Red Blood Count 3.03 X10*6/uL (4.60-5.80); Red Cell Distribution Width 15.3 % (11.0-16.0); White Blood Count 3.9 X10*3/uL (4.8-10.8)
[2024-10-15 08:40] LABS: Alanine Aminotransferase < 6 U/L (0-40); Albumin Level 3.2 g/dL (3.5-5.0); Alkaline Phosphatase 83 U/L (39-117); Anion Gap 10 (12-20); Aspartate Amino Transferase 31 U/L (5-37); Bilirubin Total 0.5 mg/dL (0.0-1.0); Blood Urea Nitrogen 57 mg/dL (9-16); Carbon Dioxide 25 mmol/L (22-29); Chloride 106 mmol/L (96-108); Estimated Glomerular Filt Rate 31; Glucose Random 78 mg/dL (60-115); Iron 49 mcg/dL (45-160); Percent Iron Saturation 25 % (15-50); Potassium 4.2 mmol/L (3.3-5.1); Sodium 137 mmol/L (135-145); Total Iron Binding Capacity 197 mcg/dL (228-428); Total Protein 6.3 g/dL (6.5-8.0); Unsaturated Iron Binding 148 ug/dL
[2024-10-15 08:51] LABS: Ferritin 75 ng/mL (20-250)
[2024-10-19 11:13] LABS: IgA 294 mg/dL (70-320); IgG 1662 mg/dL (600-1540); IgM 116 mg/dL (50-300)
== END 2024-10-15 07:36 | disposition home or self-care (01) ==
LOC: HO.HSH2E 07:35
PROVIDERS: Visit Provider Internal Medicine Endocrinology, Diabetes & Metabolism
DX: N18.9 Chronic kidney disease, unspecified (principal)
CPT/HCPCS: 36415; 80053; 82570; 82728; 82784; 83540; 84156; 85025; 86334

== ENCOUNTER 2024-10-18 08:02 | Outpatient (REF) | payer MEDICARE, SELFPAY ==
--- OUTSIDE RECORDS SUMMARY | 2024-10-18 08:15 | XMS_ITS | Clinical Summary ---
Author Organization [facility] it Address [address] [place] [address] Care Team Providers Care Nut Former Name Role Phone Unavailable Primary Care Provider [...]
--- OUTSIDE RECORDS SUMMARY | 2024-10-18 08:15 | XMS_ITS | Clinical Summary ---
Author Organization [employer] Address [address] [place] [address] [place] [address] Care Team Providers Care Bioinformatics Scientist Name Role Phone Unavailable Primary Care Provider Unavailabl e Allergies Active Allergy Reactions Criticality Noted Date Comments Ceftriaxone 06/16/2024 Medications nystatin (Mycostatin) 308233 UNIT/GM powder 4 Active traMADol (Ultram) 50 [...] Description 10/06/2024 3:15 PM EDT Office Visit [facility] D[facility] [address] [place] [address] Melissa Larson 08/04/2024 10:00 AM EST Office Visit [facility] [address] [place] [address] Jesus Dejesus DMD 07/28/2024 1:00 PM EST Office Visit [facility] [address] [place] [address] Jesus Dejesus DMD from Last 3 Months [...] Description 10/20/2024 2:00 PM EDT Office Visit [facility] [address] [place] [address] Jesus Dejesus, DMD [address] [place] [address] Health Maintenance Due Date Last Done Comments [...]
--- OUTSIDE RECORDS SUMMARY | 2024-10-18 08:15 | XMS_ITS | Clinical Summary ---
Author Organization [facility] Address [address] [place] [address] Phone Care Team Providers Care Quantitative Analyst Marketing Name Role Phone Vladimir Keys MD Primary Care Provider [phone] Allergies No known active allergies Medications acetaminophen [...] (09/18/2021): Added automatically from request for surgery [id number] Immunizations Name Administration Dates Next Due Influenza, Unspecified 04/24/2021,2019,03/14/2017,03/31/2016, 5 Pfizer SARS-COV-2 11/21/2020,10/29/2020 Family History Medical History Relation Comments Diabetes Father Heart disease Father [place] Stroke Mother Relation Status Comments Father Mother [...] Years (1 of 2 - PCV) 1951 Diabetes: Hemoglobin A1C 09/20/2024 04/17/2022, 03/14 Diabetes: Ophthalmology Exam 09/20/2024 Diabetes: Pedal Pulse Checked 09/20/2024 Diabetes: Sensory Foot Exam 09/20/2024 Diabetes: Visual Foot Exam 09/20/2024 Influenza Vaccine (Season Ended) 2025 04/24/2021, 03/05/2020, 03/14/2017, Additional history exists Hepatitis B [...] EDT Unless otherwise specified, test(s) performed at: [facility] [address] LAW ENFORCEMENT INSTRUCTOR: Chris Gomez M.D. For any questions, please call customer service at FREQUENCY:MONTHLY Resulting Agency Comment Specimen source: Blood Brian Saldaña MD LAB BLOOD BANK TEST ORDERABLES F inal Result APS EBONIE PVNMA from Last 3 Months or Most Recently Relevant to Health Maintenance Insurance MEDICARE [facility] MEDICARE [facility] Care Teams Quantitative Analyst Marketing Relationship Specialty Start Date End Date Vladimir Keys MD [address] [place] [address], [address] [place], [place] PCP - General 07/24/20
[2024-10-18 08:33] LABS: INTERNATIONAL NORM RATIO 2.4 (0.9-1.1); Prothrombin Time 28.3 SEC (10.9-12.4)
[2024-10-18 09:09] LABS: Prostate Specific Antigen 11.65 ng/mL (<0.05-4.0)
== END 2024-10-18 08:03 | disposition home or self-care (01) ==
LOC: HO.HSH2E 08:02
PROVIDERS: Visit Provider Internal Medicine Endocrinology, Diabetes & Metabolism
DX: Z87.438 Personal history of other diseases of male genital organs (principal); Z12.5 Encounter for screening for malignant neoplasm of prostate
CPT/HCPCS: 36415; 84153; 85610

== ENCOUNTER 2024-10-27 11:31 | Outpatient (AMB) | payer MEDICARE, SELFPAY ==
--- NOTE | 2024-10-27 11:56 | HO.NEPHOV_ITS ---
Vital Signs 10/27/24 12:00 Height 5 ft 11 in BP 90/50 L Blood Pressure Location Lt brachial Position Sitting Intake Visit Reasons: 1 Month Follow up-Conf Allergies ceftriaxone Allergy (Verified 09/24/24 11:35) Unknown HPI Comments Details: I had the pleasure of seeing Gume who was accompanied by his family for his advanced CKD as well as anemia of chronic kidney disease on a backdrop of Hypertension and DM. He has H/O KHADRA needing renal replacement in the past. He has no uremic symptoms or hypoglycemias. He has H/O BPH and is on finasteride. His appetite is good. He denies nausea, vomiting, diarrhea, chest pain, hemoptysis, hemetemesis, melena, recurrent sinusitis or renal calculi. He does not have any orthostatic symptoms. He does not take NSAID's regularly. He does not have any new bone or back pain. He recently received 20 K units of Procrit in [facility] with improvement in Hb. He recently was also started on Amlodipine 2.5 mg daily . He has been receiving Amlodipine as well as metoprolol in the morning with drop in BP. His appetite has improved and wants his renal diet changed. [facility] Medical History (Updated 10/27/24 @ 21:47 by Porfirio Melara MD) Hx of decubitus ulcer Former smoker Peripheral neuropathy Compartment syndrome of right lower extremity Osteoarthritis Pancreatic cyst Gout ASHD (arteriosclerotic heart disease) Aortic stenosis Chronic kidney disease Chronic combined systolic and diastolic CHF (congestive heart failure) Nonrheumatic aortic (valve) stenosis Anemia Endocarditis Afib Obesity Hyperlipidemia Murmur HTN (hypertension) Neuropathy Diabetes Surgical History Hx of ankle fusion History of total bilateral knee replacement Hx of aortic valve replacement Social History Patient Tobacco Use Status: Former Tobacco user Review of Systems Const All systems reviewed & are unremarkable except as noted in HPI and below Physical Exam Vital Signs: Last Vital Signs BP 80/50 L 10/27/24 12:00 Const General: comfortable and no acute distress Orientation/consciousness: patient oriented x3 HEENT Head: Yes normocephalic Mouth: Normal oral and palatal mucosa present Eyes EOM: EOMs intact bilaterally Neck Neck: Yes supple Resp Auscultation: clear to auscultation bilaterally Cardio Jugular venous distension: no JVD Rate: regular rate GI Palpation (GI): Soft to palpation Auscultation: normal bowel sounds General: Yes no CVA tenderness Back/Spine/Pelvis Back: no CVA tenderness Skin General skin exam: no rashes or lesions noted Neuro General: patient oriented x3 and moves all extremities Extrem General: Yes no pedal edema Results Reviewed Nephrology Results: Hgb 9.2 g/dl (14.0-18.0) L 10/15/24 WBC 3.9 X10*3/uL (4.8-10.8) L 10/15/24 Plt Count 155 X10*3/uL (160-400) L 10/15/24 Sodium 137 mmol/L (135-145) 10/15/24 Potassium 4.2 mmol/L (3.3-5.1) 10/15/24 Chloride 106 mmol/L (96-108) 10/15/24 Carbon Dioxide 25 mmol/L (22-29) 10/15/24 BUN 57 mg/dL (9-16) H 10/15/24 Creatinine 2.09 mg/dL (0.5-1.4) H 10/15/24 Calcium 10.0 mg/dL (8.4-10.2) 10/15/24 Urine Creatinine 77.33 mg/dL 10/15/24 Protein/Creatinin Ratio 0.18 (<0.2) 10/15/24 Assessment & Plan Assessment & Plan (1) CKD (chronic kidney disease) stage 4, GFR 15-29 ml/min: Code(s): N18.4 - Chronic kidney disease, stage 4 (severe) Category: Medical (2) Anemia due to stage 4 chronic kidney disease: Code(s): N18.4 - Chronic kidney disease, stage 4 (severe); D63.1 - Anemia in chronic kidney disease Category: Medical (3) HTN (hypertension): Code(s): I10 - Essential (primary) hypertension Category: Medical Qualifiers: Hypertension type: primary hypertension Qualified Code(s): I10 - Essential (primary) hypertension Plan 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 He had KHADRA on CKD needing renal replacement in the past. He is off HD for a long time. His renal functions are currently stable/marginally better . His UO is good. His BP had been high and low dose of Amlodipine has been added. He should get metoprolol AM and Amlodipine PM. He does not need a renal diet and its diet can be liberalized. He should get CBC checked every 3 weeks and should receive 89283 of Procrit every 4 weeks to keep his Hb close to 11 G/dl. He maintains good hydration and does not take NSAID's regularly. He will be a candidate for SGLT2 i , if his creatinine clearance permits. Answered all questions. Follow up given Orders: Orders Complete Blood Count Auto Diff 2 Months D63.1 - Anemia in chronic kidney disease, N18.4 - Chronic kidney disease, stage 4 (severe) Creatinine 2 Months D63.1 - Anemia in chronic kidney disease, N18.4 - Chronic kidney disease, stage 4 (severe) Electrolytes 2 Months D63.1 - Anemia in chronic kidney disease, N18.4 - Chronic kidney disease, stage 4 (severe) Blood Urea Nitrogen 2 Months D63.1 - Anemia in chronic kidney disease, N18.4 - Chronic kidney disease, stage 4 (severe) Parathyroid Hormone Intact 2 Months N18.4 - Chronic kidney disease, stage 4 (severe) Vitamin D 25-OH Total 2 Months N18.4 - Chronic kidney disease, stage 4 (severe) Coding Level of Care Code Est Pt Level 4 (65240) Diagnoses CKD (chronic kidney disease) stage 4, GFR 15-29 ml/min N18.4 Anemia due to stage 4 chronic kidney disease N18.4; D63.1 Primary hypertension I10 Hypertension type: primary hypertension
[2024-10-27 12:00] VITALS: BP 90/50
--- OUTSIDE RECORDS SUMMARY | 2024-10-27 13:59 | XMS_ITS | Clinical Summary ---
Author Organization [employer] Address [address] [place] [address] [place] [address] Care Team Providers Care Lead Applier Name Role Phone Unavailable Primary Care Provider Unavailabl e Allergies Active Allergy Reactions Criticality Noted Date Comments Ceftriaxone 06/16/2024 Medications nystatin (Mycostatin) 006115 UNIT/GM powder 4 Active traMADol (Ultram) 50 [...] Do not crush, chew, or split. Active Active Problems No known active problems Encounters Date Type Department Care Team Description 10/20/2024 2:00 PM EDT Office Visit [facility] [address] [place] [address] Jesus Dejesus DMD 10/06/2024 3:15 PM EDT Office Visit [facility] [address] [place] [address] Melissa Larson 08/04/2024 10:00 AM EST Office Visit [facility] [address] [place] [address] Jesus Dejesus DMD from Last 3 Months [...] Sign Reading Time Taken Comments Blood Pressure 130/80 10/20/2024 2:03 PM EDT Pulse 69 10/20/2024 2:03 PM EDT Temperature - - Respiratory Rate [...] Dental Prophylaxis 04/09/2025 10/06/2024, 07/05/2024 Tobacco Screening 10/20/2025 10/20/2024 Dental X-Ray: Full Mouth 05/06/2027 05/05/2024 HIB [...] Procedure Name Priority Date/Time Associated Diagnosis Comments 10 DIL RESIN-BASED COMPOSITE - 3 SURF, ANTERIOR Routine 10/20/2024 2:00 PM EDT COMPREHENSIVE PERIODONTAL EVALUATION - NEW OR ESTABLISHED [...] SURF, ANTERIOR Routine 08/04/2024 10:00 AM EST from Last 3 Months
--- OUTSIDE RECORDS SUMMARY | 2024-10-27 13:59 | XMS_ITS | Clinical Summary ---
Author Organization [facility] it Address [address] [place] [address] Care Team Providers Care Enrollment Management Vice President Name Role Phone Unavailable Primary Care Provider [...] - 2023-2 5 season) 2024 Influenza Vaccine (Season Ended) 2025 HIB Vaccines Aged Out No longer eligi [...] age to complete this topic Meningococcal B Vaccine Aged Out No l onger eligible based on patient's age to complete this topic RSV Immunization Patients Un gonzalo 20 months Aged Out No longer eligible b ased on patient's age to complete this topic Varicella Vaccines Aged Out No longer eligible based on patient's age to complete this topic
--- OUTSIDE RECORDS SUMMARY | 2024-10-27 13:59 | XMS_ITS | Clinical Summary ---
Author Organization [facility] Address [address] [place] [address] Phone Care Team Providers Care Medical Affairs Manager Name Role Phone Vladimir Keys MD Primary Care Provider [phone] Allergies No known active allergies Medications acetaminophen [...] (09/18/2021): Added automatically from request for surgery [id number] Immunizations Immunization Administration Dates Next Due Influenza, Unspecified 04/24/2021,2019,03/14/2017,03/31/2016, 5 Pfizer SARS-COV-2 11/21/2020,10/29/2020 Family History Medical History Relation Comments Diabetes Father Heart disease Father [place] Stroke Mother Relation Status Comments Father Mother [...] Due Date Last Done Comments Pneumococcal Vaccine: 50+ Years (1 of 2 - PCV) 1964 Diabetes: Hemoglobin A1C 09/20/2024 04/17/2022, 03/14 Diabetes: [...] EDT Unless otherwise specified, test(s) performed at: [facility] [address] COMPUTER ARCHITECT: Chris Gomez M.D. For any questions, please call customer service at FREQUENCY:MONTHLY Resulting Agency Comment Specimen source: Blood Brian Saldaña MD LAB BLOOD BANK TEST ORDERABLES F inal Result APS EBONIE PVNMA from Last 3 Months or Most Recently Relevant to Health Maintenance Insurance Medicare [facility] Medicare [facility] Care Teams Medical Affairs Manager Relationship Specialty Start Date End Date Vladimir Keys MD [address] [place] [address], [address] [place], [place] PCP - General 07/24/20
== END 2024-10-27 12:42 | disposition home or self-care (01) ==
LOC: HO.HKA 11:32
PROVIDERS: PCP Internal Medicine Endocrinology, Diabetes & Metabolism; Visit Provider Internal Medicine Nephrology
DX: I12.9 Hypertensive chronic kidney disease with stage 1 through stage 4 chronic kidney disease, or unspecified chronic kidney disease (principal); N18.4 Chronic kidney disease, stage 4 (severe); D63.1 Anemia in chronic kidney disease
CPT/HCPCS: 99214

== ENCOUNTER → 2024-10-27 11:31 | Outpatient (BNVA) | payer MEDICARE, SELFPAY | PROVIDERS: PCP Internal Medicine Endocrinology, Diabetes & Metabolism; Visit Provider Internal Medicine Nephrology | DX: I12.9 Hypertensive chronic kidney disease with stage 1 through stage 4 chronic kidney disease, or unspecified chronic kidney disease (principal); N18.4 Chronic kidney disease, stage 4 (severe); D63.1 Anemia in chronic kidney disease | CPT/HCPCS: 99212 ==

== ENCOUNTER 2024-10-29 07:53 | Outpatient (REF) | payer MEDICARE, SELFPAY ==
[2024-10-29 07:57] LABS: MANUAL DIFF FLAG NO
--- OUTSIDE RECORDS SUMMARY | 2024-10-29 07:58 | XMS_ITS | Clinical Summary ---
Author Organization [facility] it Address [address] [place] [address] Care Team Providers Care Denture Finisher Name Role Phone Unavailable Primary Care Provider [...]
--- OUTSIDE RECORDS SUMMARY | 2024-10-29 07:58 | XMS_ITS | Clinical Summary ---
Author Organization [facility] Address [address] [place] [address] Phone Care Team Providers Care Quality Control Lab Technician Name Role Phone Vladimir Keys MD Primary Care Provider [phone] Allergies No known active allergies Medications acetaminophen [...] (09/18/2021): Added automatically from request for surgery [id number] Immunizations Immunization Administration Dates Next Due Influenza, [...] EDT Unless otherwise specified, test(s) performed at: [facility] [address] ROD TAPE OPERATOR: Chris Gomez M.D. For any questions, please call customer service at FREQUENCY:MONTHLY Resulting Agency Comment Specimen source: Blood Brian Saldaña MD LAB BLOOD BANK TEST ORDERABLES F inal Result APS EBONIE PVNMA from Last 3 Months or Most Recently Relevant to Health Maintenance Insurance Medicare [facility] Medicare [facility] Care Teams Quality Control Lab Technician Relationship Specialty Start Date End Date Vladimir Keys MD [address] [place] [address], [address] [place], [place] PCP - General 07/24/20
--- OUTSIDE RECORDS SUMMARY | 2024-10-29 07:58 | XMS_ITS | Clinical Summary ---
Author Organization [employer] Address [address] [place] [address] [place] [address] Care Team Providers Care Heat Treat Technician Name Role Phone Unavailable Primary Care Provider Unavailabl e Allergies Active Allergy Reactions Criticality Noted Date Comments Ceftriaxone 06/16/2024 Medications nystatin (Mycostatin) 194431 UNIT/GM powder 4 Active traMADol (Ultram) 50 [...] Description 10/20/2024 2:00 PM EDT Office Visit [facility] [address] [place] [address] Jesus Dejesus DMD 10/06/2024 3:15 PM EDT Office Visit [facility] [address] [place] [address] Melissa Larson 08/04/2024 10:00 AM EST Office Visit [facility] [address] [place] [address] Jesus Dejesus DMD from Last 3 Months [...]
[2024-10-29 08:11] LABS: Basophils Percent Auto 0.8 % (0-2); Eosinophils Absolute Auto 0.3 X10*3/uL (0.0-0.4); Eosinophils Percent Auto 5.7 % (0-4); Hematocrit 27.4 % (42.0-52.0); Hemoglobin 8.7 g/dl (14.0-18.0); Imm Gran Abs Auto 0.02 X10*3/uL (0.00-0.03); Imm Gran Pct Auto 0.4 % (0.0-0.4); Lymphocytes Absolute Auto 0.6 X10*3/uL (1.2-4.9); Lymphocytes Percent Auto 11.6 % (20-40); Mean Corpuscular HGB Conc 31.8 g/dl (31.0-36.0); Mean Corpuscular Volume 94.5 fL (80.0-98.0); Mean Platelet Volume 11.4 fL (9.4-12.4); Monocytes Absolute Auto 0.4 X10*3/uL (0.1-1.2); Monocytes Percent Auto 8.7 % (2-11); Neutrophils Absolute Auto 3.6 x10*3/uL (2.0-8.3); Neutrophils Percent Auto 72.8 % (45-73); Platelet Count 190 X10*3/uL (160-400); Red Cell Distribution Width 14.8 % (11.0-16.0); White Blood Count 4.9 X10*3/uL (4.8-10.8)
== END 2024-10-29 07:54 | disposition home or self-care (01) ==
LOC: HO.HSH2E 07:53
PROVIDERS: Visit Provider Internal Medicine Endocrinology, Diabetes & Metabolism
DX: D64.9 Anemia, unspecified (principal)
CPT/HCPCS: 36415; 85025

== ENCOUNTER 2024-11-01 06:54 | Outpatient (REF) | payer MEDICARE, SELFPAY ==
[2024-11-01 07:20] LABS: INTERNATIONAL NORM RATIO 3.5 (0.9-1.1); Prothrombin Time 41.3 SEC (10.9-12.4)
== END 2024-11-01 06:55 | disposition home or self-care (01) ==
LOC: HO.HSH2E 06:54
PROVIDERS: Visit Provider Internal Medicine Endocrinology, Diabetes & Metabolism
DX: Z79.01 Long term (current) use of anticoagulants (principal)
CPT/HCPCS: 36415; 85610

== ENCOUNTER 2024-11-05 06:59 | Outpatient (REF) | payer MEDICARE, SELFPAY ==
--- OUTSIDE RECORDS SUMMARY | 2024-11-05 07:02 | XMS_ITS | Clinical Summary ---
Author Organization [facility] Address [address] [place] [address] Phone Care Team Providers Care Truck Trailer Mechanic Name Role Phone Vladimir Keys MD Primary Care Provider [phone] Allergies No known active allergies Medications acetaminophen [...] (09/18/2021): Added automatically from request for surgery [id number] Immunizations Immunization Administration Dates Next Due Influenza, Unspecified 04/24/2021,2019,03/14/2017,03/31/2016, 5 Pfizer SARS-COV-2 11/21/2020,10/29/2020 Family History Medical History Relation Comments Diabetes Father Heart disease Father [place] Stroke Mother Relation Status Comments Father Mother [...] EDT Unless otherwise specified, test(s) performed at: [facility] [address] HARDENER HELPER: Chris Gomez M.D. For any questions, please call customer service at FREQUENCY:MONTHLY Resulting Agency Comment Specimen source: Blood Brian Saldaña MD LAB BLOOD BANK TEST ORDERABLES F inal Result APS EBONIE PVNMA from Last 3 Months or Most Recently Relevant to Health Maintenance Insurance Medicare [facility] Medicare [facility] Care Teams Truck Trailer Mechanic Relationship Specialty Start Date End Date Vladimir Keys MD [address] [place] [place] [address], [address] [place], [place] PCP - General 07/24/20
--- OUTSIDE RECORDS SUMMARY | 2024-11-05 07:02 | XMS_ITS | Clinical Summary ---
Author Organization [facility] ity Address [address] [place] [address] Care Team Providers Care Rn Social Services Name Role Phone Unavailable Primary Care Provider [...]
[2024-11-05 07:17] LABS: Prothrombin Time 35.4 SEC (10.9-12.4)
== END 2024-11-05 07:00 | disposition home or self-care (01) ==
LOC: HO.HSH2E 06:59
PROVIDERS: Visit Provider Internal Medicine Endocrinology, Diabetes & Metabolism
DX: Z95.2 Presence of prosthetic heart valve (principal)
CPT/HCPCS: 36415; 85610

== ENCOUNTER 2024-11-12 06:45 | Outpatient (REF) | payer MEDICARE, SELFPAY ==
--- OUTSIDE RECORDS SUMMARY | 2024-11-12 06:50 | XMS_ITS | Clinical Summary ---
Author Organization [facility] it Address [address] [place] [address] Care Team Providers Care Elevators Inspector Name Role Phone Unavailable Primary Care [...]
--- OUTSIDE RECORDS SUMMARY | 2024-11-12 06:50 | XMS_ITS | Clinical Summary ---
Author Organization [facility] Address [address] [place] [address] Phone Care Team Providers Care Human Resources Benefits Administrator Name Role Phone Vladimir Keys MD Primary Care Provider [phone] Allergies No known active allergies Medications acetaminophen [...] (09/18/2021): Added automatically from request for surgery [id number] Immunizations Immunization Administration Dates Next Due Influenza, Unspecified 04/24/2021,2019,03/14/2017,03/31/2016, 5 Pfizer SARS-COV-2 11/21/2020,10/29/2020 Family History Medical History Relation Comments Diabetes Father Heart disease Father [place] Stroke Mother Relation Status Comments Father Mother [...] EDT Unless otherwise specified, test(s) performed at: [facility] [address] BOARD HANDLER: Chris Gomez M.D. For any questions, please call customer service at FREQUENCY:MONTHLY Resulting Agency Comment Specimen source: Blood Brian Saldaña MD LAB BLOOD BANK TEST ORDERABLES F inal Result APS EBONIE PVNMA from Last 3 Months or Most Recently Relevant to Health Maintenance Insurance Medicare [facility] Medicare [facility] Care Teams Human Resources Benefits Administrator Relationship Specialty Start Date End Date Vladimir Keys MD [address] [place] [address], [address] [place], [place] PCP - General 07/24/20
[2024-11-12 07:28] LABS: INTERNATIONAL NORM RATIO 3.1 (0.9-1.1); Prothrombin Time 36.5 SEC (10.9-12.4)
== END 2024-11-12 06:46 | disposition home or self-care (01) ==
LOC: HO.HSH2E 06:45
PROVIDERS: Visit Provider Internal Medicine Endocrinology, Diabetes & Metabolism
DX: I48.91 Unspecified atrial fibrillation (principal)
CPT/HCPCS: 36415; 85610

== ENCOUNTER 2024-11-19 07:59 | Outpatient (REF) | payer MEDICARE, SELFPAY ==
--- OUTSIDE RECORDS SUMMARY | 2024-11-19 08:02 | XMS_ITS | Clinical Summary ---
Author Organization [facility] it Address [address] [place] [address] Care Team Providers Care Director Adult Name Role Phone Unavailable Primary Care Provider [...]
--- OUTSIDE RECORDS SUMMARY | 2024-11-19 08:02 | XMS_ITS | Clinical Summary ---
Author Organization [facility] Address [address] [place] [address] Phone Care Team Providers Care Outside Sales Consultant Name Role Phone Vladimir Keys MD Primary Care Provider [phone] Allergies No known active allergies Medications acetaminophen [...] (09/18/2021): Added automatically from request for surgery [id number] Immunizations Immunization Administration Dates Next Due Influenza, Unspecified 04/24/2021,2019,03/14/2017,03/31/2016, 5 Pfizer SARS-COV-2 11/21/2020,10/29/2020 Family History Medical History Relation Comments Diabetes Father Heart disease Father [place] Stroke Mother Relation Status Comments Father Mother [...] EDT Unless otherwise specified, test(s) performed at: [facility] [address] ENVIRONMENTAL MONITORING TECHNICIAN: Chris Gomez M.D. For any questions, please call customer service at FREQUENCY:MONTHLY Resulting Agency Comment Specimen source: Blood Brian Saldaña MD LAB BLOOD BANK TEST ORDERABLES F inal Result APS EBONIE PVNMA from Last 3 Months or Most Recently Relevant to Health Maintenance Insurance Medicare [facility] Medicare [facility] Care Teams Outside Sales Consultant Relationship Specialty Start Date End Date Vladimir Keys MD [address] [place] [address], [address] [place], [place] PCP - General 07/24/20
--- OUTSIDE RECORDS SUMMARY | 2024-11-19 08:02 | XMS_ITS | Clinical Summary ---
Author Organization [employer] Address [address] [place] [address] [place] [address] Care Team Providers Care Linux Devops Engineer Name Role Phone Unavailable Primary Care Provider Unavailabl e Allergies Active Allergy Reactions Criticality Noted Date Comments Ceftriaxone 06/16/2024 Medications nystatin (Mycostatin) 894287 UNIT/GM powder 4 Active traMADol (Ultram) 50 [...] Description 10/20/2024 2:00 PM EDT Office Visit [facility] [address] [place] [address] Jesus Dejesus DMD 10/06/2024 3:15 PM EDT Office Visit [facility] [address] [place] [address] Melissa Larson from Last 3 Months Social [...] Care Team (Late st Contact Info) Description 12/22/2024 1:00 PM EDT Office Visit [facility] [address] [place] [address] Jesus Dejesus, DMD [address] [place] [address] Health Maintenance Due Date Last Done Comments [...] ADULT Routine 10/06/2024 3 :15 PM EDT from Last 3 Months
[2024-11-19 08:27] LABS: INTERNATIONAL NORM RATIO 2.3 (0.9-1.1)
== END 2024-11-19 08:00 | disposition home or self-care (01) ==
LOC: HO.HSH2E 07:59
PROVIDERS: Visit Provider Internal Medicine Endocrinology, Diabetes & Metabolism
DX: I48.91 Unspecified atrial fibrillation (principal); Z79.01 Long term (current) use of anticoagulants
CPT/HCPCS: 36415; 85610

== ENCOUNTER 2024-12-01 15:23 | Outpatient (REF) | payer MEDICARE, SELFPAY ==
--- OUTSIDE RECORDS SUMMARY | 2024-12-01 15:26 | XMS_ITS | Clinical Summary ---
Author Organization [employer] Address [address] [place] [address] [place] [address] Care Team Providers Care Offshore Diver Name Role Phone Unavailable Primary Care Provider Unavailabl e Allergies Active Allergy Reactions Criticality Noted Date Comments Ceftriaxone 06/16/2024 Medications nystatin (Mycostatin) 621843 UNIT/GM powder 4 Active traMADol (Ultram) 50 [...] Description 10/20/2024 2:00 PM EDT Office Visit [facility] [address] [place] [address] Jesus Dejesus DMD 10/06/2024 3:15 PM EDT Office Visit [facility] [address] [place] [address] Melissa Larson from Last 3 Months Social [...] Description 12/22/2024 1:00 PM EDT Office Visit [facility] [address] [place] [address] Jesus Dejesus, TIMO [address] [place] [address] 01/05/2025 8:45 AM EDT Office Visit [facility] [address] [place] [address] Melissa Larson [address] [place] [address] Health Maintenance Due Date Last Done Comments [...] - 1-dose 75+ series) 2018 COVID-19 Vaccine (1 - 2023-2 5 season) [...]
--- OUTSIDE RECORDS SUMMARY | 2024-12-01 15:26 | XMS_ITS | Clinical Summary ---
Author Organization [facility] it Address [address] [place] [address] Care Team Providers Care Stitchdown Thread Laster Name Role Phone Unavailable Primary Care Provider [...]
--- OUTSIDE RECORDS SUMMARY | 2024-12-01 15:26 | XMS_ITS | Clinical Summary ---
Author Organization [facility] Address [address] [place] [address] Phone Care Team Providers Care Physiotherapy Assistant Name Role Phone Vladimir Keys MD Primary Care Provider [phone] Allergies No known active allergies Medications acetaminophen [...] (09/18/2021): Added automatically from request for surgery [id number] Immunizations Immunization Administration Dates Next Due Influenza, Unspecified 04/24/2021,2019,03/14/2017,03/31/2016, 5 Pfizer SARS-COV-2 11/21/2020,10/29/2020 Family History Medical History Relation Comments Diabetes Father Heart disease Father [place] Stroke Mother Relation Status Comments Father Mother [...] EDT Unless otherwise specified, test(s) performed at: [facility] [address] SOLAR MANAGER: Chris Gomez M.D. For any questions, please call customer service at FREQUENCY:MONTHLY Resulting Agency Comment Specimen source: Blood Brian Saldaña MD LAB BLOOD BANK TEST ORDERABLES F inal Result APS EBONIE PVNMA from Last 3 Months or Most Recently Relevant to Health Maintenance Insurance Medicare [facility] Medicare [facility] Care Teams Physiotherapy Assistant Relationship Specialty Start Date End Date Vladimir Keys MD [address] [place] [address], [address] [place], [place] PCP - General 07/24/20
[2024-12-01 15:30] LABS: Appearance Urine Turbid; Color Urine Yellow; Glucose Urine UA Negative (Negative); Leukocyte Esterase Urine Large (3+) (Negative); Nitrite Urine Positive (Negative); PH 7.5 (5.0-9.0); Specific Gravity - Urine <= 1.005 (1.005-1.025); UMIC TRIGGER UA YES; Urine Blood Moderate (2+) (Negative); Urine Ketones Negative (Negative); Urine Protein 30 (1+) mg/dL (Neg-Trace)
[2024-12-01 15:45] LABS: Bacteria Urine 3+ (None Seen); Squamous Epithelial Cell Urine 0-2 /HPF (0-2); WBC Clumps Urine Present; WBC Urine >50 /HPF (0-5)
== END 2024-12-01 15:24 | disposition home or self-care (01) ==
LOC: HO.HSH2E 15:23
PROVIDERS: Visit Provider Internal Medicine Endocrinology, Diabetes & Metabolism
DX: N39.0 Urinary tract infection, site not specified (principal)
CPT/HCPCS: 81001; 87086; 87088; 87186

== ENCOUNTER 2024-12-02 07:44 | Outpatient (REF) | payer MEDICARE, SELFPAY ==
[2024-12-02 07:48] LABS: MANUAL DIFF FLAG NO
--- OUTSIDE RECORDS SUMMARY | 2024-12-02 07:48 | XMS_ITS | Clinical Summary ---
Author Organization [facility] Address [address] [place] [address] Phone Care Team Providers Care Screen Printing Loader Unloader Name Role Phone Vladimir Keys MD Primary Care Provider [phone] Allergies No known active allergies Medications acetaminophen [...] (09/18/2021): Added automatically from request for surgery [id number] Immunizations Immunization Administration Dates Next Due Influenza, Unspecified 04/24/2021,2019,03/14/2017,03/31/2016, 5 Pfizer SARS-COV-2 11/21/2020,10/29/2020 Family History Medical History Relation Comments Diabetes Father Heart disease Father [place] Stroke Mother Relation Status Comments Father Mother [...] EDT Unless otherwise specified, test(s) performed at: [facility] [address] VETERINARY TECHNOLOGIST: Chris Gomez M.D. For any questions, please call customer service at FREQUENCY:MONTHLY Resulting Agency Comment Specimen source: Blood Brian Saldaña MD LAB BLOOD BANK TEST ORDERABLES F inal Result APS EBONIE PVNMA from Last 3 Months or Most Recently Relevant to Health Maintenance Insurance Medicare [facility] Medicare [facility] Care Teams Screen Printing Loader Unloader Relationship Specialty Start Date End Date Vladimir Keys MD [address] [place] [address], [address] [place], [place] PCP - General 07/24/20
--- OUTSIDE RECORDS SUMMARY | 2024-12-02 07:48 | XMS_ITS | Clinical Summary ---
Author Organization [facility] it Address [address] [place] [address] Care Team Providers Care Dredge Engineer Name Role Phone Unavailable Primary Care [...]
--- OUTSIDE RECORDS SUMMARY | 2024-12-02 07:48 | XMS_ITS | Clinical Summary ---
Author Organization [email or web address] Address [address] [place] [address] [place] [address] Care Team Providers Care Consumer Services Advisor Name Role Phone Unavailable Primary Care Provider Unavailabl e Allergies Active Allergy Reactions Criticality Noted Date Comments Ceftriaxone 06/16/2024 Medications nystatin (Mycostatin) 757759 UNIT/GM powder 4 Active traMADol (Ultram) 50 [...] Description 10/20/2024 2:00 PM EDT Office Visit [facility] [address] [place] [address] Jesus Dejseus DMD 10/06/2024 3:15 PM EDT Office Visit [facility] [address] [place] [address] Melissa Larson from Last 3 Months Social [...] Description 12/22/2024 1:00 PM EDT Office Visit [facility] [address] [place] [address] Jesus Dejesus, TIMO [address] [place] [address] 01/05/2025 8:45 AM EDT Office Visit [facility] [address] [place] [address] Melissa Larson [address] [place] [address] Health Maintenance Due Date Last Done Comments [...]
[2024-12-02 08:00] LABS: Basophils Percent Auto 0.4 % (0-2); Eosinophils Absolute Auto 0.2 X10*3/uL (0.0-0.4); Eosinophils Percent Auto 4.6 % (0-4); Hematocrit 28.9 % (42.0-52.0); Hemoglobin 9.2 g/dl (14.0-18.0); Imm Gran Abs Auto 0.01 X10*3/uL (0.00-0.03); Imm Gran Pct Auto 0.2 % (0.0-0.4); Lymphocytes Absolute Auto 0.6 X10*3/uL (1.2-4.9); Lymphocytes Percent Auto 11.5 % (20-40); Mean Corpuscular HGB Conc 31.8 g/dl (31.0-36.0); Mean Corpuscular Volume 94.1 fL (80.0-98.0); Mean Platelet Volume 11.4 fL (9.4-12.4); Monocytes Absolute Auto 0.6 X10*3/uL (0.1-1.2); Monocytes Percent Auto 13.1 % (2-11); Neutrophils Absolute Auto 3.4 x10*3/uL (2.0-8.3); Neutrophils Percent Auto 70.2 % (45-73); Platelet Count 172 X10*3/uL (160-400); Red Blood Count 3.07 X10*6/uL (4.60-5.80); Red Cell Distribution Width 15.8 % (11.0-16.0); White Blood Count 4.8 X10*3/uL (4.8-10.8)
== END 2024-12-02 07:45 | disposition home or self-care (01) ==
LOC: HO.HSH2E 07:44
PROVIDERS: Visit Provider Internal Medicine Endocrinology, Diabetes & Metabolism
DX: D64.9 Anemia, unspecified (principal); N18.9 Chronic kidney disease, unspecified
CPT/HCPCS: 36415; 85025

== ENCOUNTER 2024-12-03 06:33 | Outpatient (REF) | payer MEDICARE, SELFPAY ==
--- OUTSIDE RECORDS SUMMARY | 2024-12-03 06:37 | XMS_ITS | Clinical Summary ---
Author Organization [employer] Address [address] [place] [address] [place] [address] Care Team Providers Care Geography Department Chair Name Role Phone Unavailable Primary Care Provider Unavailabl e Allergies Active Allergy Reactions Criticality Noted Date Comments Ceftriaxone 06/16/2024 Medications nystatin (Mycostatin) 715471 UNIT/GM powder 4 Active traMADol (Ultram) 50 [...] 2:00 PM EDT Office Visit [facility] [address] [place] [address] Jesus Dejesus DMD 10/06/2024 3:15 PM EDT Office Visit [facility] [address] [place] [address] Melissa Larson from Last 3 Months Social [...] Description 12/22/2024 1:00 PM EDT Office Visit [facility] [address] [place] [address] Jesus Dejesus, TIMO [address] [place] [address] 01/05/2025 8:45 AM EDT Office Visit [facility] [address] [place] [address] Melissa Larson [address] [place] [address] Health Maintenance Due Date Last Done Comments [...]
[2024-12-03 06:49] LABS: INTERNATIONAL NORM RATIO 2.4 (0.9-1.1); Prothrombin Time 27.4 SEC (10.9-12.4)
[2024-12-03 06:51] LABS: Estimated Average Glucose 131 mg/dL; Hemoglobin A1c % 6.2 % (<6.0)
== END 2024-12-03 06:34 | disposition home or self-care (01) ==
LOC: HO.HSH2E 06:33
PROVIDERS: Visit Provider Internal Medicine Endocrinology, Diabetes & Metabolism
DX: R73.09 Other abnormal glucose (principal); Z95.2 Presence of prosthetic heart valve
CPT/HCPCS: 36415; 83036; 85610

== ENCOUNTER 2024-12-07 06:21 | Outpatient (REF) | payer MEDICARE, SELFPAY ==
[2024-12-07 07:03] LABS: INTERNATIONAL NORM RATIO 3.1 (0.9-1.1); Prothrombin Time 35.6 SEC (10.9-12.4)
== END 2024-12-07 06:22 | disposition home or self-care (01) ==
LOC: HO.HSH2E 06:21
PROVIDERS: Visit Provider Internal Medicine Endocrinology, Diabetes & Metabolism
DX: Z95.2 Presence of prosthetic heart valve (principal)
CPT/HCPCS: 36415; 85610

== ENCOUNTER 2024-12-14 06:38 | Outpatient (REF) | payer MEDICARE, SELFPAY ==
[2024-12-14 07:25] LABS: Anion Gap 12 (12-20); Blood Urea Nitrogen 57 mg/dL (9-16); Calcium 10.1 mg/dL (8.4-10.2); Carbon Dioxide 25 mmol/L (22-29); Chloride 103 mmol/L (96-108); Estimated Glomerular Filt Rate 27; Glucose Random 87 mg/dL (60-115); Potassium 4.5 mmol/L (3.3-5.1); Sodium 135 mmol/L (135-145)
== END 2024-12-14 06:39 | disposition home or self-care (01) ==
LOC: HO.HSH2E 06:38
PROVIDERS: Visit Provider Internal Medicine Endocrinology, Diabetes & Metabolism
DX: R60.0 Localized edema (principal)
CPT/HCPCS: 36415; 80048

== ENCOUNTER 2024-12-21 06:30 | Outpatient (REF) | payer MEDICARE, SELFPAY ==
--- OUTSIDE RECORDS SUMMARY | 2024-12-21 06:33 | XMS_ITS | Clinical Summary ---
Author Organization [employer] Address [address] [place] [address] [place] [address] Care Team Providers Care Fence Post Cutter Name Role Phone Unavailable Primary Care Provider Unavailabl e Allergies Active Allergy Reactions Criticality Noted Date Comments Ceftriaxone 06/16/2024 Medications nystatin (Mycostatin) 115309 UNIT/GM powder 4 Active traMADol (Ultram) 50 [...] Description 10/20/2024 2:00 PM EDT Office Visit [facility] [address] [place] [address] Jesus Dejesus DMD 10/06/2024 3:15 PM EDT Office Visit [facility] [address] [place] [address] Melissa Larson from Last 3 Months Social [...] Description 12/22/2024 1:00 PM EDT Office Visit [facility] [address] [place] [address] Jesus Dejesus, TIMO [address] [place] [address] 01/05/2025 8:45 AM EDT Office Visit [facility] [address] [place] [address] Melissa Larson [address] [place] [address] Health Maintenance Due Date Last Done Comments [...] season) 2024 Influenza Vaccine (Season Ended) 2025 Dental Prophylaxis 04/09/2025 10/06/2024, 07/05/2024 Tobacco Screening [...]
[2024-12-21 07:04] LABS: Prothrombin Time 23.3 SEC (10.9-12.4)
== END 2024-12-21 06:31 | disposition home or self-care (01) ==
LOC: HO.HSH2E 06:30
PROVIDERS: Visit Provider Internal Medicine Endocrinology, Diabetes & Metabolism
DX: I48.91 Unspecified atrial fibrillation (principal)
CPT/HCPCS: 36415; 85610

== ENCOUNTER 2024-12-27 06:37 | Outpatient (REF) | payer MEDICARE, SELFPAY ==
--- OUTSIDE RECORDS SUMMARY | 2024-12-27 06:40 | XMS_ITS | Clinical Summary ---
Author Organization [employer] Address [address] [place] [address] [place] [address] Care Team Providers Care Purchasing Clerk Name Role Phone Unavailable Primary Care Provider Unavailabl e Allergies Active Allergy Reactions Criticality Noted Date Comments Ceftriaxone 06/16/2024 Medications nystatin (Mycostatin) 262898 UNIT/GM powder 4 Active traMADol (Ultram) 50 [...] Description 10/20/2024 2:00 PM EDT Office Visit [facility] [address] [place] [address] Jesus Dejesus DMD 10/06/2024 3:15 PM EDT Office Visit [facility] [address] [place] [address] Melissa Larson from Last 3 Months Social [...] Care Team (Late st Contact Info) Description 2025 11:15 AM EDT Office Visit [facility] [address] [place] [address] Karen Karla Health Maintenance Due Date Last Done Comments [...]
[2024-12-27 06:42] LABS: MANUAL DIFF FLAG NO
[2024-12-27 07:07] LABS: Basophils Percent Auto 0.8 % (0-2); Eosinophils Absolute Auto 0.3 X10*3/uL (0.0-0.4); Eosinophils Percent Auto 7.3 % (0-4); Hematocrit 29.5 % (42.0-52.0); Hemoglobin 9.4 g/dl (14.0-18.0); Imm Gran Abs Auto 0.02 X10*3/uL (0.00-0.03); Imm Gran Pct Auto 0.5 % (0.0-0.4); Lymphocytes Absolute Auto 0.6 X10*3/uL (1.2-4.9); Mean Corpuscular HGB Conc 31.9 g/dl (31.0-36.0); Mean Corpuscular Hemoglobin 30.8 pg (27.0-33.0); Mean Corpuscular Volume 96.7 fL (80.0-98.0); Mean Platelet Volume 11.4 fL (9.4-12.4); Monocytes Absolute Auto 0.5 X10*3/uL (0.1-1.2); Monocytes Percent Auto 13.3 % (2-11); Neutrophils Absolute Auto 2.6 x10*3/uL (2.0-8.3); Neutrophils Percent Auto 64.1 % (45-73); Platelet Count 187 X10*3/uL (160-400); Red Blood Count 3.05 X10*6/uL (4.60-5.80)
[2024-12-27 07:14] LABS: Anion Gap 14 (12-20); Blood Urea Nitrogen 61 mg/dL (9-16); Calcium 10.1 mg/dL (8.4-10.2); Carbon Dioxide 22 mmol/L (22-29); Chloride 105 mmol/L (96-108); Estimated Glomerular Filt Rate 31; Glucose Random 183 mg/dL (60-115); Potassium 3.8 mmol/L (3.3-5.1); Sodium 137 mmol/L (135-145)
[2024-12-27 07:30] LABS: Vitamin D 25-OH Total 24.1 ng/mL (>30)
== END 2024-12-27 06:38 | disposition home or self-care (01) ==
LOC: HO.HSH2E 06:37
PROVIDERS: Visit Provider Internal Medicine Interventional Cardiology
DX: R94.4 Abnormal results of kidney function studies (principal); N18.9 Chronic kidney disease, unspecified; E55.9 Vitamin D deficiency, unspecified
CPT/HCPCS: 36415; 80048; 82306; 85025

== ENCOUNTER 2024-12-28 06:14 | Outpatient (REF) | payer MEDICARE, SELFPAY ==
[2024-12-28 06:34] LABS: INTERNATIONAL NORM RATIO 2.5 (0.9-1.1); Prothrombin Time 28.4 SEC (10.9-12.4)
[2024-12-28 06:39] LABS: Estimated Average Glucose 134 mg/dL; Hemoglobin A1c % 6.3 % (<6.0)
[2024-12-28 06:47] LABS: Glucose Fasting 87 mg/dL (60-99)
[2024-12-28 06:56] LABS: Basophils Percent Auto 0.8 % (0-2); Eosinophils Absolute Auto 0.3 X10*3/uL (0.0-0.4); Eosinophils Percent Auto 5.2 % (0-4); Hematocrit 29.4 % (42.0-52.0); Hemoglobin 9.6 g/dl (14.0-18.0); Imm Gran Abs Auto 0.04 X10*3/uL (0.00-0.03); Imm Gran Pct Auto 0.8 % (0.0-0.4); Lymphocytes Absolute Auto 0.8 X10*3/uL (1.2-4.9); Lymphocytes Percent Auto 16.2 % (20-40); MANUAL DIFF FLAG SCAN; Mean Corpuscular HGB Conc 32.7 g/dl (31.0-36.0); Mean Corpuscular Hemoglobin 30.6 pg (27.0-33.0); Mean Corpuscular Volume 93.6 fL (80.0-98.0); Monocytes Absolute Auto 0.6 X10*3/uL (0.1-1.2); Monocytes Percent Auto 12.2 % (2-11); Neutrophils Absolute Auto 3.1 x10*3/uL (2.0-8.3); Neutrophils Percent Auto 64.8 % (45-73); PLT CLUMP 1; Red Blood Count 3.14 X10*6/uL (4.60-5.80); Red Cell Distribution Width 16.2 % (11.0-16.0); SCAN SMEAR FLAG 1
[2024-12-28 07:51] LABS: SLIDE REVIEW VERIFIED; White Blood Count 4.8 X10*3/uL (4.8-10.8)
== END 2024-12-28 06:15 | disposition home or self-care (01) ==
LOC: HO.HSH2E 06:14
PROVIDERS: Visit Provider Internal Medicine Endocrinology, Diabetes & Metabolism
DX: E11.9 Type 2 diabetes mellitus without complications (principal); Z79.01 Long term (current) use of anticoagulants; Z95.2 Presence of prosthetic heart valve
CPT/HCPCS: 36415; 82947; 83036; 85025; 85610

== ENCOUNTER 2025-01-07 09:52 | Outpatient (AMB) | payer MEDICARE, SELFPAY ==
[2025-01-07 09:54] VITALS: BP 108/50
--- NOTE | 2025-01-07 09:54 | HO.NEPHOV_ITS ---
Vital Signs 01/07/25 09:54 Height 5 ft 11 in BP 108/50 L Blood Pressure Location Lt brachial Position Sitting Intake Visit Reasons: 2 mo fu w/ labs- Conf Revenue Specialist Required: No Accompanied by: Daughter Allergies ceftriaxone Allergy (Verified 01/07/25 09:56) Unknown Do you need a note to return to daycare/school/sports/work: No HPI Comments Details: I had the pleasure of seeing Gume who was accompanied by his family for his advanced CKD as well as anemia of chronic kidney disease on a backdrop of Hypertension and DM. He has H/O KHADRA needing renal replacement in the past. He has no uremic symptoms or hypoglycemias. He has H/O BPH and is on finasteride. His appetite is good. He denies nausea, vomiting, diarrhea, chest pain, hemoptysis, hemetemesis, melena, recurrent sinusitis or renal calculi. He does not have any orthostatic symptoms. He does not take NSAID's regularly. He does not have any new bone or back pain. He recently received 20 K units of Procrit [facility] with improvement in Hb. His appetite has improved. [facility] Medical History Hx of decubitus ulcer Former smoker Peripheral neuropathy Compartment syndrome of right lower extremity Osteoarthritis Pancreatic cyst Gout ASHD (arteriosclerotic heart disease) Aortic stenosis Chronic kidney disease Chronic combined systolic and diastolic CHF (congestive heart failure) Nonrheumatic aortic (valve) stenosis Anemia Endocarditis Afib Obesity Hyperlipidemia Murmur HTN (hypertension) Neuropathy Diabetes Surgical History Hx of ankle fusion History of total bilateral knee replacement Hx of aortic valve replacement Social History Patient Tobacco Use Status: Former Tobacco user Review of Systems Const All systems reviewed & are unremarkable except as noted in HPI and below Physical Exam Const General: comfortable and no acute distress Orientation/consciousness: patient oriented x3 HEENT Head: Yes normocephalic Mouth: Normal oral and palatal mucosa present Eyes EOM: EOMs intact bilaterally Neck Neck: Yes supple Resp Auscultation: clear to auscultation bilaterally Cardio Jugular venous distension: no JVD Rate: regular rate GI Palpation (GI): Soft to palpation Auscultation: normal bowel sounds General: Yes no CVA tenderness Back/Spine/Pelvis Back: no CVA tenderness Skin General skin exam: no rashes or lesions noted Neuro General: patient oriented x3 and moves all extremities Extrem General: Yes no pedal edema Results Reviewed Nephrology Results: Hgb, (14.0-18.0) 9.6 g/dl L 12/28/24 WBC, (4.8-10.8) 4.8 X10*3/uL 12/28/24 Plt Count TNP 12/28/24 Sodium, (135-145) 137 mmol/L 12/27/24 Potassium, (3.3-5.1) 3.8 mmol/L 12/27/24 Chloride, (96-108) 105 mmol/L 12/27/24 Carbon Dioxide, (22-29) 22 mmol/L 12/27/24 BUN, (9-16) 61 mg/dL H 12/27/24 Creatinine, (0.5-1.4) 2.05 mg/dL H 12/27/24 Calcium, (8.4-10.2) 10.1 mg/dL 12/27/24 Urine Protein, (Neg-Trace) 30 (1+) mg/dL H 12/01/24 Assessment & Plan Assessment & Plan (1) HTN (hypertension): Code(s): I10 - Essential (primary) hypertension Category: Medical Qualifiers: Hypertension type: primary hypertension Qualified Code(s): I10 - Essen tial (primary) hypertension (2) CKD (chronic kidney disease) stage 4, GFR 15-29 ml/min: Code(s): N18.4 - Chronic kidney disease, stage 4 (severe) Category: Medical (3) Anemia in chronic kidney disease (CKD): Code(s): N18.9 - Chronic kidney disease, unspecified; D63.1 - Anemia in chronic kidney disease Category: Medical Qualifiers: Chronic kidney disease stage: stage 4 (GFR 15-29) Qualified Code(s): N18.4 - Chronic kidney disease, stage 4 (severe); D63.1 - Anemia in chronic kidney disease (4) Vitamin D deficiency: Code(s): E55.9 - Vitamin D deficiency, unspecified Category: Medical Plan 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 He had KHADRA on CKD needing renal replacement in the past. He is off HD for a long time. His renal functions are currently stable . His UO is good. His BP is well controlled. He does not need a renal diet except for low sodium . He should get CBC checked every 3 weeks and should receive 19589 of Procrit every 3 weeks to keep his Hb close to 11 G/dl. He should also be started on Vitamin D 2000 U daily. He maintains good hydration and does not take NSAID's regularly. He will be a candidate for SGLT2 i , if his creatinine clearance permits. Answered all questions. Follow up given Orders: Orders Complete Blood Count Auto Diff 4 Months D63.1 - Anemia in chronic kidney disease, E55.9 - Vitamin D deficiency, unspecified, I10 - Essential (primary) hypertension, N18.4 - Chronic kidney disease, stage 4 (severe) Electrolytes 4 Months D63.1 - Anemia in chronic kidney disease, E55.9 - Vitamin D deficiency, unspecified, I10 - Essential (primary) hypertension, N18.4 - Ch ronic kidney disease, stage 4 (severe) Blood Urea Nitrogen 4 Months D63.1 - Anemia in chronic kidney disease, E55.9 - Vitamin D deficiency, unspecified, I10 - Essential (primary) hypertension, N18.4 - Chronic kidney disease, stage 4 (severe) Ferritin 4 Months D63.1 - Anemia in chronic kidney disease, E55.9 - Vitamin D deficiency, unspecified, I10 - Essential (primary) hypertension, N18.4 - Chronic kidney disease, stage 4 (severe) IRON PROFILE 4 Months D63.1 - Anemia in chronic kidney disease, E55.9 - Vitamin D deficiency, unspecified, I10 - Essential (primary) hypertension, N18.4 - Chronic kidney disease, stage 4 (severe) Calcium 4 Months D63.1 - Anemia in chronic kidney disease, E55.9 - Vitamin D deficiency, unspecified, I10 - Essential (primary) hypertension, N18.4 - Chronic kidney disease, stage 4 (severe) Creatinine 4 Months D63.1 - Anemia in chronic kidney disease, E55.9 - Vitamin D deficiency, unspecified, I10 - Essential (primary) hypertension, N18.4 - Chronic kidney disease, stage 4 (severe) Vitamin D 25-OH Total 4 Months D63.1 - Anemia in chronic kidney disease, E55.9 - Vitamin D deficiency, unspecified, I10 - Essential (primary) hypertension, N18.4 - Chronic kidney disease, stage 4 (severe) Parathyroid Hormone Intact 4 Months D63.1 - Anemia in chronic kidney disease, E55.9 - Vitamin D deficiency, unspecified, I10 - Essential (primary) hypertension, N18.4 - Chronic kidney disease, stage 4 (severe) Coding Level of Care Code Est Pt Level 4 (05796) Diagnoses Primary hypertension I10 Hypertension type: primary hypertension CKD (chronic kidney disease) stage 4, GFR 15-29 ml/min N18.4 Anemia in stage 4 chronic kidney disease N18.4; D63.1 Chronic kidney disease stage: stage 4 (GFR 15-29) Vitamin D deficiency E55.9
--- OUTSIDE RECORDS SUMMARY | 2025-01-07 10:24 | XMS_ITS | Clinical Summary ---
Author Organization [employer] Address [address] [facility] 7 [place] [address] Care Team Providers Care Construction Sales Manager Name Role Phone Unavailable Primary Care Provider Unavailabl e Allergies Active Allergy Reactions Criticality Noted Date Comments Ceftriaxone 06/16/2024 Medications nystatin (Mycostatin) 329311 UNIT/GM powder 4 Active traMADol (Ultram) 50 [...] Description 10/20/2024 2:00 PM EDT Office Visit [facility] [address] [place] [address] Jesus Dejesus DMD from Last 3 Months [...] Team (Late st Contact Info) Description 2025 1:00 PM EDT Office Visit [facility] [address] [place], [place] [phone] Karla Jones Health Maintenance Due Date Last Done Comments [...] SURF, ANTERIOR Routine 10/20/2024 2:00 PM EDT PROPHYLAXIS - ADULT Routine 10/06/2024 3:15 PM EDT from Last 3 Months or Most Recently Relevant to Health Maintenance
== END 2025-01-07 10:14 | disposition home or self-care (01) ==
LOC: HO.HKA 09:53
PROVIDERS: PCP Internal Medicine Endocrinology, Diabetes & Metabolism; Visit Provider Internal Medicine Nephrology
DX: I12.9 Hypertensive chronic kidney disease with stage 1 through stage 4 chronic kidney disease, or unspecified chronic kidney disease (principal); N18.4 Chronic kidney disease, stage 4 (severe); D63.1 Anemia in chronic kidney disease; E55.9 Vitamin D deficiency, unspecified
CPT/HCPCS: 99214

== ENCOUNTER → 2025-01-07 09:52 | Outpatient (BNVA) | payer MEDICARE, SELFPAY | PROVIDERS: PCP Internal Medicine Endocrinology, Diabetes & Metabolism; Visit Provider Internal Medicine Nephrology | DX: I12.9 Hypertensive chronic kidney disease with stage 1 through stage 4 chronic kidney disease, or unspecified chronic kidney disease (principal); N18.4 Chronic kidney disease, stage 4 (severe); D63.1 Anemia in chronic kidney disease; E55.9 Vitamin D deficiency, unspecified | CPT/HCPCS: 99212 ==

== ENCOUNTER 2025-01-11 06:30 | Outpatient (REF) | payer MEDICARE, SELFPAY ==
[2025-01-11 07:03] LABS: INTERNATIONAL NORM RATIO 3.6 (0.9-1.1); Prothrombin Time 41.2 SEC (10.9-12.4)
== END 2025-01-11 06:31 | disposition home or self-care (01) ==
LOC: HO.HSH2E 06:30
PROVIDERS: Visit Provider Internal Medicine Endocrinology, Diabetes & Metabolism
DX: Z95.2 Presence of prosthetic heart valve (principal)
CPT/HCPCS: 36415; 85610

== ENCOUNTER 2025-01-12 06:40 | Outpatient (REF) | payer MEDICARE, SELFPAY ==
--- OUTSIDE RECORDS SUMMARY | 2025-01-12 06:43 | XMS_ITS | Clinical Summary ---
Author Organization [facility] it Address [address] [place] [address] Care Team Providers Care Fish Hatchery Assistant Name Role Phone Unavailable Primary Care Provider [...]
--- OUTSIDE RECORDS SUMMARY | 2025-01-12 06:43 | XMS_ITS | Clinical Summary ---
Author Organization [employer] Address [address] [facility] 7 [place] [address] Care Team Providers Care Wild Oyster Harvester Name Role Phone Unavailable Primary Care Provider Unavailabl e Allergies Active Allergy Reactions Criticality Noted Date Comments Ceftriaxone 06/16/2024 Medications nystatin (Mycostatin) 632504 UNIT/GM powder 4 Active traMADol (Ultram) 50 [...] Description 10/20/2024 2:00 PM EDT Office Visit [facility] [address] [place] [address] Jesus Dejesus DMD from Last 3 Months [...] Description 2025 1:00 PM EDT Office Visit [facility] [address] [place], [place] [phone] Karla Jones Health Maintenance Due Date Last [...]
--- OUTSIDE RECORDS SUMMARY | 2025-01-12 06:43 | XMS_ITS | Clinical Summary ---
Author Organization [facility] Address [address] [place] [address] Phone Care Team Providers Care Custom Studio Coordinator Name Role Phone Vladimir Keys MD Primary Care Provider [phone] Allergies No known active allergies Medications acetaminophen [...] (09/18/2021): Added automatically from request for surgery [id number] Immunizations Immunization Administration Dates Next Due Influenza, Unspecified 04/24/2021,2019,03/14/2017,03/31/2016, 5 Pfizer SARS-COV-2 11/21/2020,10/29/2020 Family History Medical History Relation Comments Diabetes Father Heart disease Father [place] Stroke Mother Relation Status Comments Father Mother [...] EDT Unless otherwise specified, test(s) performed at: [facility] [address] RACECOURSE BARRIER ATTENDANT: Chris Gomez M.D. For any questions, please call customer service at FREQUENCY:MONTHLY Resulting Agency Comment Specimen source: Blood Brian Saldaña MD LAB BLOOD BANK TEST ORDERABLES F inal Result APS EBONIE PVNMA from Last 3 Months or Most Recently Relevant to Health Maintenance Insurance Medicare [facility] Medicare [facility] Care Teams Custom Studio Coordinator Relationship Specialty Start Date End Date Vladimir Keys MD [address] [place] [address], [address] [place], [place] PCP - General 07/24/20
[2025-01-12 07:09] LABS: MANUAL DIFF FLAG NO
[2025-01-12 07:26] LABS: Hematocrit 27.5 % (42.0-52.0); Hemoglobin 8.9 g/dl (14.0-18.0); Imm Gran Abs Auto 0.02 X10*3/uL (0.00-0.03); Imm Gran Pct Auto 0.4 % (0.0-0.4); Lymphocytes Absolute Auto 0.6 X10*3/uL (1.2-4.9); Mean Corpuscular HGB Conc 32.4 g/dl (31.0-36.0); Mean Corpuscular Hemoglobin 30.9 pg (27.0-33.0); Mean Corpuscular Volume 95.5 fL (80.0-98.0); NRBC Abs Auto 0.000 X10*3/uL (0.0-0.012); NRBC Pct Auto 0.0 /100WBC (0.0-0.2); Platelet Count 175 X10*3/uL (160-400); Red Blood Count 2.88 X10*6/uL (4.60-5.80); White Blood Count 5.0 X10*3/uL (4.8-10.8)
== END 2025-01-12 06:41 | disposition home or self-care (01) ==
LOC: HO.HSH2E 06:40
PROVIDERS: Visit Provider Internal Medicine Endocrinology, Diabetes & Metabolism
DX: N18.9 Chronic kidney disease, unspecified (principal)
CPT/HCPCS: 36415; 85025

== ENCOUNTER 2025-01-13 06:17 | Outpatient (REF) | payer MEDICARE, SELFPAY ==
--- OUTSIDE RECORDS SUMMARY | 2025-01-13 06:20 | XMS_ITS | Clinical Summary ---
Author Organization [facility] Address [address] [place] [address] Phone Care Team Providers Care Brick Veneer Maker Name Role Phone Vladimir Keys MD Primary Care Provider [phone] Allergies No known active allergies Medications acetaminophen [...] (09/18/2021): Added automatically from request for surgery [id number] Immunizations Immunization Administration Dates Next Due Influenza, Unspecified 04/24/2021,2019,03/14/2017,03/31/2016, 5 Pfizer SARS-COV-2 11/21/2020,10/29/2020 Family History Medical History Relation Comments Diabetes Father Heart disease Father [place] Stroke Mother Relation Status Comments Father Mother [...] EDT Unless otherwise specified, test(s) performed at: [facility] [address] EMERGENCY DEPARTMENT NURSE: Chris Gomez M.D. For any questions, please call customer service at FREQUENCY:MONTHLY Resulting Agency Comment Specimen source: Blood Brian Saldaña MD LAB BLOOD BANK TEST ORDERABLES F inal Result APS EBONIE PVNMA from Last 3 Months or Most Recently Relevant to Health Maintenance Insurance Medicare [facility] Medicare [facility] Care Teams Brick Veneer Maker Relationship Specialty Start Date End Date Vladimir Keys MD [address] [place] [address], [address] [place], [place] PCP - General 07/24/20
--- OUTSIDE RECORDS SUMMARY | 2025-01-13 06:20 | XMS_ITS | Clinical Summary ---
Author Organization [facility] it Address [address] [place] [address] Care Team Providers Care Gluing Machine Operator Automatic Name Role Phone Unavailable Primary Care Provider [...]
[2025-01-13 07:03] LABS: INTERNATIONAL NORM RATIO 2.7 (0.9-1.1); Prothrombin Time 30.6 SEC (10.9-12.4)
== END 2025-01-13 06:18 | disposition home or self-care (01) ==
LOC: HO.HSH2E 06:17
PROVIDERS: Nurse Practitioner; Visit Provider Internal Medicine Endocrinology, Diabetes & Metabolism
DX: Z95.2 Presence of prosthetic heart valve (principal)
CPT/HCPCS: 36415; 85610

== ENCOUNTER 2025-01-17 06:58 | Outpatient (REF) | payer MEDICARE, SELFPAY ==
--- OUTSIDE RECORDS SUMMARY | 2025-01-17 07:01 | XMS_ITS | Clinical Summary ---
Author Organization [facility] it Address [address] [place] [address] Care Team Providers Care Chlorine Cells Operator Name Role Phone Unavailable Primary Care [...] 2023-2 5 season) 2024 Influenza Vaccine (#1) 2025 HIB Vaccines Aged Out No longer [...]
--- OUTSIDE RECORDS SUMMARY | 2025-01-17 07:01 | XMS_ITS | Clinical Summary ---
Author Organization [facility] Address [address] [place] [address] Phone Care Team Providers Care Finance Admin Name Role Phone Vladimir Keys MD Primary Care Provider [phone] Allergies No known active allergies Medications acetaminophen [...] (09/18/2021): Added automatically from request for surgery [id number] Immunizations Immunization Administration Dates Next Due Influenza, [...] Diabetes: Visual Foot Exam 09/20/2024 Influenza Vaccine (#1) 2025 , 03/05/2020, 03/14/2017, Additional history exists Hepatitis [...] EDT Unless otherwise specified, test(s) performed at: [facility] [address] DOCUMENT MANAGEMENT ANALYST: Chris Gomez M.D. For any questions, please call customer service at FREQUENCY:MONTHLY Resulting Agency Comment Specimen source: Blood Brian Saldaña MD LAB BLOOD BANK TEST ORDERABLES F inal Result APS EBONIE PVNMA from Last 3 Months or Most Recently Relevant to Health Maintenance Insurance Medicare [facility] Medicare [facility] Care Teams Finance Admin Relationship Specialty Start Date End Date Vladimir Keys MD [address] [place] [address], [address] [place], [place] PCP - General 07/24/20
[2025-01-17 08:05] LABS: INTERNATIONAL NORM RATIO 2.2 (0.9-1.1); Prothrombin Time 24.7 SEC (10.9-12.4)
== END 2025-01-17 06:59 | disposition home or self-care (01) ==
LOC: HO.HSH2E 06:58
PROVIDERS: Nurse Practitioner; Visit Provider Internal Medicine Endocrinology, Diabetes & Metabolism
DX: Z51.81 Encounter for therapeutic drug level monitoring (principal)
CPT/HCPCS: 36415; 85610

== ENCOUNTER 2025-01-20 06:28 | Outpatient (REF) | payer MEDICARE, SELFPAY ==
[2025-01-20 06:47] LABS: Hematocrit 28.0 % (42.0-52.0); Hemoglobin 9.0 g/dl (14.0-18.0); Mean Corpuscular HGB Conc 32.1 g/dl (31.0-36.0); Mean Corpuscular Hemoglobin 30.7 pg (27.0-33.0); Mean Corpuscular Volume 95.6 fL (80.0-98.0); NRBC Abs Auto 0.000 X10*3/uL (0.0-0.012); NRBC Pct Auto 0.0 /100WBC (0.0-0.2); Platelet Count 166 X10*3/uL (160-400); Red Blood Count 2.93 X10*6/uL (4.60-5.80); White Blood Count 4.6 X10*3/uL (4.8-10.8)
== END 2025-01-20 06:29 | disposition home or self-care (01) ==
LOC: HO.HSH2E 06:28
PROVIDERS: Nurse Practitioner; Visit Provider Internal Medicine Endocrinology, Diabetes & Metabolism
DX: D64.9 Anemia, unspecified (principal)
CPT/HCPCS: 36415; 85027

== ENCOUNTER 2025-01-27 06:27 | Outpatient (REF) | payer MEDICARE, SELFPAY ==
[2025-01-27 07:27] LABS: Uric Acid 6.7 mg/dL (3.4-7.0)
== END 2025-01-27 06:28 | disposition home or self-care (01) ==
LOC: HO.HSH2E 06:27
PROVIDERS: Visit Provider Internal Medicine Endocrinology, Diabetes & Metabolism
DX: M10.9 Gout, unspecified (principal)
CPT/HCPCS: 36415; 84550

== ENCOUNTER 2025-01-31 07:02 | Outpatient (REF) | payer MEDICARE, SELFPAY ==
--- OUTSIDE RECORDS SUMMARY | 2025-01-31 02:03 | XMS_ITS | Continuity of Care Document ---
Author Name [facility] Organization [facility] Care Team Providers Care Coal Weigher Name Role Phone [facility] Unavailable Unavailable Problems Combined list of problems [...] BY MOUTH ORAL ACTIVE DANIKA BOO 2022 [facility] [place] [facility] DOXYCYCLINE HYCLATE 100MG TAB TAKE ONE TABLET BY MOUTH TWICE DAILY ORAL ACTIVE DANIKA BOO 2022 [facility] [place] [facility] GABAPENTIN 100MG CAP TAKE 1 CAPSULE BY MOUTH TWICE DAILY ORAL ACTIVE DANIKA BOO 2022 [facility] METOPROLOL SUCCINATE 50MG TAB,SA TAKE THREE TABLETS BY MOUTH ONCE DAILY ORAL ACTIVE BOODANIKA Candelario 2022 [facility] SIMVASTATIN 40MG TAB TAKE ONE-HALF TABLET BY MOUTH AT BEDTIME ORAL ACTIVE BOODANIKA Candelario 2022 [facility] WARFARIN (NON-VA) TAB TAKE BY MOUTH ORAL ACTIVE DANIKA BOO 2022 [facility] Immunizations Combined list of available immunizations from the Department of Defense and Veterans Affairs facilities. Immunization Series Date Given Administered By Site Reaction Lot Number CVX Code Drug Marine Plumber Status Comments Source COVID-19 (Anonymous You), MRNA, LNP-S, PF, 30 MCG/0.3 ML DOSE 2021 208 complet ed Booster for Series, HISTORICA L INFORMATI ON - FROM OTHER PROVIDER, Lot#: [id number] [facility] [place] [facility] COVID-19 (Anonymous You), MRNA, LNP-S, PF, 30 MCG/0.3 ML DOSE 2 2020 208 complet ed HISTORICA L INFORMATI ON - FROM OTHER REGISTRY, JL Mfr: [employer] [place] CNT [facility] [facility] [facility] COVID-19 (Anonymous You), MRNA, LNP-S, PF, 30 MCG/0.3 ML DOSE 1 2020 208 complet ed HISTORICA L INFORMATI ON - FROM OTHER REGISTRY, JL Mfr: [employer] [facility] Encounters Combined list of: 1) Encounters from Department of Veterans Affairs facilities going backup to the last 18 months, not all [place] inpatient encounters are included; 2) Encounters from the Department of Defense facilities going backup to 280 months. Location Location Details Encounter Type Encounter Number Reason For Visit Attending Provider ADM Date DC Date Status [facility] Outpatient Encounter [id number] 08/06 [place] [facility] [facility] [place] [facility] Outpatient Encounter [id number] 09/23 [facility] [place] Encounter [id number] Niurka ZHOU 09/29 [facility] WHEELCHAIR MNGMENT TRAINING [id number] Diagnos is: ICD-10- CM 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 Social History Type Response Date Comment Sourc e Tobacco smoking status NHIS [place]-TOBACCO FORMER USER 05/21/2023 [facility] of [facility] Plan of Care List of future care activities from Department of Veterans Affairs facilities. Additional future care activities may be listed in the Assessment and Plan section. Date/Time Care Activity Care Activity Detail Facili ty 02/22/2025 AMBULATORY - REHAB MEDICINE AMBULATORY - REHAB MEDICINE [facility]
--- OUTSIDE RECORDS SUMMARY | 2025-01-31 07:05 | XMS_ITS | Clinical Summary ---
Author Organization [facility] it Address [address] [place] [address] Care Team Providers Care License Examiner Name Role Phone Unavailable Primary Care Provider [...] series) 2018 Cholesterol Screening (Lipid Panel) 06/16/2022 Falls Risk Assessment 06/16/2022 Social Influencers of Health Screening 06/16/2022 COVID-19 Vaccine (1 - 2023-2 5 season) 2024 Depression Screening 07/14/2024 Influenza Vaccine (#1) 2025 HIB Vaccines Aged [...]
--- OUTSIDE RECORDS SUMMARY | 2025-01-31 07:05 | XMS_ITS | Encounter Summary ---
Author Organization [facility] Address [address] [place] [address] [place] [address] Phone Care Team Providers Care Cold Strip Roller Name Role Phone Ila Holguin MD Primary Care Provider [phone] Encounter Details Date Type Department Care Team (Late st Contact Info) Description 05/10/2022 Procedure Pass [facility], Ct Scan - [facility] [address] [place] [address] Social History Tobacco Use Types Packs/Day Years Used Date Smoking Tobacco: Never Smokeless Tobacco: Never Sex and Gender Information Value Date Recorded Sex Assigned at Not on file Legal Sex Male 8:32 AM EDT Gender Identity Not on file Sexual Orientation Not on file documented as of this encounter Functional Status * Calculated C-SSRS Risk Score (Lifetime/Recent) Answer Date of Assessment Author No Risk Indicated 05/10/2022 4:06 PM EDT Adilson Castillo, FACUNDO * [place] Suicide Severity Rating Scale (Screener/Recent Self-Report) Question Answer Date of Assessment Author 1. Wish to be (Past 1 Month) No 05/10/2022 4:06 PM EDT Adilson Shah, FACUNDO 2. Non-Specific Active Suicidal Thoughts (Past 1 Month) No 05/10/2022 4:06 PM EDT Adilson Shah, FACUNDO 6. Suicidal Behavior (Lifetime) No 05/10/2022 4:06 PM EDAdilson Chase RN documented as of this encounter Plan of Treatment Not on file documented as of this encounter Visit Diagnoses Not on filedocumented in this encounter Additional Health Concerns Infection Onset Date Last Indicated Resolved Time CoV-Risk 05/19/2022 05/19/2022 05/20/2022 10:1 4 AM EST documented as of this encounter Care Teams Cold Strip Roller Relationship Specialty Start Date End Date Ila Holguin MD [address] [place] [address] [email or web address] PCP - General Internal Medicine 05/10/22 documented as of this encounter Additional Source Comments The information contained in this document represents components of the legal health record. It is not the complete legal health record.[facility]
--- OUTSIDE RECORDS SUMMARY | 2025-01-31 07:05 | XMS_ITS | Clinical Summary ---
Author Organization [employer] Address [address] [facility] 7 [place] [address] Care Team Providers Care Vehicle Maintenance Technician Name Role Phone Unavailable Primary Care Provider Unavailabl e Allergies Active Allergy Reactions Criticality Noted Date Comments Ceftriaxone 06/16/2024 Medications nystatin (Mycostatin) 927984 UNIT/GM powder 4 Active traMADol (Ultram) 50 [...] Encounters Date Type Department Care Team Description 01/19/2025 2:30 PM EDT Office Visit [facility] [address] [place] [address] Jesus Dejesus DMD from Last 3 Months [...] Description 2025 1:00 PM EDT Office Visit [facility] [address] [place] [address] Karla Jones 02/23/2025 1:00 PM EDT Office Visit [facility] [address] [place] [address] Jesus Dejesus, DMD [address] [place], [place] [id number] Health Maintenance Due Date Last Done Comments Depression Screening 1943 Lipid Panel 1943 SDOH Screening 1943 Alcohol/Substance Use Screening 1955 DTaP/Tdap/Td Vaccines (1 - Tdap) 1962 Pneumococcal Vaccine: 50+ Years (1 of 1 - PCV) 1993 Zoster Vaccines (1 of 2) 1993 RSV Patients and Patients Aged 60 years or older (1 - 1-dose 75+ series) 2018 COVID-19 Vaccine ( - 2023-2 5 season) 2024 Influenza Vaccine (#1) 2025 Dental Prophylaxis 04/09/2025 10/06/2024, 07/05/2024 Dental Oral Exam 07/23/2025 01/19/2025 Tobacco Screening 01/19/2026 01/19/2025 Dental X-Ray: Bitewings 01/20/2026 01/19/2025 Dental X-Ray: Full Mouth 05/06/2027 05/05/2024 HIB [...] Procedure Name Priority Date/Time Associated Diagnosis Comments INTRAORAL - PERIAPICAL EACH ADDITIONAL RADIOGRAPHIC IMAGE Routine 01/19/2025 2:30 PM EDT INTRAORAL - PERIAPICAL FIRST RADIOGRAPHIC IMAGE Routine 01/19/2025 2:30 PM EDT BITEWINGS - 4 RADIOGRAPHIC IMAGES Routine 01/19/2025 2:30 PM EDT PERIODIC ORAL EVALUATION - ESTABLISHED PATIENT Routine 01/19/2025 2:30 PM EDT PROPHYLAXIS - ADULT Routine 10/06/2024 3 :15 PM EDT from Last 3 Months or Most Recently Relevant to Health Maintenance
[2025-01-31 07:31] LABS: INTERNATIONAL NORM RATIO 3.3 (0.9-1.1); Prothrombin Time 38.0 SEC (10.9-12.4)
== END 2025-01-31 07:03 | disposition home or self-care (01) ==
LOC: HO.HSH2E 07:02
PROVIDERS: Visit Provider Internal Medicine Endocrinology, Diabetes & Metabolism
DX: Z95.2 Presence of prosthetic heart valve (principal)
CPT/HCPCS: 36415; 85610

== ENCOUNTER 2025-02-07 06:19 | Outpatient (REF) | payer MEDICARE, SELFPAY ==
[2025-02-07 07:06] LABS: INTERNATIONAL NORM RATIO 2.2 (0.9-1.1); Prothrombin Time 25.8 SEC (10.9-12.4)
[2025-02-07 07:07] LABS: Prostate Specific Antigen 11.04 ng/mL (<0.05-4.0)
== END 2025-02-07 06:20 | disposition home or self-care (01) ==
LOC: HO.HSH2E 06:19
PROVIDERS: Visit Provider Internal Medicine Endocrinology, Diabetes & Metabolism
DX: N40.0 Benign prostatic hyperplasia without lower urinary tract symptoms (principal); R97.20 Elevated prostate specific antigen [PSA]
CPT/HCPCS: 36415; 84153; 84403; 85610

== ENCOUNTER 2025-02-11 07:25 | Outpatient (REF) | payer MEDICARE, SELFPAY ==
--- OUTSIDE RECORDS SUMMARY | 2025-01-31 02:03 | XMS_ITS | Continuity of Care Document ---
Author Name [facility] Organization [facility] Care Team Providers Care Cement Despatch Operator Name Role Phone [facility] Unavailable Unavailable Problems Combined list of problems [...] BY MOUTH ORAL ACTIVE DANIKA BOO 2022 [facility] [place] [facility] DOXYCYCLINE HYCLATE 100MG TAB TAKE ONE TABLET BY MOUTH TWICE DAILY ORAL ACTIVE DANIKA BOO 2022 [facility] [place] [facility] GABAPENTIN 100MG CAP TAKE 1 CAPSULE BY MOUTH TWICE DAILY ORAL ACTIVE DANIKA BOO 2022 [facility] METOPROLOL SUCCINATE 50MG TAB,SA TAKE THREE TABLETS BY MOUTH ONCE DAILY ORAL ACTIVE BOODANIKA Candelario 2022 [facility] SIMVASTATIN 40MG TAB TAKE ONE-HALF TABLET BY MOUTH AT BEDTIME ORAL ACTIVE BOODANIKA Candelario 2022 [facility] WARFARIN (NON-VA) TAB TAKE BY MOUTH ORAL ACTIVE DANIKA BOO 2022 [facility] Immunizations Combined list of available immunizations from the Department of Defense and Veterans Affairs facilities. Immunization Series Date Given Administered By Site Reaction Lot Number CVX Code Drug Energy Manager Status Comments Source COVID-19 (Energy), MRNA, LNP-S, PF, 30 MCG/0.3 ML DOSE 2021 208 complet ed Booster for Series, HISTORICA L INFORMATI ON - FROM OTHER PROVIDER, Lot#: [id number] [facility] [place] [facility] COVID-19 (Energy), MRNA, LNP-S, PF, 30 MCG/0.3 ML DOSE 2 2020 208 complet ed HISTORICA L INFORMATI ON - FROM OTHER REGISTRY, JL Mfr: [employer] [place] CNT [facility] [facility] [facility] COVID-19 (Energy), MRNA, LNP-S, PF, 30 MCG/0.3 ML DOSE 1 2020 208 complet ed HISTORICA L INFORMATI ON - FROM OTHER REGISTRY, JL Mfr: [employer], INC [facility] Encounters Combined list of: 1) Encounters from Department of Veterans Affairs facilities going backup to the last 18 months, not all [place] inpatient encounters are included; 2) Encounters from the Department of Defense facilities going backup to 280 months. Location Location Details Encounter Type Encounter Number Reason For Visit Attending Provider ADM Date DC Date Status [facility] [place] Outpatient Encounter [id number] 08/06 [place] [facility] [place] [facility] [place] [facility] Outpatient Encounter [id number] 09/23 [facility] En[facility] [id number] Niurka ZHOU 09/29 [facility] WHEELCHAIR MNGMENT TRAINING [id number] Diagnos is: ICD-10- CM Z74.09 Other reduced mobilit y TEDDY DEAN ICA L 01/07 [facility] En[facility] [id number] Stephane BOO 02/01 [facility] En[facility] [id number] 02/17 [facility] WHEELCHAIR MNGMENT TRAINING [id number] 1. Diagnos is: ICD-10- CM Z74.09 Other reduced mobilit y TEDDY DEAN ICA L 04/19 [facility] WHEELCHAIR MNGMENT TRAINING [id number] Diagnos is: ICD-10- CM Z74.09 Other reduced mobilit y TEDDY DEAN ICA L 05/17 [facility] WHEELCHAIR MNGMENT TRAINING [id number] Diagnos is: ICD-10- CM Z74.09 Other reduced mobilit y TEDDY DEAN ICA L 10/19 [facility] En[facility] [id number] 01/26 [facility] Social History Combined list of available smoking, tobacco, and other social history from Department of Defense and Veterans Affairs facilities. Social History Type Response Date Comment Sourc e Tobacco smoking status [place]IS [place]-TOBACCO FORMER USER 05/21/2023 [facility] of [facility] OR [facility] Plan of Care List of future care activities from Department of Veterans Affairs facilities. Additional future care activities may be listed in the Assessment and Plan section. Date/Time Care Activity Care Activity Detail Facili ty 02/22/2025 AMBULATORY - REHAB MEDICINE AMBULATORY - REHAB MEDICINE [facility]
--- OUTSIDE RECORDS SUMMARY | 2025-02-11 07:28 | XMS_ITS | Encounter Summary ---
Author Organization [facility] Address [address] [place] [address] [place] [address] Phone Care Team Providers Care Head Operator Sulfide Name Role Phone Ila Holguin MD Primary Care Provider [phone] Encounter Details Date Type Department Care Team (Late st Contact Info) Description 05/10/2022 Procedure Pass [facility], Ct Scan - [facility] [address] [place] [address] Social History Tobacco Use Types Packs/Day Years [...] 4:06 PM EDT Adilson Castillo, FACUNDO * [place] Suicide Severity Rating Scale (Screener/Recent Self-Report) Question [...] documented as of this encounter Care Teams Head Operator Sulfide Relationship Specialty Start Date End Date Ila Holguin MD [address] [place] [address] [email or web address] PCP - General Internal Medicine 05/10/22 documented as of this encounter Additional Source Comments The information contained in this document represents components of the legal health record. It is not the complete legal health record.[facility]
--- OUTSIDE RECORDS SUMMARY | 2025-02-11 07:28 | XMS_ITS | Clinical Summary ---
Author Organization [employer] Address [address] [facility] 7 [place] [address] Care Team Providers Care Typing Bookkeeper Name Role Phone Unavailable Primary Care Provider Unavailabl e Allergies Active Allergy Reactions Criticality Noted Date Comments Ceftriaxone 06/16/2024 Medications nystatin (Mycostatin) 685750 UNIT/GM powder 4 Active traMADol (Ultram) 50 [...] Do not crush, chew, or split. Active alendronate-chol ecalciferol (Fosamax Plus D) 70-5600 MG-UNIT tablet Take 1 tablet by mouth every 7 (seven) days. Take in the morning with a full glass of water, on an empty stomach, and do not take anything else by mouth or lie down for the next 30 min. Active Active Problems No known active problems Encounters Date Type Department Care Team Description 2025 1:00 PM EDT Office Visit [facility] [address] [place] [address] Karla Jones 01/19/2025 2:30 PM EDT Office Visit [facility] [address] [place] [address] Jesus Dejesus DMD from Last 3 Months [...] Care Team (Late st Contact Info) Description 02/23/2025 1:00 PM EDT Office Visit [facility] [address] [place] [address] Jesus Dejesus DMD [address] [place] [address] Health Maintenance Due Date Last Done Comments [...] season) 2024 Influenza Vaccine (#1) 2025 Dental Oral Exam 07/23/2025 01/19/2025 Dental Prophylaxis 08/06/2025 2025, 10/06/2024, 07/05/2024 Dental X-Ray: Bitewings 01/20/2026 01/19/2025 Tobacco Screening 2026 2025 Dental X-Ray: Full Mouth 05/06/2027 05/05/2024 HIB [...] Procedure Name Priority Date/Time Associated Diagnosis Comments TOPICAL APPLICATION OF FLUORIDE VARNISH Routine 2025 1:00 PM EDT PROPHYLAXIS - ADULT Routine 2025 1 :00 PM EDT ORAL HYGIENE INSTRUCTIONS Routine 2024 1:00 PM EDT INTRAORAL - PERIAPICAL EACH ADDITIONAL RADIOGRAPHIC IMAGE Routine 01/19/2025 2:30 PM EDT INTRAORAL - PERIAPICAL FIRST RADIOGRAPHIC IMAGE Routine 01/19/2025 2:30 PM EDT BITEWINGS - 4 RADIOGRAPHIC IMAGES Routine 01/19/2025 2:30 PM EDT PERIODIC ORAL EVALUATION - ESTABLISHED PATIENT Routine 01/19/2025 2:30 PM EDT from Last 3 Months
--- OUTSIDE RECORDS SUMMARY | 2025-02-11 07:28 | XMS_ITS | Clinical Summary ---
Author Organization [facility] it Address [address] [place] [address] Care Team Providers Care Job Analysis Manager Name Role Phone Unavailable Primary Care [...]
[2025-02-11 07:43] LABS: Hematocrit 27.1 % (42.0-52.0); Hemoglobin 8.8 g/dl (14.0-18.0); Mean Corpuscular HGB Conc 32.5 g/dl (31.0-36.0); Mean Corpuscular Hemoglobin 31.4 pg (27.0-33.0); Mean Corpuscular Volume 96.8 fL (80.0-98.0); NRBC Abs Auto 0.000 X10*3/uL (0.0-0.012); NRBC Pct Auto 0.0 /100WBC (0.0-0.2); Platelet Count 144 X10*3/uL (160-400); Red Blood Count 2.80 X10*6/uL (4.60-5.80); White Blood Count 4.4 X10*3/uL (4.8-10.8)
== END 2025-02-11 07:26 | disposition home or self-care (01) ==
LOC: HO.HSH2E 07:25
PROVIDERS: Visit Provider Internal Medicine Endocrinology, Diabetes & Metabolism
DX: N18.9 Chronic kidney disease, unspecified (principal); D63.1 Anemia in chronic kidney disease
CPT/HCPCS: 36415; 85027

== ENCOUNTER 2025-02-16 15:14 | Outpatient (AMB) | payer MEDICARE, SELFPAY ==
--- OUTSIDE RECORDS SUMMARY | 2025-01-31 02:03 | XMS_ITS | Continuity of Care Document ---
Author Name [facility] Organization [facility] Care Team Providers Care Lap Machine Operator Name Role Phone [facility] Unavailable Unavailable Problems Combined list of [...] BY MOUTH ORAL ACTIVE DANIKA BOO 2022 [facility] [place] [facility] DOXYCYCLINE HYCLATE 100MG TAB TAKE ONE TABLET BY MOUTH TWICE DAILY ORAL ACTIVE DANIKA BOO 2022 [facility] [place] [facility] GABAPENTIN 100MG CAP TAKE 1 CAPSULE BY MOUTH TWICE DAILY ORAL ACTIVE DANIKA BOO 2022 [facility] METOPROLOL SUCCINATE 50MG TAB,SA TAKE THREE TABLETS BY MOUTH ONCE DAILY ORAL ACTIVE BOODANIKA Candelario 20[address] [facility] SIMVASTATIN 40MG TAB TAKE ONE-HALF TABLET BY MOUTH AT BEDTIME ORAL ACTIVE BOODANIKA Candelario [address] [facility] WARFARIN (NON-VA) TAB TAKE BY MOUTH ORAL ACTIVE DANIKA BOO [address] [facility] Immunizations Combined list of available immunizations from the Department of Defense and Veterans Affairs facilities. Immunization Series Date Given Administered By Site Reaction Lot Number CVX Code Drug Melter Assistant Status Comments Source COVID-19 ([employer]), MRNA, LNP-S, PF, 30 MCG/0.3 ML DOSE 2021 208 complet ed Booster for Series, HISTORICA L INFORMATI ON - FROM OTHER PROVIDER, Lot#: [id number] [facility] [place] [facility] COVID-19 ([employer]), MRNA, LNP-S, PF, 30 MCG/0.3 ML DOSE 2 2020 208 complet ed HISTORICA L INFORMATI ON - FROM OTHER REGISTRY, JL Mfr: [employer] [place] [facility] COVID-19 ([employer]cloud), MRNA, LNP-S, PF, 30 MCG/0.3 ML DOSE 1 2020 208 complet ed HISTORICA L INFORMATI ON - FROM OTHER REGISTRY, JL Mfr: [employer], INC [facility] Encounters Combined list of: 1) Encounters from Department of Veterans Affairs facilities going backup to the last 18 months, not all [place] inpatient encounters are included; 2) Encounters from the Department of Defense facilities going backup to 280 months. Location Location Details Encounter Type Encounter Number Reason For Visit Attending Provider ADM Date DC Date Status [facility] Outpatient Encounter [id number] 08/06 [place] [facility] [facility] [place] [facility] Outpatient Encounter [id number] 09/23 [facility] [place] [facility] Encounter [id number] Niruka ZHOU 09/29 [facility] [place] WHEELCHAIR MNGMENT TRAINING [id number] Diagnos is: ICD-10- CM 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 Diagnos is: ICD-10- CM Z74.09 Other reduced mobilit y TEDDY DEAN ICA L 04/19 [facility] [place] WHEELCHAIR MNGMENT TRAINING [id number] Diagnos is: ICD-10- CM Z74.09 Other reduced mobilit y TEDDY DEAN ICA L 05/17 [facility] [place] WHEELCHAIR MNGMENT TRAINING [id number] Diagnos is: ICD-10- CM Z74.09 Other reduced mobilit y TEDDY DEAN ICA L 10/19 [facility] [place] Out[facility] Encounter [id number] 01/26 [facility] [place] Social History Combined list of available smoking, tobacco, and other social history from Department of Defense and Veterans Affairs facilities. Social History Type Response Date Comment Sourc e Tobacco smoking status NHIS [place]-TOBACCO FORMER USER 05/21/2023 [facility] of [facility] OR [facility] Plan of Care List of future care activities from Department of Veterans Affairs facilities. Additional future care activities may be listed in the Assessment and Plan section. Date/Time Care Activity Care Activity Detail Facili ty 02/22/2025 AMBULATORY - REHAB MEDICINE AMBULATORY - REHAB MEDICINE [facility]
--- OUTSIDE RECORDS SUMMARY | 2025-02-16 15:44 | XMS_ITS | Clinical Summary ---
Author Organization [facility] Address [address] [place] [address] Phone Care Team Providers Care Supervisor Pre Wave Name Role Phone Vladimir Keys MD Primary Care Provider [phone] Allergies No known active allergies Medications acetaminophen [...] (09/18/2021): Added automatically from request for surgery [id number] Immunizations Immunization Administration Dates Next Due Influenza, Unspecified 04/24/2021,2019,03/14/2017,03/31/2016, 5 Pfizer SARS-COV-2 11/21/2020,10/29/2020 Family History Medical History Relation Comments Diabetes Father Heart disease Father [place] Stroke Mother Relation Status Comments Father Mother [...] EDT Unless otherwise specified, test(s) performed at: [facility] [address] MANUFACTURERS SERVICE REPRESENTATIVE: Chris Gomez M.D. For any questions, please call customer service at FREQUENCY:MONTHLY Resulting Agency Comment Specimen source: Blood Brian Saldaña MD LAB BLOOD BANK TEST ORDERABLES F inal Result APS EBONIE PVNMA from Last 3 Months or Most Recently Relevant to Health Maintenance Insurance Medicare [facility] Medicare [facility] Care Teams Supervisor Pre Wave Relationship Specialty Start Date End Date Vladimir Keys MD [address] [place] [address], [address] [place], [place] PCP - General 07/24/20
--- OUTSIDE RECORDS SUMMARY | 2025-02-16 15:44 | XMS_ITS | Encounter Summary ---
Author Organization [facility] Address [address] [place] [address] [place] [address] Phone Care Team Providers Care Softlines Supervisor Name Role Phone Ila Holguin MD Primary Care Provider [phone] Encounter Details Date Type Department Care Team (Late st Contact Info) Description 05/10/2022 Procedure Pass [facility], Ct Scan - [facility] [address] [place] [address] Social History Tobacco Use Types Packs/Day Years [...] 4:06 PM EDT Adilson Castillo, FACUNDO * [place] Suicide Severity Rating Scale (Screener/Recent Self-Report) Question [...] documented as of this encounter Care Teams Softlines Supervisor Relationship Specialty Start Date End Date Ila Holguin MD [address] [place] [address] [email or web address] PCP - General Internal Medicine 05/10/22 documented as of this encounter Additional Source Comments The information contained in this document represents components of the legal health record. It is not the complete legal health record.[facility]
--- OUTSIDE RECORDS SUMMARY | 2025-02-16 15:44 | XMS_ITS | Clinical Summary ---
Author Organization [employer] Address [address] [facility] 7 [place] [address] Care Team Providers Care Lab Engineer Name Role Phone Unavailable Primary Care Provider Unavailabl e Allergies Active Allergy Reactions Criticality Noted Date Comments Ceftriaxone 06/16/2024 Medications nystatin (Mycostatin) 062794 UNIT/GM powder 4 Active traMADol (Ultram) 50 [...] Description 2025 1:00 PM EDT Office Visit [facility] [address] [place] [address] Karla Jones 01/19/2025 2:30 PM EDT Office Visit [facility] [address] [place] [address] Jesus Dejesus DMD from Last 3 Months [...] Description 02/23/2025 1:00 PM EDT Office Visit [facility] [address] [place] [address] Jesus Dejesus DMD [address] [place] [address] Health Maintenance Due Date Last Done Comments [...]
--- OUTSIDE RECORDS SUMMARY | 2025-02-16 15:44 | XMS_ITS | Clinical Summary ---
Author Organization [facility] it Address [address] [place] [address] Care Team Providers Care Stand Up Forklift Operator Name Role Phone Unavailable Primary Care [...]
--- NOTE | 2025-02-17 15:43 | A.OFFVIS_ITS ---
Intake Visit Reasons: PSA/ PVR follow up Allergies ceftriaxone Allergy (Verified 01/07/25 09:56) Unknown COUNTS INCLUDE 234 BEDS AT [facility] Medical History Hx of decubitus ulcer Former smoker Peripheral neuropathy Compartment syndrome of right lower extremity Osteoarthritis Pancreatic cyst Gout ASHD (arteriosclerotic heart disease) Aortic stenosis Chronic kidney disease Chronic combined systolic and diastolic CHF (congestive heart failure) Nonrheumatic aortic (valve) stenosis Anemia Endocarditis Afib Obesity Hyperlipidemia Murmur HTN (hypertension) Neuropathy Diabetes Surgical History Hx of ankle fusion History of total bilateral knee replacement Hx of aortic valve replacement Social History Patient Tobacco Use Status: Former Tobacco user 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
--- NOTE | 2025-03-27 21:30 | A.OFFVIS_ITS ---
Intake Intake Visit Reasons: Follow up Allergies ceftriaxone Allergy (Verified 01/07/25 09:56) Unknown HPI HPI Comments History of Present Illness Details 02/16/25--Gume is a very pleasant 79-yea r-old male patient who resides [facility]. He has a past medical history of type 2 diabetes, neuropathy, hypertension, cardiac murmur, hyperlipidemia, obesity, AFib, endocarditis, anemia, nonrheumatic aortic valve stenosis, chronic combined systolic and diastolic heart failure, and chronic kidney disease stage 3. He is being followed up on today for penile irritation. Patient underwent circumcision 01/20/[address] Ruiz No. He denies hematuria, dysuria, foul smelling urine, changes to urinary stream, flank pain, fever, and or chills. Patient also with a history of an elevated PSA and was recently started on Proscar. PSA-- 01/23/24-- 20.30 ng/mL, 05/04/24--- 12.3 ng/mL, 07/16/24-12.07 ng/mL, 02/07/25--11.04 ng/mL. Plan- Cont proscar 5 mg, FU 6 months PFSH Medical History Hx of decubitus ulcer Former smoker Peripheral neuropathy Compartment syndrome of right lower extremity Osteoarthritis Pancreatic cyst Gout ASHD (arteriosclerotic heart disease) Aortic stenosis Chronic kidney disease Chronic combined systolic and diastolic CHF (congestive heart failure) Nonrheumatic aortic (valve) stenosis Anemia Endocarditis Afib Obesity Hyperlipidemia Murmur HTN (hypertension) Neuropathy Diabetes Surgical History Hx of ankle fusion History of total bilateral knee replacement Hx of aortic valve replacement Social History Patient Tobacco Use Status: Former Tobacco user Review of Systems Const All systems reviewed & are unremarkable except as noted in HPI and below Reports no additional complaints Eyes Reports no additional complaints ENT Reports no additional complaints Card Reports no additional complaints Resp Reports no additional complaints GI Reports no additional complaints Reports as per HPI Musc Reports no additional complaints Skin/Breast Reports system reviewed and no additional complaints, except as documented Neuro Reports no additional complaints Psych Reports no additional complaints Endo Reports no additional complaints [place]/Lymph Reports no additional complaints Aller/Immun Reports no additional complaints Assessment & Plan Assessment & Plan (1) Elevated PSA: Code(s): R97.20 - Elevated prostate specific antigen [PSA] (2) CKD (chronic kidney disease) stage 4, GFR 15-29 ml/min: Code(s): N18.4 - Chronic kidney disease, stage 4 (severe) (3) Urinary frequency: Code(s): R35.0 - Frequency of micturition Plan Six-month follow-up PSA Coding Level of Care Code 50248-Qlen Fac sub, low Diagnoses Elevated PSA R97.20 CKD (chronic kidney disease) stage 4, GFR 15-29 ml/min N18.4 Urinary frequency R35.0
== END 2025-02-16 16:30 | disposition home or self-care (01) ==
LOC: HO.HUSV 15:14
PROVIDERS: PCP Internal Medicine Endocrinology, Diabetes & Metabolism; Visit Provider Urology
DX: R97.20 Elevated prostate specific antigen [PSA] (principal); N18.4 Chronic kidney disease, stage 4 (severe); R35.0 Frequency of micturition
CPT/HCPCS: 99308

== ENCOUNTER 2025-02-21 07:22 | Outpatient (REF) | payer MEDICARE, SELFPAY ==
--- OUTSIDE RECORDS SUMMARY | 2025-01-31 02:03 | XMS_ITS | Continuity of Care Document ---
Author Name [facility] Organization [facility] Care Team Providers Care Pmp Project Manager Name Role Phone [facility] Unavailable Unavailable Problems Combined list of problems from Department of Defense and Veterans Affairs facilities. It does not include entries that were removed or entered in error. 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 Active 07/14/19 22 Condition [facility] Chronic systolic heart failure Active 07/14/19 22 Condition [facility] COVID-19 Active 07/14/19 22 Condition [facility] Cyst of pancreas Active 07/14/19 22 Condition [facility] Endocarditis Active 07/14/19 22 Condition May 21, 2023 Entered By: MAREN CAMPUZANO Comment: Prosthetic valve endocarditis [facility] Gout Active 07/14/19 22 Condition [facility] H/O: obesity Active 07/14/19 22 Condition [facility] Hypertensive disorder Active 07/14/19 22 Condition [facility] Hypertensive heart AND chronic kidney disease stage 4 Active 07/14/19 22 Condition [facility] Left bundle branch block Active 07/14/19 22 Condition [facility] Non-rheumatic mitral valve stenosis Active 07/14/19 22 Condition [facility] Urinary tract infectious disease Active 07/14/19 21 Condition May 21, 2023 Entered By: MAREN CAMPUZANO Comment: Multiple UTI's [facility] Neuropathy Active 07/14/19 18 Condition May 21, 2023 Entered By: MAREN CAMPUZANO Comment: Left lower leg [facility] Shoulder pain Active 07/14/19 18 Condition May 21, 2023 Entered By: MAREN CAMPUZANO Comment: Needs Right shoulder replacemnet [facility] Ankle pain Active 07/14/19 17 Condition May 21, 2023 Entered By: MAREN CAMPUZANO Comment: History of arthrodesis of ankle [facility] Osteoarthritis Active 07/14/19 16 Condition May 21, 2023 Entered By: MAREN CAMPUZANO Comment: Primary osteoarthritis, left ankle and foot [facility] History of bilateral total knee replacement Active 07/14/19 13 Condition [facility] History of aortic valve replacement Active 07/14/19 08 Condition May 27, 2023 Entered By: EMRE BOO Comment: s/p TAVR [facility] Diabetes mellitus type 2 Active 07/14/18 80 Condition [facility] Atrial fibrillation Active 07/14/18 60 Condition [facility] Phimosis Active Condition [facility] Diagnosis: ICD-10-CM Z74.09 Other reduced mobility Active Diagnosis [facility] Medications Combined list of outpatient medications from Department of Defense and Veterans Affairs facilities.Medications provided include 1) outpatient medications from the last 15 months, and 2) patient-reported medications. Medication Details Route Status Patient Instructions Prescription Expires Prescription Number Last Dispense Date Ordering Provider Order Date Order Qty Source CYANOCOBALA MIN TAB TAKE BY MOUTH ORAL ACTIVE DANIKA BOO 2022 [facility] DOXYCYCLINE HYCLATE 100MG TAB TAKE ONE TABLET BY MOUTH TWICE DAILY ORAL ACTIVE DANIKA BOO 2022 [facility] GABAPENTIN 100MG CAP TAKE 1 CAPSULE BY MOUTH TWICE DAILY ORAL ACTIVE DANIKA BOO 2022 [facility] METOPROLOL SUCCINATE 50MG TAB,SA TAKE THREE TABLETS BY MOUTH ONCE DAILY ORAL ACTIVE BOODANIKA Candelario 2022 [facility] SIMVASTATIN 40MG TAB TAKE ONE-HALF TABLET BY MOUTH AT BEDTIME ORAL ACTIVE BOODANIKA Candelario 2022 [facility] WARFARIN (NON-VA) TAB TAKE BY MOUTH ORAL ACTIVE DANIKA BOO 2022 [facility] Immunizations Combined list of available immunizations from the Department of Defense and Veterans Affairs facilities. Immunization Series Date Given Administered By Site Reaction Lot Number CVX Code Drug Dicer Machine Operator Status Comments Source COVID-19 (Omicia), MRNA, LNP-S, PF, 30 MCG/0.3 ML DOSE 2021 208 complet ed Booster for Series, HISTORICA L INFORMATI ON - FROM OTHER PROVIDER, Lot#: [id number] [facility] [place] [facility] COVID-19 (Omicia), MRNA, LNP-S, PF, 30 MCG/0.3 ML DOSE 2 2020 208 complet ed HISTORICA L INFORMATI ON - FROM OTHER REGISTRY, JL Mfr: [employer] [place] [facility] [facility] COVID-19 (Omicia), MRNA, LNP-S, PF, 30 MCG/0.3 ML DOSE 1 2020 208 complet ed HISTORICA L INFORMATI ON - FROM OTHER REGISTRY, JL Mfr: [employer], INC [facility] Encounters Combined list of: 1) Encounters from Department of Veterans Affairs facilities going backup to the last 18 months, not all [place] inpatient encounters are included; 2) Encounters from the Department of Defense facilities going backup to 280 months. Location Location Details Encounter Type Encounter Number Reason For Visit Attending Provider ADM Date DC Date Status [facility] Outpatient Encounter [id number] 08/06 [place] [facility] [facility] [place] [place] [facility] Outpatient Encounter [id number] 09/23 [facility] En[facility] [id number] Niurka ZHOU 09/29 [facility] WHEEL[facility] MNGMENT TRAINING [id number] Diagnos is: ICD-10- CM Z74.09 Other reduced mobilit y TEDDY DEAN ICA L 01/07 [facility] En[facility] [id number] Stephane BOO 02/01 [facility] En[facility] [id number] 02/17 [facility] WHEELCHAIR MNGMENT TRAINING [id number] 1. Diagnos is: ICD-10- CM Z74.09 Other reduced mobilit y TEDDY DEAN ICA L 04/19 [facility] WHEELCHAIR MNGMENT TRAINING [id number] Diagnos is: ICD-10- CM Z74.09 Other reduced mobilit y TEDDY DEAN ICA L 05/17 [facility] WHEELCHAIR MNGMENT TRAINING [id number] Diagnos is: ICD-10- CM Z74.09 Other reduced mobilit y TEDDY DEAN ICA L 10/19 [facility] En[facility] [id number] 01/26 [facility] Social History Combined list of available smoking, tobacco, and other social history from Department of Defense and Veterans Affairs facilities. Social History Type Response Date Comment Sourc e Tobacco smoking status NHIS [place]-TOBACCO FORMER USER 05/21/2023 [facility] of [facility] Plan of Care List of future care activities from Department of Veterans Affairs facilities. Additional future care activities may be listed in the Assessment and Plan section. Date/Time Care Activity Care Activity Detail Facili ty 02/22/2025 AMBULATORY - REHAB MEDICINE AMBULATORY - REHAB MEDICINE [facility]
--- OUTSIDE RECORDS SUMMARY | 2025-02-21 07:24 | XMS_ITS | Encounter Summary ---
Author Organization [facility] Address [address] [place] [address] [place] [address] Phone Care Team Providers Care Sales Engineer Name Role Phone Ila Holguin MD Primary Care Provider [phone] Encounter Details Date Type Department Care Team (Late st Contact Info) Description 05/10/2022 Procedure Pass [facility], Ct Scan - [facility] [address] [place] [address] Social History Tobacco Use Types Packs/Day Years [...] 4:06 PM EDT Adilson Castillo, FACUNDO * Trail Suicide Severity Rating Scale (Screener/Recent Self-Report) Question [...] documented as of this encounter Care Teams Sales Engineer Relationship Specialty Start Date End Date Ila Holguin MD [address] [place] [address] [email or web address] PCP - General Internal Medicine 05/10/22 documented as of this encounter Additional Source Comments The information contained in this document represents components of the legal health record. It is not the complete legal health record.[facility]
--- OUTSIDE RECORDS SUMMARY | 2025-02-21 07:24 | XMS_ITS | Clinical Summary ---
Author Organization [facility] it Address [address] [place] [address] Care Team Providers Care Tape Cutting Machine Operator Name Role Phone Unavailable Primary Care [...]
--- OUTSIDE RECORDS SUMMARY | 2025-02-21 07:24 | XMS_ITS | Clinical Summary ---
Author Organization [employer] Address [address] [facility] 7 [place] [address] Care Team Providers Care Veterans Service Officer Name Role Phone Unavailable Primary Care Provider Unavailabl e Allergies Active Allergy Reactions Criticality Noted Date Comments Ceftriaxone 06/16/2024 Medications nystatin (Mycostatin) 219633 UNIT/GM powder 4 Active traMADol (Ultram) 50 [...] Description 2025 1:00 PM EDT Office Visit [facility] [address] [place] [address] Karla Jones 01/19/2025 2:30 PM EDT Office Visit [facility] [address] [place] [address] Jesus Dejesus DMD from Last 3 Months [...] Description 02/23/2025 1:00 PM EDT Office Visit [facility] [address] [place] [address] Jesus Dejesus DMD [address] [place] [address] Health Maintenance Due Date Last Done Comments [...]
--- OUTSIDE RECORDS SUMMARY | 2025-02-21 07:24 | XMS_ITS | Clinical Summary ---
Author Organization [facility] Address [address] [place] [address] Phone Care Team Providers Care Director Of Front Office Name Role Phone Vladimir Keys MD Primary Care Provider Allergies No known active allergies Medications acetaminophen [...] (09/18/2021): Added automatically from request for surgery [id number] Immunizations Immunization Administration Dates Next Due Influenza, Unspecified 04/24/2021,2019,03/14/2017,03/31/2016, 5 Pfizer SARS-COV-2 11/21/2020,10/29/2020 Family History Medical History Relation Comments Diabetes Father Heart disease Father [place] Stroke Mother Relation Status Comments Father Mother [...] EDT Unless otherwise specified, test(s) performed at: [facility] [address] STEEL FINISHER: Chris Gomez M.D. For any questions, please call customer service at FREQUENCY:MONTHLY Resulting Agency Comment Specimen source: Blood Brian Saldaña MD LAB BLOOD BANK TEST ORDERABLES F inal Result APS EBONIE PVNMA from Last 3 Months or Most Recently Relevant to Health Maintenance Insurance Medicare [facility] Medicare [facility] Care Teams Director Of Front Office Relationship Specialty Start Date End Date Vladimir Keys MD [address] [place] [address], [address] [place], [place] PCP - General 07/24/20
[2025-02-21 08:09] LABS: INTERNATIONAL NORM RATIO 2.5 (0.9-1.1); Prothrombin Time 28.8 SEC (10.9-12.4)
== END 2025-02-21 07:23 | disposition home or self-care (01) ==
LOC: HO.HSH2E 07:22
PROVIDERS: Visit Provider Internal Medicine Endocrinology, Diabetes & Metabolism
DX: Z95.2 Presence of prosthetic heart valve (principal)
CPT/HCPCS: 36415; 85610

== ENCOUNTER 2025-03-01 05:48 | Outpatient (REF) | payer MEDICARE, SELFPAY ==
[2025-03-01 06:25] LABS: INTERNATIONAL NORM RATIO 2.5 (0.9-1.1); Prothrombin Time 29.2 SEC (10.9-12.4)
== END 2025-03-01 05:49 | disposition home or self-care (01) ==
LOC: HO.HSH2E 05:48
PROVIDERS: Visit Provider Internal Medicine Endocrinology, Diabetes & Metabolism
DX: Z95.2 Presence of prosthetic heart valve (principal)
CPT/HCPCS: 36415; 85610

== ENCOUNTER 2025-03-04 06:28 | Outpatient (REF) | payer MEDICARE, SELFPAY ==
--- OUTSIDE RECORDS SUMMARY | 2025-03-01 14:00 | XMS_ITS | Encounter Summary ---
Author Organization [employer] Address [address] [facility] [address] [place] [address] Care Team Providers Care Dieing Out Machine Operator Name Role Phone Unavailable Primary Care Provider Unavailabl e Reason for Visit * Reason Comments Extraction Tooth#20 Encounter Details Date Type Department Care Team (Late st Contact Info) Description 03/01/2025 2:00 PM EDT Office Visit [facility] [address] [place] [address] Timothy Feng DDS [address] [place] [address] Social History Tobacco Use Types Packs/Day Years [...] Sign Reading Time Taken Comments Blood Pressure 138/78 03/01/2025 2:09 PM EDT Pulse 70 03/01/2025 2:09 PM EDT Temperature - - Respiratory Rate - - Oxygen Saturation - - Inhaled Oxygen Concentration - - Weight - - Height - - Body Mass Index - - documented in this encounter Plan of Treatment Scheduled Orders Name Type Priority Associated Diagnoses Orde r Schedule CASE PRESENTATION, DETAILED AND EXTENSIVE TREATMENT PLANNING Dental Routine 1 Occurrences starting 03/01/2025 INTRAORAL - PERIAPICAL FIRST RADIOGRAPHIC IMAGE Dental Routine 1 Occur rences starting 03/01/2025 18 18 EXTRACTION, ERUPTED TOOTH REQ REMOVAL OF BONE AND/OR SECTIONING OF TOOTH Dental Routine [address] arting 03/01/2025 documented as of this encounter Visit Diagnoses Not on filedocumented in this encounter
--- OUTSIDE RECORDS SUMMARY | 2025-03-04 01:30 | XMS_ITS | Continuity of Care Document ---
Author Name [facility] Organization [facility] Care Team Providers Care Specialist Wound Care Name Role Phone [facility] Unavailable Unavailable Problems Combined list of problems [...] ORAL ACTIVE DANIKA BOO 2022 [facility] [place] [facility] DOXYCYCLINE HYCLATE 100MG TAB TAKE ONE TABLET BY MOUTH TWICE DAILY ORAL ACTIVE DANIKA BOO 2022 [facility] [place] [facility] GABAPENTIN 100MG CAP TAKE 1 CAPSULE BY MOUTH TWICE DAILY ORAL ACTIVE DANIKA BOO 2022 [facility] METOPROLOL SUCCINATE 50MG TAB,SA TAKE THREE TABLETS BY MOUTH ONCE DAILY ORAL ACTIVE BOODANIKA Candelario 2022 [facility] SIMVASTATIN 40MG TAB TAKE ONE-HALF TABLET BY MOUTH AT BEDTIME ORAL ACTIVE BOODANIKA Candelario 2022 [facility] WARFARIN (NON-VA) TAB TAKE BY MOUTH ORAL ACTIVE DANIKA BOO 2022 [facility] Immunizations Combined list of available immunizations from the Department of Defense and Veterans [facility] facilities. Immunization Series Date Given Administered By Site Reaction Lot Number CVX Code Drug Pet Resort Concierge Status Comments Source COVID-19 ([employer]), MRNA, LNP-S, PF, 30 MCG/0.3 ML DOSE 2021 208 complet ed Booster for Series, HISTORICA L INFORMATI ON - FROM OTHER PROVIDER, Lot#: [id number] [facility] COVID-19 ([employer]), MRNA, LNP-S, PF, 30 MCG/0.3 ML DOSE 2 2020 208 complet ed HISTORICA L INFORMATI ON - FROM OTHER REGISTRY, JL Mfr: [employer], [employer] [facility] [place] [facility] COVID-19 ([employer]), MRNA, LNP-S, PF, 30 MCG/0.3 ML DOSE 1 2020 208 complet ed HISTORICA L INFORMATI ON - FROM OTHER REGISTRY, JL Mfr: [employer], INC [facility] Encounters Combined list of: 1) Encounters from Department of Veterans Affairs facilities going backup to the last 18 months, not all [place] inpatient encounters are included; 2) Encounters from the Department of [facility] facilities going backup to 280 months. Location Location Details Encounter Type Encounter Number Reason For Visit Attending Provider ADM Date DC Date Status Disposition Source [facility] [place] [facility] Outpatient Encounter [id number] 09[facility] Outpatient Encounter [id number] Niurka ZHOU 09/29 [facility] [place] WHEELCHAIR MNGMENT TRAINING [id number] Diagnos is: ICD-10- CM Z74.09 Other reduced mobilit y TEDDY DEAN ICA L 01/07 [facility] [place] Out[facility] En[facility] [id number] Stephane BOO 02/01 [facility] [place] En[facility] [id number] [facility] [place] [place] WHEELCHAIR MNGMENT TRAINING [id number] 1. Diagnos is: ICD-10- CM Z74.09 Other reduced mobilit y TEDDY DEAN ICA L 04/19 [facility] [place] [place] WHEELCHAIR MNGMENT TRAINING [id number] Diagnos is: ICD-10- CM Z74.09 Other reduced mobilit y GIBRAN DEANSS ICA L 05/17 [facility] [place] [place] WHEELCHAIR MNGMENT TRAINING [id number] Diagnos is: ICD-10- CM Z74.09 Other reduced mobilit y DEANTEDDY KAPADIA ICA L 10/19 [facility] [place] En[facility] [id number] 01/26 [facility] [place] [place] WHEELCHAIR MNGMENT TRAINING [id number] Diagnos is: ICD-10- CM Z74.09 Other reduced mobilit y DEAN,TEDDY ICA L 02/22 [facility] [place] [facility] Social History Combined list of available smoking, tobacco, and other social history from Department of Defense and Veterans Affairs facilities. Social History Type Response Date Comment Sour e Tobacco smoking status NHIS VA-TOBACCO FORMER USER 05[place]21/2023 [place] [facility] [place] [facility] History of tobacco use VA-TOBACCO QUIT 15 YRS OR MORE 05/21/20[facility]
[2025-03-04 06:31] LABS: MANUAL DIFF FLAG NO
--- OUTSIDE RECORDS SUMMARY | 2025-03-04 06:31 | XMS_ITS | Clinical Summary ---
Author Organization [facility] it Address [address] [place] [address] Care Team Providers Care Shade Cutter Name Role Phone Unavailable Primary Care [...]
--- OUTSIDE RECORDS SUMMARY | 2025-03-04 06:31 | XMS_ITS | Clinical Summary ---
Author Organization [facility] Address [address] [place] [address] Phone Care Team Providers Care Drywall Stripper Name Role Phone Vladimir Keys MD Primary Care Provider [phone] Allergies No known active allergies Medications acetaminophen [...] (09/18/2021): Added automatically from request for surgery [id number] Immunizations Immunization Administration Dates Next Due Influenza, Unspecified 04/24/2021,2019,03/14/2017,03/31/2016, 5 Pfizer SARS-COV-2 11/21/2020,10/29/2020 Family History Medical History Relation Comments Diabetes Father Heart disease Father [place] Stroke Mother Relation Status Comments Father Mother [...] EDT 04/18/2022 7:02 AM EDT Narrative APS EBONIE PVNMA - 04/17/2022 3:00 PM EDT Unless otherwise specified, test(s) performed at: [address] [address] ZINC PLATING MACHINE OPERATOR: Chris Gomez M.D. For any questions, please call customer service at FREQUENCY:MONTHLY Resulting Agency Comment Specimen source: Blood Brian Saldaña MD LAB BLOOD BANK TEST ORDERABLES F inal Result APS EBONIE PVNMA from Last 3 Months or Most Recently Relevant to Health Maintenance Insurance Medicare [facility] Medicare [facility] Care Teams Drywall Stripper Relationship Specialty Start Date End Date Vladimir Keys MD [address] [place] [address], [address] [place], [place] PCP - General 07/24/20
--- OUTSIDE RECORDS SUMMARY | 2025-03-04 06:31 | XMS_ITS | Encounter Summary ---
Author Organization [facility] Address [address] [place] [address] [place] [address] Phone Care Team Providers Care Mail Inserter Name Role Phone Ila Holguin MD Primary Care Provider [phone] Encounter Details Date Type Department Care Team (Late st Contact Info) Description 05/10/2022 Procedure Pass [facility], Ct Scan - [facility] [address] [place] [address] Social History Tobacco Use Types Packs/Day Years [...] No Risk Indicated 05/10/2022 4:06 PM EDT Aidlson Castillo, FACUNDO * [place] Suicide Severity Rating Scale (Screener/Recent Self-Report) Question [...] documented as of this encounter Care Teams Mail Inserter Relationship Specialty Start Date End Date Ila Holguin MD [address] [place] [address] [email or web address] PCP - General Internal Medicine 05/10/22 documented as of this encounter Additional Source Comments The information contained in this document represents components of the legal health record. It is not the complete legal health record.[facility]
[2025-03-04 07:18] LABS: Hematocrit 29.9 % (42.0-52.0); Hemoglobin 9.4 g/dl (14.0-18.0); Imm Gran Abs Auto 0.01 X10*3/uL (0.00-0.03); Imm Gran Pct Auto 0.2 % (0.0-0.4); Lymphocytes Absolute Auto 0.7 X10*3/uL (1.2-4.9); Mean Corpuscular HGB Conc 31.4 g/dl (31.0-36.0); Mean Corpuscular Hemoglobin 31.2 pg (27.0-33.0); Mean Corpuscular Volume 99.3 fL (80.0-98.0); NRBC Abs Auto 0.000 X10*3/uL (0.0-0.012); NRBC Pct Auto 0.0 /100WBC (0.0-0.2); Platelet Count 152 X10*3/uL (160-400); Red Blood Count 3.01 X10*6/uL (4.60-5.80); White Blood Count 4.1 X10*3/uL (4.8-10.8)
== END 2025-03-04 06:29 | disposition home or self-care (01) ==
LOC: HO.HSH2E 06:28
PROVIDERS: Internal Medicine Nephrology; Visit Provider Internal Medicine Endocrinology, Diabetes & Metabolism
DX: I12.9 Hypertensive chronic kidney disease with stage 1 through stage 4 chronic kidney disease, or unspecified chronic kidney disease (principal); N18.4 Chronic kidney disease, stage 4 (severe); D63.1 Anemia in chronic kidney disease; E55.9 Vitamin D deficiency, unspecified
CPT/HCPCS: 36415; 85025

== ENCOUNTER 2025-03-07 07:26 | Outpatient (REF) | payer MEDICARE, SELFPAY ==
--- OUTSIDE RECORDS SUMMARY | 2025-03-04 01:30 | XMS_ITS | Continuity of Care Document ---
Author Name [facility] Organization [facility] Care Team Providers Care Senior National Account Manager Name Role Phone [facility] Unavailable Unavailable Problems Combined list of problems [...] BY MOUTH ORAL ACTIVE DANIKA BOO 2022 [facility] [place] DOXYCYCLINE HYCLATE 100MG TAB TAKE ONE TABLET BY MOUTH TWICE DAILY ORAL ACTIVE DANIKA BOO 2022 [facility] [place] [facility] GABAPENTIN 100MG CAP TAKE 1 CAPSULE BY MOUTH TWICE DAILY ORAL ACTIVE D[facility]IKA BOO [facility] METOPROLOL SUCCINATE 50MG TAB,SA TAKE THREE TABLETS BY MOUTH ONCE DAILY ORAL ACTIVE BOODANIKA Candelario 2022 [facility] SIMVASTATIN 40MG TAB TAKE ONE-HALF TABLET BY MOUTH AT BEDTIME ORAL ACTIVE BOODANIKA Candelario 2022 [facility] WARFARIN (NON-VA) TAB TAKE BY MOUTH ORAL ACTIVE DANIKA BOO 2022 [facility] Immunizations Combined list of available immunizations from the Department of Defense and Veterans [facility] facilities. Immunization Series Date Given Administered By Site Reaction Lot Number CVX Code Drug Svp Group Director Status Comments Source COVID-19 ([employer]), MRNA, LNP-S, PF, 30 MCG/0.3 ML DOSE 2021 208 complet ed Booster for Series, HISTORICA L INFORMATI ON - FROM OTHER PROVIDER, Lot#: [id number] [facility] COVID-19 ([employer]), MRNA, LNP-S, PF, 30 MCG/0.3 ML DOSE 2 2020 208 complet ed HISTORICA L INFORMATI ON - FROM OTHER REGISTRY, JL Mfr: [employer], INC [facility] [place] [facility] COVID-19 ([employer]), MRNA, LNP-S, PF, 30 MCG/0.3 ML DOSE 1 2020 208 complet ed HISTORICA L INFORMATI ON - FROM OTHER REGISTRY, JL Mfr: [employer], INC [facility] Encounters Combined list of: 1) Encounters from Department of Veterans Affairs facilities going backup to the last 18 months, not all [place] inpatient encounters are included; 2) Encounters from the Department of [facility] facilities going backup to 280 months. Location Location Details Encounter Type Encounter Number Reason For Visit Attending Provider ADM Date DC Date Status Disposition Source [facility] [place] [facility] Outpatient Encounter [id number] 09/23 [facility] [place] [facility] Outpatient Encounter [id number] Niurka ZHOU 09[facility]29 [facility] WHEELCHAIR MNGMENT TRAINING [id number] Diagnos is: ICD-10- CM Z74.09 Other reduced mobilit y TEDDY DEAN ICA L 01/07 [facility] En[facility] [id number] Stephane BOO 02/01 [facility] [place] En[facility] [id number] [facility] [place] WHEELCHAIR MNGMENT TRAINING [id number] 1. Diagnos is: ICD-10- CM Z74.09 Other reduced mobilit y TEDDY DEAN ICA L 04/19 [facility] WHEELCHAIR MNGMENT TRAINING [id number] Diagnos is: ICD-10- CM Z74.09 Other reduced mobilit y GIBRAN DEANSS ICA L 05/17 [facility] [place] WHEELCHAIR MNGMENT TRAINING [id number] Diagnos is: ICD-10- CM Z74.09 Other reduced mobilit y DEANTEDDY KAPADIA ICA L 10/19 [facility] Encounter [id number] 01/26 [facility] [place] WHEELCHAIR MNGMENT TRAINING [id number] Diagnos is: ICD-10- CM Z74.09 Other reduced mobilit y DEAN,TEDDY ICA L 02/22 [facility] [place] [facility] Social History Combined list of available smoking, tobacco, and other social history from Department of Defense and Veterans Affairs facilities. Social History Type Response Date Comment Sour e Tobacco smoking status NHIS VA-TOBACCO FORMER USER 05/21/2023 [place] [facility] [place] [facility] History of tobacco use VA-TOBACCO QUIT 15 YRS OR MORE 05/21/2023 [facility] [employer] [facility]
--- OUTSIDE RECORDS SUMMARY | 2025-03-07 07:29 | XMS_ITS | Encounter Summary ---
Author Organization [facility] Address [address] [place] [address] [place] [address] Phone Care Team Providers Care Wood Dowel Machine Operator Name Role Phone Ila Holguin MD Primary Care Provider [phone] Encounter Details Date Type Department Care Team (Late st Contact Info) Description 05/10/2022 Procedure Pass [facility], Ct Scan - [facility] [address] [place] [address] Social History Tobacco Use Types Packs/Day Years [...] 4:06 PM EDT Adilson Castillo, FACUNDO * [place] Suicide Severity Rating Scale (Screener/Recent Self-Report) Question [...] documented as of this encounter Care Teams Wood Dowel Machine Operator Relationship Specialty Start Date End Date Ila Holguin MD [address] [place] [address] [email or web address] PCP - General Internal Medicine 05/10/22 documented as of this encounter Additional Source Comments The information contained in this document represents components of the legal health record. It is not the complete legal health record.[facility]
--- OUTSIDE RECORDS SUMMARY | 2025-03-07 07:29 | XMS_ITS | Clinical Summary ---
Author Organization [facility] it Address [address] [place] [address] Care Team Providers Care Guest Services Representative Name Role Phone Unavailable Primary Care Provider [...]
--- OUTSIDE RECORDS SUMMARY | 2025-03-07 07:29 | XMS_ITS | Clinical Summary ---
Author Organization [facility] Address [address] [place] [address] Phone Care Team Providers Care Header Dock Name Role Phone Vladimir Keys MD Primary Care Provider [phone] Allergies No known active allergies Medications acetaminophen [...] (09/18/2021): Added automatically from request for surgery [id number] Immunizations Immunization Administration Dates Next Due Influenza, [...] EDT Unless otherwise specified, test(s) performed at: [employer] [address] BENEFITS ASSISTANT: Chris Gomez M.D. For any questions, please call customer service at FREQUENCY:MONTHLY Resulting Agency Comment Specimen source: Blood Brian Saldaña MD LAB BLOOD BANK TEST ORDERABLES F inal Result APS EBONIE PVNMA from Last 3 Months or Most Recently Relevant to Health Maintenance Insurance Medicare [facility] Medicare [facility] Care Teams Header Dock Relationship Specialty Start Date End Date Vladimir Keys MD [address] [place] [address], [address] [place], [place] PCP - General 07/24/20
[2025-03-07 08:04] LABS: INTERNATIONAL NORM RATIO 2.0 (0.9-1.1); Prothrombin Time 22.7 SEC (10.9-12.4)
== END 2025-03-07 07:27 | disposition home or self-care (01) ==
LOC: HO.HSH2E 07:26
PROVIDERS: Visit Provider Internal Medicine Endocrinology, Diabetes & Metabolism
DX: Z13.89 Encounter for screening for other disorder (principal); Z51.81 Encounter for therapeutic drug level monitoring
CPT/HCPCS: 36415; 85610

== ENCOUNTER 2025-03-16 06:48 | Outpatient (REF) | payer MEDICARE, SELFPAY ==
--- OUTSIDE RECORDS SUMMARY | 2024-04-19 10:30 | XMS_ITS ---
Author Name [facility] Organization [facility] [place] Address [address] [place] [id number] Care Team Providers Care Civil Drafter Name Role Phone DANIKA BOO [facility] Insurance Providers: All historical and current Section Date Range: From patient's date of to the date document was created. This section includes the names of all active insurance providers for the patient. Insurance Provider Type of Coverage Plan Name Start of Policy Coverage End of Policy Coverage Group Number Member ID Insurance Provider's Telephone Number Policy De La Fuente's Name Patient's Relationship to Policy De La Fuente AARP MED SUPP MEDICARE SUPPLEMEN ISAIAS PLAN MY Jul 14, 2022 PLAN MY [id number] KENDRA GOMEZ PATIENT AARP MED SUPP MEDICARE SUPPLEMEN ISAIAS Jul 14, 2010 PLANMY [id number] KENDRA GOMEZ PATIENT MEDICARE (WNR) MEDICARE (M) PART A Jan 12, 2008 PART A [id number] KENDRA GOMEZ PATIENT MEDICARE (WNR) MEDICARE (M) PART B Jan 12, 2008 PART B [id number] [phone] KENDRA GOMEZ PATIENT MEDICARE (WNR) MEDICARE (M) PART A Jan 12, 2008 PART A [id number] KENDRA GOMEZ PATIENT MEDICARE (WNR) MEDICARE (M) PART B Jan 12, 2008 PART B [id number] KENDRA GOMEZ PATIENT Selected Encounter This section includes the information on record at [place] for the Encounter. Date/Time Encounter Type Encounter Description Reason Provider Source Apr 19, 2024 02:30 PM WHEELCHAIR MNGMENT TRAINING WHEELCHAIR & ADVAN MOBILITY ICD-10-CM Z74.09 Other reduced mobility DANDY DEAN IHE Encounter Template Text not used by [place] Assessments - Encounter Diagnoses This section includes the primary and secondary diagnoses documented for the Encounter. Date/Time Primary/Secondary Diagnosis Diagnosis Name Provider Source Apr 21, 2024 08:52 AM PRIMARY Other reduced mobility DANDY DEAN [facility] Plan of Treatment: Future Appointments (+ 6 months) and Future Tests (+/- 45 days) The Plan of Treatment section includes future care activities for the patient from all [place] [facility]. This section includes future appointments and future orders which are active, pending or scheduled. Future Appointments This section includes appointments that were scheduled to occur 6 months from the date of the Encounter, up to a maximum of 20 appointments. The data comes from all [place] treatment facilities. Appointment Date/Time Appointment Type Appointme nt Facility Name May 17, 2024 01:30 PM AMBULATORY - REHAB MEDICIN E [facility] Social History: Smoking Status (Most current) and Tobacco Use (All prior to encounter date) This section includes the most current, and the historical, smoking and tobacco- related health factors from the [place] facility where the Encounter took place. Current Smoking Status This section includes the most current smoking, or tobacco-related health factor, from the [place] facility where the Encounter took place. Date/Time Current Smoking Status Comment Facil ity May 21, 2023 04:57 PM VA-TOBACCO FORMER USER [facility] Tobacco Use History This section includes a history of the smoking, or tobacco-related health factors, that were collected on or before the date of the Encounter. The data comes from the [place] facility where the Encounter took place. Date/Time Smoking Status/Tobacco Use Comment F acility May 21, 2023 04:57 PM [place]-TOBACCO QUIT 15 YRS OR MORE [facility] Encounter Notes: All associated encounter notes This section contains the clinical notes associated to the Encounter. Date/Time Encounter Note(s) Provider Source Apr 19, 2024 01:55 PM OCCUPATIONAL THERA PY TREATMENT PLAN NOTE: LOCAL TITLE: OCCUPATIONAL THERAPY PROGRESS NOTE STANDARD TITLE: OCCUPATIONAL THERAPY TREATMENT PLAN NOTE DATE OF NOTE: APR 19, 2024@13:55 ENTRY DATE: APR 19, 2024@13:55:52 AUTHOR: DANDY DEAN COSIGNER: URGENCY: STATUS: COMPLETED Occupational Therapy Progress Note Initial Evaluation date: Dec Progress Note Date: Treatment #: 2 Treatment time: Diagnosis: Other Reduced Mobility(ICD-10-CM Z74.09) Provider: JEM Boo OCCUPATIONAL THERAPY MANUAL W/C FITTING/ISSUE NOTE S/ Pt with diagnosis of reduced mobility was seen on 01/08/24 to order manual w/c. Pt seen today for fit and training in use of areas marked below. Type of chair being issued: Q2 (22x20), J3 PA back Serial #: [id number] Cushion: Union O/ Pt seen in wheelchair today. Noted that applewood insert was sitting on the chair, not in the cushion cover. Also back rest angled. Barriers to learning wheelchair skills: No [x] Yes [ ] WHEELCHAIR MANAGEMENT TRAINING ( ) Transfers: independent Wheelchair Adjustments: 1. inserted applewood insert and secured cushion to the seat with Velcro 2. straightened back angle and increased seat depth by adjusting back angle as well 3. adjusted lower leg length for foot rest Educated in wheelchair operation: 1. Removable parts: wheel locks [x] armrests [x] leg rests[x] Mobility Check: propels wheelchair with: BL UE's Demonstrated safe independent use of manual w/c for: level surfaces Yes [x] No [ ] n/t [ ] ability to lock brakes: Yes [x] No [ ] n/t [ ] ability to lift chair: Yes [ ] No [ ] n/t [x] caregiver ability to lift chair: Yes [ ] No [ ] n/t [x] Pt stated satisfied with wheelchair: Yes [x] No [ ] A/ Pt issued Q2 manual wheelchair. Demonstrated good safety with operation, and mobility of device. Reviewed repair process and provided with direct number to OT/PT. No further questions/concerns at this time. P/ Crowder seen for w/c fitting this date with no concerns at this time. Has department contact information should he have any further questions/concerns. /keyanna/ DANDY DEAN OTR/L OCCUPATIONAL THERAPIST Signed: 04/21/2024 08:52 DANDY DEAN CNTRL [facility]
--- OUTSIDE RECORDS SUMMARY | 2025-03-04 01:30 | XMS_ITS | Continuity of Care Document ---
Author Name [facility] Organization [facility] Care Team Providers Care Electric Gas Appliances Demonstrator Name Role Phone [facility] Unavailable Unavailable Problems Combined list of problems [...] BY MOUTH ORAL ACTIVE DANIKA BOO 2022 [facility] [place] [facility] DOXYCYCLINE HYCLATE 100MG TAB TAKE ONE TABLET BY MOUTH TWICE DAILY ORAL ACTIVE DANIKA BOO 2022 [facility] [place] [facility] GABAPENTIN 100MG CAP TAKE 1 CAPSULE BY MOUTH TWICE DAILY ORAL ACTIVE DANIKA BOO 2022 [facility] METOPROLOL SUCCINATE 50MG TAB,SA TAKE THREE TABLETS BY MOUTH ONCE DAILY ORAL ACTIVE BOODANIKA Candelario 2022 [facility] SIMVASTATIN 40MG TAB TAKE ONE-HALF TABLET BY MOUTH AT BEDTIME ORAL ACTIVE BOODANIKA Candelario 2022 [facility] WARFARIN (NON-VA) TAB TAKE BY MOUTH ORAL ACTIVE DANIKA BOO 2022 [facility] Immunizations Combined list of available immunizations from the Department of Defense and Veterans [facility] facilities. Immunization Series Date Given Administered By Site Reaction Lot Number CVX Code Drug Vp Status Comments Source COVID-19 ([employer]), MRNA, LNP-S, PF, 30 MCG/0.3 ML DOSE 2021 208 complet ed Booster for Series, HISTORICA L INFORMATI ON - FROM OTHER PROVIDER, Lot#: [id number] [facility] COVID-19 ([employer]), MRNA, LNP-S, PF, 30 MCG/0.3 ML DOSE 2 2020 208 complet ed HISTORICA L INFORMATI ON - FROM OTHER REGISTRY, JL Mfr: [employer], [employer] [facility] [place] [facility] COVID-19 ([employer]), MRNA, LNP-S, PF, 30 MCG/0.3 ML DOSE 1 2020 208 complet ed HISTORICA L INFORMATI ON - FROM OTHER REGISTRY, JL Mfr: [employer], INC [facility] Encounters Combined list of: 1) Encounters from Department of Veterans Affairs facilities going backup to the last 18 months, not all [place] inpatient encounters are included; 2) Encounters from the Department of [facility] facilities going backup to 280 months. Location Location Details Encounter Type Encounter Number Reason For Visit Attending Provider ADM Date DC Date Status Disposition Source [facility] [place] [facility] Outpatient Encounter [id number] 09/23 [facility] Outpatient Encounter [id number] Niurka ZHOU 09/29 [facility] WHEELCHAIR MNGMENT TRAINING [id number] Diagnos is: ICD-10- CM Z74.09 Other reduced mobilit y TEDDY DEAN ICA L 01/07 [facility] [place] En[facility] [id number] Stephane BOO 02/01 [facility] [place] Encounter [id number] [facility] [place] WHEELCHAIR MNGMENT TRAINING [id number] 1. Diagnos is: ICD-10- CM Z74.09 Other reduced mobilit y TEDDY DEAN ICA L 04/19 [facility] [place] WHEELCHAIR MNGMENT TRAINING [id number] Diagnos is: ICD-10- CM Z74.09 Other reduced mobilit y GIBRAN DEANSS ICA L 05/17 [facility] [place] WHEELCHAIR MNGMENT TRAINING [id number] Diagnos is: ICD-10- CM Z74.09 Other reduced mobilit y DEANTEDDY KAPADIA ICA L 10/19 [facility] En[facility] [id number] 01/26 [facility] [place] WHEELCHAIR MNGMENT TRAINING [id number] Diagnos is: ICD-10- CM Z74.09 Other reduced mobilit y DEAN,TEDDY ICA L 02/22 [facility] [place] [facility] [facility] Social History Combined list of available smoking, tobacco, and other social history from Department of Defense and Veterans Affairs facilities. Social History Type Response Date Comment Sour e Tobacco smoking status NHIS VA-TOBACCO FORMER USER 05/21/2023 [place] [facility] [place] [facility] History of tobacco use VA-TOBACCO QUIT 15 YRS OR MORE 05/21/2023 [facility]
--- OUTSIDE RECORDS SUMMARY | 2025-03-16 06:51 | XMS_ITS | Clinical Summary ---
Author Organization [facility] Address [address] [place] [address] Phone Care Team Providers Care Rn Delivery Name Role Phone Vladimir Keys MD Primary Care Provider [phone] Allergies No known active allergies Medications acetaminophen [...] (09/18/2021): Added automatically from request for surgery [id number] Immunizations Immunization Administration Dates Next Due Influenza, [...] EDT Unless otherwise specified, test(s) performed at: [facility] [address] NURSING MANAGER: Chris Gomez M.D. For any questions, please call customer service at FREQUENCY:MONTHLY Resulting Agency Comment Specimen source: Blood Brian Saldaña MD LAB BLOOD BANK TEST ORDERABLES F inal Result APS EBONIE PVNMA from Last 3 Months or Most Recently Relevant to Health Maintenance Insurance Medicare [facility] Medicare [facility] Care Teams Rn Delivery Relationship Specialty Start Date End Date Vladimir Keys MD [address] [place] [address], [address] [place], [place] PCP - General 07/24/20
--- OUTSIDE RECORDS SUMMARY | 2025-03-16 06:51 | XMS_ITS | Encounter Summary ---
Author Organization [facility] Address [address] [place] [address] [place] [address] Phone Care Team Providers Care Market Asset Protection Manager Name Role Phone Ila Holguin MD Primary Care Provider [phone] Encounter Details Date Type Department Care Team (Late st Contact Info) Description 05/10/2022 Procedure Pass [facility] Ct Scan - [facility] [address] [place] [address] Social History Tobacco Use Types Packs/Day Years [...] 4:06 PM EDT Adilson Castillo, FACUNDO * [place] Suicide Severity Rating Scale (Screener/Recent Self-Report) Question [...] documented as of this encounter Care Teams Market Asset Protection Manager Relationship Specialty Start Date End Date Ila Holguin MD [address] [place] [address] [email or web address] PCP - General Internal Medicine 05/10/22 documented as of this encounter Additional Source Comments The information contained in this document represents components of the legal health record. It is not the complete legal health record.[facility]
--- OUTSIDE RECORDS SUMMARY | 2025-03-16 06:51 | XMS_ITS | Clinical Summary ---
Author Organization [facility] Address [address] [place] [address] [place] [phone] Phone Care Team Providers Care Business Information Consultant Name Role Phone Ila Holguin MD Primary Care Provider [phone] Allergies No known active allergies Medications allopurinol (ZYLOPRIM) 300 MG tablet Take 300 mg by mouth daily. Active doxycycline hyclate (VIBRAMYCIN) 100 MG capsule Take 100 mg by mouth 2 (two) times a day. Active gabapentin (NEURONTIN) 100 MG capsule Take 100 mg by mouth 2 (two) times a day. Active metoprolol succinate (TOPROL-XL) 50 MG 24 hr tablet Take 150 mg by mouth daily. Active pantoprazole (PROTONIX) 40 MG tablet Take 40 mg by mouth daily. Active simvastatin (ZOCOR) 20 MG tablet Take 20 mg by mouth nightly at bedtime. Active multivitamins-m inerals-folic lvww-xfwllsr-ul tein (COMPLETE SENIOR) 0.4 mg-300 mcg- 250 mcg Tab Take 1 tablet by mouth daily. Active warfarin (COUMADIN) 7.5 MG tablet Take 1 tablet (7.5 mg total) by mouth Every Afternoon. 05/24/2022 Active cefuroxime (CEFTIN) 250 MG tablet Take 1 tablet (250 mg total) by mouth every 12 (twelve) hours. 05/23/2022 Active Active Problems Problem Noted Date Diagnosed Date Hypomagnesemia 05/19/2022 Assessment & Plan (05/21/2022 6:31 PM EST): Mag 1.3 at presentation. Normal 05/21, tolerating po. Complicated UTI (urinary tract infection) 2021 Assessment & Plan (05/22/2022 4:58 PM EST): Presents from [facility] after having had urinary frequency, suprapubic pain, and fatigue, increased confusion, febrile to 101F there, decreased blood pressure, with urinalysis consistent with UTI. Received 1 dose of ciprofloxacin at 8 PM at 05/18/2022. UC from [facility], Ecoli. Similar on culture taken on admit, BC all negative. Some resistance, but susceptible to rocephin. Same for today. Need to keep kidney function in mind when choosing to deescalate. ? To be answered is if this is acute cystitis or more complicated UTI, as he has had multiple. Requested the last 4 discharge summaries from [facility]. His daughter has a huge amount of records to when she is going to go looking for the discharge summaries. We could do a CT of the abdomen and pelvis but I really want to be cautious as his renal function just recently recovered. We already know the answer to this question as he follows with Dr. Crane from urology as outpt, need the testing anyway. I will request urology consultation for Friday. According to the patient's daughter he was supposed to have procedure in the office to relieve chronic phimosis, since he is essentially been hospitalized or in a assisted facility since August it has not happened. She was wondering if we can have that done while here if it is something that is predisposing him to UTI Urine culture demonstrating [id number] colonies E. coli, resistant to amp, amp sulbactam -- On ceftriaxone, de-escalate to Ceftin -- Urology consult requested Acute kidney injury 05/11/2022 Assessment & Plan (05/22/2022 4:54 PM EST): Patient has had recent ESRD with hemodialysis treatments X8, at discharge to [facility] previously was at creatinine of 1.7 presents now with creatinine of 2.4 in setting of likely dehydration and complicated UTI. CRE is trending down with IVF and tx of UTI. If this trend continues, no need for imaging. Renal function improving with creatinine today 1.8 --Continue daily labs Assessment & Plan (05/11/2022 4:12 PM EDT): Recent KHADRA requiring hemodialysis during [facility] hospitalization. Per daughter, received 6 treatments. -- Creatinine has hovered between 1.7 and 2.0. He is making urine. We will continue to monitor Altered mental status, unspe cified altered mental status type 05/10/2022 Assessment & Plan (05/22/2022 4:55 PM EST): Presented with confusion. Has had long history of frequent and prolonged courses of delirium and medical settings. Generally, seems to be improving -Delirium precautions (encourage sleep-wake cycle, avoid deliriogenic medications, reposition and out of bed as tolerated) Assessment & Plan (05/11/2022 4:10 PM EDT): This appears very consistent with chronic delerium as well documented in notes from [facility] where this was ongoing and not changed. He was sent in as he was new at the facility and they were concerned with the level of responsivness, however it seems he does wax and wane. Mental status much improved today. Per daughter the best it has been. Head CT in the ED unremarkable. Evaluation at this point does not demonstrate any other new findings except for mild hypercalcemia Suspect protracted delirium with waxing/waning mental status -- Continue supportive care with close monitoring of neurologic status, encouragement of sleep/wake cycles and daytime mobilization Anticoagulated 05/10/2022 Assessment & Plan (05/22/2022 4:56 PM EST): Daughter noted prior regimen (before his illness) was 5 mg 3 days a week, and 10 mg the other days At presentation, INR 4.7. Held dose 05/19, and 05/20. INR today 2.7 Restarted his standard dosing. Has TAVR, hx of atrial appendage thrombus -- Continue warfarin as scheduled Assessment & Plan (05/11/2022 4:10 PM EDT): INR therapeutic -- Continue warfarin as scheduled History of endocarditis 05/10/2022 Assessment & Plan (05/19/2022 1:14 PM EST): Continue prophylactic doxycycline twice daily Assessment & Plan (05/10/2022 10:57 PM EDT): Of his bioprosthetic valve Lifelong doxycycline twice daily will be continued Bacteremia due to Staphylococcus epidermidis Assessment & Plan (05/11/2022 4:10 PM EDT): On presentation 04/22 at [facility] Completed daptomycin on 05/10 --Due for blood cultures on 05/16 Type 2 diabetes mellitus 05/10/2022 Assessment & Plan (05/21/2022 6:35 PM EST): Patient is not on any antidiabetic medications at present. A1c 5.4. Glucoses fine, stop finger sticks and slide -Consistent carbohydrate diet Assessment & Plan (05/11/2022 4:11 PM EDT): Blood sugar levels hovering around the 100 Continue SSI Pressure injury of skin and subcutaneous tissue, stage 3 05/10/2022 Assessment & Plan (05/20/2022 2:09 PM EST): Pressure injuries of left lateral buttock/hip, right heel Unstageable deep tissue injury of right plantar foot Apperciate Shasha Jo' assessment and plan for multiple skin issues. Assessment & Plan (05/11/2022 4:11 PM EDT): Multiple area of skin break down of different stages Buttocks left and right full skin thickness with weeping and oozing Per [facility] notes: Recommend Aquacel Ag covered by none Mepilex pads and secured Right heel extensive breakdown --He needs frequent turning and offloading. They have an air mattress at the rehab facility -- Continue wound care as scheduled Social History Tobacco Use Types Packs/Day Years Used Date Smoking Tobacco: Never Smokeless Tobacco: Never Tobacco Cessation:Counseling Given: Not Answered Alcohol Use Standard Drinks/Week Comments Not Currently 0 (1 standard drink = 0.6 oz pur e alcohol) Education Answer Date Recorded Are you interested in more education? Not on timothy e 11/09/2022 Are you concerned about learning? Not on file 11/09/2022 No 11/09/2022 No 11/09/2022 Digital Access Answer Date Recorded No 12/08/2022 No 12/08/2022 No 12/08/2022 Reliable internet access at home? Not on file 12/08/2022 Device with a working camera? Not on file Sex and Gender Information Value Date Recorded Sex Assigned at Not on file Legal Sex Male 8:32 AM EDT Gender Identity Not on file Sexual Orientation Not on file Last Filed Vital Signs Vital Sign Reading Time Taken Comments Blood Pressure 128/75 05/23/2022 3:43 PM EST Pulse 85 05/23/2022 3:43 PM EST Temperature 35.8 C (96.4 F) 05/23/2022 3:43 PM EST Respiratory Rate 18 05/23/2022 3:43 PM EST Oxygen Saturation 99% 05/23/2022 3:43 PM EST Inhaled Oxygen Concentration - - Weight 113.5 kg (250 lb 3.6 oz) 05/23/2022 6:24 AM EST Height 175.3 cm (5' 9 ) 05/20/2022 7:00 AM EST Body Mass Index 36.95 05/20/2022 7:00 AM EST Plan of Treatment Health Maintenance Due Date Last Done Comments Adult Td,Tdap Booster 1945 BLOOD PRESSURE 1943 DEPRESSION SCREENING 1955 PNEUMOCOCCAL VACCINES (50+ years) (1 of 2 - PCV) 1962 ZOSTER VACCINES (1 of 2) 1993 RSV VACCINE (1 - 1-dose 75+ series) 2018 DIABETIC EYE EXAM 05/10/2022 URINE MICROALBUMIN/CREATININE RATIO 05/10/2022 HEMOGLOBIN A1C 11/17/2022 05/20/2022 CREATININE LEVEL 06/27/2023 06/27/2022, 11/2021, 06/15/2022, Additional history exists COVID-19 VACCINE ( season) 2024 09/27/2021, 09/27/2021, 11/21/2020, Additional history exists HEPATITIS A VACCINES Aged Out No long er eligible based on patient's age to complete this topic HIB VACCINES Aged Out No longer eligi ble based on patient's age to complete this topic MENINGOCOCCAL VACCINES (ACWY) Aged Out No longer eligible based on patient's age to complete this topic MENINGOCOCCAL VACCINES (B) Aged Out N o longer eligible based on patient's age to complete this topic Medical Devices Not on file Procedures Procedure Name Priority Date/Time Associated Diagnosis Comments BASIC METABOLIC PANEL Routine 06/27/2022 5:45 AM EST Atherosclerosis of yocha dehe coronary artery without angina pectoris, unspecified whether yocha dehe or transplanted heart 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 HEMOGLOBIN A1C Routine 05/20/2022 6:27 AM EST from Last 3 Months or Most Recently Relevant to Health Maintenance Results * (ABNORMAL) Basic metabolic panel (06/27/2022 5:45 AM EST) SODIUM 136 133 - 146 mmol/L [facility] CHLORIDE 104 96 - 108 mmol/L [facility] POTASSIUM 4.8 3.3 - 5.1 mmol/L [facility] CO2 23 21 - 35 mmol/L [facility] BUN 58(H) 6 - 19 mg/dL [facility] CREATININE 2.20(H) 0.5 - 1.5 mg/dL [facility] GLUCOSE 99 70 - 99 mg/dL [facility] CALCIUM 12.3(H) 8.4 - 10.3 mg/dL [facility] EGFR 30(L) >59 mL/min/1.7 3m2 [facility] Comment:Estimated glomerular filtration rate calculated using the CKD-EPI refit equation. ANION GAP 14 10 - 20 mmol/L [facility] Blood 06/27/2022 5:45 AM EST 06/27/2022 8:59 AM EST us Ila Holguin MD LAB BLOOD ORDERABLES Final Res ult [facility] [address] [place] [address] * Hemoglobin A1c (05/20/2022 6:27 AM EST) HEMOGLOBIN A1C 5.4 4.3 - 5.8 % [facility] Blood 05/20/2022 6:27 AM EST 05/20/2022 6:44 AM EST us Joseph Christie PROCESSING MGR LAB BLOOD ORDERABLES Fi nal Result [facility] [address] [place] [address] from Last 3 Months or Most Recently Relevant to Health Maintenance Insurance MEDICARE PART A & B [facility] MEDICARE SUPPLEMENT MEDICARE PART A & B Member Subscriber Plan / Payer (Ef fective 2008-Present) Name:Gume Kearns Member ID:[id number] Relation to Subscriber:Self Name:Gume Kearns Subscriber ID:[id number] Payer ID:[id number] Group ID:Not on file Type:Medicare Address: [employer] [address] MEDICARE SUPPLEMENT MEDICARE PART A & B Member Subscriber Plan / Payer (Ef fective 2008-Present) Name:Gume Kearns Member ID:[id number] Relation to Subscriber:Self Name:Gume Kearns Subscriber ID:[id number] Payer ID:[id number] Group ID:Not on file Type:Medicare Address: [employer] [address] MEDICARE SUPPLEMENT MEDICARE PART A & B [facility] MEDICARE SUPPLEMENT MEDICARE PART A & B [facility] MEDICARE SUPPLEMENT MEDICARE PART A & B MEDICARE SUPPLEMENT MEDICARE PART A & B MEDICARE SUPPLEMENT MEDICARE PART A & B [facility] MEDICARE SUPPLEMENT MEDICARE PART A & B [facility] MEDICARE SUPPLEMENT Advance Directives For more information, please contact: [phone] (9AM - 5PM [facility], Friday-Friday) Documents on File Type Date Recorded Patient Assistant Public Defender Expl anation MOLST 05/24/2022 1:55 PM Healthcare Proxy 05/14/2022 1:26 PM MOLST 05/12/2022 11:37 AM MOLST DO S 05/10/22 Healthcare Proxy 05/12/2022 11:36 AM ANNY ONTIVEROS HCP 04/25/22 * DNR/DNI (No CPR/No Intubation) (Latest Code Status on File) Date Activated Date Inactivated Comments 05/19/2022 12:50 PM Question Answer Comments Code Status Confirmed With: PatientFamily * DNR/DNI (No CPR/No Intubation) Date Activated Date Inactivated Comments 05/11/2022 12:49 AM 05/19/2022 12:50 PM Question Answer Comments Code Status Confirmed With: Family Healthcare Agents on File Name Relationship Healthcare Agent Relationshi p Communication Yulisa Hollis Daughter .Primary Health Care Agent (Proxy form on file) Care Teams Business Information Consultant Relationship Specialty Start Date End Date Ila Holguin MD [address] [place] [phone] PCP - General Internal Medicine 05/10/22 Additional Source Comments The information contained in this document represents components of the legal health record. It is not the complete legal health record.[facility]
--- OUTSIDE RECORDS SUMMARY | 2025-03-16 06:51 | XMS_ITS | Encounter Summary ---
Author Organization [facility] Address [address] [place] [phone] Phone Care Team Providers Care Perfect Binder Feeder Offbearer Name Role Phone Ila Holguin MD Primary Care Provider [phone] Encounter Details Date Type Department Care Team (Latest Contact Info) Description 06/17/2022 Transcribe Orders [facility] Specimen Processing [address] [place] [address] Ila Holguin MD [address] [place] [address] [email or web address] Atrial fibrillation, unspecified type (Primary Dx) Social History Tobacco Use Types Packs/Day Years Used Date Smoking Tobacco: Never Smokeless Tobacco: Never Alcohol Use Standard Drinks/Week Comments Not Currently 0 (1 standard drink = 0.6 oz pur e alcohol) Sex and Gender Information Value Date Recorded Sex Assigned at Not on file Legal Sex Male 8:32 AM EDT Gender Identity Not on file Sexual Orientation Not on file documented as of this encounter Plan of Treatment Not on file documented as of this encounter Results * (ABNORMAL) PT-INR (06/17/2022 6:35 AM EST) PT 21.5(H) 10.2 - 12.9 sec [facility] INR 1.9(H) 0.9 - 1.1 [facility] Comment:Therapeutic range fo r oral Vitamin K antagonists: 2.0-3.5 06/17/2022 6:35 AM EST 06/17/2022 8:33 AM EST Ila Holguin MD LAB BLOOD ORDERABLES Final Res ult Performing Organization Address City/[facility] Co de Phone Number [address] [address] * (ABNORMAL) CBC (06/17/2022 6:35 AM EST) WBC 6.62 4.00 - 11.00 K/uL [facility] RBC 2.83(L) 3.90 - 5.69 M/uL [facility] HGB 8.3(L) 12.4 - 17.3 g/dL [facility] Comment:Called to Purnima Corley and read back HCT 25.8(L) 37.0 - 51.0 % [facility] PLT 242 140 - 430 K/uL [facility] MCV 91.2 78.0 - 97.0 fL [facility] MCH 29.3 25.0 - 33.0 pg [facility] MCHC 32.2 32.0 - 36.0 g/dL [facility] RDW 19.0(H) 11.0 - 15.0 % [facility] MPV 10.5 8.4 - 12.8 fl [facility] 06/17/2022 6:35 AM EST 06/17/2022 8:33 AM EST Ila Holguin MD LAB BLOOD ORDERABLES Final Res ult Performing Organization Address City/[facility]/ZIP Co de Phone Number [address] [address] * (ABNORMAL) Comprehensive metabolic panel (06/17/2022 6:35 AM EST) SODIUM 139 133 - 146 mmol/L [facility] POTASSIUM 4.7 3.3 - 5.1 mmol/L [facility] CHLORIDE 107 96 - 108 mmol/L [facility] CO2 23 21 - 35 mmol/L [facility] BUN 45(H) 6 - 19 mg/dL [facility] CREATININE 2.20(H) 0.5 - 1.5 mg/dL [facility] GLUCOSE 94 70 - 99 mg/dL [facility] ALBUMIN 2.8(L) 3.9 - 4.8 g/dL [facility] TOTAL PROTEIN 6.1(L) 6.5 - 8.0 g/dL [facility] CALCIUM 11.8(H) 8.4 - 10.3 mg/dL [facility] ALKALINE PHOSPHATASE 94 39 - 117 U/L [facility] TOTAL BILIRUBIN 0.3 0.0 - 1.2 mg/dL [facility] AST 14 0 - 37 U/L [facility] ALT 7 0 - 40 U/L [facility] GLOBULIN 3.3 1 - 4.8 g/dL [facility] EGFR 30(L) >59 mL/min/1.7 3m2 [facility] Comment:Estimated glomerular filtration rate calculated using the CKD-EPI refit equation. ANION GAP 14 10 - 20 mmol/L [facility] 06/17/2022 6:35 AM EST 06/17/2022 8:33 AM EST Ila Holguin MD LAB BLOOD ORDERABLES Final Res ult [facility] [address] [place] [address] documented in this encounter Visit Diagnoses Diagnosis Atrial fibrillation, unspecified type- Primary documented in this encounter Care Teams Perfect Binder Feeder Offbearer Relationship Specialty Start Date End Date Ila Holguin MD [address] [place] [phone] PCP - General Internal Medicine 05/10/22 documented as of this encounter Additional Source Comments The information contained in this document represents components of the legal health record. It is not the complete legal health record.[facility]
--- OUTSIDE RECORDS SUMMARY | 2025-03-16 06:51 | XMS_ITS | Clinical Summary ---
Author Organization [facility] it Address [address] [place] [address] Care Team Providers Care Cello Teacher Name Role Phone Unavailable Primary Care Provider [...] 06/16/2022 Social Influencers of Health Screening 06/16/2022 Depression Screening 07/14/2024 COVID-19 Vaccine (1 - 2023-2 5 season) 2025 Influenza Vaccine (#1) 2025 HIB Vaccines Aged [...]
[2025-03-16 08:14] LABS: Alanine Aminotransferase 11 U/L (0-40); Albumin Level 3.3 g/dL (3.5-5.0); Alkaline Phosphatase 98 U/L (39-117); Anion Gap 13 (12-20); Aspartate Amino Transferase 28 U/L (5-37); Blood Urea Nitrogen 74 mg/dL (9-16); Calcium 9.7 mg/dL (8.4-10.2); Carbon Dioxide 21 mmol/L (22-29); Chloride 104 mmol/L (96-108); Estimated Glomerular Filt Rate 22; Potassium 4.3 mmol/L (3.3-5.1); Sodium 134 mmol/L (135-145); Total Protein 6.7 g/dL (6.5-8.0)
== END 2025-03-16 06:49 | disposition home or self-care (01) ==
LOC: HO.HSH2E 06:48
PROVIDERS: Visit Provider Internal Medicine Endocrinology, Diabetes & Metabolism
DX: M19.90 Unspecified osteoarthritis, unspecified site (principal)
CPT/HCPCS: 36415; 80053

== ENCOUNTER 2025-03-21 06:39 | Outpatient (REF) | payer MEDICARE, SELFPAY ==
--- OUTSIDE RECORDS SUMMARY | 2025-03-21 06:43 | XMS_ITS | Clinical Summary ---
Author Organization [facility] Address [address] [place] [address] [place] [address] Phone Care Team Providers Care Loss Prevention Associate Name Role Phone Ila Holguin MD Primary Care Provider [phone] Allergies No known active allergies Medications allopurinol [...] mouth nightly at bedtime. Active multivitamins-m inerals-folic zeru-cxtfecg-mw tein (COMPLETE SENIOR) 0.4 mg-300 mcg- 250 [...] Plan (05/22/2022 4:58 PM EST): Presents from [facility] after having had urinary frequency, suprapubic pain, and fatigue, increased confusion, febrile to 101F there, decreased blood pressure, with urinalysis consistent with UTI. Received 1 dose of ciprofloxacin at 8 PM at 05/18/2022. UC from [facility], Ecoli. Similar on culture taken on admit, BC all negative. Some resistance, but susceptible to rocephin. Same for today. Need to keep kidney function in mind when choosing to deescalate. ? To be answered is if this is acute cystitis or more complicated UTI, as he has had multiple. Requested the last 4 discharge summaries from [facility]. His daughter has a huge amount of [...] is essentially been hospitalized or in a [place] [facility] [place] facility since August it has not happened. She was wondering if we can have that done while here if it is something that is predisposing him to UTI Urine culture demonstrating [id number] colonies E. coli, resistant to amp, amp sulbactam -- On ceftriaxone, de-escalate to Ceftin -- Urology consult requested Acute kidney injury 05/11/2022 Assessment & Plan (05/22/2022 4:54 PM EST): Patient has had recent ESRD with hemodialysis treatments X8, at discharge to [facility] previously was at creatinine of 1.7 presents now with creatinine of 2.4 in setting of likely dehydration and complicated UTI. CRE is trending down with IVF and tx of UTI. If this trend continues, no need for imaging. Renal function improving with creatinine today 1.8 --Continue daily labs Assessment & Plan (05/11/2022 4:12 PM EDT): Recent KHADRA requiring hemodialysis during [facility] hospitalization. Per daughter, received 6 treatments. -- [...] delerium as well documented in notes from [facility] where this was ongoing and not changed. [...] 4:10 PM EDT): On presentation 04/22 at [facility] Completed daptomycin on 05/10 --Due for blood [...] skin thickness with weeping and oozing Per [facility] notes: Recommend Aquacel Ag covered by none [...] 06/27/2023 06/27/2022, 11/2021, 06/15/2022, Additional history exists INFLUENZA VACCINE (#1) 2025 , 03/05/2020, 03/14/2017, Additional history exists COVID-19 VACCINE ( season) 2025 09/27/2021, 09/27/2021, 11/21/2020, Additional history exists HEPATITIS [...] Routine 06/27/2022 5:45 AM EST Atherosclerosis of [place] coronary artery without angina pectoris, unspecified whether [place] or transplanted heart 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 HEMOGLOBIN A1C Routine 05/20/2022 6:27 AM EST from Last 3 Months or Most Recently Relevant to Health Maintenance Results * (ABNORMAL) Basic metabolic panel (06/27/2022 5:45 AM EST) SODIUM 136 133 - 146 mmol/L [facility] CHLORIDE 104 96 - 108 mmol/L [facility] POTASSIUM 4.8 3.3 - 5.1 mmol/L [facility] CO2 23 21 - 35 mmol/L [facility] BUN 58(H) 6 - 19 mg/dL [facility] CREATININE 2.20(H) 0.5 - 1.5 mg/dL [facility] GLUCOSE 99 70 - 99 mg/dL [facility] CALCIUM 12.3(H) 8.4 - 10.3 mg/dL [facility] EGFR 30(L) >59 mL/min/1.7 3m2 [facility] Comment:Estimated glomerular filtration rate calculated using the CKD-EPI refit equation. ANION GAP 14 10 - 20 mmol/L [facility] Blood 06/27/2022 5:45 AM EST 06/27/2022 8:59 AM EST us Ila Holguin MD LAB BLOOD ORDERABLES Final Res ult [facility] [address] [place] [address] * Hemoglobin A1c (05/20/2022 6:27 AM EST) HEMOGLOBIN A1C 5.4 4.3 - 5.8 % [facility] Blood 05/20/2022 6:27 AM EST 05/20/2022 6:44 AM EST us Joseph Christie PACKAGING MACHINE OPERATOR LAB BLOOD ORDERABLES Fi nal Result [facility] [address] [place] [address] from Last 3 Months or Most Recently Relevant to Health Maintenance Insurance MEDICARE PART A & B [facility] MEDICARE SUPPLEMENT MEDICARE PART A & B Member Subscriber Plan / Payer (Ef fective 2008-Present) Name:Gume Kearns Member ID:[id number] Relation to Subscriber:Self Name:Gume Kearns Subscriber ID:[id number] Payer ID:[id number] Group ID:Not on file Type:Medicare Address: [address] [address] MEDICARE SUPPLEMENT MEDICARE PART A & B Member Subscriber Plan / Payer ( fective 2008-Present) Name:Gume Kearns Member ID:[id number] Relation to Subscriber:Self Name:Gume Kearns Subscriber ID:[id number] Payer ID:[id number] Group ID:Not on file Type:Medicare Address: [address] [address] [place] [id number] [place] [address] MEDICARE SUPPLEMENT MEDICARE PART A & B Member Subscriber Plan / Payer (Ef fective 2008-Present) Name:Urmila Gume Member ID:[id number] Relation to Subscriber:Self Name:Gume Kearns Subscriber ID:[id number] Payer ID:[id number] Group ID:Not on file Type:Medicare Address: [place] [address] MEDICARE SUPPLEMENT MEDICARE PART A & B [facility] MEDICARE SUPPLEMENT MEDICARE PART A & B [facility] MEDICARE SUPPLEMENT MEDICARE PART A & B [facility] MEDICARE SUPPLEMENT MEDICARE PART A & B MEDICARE SUPPLEMENT MEDICARE PART A & B [facility] MEDICARE SUPPLEMENT Advance Directives For more information, please contact: [phone] (9AM - 5PM [facility], Friday-Friday) Documents on File Type Date Recorded Patient Prop Worker Expl anation MOLST 05/24/2022 1:55 PM Healthcare Proxy 05/14/2022 1:26 PM MOLST 05/12/2022 11:37 AM MICHELLEST DO S 05/10/22 Healthcare Proxy 05/12/2022 11:36 [...] Agents on File Name Relationship Healthcare Agent Relationsme p Communication Yulisa Hollis Daughter .Primary Health Care Agent (Proxy form on file) Care Teams Loss Prevention Associate Relationship Specialty Start Date End Date Ila Holguin MD [address] [place] [address] PCP - General Internal Medicine 05/10/22 Additional Source Comments The information contained in this document represents components of the legal health record. It is not the complete legal health record.[facility]
--- OUTSIDE RECORDS SUMMARY | 2025-03-21 06:43 | XMS_ITS | Encounter Summary ---
Author Organization [facility] Address [address] [place] [address] [place] [address] Phone Care Team Providers Care Senior Buyer Planner Name Role Phone Ila Holguin MD Primary Care Provider [phone] Encounter Details Date Type Department Care Team (Late st Contact Info) Description 05/10/2022 Procedure [facility], Ct Scan - [facility] [address] [place] [address] Social History Tobacco Use Types Packs/Day Years [...] 4:06 PM EDT Adilson Castillo, FACUNDO * [place] Suicide Severity Rating Scale (Screener/Recent Self-Report) Question [...] documented as of this encounter Care Teams Senior Buyer Planner Relationship Specialty Start Date End Date Ila Holguin MD [address] [place] [address] [email or web address] PCP - General Internal Medicine 05/10/22 documented as of this encounter Additional Source Comments The information contained in this document represents components of the legal health record. It is not the complete legal health record.[facility]
--- OUTSIDE RECORDS SUMMARY | 2025-03-21 06:43 | XMS_ITS | Encounter Summary ---
Author Organization [facility] Address [address] [place] [address] Phone Care Team Providers Care Clay Dry Press Helper Name Role Phone Ila Holguin MD Primary Care Provider [phone] Encounter Details Date Type Department Care Team (Latest Contact Info) Description 06/17/2022 Transcribe Orders [facility] Specimen Processing [address] [place] [address] Ila Holguin MD [address] [place] [address] [email or web address] Atrial fibrillation, unspecified type (Primary Dx) Social [...] EST) PT 21.5(H) 10.2 - 12.9 sec [facility] INR 1.9(H) 0.9 - 1.1 [facility] Comment:Therapeutic range fo r oral Vitamin K antagonists: 2.0-3.5 06/17/2022 6:35 AM EST 06/17/2022 8:33 AM EST Ila Holguin MD LAB BLOOD ORDERABLES Final Res ult Performing Organization Address City/[facility] Co de Phone Number [address] [address] * (ABNORMAL) CBC (06/17/2022 6:35 AM EST) WBC 6.62 4.00 - 11.00 K/uL [facility] RBC 2.83(L) 3.90 - 5.69 M/uL [facility] HGB 8.3(L) 12.4 - 17.3 g/dL [facility] Comment:Called to Purnima Corley and read back HCT 25.8(L) 37.0 - 51.0 % [facility] PLT 242 140 - 430 K/uL [facility] MCV 91.2 78.0 - 97.0 fL [facility] MCH 29.3 25.0 - 33.0 pg [facility] MCHC 32.2 32.0 - 36.0 g/dL [facility] RDW 19.0(H) 11.0 - 15.0 % [facility] MPV 10.5 8.4 - 12.8 fl [facility] 06/17/2022 6:35 AM EST 06/17/2022 8:33 AM EST Ila Holguin MD LAB BLOOD ORDERABLES Final Res ult Performing Organization Address City/[facility]/ZIP Co de Phone Number [address] [address] * (ABNORMAL) Comprehensive metabolic panel (06/17/2022 6:35 AM EST) SODIUM 139 133 - 146 mmol/L [facility] POTASSIUM 4.7 3.3 - 5.1 mmol/L [facility] CHLORIDE 107 96 - 108 mmol/L [facility] CO2 23 21 - 35 mmol/L [facility] BUN 45(H) 6 - 19 mg/dL [facility] CREATININE 2.20(H) 0.5 - 1.5 mg/dL [facility] GLUCOSE 94 70 - 99 mg/dL [facility] ALBUMIN 2.8(L) 3.9 - 4.8 g/dL [facility] TOTAL PROTEIN 6.1(L) 6.5 - 8.0 g/dL [facility] CALCIUM 11.8(H) 8.4 - 10.3 mg/dL [facility] ALKALINE PHOSPHATASE 94 39 - 117 U/L [facility] TOTAL BILIRUBIN 0.3 0.0 - 1.2 mg/dL [facility] AST 14 0 - 37 U/L [facility] ALT 7 0 - 40 U/L [facility] GLOBULIN 3.3 1 - 4.8 g/dL [facility] EGFR 30(L) >59 mL/min/1.7 3m2 [facility] Comment:Estimated glomerular filtration rate calculated using the CKD-EPI refit equation. ANION GAP 14 10 - 20 mmol/L [facility] 06/17/2022 6:35 AM EST 06/17/2022 8:33 AM EST Ila Holguin MD LAB BLOOD ORDERABLES Final Res ult [facility] [address] [place] [address] documented in this encounter Visit Diagnoses Diagnosis Atrial fibrillation, unspecified type- Primary documented in this encounter Care Teams Clay Dry Press Helper Relationship Specialty Start Date End Date Ila Holguin MD [address] [place] [address] PCP - General Internal Medicine 05/10/22 documented as of this encounter Additional Source Comments The information contained in this document represents components of the legal health record. It is not the complete legal health record.[facility]
--- OUTSIDE RECORDS SUMMARY | 2025-03-21 06:43 | XMS_ITS | Clinical Summary ---
Author Organization [facility] it Address [address] [place] [address] Care Team Providers Care Reaming Machine Operator For Plastic Name Role Phone Unavailable Primary Care Provider [...]
--- OUTSIDE RECORDS SUMMARY | 2025-03-21 06:43 | XMS_ITS | Clinical Summary ---
Author Organization [facility] Address [address] [place] [address] Phone Care Team Providers Care Underwriting Account Representative Name Role Phone Vladimir Keys MD Primary Care Provider [phone] Allergies No known active allergies Medications acetaminophen [...] (09/18/2021): Added automatically from request for surgery [id number] Immunizations Immunization Administration Dates Next Due Influenza, [...] EDT Unless otherwise specified, test(s) performed at: [address] [address] LEADER TIER: Chris Gomez M.D. For any questions, please call customer service at FREQUENCY:MONTHLY Resulting Agency Comment Specimen source: Blood Brian Saldaña MD LAB BLOOD BANK TEST ORDERABLES F inal Result [facility] from Last 3 Months or Most Recently Relevant to Health Maintenance Insurance Medicare [facility] Medicare [facility] Care Teams Underwriting Account Representative Relationship Specialty Start Date End Date Vladimir Keys MD [address] [place] [place] [address], [address] [place], [place] PCP - General 07/24/20
[2025-03-21 07:54] LABS: INTERNATIONAL NORM RATIO 2.7 (0.9-1.1); Prothrombin Time 31.3 SEC (10.9-12.4)
== END 2025-03-21 06:40 | disposition home or self-care (01) ==
LOC: HO.HSH2E 06:39
PROVIDERS: Visit Provider Internal Medicine Endocrinology, Diabetes & Metabolism
DX: Z95.2 Presence of prosthetic heart valve (principal)
CPT/HCPCS: 36415; 85610

== ENCOUNTER 2025-03-25 06:20 | Outpatient (REF) | payer MEDICARE, SELFPAY ==
--- OUTSIDE RECORDS SUMMARY | 2025-03-25 06:25 | XMS_ITS | Encounter Summary ---
Author Organization [facility] Address [address] [place] [address] [place] [address] Phone Care Team Providers Care Doctor Of Dental Medicine Name Role Phone Ila Holguin MD Primary Care Provider [phone] Encounter Details Date Type Department Care Team (Late st Contact Info) Description 05/10/2022 Procedure Pass [facility], Ct Scan - [facility] [address] [place] [address] Social History Tobacco Use Types Packs/Day Years [...] 4:06 PM EDT Adilson Castillo, FACUNDO * [place] Suicide Severity Rating Scale (Screener/Recent Self-Report) Question [...] documented as of this encounter Care Teams Doctor Of Dental Medicine Relationship Specialty Start Date End Date Ila Holguin MD [address] [place] [address] [email or web address] PCP - General Internal Medicine 05/10/22 documented as of this encounter Additional Source Comments The information contained in this document represents components of the legal health record. It is not the complete legal health record.[facility]
--- OUTSIDE RECORDS SUMMARY | 2025-03-25 06:25 | XMS_ITS | Encounter Summary ---
Author Organization [facility] Address [address] [place] [address] Phone Care Team Providers Care Wet Process Assistant Head Miller Name Role Phone Ila Holguin MD Primary Care Provider [phone] Encounter Details Date Type Department Care Team (Latest Contact Info) Description 06/17/2022 Transcribe Orders [facility] Specimen Processing [address] [place] [address] Ila Holguin MD [address] [place] [address] [email or web address] Atrial fibrillation, unspecified type (Primary Dx) Social [...] EST) PT 21.5(H) 10.2 - 12.9 sec [facility] INR 1.9(H) 0.9 - 1.1 [facility] Comment:Therapeutic range fo r oral Vitamin K antagonists: 2.0-3.5 06/17/2022 6:35 AM EST 06/17/2022 8:33 AM EST lIa Holguin MD LAB BLOOD ORDERABLES Final Res ult Performing Organization Address City/[facility] Co de Phone Number [address] [address] * (ABNORMAL) CBC (06/17/2022 6:35 AM EST) WBC 6.62 4.00 - 11.00 K/uL [facility] RBC 2.83(L) 3.90 - 5.69 M/uL [facility] HGB 8.3(L) 12.4 - 17.3 g/dL [facility] Comment:Called to Purnima Corley and read back HCT 25.8(L) 37.0 - 51.0 % [facility] PLT 242 140 - 430 K/uL [facility] MCV 91.2 78.0 - 97.0 fL [facility] MCH 29.3 25.0 - 33.0 pg [facility] MCHC 32.2 32.0 - 36.0 g/dL [facility] RDW 19.0(H) 11.0 - 15.0 % [facility] MPV 10.5 8.4 - 12.8 fl [facility] 06/17/2022 6:35 AM EST 06/17/2022 8:33 AM EST Ila Holguin MD LAB BLOOD ORDERABLES Final Res ult Performing Organization Address City/[facility]/ZIP Co de Phone Number [address] [address] * (ABNORMAL) Comprehensive metabolic panel (06/17/2022 6:35 AM EST) SODIUM 139 133 - 146 mmol/L [facility] POTASSIUM 4.7 3.3 - 5.1 mmol/L [facility] CHLORIDE 107 96 - 108 mmol/L [facility] CO2 23 21 - 35 mmol/L [facility] BUN 45(H) 6 - 19 mg/dL [facility] CREATININE 2.20(H) 0.5 - 1.5 mg/dL [facility] GLUCOSE 94 70 - 99 mg/dL [facility] ALBUMIN 2.8(L) 3.9 - 4.8 g/dL [facility] TOTAL PROTEIN 6.1(L) 6.5 - 8.0 g/dL [facility] CALCIUM 11.8(H) 8.4 - 10.3 mg/dL [facility] ALKALINE PHOSPHATASE 94 39 - 117 U/L [facility] TOTAL BILIRUBIN 0.3 0.0 - 1.2 mg/dL [facility] AST 14 0 - 37 U/L [facility] ALT 7 0 - 40 U/L [facility] GLOBULIN 3.3 1 - 4.8 g/dL [facility] EGFR 30(L) >59 mL/min/1.7 3m2 [facility] Comment:Estimated glomerular filtration rate calculated using the CKD-EPI refit equation. ANION GAP 14 10 - 20 mmol/L [facility] 06/17/2022 6:35 AM EST 06/17/2022 8:33 AM EST Ila Holguin MD LAB BLOOD ORDERABLES Final Res ult [facility] [address] [place] [address] documented in this encounter Visit Diagnoses Diagnosis Atrial fibrillation, unspecified type- Primary documented in this encounter Care Teams Wet Process Assistant Head Miller Relationship Specialty Start Date End Date Ila Holguin MD [address] [place] [address] PCP - General Internal Medicine 05/10/22 documented as of this encounter Additional Source Comments The information contained in this document represents components of the legal health record. It is not the complete legal health record.[facility]
--- OUTSIDE RECORDS SUMMARY | 2025-03-25 06:25 | XMS_ITS | Clinical Summary ---
Author Organization [facility] Address [address] [place] [address] [place] [address] Phone Care Team Providers Care Crime Victim Specialist Name Role Phone Ila Holguin MD Primary Care Provider [phone] Allergies No known active allergies Medications allopurinol [...] mouth nightly at bedtime. Active multivitamins-m inerals-folic lzva-mrugftg-sn tein (COMPLETE SENIOR) 0.4 mg-300 mcg- 250 [...] Plan (05/22/2022 4:58 PM EST): Presents from [facility] after having had urinary frequency, suprapubic pain, and fatigue, increased confusion, febrile to 101F there, decreased blood pressure, with urinalysis consistent with UTI. Received 1 dose of ciprofloxacin at 8 PM at 05/18/2022. UC from [facility], Ecoli. Similar on culture taken on admit, BC all negative. Some resistance, but susceptible to rocephin. Same for today. Need to keep kidney function in mind when choosing to deescalate. ? To be answered is if this is acute cystitis or more complicated UTI, as he has had multiple. Requested the last 4 discharge summaries from [facility]. His daughter has a huge amount of [...] is essentially been hospitalized or in a [facility] facility since August it has not happened. She was wondering if we can have that done while here if it is something that is predisposing him to UTI Urine culture demonstrating [id number] colonies E. coli, resistant to amp, amp sulbactam -- On ceftriaxone, de-escalate to Ceftin -- Urology consult requested Acute kidney injury 05/11/2022 Assessment & Plan (05/22/2022 4:54 PM EST): Patient has had recent ESRD with hemodialysis treatments X8, at discharge to [facility] previously was at creatinine of 1.7 presents now with creatinine of 2.4 in setting of likely dehydration and complicated UTI. CRE is trending down with IVF and tx of UTI. If this trend continues, no need for imaging. Renal function improving with creatinine today 1.8 --Continue daily labs Assessment & Plan (05/11/2022 4:12 PM EDT): Recent KHADRA requiring hemodialysis during [facility] hospitalization. Per daughter, received 6 treatments. -- [...] delerium as well documented in notes from [facility] where this was ongoing and not changed. 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 HEMOGLOBIN A1C Routine 05/20/2022 6:27 AM EST from Last 3 Months or Most Recently Relevant to Health Maintenance Results * (ABNORMAL) Basic metabolic panel (06/27/2022 5:45 AM EST) SODIUM 136 133 - 146 mmol/L [facility] CHLORIDE 104 96 - 108 mmol/L [facility] POTASSIUM 4.8 3.3 - 5.1 mmol/L [facility] CO2 23 21 - 35 mmol/L [facility] BUN 58(H) 6 - 19 mg/dL [facility] CREATININE 2.20(H) 0.5 - 1.5 mg/dL [facility] GLUCOSE 99 70 - 99 mg/dL [facility] CALCIUM 12.3(H) 8.4 - 10.3 mg/dL [facility] EGFR 30(L) >59 mL/min/1.7 3m2 [facility] Comment:Estimated glomerular filtration rate calculated using the CKD-EPI refit equation. ANION GAP 14 10 - 20 mmol/L [facility] Blood 06/27/2022 5:45 AM EST 06/27/2022 8:59 AM EST us Ila Holguin MD LAB BLOOD ORDERABLES Final Res ult [facility] [address] [place] [address] * Hemoglobin A1c (05/20/2022 6:27 AM EST) HEMOGLOBIN A1C 5.4 4.3 - 5.8 % [facility] Blood 05/20/2022 6:27 AM EST 05/20/2022 6:44 AM EST us Joseph Christie APPLICATION CHEMIST LAB BLOOD ORDERABLES Fi nal Result [facility] [address] [place] [address] from Last 3 Months or Most Recently Relevant to Health Maintenance Insurance [place] [id number] [facility] MEDICARE SUPPLEMENT MEDICARE PART A & B [id number] [place] [address] MEDICARE SUPPLEMENT MEDICARE PART A & B [facility] MEDICARE SUPPLEMENT MEDICARE PART A & B MEDICARE SUPPLEMENT MEDICARE PART A & B [facility] MEDICARE SUPPLEMENT MEDICARE PART A & B [facility] MEDICARE SUPPLEMENT MEDICARE PART A & B [facility] MEDICARE SUPPLEMENT MEDICARE PART A & B [facility] MEDICARE SUPPLEMENT MEDICARE PART A & B [facility] MEDICARE SUPPLEMENT Advance Directives For more information, please contact: [phone] (9AM - 5PM [facility], Friday-Friday) Documents on File Type Date Recorded Patient Naval Designer Expl anation MOLST 05/24/2022 1:55 PM Healthcare Proxy 05/14/2022 1:26 PM [facility] 05/12/2022 11:37 AM MOLST DO S 05/10/22 Healthcare Proxy 05/12/2022 11:36 AM ANNY ONTIVEROS [facility] 04/25/22 * DNR/DNI (No CPR/No Intubation) (Latest Code Status on File) Date Activated Date Inactivated Comments 05/19/2022 12:50 PM Question Answer Comments Code Status Confirmed With: PatientFamily * DNR/DNI (No CPR/No Intubation) Date Activated Date Inactivated Comments 05/11/2022 12:49 AM 05/19/2022 12:50 PM Question Answer Comments Code Status Confirmed With: Family Healthcare Agents on File Name Relationship Healthcare Agent [facility] p Communication Yulisa Hollis Daughter .Primary Health Care Agent (Proxy form on file) Care Teams Crime Victim Specialist Relationship Specialty Start Date End Date Ila Holguin MD [address] [place] [address] [email or web address] PCP - General Internal Medicine 05/10/22 Additional Source Comments The information contained in this document represents components of the legal health record. It is not the complete legal health record.[facility]
--- OUTSIDE RECORDS SUMMARY | 2025-03-25 06:25 | XMS_ITS | Clinical Summary ---
Author Organization [facility] it Address [address] [place] [address] Care Team Providers Care Invasive Manager Name Role Phone Unavailable Primary Care [...]
--- OUTSIDE RECORDS SUMMARY | 2025-03-25 06:25 | XMS_ITS | Clinical Summary ---
Author Organization [facility] Address [address] [place] [address] Phone Care Team Providers Care Saxophone Teacher Name Role Phone Vladimir Keys MD Primary Care Provider [phone] Allergies No known active allergies Medications acetaminophen [...] (09/18/2021): Added automatically from request for surgery [id number] Immunizations Immunization Administration Dates Next Due Influenza, Unspecified 04/24/2021,2019,03/14/2017,03/31/2016, 5 Pfizer SARS-COV-2 11/21/2020,10/29/2020 Family History Medical History Relation Comments Diabetes Father Heart disease Father [place] Stroke Mother Relation Status Comments Father Mother [...] EDT Unless otherwise specified, test(s) performed at: [facility] [address] EVENT ATTENDANT: Chris Gomez M.D. For any questions, please call customer service at FREQUENCY:MONTHLY Resulting Agency Comment Specimen source: Blood Brian Saldaña MD LAB BLOOD BANK TEST ORDERABLES F inal Result APS EBONIE PVNMA from Last 3 Months or Most Recently Relevant to Health Maintenance Insurance Medicare [facility] Medicare [facility] Care Teams Saxophone Teacher Relationship Specialty Start Date End Date Vladimir Keys MD [address] [place] [address], [address] [place], [place] PCP - General 07/24/20
--- OUTSIDE RECORDS SUMMARY | 2025-03-25 06:25 | XMS_ITS ---
Author Name Shawanda Waters Address Unknown Organization [facility] Care Team Providers Care Flash Welder Name Role Phone Unavailable Primary Care Physician Unavailab le History Of Present Illness This is an 80 year old male who is a new patient who is being seen for a chief complaint of rash. Location: handsRash Type: flaking, red, and peeling, sensitive tenderDuration: 6 monthsCurrent Medications: otc lotionAdditional History: Patient reports history of gout x6 months, hands get very red, peeling, tender. Medications Medication Generic Name RxNorm Strength Strength Unit Route Dose Dose Form Frequency Date Started Date Ended Status Indication Sig polyvinyl alcohol polyviny l alcohol 1.4 % Ophtha lmic (eye) 1 drops BID active clotrimazol e-betametha sone 300098 1-0.05 % Topica l 1 cream as directed active methyl salicylate methyl salicyla te 10-15 % Topica l 1 cream PRN active mupirocin mupiroci n 427425 2 % Topica l ointm ent 03/23/20 25 active Appl y a thin laye r BID to the open woun d on the left inde x fing er for 10 days . Then swit ch to a thin laye r of vase line to prom ote woun d heal ing. nystatin 881846 100,000 unit/gram Topica l 1 powde r as directed active triamcinolo ne acetonide 3286678 0.1 % Topica l 1 cream BID active Procrit epoetin norman 2,000 unit/mL Inject ion 1 solut ion PRN active acetaminoph en acetamin ophen 325 mg Oral 2 table t QD active allopurinol 146153 100 mg Oral 2 tabl e t QD active amlodipine 961895 2.5 mg Oral 1 table t QD active amoxicillin 043951 500 mg Oral 4 caps u le PRN active cyanocobala min (vitamin B-12) cyanocob alamin (vitamin B-12) 500 mcg Oral 1 table t QD active doxycycline hyclate 5484465 100 mg Oral 1 table t BID active finasteride 339293 5 mg Oral 1 tabl e t QD active furosemide 597479 40 mg Oral 1 table t QD active gabapentin 680281 300 mg Oral 1 capsu le QD active Jantoven 890931 2.5 mg Oral 1 table t QD active metoprolol succinate 771992 50 mg Oral 1 Table t, Exten ded Relea se 24 hr 3x QD active metoprolol succinate metoprol ol succinat e 100 mg Oral 1 Table t, Exten ded Relea se 24 hr QD active simvastatin 497944 20 mg Oral 1 tabl e t QD active sulfamethox azole-trime thoprim 577087 800-160 mg Oral 1 table t QD active tramadol 805046 50 mg Oral 1 table t QD active Vitamin D3 cholecal ciferol (vitamin D3) 25 mcg (1,000 unit) Oral 1 capsu le QD active warfarin 323032 5 mg Oral 1 table t QD active bisacodyl bisacody l 10 mg Rectal 1 suppo sitor y PRN active Ammonium Lactate NULL 11/08/19 17 active Cephalexin NULL 11/08/19 17 active Furosemide NULL 11/08/19 17 active predniSONE NULL 11/08/19 17 active Simvastatin NULL 11/08/19 17 active Problems Problem Code Type Status Date of Diagnosis Date of Resolution Inflammatory dermatosis (disorder) 672150521(S NOMED) Diagnosis active 03/23/2025 Disorder of skin and/or subcutaneous tissue (disorder) 81510839(SN OMED) Diagnosis active 11/07/2016 Arthritis (disorder) 8155504(SNO MED) Problem active Atrial fibrillation (disorder) 17372508(SN OMED) Problem active Benign prostatic hyperplasia (disorder) 376665512(S NOMED) Problem active Diabetes mellitus (disorder) 97685403(SN OMED) Problem active Gout (disorder) 22780858(SN OMED) Problem active History of hypertension (situation) 804997775(S NOMED) Problem active Hyperlipidemia (disorder) 31392200(SN OMED) Problem active 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 Office phonenumber is [phone]. Office fax number is [phone]. 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) Total replacement of left knee joint (pr ocedure) Total replacement of right knee joint (p rocedure) Documentation of past medical history (p rocedure) Documentation of past medica l history (procedure) Left ankle plate surgery Total replacement of left knee joint (pr ocedure) Total replacement of right knee joint (p rocedure) 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 (procedure) Review Of Systems Provider reviewed on Mar 23, 2025.A complete review of systems was performed and was notable for problems with bleeding and muscle weakness.No Problems With Healing, No Problems With Scarring (hypertrophic Or Keloid), No Immunosuppression, No Hay Fever, No Chest Pain, No Fever Or Chills, No Night Sw eats, No Unintentional Weight Loss, No Thyroid Problems, No Sore Throat, No Blurry Vision, No Abdominal Pain, No Bloody Stool, No Bloody Urine, No Joint Aches, No Neck Stiffness, No Headaches, No Seizures, No Shortness Of Breath, No Wheezing, No Anxiety, And No Depression. Assessment 1.Dermatitis UnspecifiedAdditional NotesPhoto-Documentation:.Order TestsPrescription: mupirocin 2 %topical ointment TP; triamcinolone acetonide 0.1 % topical cream TPBiopsy by Shave Method: left proximal dorsal index finger. Plan of Care Future visit PRN - Follow up PRN - (once testing is complete) Code Detail Instructions 943974 Anaerobic and Aerobic Culture Se ptember 2024 510671 Anaerobic/Aerobic/Gram Stain Sep tember 2024 926582 mupirocin 2 % topical ointment A pply a thin layer BID to the open wound on the left index finger for 10 days. Then switch to a thin layer of vaseline to promote wound healing. 6023297 triamcinolone aceton amna 0.1 % topical cream apply a thin layer twice a day to the rash on the hands, 2 weeks on, 1 week off, repeat as needed, until rash resolves. Do not apply to open sores on the hands. OK to mix with vaseline during on weeks ; ok to continue with vaseline or healing ointments during the off week. 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
[2025-03-25 06:26] LABS: MANUAL DIFF FLAG NO
[2025-03-25 07:04] LABS: Hematocrit 29.6 % (42.0-52.0); Hemoglobin 9.4 g/dl (14.0-18.0); Imm Gran Abs Auto 0.01 X10*3/uL (0.00-0.03); Imm Gran Pct Auto 0.2 % (0.0-0.4); Lymphocytes Absolute Auto 1.1 X10*3/uL (1.2-4.9); Mean Corpuscular HGB Conc 31.8 g/dl (31.0-36.0); Mean Corpuscular Hemoglobin 31.9 pg (27.0-33.0); Mean Corpuscular Volume 100.3 fL (80.0-98.0); NRBC Abs Auto 0.000 X10*3/uL (0.0-0.012); NRBC Pct Auto 0.0 /100WBC (0.0-0.2); Platelet Count 158 X10*3/uL (160-400); Red Blood Count 2.95 X10*6/uL (4.60-5.80); White Blood Count 5.3 X10*3/uL (4.8-10.8)
== END 2025-03-25 06:21 | disposition home or self-care (01) ==
LOC: HO.HSH2E 06:20
PROVIDERS: Internal Medicine Nephrology; Visit Provider Internal Medicine Endocrinology, Diabetes & Metabolism
DX: D64.9 Anemia, unspecified (principal)
CPT/HCPCS: 36415; 85025

== ENCOUNTER 2025-03-29 15:16 | Outpatient (REF) | payer MEDICARE, SELFPAY ==
[2025-03-29 15:29] LABS: Appearance Urine Turbid; Glucose Urine UA Negative (Negative); PH 5.5 (5.0-9.0); Specific Gravity - Urine 1.010 (1.005-1.025); UMIC TRIGGER UA YES
--- OUTSIDE RECORDS SUMMARY | 2025-03-29 18:45 | XMS_ITS | Encounter Summary ---
Author Organization [facility] Address [address] [place] [address] Phone Care Team Providers Care Computer Game Programmer Name Role Phone Ila Holguin MD Primary Care Provider Encounter Details Date Type Department Care Team (Latest Contact Info) Description 06/17/2022 Transcribe Orders [facility] Specimen Processing [address] [place] [address] Ila Holguin MD [address] [place] [address] [email or web address] Atrial [...] ORDERABLES Final Res ult Performing Organization Address City/[facility] Co de Phone Number [address] [address] * (ABNORMAL) CBC (06/17/2022 6:35 AM EST) [...] ORDERABLES Final Res ult Performing Organization Address City/[facility]/ZIP Co de Phone Number [address] [address] * (ABNORMAL) Comprehensive metabolic panel (06/17/2022 6:35 [...] Final Res ult [facility] [address] [place] [address] documented in this encounter Visit Diagnoses Diagnosis Atrial fibrillation, unspecified type- Primary documented in this encounter Care Teams Computer Game Programmer Relationship Specialty Start Date End Date Ila Holguin MD [address] [place] [id number] PCP - General Internal Medicine 05/10/22 documented as of this encounter Additional Source Comments The information contained in this document represents components of the legal health record. It is not the complete legal health record.[facility]
--- OUTSIDE RECORDS SUMMARY | 2025-03-29 18:45 | XMS_ITS | Clinical Summary ---
Author Organization [facility] Address [address] [place] [address] [place] [address] Phone Care Team Providers Care Gas Welding Machine Operator Name Role Phone Ila Holguin MD Primary Care Provider [phone] Allergies No known active allergies Medications allopurinol [...] mouth nightly at bedtime. Active multivitamins-m inerals-folic seqq-twdfnza-aj tein (COMPLETE SENIOR) 0.4 mg-300 mcg- 250 [...] Plan (05/22/2022 4:58 PM EST): Presents from [facility] after having had urinary frequency, suprapubic pain, and fatigue, increased confusion, febrile to 101F there, decreased blood pressure, with urinalysis consistent with UTI. Received 1 dose of ciprofloxacin at 8 PM at 05/18/2022. UC from [facility], Ecoli. Similar on culture taken on admit, BC all negative. Some resistance, but susceptible to rocephin. Same for today. Need to keep kidney function in mind when choosing to deescalate. ? To be answered is if this is acute cystitis or more complicated UTI, as he has had multiple. Requested the last 4 discharge summaries from [facility]. His daughter has a huge amount of [...] is essentially been hospitalized or in a shelter facility since August it has not happened. She was wondering if we can have that done while here if it is something that is predisposing him to UTI Urine culture demonstrating [id number] colonies E. coli, resistant to amp, amp sulbactam -- On ceftriaxone, de-escalate to Ceftin -- Urology consult requested Acute kidney injury 05/11/2022 Assessment & Plan (05/22/2022 4:54 PM EST): Patient has had recent ESRD with hemodialysis treatments X8, at discharge to [facility] previously was at creatinine of 1.7 presents now with creatinine of 2.4 in setting of likely dehydration and complicated UTI. CRE is trending down with IVF and tx of UTI. If this trend continues, no need for imaging. Renal function improving with creatinine today 1.8 --Continue daily labs Assessment & Plan (05/11/2022 4:12 PM EDT): Recent KHADRA requiring hemodialysis during [facility] hospitalization. Per daughter, received 6 treatments. -- [...] delerium as well documented in notes from [facility] where this was ongoing and not changed. [...] 4:10 PM EDT): On presentation 04/22 at [facility] Completed daptomycin on 05/10 --Due for blood [...] skin thickness with weeping and oozing Per [facility] notes: Recommend Aquacel Ag covered by none [...] Routine 06/27/2022 5:45 AM EST Atherosclerosis of algaaciq coronary artery without angina pectoris, unspecified whether algaaciq or transplanted heart 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 HEMOGLOBIN A1C Routine 05/20/2022 6:27 AM EST from Last 3 Months or Most Recently Relevant to Health Maintenance Results * (ABNORMAL) Basic metabolic panel (06/27/2022 5:45 AM EST) SODIUM 136 133 - 146 mmol/L [facility] CHLORIDE 104 96 - 108 mmol/L [facility] POTASSIUM 4.8 3.3 - 5.1 mmol/L [facility] CO2 23 21 - 35 mmol/L [facility] BUN 58(H) 6 - 19 mg/dL [facility] CREATININE 2.20(H) 0.5 - 1.5 mg/dL [facility] GLUCOSE 99 70 - 99 mg/dL [facility] CALCIUM 12.3(H) 8.4 - 10.3 mg/dL [facility] EGFR 30(L) >59 mL/min/1.7 3m2 [facility] Comment:Estimated glomerular filtration rate calculated using the CKD-EPI refit equation. ANION GAP 14 10 - 20 mmol/L [facility] Blood 06/27/2022 5:45 AM EST 06/27/2022 8:59 AM EST us Ila Holguin MD LAB BLOOD ORDERABLES Final Res ult [facility] [address] [place] [address] * Hemoglobin A1c (05/20/2022 6:27 AM EST) HEMOGLOBIN A1C 5.4 4.3 - 5.8 % [facility] Blood 05/20/2022 6:27 AM EST 05/20/2022 6:44 AM EST us Joseph Christie CANDY CATCHER LAB BLOOD ORDERABLES Fi nal Result [facility] [address] [place] [address] from Last 3 Months or Most Recently Relevant to Health Maintenance Insurance [place] [id number] [facility] MEDICARE SUPPLEMENT MEDICARE PART A & [place] [id number] [place] [address] MEDICARE SUPPLEMENT MEDICARE PART A & B [facility] MEDICARE SUPPLEMENT MEDICARE PART A & B MEDICARE SUPPLEMENT MEDICARE PART A & B [facility] MEDICARE SUPPLEMENT MEDICARE PART A & B [facility] MEDICARE SUPPLEMENT MEDICARE PART A & B [facility] MEDICARE SUPPLEMENT MEDICARE PART A & B [facility] MEDICARE SUPPLEMENT MEDICARE PART A & B [facility] MEDICARE SUPPLEMENT Advance Directives For more information, please contact: [phone] (9AM - 5PM [facility], Friday-Friday) Documents on File Type Date Recorded Patient Cutter Tender Expl anation [facility] 05/24/2022 1:55 PM Healthcare Proxy 05/14/2022 1:[facility] 05[facility]12/2022 11:37 AM [facility] DO S 05/10/22 Healthcare Proxy 05/12/2022 11:36 AM [facility] 04/25/22 * DNR/DNI (No CPR/No Intubation) (Latest Code Status on File) Date Activated Date Inactivated Comments 05/19/2022 12:50 PM Question Answer Comments Code Status Confirmed With: PatientFamily * DNR/DNI (No CPR/No Intubation) Date Activated Date Inactivated Comments 05/11/2022 12:49 AM 05/19/2022 12:50 PM Question Answer Comments Code Status Confirmed With: Family Healthcare Agents on File Name Relationship Healthcare Agent [facility] p Communication Yulisa Hollis Daughter .Primary Health Care Agent (Proxy form on file) Care Teams Gas Welding Machine Operator Relationship Specialty Start Date End Date Ila Holguin MD [address] [place] [id number] [email or web address] PCP - General Internal Medicine 05/10/22 Additional Source Comments The information contained in this document represents components of the legal health record. It is not the complete legal health record.[facility]
--- OUTSIDE RECORDS SUMMARY | 2025-03-29 18:45 | XMS_ITS | Encounter Summary ---
Author Organization [facility] Address [address] [place] [address] [place] [phone] Phone Care Team Providers Care Wash Oil Cooler Operator Name Role Phone Ila Holguin MD Primary Care Provider [phone] Encounter Details Date Type Department Care Team (Late st Contact Info) Description 05/10/2022 Procedure Pass [facility], Ct Scan - [facility] [address] [place] [address] Social History Tobacco Use Types Packs/Day Years [...] 4:06 PM EDT Adilson Castillo, FACUNDO * [place] Suicide Severity Rating Scale (Screener/Recent Self-Report) Question [...] documented as of this encounter Care Teams Wash Oil Cooler Operator Relationship Specialty Start Date End Date Ila Holguin MD [address] [place] [address] [email or web address] PCP - General Internal Medicine 05/10/22 documented as of this encounter Additional Source Comments The information contained in this document represents components of the legal health record. It is not the complete legal health record.[facility]
--- OUTSIDE RECORDS SUMMARY | 2025-03-29 18:45 | XMS_ITS | Clinical Summary ---
Author Organization [facility] Address [address] [place] [address] Phone Care Team Providers Care Waiter/Waitress Cocktail Lounge Name Role Phone Vladimir Keys MD Primary Care Provider [phone] Allergies No known active allergies Medications acetaminophen [...] (09/18/2021): Added automatically from request for surgery [id number] Immunizations Immunization Administration Dates Next Due Influenza, Unspecified 04/24/2021,2019,03/14/2017,03/31/2016, 5 Pfizer SARS-COV-2 11/21/2020,10/29/2020 Family History Medical History Relation Comments Diabetes Father Heart disease Father OR Stroke Mother Relation Status Comments Father Mother [...] EDT Unless otherwise specified, test(s) performed at: [facility] [address] CLINIC MANAGER: Chris Gomez M.D. For any questions, please call customer service at FREQUENCY:MONTHLY Resulting Agency Comment Specimen source: Blood Brian Saldaña MD LAB BLOOD BANK TEST ORDERABLES F inal Result APS EBONIE PVNMA from Last 3 Months or Most Recently Relevant to Health Maintenance Insurance Medicare [facility] Medicare [facility] Care Teams Waiter/Waitress Cocktail Lounge Relationship Specialty Start Date End Date Vladimir Keys MD [address] [place] [address], [address] [place], [place] PCP - General 07/24/20
--- OUTSIDE RECORDS SUMMARY | 2025-03-29 18:45 | XMS_ITS | Clinical Summary ---
Author Organization [facility] it Address [address] [place] [address] Care Team Providers Care Accounts Receivable Collector Name Role Phone Unavailable Primary Care Provider [...]
== END 2025-03-29 15:17 | disposition home or self-care (01) ==
LOC: HO.HSH2E 15:16
PROVIDERS: Visit Provider Internal Medicine Endocrinology, Diabetes & Metabolism
DX: I87.2 Venous insufficiency (chronic) (peripheral) (principal); E11.9 Type 2 diabetes mellitus without complications
CPT/HCPCS: 81001

== ENCOUNTER 2025-03-31 14:24 | Outpatient (REF) | payer MEDICARE, SELFPAY ==
--- OUTSIDE RECORDS SUMMARY | 2025-03-31 16:14 | XMS_ITS | Encounter Summary ---
Author Organization [facility] Address [address] [place] [address] Phone Care Team Providers Care Die Turner Name Role Phone Ila Holguin MD Primary Care Provider [phone] Encounter Details Date Type Department Care Team (Latest Contact Info) Description 06/17/2022 Transcribe Orders [facility] Specimen Processing [address] [place] [address] Ila Holguin MD [address] [place] [address] [email or web address] Atrial fibrillation, unspecified type (Primary Dx) Social [...] EST) PT 21.5(H) 10.2 - 12.9 sec [facility] INR 1.9(H) 0.9 - 1.1 [facility] Comment:Therapeutic range fo r oral Vitamin K antagonists: 2.0-3.5 06/17/2022 6:35 AM EST 06/17/2022 8:33 AM EST Ila Holguin MD LAB BLOOD ORDERABLES Final Res ult Performing Organization Address City/[facility] Co de Phone Number [address] [address] * (ABNORMAL) CBC (06/17/2022 6:35 AM EST) WBC 6.62 4.00 - 11.00 K/uL [facility] RBC 2.83(L) 3.90 - 5.69 M/uL [facility] HGB 8.3(L) 12.4 - 17.3 g/dL [facility] Comment:Called to Purnima Corley and read back HCT 25.8(L) 37.0 - 51.0 % [facility] PLT 242 140 - 430 K/uL [facility] MCV 91.2 78.0 - 97.0 fL [facility] MCH 29.3 25.0 - 33.0 pg [facility] MCHC 32.2 32.0 - 36.0 g/dL [facility] RDW 19.0(H) 11.0 - 15.0 % [facility] MPV 10.5 8.4 - 12.8 fl [facility] 06/17/2022 6:35 AM EST 06/17/2022 8:33 AM EST lIa Holguin MD LAB BLOOD ORDERABLES Final Res ult Performing Organization Address City/[facility]/ZIP Co de Phone Number [address] [address] * (ABNORMAL) Comprehensive metabolic panel (06/17/2022 6:35 AM EST) SODIUM 139 133 - 146 mmol/L [facility] POTASSIUM 4.7 3.3 - 5.1 mmol/L [facility] CHLORIDE 107 96 - 108 mmol/L [facility] CO2 23 21 - 35 mmol/L [facility] BUN 45(H) 6 - 19 mg/dL [facility] CREATININE 2.20(H) 0.5 - 1.5 mg/dL [facility] GLUCOSE 94 70 - 99 mg/dL [facility] ALBUMIN 2.8(L) 3.9 - 4.8 g/dL [facility] TOTAL PROTEIN 6.1(L) 6.5 - 8.0 g/dL [facility] CALCIUM 11.8(H) 8.4 - 10.3 mg/dL [facility] ALKALINE PHOSPHATASE 94 39 - 117 U/L [facility] TOTAL BILIRUBIN 0.3 0.0 - 1.2 mg/dL [facility] AST 14 0 - 37 U/L [facility] ALT 7 0 - 40 U/L [facility] GLOBULIN 3.3 1 - 4.8 g/dL [facility] EGFR 30(L) >59 mL/min/1.7 3m2 [facility] Comment:Estimated glomerular filtration rate calculated using the CKD-EPI refit equation. ANION GAP 14 10 - 20 mmol/L [facility] 06/17/2022 6:35 AM EST 06/17/2022 8:33 AM EST Ila Holguin MD LAB BLOOD ORDERABLES Final Res ult [facility] [address] [place] [address] documented in this encounter Visit Diagnoses Diagnosis Atrial fibrillation, unspecified type- Primary documented in this encounter Care Teams Die Turner Relationship Specialty Start Date End Date Ila Holguin MD [address] [place] [address] PCP - General Internal Medicine 05/10/22 documented as of this encounter Additional Source Comments The information contained in this document represents components of the legal health record. It is not the complete legal health record.[facility]
--- OUTSIDE RECORDS SUMMARY | 2025-03-31 16:14 | XMS_ITS | Clinical Summary ---
Author Organization [facility] it Address [address] [place] [address] Care Team Providers Care Turbogenerator Operator Name Role Phone Unavailable Primary Care [...]
--- OUTSIDE RECORDS SUMMARY | 2025-03-31 16:14 | XMS_ITS | Clinical Summary ---
Author Organization [facility] Address [address] [place] [address] [place] [address] Phone Care Team Providers Care Veneer Drier Tailer Name Role Phone Ila Holguin MD Primary Care Provider [phone] Allergies No known active allergies Medications allopurinol [...] mouth nightly at bedtime. Active multivitamins-m inerals-folic cwnr-fmwdjfv-vd tein (COMPLETE SENIOR) 0.4 mg-300 mcg- 250 [...] Plan (05/22/2022 4:58 PM EST): Presents from [facility] after having had urinary frequency, suprapubic pain, and fatigue, increased confusion, febrile to 101F there, decreased blood pressure, with urinalysis consistent with UTI. Received 1 dose of ciprofloxacin at 8 PM at 05/18/2022. UC from [facility], Ecoli. Similar on culture taken on admit, BC all negative. Some resistance, but susceptible to rocephin. Same for today. Need to keep kidney function in mind when choosing to deescalate. ? To be answered is if this is acute cystitis or more complicated UTI, as he has had multiple. Requested the last 4 discharge summaries from [facility]. His daughter has a huge amount [...] is essentially been hospitalized or in a ch[facility] facility since August it has not happened. She was wondering if we can have that done while here if it is something that is predisposing him to UTI Urine culture demonstrating [id number] colonies E. coli, resistant to amp, amp sulbactam -- On ceftriaxone, de-escalate to Ceftin -- Urology consult requested Acute kidney injury 05/11/2022 Assessment & Plan (05/22/2022 4:54 PM EST): Patient has had recent ESRD with hemodialysis treatments X8, at discharge to [facility] previously was at creatinine of 1.7 presents now with creatinine of 2.4 in setting of likely dehydration and complicated UTI. CRE is trending down with IVF and tx of UTI. If this trend continues, no need for imaging. Renal function improving with creatinine today 1.8 --Continue daily labs Assessment & Plan (05/11/2022 4:12 PM EDT): Recent KHADRA requiring hemodialysis during [facility] hospitalization. Per daughter, received 6 treatments. [...] delerium as well documented in notes from [facility] where this was ongoing and not [...] 4:10 PM EDT): On presentation 04/22 at [facility] Completed daptomycin on 05/10 --Due for [...] skin thickness with weeping and oozing Per [facility] notes: Recommend Aquacel Ag covered by [...] Routine 06/27/2022 5:45 AM EST Atherosclerosis of [place] coronary artery without angina pectoris, unspecified whether [place] or transplanted heart 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 HEMOGLOBIN A1C Routine 05/20/2022 6:27 AM EST from Last 3 Months or Most Recently Relevant to Health Maintenance Results * (ABNORMAL) Basic metabolic panel (06/27/2022 5:45 AM EST) SODIUM 136 133 - 146 mmol/L [facility] CHLORIDE 104 96 - 108 mmol/L [facility] POTASSIUM 4.8 3.3 - 5.1 mmol/L [facility] CO2 23 21 - 35 mmol/L [facility] BUN 58(H) 6 - 19 mg/dL [facility] CREATININE 2.20(H) 0.5 - 1.5 mg/dL [facility] GLUCOSE 99 70 - 99 mg/dL [facility] CALCIUM 12.3(H) 8.4 - 10.3 mg/dL [facility] EGFR 30(L) >59 mL/min/1.7 3m2 [facility] Comment:Estimated glomerular filtration rate calculated using the CKD-EPI refit equation. ANION GAP 14 10 - 20 mmol/L [facility] Blood 06/27/2022 5:45 AM EST 06/27/2022 8:59 AM EST us Ila Holguin MD LAB BLOOD ORDERABLES Final Res ult [facility] [address] [place] [address] * Hemoglobin A1c (05/20/2022 6:27 AM EST) HEMOGLOBIN A1C 5.4 4.3 - 5.8 % [facility] Blood 05/20/2022 6:27 AM EST 05/20/2022 6:44 AM EST us Joseph Christie ELECTRICIAN ELEVATOR MAINTENANCE LAB BLOOD ORDERABLES Fi nal Result [facility] [address] [place] [address] from Last 3 Months or Most Recently Relevant to Health Maintenance Insurance MED[place] [id number] [facility] MEDICARE SUPPLEMENT MEDICARE PART A & B [id number] [place] [address] MEDICARE SUPPLEMENT MEDICARE PART A & B [facility] MEDICARE SUPPLEMENT MEDICARE PART A & B MEDICARE SUPPLEMENT MEDICARE PART A & B [facility] MEDICARE SUPPLEMENT MEDICARE PART A & B [facility] MEDICARE SUPPLEMENT MEDICARE PART A & B [facility] MEDICARE SUPPLEMENT MEDICARE PART A & B [facility] MEDICARE SUPPLEMENT MEDICARE PART A & B [facility] MEDICARE SUPPLEMENT Advance Directives For more information, please contact: [phone] (9AM - 5PM [facility], Friday-Friday) Documents on File Type Date Recorded Patient Butt Maker Expl anation [facility] 05/24/2022 1:55 PM Healthcare Proxy 05/14/2022 1:26 PM [facility] 05[facility]12/2022 11:37 AM [facility] DO S 05/10/22 Healthcare Proxy 05/12/2022 11:36 AM [facility] 04/25/22 * DNR/DNI (No CPR/No Intubation) (Latest Code Status on File) Date Activated Date Inactivated Comments 05/19/2022 12:50 PM Question Answer Comments Code Status Confirmed With: PatientFamily * DNR/DNI (No CPR/No Intubation) Date Activated Date Inactivated Comments 05/11/2022 12:49 AM 05/19/2022 12:50 PM Question Answer Comments Code Status Confirmed With: Family Healthcare Agents on File Name Relationship Healthcare Agent [facility] p Communication Yulisa Hollis Daughter .Primary Health Care Agent (Proxy form on file) Care Teams Veneer Drier Tailer Relationship Specialty Start Date End Date Ila Holguin MD [address] [place] [address] [email or web address] PCP - General Internal Medicine 05/10/22 Additional Source Comments The information contained in this document represents components of the legal health record. It is not the complete legal health record.[facility]
--- OUTSIDE RECORDS SUMMARY | 2025-03-31 16:14 | XMS_ITS | Clinical Summary ---
Author Organization [facility] Address [address] [place] [address] Phone Care Team Providers Care Scouring Machine Operator Name Role Phone Vladimir Keys MD Primary Care Provider [phone] Allergies No known active allergies Medications acetaminophen [...] (09/18/2021): Added automatically from request for surgery [id number] Immunizations Immunization Administration Dates Next Due Influenza, [...] EDT Unless otherwise specified, test(s) performed at: [facility] [address] SOFTWARE ENGINEER ADVISOR: Chris Gomez M.D. For any questions, please call customer service at FREQUENCY:MONTHLY Resulting Agency Comment Specimen source: Blood Brian Saldaña MD LAB BLOOD BANK TEST ORDERABLES F inal Result [facility] EBONIE PVNMA from Last 3 Months or Most Recently Relevant to Health Maintenance Insurance Medicare [facility] Medicare [facility] Care Teams Scouring Machine Operator Relationship Specialty Start Date End Date Vladimir Keys MD [address] [place] [address], [address] [place], [place] PCP - General 07/24/20
--- OUTSIDE RECORDS SUMMARY | 2025-03-31 16:14 | XMS_ITS | Encounter Summary ---
Author Organization [facility] Address [address] [place] [address] [place] [address] Phone Care Team Providers Care Vp Digital Marketing Social Media And Crm Name Role Phone Ila Holguin MD Primary Care Provider [phone] Encounter Details Date Type Department Care Team (Late st Contact Info) Description 05/10/2022 Procedure Pass [facility], Ct Scan - [facility] [address] [place] [address] Social History Tobacco Use Types Packs/Day Years [...] 4:06 PM EDT Adilson Castillo, FACUNDO * [place] Suicide Severity Rating Scale (Screener/Recent Self-Report) Question [...] documented as of this encounter Care Teams Vp Digital Marketing Social Media And Crm Relationship Specialty Start Date End Date Ila Holguin MD [address] [place] [address] [email or web address] PCP - General Internal Medicine 05/10/22 documented as of this encounter Additional Source Comments The information contained in this document represents components of the legal health record. It is not the complete legal health record.[facility]
== END 2025-03-31 14:25 | disposition home or self-care (01) ==
LOC: HO.HSH2E 14:24
PROVIDERS: Visit Provider Internal Medicine Endocrinology, Diabetes & Metabolism
DX: N40.0 Benign prostatic hyperplasia without lower urinary tract symptoms (principal); R30.0 Dysuria; R35.0 Frequency of micturition
CPT/HCPCS: 87086; 87088; 87186

== ENCOUNTER 2025-04-04 05:47 | Outpatient (REF) | payer MEDICARE, SELFPAY ==
--- OUTSIDE RECORDS SUMMARY | 2025-04-04 05:50 | XMS_ITS | Encounter Summary ---
Author Organization [facility] Address [address] [place] [address] [place] [address] Phone Care Team Providers Care Reinforcing Metal Worker Name Role Phone Ila Holguin MD Primary Care Provider [phone] Encounter Details Date Type Department Care Team (Late st Contact Info) Description 05/10/2022 Procedure Pass [facility], Ct Scan - [facility] [address] [place] [address] Social History Tobacco Use Types Packs/Day Years [...] 4:06 PM EDT Adilson Castillo, FACUNDO * [place] Suicide Severity Rating Scale (Screener/Recent Self-Report) Question [...] documented as of this encounter Care Teams Reinforcing Metal Worker Relationship Specialty Start Date End Date Ila Holguin MD [address] [place] [address] [email or web address] PCP - General Internal Medicine 05/10/22 documented as of this encounter Additional Source Comments The information contained in this document represents components of the legal health record. It is not the complete legal health record.[facility]
--- OUTSIDE RECORDS SUMMARY | 2025-04-04 05:50 | XMS_ITS | Clinical Summary ---
Author Organization [facility] it Address [address] [place] [address] Care Team Providers Care Casting And Locker Room Servicer Name Role Phone Unavailable Primary Care Provider [...]
--- OUTSIDE RECORDS SUMMARY | 2025-04-04 05:50 | XMS_ITS | Clinical Summary ---
Author Organization [facility] Address [address] [place] [address] [place] [address] Phone Care Team Providers Care Mail Delivery Supervisor Name Role Phone Ila Holguin MD Primary Care Provider [phone] Allergies No known active allergies Medications allopurinol [...] mouth nightly at bedtime. Active multivitamins-m inerals-folic sxxf-vibbeir-zr tein (COMPLETE SENIOR) 0.4 mg-300 mcg- 250 [...] Plan (05/22/2022 4:58 PM EST): Presents from [facility] after having had urinary frequency, suprapubic pain, and fatigue, increased confusion, febrile to 101F there, decreased blood pressure, with urinalysis consistent with UTI. Received 1 dose of ciprofloxacin at 8 PM at 05/18/2022. UC from [facility], Ecoli. Similar on culture taken on admit, BC all negative. Some resistance, but susceptible to rocephin. Same for today. Need to keep kidney function in mind when choosing to deescalate. ? To be answered is if this is acute cystitis or more complicated UTI, as he has had multiple. Requested the last 4 discharge summaries from [facility]. His daughter has a huge amount [...] is essentially been hospitalized or in a usp facility since August it has not happened. She was wondering if we can have that done while here if it is something that is predisposing him to UTI Urine culture demonstrating [id number] colonies E. coli, resistant to amp, amp sulbactam -- On ceftriaxone, de-escalate to Ceftin -- Urology consult requested Acute kidney injury 05/11/2022 Assessment & Plan (05/22/2022 4:54 PM EST): Patient has had recent ESRD with hemodialysis treatments X8, at discharge to [facility] previously was at creatinine of 1.7 presents now with creatinine of 2.4 in setting of likely dehydration and complicated UTI. CRE is trending down with IVF and tx of UTI. If this trend continues, no need for imaging. Renal function improving with creatinine today 1.8 --Continue daily labs Assessment & Plan (05/11/2022 4:12 PM EDT): Recent KHADRA requiring hemodialysis during [facility] hospitalization. Per daughter, received 6 treatments. 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7 3m2 [facility] Comment:Estimated glomerular filtration rate calculated using the CKD-EPI refit equation. ANION GAP 14 10 - 20 mmol/L [facility] Blood 06/27/2022 5:45 AM EST 06/27/2022 8:59 AM EST us Ila Holguin MD LAB BLOOD ORDERABLES Final Res ult [facility] [address] [place] [address] * Hemoglobin A1c (05/20/2022 6:27 AM EST) HEMOGLOBIN A1C 5.4 4.3 - 5.8 % [facility] Blood 05/20/2022 6:27 AM EST 05/20/2022 6:44 AM EST us Joseph Christie PLUG AND MOLD FINISHER LAB BLOOD ORDERABLES Fi nal Result [facility] [address] [place] [address] from Last 3 Months or Most Recently Relevant to Health Maintenance Insurance MED[place] [id number] [facility] MEDICARE SUPPLEMENT MEDICARE PART A & B [id number] [place] [address] MEDICARE SUPPLEMENT MEDICARE PART A & B [facility] MEDICARE SUPPLEMENT MEDICARE PART A & B MEDICARE SUPPLEMENT MEDICARE PART A & B [facility] MEDICARE SUPPLEMENT MEDICARE PART A & B [facility] MEDICARE SUPPLEMENT MEDICARE PART A & B [facility] MEDICARE SUPPLEMENT MEDICARE PART A & B [facility] MEDICARE SUPPLEMENT MEDICARE PART A & B [facility] MEDICARE SUPPLEMENT Advance Directives For more information, please contact: [phone] (9AM - 5PM [facility], Friday-Friday) Documents on File Type Date Recorded Patient Practical Nursing Teacher Expl anation [facility] 05/24/2022 1:55 PM Healthcare Proxy 05/14/2022 1:[facility] 11[facility]37 AM [facility] DO S 05/10/22 Healthcare Proxy 05/12/2022 11:36 AM [facility] 04/25/22 * DNR/DNI (No CPR/No Intubation) (Latest Code Status on File) Date Activated Date Inactivated Comments 05/19/2022 12:50 PM Question Answer Comments Code Status Confirmed With: PatientFamily * DNR/DNI (No CPR/No Intubation) Date Activated Date Inactivated Comments 05/11/2022 12:49 AM 05/19/2022 12:50 PM Question Answer Comments Code Status Confirmed With: Family Healthcare Agents on File Name Relationship Healthcare Agent [facility] p Communication Yulisa Hollis Daughter .Primary Health Care Agent (Proxy form on file) Care Teams Mail Delivery Supervisor Relationship Specialty Start Date End Date Ila Holguin MD [address] [place] [address] [email or web address] PCP - General Internal Medicine 05/10/22 Additional Source Comments The information contained in this document represents components of the legal health record. It is not the complete legal health record.[facility]
--- OUTSIDE RECORDS SUMMARY | 2025-04-04 05:50 | XMS_ITS | Clinical Summary ---
Author Organization [facility] Address [address] [place] [address] Phone Care Team Providers Care Travel Registered Nurse Icu Name Role Phone Vladimir Keys MD Primary Care Provider [phone] Allergies No known active allergies Medications acetaminophen [...] (09/18/2021): Added automatically from request for surgery [id number] Immunizations Immunization Administration Dates Next Due Influenza, Unspecified 04/24/2021,2019,03/14/2017,03/31/2016, 5 Pfizer SARS-COV-2 11/21/2020,10/29/2020 Family History Medical History Relation Comments Diabetes Father Heart disease Father [place] Stroke Mother Relation Status Comments Father Mother [...] EDT Unless otherwise specified, test(s) performed at: [facility] [address] INTERNET ECOMMERCE SPECIALIST: Chris Gomez M.D. For any questions, please call customer service at FREQUENCY:MONTHLY Resulting Agency Comment Specimen source: Blood Brian Saldaañ MD LAB BLOOD BANK TEST ORDERABLES F inal Result [facility]PS EBONIE PVNMA from Last 3 Months or Most Recently Relevant to Health Maintenance Insurance Medicare [facility] Medicare [facility] Care Teams Travel Registered Nurse Icu Relationship Specialty Start Date End Date Vladimir Keys MD [address] [place] [address], [address] [place], [place] PCP - General 07/24/20
--- OUTSIDE RECORDS SUMMARY | 2025-04-04 05:50 | XMS_ITS | Encounter Summary ---
Author Organization [facility] Address [address] [place] [address] Phone Care Team Providers Care Clinical Systems Analyst Name Role Phone Ila Holguin MD Primary Care Provider [phone] Encounter Details Date Type Department Care Team (Latest Contact Info) Description 06/17/2022 Transcribe Orders [facility] Specimen Processing [address] [place] [address] Ila Holguin MD [address] [place] [address] [email or web address] Atrial fibrillation, unspecified type (Primary Dx) Social [...] EST) PT 21.5(H) 10.2 - 12.9 sec [facility] INR 1.9(H) 0.9 - 1.1 [facility] Comment:Therapeutic range fo r oral Vitamin K antagonists: 2.0-3.5 06/17/2022 6:35 AM EST 06/17/2022 8:33 AM EST Ila Holguin MD LAB BLOOD ORDERABLES Final Res ult Performing Organization Address City/[facility] Co de Phone Number [address] [address] * (ABNORMAL) CBC (06/17/2022 6:35 AM EST) WBC 6.62 4.00 - 11.00 K/uL [facility] RBC 2.83(L) 3.90 - 5.69 M/uL [facility] HGB 8.3(L) 12.4 - 17.3 g/dL [facility] Comment:Called to Purnima Corley and read back HCT 25.8(L) 37.0 - 51.0 % [facility] PLT 242 140 - 430 K/uL [facility] MCV 91.2 78.0 - 97.0 fL [facility] MCH 29.3 25.0 - 33.0 pg [facility] MCHC 32.2 32.0 - 36.0 g/dL [facility] RDW 19.0(H) 11.0 - 15.0 % [facility] MPV 10.5 8.4 - 12.8 fl [facility] 06/17/2022 6:35 AM EST 06/17/2022 8:33 AM EST Ila Holguin MD LAB BLOOD ORDERABLES Final Res ult Performing Organization Address City/[facility]/ZIP Co de Phone Number [address] [address] * (ABNORMAL) Comprehensive metabolic panel (06/17/2022 6:35 AM EST) SODIUM 139 133 - 146 mmol/L [facility] POTASSIUM 4.7 3.3 - 5.1 mmol/L [facility] CHLORIDE 107 96 - 108 mmol/L [facility] CO2 23 21 - 35 mmol/L [facility] BUN 45(H) 6 - 19 mg/dL [facility] CREATININE 2.20(H) 0.5 - 1.5 mg/dL [facility] GLUCOSE 94 70 - 99 mg/dL [facility] ALBUMIN 2.8(L) 3.9 - 4.8 g/dL [facility] TOTAL PROTEIN 6.1(L) 6.5 - 8.0 g/dL [facility] CALCIUM 11.8(H) 8.4 - 10.3 mg/dL [facility] ALKALINE PHOSPHATASE 94 39 - 117 U/L [facility] TOTAL BILIRUBIN 0.3 0.0 - 1.2 mg/dL [facility] AST 14 0 - 37 U/L [facility] ALT 7 0 - 40 U/L [facility] GLOBULIN 3.3 1 - 4.8 g/dL [facility] EGFR 30(L) >59 mL/min/1.7 3m2 [facility] Comment:Estimated glomerular filtration rate calculated using the CKD-EPI refit equation. ANION GAP 14 10 - 20 mmol/L [facility] 06/17/2022 6:35 AM EST 06/17/2022 8:33 AM EST Ila Holguin MD LAB BLOOD ORDERABLES Final Res ult [facility] [address] [place] [address] documented in this encounter Visit Diagnoses Diagnosis Atrial fibrillation, unspecified type- Primary documented in this encounter Care Teams Clinical Systems Analyst Relationship Specialty Start Date End Date Ila Holguin MD [address] [place] [address] PCP - General Internal Medicine 05/10/22 documented as of this encounter Additional Source Comments The information contained in this document represents components of the legal health record. It is not the complete legal health record.[facility]
[2025-04-04 06:10] LABS: INTERNATIONAL NORM RATIO 3.6 (0.9-1.1); Prothrombin Time 41.6 SEC (10.9-12.4)
== END 2025-04-04 05:48 | disposition home or self-care (01) ==
LOC: HO.HSH2E 05:47
PROVIDERS: Visit Provider Internal Medicine Endocrinology, Diabetes & Metabolism
DX: Z95.2 Presence of prosthetic heart valve (principal)
CPT/HCPCS: 36415; 85610

== ENCOUNTER 2025-04-07 06:09 | Outpatient (REF) | payer MEDICARE, SELFPAY ==
--- OUTSIDE RECORDS SUMMARY | 2025-04-07 06:13 | XMS_ITS | Clinical Summary ---
Author Organization [facility] Address [address] [place] [address] Phone Care Team Providers Care Machine Guide Base Winder Name Role Phone Vladimir Keys MD Primary Care Provider [phone] Allergies No known active allergies Medications acetaminophen [...] (09/18/2021): Added automatically from request for surgery [id number] Immunizations Immunization Administration Dates Next Due Influenza, Unspecified 04/24/2021,2019,03/14/2017,03/31/2016, 5 Pfizer SARS-COV-2 11/21/2020,10/29/2020 Family History Medical History Relation Comments Diabetes Father Heart disease Father [place] Stroke Mother Relation Status Comments Father Mother [...] EDT Unless otherwise specified, test(s) performed at: [facility] [address] IN SHOP SERVICE TECHNICIAN: Chris Gomez M.D. For any questions, please call customer service at FREQUENCY:MONTHLY Resulting Agency Comment Specimen source: Blood Brian Saldaña MD LAB BLOOD BANK TEST ORDERABLES F inal Result APS EBONIE PVNMA from Last 3 Months or Most Recently Relevant to Health Maintenance Insurance Medicare [facility] Medicare [facility] Care Teams Machine Guide Base Winder Relationship Specialty Start Date End Date Vladimir Keys MD [address] [place] [address], [address] [place], [place] PCP - General 07/24/20
--- OUTSIDE RECORDS SUMMARY | 2025-04-07 06:13 | XMS_ITS | Clinical Summary ---
Author Organization [facility] Address [address] [place] [address] [place] [address] Phone Care Team Providers Care Sheet Tester Name Role Phone Ila Holguin MD Primary Care Provider [phone] Allergies No known active allergies Medications allopurinol [...] mouth nightly at bedtime. Active multivitamins-m inerals-folic ickj-qanymzo-ec tein (COMPLETE SENIOR) 0.4 mg-300 mcg- 250 [...] Plan (05/22/2022 4:58 PM EST): Presents from [facility] after having had urinary frequency, suprapubic pain, and fatigue, increased confusion, febrile to 101F there, decreased blood pressure, with urinalysis consistent with UTI. Received 1 dose of ciprofloxacin at 8 PM at 05/18/2022. UC from [facility], Ecoli. Similar on culture taken on admit, BC all negative. Some resistance, but susceptible to rocephin. Same for today. Need to keep kidney function in mind when choosing to deescalate. ? To be answered is if this is acute cystitis or more complicated UTI, as he has had multiple. Requested the last 4 discharge summaries from [facility]. His daughter has a huge [...] is essentially been hospitalized or in a long-term facility since August it has not happened. She was wondering if we can have that done while here if it is something that is predisposing him to UTI Urine culture demonstrating [id number] colonies E. coli, resistant to amp, amp sulbactam -- On ceftriaxone, de-escalate to Ceftin -- Urology consult requested Acute kidney injury 05/11/2022 Assessment & Plan (05/22/2022 4:54 PM EST): Patient has had recent ESRD with hemodialysis treatments X8, at discharge to [facility] previously was at creatinine of 1.7 presents now with creatinine of 2.4 in setting of likely dehydration and complicated UTI. CRE is trending down with IVF and tx of UTI. If this trend continues, no need for imaging. Renal function improving with creatinine today 1.8 --Continue daily labs Assessment & Plan (05/11/2022 4:12 PM EDT): Recent KHADRA requiring hemodialysis during [facility] hospitalization. 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 HEMOGLOBIN A1C Routine 05/20/2022 6:27 AM EST from Last 3 Months or Most Recently Relevant to Health Maintenance Results * (ABNORMAL) Basic metabolic panel (06/27/2022 5:45 AM EST) SODIUM 136 133 - 146 mmol/L [facility] CHLORIDE 104 96 - 108 mmol/L [facility] POTASSIUM 4.8 3.3 - 5.1 mmol/L [facility] CO2 23 21 - 35 mmol/L [facility] BUN 58(H) 6 - 19 mg/dL [facility] CREATININE 2.20(H) 0.5 - 1.5 mg/dL [facility] GLUCOSE 99 70 - 99 mg/dL [facility] CALCIUM 12.3(H) 8.4 - 10.3 mg/dL [facility] EGFR 30(L) >59 mL/min/1.7 3m2 [facility] Comment:Estimated glomerular filtration rate calculated using the CKD-EPI refit equation. ANION GAP 14 10 - 20 mmol/L [facility] Blood 06/27/2022 5:45 AM EST 06/27/2022 8:59 AM EST us Ila Holguin MD LAB BLOOD ORDERABLES Final Res ult [facility] [address] [place] [address] * Hemoglobin A1c (05/20/2022 6:27 AM EST) HEMOGLOBIN A1C 5.4 4.3 - 5.8 % [facility] Blood 05/20/2022 6:27 AM EST 05/20/2022 6:44 AM EST us Joseph Christie CERTIFIED PERSONAL TRAINER LAB BLOOD ORDERABLES Fi nal Result [facility] [address] [place] [address] from Last 3 Months or Most Recently Relevant to Health Maintenance Insurance [place] [id number] [facility] MEDICARE SUPPLEMENT MEDICARE PART A & B [id number] [place] [address] MEDICARE SUPPLEMENT MEDICARE PART A & B [facility] MEDICARE SUPPLEMENT MEDICARE PART A & B Member Subscriber Plan / Payer (Ef fective 2008-Present) Name:Gume Kearns Member ID:[id number] Relation to Subscriber:Self Name:Gume Kearns Subscriber ID:[id number] Payer ID:[id number] Group ID:Not on file Type:Medicare Address: [employer] [address] [place] [address] [place] [address] MEDICARE SUPPLEMENT MEDICARE PART A & B [facility] MEDICARE SUPPLEMENT MEDICARE PART A & B [facility] MEDICARE SUPPLEMENT MEDICARE PART A & B [facility] MEDICARE SUPPLEMENT MEDICARE PART A & B [facility] MEDICARE SUPPLEMENT MEDICARE PART A & B [facility] MEDICARE [place]PP[place]MENT [facility] Address: [facility] CLAIMS [employer] [address] [place] [address] Advance Directives For more information, please contact: [phone] (9AM - 5PM [facility], Friday-Friday) Documents on File Type Date Recorded Patient Barrel Bridge Assembler Expl anation [facility] 05/24/2022 1:55 PM Healthcare Proxy 05/14/2022 1:26 PM [facility]12[facility]20[facility] 11:37 AM [facility] DO S 05/10/22 Healthcare Proxy 05/12/2022 11:36 AM [facility] 04/25/22 * DNR/DNI (No CPR/No Intubation) (Latest Code Status on File) Date Activated Date Inactivated Comments 05/19/2022 12:50 PM Question Answer Comments Code Status Confirmed With: PatientFamily * DNR/DNI (No CPR/No Intubation) Date Activated Date Inactivated Comments 05/11/2022 12:49 AM 05/19/2022 12:50 PM Question Answer Comments Code Status Confirmed With: Family Healthcare Agents on File Name Relationship Healthcare Agent [facility] p Communication Yulisa Hollis Daughter .Primary Health Care Agent (Proxy form on file) Care Teams Sheet Tester Relationship Specialty Start Date End Date Ila Holguin MD [address] [place] [address] [email or web address] PCP - General Internal Medicine 05/10/22 Additional Source Comments The information contained in this document represents components of the legal health record. It is not the complete legal health record.[facility]
--- OUTSIDE RECORDS SUMMARY | 2025-04-07 06:13 | XMS_ITS | Clinical Summary ---
Author Organization [facility] it Address [address] [place] [address] Care Team Providers Care Abrading Machine Tender Name Role Phone Unavailable Primary Care Provider [...]
--- OUTSIDE RECORDS SUMMARY | 2025-04-07 06:13 | XMS_ITS | Encounter Summary ---
Author Organization [facility] Address [address] [place] [address] Phone Care Team Providers Care Stitcher Set Up Operator Automatic Name Role Phone Ila Holguin MD Primary Care Provider [phone] Encounter Details Date Type Department Care Team (Latest Contact Info) Description 06/17/2022 Transcribe Orders [facility] Specimen Processing [address] [place] [address] Ila Holguin MD [address] [place] [address] [email or web address] Atrial fibrillation, unspecified type (Primary Dx) Social [...] EST) PT 21.5(H) 10.2 - 12.9 sec [facility] INR 1.9(H) 0.9 - 1.1 [facility] Comment:Therapeutic range fo r oral Vitamin K antagonists: 2.0-3.5 06/17/2022 6:35 AM EST 06/17/2022 8:33 AM EST Ila Holguin MD LAB BLOOD ORDERABLES Final Res ult Performing Organization Address City/[facility] Co de Phone Number [address] [address] * (ABNORMAL) CBC (06/17/2022 6:35 AM EST) WBC 6.62 4.00 - 11.00 K/uL [facility] RBC 2.83(L) 3.90 - 5.69 M/uL [facility] HGB 8.3(L) 12.4 - 17.3 g/dL [facility] Comment:Called to Purnima Corley and read back HCT 25.8(L) 37.0 - 51.0 % [facility] PLT 242 140 - 430 K/uL [facility] MCV 91.2 78.0 - 97.0 fL [facility] MCH 29.3 25.0 - 33.0 pg [facility] MCHC 32.2 32.0 - 36.0 g/dL [facility] RDW 19.0(H) 11.0 - 15.0 % [facility] MPV 10.5 8.4 - 12.8 fl [facility] 06/17/2022 6:35 AM EST 06/17/2022 8:33 AM EST Ila Holguin MD LAB BLOOD ORDERABLES Final Res ult Performing Organization Address City/[facility]/ZIP Co de Phone Number [address] [address] * (ABNORMAL) Comprehensive metabolic panel (06/17/2022 6:35 AM EST) SODIUM 139 133 - 146 mmol/L [facility] POTASSIUM 4.7 3.3 - 5.1 mmol/L [facility] CHLORIDE 107 96 - 108 mmol/L [facility] CO2 23 21 - 35 mmol/L [facility] BUN 45(H) 6 - 19 mg/dL [facility] CREATININE 2.20(H) 0.5 - 1.5 mg/dL [facility] GLUCOSE 94 70 - 99 mg/dL [facility] ALBUMIN 2.8(L) 3.9 - 4.8 g/dL [facility] TOTAL PROTEIN 6.1(L) 6.5 - 8.0 g/dL [facility] CALCIUM 11.8(H) 8.4 - 10.3 mg/dL [facility] ALKALINE PHOSPHATASE 94 39 - 117 U/L [facility] TOTAL BILIRUBIN 0.3 0.0 - 1.2 mg/dL [facility] AST 14 0 - 37 U/L [facility] ALT 7 0 - 40 U/L [facility] GLOBULIN 3.3 1 - 4.8 g/dL [facility] EGFR 30(L) >59 mL/min/1.7 3m2 [facility] Comment:Estimated glomerular filtration rate calculated using the CKD-EPI refit equation. ANION GAP 14 10 - 20 mmol/L [facility] 06/17/2022 6:35 AM EST 06/17/2022 8:33 AM EST Ila Holguin MD LAB BLOOD ORDERABLES Final Res ult [facility] [address] [place] [address] documented in this encounter Visit Diagnoses Diagnosis Atrial fibrillation, unspecified type- Primary documented in this encounter Care Teams Stitcher Set Up Operator Automatic Relationship Specialty Start Date End Date Ila Holguin MD [address] [place] [address] PCP - General Internal Medicine 05/10/22 documented as of this encounter Additional Source Comments The information contained in this document represents components of the legal health record. It is not the complete legal health record.[facility]
--- OUTSIDE RECORDS SUMMARY | 2025-04-07 06:13 | XMS_ITS | Encounter Summary ---
Author Organization [facility] Address [address] [place] [address] [place] [address] Phone Care Team Providers Care Crimping Machine Operator For Metal Name Role Phone Ila Holguin MD Primary Care Provider [phone] Encounter Details Date Type Department Care Team (Late st Contact Info) Description 05/10/2022 Procedure Pass [facility], Ct Scan - [facility] [address] [place] [address] Social History Tobacco Use Types Packs/Day Years [...] 4:06 PM EDT Adilson Castillo, FACUNDO * [place] Suicide Severity Rating Scale (Screener/Recent Self-Report) Question [...] documented as of this encounter Care Teams Crimping Machine Operator For Metal Relationship Specialty Start Date End Date Ila Holguin MD [address] [place] [address] [email or web address] PCP - General Internal Medicine 05/10/22 documented as of this encounter Additional Source Comments The information contained in this document represents components of the legal health record. It is not the complete legal health record.[facility]
[2025-04-07 06:35] LABS: INTERNATIONAL NORM RATIO 2.2 (0.9-1.1); Prothrombin Time 25.0 SEC (10.9-12.4)
== END 2025-04-07 06:10 | disposition home or self-care (01) ==
LOC: HO.HSH2E 06:09
PROVIDERS: Visit Provider Internal Medicine Endocrinology, Diabetes & Metabolism
DX: Z95.2 Presence of prosthetic heart valve (principal); Z79.899 Other long term (current) drug therapy
CPT/HCPCS: 36415; 85610

== ENCOUNTER 2025-04-15 07:13 | Outpatient (REF) | payer MEDICARE, SELFPAY ==
--- OUTSIDE RECORDS SUMMARY | 2025-04-15 07:17 | XMS_ITS | Encounter Summary ---
Author Organization [facility] Address [address] [place] [address] Phone Care Team Providers Care Customer Service Advocate Name Role Phone Ila Holguin MD Primary Care Provider [phone] Encounter Details Date Type Department Care Team (Latest Contact Info) Description 06/17/2022 Transcribe Orders [facility] Specimen Processing [address] [place] [address] Ila Holguin MD [address] [place] [address] [email or web address] Atrial fibrillation, unspecified type (Primary Dx) Social [...] EST) PT 21.5(H) 10.2 - 12.9 sec [facility] INR 1.9(H) 0.9 - 1.1 [facility] Comment:Therapeutic range fo r oral Vitamin K antagonists: 2.0-3.5 06/17/2022 6:35 AM EST 06/17/2022 8:33 AM EST Ila Holguin MD LAB BLOOD ORDERABLES Final Res ult Performing Organization Address City/[facility] Co de Phone Number [address] [address] * (ABNORMAL) CBC (06/17/2022 6:35 AM EST) WBC 6.62 4.00 - 11.00 K/uL [facility] RBC 2.83(L) 3.90 - 5.69 M/uL [facility] HGB 8.3(L) 12.4 - 17.3 g/dL [facility] Comment:Called to Purnima Corley and read back HCT 25.8(L) 37.0 - 51.0 % [facility] PLT 242 140 - 430 K/uL [facility] MCV 91.2 78.0 - 97.0 fL [facility] MCH 29.3 25.0 - 33.0 pg [facility] MCHC 32.2 32.0 - 36.0 g/dL [facility] RDW 19.0(H) 11.0 - 15.0 % [facility] MPV 10.5 8.4 - 12.8 fl [facility] 06/17/2022 6:35 AM EST 06/17/2022 8:33 AM EST Ila Holguin MD LAB BLOOD ORDERABLES Final Res ult Performing Organization Address City/[facility]/ZIP Co de Phone Number [address] [address] * (ABNORMAL) Comprehensive metabolic panel (06/17/2022 6:35 AM EST) SODIUM 139 133 - 146 mmol/L [facility] POTASSIUM 4.7 3.3 - 5.1 mmol/L [facility] CHLORIDE 107 96 - 108 mmol/L [facility] CO2 23 21 - 35 mmol/L [facility] BUN 45(H) 6 - 19 mg/dL [facility] CREATININE 2.20(H) 0.5 - 1.5 mg/dL [facility] GLUCOSE 94 70 - 99 mg/dL [facility] ALBUMIN 2.8(L) 3.9 - 4.8 g/dL [facility] TOTAL PROTEIN 6.1(L) 6.5 - 8.0 g/dL [facility] CALCIUM 11.8(H) 8.4 - 10.3 mg/dL [facility] ALKALINE PHOSPHATASE 94 39 - 117 U/L [facility] TOTAL BILIRUBIN 0.3 0.0 - 1.2 mg/dL [facility] AST 14 0 - 37 U/L [facility] ALT 7 0 - 40 U/L [facility] GLOBULIN 3.3 1 - 4.8 g/dL [facility] EGFR 30(L) >59 mL/min/1.7 3m2 [facility] Comment:Estimated glomerular filtration rate calculated using the CKD-EPI refit equation. ANION GAP 14 10 - 20 mmol/L [facility] 06/17/2022 6:35 AM EST 06/17/2022 8:33 AM EST Ila Holguin MD LAB BLOOD ORDERABLES Final Res ult [facility] [address] [place] [address] documented in this encounter Visit Diagnoses Diagnosis Atrial fibrillation, unspecified type- Primary documented in this encounter Care Teams Customer Service Advocate Relationship Specialty Start Date End Date Ila Holguin MD [address] [place] [address] PCP - General Internal Medicine 05/10/22 documented as of this encounter Additional Source Comments The information contained in this document represents components of the legal health record. It is not the complete legal health record.[facility]
--- OUTSIDE RECORDS SUMMARY | 2025-04-15 07:17 | XMS_ITS | Encounter Summary ---
Author Organization [facility] Address [address] [place] [address] [place] [address] Phone Care Team Providers Care Tugboat Pilot Name Role Phone Ila Holguin MD Primary Care Provider [phone] Encounter Details Date Type Department Care Team (Late st Contact Info) Description 05/10/2022 Procedure Pass [facility], Ct Scan - [facility] [address] [place] [address] Social History Tobacco Use Types Packs/Day Years [...] 4:06 PM EDT Adilson Castillo, FACUNDO * [place] Suicide Severity Rating Scale (Screener/Recent Self-Report) Question [...] documented as of this encounter Care Teams Tugboat Pilot Relationship Specialty Start Date End Date Ila Holguin MD [address] [place] [address] [email or web address] PCP - General Internal Medicine 05/10/22 documented as of this encounter Additional Source Comments The information contained in this document represents components of the legal health record. It is not the complete legal health record.[facility]
--- OUTSIDE RECORDS SUMMARY | 2025-04-15 07:17 | XMS_ITS | Clinical Summary ---
Author Organization [facility] Address [address] [place] [address] [place] [address] Phone Care Team Providers Care Production Underwriter Name Role Phone Ila Holguin MD Primary Care Provider [phone] Allergies No known active allergies Medications allopurinol [...] mouth nightly at bedtime. Active multivitamins-m inerals-folic yqck-qpuiqff-nx tein (COMPLETE SENIOR) 0.4 mg-300 mcg- 250 [...] Plan (05/22/2022 4:58 PM EST): Presents from [facility] after having had urinary frequency, suprapubic pain, and fatigue, increased confusion, febrile to 101F there, decreased blood pressure, with urinalysis consistent with UTI. Received 1 dose of ciprofloxacin at 8 PM at 05/18/2022. UC from [facility], Ecoli. Similar on culture taken on admit, BC all negative. Some resistance, but susceptible to rocephin. Same for today. Need to keep kidney function in mind when choosing to deescalate. ? To be answered is if this is acute cystitis or more complicated UTI, as he has had multiple. Requested the last 4 discharge summaries from [facility]. His daughter has a huge amount [...] is essentially been hospitalized or in a half-way facility since August it has not happened. She was wondering if we can have that done while here if it is something that is predisposing him to UTI Urine culture demonstrating [id number] colonies E. coli, resistant to amp, amp sulbactam -- On ceftriaxone, de-escalate to Ceftin -- Urology consult requested Acute kidney injury 05/11/2022 Assessment & Plan (05/22/2022 4:54 PM EST): Patient has had recent ESRD with hemodialysis treatments X8, at discharge to [facility] previously was at creatinine of 1.7 presents now with creatinine of 2.4 in setting of likely dehydration and complicated UTI. CRE is trending down with IVF and tx of UTI. If this trend continues, no need for imaging. Renal function improving with creatinine today 1.8 --Continue daily labs Assessment & Plan (05/11/2022 4:12 PM EDT): Recent KHADRA requiring hemodialysis during [facility] hospitalization. Per daughter, received 6 treatments. 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 HEMOGLOBIN A1C Routine 05/20/2022 6:27 AM EST from Last 3 Months or Most Recently Relevant to Health Maintenance Results * (ABNORMAL) Basic metabolic panel (06/27/2022 5:45 AM EST) SODIUM 136 133 - 146 mmol/L [facility] CHLORIDE 104 96 - 108 mmol/L [facility] POTASSIUM 4.8 3.3 - 5.1 mmol/L [facility] CO2 23 21 - 35 mmol/L [facility] BUN 58(H) 6 - 19 mg/dL [facility] CREATININE 2.20(H) 0.5 - 1.5 mg/dL [facility] GLUCOSE 99 70 - 99 mg/dL [facility] CALCIUM 12.3(H) 8.4 - 10.3 mg/dL [facility] EGFR 30(L) >59 mL/min/1.7 3m2 [facility] Comment:Estimated glomerular filtration rate calculated using the CKD-EPI refit equation. ANION GAP 14 10 - 20 mmol/L [facility] Blood 06/27/2022 5:45 AM EST 06/27/2022 8:59 AM EST us Ila Holguin MD LAB BLOOD ORDERABLES Final Res ult [facility] [address] [place] [address] * Hemoglobin A1c (05/20/2022 6:27 AM EST) HEMOGLOBIN A1C 5.4 4.3 - 5.8 % [facility] Blood 05/20/2022 6:27 AM EST 05/20/2022 6:44 AM EST us Joseph Christie USABILITY SPECIALIST LAB BLOOD ORDERABLES Fi nal Result [facility] [address] [place] [address] from Last 3 Months or Most Recently Relevant to Health Maintenance Insurance MED[place] [id number] [facility] MEDICARE SUPPLEMENT MEDICARE PART A & B [id number] [place] [address] MEDICARE SUPPLEMENT MEDICARE PART A & B [facility] MEDICARE SUPPLEMENT MEDICARE PART A & B Member Subscriber Plan / Payer (Ef fective 2008-Present) Name:Gume Kearns Member ID:[id number] Relation to Subscriber:Self Name:Gume Kearns Subscriber ID:[id number] Payer ID:[id number] Group ID:Not on file Type:Medicare Address: [employer] [address] [place] [address] [place] [address] MEDICARE SUPPLEMENT MEDICARE PART A & B [facility] MEDICARE SUPPLEMENT MEDICARE PART A & B [facility] MEDICARE SUPPLEMENT MEDICARE PART A & B [facility] MEDICARE SUPPLEMENT MEDICARE PART A & B [facility] MEDICARE SUPPLEMENT MEDICARE PART A & B [facility] MEDICARE SUPPLEMENT Advance Directives For more information, please contact: [phone] (9AM - 5PM [facility], Friday-Friday) Documents on File Type Date Recorded Patient Abe Teacher Expl anation [facility] 05/24/2022 1:55 PM Healthcare Proxy 05/14/2022 1:[facility] 05/12[facility]20[facility] 11:37 AM [facility] DO S 05/10/22 Healthcare Proxy 05/12/2022 11:36 AM [facility] 04/25/22 * DNR/DNI (No CPR/No Intubation) (Latest Code Status on File) Date Activated Date Inactivated Comments 05/19/2022 12:50 PM Question Answer Comments Code Status Confirmed With: PatientFamily * DNR/DNI (No CPR/No Intubation) Date Activated Date Inactivated Comments 05/11/2022 12:49 AM 05/19/2022 12:50 PM Question Answer Comments Code Status Confirmed With: Family Healthcare Agents on File Name Relationship Healthcare Agent [facility] p Communication Yulisa Hollis Daughter .Primary Health Care Agent (Proxy form on file) Care Teams Production Underwriter Relationship Specialty Start Date End Date Ila Holguin MD [address] [place] [address] [email or web address] PCP - General Internal Medicine 05/10/22 Additional Source Comments The information contained in this document represents components of the legal health record. It is not the complete legal health record.[facility]
--- OUTSIDE RECORDS SUMMARY | 2025-04-15 07:17 | XMS_ITS | Clinical Summary ---
Author Organization [facility] it Address [address] [place] [address] Care Team Providers Care Workforce Staffing Advisor Name Role Phone Unavailable Primary Care [...]
--- OUTSIDE RECORDS SUMMARY | 2025-04-15 07:17 | XMS_ITS | Clinical Summary ---
Author Organization [facility] Address [address] [place] [address] Phone Care Team Providers Care Sweeper Operator Highways Name Role Phone Vladimir Keys MD Primary Care Provider [phone] Allergies No known active allergies Medications acetaminophen [...] (09/18/2021): Added automatically from request for surgery [id number] Immunizations Immunization Administration Dates Next Due Influenza, [...] EDT Unless otherwise specified, test(s) performed at: [facility] [address] DRY PAN CHARGER: Chris Gomez M.D. For any questions, please call customer service at FREQUENCY:MONTHLY Resulting Agency Comment Specimen source: Blood Brian Saldaña MD LAB BLOOD BANK TEST ORDERABLES F inal Result APS EBONIE PVNMA from Last 3 Months or Most Recently Relevant to Health Maintenance Insurance Medicare [facility] Medicare [facility] Care Teams Sweeper Operator Highways Relationship Specialty Start Date End Date Vladimir Keys MD [address] [place] [address], [address] [place], [place] PCP - General 07/24/20
[2025-04-15 08:02] LABS: Alanine Aminotransferase 6 U/L (0-40); Albumin Level 3.1 g/dL (3.5-5.0); Alkaline Phosphatase 81 U/L (39-117); Anion Gap 10 (12-20); Aspartate Amino Transferase 27 U/L (5-37); Blood Urea Nitrogen 48 mg/dL (9-16); Calcium 9.9 mg/dL (8.4-10.2); Carbon Dioxide 26 mmol/L (22-29); Chloride 111 mmol/L (96-108); Estimated Glomerular Filt Rate 36; Potassium 4.5 mmol/L (3.3-5.1); Sodium 142 mmol/L (135-145); Total Protein 6.4 g/dL (6.5-8.0)
[2025-04-15 08:19] LABS: Thyroid Stimulating Hormone 4.43 uIU/mL (0.32-4.0)
== END 2025-04-15 07:14 | disposition home or self-care (01) ==
LOC: HO.HSH2E 07:13
PROVIDERS: Visit Provider Internal Medicine Endocrinology, Diabetes & Metabolism
DX: D64.9 Anemia, unspecified (principal)
CPT/HCPCS: 36415; 80053; 84443

== ENCOUNTER 2025-04-18 06:23 | Outpatient (REF) | payer MEDICARE, SELFPAY ==
--- OUTSIDE RECORDS SUMMARY | 2025-04-18 06:27 | XMS_ITS | Encounter Summary ---
Author Organization [facility] Address [address] [place] [address] [place] [address] Phone Care Team Providers Care Visual Merchandising Associate Name Role Phone Ila Holguin MD Primary Care Provider [phone] Encounter Details Date Type Department Care Team (Late st Contact Info) Description 05/10/2022 Procedure Pass [facility], Ct Scan - [facility] [address] [place] [address] Social History Tobacco Use Types Packs/Day Years [...] 4:06 PM EDT Adilson Castillo, FACUNDO * Frederica Suicide Severity Rating Scale (Screener/Recent Self-Report) Question [...] documented as of this encounter Care Teams Visual Merchandising Associate Relationship Specialty Start Date End Date Ila Holguin MD [address] [place] [address] [email or web address] PCP - General Internal Medicine 05/10/22 documented as of this encounter Additional Source Comments The information contained in this document represents components of the legal health record. It is not the complete legal health record.[facility]
--- OUTSIDE RECORDS SUMMARY | 2025-04-18 06:27 | XMS_ITS | Encounter Summary ---
Author Organization [facility] Address [address] [place] [address] Phone Care Team Providers Care Primer Inspector Name Role Phone Ila Holguin MD Primary Care Provider [phone] Encounter Details Date Type Department Care Team (Latest Contact Info) Description 06/17/2022 Transcribe Orders [facility] Specimen Processing [address] [place] [address] Ila Holguin MD [address] [place] [address] [email or web address] Atrial fibrillation, unspecified type (Primary Dx) Social [...] EST) PT 21.5(H) 10.2 - 12.9 sec [facility] INR 1.9(H) 0.9 - 1.1 [facility] Comment:Therapeutic range fo r oral Vitamin K antagonists: 2.0-3.5 06/17/2022 6:35 AM EST 06/17/2022 8:33 AM EST Ila Holguin MD LAB BLOOD ORDERABLES Final Res ult Performing Organization Address City/[facility] Co de Phone Number [address] [address] * (ABNORMAL) CBC (06/17/2022 6:35 AM EST) WBC 6.62 4.00 - 11.00 K/uL [facility] RBC 2.83(L) 3.90 - 5.69 M/uL [facility] HGB 8.3(L) 12.4 - 17.3 g/dL [facility] Comment:Called to Purnima Corley and read back HCT 25.8(L) 37.0 - 51.0 % [facility] PLT 242 140 - 430 K/uL [facility] MCV 91.2 78.0 - 97.0 fL [facility] MCH 29.3 25.0 - 33.0 pg [facility] MCHC 32.2 32.0 - 36.0 g/dL [facility] RDW 19.0(H) 11.0 - 15.0 % [facility] MPV 10.5 8.4 - 12.8 fl [facility] 06/17/2022 6:35 AM EST 06/17/2022 8:33 AM EST Ila Holguin MD LAB BLOOD ORDERABLES Final Res ult Performing Organization Address City/[facility]/ZIP Co de Phone Number [address] [address] * (ABNORMAL) Comprehensive metabolic panel (06/17/2022 6:35 AM EST) SODIUM 139 133 - 146 mmol/L [facility] POTASSIUM 4.7 3.3 - 5.1 mmol/L [facility] CHLORIDE 107 96 - 108 mmol/L [facility] CO2 23 21 - 35 mmol/L [facility] BUN 45(H) 6 - 19 mg/dL [facility] CREATININE 2.20(H) 0.5 - 1.5 mg/dL [facility] GLUCOSE 94 70 - 99 mg/dL [facility] ALBUMIN 2.8(L) 3.9 - 4.8 g/dL [facility] TOTAL PROTEIN 6.1(L) 6.5 - 8.0 g/dL [facility] CALCIUM 11.8(H) 8.4 - 10.3 mg/dL [facility] ALKALINE PHOSPHATASE 94 39 - 117 U/L [facility] TOTAL BILIRUBIN 0.3 0.0 - 1.2 mg/dL [facility] AST 14 0 - 37 U/L [facility] ALT 7 0 - 40 U/L [facility] GLOBULIN 3.3 1 - 4.8 g/dL [facility] EGFR 30(L) >59 mL/min/1.7 3m2 [facility] Comment:Estimated glomerular filtration rate calculated using the CKD-EPI refit equation. ANION GAP 14 10 - 20 mmol/L [facility] 06/17/2022 6:35 AM EST 06/17/2022 8:33 AM EST Ila Holguin MD LAB BLOOD ORDERABLES Final Res ult [facility] [address] [place] [address] documented in this encounter Visit Diagnoses Diagnosis Atrial fibrillation, unspecified type- Primary documented in this encounter Care Teams Primer Inspector Relationship Specialty Start Date End Date Ila Holguin MD [address] [place] [address] PCP - General Internal Medicine 05/10/22 documented as of this encounter Additional Source Comments The information contained in this document represents components of the legal health record. It is not the complete legal health record.[facility]
--- OUTSIDE RECORDS SUMMARY | 2025-04-18 06:27 | XMS_ITS | Clinical Summary ---
Author Organization [facility] Address [address] [place] [address] [place] [address] Phone Care Team Providers Care Automotive Parts Specialist Name Role Phone Ila Holguin MD Primary Care Provider [phone] Allergies No known active allergies Medications allopurinol [...] mouth nightly at bedtime. Active multivitamins-m inerals-folic ipog-fkibyzo-jv tein (COMPLETE SENIOR) 0.4 mg-300 mcg- 250 [...] Plan (05/22/2022 4:58 PM EST): Presents from [facility] after having had urinary frequency, suprapubic pain, and fatigue, increased confusion, febrile to 101F there, decreased blood pressure, with urinalysis consistent with UTI. Received 1 dose of ciprofloxacin at 8 PM at 05/18/2022. UC from [facility], Ecoli. Similar on culture taken on admit, BC all negative. Some resistance, but susceptible to rocephin. Same for today. Need to keep kidney function in mind when choosing to deescalate. ? To be answered is if this is acute cystitis or more complicated UTI, as he has had multiple. Requested the last 4 discharge summaries from [facility]. His daughter has a huge amount [...] is essentially been hospitalized or in a senior living facility since August it has not happened. She was wondering if we can have that done while here if it is something that is predisposing him to UTI Urine culture demonstrating [id number] colonies E. coli, resistant to amp, amp sulbactam -- On ceftriaxone, de-escalate to Ceftin -- Urology consult requested Acute kidney injury 05/11/2022 Assessment & Plan (05/22/2022 4:54 PM EST): Patient has had recent ESRD with hemodialysis treatments X8, at discharge to [facility] previously was at creatinine of 1.7 presents now with creatinine of 2.4 in setting of likely dehydration and complicated UTI. CRE is trending down with IVF and tx of UTI. If this trend continues, no need for imaging. Renal function improving with creatinine today 1.8 --Continue daily labs Assessment & Plan (05/11/2022 4:12 PM EDT): Recent KHADRA requiring hemodialysis during [facility] hospitalization. Per daughter, received 6 treatments. 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 HEMOGLOBIN A1C Routine 05/20/2022 6:27 AM EST from Last 3 Months or Most Recently Relevant to Health Maintenance Results * (ABNORMAL) Basic metabolic panel (06/27/2022 5:45 AM EST) SODIUM 136 133 - 146 mmol/L [facility] CHLORIDE 104 96 - 108 mmol/L [facility] POTASSIUM 4.8 3.3 - 5.1 mmol/L [facility] CO2 23 21 - 35 mmol/L [facility] BUN 58(H) 6 - 19 mg/dL [facility] CREATININE 2.20(H) 0.5 - 1.5 mg/dL [facility] GLUCOSE 99 70 - 99 mg/dL [facility] CALCIUM 12.3(H) 8.4 - 10.3 mg/dL [facility] EGFR 30(L) >59 mL/min/1.7 3m2 [facility] Comment:Estimated glomerular filtration rate calculated using the CKD-EPI refit equation. ANION GAP 14 10 - 20 mmol/L [facility] Blood 06/27/2022 5:45 AM EST 06/27/2022 8:59 AM EST us Ila Holguin MD LAB BLOOD ORDERABLES Final Res ult [facility] [address] [place] [address] * Hemoglobin A1c (05/20/2022 6:27 AM EST) HEMOGLOBIN A1C 5.4 4.3 - 5.8 % [facility] Blood 05/20/2022 6:27 AM EST 05/20/2022 6:44 AM EST us Joseph Christie SEGMENT PRODUCER LAB BLOOD ORDERABLES Fi nal Result [facility] [address] [place] [address] from Last 3 Months or Most Recently Relevant to Health Maintenance Insurance MED[place] [id number] [facility] MEDICARE SUPPLEMENT MEDICARE PART A & B [id number] [place] [address] MEDICARE SUPPLEMENT MEDICARE PART A & B [facility] MEDICARE SUPPLEMENT MEDICARE PART A & B Member Subscriber Plan / Payer (Ef fective 2008-Present) Name:Gume Kearns Member ID:[id number] Relation to Subscriber:Self Name:Gume Kearns Subscriber ID:[id number] Payer ID:[id number] Group ID:Not on file Type:Medicare Address: [employer] [address] [place] [address] [place] [address] MEDICARE SUPPLEMENT MEDICARE PART A & B [facility] MEDICARE SUPPLEMENT MEDICARE PART A & B [facility] MEDICARE SUPPLEMENT MEDICARE PART A & B [facility] MEDICARE SUPPLEMENT MEDICARE PART A & B [facility] MEDICARE SUPPLEMENT MEDICARE PART A & B [facility] MEDICARE SUPPLEMENT [facility] Address: [facility] [employer] [address] [place] [address] Advance Directives For more information, please contact: [phone] (9AM - 5PM [facility], Friday-Friday) Documents on File Type Date Recorded Patient Veneer Sheet Repairer Expl anation [facility] 05/24/2022 1:55 PM Healthcare Proxy 05/14/2022 1:26 PM [facility]/12[facility] 11:37 AM [facility] DO [...] Agents on File Name Relationship Healthcare Agent [facility] p Communication Yulisa Hollis Daughter .Primary Health Care Agent (Proxy form on file) Care Teams Automotive Parts Specialist Relationship Specialty Start Date End Date Ila Holguin MD [address] [place] [address] [email or web address] PCP - General Internal Medicine 05/10/22 Additional Source Comments The information contained in this document represents components of the legal health record. It is not the complete legal health record.[facility]
--- OUTSIDE RECORDS SUMMARY | 2025-04-18 06:27 | XMS_ITS | Clinical Summary ---
Author Organization [facility] it Address [address] [place] [address] Care Team Providers Care Power Equipment Technology Instructor Name Role Phone Unavailable Primary Care Provider [...]
--- OUTSIDE RECORDS SUMMARY | 2025-04-18 06:27 | XMS_ITS | Clinical Summary ---
Author Organization [facility] Address [address] [place] [address] Phone Care Team Providers Care Buttonhole Maker Hand Name Role Phone Vladimir Keys MD Primary Care Provider [phone] Allergies No known active allergies Medications acetaminophen [...] (09/18/2021): Added automatically from request for surgery [id number] Immunizations Immunization Administration Dates Next Due Influenza, Unspecified 04/24/2021,2019,03/14/2017,03/31/2016, 5 Pfizer SARS-COV-2 11/21/2020,10/29/2020 Family History Medical History Relation Comments Diabetes Father Heart disease Father [place] Stroke Mother Relation Status Comments Father Mother [...] EDT Unless otherwise specified, test(s) performed at: [facility] [address] TOILET ATTENDANT: Chris Gomez M.D. For any questions, please call customer service at FREQUENCY:MONTHLY Resulting Agency Comment Specimen source: Blood Brian Saldaña MD LAB BLOOD BANK TEST ORDERABLES F inal Result APS EBONIE PVNMA from Last 3 Months or Most Recently Relevant to Health Maintenance Insurance Medicare [facility] Medicare [facility] Care Teams Buttonhole Maker Hand Relationship Specialty Start Date End Date Vladimir Keys MD [address] [place] [address], [address] [place], [place] PCP - General 07/24/20
[2025-04-18 06:28] LABS: MANUAL DIFF FLAG NO
[2025-04-18 07:24] LABS: Hematocrit 29.4 % (42.0-52.0); Hemoglobin 9.3 g/dl (14.0-18.0); Imm Gran Abs Auto 0.02 X10*3/uL (0.00-0.03); Imm Gran Pct Auto 0.3 % (0.0-0.4); Lymphocytes Absolute Auto 1.0 X10*3/uL (1.2-4.9); Mean Corpuscular HGB Conc 31.6 g/dl (31.0-36.0); Mean Corpuscular Hemoglobin 31.7 pg (27.0-33.0); Mean Corpuscular Volume 100.3 fL (80.0-98.0); NRBC Abs Auto 0.000 X10*3/uL (0.0-0.012); NRBC Pct Auto 0.0 /100WBC (0.0-0.2); Platelet Count 166 X10*3/uL (160-400); Red Blood Count 2.93 X10*6/uL (4.60-5.80); White Blood Count 6.0 X10*3/uL (4.8-10.8)
== END 2025-04-18 06:24 | disposition home or self-care (01) ==
LOC: HO.HSH2E 06:23
PROVIDERS: Internal Medicine Nephrology; Visit Provider Internal Medicine
DX: N18.4 Chronic kidney disease, stage 4 (severe) (principal); D63.1 Anemia in chronic kidney disease
CPT/HCPCS: 36415; 85025

== ENCOUNTER 2025-04-25 05:58 | Outpatient (REF) | payer MEDICARE, SELFPAY ==
--- OUTSIDE RECORDS SUMMARY | 2025-04-25 06:01 | XMS_ITS | Encounter Summary ---
Author Organization [facility] Address [address] [place] [address] Phone Care Team Providers Care Car Hostler Name Role Phone Ila Holguin MD Primary Care Provider [phone] Encounter Details Date Type Department Care Team (Latest Contact Info) Description 06/17/2022 Transcribe Orders [facility] Specimen Processing [address] [place] [address] Ila Holguin MD [address] [place] [address] [email or web address] Atrial fibrillation, unspecified type (Primary Dx) Social [...] EST) PT 21.5(H) 10.2 - 12.9 sec [facility] INR 1.9(H) 0.9 - 1.1 [facility] Comment:Therapeutic range fo r oral Vitamin K antagonists: 2.0-3.5 06/17/2022 6:35 AM EST 06/17/2022 8:33 AM EST Ila Holguin MD LAB BLOOD ORDERABLES Final Res ult Performing Organization Address City/[facility] Co de Phone Number [address] [address] * (ABNORMAL) CBC (06/17/2022 6:35 AM EST) WBC 6.62 4.00 - 11.00 K/uL [facility] RBC 2.83(L) 3.90 - 5.69 M/uL [facility] HGB 8.3(L) 12.4 - 17.3 g/dL [facility] Comment:Called to Purnima Corley and read back HCT 25.8(L) 37.0 - 51.0 % [facility] PLT 242 140 - 430 K/uL [facility] MCV 91.2 78.0 - 97.0 fL [facility] MCH 29.3 25.0 - 33.0 pg [facility] MCHC 32.2 32.0 - 36.0 g/dL [facility] RDW 19.0(H) 11.0 - 15.0 % [facility] MPV 10.5 8.4 - 12.8 fl [facility] 06/17/2022 6:35 AM EST 06/17/2022 8:33 AM EST Ila Holguin MD LAB BLOOD ORDERABLES Final Res ult Performing Organization Address City/[facility]/ZIP Co de Phone Number [address] [address] * (ABNORMAL) Comprehensive metabolic panel (06/17/2022 6:35 AM EST) SODIUM 139 133 - 146 mmol/L [facility] POTASSIUM 4.7 3.3 - 5.1 mmol/L [facility] CHLORIDE 107 96 - 108 mmol/L [facility] CO2 23 21 - 35 mmol/L [facility] BUN 45(H) 6 - 19 mg/dL [facility] CREATININE 2.20(H) 0.5 - 1.5 mg/dL [facility] GLUCOSE 94 70 - 99 mg/dL [facility] ALBUMIN 2.8(L) 3.9 - 4.8 g/dL [facility] TOTAL PROTEIN 6.1(L) 6.5 - 8.0 g/dL [facility] CALCIUM 11.8(H) 8.4 - 10.3 mg/dL [facility] ALKALINE PHOSPHATASE 94 39 - 117 U/L [facility] TOTAL BILIRUBIN 0.3 0.0 - 1.2 mg/dL [facility] AST 14 0 - 37 U/L [facility] ALT 7 0 - 40 U/L [facility] GLOBULIN 3.3 1 - 4.8 g/dL [facility] EGFR 30(L) >59 mL/min/1.7 3m2 [facility] Comment:Estimated glomerular filtration rate calculated using the CKD-EPI refit equation. ANION GAP 14 10 - 20 mmol/L [facility] 06/17/2022 6:35 AM EST 06/17/2022 8:33 AM EST Ila Holguin MD LAB BLOOD ORDERABLES Final Res ult [facility] [address] [place] [address] documented in this encounter Visit Diagnoses Diagnosis Atrial fibrillation, unspecified type- Primary documented in this encounter Care Teams Car Hostler Relationship Specialty Start Date End Date Ila Holguin MD [address] [place] [address] PCP - General Internal Medicine 05/10/22 documented as of this encounter Additional Source Comments The information contained in this document represents components of the legal health record. It is not the complete legal health record.[facility]
--- OUTSIDE RECORDS SUMMARY | 2025-04-25 06:01 | XMS_ITS | Clinical Summary ---
Author Organization [facility] it Address [address] [place] [address] Care Team Providers Care Drop Wire Hanger Name Role Phone Unavailable Primary Care Provider [...]
--- OUTSIDE RECORDS SUMMARY | 2025-04-25 06:01 | XMS_ITS | Clinical Summary ---
Author Organization [facility] Address [address] [place] [address] Phone Care Team Providers Care Glass Cleaner Name Role Phone Vladimir Keys MD Primary Care Provider [phone] Allergies No known active allergies Medications acetaminophen [...] (09/18/2021): Added automatically from request for surgery [id number] Immunizations Immunization Administration Dates Next Due Influenza, Unspecified 04/24/2021,2019,03/14/2017,03/31/2016, 5 Pfizer SARS-COV-2 11/21/2020,10/29/2020 Family History Medical History Relation Comments Diabetes Father Heart disease Father [place] Stroke Mother Relation Status Comments Father Mother [...] EDT Unless otherwise specified, test(s) performed at: [facility] [address] CARTON MARKER MACHINE: Chris Gomez M.D. For any questions, please call customer service at FREQUENCY:MONTHLY Resulting Agency Comment Specimen source: Blood Brian Saldaña MD LAB BLOOD BANK TEST ORDERABLES F inal Result APS EBONIE PVNMA from Last 3 Months or Most Recently Relevant to Health Maintenance Insurance Medicare [facility] Care Teams Glass Cleaner Relationship Specialty Start Date End Date Vladimir Keys MD [address] [place] [address], [address] [place], [place] PCP - General 07/24/20
--- OUTSIDE RECORDS SUMMARY | 2025-04-25 06:01 | XMS_ITS | Clinical Summary ---
Author Organization [facility] Address [address] [place] [address] [place] [address] Phone Care Team Providers Care Environmental Services Project Manager Name Role Phone Ila Holguin MD Primary Care Provider [phone] Allergies No known active allergies Medications allopurinol [...] mouth nightly at bedtime. Active multivitamins-m inerals-folic swup-rtvmcrh-mc tein (COMPLETE SENIOR) 0.4 mg-300 mcg- 250 [...] Plan (05/22/2022 4:58 PM EST): Presents from [facility] after having had urinary frequency, suprapubic pain, and fatigue, increased confusion, febrile to 101F there, decreased blood pressure, with urinalysis consistent with UTI. Received 1 dose of ciprofloxacin at 8 PM at 05/18/2022. UC from [facility], Ecoli. Similar on culture taken on admit, BC all negative. Some resistance, but susceptible to rocephin. Same for today. Need to keep kidney function in mind when choosing to deescalate. ? To be answered is if this is acute cystitis or more complicated UTI, as he has had multiple. Requested the last 4 discharge summaries from [facility]. His daughter has a huge amount [...] predisposing him to UTI Urine culture demonstrating [id number] colonies E. coli, resistant to amp, amp sulbactam -- On ceftriaxone, de-escalate to Ceftin -- Urology consult requested Acute kidney injury 05/11/2022 Assessment & Plan (05/22/2022 4:54 PM EST): Patient has had recent ESRD with hemodialysis treatments X8, at discharge to [facility] previously was at creatinine of 1.7 presents now with creatinine of 2.4 in setting of likely dehydration and complicated UTI. CRE is trending down with IVF and tx of UTI. If this trend continues, no need for imaging. Renal function improving with creatinine today 1.8 --Continue daily labs Assessment & Plan (05/11/2022 4:12 PM EDT): Recent KHADRA requiring hemodialysis during [facility] hospitalization. Per daughter, received 6 treatments. [...] delerium as well documented in notes from [facility] where this was ongoing and not [...] 4:10 PM EDT): On presentation 04/22 at [facility] Completed daptomycin on 05/10 --Due for [...] skin thickness with weeping and oozing Per [facility] notes: Recommend Aquacel Ag covered by [...] Routine 06/27/2022 5:45 AM EST Atherosclerosis of [place] coronary artery without angina pectoris, unspecified whether round valley or transplanted heart 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 HEMOGLOBIN A1C Routine 05/20/2022 6:27 AM EST from Last 3 Months or Most Recently Relevant to Health Maintenance Results * (ABNORMAL) Basic metabolic panel (06/27/2022 5:45 AM EST) SODIUM 136 133 - 146 mmol/L [facility] CHLORIDE 104 96 - 108 mmol/L [facility] POTASSIUM 4.8 3.3 - 5.1 mmol/L [facility] CO2 23 21 - 35 mmol/L [facility] BUN 58(H) 6 - 19 mg/dL [facility] CREATININE 2.20(H) 0.5 - 1.5 mg/dL [facility] GLUCOSE 99 70 - 99 mg/dL [facility] CALCIUM 12.3(H) 8.4 - 10.3 mg/dL [facility] EGFR 30(L) >59 mL/min/1.7 3m2 [facility] Comment:Estimated glomerular filtration rate calculated using the CKD-EPI refit equation. ANION GAP 14 10 - 20 mmol/L [facility] Blood 06/27/2022 5:45 AM EST 06/27/2022 8:59 AM EST us Ila Holguin MD LAB BLOOD ORDERABLES Final Res ult [facility] [address] [place] [address] * Hemoglobin A1c (05/20/2022 6:27 AM EST) HEMOGLOBIN A1C 5.4 4.3 - 5.8 % [facility] Blood 05/20/2022 6:27 AM EST 05/20/2022 6:44 AM EST us Joseph Christie STEEL POST INSTALLER SUPERVISOR LAB BLOOD ORDERABLES Fi nal Result [facility] [address] [place] [address] from Last 3 Months or Most Recently Relevant to Health Maintenance Insurance [place] [id number] [facility] MEDICARE SUPPLEMENT MEDICARE PART A & B MEDICARE SUPPLEMENT MEDICARE PART A & B [facility] MEDICARE SUPPLEMENT MEDICARE PART A & B MEDICARE SUPPLEMENT MEDICARE PART A & B MEDICARE SUPPLEMENT MEDICARE PART A & B [facility] MEDICARE SUPPLEMENT MEDICARE PART A & B Member Subscriber Plan / Payer (Ef fective 2008-Present) Name:Urmila Gume Member ID:[id number] Relation to Subscriber:Self Name:Gume Kearns Subscriber ID:[id number] Payer ID:[id number] Group ID:Not on file Type:Medicare Address: [place] [address] [place] [id number] [facility] MEDICARE SUPPLEMENT MEDICARE PART A & B [facility] MEDICARE SUPPLEMENT MEDICARE PART A & B [facility] MEDICARE SUPPLEMENT Advance Directives For more information, please contact: [phone] (9AM - 5PM [facility], Friday-Friday) Documents on File Type Date Recorded Patient Film Processing Shift Supervisor Expl anation [facility]OLST 05/24/2022 1:55 PM Healthcare Proxy 05/14/2022 1:26 PM [facility] 05/12/2022 11:37 AM [facility]OLST DO S 05/10/22 Healthcare Proxy 05/12/2022 11:36 AM ANNY ONTIVEROS [facility] 04/25/22 * DNR/DNI (No CPR/No Intubation) [...] Agent (Proxy form on file) Care Teams Environmental Services Project Manager Relationship Specialty Start Date End Date Ila Holguin MD [address] [place] [address] [email or web address] PCP - General Internal Medicine 05/10/22 Additional Source Comments The information contained in this document represents components of the legal health record. It is not the complete legal health record.[facility]
--- OUTSIDE RECORDS SUMMARY | 2025-04-25 06:01 | XMS_ITS | Encounter Summary ---
Author Organization [facility] Address [address] [place] [address] [place] [address] Phone Care Team Providers Care Tower Erector Helper Name Role Phone Ila Holguin MD Primary Care Provider [phone] Encounter Details Date Type Department Care Team (Late st Contact Info) Description 05/10/2022 Procedure Pass [facility], Ct Scan - [facility] [address] [place] [address] Social History Tobacco Use Types Packs/Day Years [...] 4:06 PM EDT Adilson Castillo, FACUNDO * [place] Suicide Severity Rating Scale (Screener/Recent Self-Report) Question [...] documented as of this encounter Care Teams Tower Erector Helper Relationship Specialty Start Date End Date Ila Holguin MD [address] [place] [address] [email or web address] PCP - General Internal Medicine 05/10/22 documented as of this encounter Additional Source Comments The information contained in this document represents components of the legal health record. It is not the complete legal health record.[facility]
[2025-04-25 06:13] LABS: INTERNATIONAL NORM RATIO 2.1 (0.9-1.1); Prothrombin Time 24.0 SEC (10.9-12.4)
== END 2025-04-25 05:59 | disposition home or self-care (01) ==
LOC: HO.HSH2E 05:58
PROVIDERS: Visit Provider Internal Medicine Endocrinology, Diabetes & Metabolism
DX: D64.9 Anemia, unspecified (principal)
CPT/HCPCS: 36415; 85610

== ENCOUNTER 2025-04-29 10:12 | Outpatient (AMB) | payer MEDICARE, SELFPAY ==
--- NOTE | 2025-04-29 10:14 | HO.NEPHOV_ITS ---
Vital Signs 04/29/25 10:21 Height 5 ft 11 in Weight 280 lb BMI 39.0 BP 144/60 H Blood Pressure Location Rt brachial Position Sitting Pulse 74 Pulse Source Pulse Oximeter Pulse Oximetry (%) 99 Oxygen Delivery Method Room Air Intake Visit Reasons: follow up-Conf Spiritual Counselor Required: No Accompanied by: Daughter Allergies ceftriaxone Allergy (Verified 04/29/25 10:21) Unknown HPI Comments Details: I had the pleasure of seeing Gume who was accompanied by his family for his advanced CKD as well as anemia of chronic kidney disease on a backdrop of Hypertension and DM. He has H/O KHADRA needing renal replacement in the past. He has no uremic symptoms or hypoglycemias. He has H/O BPH and is on finasteride. His appetite is good. He denies nausea, vomiting, diarrhea, chest pain, hemoptysis, hemetemesis, melena, recurrent sinusitis or renal calculi. He does not have any orthostatic symptoms. He does not take NSAID's regularly. He does not have any new bone or back pain. He recently received 20 K units of Procrit [place] [facility] [facility] with improvement in Hb but still not at goal . His appetite has improved. [facility] Medical History Hx of decubitus ulcer Former smoker Peripheral neuropathy Compartment syndrome of right lower extremity Osteoarthritis Pancreatic cyst Gout ASHD (arteriosclerotic heart disease) Aortic stenosis Chronic kidney disease Chronic combined systolic and diastolic CHF (congestive heart failure) Nonrheumatic aortic (valve) stenosis Anemia Endocarditis Afib Obesity Hyperlipidemia Murmur HTN (hypertension) Neuropathy Diabetes Surgical History Hx of ankle fusion History of total bilateral knee replacement Hx of aortic valve replacement Social History Patient Tobacco Use Status: Former Tobacco user Review of Systems Const All systems reviewed & are unremarkable except as noted in HPI and below Physical Exam Vital Signs: Last Vital Signs Pulse 74 04/29/25 10:21 BP 144/60 H 04/29/25 10:21 Pulse Ox 99 04/29/25 10:21 Oxygen Delivery Method Room Air 04/29/25 10:21 BMI result Body Mass Index 39.0 Const General: comfortable and no acute distress Orientation/consciousness: patient oriented x3 HEENT Head: Yes normocephalic Mouth: Normal oral and palatal mucosa present Eyes EOM: EOMs intact bilaterally Neck Neck: Yes supple Resp Auscultation: clear to auscultation bilaterally Cardio Jugular venous distension: no JVD Rate: regular rate GI Palpation (GI): Soft to palpation Auscultation: normal bowel sounds General: Yes no CVA tenderness Back/Spine/Pelvis Back: no CVA tenderness Skin General skin exam: no rashes or lesions noted Neuro General: patient oriented x3 and moves all extremities Extrem General: Yes no pedal edema Results Reviewed Nephrology Results: Hgb, (14.0-18.0) 9.3 g/dl L 04/18/25 WBC, (4.8-10.8) 6.0 X10*3/uL 04/18/25 Plt Count, (160-400) 166 X10*3/uL 04/18/25 Sodium, (135-145) 142 mmol/L 04/15/25 Potassium, (3.3-5.1) 4.5 mmol/L 04/15/25 Chloride, (96-108) 111 mmol/L H 04/15/25 Carbon Dioxide, (22-29) 26 mmol/L 04/15/25 BUN, (9-16) 48 mg/dL H 04/15/25 Creatinine, (0.5-1.4) 1.81 mg/dL H 04/15/25 Calcium, (8.4-10.2) 9.9 mg/dL 04/15/25 Urine Protein, (Neg-Trace) Trace mg/dL 03/29/25 Assessment & Plan Assessment & Plan (1) HTN (hypertension): Code(s): I10 - Essential (primary) hypertension Category: Medical Qualifiers: Hypertension type: primary hypertension Qualified Code(s): I10 - Essential (primary) hypertension (2) CKD (chronic kidney disease) stage 4, GFR 15-29 ml/min: Code(s): N18.4 - Chronic kidney disease, stage 4 (severe) Category: Medical (3) Anemia due to stage 4 chronic kidney disease: Code(s): N18.4 - Chronic kidney disease, stage 4 (severe); D63.1 - Anemia in chronic kidney disease Category: Medical Plan 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 He had KHADRA on CKD needing renal replacement in the past. He is off HD for a long time. His renal functions are better . His UO is good. His BP is well controlled. He does not need a renal diet except for low sodium . He should get CBC checked every 3 weeks and should receive 69556 of Procrit every 3 weeks to keep his Hb close to 11 G/dl. He should also be started on Vitamin D 2000 U daily. He maintains good hydration and does not take NSAID's regularly. He will be a candidate for SGLT2 i and GLP 1 agonist if needed. He needs TFT's checked given weight gain . Answered all questions. Follow up given Orders: Orders IRON PROFILE 4 Months D63.1 - Anemia in chronic kidney disease, I10 - Essential (primary) hypertension, N18.4 - Chronic kidney disease, stage 4 (severe) Creatinine 4 Months D63.1 - Anemia in chronic kidney disease, I10 - Essential (primary) hypertension, N18.4 - Chronic kidney disease, stage 4 (severe) Complete Blood Count Auto Diff 4 Months D63.1 - Anemia in chronic kidney disease, I10 - Essential (primary) hypertension, N18.4 - Chronic kidney disease, stage 4 (severe) Ferritin 4 Months D63.1 - Anemia in chronic kidney disease, I10 - Essential (primary) hypertension, N18.4 - Chronic kidney disease, stage 4 (severe) Electrolytes 4 Months D63.1 - Anemia in chronic kidney disease, I10 - Essential (primary) hypertension, N18.4 - Chronic kidney disease, stage 4 (severe) Calcium 4 Months D63.1 - Anemia in chronic kidney disease, I10 - Essential (primary) hypertension, N18.4 - Chronic kidney disease, stage 4 (severe) Blood Urea Nitrogen 4 Months D63.1 - Anemia in chronic kidney disease, I10 - Essential (primary) hypertension, N18.4 - Chronic kidney disease, stage 4 (severe) Coding Level of Care Code Est Pt Level 4 (11672) Diagnoses Primary hypertension I10 Hypertension type: primary hypertension CKD (chronic kidney disease) stage 4, GFR 15-29 ml/min N18.4 Anemia due to stage 4 chronic kidney disease N18.4; D63.1
[2025-04-29 10:21] VITALS: BP 144/60; PULSE 74; O2SAT 99; BMI 39.0
--- OUTSIDE RECORDS SUMMARY | 2025-04-29 12:02 | XMS_ITS | Encounter Summary ---
Author Organization [facility] Address [address] [place] [address] Phone Care Team Providers Care Men'S Basketball Coach Name Role Phone Ila Holguin MD Primary Care Provider [phone] Encounter Details Date Type Department Care Team (Latest Contact Info) Description 06/17/2022 Transcribe Orders [facility] Specimen Processing [address] [place] [address] Ila Holguin MD [address] [place] [address] [email or web address] Atrial fibrillation, unspecified type [...] EST) PT 21.5(H) 10.2 - 12.9 sec INR 1.9(H) 0.9 - 1.1 Comment:Therapeutic range fo r oral Vitamin K antagonists: 2.0-3.5 06/17/2022 6:35 AM EST 06/17/2022 8:33 AM EST Ila Holguin MD LAB BLOOD ORDERABLES Final Res ult Performing Organization Address City/[facility] Co de Phone Number [address] [address] * (ABNORMAL) CBC (06/17/2022 6:35 AM EST) WBC 6.62 4.00 - 11.00 K/uL RBC 2.83(L) 3.90 - 5.69 M/uL HGB 8.3(L) 12.4 - 17.3 g/dL Comment:Called to Purnima Corley and read back HCT 25.8(L) 37.0 - 51.0 % PLT 242 140 - 430 K/uL MCV 91.2 78.0 - 97.0 fL MCH 29.3 25.0 - 33.0 pg MCHC 32.2 32.0 - 36.0 g/dL RDW 19.0(H) 11.0 - 15.0 % MPV 10.5 8.4 - 12.8 fl 06/17/2022 6:35 AM EST 06/17/2022 8:33 AM EST Ila Holguin MD LAB BLOOD ORDERABLES Final Res ult Performing Organization Address City/[facility]/ZIP Co de Phone Number [address] [address] * (ABNORMAL) Comprehensive metabolic panel (06/17/2022 6:35 AM EST) SODIUM 139 133 - 146 mmol/L POTASSIUM 4.7 3.3 - 5.1 mmol/L CHLORIDE 107 96 - 108 mmol/L CO2 23 21 - 35 mmol/L BUN 45(H) 6 - 19 mg/dL CREATININE 2.20(H) 0.5 - 1.5 mg/dL GLUCOSE 94 70 - 99 mg/dL ALBUMIN 2.8(L) 3.9 - 4.8 g/dL TOTAL PROTEIN 6.1(L) 6.5 - 8.0 g/dL CALCIUM 11.8(H) 8.4 - 10.3 mg/dL ALKALINE PHOSPHATASE 94 39 - 117 U/L TOTAL BILIRUBIN 0.3 0.0 - 1.2 mg/dL AST 14 0 - 37 U/L ALT 7 0 - 40 U/L GLOBULIN 3.3 1 - 4.8 g/dL EGFR 30(L) >59 mL/min/1.7 3m2 Comment:Estimated glomerular filtration rate calculated using the CKD-EPI refit equation. ANION GAP 14 10 - 20 mmol/L 06/17/2022 6:35 AM EST 06/17/2022 8:33 AM EST Ila Holguin MD LAB BLOOD ORDERABLES Final Res ult [address] [place] [address] documented in this encounter Visit Diagnoses Diagnosis Atrial fibrillation, unspecified type- Primary documented in this encounter Care Teams Men'S Basketball Coach Relationship Specialty Start Date End Date Ila Holguin MD [address] [place] [address] PCP - General Internal Medicine 05/10/22 documented as of this encounter Additional Source Comments The information contained in this document represents components of the legal health record. It is not the complete legal health record.[facility]
--- OUTSIDE RECORDS SUMMARY | 2025-04-29 12:02 | XMS_ITS | Clinical Summary ---
Author Organization [facility] Address [address] [place] [address] Phone Care Team Providers Care Accounting Manager Name Role Phone Vladimir Keys MD Primary Care Provider [phone] Allergies No known active allergies Medications acetaminophen [...] (09/18/2021): Added automatically from request for surgery [id number] Immunizations Immunization Administration Dates Next Due Influenza, Unspecified 04/24/2021,2019,03/14/2017,03/31/2016, 5 Pfizer SARS-COV-2 11/21/2020,10/29/2020 Family History Medical History Relation Comments Diabetes Father Heart disease Father [place] Stroke Mother Relation Status Comments Father Mother [...] EDT Unless otherwise specified, test(s) performed at: [facility] [address] HOSPITAL ORDERLY: Chris Gomez M.D. For any questions, please call customer service at FREQUENCY:MONTHLY Resulting Agency Comment Specimen source: Blood Brian Saldaña MD LAB BLOOD BANK TEST ORDERABLES F inal Result APS EBONIE PVNMA from Last 3 Months or Most Recently Relevant to Health Maintenance Insurance Medicare [facility] Medicare [facility] Care Teams Accounting Manager Relationship Specialty Start Date End Date Vladimir Keys MD [address] [place] [address], [address] [place], [place] PCP - General 07/24/20
--- OUTSIDE RECORDS SUMMARY | 2025-04-29 12:02 | XMS_ITS | Encounter Summary ---
Author Organization [facility] Address [address] [place] [address] [place] [address] Phone Care Team Providers Care Quarter Seamer Name Role Phone Ila Holguin MD Primary Care Provider [phone] Encounter Details Date Type Department Care Team (Late st Contact Info) Description 05/10/2022 Procedure Pass [facility], Ct Scan - [facility] [address] [place] [address] Social History Tobacco Use Types Packs/Day Years [...] 4:06 PM EDT Adilson Castillo, FACUNDO * [place] Suicide Severity Rating Scale (Screener/Recent Self-Report) Question [...] documented as of this encounter Care Teams Quarter Seamer Relationship Specialty Start Date End Date Ila Holguin MD [address] [place] [address] [email or web address] PCP - General Internal Medicine 05/10/22 documented as of this encounter Additional Source Comments The information contained in this document represents components of the legal health record. It is not the complete legal health record.[facility]
--- OUTSIDE RECORDS SUMMARY | 2025-04-29 12:02 | XMS_ITS | Clinical Summary ---
Author Organization [facility] it Address [address] [place] [address] Care Team Providers Care Room Inspector Name Role Phone Unavailable Primary Care [...]
--- OUTSIDE RECORDS SUMMARY | 2025-04-29 12:02 | XMS_ITS | Clinical Summary ---
Author Organization [facility] Address [address] [place] [address] [place] [phone] Phone Care Team Providers Care Coil Shaper Name Role Phone Ila Holguin MD Primary Care Provider [phone] Allergies No known active allergies Medications allopurinol [...] mouth nightly at bedtime. Active multivitamins-m inerals-folic rgvu-bwhpssu-ik tein (COMPLETE SENIOR) 0.4 mg-300 mcg- 250 [...] (05/22/2022 4:58 PM EST): Presents from [facility] after having had urinary frequency, suprapubic pain, and fatigue, increased confusion, febrile to 101F there, decreased blood pressure, with urinalysis consistent with UTI. Received 1 dose of ciprofloxacin at 8 PM at 05/18/2022. UC from [facility], Ecoli. Similar on culture taken on admit, BC all negative. Some resistance, but susceptible to rocephin. Same for today. Need to keep kidney function in mind when choosing to deescalate. ? To be answered is if this is acute cystitis or more complicated UTI, as he has had multiple. Requested the last 4 discharge summaries from [facility]. His daughter has a huge amount [...] predisposing him to UTI Urine culture demonstrating [id number] colonies E. coli, resistant to amp, amp sulbactam -- On ceftriaxone, de-escalate to Ceftin -- Urology consult requested Acute kidney injury 05/11/2022 Assessment & Plan (05/22/2022 4:54 PM EST): Patient has had recent ESRD with hemodialysis treatments X8, at discharge to [facility] previously was at creatinine of 1.7 presents now with creatinine of 2.4 in setting of likely dehydration and complicated UTI. CRE is trending down with IVF and tx of UTI. If this trend continues, no need for imaging. Renal function improving with creatinine today 1.8 --Continue daily labs Assessment & Plan (05/11/2022 4:12 PM EDT): Recent KHADRA requiring hemodialysis during [facility] hospitalization. Per daughter, received 6 treatments. 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 HEMOGLOBIN A1C Routine 05/20/2022 6:27 AM EST from Last 3 Months or Most Recently Relevant to Health Maintenance Results * (ABNORMAL) Basic metabolic panel (06/27/2022 5:45 AM EST) SODIUM 136 133 - 146 mmol/L [facility] CHLORIDE 104 96 - 108 mmol/L [facility] POTASSIUM 4.8 3.3 - 5.1 mmol/L [facility] CO2 23 21 - 35 mmol/L [facility] BUN 58(H) 6 - 19 mg/dL [facility] CREATININE 2.20(H) 0.5 - 1.5 mg/dL [facility] GLUCOSE 99 70 - 99 mg/dL [facility] CALCIUM 12.3(H) 8.4 - 10.3 mg/dL [facility] EGFR 30(L) >59 mL/min/1.7 3m2 [facility] Comment:Estimated glomerular filtration rate calculated using the CKD-EPI refit equation. ANION GAP 14 10 - 20 mmol/L [facility] Blood 06/27/2022 5:45 AM EST 06/27/2022 8:59 AM EST us Ila Holguin MD LAB BLOOD ORDERABLES Final Res ult [facility] [address] [place] [address] * Hemoglobin A1c (05/20/2022 6:27 AM EST) HEMOGLOBIN A1C 5.4 4.3 - 5.8 % [facility] Blood 05/20/2022 6:27 AM EST 05/20/2022 6:44 AM EST us Joseph Christie MULTIMEDIA ASSISTANT LAB BLOOD ORDERABLES Fi nal Result [facility] [address] [place] [address] from Last 3 Months or Most Recently Relevant to Health Maintenance Insurance MEDICARE PART A & [place] [id number] [facility] MEDICARE SUPPLEMENT MEDICARE PART A & B MEDICARE SUPPLEMENT MEDICARE PART A & B [facility] MEDICARE SUPPLEMENT MEDICARE PART A & B MEDICARE SUPPLEMENT MEDICARE PART A & B MEDICARE SUPPLEMENT MEDICARE PART A & B [facility] MEDICARE SUPPLEMENT MEDICARE PART A & B Member Subscriber Plan / Payer (Ef fective 2008-Present) Name:Urmila Gume Member ID:[id number] Relation to Subscriber:Self Name:Gume Kearns Subscriber ID:[id number] Payer ID:[id number] Group ID:Not on file Type:Medicare Address: [employer] [address] [place] [id number] [facility] MEDICARE SUPPLEMENT MEDICARE PART A & B [facility] MEDICARE SUPPLEMENT MEDICARE PART A & B [facility] MEDICARE SUPPLEMENT Advance Directives For more information, please contact: [phone] (9AM - 5PM [facility], Friday-Friday) Documents on File Type Date Recorded Patient Purchasing Contracting Clerk Expl anation MOLST 05/24/2022 1:55 PM Healthcare Proxy 05/14/2022 1:26 PM MOLST 05/12/2022 11:37 AM MOLST DO S 05/10/22 Healthcare Proxy 05/12/2022 11:36 AM [facility] 04/25/22 * DNR/DNI (No CPR/No Intubation) [...] Agent (Proxy form on file) Care Teams Coil Shaper Relationship Specialty Start Date End Date Ila Holguin MD [address] [place] [address] [email or web address] PCP - General Internal Medicine 05/10/22 Additional Source Comments The information contained in this document represents components of the legal health record. It is not the complete legal health record.[facility]
== END 2025-04-29 10:50 | disposition home or self-care (01) ==
LOC: HO.HKA 10:12
PROVIDERS: PCP Internal Medicine Endocrinology, Diabetes & Metabolism; Visit Provider Internal Medicine Nephrology
DX: I12.9 Hypertensive chronic kidney disease with stage 1 through stage 4 chronic kidney disease, or unspecified chronic kidney disease (principal); N18.4 Chronic kidney disease, stage 4 (severe); D63.1 Anemia in chronic kidney disease
CPT/HCPCS: 99214

== ENCOUNTER → 2025-04-29 10:12 | Outpatient (BNVA) | payer MEDICARE, SELFPAY | PROVIDERS: PCP Internal Medicine Endocrinology, Diabetes & Metabolism; Visit Provider Internal Medicine Nephrology | DX: E11.22 Type 2 diabetes mellitus with diabetic chronic kidney disease (principal); I12.9 Hypertensive chronic kidney disease with stage 1 through stage 4 chronic kidney disease, or unspecified chronic kidney disease; N18.4 Chronic kidney disease, stage 4 (severe); D63.1 Anemia in chronic kidney disease | CPT/HCPCS: 99212 ==

== ENCOUNTER 2025-05-09 06:35 | Outpatient (REF) | payer MEDICARE, SELFPAY ==
--- OUTSIDE RECORDS SUMMARY | 2025-05-09 06:39 | XMS_ITS | Clinical Summary ---
Author Organization [facility] Address [address] [place] [address] [place] [address] Phone Care Team Providers Care Senior User Experience Architect Name Role Phone Ila Holguin MD Primary Care Provider [phone] Allergies No known active allergies Medications allopurinol [...] mouth nightly at bedtime. Active multivitamins-m inerals-folic bqrf-shywnef-ig tein (COMPLETE SENIOR) 0.4 mg-300 mcg- 250 [...] Plan (05/22/2022 4:58 PM EST): Presents from [facility] after having had urinary frequency, suprapubic pain, and fatigue, increased confusion, febrile to 101F there, decreased blood pressure, with urinalysis consistent with UTI. Received 1 dose of ciprofloxacin at 8 PM at 05/18/2022. UC from [facility], Ecoli. Similar on culture taken on admit, BC all negative. Some resistance, but susceptible to rocephin. Same for today. Need to keep kidney function in mind when choosing to deescalate. ? To be answered is if this is acute cystitis or more complicated UTI, as he has had multiple. Requested the last 4 discharge summaries from [facility]. His daughter has a huge amount [...] is essentially been hospitalized or in a [facility] facility since August it has not happened. She was wondering if we can have that done while here if it is something that is predisposing him to UTI Urine culture demonstrating [id number] colonies E. coli, resistant to amp, amp sulbactam -- On ceftriaxone, de-escalate to Ceftin -- Urology consult requested Acute kidney injury 05/11/2022 Assessment & Plan (05/22/2022 4:54 PM EST): Patient has had recent ESRD with hemodialysis treatments X8, at discharge to [facility] previously was at creatinine of 1.7 presents now with creatinine of 2.4 in setting of likely dehydration and complicated UTI. CRE is trending down with IVF and tx of UTI. If this trend continues, no need for imaging. Renal function improving with creatinine today 1.8 --Continue daily labs Assessment & Plan (05/11/2022 4:12 PM EDT): Recent KHADRA requiring hemodialysis during [facility] hospitalization. Per daughter, received 6 treatments. 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 CHLORIDE 104 96 - 108 mmol/L [facility] POTASSIUM 4.8 3.3 - 5.1 mmol/L [facility] CO2 23 21 - 35 mmol/L [facility] BUN 58(H) 6 - 19 mg/dL [facility] CREATININE 2.20(H) 0.5 - 1.5 mg/dL [facility] GLUCOSE 99 70 - 99 mg/dL [facility] CALCIUM 12.3(H) 8.4 - 10.3 mg/dL [facility] EGFR 30(L) >59 mL/min/1.7 3m2 [facility] Comment:Estimated glomerular filtration rate calculated using the CKD-EPI refit equation. ANION GAP 14 10 - 20 mmol/L [facility] Blood 06/27/2022 5:45 AM EST 06/27/2022 8:59 AM EST us Ila Holguin MD LAB BLOOD ORDERABLES Final Res ult [facility] [address] [place] [address] * Hemoglobin A1c (05/20/2022 6:27 AM EST) HEMOGLOBIN A1C 5.4 4.3 - 5.8 % [facility] Blood 05/20/2022 6:27 AM EST 05/20/2022 6:44 AM EST us Joseph Christie PICCOLOIST LAB BLOOD ORDERABLES Fi nal Result [facility] [address] [place] [address] from Last 3 Months or Most Recently Relevant to Health Maintenance Insurance MED[place] PART A [place] [id number] [facility] MEDICARE SUPPLEMENT MEDICARE PART A & B MEDICARE SUPPLEMENT MEDICARE PART A & B [facility] MEDICARE SUPPLEMENT MEDICARE PART A & B MEDICARE SUPPLEMENT MEDICARE PART A & B MEDICARE SUPPLEMENT MEDICARE PART A & B [facility] MEDICARE SUPPLEMENT MEDICARE PART A & B Member Subscriber Plan / Payer (Ef fective 2008-Present) Name:Urmila Gume Member ID:[id number] Relation to Subscriber:Self Name:Gume Kearns Subscriber ID:[id number] Payer ID:[id number] Group ID:Not on file Type:Medicare Address: [employer] [address] [place] [id number] [facility] MEDICARE SUPPLEMENT MEDICARE PART A & B [facility] MEDICARE SUPPLEMENT MEDICARE PART A & B Member Subscriber Plan / Payer (Ef fective 2008-Present) Name:Gume Kearns Member ID:[id number] Relation to Subscriber:Self Name:Gume Kearns Subscriber ID:[id number] Payer ID:[id number] Group ID:Not on file Type:Medicare Address: [facility] [employer] [facility] [address] [place] [phone] [facility] MEDICARE SUPPLEMENT Advance Directives For more information, please contact: [phone] (9AM - 5PM [facility], Friday-Friday) Documents on File Type Date Recorded Patient Supervisor Welding Equipment Repairer Expl anation MOLST 05/24/2022 1:55 PM Healthcare Proxy 05/14/2022 1:26 PM MOLST 05/12/2022 11:37 AM MOLST DO S 05/10/22 Healthcare Proxy 05/12/2022 11:36 AM ANNY ONTIVEROS [facility] 04/25/22 * DNR/DNI (No CPR/No Intubation) (Latest [...] Agent (Proxy form on file) Care Teams Senior User Experience Architect Relationship Specialty Start Date End Date Ila Holguin MD [address] [place] [address] [email or web address] PCP - General Internal Medicine 05/10/22 Additional Source Comments The information contained in this document represents components of the legal health record. It is not the complete legal health record.[facility]
--- OUTSIDE RECORDS SUMMARY | 2025-05-09 06:39 | XMS_ITS | Encounter Summary ---
Author Organization [facility] Address [address] [place] [address] [place] [address] Phone Care Team Providers Care Certified Prosthetist Name Role Phone Ila Holguin MD Primary Care Provider [phone] Encounter Details Date Type Department Care Team (Late st Contact Info) Description 05/10/2022 Procedure Pass [facility], Ct Scan - [facility] [address] [place] [address] Social History Tobacco Use Types Packs/Day Years [...] 4:06 PM EDT Adilson Castillo, FACUNDO * [place] Suicide Severity Rating Scale (Screener/Recent Self-Report) Question [...] documented as of this encounter Care Teams Certified Prosthetist Relationship Specialty Start Date End Date Ila Holguin MD [address] [place] [address] [email or web address] PCP - General Internal Medicine 05/10/22 documented as of this encounter Additional Source Comments The information contained in this document represents components of the legal health record. It is not the complete legal health record.[facility]
--- OUTSIDE RECORDS SUMMARY | 2025-05-09 06:39 | XMS_ITS | Clinical Summary ---
Author Organization [facility] it Address [address] [place] [address] Care Team Providers Care Emergency Department Director Name Role Phone Unavailable Primary Care Provider [...]
--- OUTSIDE RECORDS SUMMARY | 2025-05-09 06:39 | XMS_ITS | Clinical Summary ---
Author Organization [facility] Address [address] [place] [address] Phone Care Team Providers Care Bait Packer Name Role Phone Vladimir Keys MD Primary Care Provider [phone] Allergies No known active allergies Medications acetaminophen [...] (09/18/2021): Added automatically from request for surgery [id number] Immunizations Immunization Administration Dates Next Due Influenza, Unspecified 04/24/2021,2019,03/14/2017,03/31/2016, 5 Pfizer SARS-COV-2 11/21/2020,10/29/2020 Family History Medical History Relation Comments Diabetes Father Heart disease Father [place] Stroke Mother Relation Status Comments Father Mother [...] EDT Unless otherwise specified, test(s) performed at: [facility] [address] BREASTFEEDING EDUCATOR: Chris Gomez M.D. For any questions, please call customer service at FREQUENCY:MONTHLY Resulting Agency Comment Specimen source: Blood Brian Saldaña MD LAB BLOOD BANK TEST ORDERABLES F inal Result [facility] EBONIE PVNMA from Last 3 Months or Most Recently Relevant to Health Maintenance Insurance Medicare [facility] Medicare [facility] Care Teams Bait Packer Relationship Specialty Start Date End Date Vladimir Keys MD [address] [place] [address], [address] [place], [place] PCP - General 07/24/20
[2025-05-09 06:59] LABS: MANUAL DIFF FLAG NO
[2025-05-09 07:13] LABS: Hematocrit 30.3 % (42.0-52.0); Hemoglobin 9.3 g/dl (14.0-18.0); Imm Gran Abs Auto 0.01 X10*3/uL (0.00-0.03); Imm Gran Pct Auto 0.2 % (0.0-0.4); Lymphocytes Absolute Auto 0.9 X10*3/uL (1.2-4.9); Mean Corpuscular HGB Conc 30.7 g/dl (31.0-36.0); Mean Corpuscular Hemoglobin 30.9 pg (27.0-33.0); Mean Corpuscular Volume 100.7 fL (80.0-98.0); NRBC Abs Auto 0.000 X10*3/uL (0.0-0.012); NRBC Pct Auto 0.0 /100WBC (0.0-0.2); Platelet Count 142 X10*3/uL (160-400); Red Blood Count 3.01 X10*6/uL (4.60-5.80); White Blood Count 4.8 X10*3/uL (4.8-10.8)
[2025-05-09 07:17] LABS: INTERNATIONAL NORM RATIO 2.2 (0.9-1.1); Prothrombin Time 25.2 SEC (10.9-12.4)
[2025-05-09 07:28] LABS: Albumin Level 3.0 g/dL (3.5-5.0); Calcium 9.3 mg/dL (8.4-10.2)
[2025-05-09 07:50] LABS: Thyroid Stimulating Hormone 4.43 uIU/mL (0.32-4.0)
[2025-05-09 07:57] LABS: Vitamin B12 1019 pg/mL (200-900)
== END 2025-05-09 06:36 | disposition home or self-care (01) ==
LOC: HO.HSH2E 06:35
PROVIDERS: Visit Provider Nurse Practitioner
DX: Z13.21 Encounter for screening for nutritional disorder (principal); Z13.29 Encounter for screening for other suspected endocrine disorder; Z95.2 Presence of prosthetic heart valve
CPT/HCPCS: 36415; 82040; 82306; 82310; 82607; 84443; 85025; 85610

== ENCOUNTER 2025-05-23 06:07 | Outpatient (REF) | payer MEDICARE, SELFPAY ==
--- OUTSIDE RECORDS SUMMARY | 2025-02-22 05:30 | XMS_ITS ---
Author Name [facility] Organization [facility] Address [address] [place] [address] Care Team Providers Care It Auditor Name Role Phone DANIKA BOO Primary [facility] Insurance Providers: All historical and current Section [...] PLAN MY Jul 14, 2022 PLAN MY [id number] [phone] KENDRA GOMEZ PATIENT AARP MED SUPP MEDICARE SUPPLEMEN ISAIAS Jul 14, 2010 PLANMY [id number] KENDRA GOMEZ PATIENT MEDICARE (WNR) MEDICARE (M) PART A Jan 12, 2008 PART A [id number] [phone] KENDRA GOMEZ PATIENT MEDICARE (WNR) MEDICARE (M) PART B Jan 12, 2008 PART B [id number] [phone] KENDRA GOMEZ PATIENT MEDICARE (WNR) MEDICARE (M) PART A Jan 12, 2008 PART A [id number] [phone] KENDRA GOMEZ PATIENT MEDICARE (WNR) MEDICARE (M) PART B Jan 12, 2008 PART B [id number] KENDRA GOMEZ PATIENT Selected Encounter This section includes the information on record at [place] for the Encounter. Date/Time Encounter Type Encounter Description Reason Provider Source Feb 22, 2025 10:30 AM WHEELCHAIR MNGMENT TRAINING WHEELCHAIR & ADVAN MOBILITY ICD-10-CM Z74.09 Other reduced mobility DANDY DEAN IHE Encounter Template Text not used by [place] Assessments - Encounter Diagnoses This section includes the primary and secondary diagnoses documented for the Encounter. Date/Time Primary/Secondary Diagnosis Diagnosis Name Provider Source Feb 22, 2025 12:05 PM PRIMARY Other reduced mobility DANDY DEAN [facility] Plan of Treatment: Future Appointments (+ 6 months) and Future Tests (+/- 45 days) The Plan of Treatment section includes future care activities for the patient from [facility] [place] [facility] This section includes future appointments and future orders which are active, pending or scheduled. Future Appointments This section includes appointments that were scheduled to occur 6 months from the date of the Encounter, up to a maximum of 20 appointments. The data comes from all [place] treatment facilities. Appointment Date/Time Appointment Type Appointme nt Facility Name Jul 21, 2025 10:00 AM AMBULATORY - REHAB MEDICIN E [facility] Social History: Smoking Status (Most current) and Tobacco Use (All prior to encounter date) This section includes the most current, and the historical, smoking and tobacco- related health factors from the [place] facility where the Encounter took place. Current Smoking Status This section includes the most current smoking, or tobacco-related health factor, from the [place] facility where the Encounter took place. Date/Time Current Smoking Status Comment Facil ity May 21, 2023 04:57 PM VA-TOBACCO FORMER USER [facility] Tobacco Use History This section includes a history of the smoking, or tobacco-related health factors, that were collected on or before the date of the Encounter. The data comes from the [place] facility where the Encounter took place. Date/Time Smoking Status/Tobacco Use Comment F acility May 21, 2023 04:57 PM [place]-TOBACCO QUIT 15 YRS OR MORE [facility] Encounter Notes: All associated encounter notes This section contains the clinical notes associated to the Encounter. Date/Time Encounter Note(s) Provider Source Feb 22, 2025 10:18 AM OCCUPATIONAL THERA PY TREATMENT PLAN NOTE: LOCAL TITLE: OCCUPATIONAL THERAPY PROGRESS NOTE STANDARD TITLE: OCCUPATIONAL THERAPY TREATMENT PLAN NOTE DATE OF NOTE: FEB 22, 2025@10:18 ENTRY DATE: FEB 22, 2025@10:18:36 AUTHOR: DANDY DEAN EXP COSIGNER: URGENCY: STATUS: COMPLETED Occupational Therapy Progress Note Initial Evaluation date: Dec Progress Note Date: 04/19/24, 05/17/25, 10/19/24, 02/22/25 Treatment #: 5 Treatment time: 32 Diagnosis: Other Reduced Mobility(ICD-10-CM Z74.09) Provider: JEM Boo S/ Pt with diagnosis of reduced mobility was seen on 01/08/24 to order manual w/c and issued/fitted chair on 04/19/24. Pt referred back to w/c clinic d/t discomfort in sitting in existing w/c with noted stage I pressure ulcer to right buttocks. Was issued a Fusion cushion. Reporting back today for the same- pressure area to right buttocks. Type of chair being issued: Q2 (22x20), J3 PA back Serial #: [id number] Cushion: Fusion Date of delivery: 04/19/25 Repair history: 05/17- ordered new cushion (Blas Fusion with Cyro 22x19) O/ Pt arriving to OT clinic in Q2. Noted good upright sitting posture. W/C MANAGEMENT TRAINING ( ) MOBILITY CHECK: propels with BUE's and BLE's PT CONCERNS/ISSUES: 1. pressure ulcer R IT MODIFICATIONS/ADJUSTMENTS: 1. built-up L side for R pelvic obliquity- pressure mapped before and after with better mapping with obliquity 2. mapped on Axiom SP, air cushion, and Everson cushion today. Mapped best on Everson cushion today. RECOMMENDATIONS: 1. will use Fusion with build-up for now as mapped better 2. made recommendation to change cushion to Everson 22x20- will f/u when in to map again 3. reviewed importance of pressure relief with the following recommendations: *these were reviewed last time but does not to seem be any follow- through. 1. leaning forward in chair every 20 minutes for pressure redistribution and weight shifting [id number]. Pt was able to see through using pressure map technology what this looked like in relation to pressure. Able to verbalize understanding. 2. recommend standing every hour for 2-3 minutes 3. recommend going back to bed after lunch for 20-30 minutes A/ Pt is an 80 year old male in a Q2 with pressure ulcers to R IT.. Mapping today did show increased pressure to that area. Trialed with , Recommend weight-shifting, leaning forward, standing and going back to bed for 20-30 minutes after lunch. P/ Modified Fusion cushion better pressure distribution today. Will order Everson cushion and trial once in. /es/ DANDY DEAN OTR/L OCCUPATIONAL THERAPIST Signed: 02/22/2025 12:05 DANDY DEAN IN [facility]
--- OUTSIDE RECORDS SUMMARY | 2025-05-23 00:08 | XMS_ITS | Continuity of Care Document ---
Author Name [facility] Organization [facility] Care Team Providers Care Computing Machine Operator Name Role Phone [facility] Unavailable Unavailable Problems Combined list of problems [...] [facility] Diagnosis: ICD-10-CM N47.1 Phimosis Active Diagnosis [facility] Diagnosis: ICD-10-CM Z74.09 Other reduced mobility Active Diagnosis [facility] Medications Combined list of outpatient medications from Department of Defense and Veterans Affairs facilities.Medications provided include 1) outpatient medications from the last 15 months, and 2) patient-reported medications. Medication Details Route Status Indication(s) Patie nt Instructions Prescription Expires Prescription Number Last Dispense Date Ordering Provider Order Date Order Qty Source CYANOCOBALA MIN TAB TAKE BY MOUTH ORAL ACTIVE DANIKA BOO 2022 [facility] DOXYCYCLINE HYCLATE 100MG TAB TAKE ONE TABLET BY MOUTH TWICE DAILY ORAL ACTIVE DANIKA BOO 2022 [facility] GABAPENTIN 100MG CAP TAKE 1 CAPSULE BY MOUTH TWICE DAILY ORAL ACTIVE DANIKA BOO 2022 [facility] METOPROLOL SUCCINATE 50MG TAB,SA TAKE THREE TABLETS BY MOUTH ONCE DAILY ORAL ACTIVE DANIKA BOO 2022 [facility] MUPIROCIN 2% OINT,TOP APPLY THIN LAYER TOPICALL Y TWICE DAILY FOR SKIN INFECTIO N TOPICA L 04/22/2025 [id number] DANIKA BOO 2024 22 [facility] SIMVASTATIN 40MG TAB TAKE ONE-HALF TABLET BY MOUTH AT BEDTIME ORAL ACTIVE DANIKA OBO 2022 [facility] TRIAMCINOLO NE ACETONIDE 0.1% CREAM,TOP APPLY A THIN LAYER TOPICALL Y ONCE DAILY FOR ITCHING TOPICA L 04/22/2025 [id number] DANIKA BOO 2024 80 [facility] WARFARIN (NON-VA) TAB TAKE BY MOUTH ORAL ACTIVE DANIKA BOO 2022 [facility] Immunizations Combined list of available immunizations from the Department of Defense and Veterans Affairs facilities. Immunization Series Date Given Administered By Site Reaction Lot Number CVX Code Drug Office Services Associate Status Comments Source COVID-19 ([employer]), MRNA, LNP-S, PF, 30 MCG/0.3 ML DOSE 2021 208 complet ed Booster for Series, HISTORICA L INFORMATI ON - FROM OTHER PROVIDER, Lot#: [id number] [facility] COVID-19 ([employer]), MRNA, LNP-S, PF, 30 MCG/0.3 ML DOSE 2 2020 208 complet ed HISTORICA L INFORMATI ON - FROM OTHER REGISTRY, DEBBIE Mfr: [employer], [employer] [facility] COVID-19 ([employer]), MRNA, LNP-S, PF, 30 MCG/0.3 ML DOSE 1 2020 208 complet ed HISTORICA L INFORMATI ON - FROM OTHER REGISTRY, YASMEENV Mfr: [employer], [employer] [facility] Encounters Combined list of: 1) Encounters from Department of Veterans Affairs facilities going backup to the last 18 months, not all VA inpatient encounters are included; 2) Encounters from the Department of Defense facilities going backup to 280 months. Location Location Details Encounter Type Encounter Number Reason For Visit Attending Provider ADM Date DC Date Status Disposition Source [facility] WHEELCHAIR MNGMENT TRAINING [id number] Diagnos is: ICD-10- CM Z74.09 Other reduced mobilit y DEAN,TEDDY ICA L 01/07 [facility] Outpatient Encounter [id number] Stephane BOO 02/01 [facility] Outpatient Encounter [id number] 02/17 [facility] WHEELCHAIR MNGMENT TRAINING [id number] 1. Diagnos is: ICD-10- CM Z74.09 Other reduced mobilit y GIBRAN DEANSS ICA L 04/19 [facility] WHEELCHAIR MNGMENT TRAINING [id number] Diagnos is: ICD-10- CM Z74.09 Other reduced mobilit y TEDDY DEAN ICA L 05/17 [facility] Outpatient Encounter [id number] Stephane BOO 06/04 [facility] WHEELCHAIR MNGMENT TRAINING [id number] Diagnos is: ICD-10- CM Z74.09 Other reduced mobilit y TEDDY DEAN ICA L 10/19 [facility] Outpatient Encounter [id number] Stephane BOO 10/25 [facility] Out[facility]counter [id number] 01/26 [facility] WHEELCHAIR MNGMENT TRAINING [id number] Diagnos is: ICD-10- CM Z74.09 Other reduced mobilit y TEDDY DEAN ICA L 02/22 [facility] NQHP OL DIG ASSMT&MGMT 5-10 [id number] Diagnos is: ICD-10- CM N47.1 Phimosi s ANGELA DAWSON RISTY A 03/23 [facility] Outpatient Encounter [id number] 04/18 [facility] Social History Combined list of available smoking, tobacco, and other social history from Department of Defense and Veterans Affairs facilities. Social History Type Response Date Comment Sourc e Tobacco smoking status NHIS VA-TOBACCO FORMER USER 05/21/2023 [facility] History of tobacco use WV-TOBACCO QUIT 15 YRS OR MORE 05/21/2023 [facility] Plan of Care List of future care activities from Department of Veterans Affairs facilities. Additional future care activities may be listed in the Assessment and Plan section. Date/Time Care Activity Care Activity Detail Facili ty 07/21/2025 AMBULATORY - REHAB MEDICINE AMBULATORY - REHAB MEDICINE [facility]
--- OUTSIDE RECORDS SUMMARY | 2025-05-23 06:09 | XMS_ITS | Clinical Summary ---
Author Organization [facility] Address [address] [place] [address] Phone Care Team Providers Care Margin Trimmer Name Role Phone Vladimir Keys MD Primary Care Provider [phone] Allergies No known active allergies Medications acetaminophen [...] (09/18/2021): Added automatically from request for surgery [id number] Immunizations Immunization Administration Dates Next Due Influenza, Unspecified 04/24/2021,2019,03/14/2017,03/31/2016, 5 Pfizer SARS-COV-2 11/21/2020,10/29/2020 Family History Medical History Relation Comments Diabetes Father Heart disease Father [place] Stroke Mother Relation Status Comments Father Mother [...] EDT Unless otherwise specified, test(s) performed at: [facility] [address] FILER FINISH: Chris Gomez M.D. For any questions, please call customer service at FREQUENCY:MONTHLY Resulting Agency Comment Specimen source: Blood Brian Saldaña MD LAB BLOOD BANK TEST ORDERABLES F inal Result APS EBONIE PVNMA from Last 3 Months or Most Recently Relevant to Health Maintenance Insurance Medicare [facility] Medicare [facility] Care Teams Margin Trimmer Relationship Specialty Start Date End Date Vladimir Keys MD [address] [place] [address], [address] [place], [place] PCP - General 07/24/20
--- OUTSIDE RECORDS SUMMARY | 2025-05-23 06:09 | XMS_ITS | Clinical Summary ---
Author Organization [facility] ity Address [address] [place] [address] Care Team Providers Care Lead Nurse Name Role Phone Unavailable Primary Care Provider [...] nts (1 - 1-dose 75+ series) 2018 Depression Screening 07/14/2024 COVID-19 Vaccine (1 - [...]
--- OUTSIDE RECORDS SUMMARY | 2025-05-23 06:10 | XMS_ITS | Encounter Summary ---
Author Organization [facility] Address [address] [place] [address] [place] [address] Phone Care Team Providers Care Legal Manager Name Role Phone Ila Holguin MD Primary Care Provider [phone] Encounter Details Date Type Department Care Team (Late st Contact Info) Description 05/10/2022 Procedure Pass [facility], Ct Scan - [facility] [address] [place] [address] Social History Tobacco Use Types Packs/Day Years [...] 4:06 PM EDT Adilson Castillo, FACUNDO * [place] Suicide Severity Rating Scale (Screener/Recent Self-Report) Question [...] documented as of this encounter Care Teams Legal Manager Relationship Specialty Start Date End Date Ila Holguin MD [address] [place] [address] [email or web address] PCP - General Internal Medicine 05/10/22 documented as of this encounter Additional Source Comments The information contained in this document represents components of the legal health record. It is not the complete legal health record.[facility]
--- OUTSIDE RECORDS SUMMARY | 2025-05-23 06:10 | XMS_ITS | Clinical Summary ---
Author Organization [facility] Address [address] [place] [address] [place] [address] Phone Care Team Providers Care Street Car Inspector Name Role Phone Ila Hloguin MD Primary Care Provider [phone] Allergies No known active allergies Medications allopurinol [...] mouth nightly at bedtime. Active multivitamins-m inerals-folic ymmw-ypcxrqp-pc tein (COMPLETE SENIOR) 0.4 mg-300 mcg- 250 [...] Plan (05/22/2022 4:58 PM EST): Presents from [facility] after having had urinary frequency, suprapubic pain, and fatigue, increased confusion, febrile to 101F there, decreased blood pressure, with urinalysis consistent with UTI. Received 1 dose of ciprofloxacin at 8 PM at 05/18/2022. UC from [facility], Ecoli. Similar on culture taken on admit, BC all negative. Some resistance, but susceptible to rocephin. Same for today. Need to keep kidney function in mind when choosing to deescalate. ? To be answered is if this is acute cystitis or more complicated UTI, as he has had multiple. Requested the last 4 discharge summaries from [facility]. His daughter has a huge [...] predisposing him to UTI Urine culture demonstrating [id number] colonies E. coli, resistant to amp, amp sulbactam -- On ceftriaxone, de-escalate to Ceftin -- Urology consult requested Acute kidney injury 05/11/2022 Assessment & Plan (05/22/2022 4:54 PM EST): Patient has had recent ESRD with hemodialysis treatments X8, at discharge to [facility] previously was at creatinine of 1.7 presents now with creatinine of 2.4 in setting of likely dehydration and complicated UTI. CRE is trending down with IVF and tx of UTI. If this trend continues, no need for imaging. Renal function improving with creatinine today 1.8 --Continue daily labs Assessment & Plan (05/11/2022 4:12 PM EDT): Recent KHADRA requiring hemodialysis during [facility] hospitalization. Per daughter, received 6 [...] delerium as well documented in notes from [facility] where this was ongoing and [...] 4:10 PM EDT): On presentation 04/22 at [facility] Completed daptomycin on 05/10 --Due [...] skin thickness with weeping and oozing Per [facility] notes: Recommend Aquacel Ag covered [...] patient's age to complete this topic IPV VACCINES Aged Out No longer eligi ble [...] Date/Time Associated Diagnosis Comments BASIC METABOLIC PANEL (BMP) Routine 06/27/2022 5:45 AM EST Atherosclerosis of [place] coronary artery without angina pectoris, unspecified whether eastern [place] or transplanted heart 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 HEMOGLOBIN A1C Routine 05/20/2022 6:27 AM EST from Last 3 Months or Most Recently Relevant to Health Maintenance Results * (ABNORMAL) Basic metabolic panel (06/27/2022 5:45 AM EST) SODIUM 136 133 - 146 mmol/L [facility] CHLORIDE 104 96 - 108 mmol/L [facility] POTASSIUM 4.8 3.3 - 5.1 mmol/L [facility] CO2 23 21 - 35 mmol/L [facility] BUN 58(H) 6 - 19 mg/dL [facility] CREATININE 2.20(H) 0.5 - 1.5 mg/dL [facility] GLUCOSE 99 70 - 99 mg/dL [facility] CALCIUM 12.3(H) 8.4 - 10.3 mg/dL [facility] EGFR 30(L) >59 mL/min/1.7 3m2 [facility] Comment:Estimated glomerular filtration rate calculated using the CKD-EPI refit equation. ANION GAP 14 10 - 20 mmol/L [facility] Blood 06/27/2022 5:45 AM EST 06/27/2022 8:59 AM EST Ila Holguin MD LAB BLOOD BKR ORDERABLES Final Result [address] [address] * Hemoglobin A1c (05/20/2022 6:27 AM EST) HEMOGLOBIN A1C 5.4 4.3 - 5.8 % [facility] Blood 05/20/2022 6:27 AM EST 05/20/2022 6:44 AM EST us Joseph Christie CNP LAB BLOOD BKR ORDERABLE S Final Result Performing Organization Address City/[facility]/ZIP Co de Phone Number [address] [address] from Last 3 Months or Most Recently Relevant to Health Maintenance Insurance MEDICARE PART A & B [facility] MEDICARE SUPPLEMENT MEDICARE PART A & B Member Subscriber Plan / Payer (Ef fective 2008-Present) Name:Gume Kearns Member ID:[id number] Relation to Subscriber:Self Name:Gume Kearns Subscriber ID:[id number] Payer ID:[id number] Group ID:Not on file Type:Medicare Address: [employer] [address] [place] [address] [place] [address] MEDICARE SUPPLEMENT MEDICARE PART A & B [facility] MEDICARE SUPPLEMENT MEDICARE PART A & B MEDICARE SUPPLEMENT MEDICARE PART A & B MEDICARE SUPPLEMENT MEDICARE PART A & B [facility] MEDICARE SUPPLEMENT MEDICARE PART A & B [facility] MEDICARE SUPPLEMENT MEDICARE PART A & B [facility] MEDICARE SUPPLEMENT MEDICARE PART A & B [facility] MEDICARE SUPPLEMENT [facility] Address: [facility] [address] [place] [address] Advance Directives For more information, please contact: [phone] (9AM - 5PM [facility], Friday-Friday) Documents on File Type Date Recorded Patient Hyperion Developer Expl anation MOLST 05/24/2022 1:55 PM Healthcare Proxy 05/14/2022 1:26 PM MOLST 05/12/2022 11:37 AM MICHELLEST DO S 05/10/22 Healthcare Proxy 05/12/2022 11:36 AM ANNY ONTIVEROS [facility] 04/25/22 * DNR/DNI (No CPR/No [...] Agent (Proxy form on file) Care Teams Street Car Inspector Relationship Specialty Start Date End Date Ila Holguin MD [address] [place] [address] [email or web address] PCP - General Internal Medicine 05/10/22 Additional Source Comments The information contained in this document represents components of the legal health record. It is not the complete legal health record.[facility]
--- OUTSIDE RECORDS SUMMARY | 2025-05-23 06:10 | XMS_ITS | Encounter Summary ---
Author Organization [facility] Address [address] [place] [address] Phone Care Team Providers Care Conduit Worker Name Role Phone Ila Holguin MD Primary Care Provider [phone] Encounter Details Date Type Department Care Team (Latest Contact Info) Description 06/17/2022 Transcribe Orders [facility] Specimen Processing [address] [place] [address] Ila Holguin MD [address] [place] [address] [email or web address] Atrial fibrillation, unspecified type (Primary [...] EST) PT 21.5(H) 10.2 - 12.9 sec [facility] INR 1.9(H) 0.9 - 1.1 [facility] Comment:Therapeutic range fo r oral Vitamin K antagonists: 2.0-3.5 06/17/2022 6:3 5 AM EST 06/17/2022 8:33 AM EST Ila Holguin MD LAB BLOOD BKR ORDERABLES Final Result Performing Organization Address City/[facility] Co de Phone Number [address] [address] * (ABNORMAL) CBC (06/17/2022 6:35 AM EST) WBC 6.62 4.00 - 11.00 K/uL [facility] RBC 2.83(L) 3.90 - 5.69 M/uL [facility] HGB 8.3(L) 12.4 - 17.3 g/dL [facility] Comment:Called to Purnima Corley and read back HCT 25.8(L) 37.0 - 51.0 % [facility] PLT 242 140 - 430 K/uL [facility] MCV 91.2 78.0 - 97.0 fL [facility] MCH 29.3 25.0 - 33.0 pg [facility] MCHC 32.2 32.0 - 36.0 g/dL [facility] RDW 19.0(H) 11.0 - 15.0 % [facility] MPV 10.5 8.4 - 12.8 fl [facility] 06/17/2022 6:35 AM EST 06/17/2022 8:33 AM EST Ila Holguin MD LAB BLOOD BKR ORDERABLES Final Result Performing Organization Address City/[facility]/ZIP Co de Phone Number [address] [address] * (ABNORMAL) Comprehensive metabolic panel (06/17/2022 6:35 AM EST) SODIUM 139 133 - 146 mmol/L [facility] POTASSIUM 4.7 3.3 - 5.1 mmol/L [facility] CHLORIDE 107 96 - 108 mmol/L [facility] CO2 23 21 - 35 mmol/L [facility] BUN 45(H) 6 - 19 mg/dL [facility] CREATININE 2.20(H) 0.5 - 1.5 mg/dL [facility] GLUCOSE 94 70 - 99 mg/dL [facility] ALBUMIN 2.8(L) 3.9 - 4.8 g/dL [facility] TOTAL PROTEIN 6.1(L) 6.5 - 8.0 g/dL [facility] CALCIUM 11.8(H) 8.4 - 10.3 mg/dL [facility] ALKALINE PHOSPHATASE 94 39 - 117 U/L [facility] TOTAL BILIRUBIN 0.3 0.0 - 1.2 mg/dL [facility] AST 14 0 - 37 U/L [facility] ALT 7 0 - 40 U/L [facility] GLOBULIN 3.3 1 - 4.8 g/dL [facility] EGFR 30(L) >59 mL/min/1.7 3m2 [facility] Comment:Estimated glomerular filtration rate calculated using the CKD-EPI refit equation. ANION GAP 14 10 - 20 mmol/L [facility] 06/17/2022 6:35 AM EST 06/17/2022 8:33 AM EST Ila Holguin MD LAB BLOOD BKR ORDERABLES Final Result Performing Organization Address City/State/[facility] Co de Phone Number [facility] [address] [place] [address] documented in this encounter Visit Diagnoses Diagnosis Atrial fibrillation, unspecified type- Primary documented in this encounter Care Teams Conduit Worker Relationship Specialty Start Date End Date Ila Holguin MD [address] [place] [address] PCP - General Internal Medicine 05/10/22 documented as of this encounter Additional Source Comments The information contained in this document represents components of the legal health record. It is not the complete legal health record.[facility]
[2025-05-23 07:02] LABS: INTERNATIONAL NORM RATIO 2.9 (0.9-1.1); Prothrombin Time 35.0 SEC (11.2-13.5)
== END 2025-05-23 06:08 | disposition home or self-care (01) ==
LOC: HO.HSH2E 06:07
PROVIDERS: Visit Provider Internal Medicine Endocrinology, Diabetes & Metabolism
DX: Z51.81 Encounter for therapeutic drug level monitoring (principal)
CPT/HCPCS: 36415; 85610

== ENCOUNTER 2025-05-30 06:53 | Outpatient (REF) | payer MEDICARE, SELFPAY ==
[2025-05-30 06:58] LABS: MANUAL DIFF FLAG NO
--- OUTSIDE RECORDS SUMMARY | 2025-05-30 06:59 | XMS_ITS | Encounter Summary ---
Author Organization [facility] Address [address] [place] [address] Phone Care Team Providers Care Attending Ambulatory Care Name Role Phone Ila Holguin MD Primary Care Provider [phone] Encounter Details Date Type Department Care Team (Latest Contact Info) Description 06/17/2022 Transcribe Orders [facility] Specimen Processing [address] [place] [address] Ila Holguin MD [address] [place] [address] [email or web address] Atrial fibrillation, unspecified [...] EST) PT 21.5(H) 10.2 - 12.9 sec [facility] INR 1.9(H) 0.9 - 1.1 [facility] Comment:Therapeutic range fo r oral Vitamin K antagonists: 2.0-3.5 06/17/2022 6:35 AM EST 06/17/2022 8:33 AM EST Ila Holguin MD LAB BLOOD BKR ORDERABLES Final Result Performing Organization Address City/[facility] Co de Phone Number [address] [address] * (ABNORMAL) CBC (06/17/2022 6:35 AM EST) WBC 6.62 4.00 - 11.00 K/uL [facility] RBC 2.83(L) 3.90 - 5.69 M/uL [facility] HGB 8.3(L) 12.4 - 17.3 g/dL [facility] Comment:Called to Purnima Corley and read back HCT 25.8(L) 37.0 - 51.0 % [facility] PLT 242 140 - 430 K/uL [facility] MCV 91.2 78.0 - 97.0 fL [facility] MCH 29.3 25.0 - 33.0 pg [facility] MCHC 32.2 32.0 - 36.0 g/dL [facility] RDW 19.0(H) 11.0 - 15.0 % [facility] MPV 10.5 8.4 - 12.8 fl [facility] 06/17/2022 6:35 AM EST 06/17/2022 8:33 AM EST Ila Holguin MD LAB BLOOD BKR ORDERABLES Final Result Performing Organization Address City/[facility]/ZIP Co de Phone Number [address] [address] * (ABNORMAL) Comprehensive metabolic panel (06/17/2022 6:35 AM EST) SODIUM 139 133 - 146 mmol/L [facility] POTASSIUM 4.7 3.3 - 5.1 mmol/L [facility] CHLORIDE 107 96 - 108 mmol/L [facility] CO2 23 21 - 35 mmol/L [facility] BUN 45(H) 6 - 19 mg/dL [facility] CREATININE 2.20(H) 0.5 - 1.5 mg/dL [facility] GLUCOSE 94 70 - 99 mg/dL [facility] ALBUMIN 2.8(L) 3.9 - 4.8 g/dL [facility] TOTAL PROTEIN 6.1(L) 6.5 - 8.0 g/dL [facility] CALCIUM 11.8(H) 8.4 - 10.3 mg/dL [facility] ALKALINE PHOSPHATASE 94 39 - 117 U/L [facility] TOTAL BILIRUBIN 0.3 0.0 - 1.2 mg/dL [facility] AST 14 0 - 37 U/L [facility] ALT 7 0 - 40 U/L [facility] GLOBULIN 3.3 1 - 4.8 g/dL [facility] EGFR 30(L) >59 mL/min/1.7 3m2 [facility] Comment:Estimated glomerular filtration rate calculated using the CKD-EPI refit equation. ANION GAP 14 10 - 20 mmol/L [facility] 06/17/2022 6:35 AM EST 06/17/2022 8:33 AM EST Ila Holguin MD LAB BLOOD BKR ORDERABLES Final Result Performing Organization Address City/State/[facility] Co de Phone Number [facility] [address] [place] [address] documented in this encounter Visit Diagnoses Diagnosis Atrial fibrillation, unspecified type- Primary documented in this encounter Care Teams Attending Ambulatory Care Relationship Specialty Start Date End Date Ila Holguin MD [address] [place] [address] PCP - General Internal Medicine 05/10/22 documented as of this encounter Additional Source Comments The information contained in this document represents components of the legal health record. It is not the complete legal health record.[facility]
--- OUTSIDE RECORDS SUMMARY | 2025-05-30 06:59 | XMS_ITS | Clinical Summary ---
Author Organization [facility] ity Address [address] [place] [address] Care Team Providers Care Engineering Officer Name Role Phone Unavailable Primary Care [...] Depression Screening 07/14/2024 COVID-19 Vaccine (1 - 2024-2 6 season) 2025 Influenza Vaccine (#1) 2025 HIB [...]
--- OUTSIDE RECORDS SUMMARY | 2025-05-30 06:59 | XMS_ITS | Clinical Summary ---
Author Organization [facility] Address [address] [place] [address] [place] [address] Phone Care Team Providers Care Parts Chaser Name Role Phone Ila Holguin MD Primary Care Provider [phone] Allergies No known active allergies Medications allopurinol [...] mouth nightly at bedtime. Active multivitamins-m inerals-folic xadl-zmiwhfg-dh tein (COMPLETE SENIOR) 0.4 mg-300 mcg- 250 [...] Plan (05/22/2022 4:58 PM EST): Presents from [facility] after having had urinary frequency, suprapubic pain, and fatigue, increased confusion, febrile to 101F there, decreased blood pressure, with urinalysis consistent with UTI. Received 1 dose of ciprofloxacin at 8 PM at 05/18/2022. UC from [facility], Ecoli. Similar on culture taken on admit, BC all negative. Some resistance, but susceptible to rocephin. Same for today. Need to keep kidney function in mind when choosing to deescalate. ? To be answered is if this is acute cystitis or more complicated UTI, as he has had multiple. Requested the last 4 discharge summaries from [facility]. His daughter has a huge amount [...] predisposing him to UTI Urine culture demonstrating [id number] colonies E. coli, resistant to amp, amp sulbactam -- On ceftriaxone, de-escalate to Ceftin -- Urology consult requested Acute kidney injury 05/11/2022 Assessment & Plan (05/22/2022 4:54 PM EST): Patient has had recent ESRD with hemodialysis treatments X8, at discharge to [facility] previously was at creatinine of 1.7 presents now with creatinine of 2.4 in setting of likely dehydration and complicated UTI. CRE is trending down with IVF and tx of UTI. If this trend continues, no need for imaging. Renal function improving with creatinine today 1.8 --Continue daily labs Assessment & Plan (05/11/2022 4:12 PM EDT): Recent KHADRA requiring hemodialysis during [facility] hospitalization. Per daughter, received 6 treatments. [...] delerium as well documented in notes from [facility] where this was ongoing and not [...] 4:10 PM EDT): On presentation 04/22 at [facility] Completed daptomycin on 05/10 --Due for [...] skin thickness with weeping and oozing Per [facility] notes: Recommend Aquacel Ag covered by [...] Routine 06/27/2022 5:45 AM EST Atherosclerosis of [place] coronary artery without angina pectoris, unspecified whether [place] or transplanted heart 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 HEMOGLOBIN A1C Routine 05/20/2022 6:27 AM EST from Last 3 Months or Most Recently Relevant to Health Maintenance Results * (ABNORMAL) Basic metabolic panel (06/27/2022 5:45 AM EST) SODIUM 136 133 - 146 mmol/L [facility] CHLORIDE 104 96 - 108 mmol/L [facility] POTASSIUM 4.8 3.3 - 5.1 mmol/L [facility] CO2 23 21 - 35 mmol/L [facility] BUN 58(H) 6 - 19 mg/dL [facility] CREATININE 2.20(H) 0.5 - 1.5 mg/dL [facility] GLUCOSE 99 70 - 99 mg/dL [facility] CALCIUM 12.3(H) 8.4 - 10.3 mg/dL [facility] EGFR 30(L) >59 mL/min/1.7 3m2 [facility] Comment:Estimated glomerular filtration rate calculated using the CKD-EPI refit equation. ANION GAP 14 10 - 20 mmol/L [facility] Blood 06/27/2022 5:45 AM EST 06/27/2022 8:59 AM EST Ila Holguin MD LAB BLOOD BKR ORDERABLES Final Result [address] [address] * Hemoglobin A1c (05/20/2022 6:27 AM EST) HEMOGLOBIN A1C 5.4 4.3 - 5.8 % [facility] Blood 05/20/2022 6:27 AM EST 05/20/2022 6:44 AM EST us Joseph Christie CNP LAB BLOOD BKR ORDERABLE S Final Result Performing Organization Address City/[facility]/ZIP Co de Phone Number [address] [address] from Last 3 Months or Most Recently Relevant to Health Maintenance Insurance MEDICARE PART A & B [facility] MEDICARE SUPPLEMENT MEDICARE PART A & B Member Subscriber Plan / Payer (Ef fective 2008-Present) Name:Gume Kearns Member ID:[id number] Relation to Subscriber:Self Name:Gume Kearns Subscriber ID:[id number] Payer ID:[id number] Group ID:Not on file Type:Medicare Address: [employer] [address] [place] [address] [place] [address] MEDICARE SUPPLEMENT MEDICARE PART A & B [facility] MEDICARE SUPPLEMENT MEDICARE PART A & B MEDICARE SUPPLEMENT MEDICARE PART A & B MEDICARE SUPPLEMENT MEDICARE PART A & B [facility] MEDICARE SUPPLEMENT MEDICARE PART A & B [facility] MEDICARE SUPPLEMENT MEDICARE PART A & B [facility] MEDICARE SUPPLEMENT MEDICARE PART A & B [facility] MEDICARE SUPPLEMENT Advance Directives For more information, please contact: [phone] (9AM - 5PM [facility], Friday-Friday) Documents on File Type Date Recorded Patient Medical Education Specialist Expl anation MOLST 05/24/2022 1:55 PM Healthcare Proxy 05/14/2022 1:26 PM MOLST 05/12/2022 11:37 AM MICHELLEST DO S 05/10/22 Healthcare Proxy 05/12/2022 11:36 AM ANNY ONTIVEROS [facility] 04/25/22 * DNR/DNI (No CPR/No [...] Agent (Proxy form on file) Care Teams Parts Chaser Relationship Specialty Start Date End Date Ila Holguin MD [address] [place] [address] [email or web address] PCP - General Internal Medicine 05/10/22 Additional Source Comments The information contained in this document represents components of the legal health record. It is not the complete legal health record.[facility]
--- OUTSIDE RECORDS SUMMARY | 2025-05-30 06:59 | XMS_ITS | Encounter Summary ---
Author Organization [facility] Address [address] [place] [address] [place] [address] Phone Care Team Providers Care Clerical Warehouse Worker Name Role Phone Ila Holguin MD Primary Care Provider [phone] Encounter Details Date Type Department Care Team (Late st Contact Info) Description 05/10/2022 Procedure Pass [facility], Ct Scan - [facility] [address] [place] [address] Social History Tobacco Use Types Packs/Day Years [...] 4:06 PM EDT Adilson Castillo, FACUNDO * [place] Suicide Severity Rating Scale (Screener/Recent Self-Report) Question [...] documented as of this encounter Care Teams Clerical Warehouse Worker Relationship Specialty Start Date End Date Ila Holguin MD [address] [place] [address] [email or web address] PCP - General Internal Medicine 05/10/22 documented as of this encounter Additional Source Comments The information contained in this document represents components of the legal health record. It is not the complete legal health record.[facility]
--- OUTSIDE RECORDS SUMMARY | 2025-05-30 06:59 | XMS_ITS | Clinical Summary ---
Author Organization [facility] Address [address] [place] [address] Phone Care Team Providers Care Instructor Flying Name Role Phone Vladimir Keys MD Primary Care Provider [phone] Allergies No known active allergies Medications acetaminophen [...] (09/18/2021): Added automatically from request for surgery [id number] Immunizations Immunization Administration Dates Next Due Influenza, [...] EDT Unless otherwise specified, test(s) performed at: [address] [address] LABEL TACKER: Chris Gomez M.D. For any questions, please call customer service at FREQUENCY:MONTHLY Resulting Agency Comment Specimen source: Blood Brian Saldaña MD LAB BLOOD BANK TEST ORDERABLES F inal Result APS EBONIE PVNMA from Last 3 Months or Most Recently Relevant to Health Maintenance Insurance Medicare [facility] Medicare [facility] Care Teams Instructor Flying Relationship Specialty Start Date End Date Vladimir Keys MD [address] [place] [address], [address] [place], [place] PCP - General 07/24/20
[2025-05-30 07:22] LABS: Hematocrit 30.3 % (42.0-52.0); Hemoglobin 9.5 g/dl (14.0-18.0); Imm Gran Abs Auto 0.01 X10*3/uL (0.00-0.03); Imm Gran Pct Auto 0.3 % (0.0-0.4); Lymphocytes Absolute Auto 0.6 X10*3/uL (1.2-4.9); Mean Corpuscular HGB Conc 31.4 g/dl (31.0-36.0); Mean Corpuscular Hemoglobin 31.6 pg (27.0-33.0); Mean Corpuscular Volume 100.7 fL (80.0-98.0); NRBC Abs Auto 0.000 X10*3/uL (0.0-0.012); NRBC Pct Auto 0.0 /100WBC (0.0-0.2); Platelet Count 139 X10*3/uL (160-400); Red Blood Count 3.01 X10*6/uL (4.60-5.80); White Blood Count 3.9 X10*3/uL (4.8-10.8)
[2025-05-30 07:33] LABS: Anion Gap 11 (12-20); Blood Urea Nitrogen 60 mg/dL (9-16); Calcium 9.7 mg/dL (8.4-10.2); Carbon Dioxide 24 mmol/L (22-29); Chloride 108 mmol/L (96-108); Estimated Glomerular Filt Rate 30; Potassium 4.1 mmol/L (3.3-5.1); Sodium 139 mmol/L (135-145)
== END 2025-05-30 06:54 | disposition home or self-care (01) ==
LOC: HO.HSH2E 06:53
PROVIDERS: Visit Provider Internal Medicine Endocrinology, Diabetes & Metabolism
DX: N18.9 Chronic kidney disease, unspecified (principal)
CPT/HCPCS: 36415; 80048; 85025

== ENCOUNTER 2025-06-07 06:05 | Outpatient (REF) | payer MEDICARE, SELFPAY ==
--- OUTSIDE RECORDS SUMMARY | 2025-06-07 06:09 | XMS_ITS | Clinical Summary ---
Author Organization [facility] ity Address [address] [place] [address] Care Team Providers Care Formula Maker Name Role Phone Unavailable Primary Care Provider [...]
--- OUTSIDE RECORDS SUMMARY | 2025-06-07 06:09 | XMS_ITS | Encounter Summary ---
Author Organization [facility] Address [address] [place] [address] [place] [address] Phone Care Team Providers Care Electronic Parts Salesperson Name Role Phone Ila Holguin MD Primary Care Provider [phone] Encounter Details Date Type Department Care Team (Late st Contact Info) Description 05/10/2022 Procedure Pass [facility], Ct Scan - [facility] [address] [place] [address] Social History Tobacco Use Types Packs/Day Years [...] 4:06 PM EDT Adilson Castillo, FACUNDO * [place] Suicide Severity Rating Scale (Screener/Recent Self-Report) Question [...] documented as of this encounter Care Teams Electronic Parts Salesperson Relationship Specialty Start Date End Date Ila Holguin MD [address] [place] [address] [email or web address] PCP - General Internal Medicine 05/10/22 documented as of this encounter Additional Source Comments The information contained in this document represents components of the legal health record. It is not the complete legal health record.[facility]
--- OUTSIDE RECORDS SUMMARY | 2025-06-07 06:09 | XMS_ITS | Encounter Summary ---
Author Organization [facility] Address [address] [place] [address] Phone Care Team Providers Care Repairer Handtools Name Role Phone Ila Holguin MD Primary Care Provider [phone] Encounter Details Date Type Department Care Team (Latest Contact Info) Description 06/17/2022 Transcribe Orders [facility] Specimen Processing [address] [place] [address] Ila Holguin MD [address] [place] [address] [email or web address] Atrial fibrillation, unspecified type (Primary Dx) Social [...] EST) PT 21.5(H) 10.2 - 12.9 sec [facility] INR 1.9(H) 0.9 - 1.1 [facility] Comment:Therapeutic range fo r oral Vitamin K antagonists: 2.0-3.5 06/17/2022 6:35 AM EST 06/17/2022 8:33 AM EST Ila Holguin MD LAB BLOOD BKR ORDERABLES Final Result Performing Organization Address City/[facility] Co de Phone Number [address] [address] * (ABNORMAL) CBC (06/17/2022 6:35 AM EST) WBC 6.62 4.00 - 11.00 K/uL [facility] RBC 2.83(L) 3.90 - 5.69 M/uL [facility] HGB 8.3(L) 12.4 - 17.3 g/dL [facility] Comment:Called to Purnima Corley and read back HCT 25.8(L) 37.0 - 51.0 % [facility] PLT 242 140 - 430 K/uL [facility] MCV 91.2 78.0 - 97.0 fL [facility] MCH 29.3 25.0 - 33.0 pg [facility] MCHC 32.2 32.0 - 36.0 g/dL [facility] RDW 19.0(H) 11.0 - 15.0 % [facility] MPV 10.5 8.4 - 12.8 fl [facility] 06/17/2022 6:35 AM EST 06/17/2022 8:33 AM EST Ila Holguin MD LAB BLOOD BKR ORDERABLES Final Result Performing Organization Address City/[facility]/ZIP Co de Phone Number [address] [address] * (ABNORMAL) Comprehensive metabolic panel (06/17/2022 6:35 AM EST) SODIUM 139 133 - 146 mmol/L [facility] POTASSIUM 4.7 3.3 - 5.1 mmol/L [facility] CHLORIDE 107 96 - 108 mmol/L [facility] CO2 23 21 - 35 mmol/L [facility] BUN 45(H) 6 - 19 mg/dL [facility] CREATININE 2.20(H) 0.5 - 1.5 mg/dL [facility] GLUCOSE 94 70 - 99 mg/dL [facility] ALBUMIN 2.8(L) 3.9 - 4.8 g/dL [facility] TOTAL PROTEIN 6.1(L) 6.5 - 8.0 g/dL [facility] CALCIUM 11.8(H) 8.4 - 10.3 mg/dL [facility] ALKALINE PHOSPHATASE 94 39 - 117 U/L [facility] TOTAL BILIRUBIN 0.3 0.0 - 1.2 mg/dL [facility] AST 14 0 - 37 U/L [facility] ALT 7 0 - 40 U/L [facility] GLOBULIN 3.3 1 - 4.8 g/dL [facility] EGFR 30(L) >59 mL/min/1.7 3m2 [facility] Comment:Estimated glomerular filtration rate calculated using the CKD-EPI refit equation. ANION GAP 14 10 - 20 mmol/L [facility] 06/17/2022 6:35 AM EST 06/17/2022 8:33 AM EST Ila Holguin MD LAB BLOOD BKR ORDERABLES Final Result Performing Organization Address City/State/[facility] Co de Phone Number [facility] [address] [place] [address] documented in this encounter Visit Diagnoses Diagnosis Atrial fibrillation, unspecified type- Primary documented in this encounter Care Teams Repairer Handtools Relationship Specialty Start Date End Date Ila Holguin MD [address] [place] [address] PCP - General Internal Medicine 05/10/22 documented as of this encounter Additional Source Comments The information contained in this document represents components of the legal health record. It is not the complete legal health record.[facility]
--- OUTSIDE RECORDS SUMMARY | 2025-06-07 06:09 | XMS_ITS | Clinical Summary ---
Author Organization [facility] Address [address] [place] [address] [place] [address] Phone Care Team Providers Care Wire Winding Machine Operator Name Role Phone Ila Holguin MD Primary Care Provider Allergies No known active allergies Medications allopurinol [...] mouth nightly at bedtime. Active multivitamins-m inerals-folic cmsn-sumbkgh-en tein (COMPLETE SENIOR) 0.4 mg-300 mcg- 250 [...] Plan (05/22/2022 4:58 PM EST): Presents from [facility] after having had urinary frequency, suprapubic pain, and fatigue, increased confusion, febrile to 101F there, decreased blood pressure, with urinalysis consistent with UTI. Received 1 dose of ciprofloxacin at 8 PM at 05/18/2022. UC from [facility], Ecoli. Similar on culture taken on admit, BC all negative. Some resistance, but susceptible to rocephin. Same for today. Need to keep kidney function in mind when choosing to deescalate. ? To be answered is if this is acute cystitis or more complicated UTI, as he has had multiple. Requested the last 4 discharge summaries from [facility]. His daughter has a huge amount [...] is essentially been hospitalized or in a residential facility since August it has not happened. She was wondering if we can have that done while here if it is something that is predisposing him to UTI Urine culture demonstrating [id number] colonies E. coli, resistant to amp, amp sulbactam -- On ceftriaxone, de-escalate to Ceftin -- Urology consult requested Acute kidney injury 05/11/2022 Assessment & Plan (05/22/2022 4:54 PM EST): Patient has had recent ESRD with hemodialysis treatments X8, at discharge to [facility] previously was at creatinine of 1.7 presents now with creatinine of 2.4 in setting of likely dehydration and complicated UTI. CRE is trending down with IVF and tx of UTI. If this trend continues, no need for imaging. Renal function improving with creatinine today 1.8 --Continue daily labs Assessment & Plan (05/11/2022 4:12 PM EDT): Recent KHADRA requiring hemodialysis during [facility] hospitalization. Per daughter, received 6 treatments. 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 CHLORIDE 104 96 - 108 mmol/L [facility] POTASSIUM 4.8 3.3 - 5.1 mmol/L [facility] CO2 23 21 - 35 mmol/L [facility] BUN 58(H) 6 - 19 mg/dL [facility] CREATININE 2.20(H) 0.5 - 1.5 mg/dL [facility] GLUCOSE 99 70 - 99 mg/dL [facility] CALCIUM 12.3(H) 8.4 - 10.3 mg/dL [facility] EGFR 30(L) >59 mL/min/1.7 3m2 [facility] Comment:Estimated glomerular filtration rate calculated using the CKD-EPI refit equation. ANION GAP 14 10 - 20 mmol/L [facility] Blood 06/27/2022 5:45 AM EST 06/27/2022 8:59 AM EST us Ila Holguin MD LAB BLOOD BKR ORDERABLES Final Result [facility] [address] [place] [address] * Hemoglobin A1c (05/20/2022 6:27 AM EST) HEMOGLOBIN A1C 5.4 4.3 - 5.8 % [facility] Blood 05/20/2022 6:27 AM EST 05/20/2022 6:44 AM EST us Joseph Christie AIR TRAFFIC SYSTEMS TECHNICIAN LAB BLOOD BKR ORDERABLE S Final Result [facility] [address] [place] [address] from Last 3 Months or Most Recently Relevant to Health Maintenance Insurance MEDICARE [place] [id number] [facility] MEDICARE SUPPLEMENT MEDICARE PART A & B [id number] [place] [address] MEDICARE SUPPLEMENT MEDICARE PART A & B [facility] MEDICARE SUPPLEMENT MEDICARE PART A & B MEDICARE SUPPLEMENT MEDICARE PART A & B [facility] MEDICARE SUPPLEMENT MEDICARE PART A & B [facility] MEDICARE SUPPLEMENT MEDICARE PART A & B [facility] MEDICARE SUPPLEMENT MEDICARE PART A & B [facility] MEDICARE SUPPLEMENT MEDICARE PART A & B [facility] MEDICARE SUPPLEMENT [facility] Address: [facility] [employer] [address] [place] [address] Advance Directives For more information, please contact: [phone] (9AM - 5PM [facility], Friday-Friday) Documents on File Type Date Recorded Patient Telegraphic Typewriter Mechanic Expl anation MOLST 05/24/2022 1:55 PM Healthcare Proxy 05/14/2022 1:26 PM MOLST 05/12/2022 11:37 AM MOLST DO S 05/10/22 Healthcare Proxy 05/12/2022 11:36 AM [facility] 04/25/22 * DNR/DNI (No CPR/No [...] Agent (Proxy form on file) Care Teams Wire Winding Machine Operator Relationship Specialty Start Date End Date Ila Holguin MD [address] [place] [address] [email or web address] PCP - General Internal Medicine 05/10/22 Additional Source Comments The information contained in this document represents components of the legal health record. It is not the complete legal health record.[facility]
[2025-06-07 06:34] LABS: INTERNATIONAL NORM RATIO 2.3 (0.9-1.1); Prothrombin Time 27.4 SEC (11.2-13.5)
== END 2025-06-07 06:06 | disposition home or self-care (01) ==
LOC: HO.HSH2E 06:05
PROVIDERS: Visit Provider Internal Medicine Endocrinology, Diabetes & Metabolism
DX: Z95.2 Presence of prosthetic heart valve (principal)
CPT/HCPCS: 36415; 85610

== ENCOUNTER 2025-06-13 07:25 | Outpatient (REF) | payer MEDICARE, SELFPAY ==
--- OUTSIDE RECORDS SUMMARY | 2025-06-14 07:29 | XMS_ITS | Encounter Summary ---
Author Organization [facility] Address [address] [place] [address] [place] [address] Phone Care Team Providers Care Supervisor Wood Crew Name Role Phone Ila Holguin MD Primary Care Provider [phone] Encounter Details Date Type Department Care Team (Latest Contact Info) Description 06/17/2022 Transcribe Orders [facility] Specimen Processing [address] [place] [address] Ila Holguin MD [address] [place] [address] [email or web address] Atrial fibrillation, unspecified type (Primary Dx) Social [...] EST) PT 21.5(H) 10.2 - 12.9 sec [facility] INR 1.9(H) 0.9 - 1.1 [facility] Comment:Therapeutic range fo r oral Vitamin K antagonists: 2.0-3.5 06/17/2022 6:35 AM EST 06/17/2022 8:33 AM EST Ila Holguin MD LAB BLOOD BKR ORDERABLES Final Result Performing Organization Address City/[facility] Co de Phone Number [address] [address] * (ABNORMAL) CBC (06/17/2022 6:35 AM EST) WBC 6.62 4.00 - 11.00 K/uL [facility] RBC 2.83(L) 3.90 - 5.69 M/uL [facility] HGB 8.3(L) 12.4 - 17.3 g/dL [facility] Comment:Called to Purnima Corley and read back HCT 25.8(L) 37.0 - 51.0 % [facility] PLT 242 140 - 430 K/uL [facility] MCV 91.2 78.0 - 97.0 fL [facility] MCH 29.3 25.0 - 33.0 pg [facility] MCHC 32.2 32.0 - 36.0 g/dL [facility] RDW 19.0(H) 11.0 - 15.0 % [facility] MPV 10.5 8.4 - 12.8 fl [facility] 06/17/2022 6:35 AM EST 06/17/2022 8:33 AM EST Ila Holguin MD LAB BLOOD BKR ORDERABLES Final Result Performing Organization Address City/[facility]/ZIP Co de Phone Number [address] [address] * (ABNORMAL) Comprehensive metabolic panel (06/17/2022 6:35 AM EST) SODIUM 139 133 - 146 mmol/L [facility] POTASSIUM 4.7 3.3 - 5.1 mmol/L [facility] CHLORIDE 107 96 - 108 mmol/L [facility] CO2 23 21 - 35 mmol/L [facility] BUN 45(H) 6 - 19 mg/dL [facility] CREATININE 2.20(H) 0.5 - 1.5 mg/dL [facility] GLUCOSE 94 70 - 99 mg/dL [facility] ALBUMIN 2.8(L) 3.9 - 4.8 g/dL [facility] TOTAL PROTEIN 6.1(L) 6.5 - 8.0 g/dL [facility] CALCIUM 11.8(H) 8.4 - 10.3 mg/dL [facility] ALKALINE PHOSPHATASE 94 39 - 117 U/L [facility] TOTAL BILIRUBIN 0.3 0.0 - 1.2 mg/dL [facility] AST 14 0 - 37 U/L [facility] ALT 7 0 - 40 U/L [facility] GLOBULIN 3.3 1 - 4.8 g/dL [facility] EGFR 30(L) >59 mL/min/1.7 3m2 [facility] Comment:Estimated glomerular filtration rate calculated using the CKD-EPI refit equation. ANION GAP 14 10 - 20 mmol/L [facility] 06/17/2022 6:35 AM EST 06/17/2022 8:33 AM EST Ila Holguin MD LAB BLOOD BKR ORDERABLES Final Result Performing Organization Address City/State/[facility] Co de Phone Number [address] [address] documented in this encounter Visit Diagnoses Diagnosis Atrial fibrillation, unspecified type- Primary documented in this encounter Care Teams Supervisor Wood Crew Relationship Specialty Start Date End Date Ila Holguin MD PCP - General Internal Medicine 05/10/22 documented as of this encounter Additional Source Comments The information contained in this document represents components of the legal health record. It is not the complete legal health record.[facility]
--- OUTSIDE RECORDS SUMMARY | 2025-06-14 07:29 | XMS_ITS | Clinical Summary ---
Author Organization [facility] Address [address] [place] [address] [place] [address] Phone Care Team Providers Care Solar Process Engineer Name Role Phone Ila Holguin MD Primary Care Provider [phone] Allergies No known active allergies Medications allopurinol [...] mouth nightly at bedtime. Active multivitamins-m inerals-folic kskm-keanexi-xh tein (COMPLETE SENIOR) 0.4 mg-300 mcg- 250 [...] Plan (05/22/2022 4:58 PM EST): Presents from [facility] after having had urinary frequency, suprapubic pain, and fatigue, increased confusion, febrile to 101F there, decreased blood pressure, with urinalysis consistent with UTI. Received 1 dose of ciprofloxacin at 8 PM at 05/18/2022. UC from [facility], Ecoli. Similar on culture taken on admit, BC all negative. Some resistance, but susceptible to rocephin. Same for today. Need to keep kidney function in mind when choosing to deescalate. ? To be answered is if this is acute cystitis or more complicated UTI, as he has had multiple. Requested the last 4 discharge summaries from [facility]. His daughter has a huge amount of [...] is essentially been hospitalized or in a detention facility since August it has not happened. She was wondering if we can have that done while here if it is something that is predisposing him to UTI Urine culture demonstrating [id number] colonies E. coli, resistant to amp, amp sulbactam -- On ceftriaxone, de-escalate to Ceftin -- Urology consult requested Acute kidney injury 05/11/2022 Assessment & Plan (05/22/2022 4:54 PM EST): Patient has had recent ESRD with hemodialysis treatments X8, at discharge to [facility] previously was at creatinine of 1.7 presents now with creatinine of 2.4 in setting of likely dehydration and complicated UTI. CRE is trending down with IVF and tx of UTI. If this trend continues, no need for imaging. Renal function improving with creatinine today 1.8 --Continue daily labs Assessment & Plan (05/11/2022 4:12 PM EDT): Recent KHADRA requiring hemodialysis during [facility] hospitalization. Per daughter, received 6 treatments. -- [...] delerium as well documented in notes from [facility] where this was ongoing and not changed. [...] 4:10 PM EDT): On presentation 04/22 at [facility] Completed daptomycin on 05/10 --Due for blood [...] skin thickness with weeping and oozing Per [facility] notes: Recommend Aquacel Ag covered by none [...] 3:43 PM EST Oxygen Saturation 99% 05/23/2022 3: 43 PM EST Inhaled Oxygen Concentration - - [...] Routine 06/27/2022 5:45 AM EST Atherosclerosis of [place] coronary artery without angina pectoris, unspecified whether navajo or transplanted heart Valvular endocarditis Nodular calcific [...] [facility] [address] [place] [address] * Hemoglobin A1c (05/20/2022 6:27 AM EST) HEMOGLOBIN A1C 5.4 4.3 - 5.8 % [facility] Blood 05/20/2022 6:27 AM EST 05/20/2022 6:44 AM EST us Joseph Christie LINING PARTS SEWER LAB BLOOD BKR ORDERABLE S Final Result [facility] [address] [place] [address] from Last 3 Months or Most Recently Relevant to Health Maintenance Insurance MED[place] [id number] [facility] MEDICARE SUPPLEMENT MEDICARE PART A & B [id number] [place] [address] MEDICARE SUPPLEMENT MEDICARE PART A & B [facility] MEDICARE SUPPLEMENT MEDICARE PART A & B MEDICARE SUPPLEMENT MEDICARE PART A & B [facility] MEDICARE SUPPLEMENT MEDICARE PART A & B [facility] MEDICARE SUPPLEMENT MEDICARE PART A & B [facility] MEDICARE SUPPLEMENT MEDICARE PART A & B [facility] MEDICARE SUPPLEMENT MEDICARE PART A & B [facility] MEDICARE SUPPLEMENT Advance Directives For more information, please contact: [phone] (9AM - 5PM [facility], Friday-Friday) Documents on File Type Date Recorded Patient Wirer Expl anation MOLST 05/24/2022 1:55 PM Healthcare Proxy 05/14/2022 1:26 PM MOLST 05/12/2022 11:37 AM MOLST DO S 05/10/22 Healthcare Proxy 05/12/2022 11:36 AM [facility] 04/25/22 * DNR/DNI (No CPR/No [...] Agent (Proxy form on file) Care Teams Solar Process Engineer Relationship Specialty Start Date End Date Ila Holguin MD [email or web address] PCP - General Internal Medicine 05/10/22 Additional Source Comments The information contained in this document represents components of the legal health record. It is not the complete legal health record.[facility]
--- OUTSIDE RECORDS SUMMARY | 2025-06-14 07:29 | XMS_ITS | Clinical Summary ---
Author Organization [facility] ity Address [address] [place] [address] Care Team Providers Care Anodiser Name Role Phone Unavailable Primary Care Provider [...]
--- OUTSIDE RECORDS SUMMARY | 2025-06-14 07:29 | XMS_ITS | Encounter Summary ---
Author Organization [facility] Address [address] [place] [address] [place] [address] Phone Care Team Providers Care Syrup Blender Name Role Phone Ila Holguin MD Primary Care Provider [phone] Encounter Details Date Type Department Care Team (Late st Contact Info) Description 05/10/2022 Procedure Pass [facility], Ct Scan - [facility] [address] [place] [address] Social History Tobacco Use Types Packs/Day Years [...] 4:06 PM EDT Adilson Castillo, FACUNDO * [place] Suicide Severity Rating Scale (Screener/Recent Self-Report) Question Answer Date of Assessment Author 1. Wish to be (Past 1 Month) No 05/10/2022 4:06 PM EDT Adilson Shah, FACUNDO 2. Non-Specific Active Suicidal Thoughts (Past 1 Month) No 05/10/2022 4:06 PM EDT Annamarie Shah, FACUNDO 6. Suicidal Behavior (Lifetime) No 05/10/2022 4:06 PM Adilson Flores RN documented as of this encounter Plan of Treatment Not on file documented as of this encounter Visit Diagnoses Not on filedocumented in this encounter Additional Health Concerns Infection Onset Date Last Indicated Resolved Time CoV-Risk 05/19/2022 05/19/2022 05/20/2022 10:1 4 AM EST documented as of this encounter Care Teams Syrup Blender Relationship Specialty Start Date End Date Ila Holguin MD [email or web address] PCP - General Internal Medicine 05/10/22 documented as of this encounter Additional Source Comments The information contained in this document represents components of the legal health record. It is not the complete legal health record.[facility]
== END 2025-06-13 07:26 | disposition home or self-care (01) ==
LOC: HO.HSH2E 07:25
PROVIDERS: Visit Provider Internal Medicine Endocrinology, Diabetes & Metabolism
DX: R30.0 Dysuria (principal)
CPT/HCPCS: 87086

== ENCOUNTER 2025-06-20 06:17 | Outpatient (REF) | payer MEDICARE, SELFPAY ==
[2025-06-20 06:22] LABS: MANUAL DIFF FLAG NO
[2025-06-20 06:57] LABS: Hematocrit 30.6 % (42.0-52.0); Hemoglobin 9.6 g/dl (14.0-18.0); Imm Gran Abs Auto 0.01 X10*3/uL (0.00-0.03); Imm Gran Pct Auto 0.2 % (0.0-0.4); Lymphocytes Absolute Auto 0.8 X10*3/uL (1.2-4.9); Mean Corpuscular HGB Conc 31.4 g/dl (31.0-36.0); Mean Corpuscular Hemoglobin 31.0 pg (27.0-33.0); Mean Corpuscular Volume 98.7 fL (80.0-98.0); NRBC Abs Auto 0.000 X10*3/uL (0.0-0.012); NRBC Pct Auto 0.0 /100WBC (0.0-0.2); Platelet Count 154 X10*3/uL (160-400); Red Blood Count 3.10 X10*6/uL (4.60-5.80); White Blood Count 5.2 X10*3/uL (4.8-10.8)
[2025-06-20 07:03] LABS: Anion Gap 14 (12-20); Blood Urea Nitrogen 59 mg/dL (9-16); Calcium 9.5 mg/dL (8.4-10.2); Carbon Dioxide 23 mmol/L (22-29); Chloride 105 mmol/L (96-108); Estimated Glomerular Filt Rate 22; Potassium 4.7 mmol/L (3.3-5.1); Sodium 137 mmol/L (135-145)
== END 2025-06-20 06:18 | disposition home or self-care (01) ==
LOC: HO.HSH2E 06:17
PROVIDERS: Visit Provider Internal Medicine Endocrinology, Diabetes & Metabolism
DX: I25.10 Atherosclerotic heart disease of native coronary artery without angina pectoris (principal); I87.2 Venous insufficiency (chronic) (peripheral); Z95.2 Presence of prosthetic heart valve
CPT/HCPCS: 36415; 80048; 85025

== ENCOUNTER 2025-06-22 06:00 | Outpatient (REF) | payer MEDICARE, SELFPAY ==
--- OUTSIDE RECORDS SUMMARY | 2025-06-22 06:05 | XMS_ITS | Clinical Summary ---
Author Organization [facility] ity Address [address] [place] [address] Care Team Providers Care Centerless Grinder Operator Name Role Phone Unavailable Primary Care [...]
--- OUTSIDE RECORDS SUMMARY | 2025-06-22 06:05 | XMS_ITS | Encounter Summary ---
Author Organization [facility] Address [address] [place] [address] [place] [address] Phone Care Team Providers Care Vice President Of Software Engineering Name Role Phone Ila Holguin MD Primary Care Provider [phone] Encounter Details Date Type Department Care Team (Latest Contact Info) Description 06/17/2022 Transcribe Orders [facility] Specimen Processing [address] [place] [address] Ila Holguin MD [address] [place] [address] [email or web address] Atrial fibrillation, unspecified type (Primary Dx) Social [...] BKR ORDERABLES Final Result Performing Organization Address City/[facility] Co de Phone Number [address] [address] * (ABNORMAL) CBC (06/17/2022 6:35 AM EST) [...] BKR ORDERABLES Final Result Performing Organization Address City/[facility]/ZIP Co de Phone Number [address] [address] * (ABNORMAL) Comprehensive metabolic panel (06/17/2022 6:35 [...] BKR ORDERABLES Final Result Performing Organization Address City/State/[facility] Co de Phone Number [facility] [address] [place] [address] documented in this encounter Visit Diagnoses Diagnosis Atrial fibrillation, unspecified type- Primary documented in this encounter Care Teams Vice President Of Software Engineering Relationship Specialty Start Date End Date Ila Holguin MD [address] [place] [address] PCP - General Internal Medicine 05/10/22 documented as of this encounter Additional Source Comments The information contained in this document represents components of the legal health record. It is not the complete legal health record.[facility]
--- OUTSIDE RECORDS SUMMARY | 2025-06-22 06:05 | XMS_ITS | Encounter Summary ---
Author Organization [facility] Address [address] [place] [address] [place] [address] Phone Care Team Providers Care Production Cloth Cutter Name Role Phone Ila Holguin MD Primary Care Provider [phone] Encounter Details Date Type Department Care Team (Late st Contact Info) Description 05/10/2022 Procedure Pass [facility], Ct Scan - [facility] [address] [place] [address] Social History Tobacco Use Types Packs/Day Years [...] 4:06 PM EDT Adilson Castillo, FACUNDO * [place] Suicide Severity Rating Scale (Screener/Recent Self-Report) Question [...] documented as of this encounter Care Teams Production Cloth Cutter Relationship Specialty Start Date End Date Ila Holguin MD [address] [place] [address] [email or web address] PCP - General Internal Medicine 05/10/22 documented as of this encounter Additional Source Comments The information contained in this document represents components of the legal health record. It is not the complete legal health record.[facility]
--- OUTSIDE RECORDS SUMMARY | 2025-06-22 06:05 | XMS_ITS | Clinical Summary ---
Author Organization [facility] Address [address] [place] [address] [place] [address] Phone Care Team Providers Care Arborist Representative Name Role Phone Ila Holguin MD Primary Care Provider [phone] Allergies No known active allergies Medications allopurinol [...] mouth nightly at bedtime. Active multivitamins-m inerals-folic vnog-becwwjw-lc tein (COMPLETE SENIOR) 0.4 mg-300 mcg- 250 [...] PM EST): Presents from [facility] after having had urinary frequency, suprapubic pain, and fatigue, increased confusion, febrile to 101F there, decreased blood pressure, with urinalysis consistent with UTI. Received 1 dose of ciprofloxacin at 8 PM at 05/18/2022. UC from [facility], Ecoli. Similar on culture taken on admit, BC all negative. Some resistance, but susceptible to rocephin. Same for today. Need to keep kidney function in mind when choosing to deescalate. ? To be answered is if this is acute cystitis or more complicated UTI, as he has had multiple. Requested the last 4 discharge summaries from [facility]. His daughter has a huge amount [...] is essentially been hospitalized or in a longterm facility since August it has not happened. She was wondering if we can have that done while here if it is something that is predisposing him to UTI Urine culture demonstrating [id number] colonies E. coli, resistant to amp, amp sulbactam -- On ceftriaxone, de-escalate to Ceftin -- Urology consult requested Acute kidney injury 05/11/2022 Assessment & Plan (05/22/2022 4:54 PM EST): Patient has had recent ESRD with hemodialysis treatments X8, at discharge to [facility] previously was at creatinine of 1.7 presents now with creatinine of 2.4 in setting of likely dehydration and complicated UTI. CRE is trending down with IVF and tx of UTI. If this trend continues, no need for imaging. Renal function improving with creatinine today 1.8 --Continue daily labs Assessment & Plan (05/11/2022 4:12 PM EDT): Recent KHADRA requiring hemodialysis during [facility] hospitalization. Per daughter, received 6 treatments. [...] delerium as well documented in notes from [facility] where this was ongoing and not [...] 4:10 PM EDT): On presentation 04/22 at [facility] Completed daptomycin on 05/10 --Due for [...] skin thickness with weeping and oozing Per [facility] notes: Recommend Aquacel Ag covered by [...] MD LAB BLOOD BKR ORDERABLES Final Result [facility] [address] [place] [address] * Hemoglobin A1c (05/20/2022 6:27 AM EST) HEMOGLOBIN A1C 5.4 4.3 - 5.8 % [facility] Blood 05/20/2022 6:27 AM EST 05/20/2022 6:44 AM EST us Joseph Christie ACTION INSTALLER LAB BLOOD BKR ORDERABLE S Final Result [facility] [address] [place] [address] from Last 3 Months or Most Recently Relevant to Health Maintenance Insurance [place] [id number] [facility] MEDICARE SUPPLEMENT MEDICARE PART A & B [id number] [place] [address] MEDICARE SUPPLEMENT MEDICARE PART A & B [facility] MEDICARE SUPPLEMENT MEDICARE PART A & B MEDICARE SUPPLEMENT MEDICARE PART A & B [facility] MEDICARE SUPPLEMENT MEDICARE PART A & B [facility] MEDICARE SUPPLEMENT MEDICARE PART A & B [facility] MEDICARE SUPPLEMENT MEDICARE PART A & B [facility] MEDICARE SUPPLEMENT MEDICARE PART A & B [facility] MEDICARE SUPPLEMENT Advance Directives For more information, please contact: [phone] (9AM - 5PM [facility], Friday-Friday) Documents on File Type Date Recorded Patient Washery Boss Expl anation MOLST 05/24/2022 1:55 PM Healthcare Proxy 05/14/2022 1:26 PM MOLST 05/12/2022 11:37 AM MOLST DO S 05/10/22 Healthcare Proxy 05/12/2022 11:36 AM ANNY ONTIVEROS [facility] 04/25/22 * DNR/DNI (No CPR/No Intubation) [...] Agent (Proxy form on file) Care Teams Arborist Representative Relationship Specialty Start Date End Date Ila Holguin MD [address] [place] [address] [email or web address] PCP - General Internal Medicine 05/10/22 Additional Source Comments The information contained in this document represents components of the legal health record. It is not the complete legal health record.[facility]
--- OUTSIDE RECORDS SUMMARY | 2025-06-22 06:05 | XMS_ITS | Clinical Summary ---
Author Organization [facility] Address [address] [place] [address] Phone Care Team Providers Care Lithographic Photographer Apprentice Name Role Phone Vladimir Keys MD Primary Care Provider [phone] Allergies No known active allergies Medications acetaminophen [...] (09/18/2021): Added automatically from request for surgery [id number] Immunizations Immunization Administration Dates Next Due Influenza, Unspecified 04/24/2021,2019,03/14/2017,03/31/2016, 5 Pfizer SARS-COV-2 11/21/2020,10/29/2020 Family History Medical History Relation Comments Diabetes Father Heart disease Father [place] Stroke Mother Relation Status Comments Father Mother [...] EDT Unless otherwise specified, test(s) performed at: [facility] [address] PROGRAM MANAGER RN: Chris Gomez M.D. For any questions, please call customer service at FREQUENCY:MONTHLY Resulting Agency Comment Specimen source: Blood Brian Saldaña MD LAB BLOOD BANK TEST ORDERABLES F inal Result [facility] from Last 3 Months or Most Recently Relevant to Health Maintenance Insurance Medicare [facility] Medicare [facility] Care Teams Lithographic Photographer Apprentice Relationship Specialty Start Date End Date Vladimir Keys MD [address] [place] [address], [address] [place], [place] PCP - General 07/24/20
[2025-06-22 06:22] LABS: INTERNATIONAL NORM RATIO 2.4 (0.9-1.1); Prothrombin Time 29.1 SEC (11.2-13.5)
== END 2025-06-22 06:01 | disposition home or self-care (01) ==
LOC: HO.HSH2E 06:00
PROVIDERS: Visit Provider Internal Medicine Endocrinology, Diabetes & Metabolism
DX: Z95.2 Presence of prosthetic heart valve (principal)
CPT/HCPCS: 36415; 85610

== ENCOUNTER 2025-07-06 05:36 | Outpatient (REF) | payer MEDICARE, SELFPAY ==
--- OUTSIDE RECORDS SUMMARY | 2025-07-06 05:40 | XMS_ITS | Clinical Summary ---
Author Organization [facility] ity Address [address] [place] [address] Care Team Providers Care Entry Level Paralegal Name Role Phone Unavailable Primary Care Provider [...]
--- OUTSIDE RECORDS SUMMARY | 2025-07-06 05:40 | XMS_ITS | Clinical Summary ---
Author Organization [facility] Address [address] [place] [address] [place] [address] Phone Care Team Providers Care Key Account Manager Name Role Phone Ila Holguin MD Primary Care Provider [phone] Allergies No known active allergies Medications allopurinol [...] mouth nightly at bedtime. Active multivitamins-m inerals-folic jnnn-rotoscv-br tein (COMPLETE SENIOR) 0.4 mg-300 mcg- 250 [...] Plan (05/22/2022 4:58 PM EST): Presents from [facility] after having had urinary frequency, suprapubic [...] Requested the last 4 discharge summaries from [facility]. His daughter has a huge [...] predisposing him to UTI Urine culture demonstrating [id number] colonies E. coli, resistant to amp, amp sulbactam -- On ceftriaxone, de-escalate to Ceftin -- Urology consult requested Acute kidney injury 05/11/2022 Assessment & Plan (05/22/2022 4:54 PM EST): Patient has had recent ESRD with hemodialysis treatments X8, at discharge to [facility] previously was at creatinine of 1.7 presents now with creatinine of 2.4 in setting of likely dehydration and complicated UTI. CRE is trending down with IVF and tx of UTI. If this trend continues, no need for imaging. Renal function improving with creatinine today 1.8 --Continue daily labs Assessment & Plan (05/11/2022 4:12 PM EDT): Recent KHADRA requiring hemodialysis during [facility] hospitalization. 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 HEMOGLOBIN A1C Routine 05/20/2022 6:27 AM EST from Last 3 Months or Most Recently Relevant to Health Maintenance Results * (ABNORMAL) Basic metabolic panel (06/27/2022 5:45 AM EST) SODIUM 136 133 - 146 mmol/L [facility] CHLORIDE 104 96 - 108 mmol/L [facility] POTASSIUM 4.8 3.3 - 5.1 mmol/L [facility] CO2 23 21 - 35 mmol/L [facility] BUN 58(H) 6 - 19 mg/dL [facility] CREATININE 2.20(H) 0.5 - 1.5 mg/dL [facility] GLUCOSE 99 70 - 99 mg/dL [facility] CALCIUM 12.3(H) 8.4 - 10.3 mg/dL [facility] EGFR 30(L) >59 mL/min/1.7 3m2 [facility] Comment:Estimated glomerular filtration rate calculated using the CKD-EPI refit equation. ANION GAP 14 10 - 20 mmol/L [facility] Blood 06/27/2022 5:45 AM EST 06/27/2022 8:59 AM EST us Ila Holguin MD LAB BLOOD BKR ORDERABLES Final Result [facility] [address] [place] [address] * Hemoglobin A1c (05/20/2022 6:27 AM EST) HEMOGLOBIN A1C 5.4 4.3 - 5.8 % [facility] Blood 05/20/2022 6:27 AM EST 05/20/2022 6:44 AM EST us Joseph Christie STATE MANAGER LAB BLOOD BKR ORDERABLE S Final Result [facility] [address] [place] [address] from Last 3 Months or Most Recently Relevant to Health Maintenance Insurance MED[place] PART [place] [id number] [facility] MEDICARE SUPPLEMENT MEDICARE PART A & B [id number] [place] [address] MEDICARE SUPPLEMENT MEDICARE PART A & B [facility] MEDICARE SUPPLEMENT MEDICARE PART A & B MEDICARE SUPPLEMENT MEDICARE PART A & B [facility] MEDICARE SUPPLEMENT MEDICARE PART A & B [facility] MEDICARE SUPPLEMENT MEDICARE PART A & B [facility] MEDICARE SUPPLEMENT MEDICARE PART A & B [facility] MEDICARE SUPPLEMENT MEDICARE PART A & B [facility] MEDICARE SUPPLEMENT Advance Directives For more information, please contact: [phone] (9AM - 5PM [facility], Friday-Friday) Documents on File Type Date Recorded Patient Fuels Sales Representative Expl anation MOLST 05/24/2022 1:55 PM Healthcare Proxy 05/14/2022 1:26 PM MOLST 05/12/2022 11:37 AM MOLST DO S 05/10/22 Healthcare Proxy 05/12/2022 11:36 AM ANNY ONTIVEROS [facility] 04/25/22 * DNR/DNI (No CPR/No Intubation) [...] Agent (Proxy form on file) Care Teams Key Account Manager Relationship Specialty Start Date End Date Ila Holguin MD [address] [place] [address] [email or web address] PCP - General Internal Medicine 05/10/22 Additional Source Comments The information contained in this document represents components of the legal health record. It is not the complete legal health record.[facility]
--- OUTSIDE RECORDS SUMMARY | 2025-07-06 05:40 | XMS_ITS | Clinical Summary ---
Author Organization Nivia Recinos [facility] Address [address] [place] [address] Care Team Providers Care Building Serviceman Name Role Phone None, Pcp MD Primary Care Provider Unavailabl e Allergies No known active allergies Medications metFORMIN (GLUCOPHAGE) 1000 MG tabletIndication s:type 2 diabetes mellitus Take 1,000 mg by mouth daily with breakfast. 0 5 Active simvastatin (ZOCOR) 40 MG tablet 0 5 Active glipiZIDE (GLUCOTROL) 10 MG tablet 0 5 Active lisinopril (PRINIVIL,ZESTRI L) 40 MG tablet Take 40 mg by mouth daily. Active carvedilol (COREG) 25 MG tablet Take 25 mg by mouth Every morning and every evening. 0 6 Active acetaminophen (TYLENOL) 325 MG tablet Take 2 tablets (650 mg total) by mouth every 6 (six) hours. 6 Active cholecalciferol (VITAMIN D3) 1,000 unit tablet Take 1,000 Units by mouth daily. Active multivitamin (THERAGRAN) tablet Take 1 tablet by mouth daily. Active metFORMIN (GLUCOPHAGE) 500 MG tabletIndication s:type 2 diabetes mellitus Take 500 mg by mouth at bedtime. Active aspirin 325 MG tablet Take 1 tablet (325 mg total) by mouth every morning & every evening. 60 tablet 1 7 Active docusate sodium (COLACE) 100 MG capsule Take 1 capsule (100 mg total) by mouth every morning & every evening. 7 Active sennosides (SENOKOT) 8.6 mg tablet Take 2 tablets (17.2 mg total) by mouth at bedtime. 7 Active bisacodyl (DULCOLAX) 10 mg suppository Insert 1 suppository (10 mg total) into the rectum daily as needed (constipation; If not tolerating PO). 7 Active oxyCODONE (ROXICODONE) 5 MG immediate release tablet Take 0.5 tablets (2.5 mg total) by mouth every 4 hours as needed for pain. 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 Overview (02/18/2017): Added automatically from request for surgery [id number] Ankle arthritis 01/30/2016 Social History Tobacco Use Types Packs/Day Years Used Date Smoking Tobacco: Former Cigarettes 35.5 S tarted: 01/18/1990 Smokeless Tobacco: Never Alcohol Use Standard Drinks/Week Comments Yes 16 (1 standard drink = 0.6 oz pu re alcohol) Sex and Gender Information Value Date Recorded Sex Assigned at Not on file Legal Sex Male 12:41 PM EDT Gender Identity Not on file Sexual Orientation Not on file Last Filed Vital Signs Vital Sign Reading Time Taken Comments Blood Pressure 155/79 04/06/2017 8:28 AM EDT Pulse 62 04/06/2017 8:28 AM EDT Temperature 36.4 C (97.6 F) 04/06/2017 8:00 AM EDT Respiratory Rate 16 04/06/2017 8:00 AM EDT Oxygen Saturation 98% 04/06/2017 8:00 AM EDT Inhaled Oxygen Concentration - - Weight 154 kg (338 lb 10 oz) 04/02/2017 3:15 PM EDT Height 172.7 cm (5' 7.99 ) 04/02/2017 3:15 PM ED T Body Mass Index 51.5 04/02/2017 3:15 PM EDT Plan of Treatment Not on file Medical Devices Implanted Type Area Moderate Needs Teacher Device Identifier Shelf Expiration Date Model / Serial / Lot Putty Dbx 5ml [id number]) - [id number] Implanted:Qty : 1 on 01/30/2016 by Amarilis Duffy MD at [facility] Allograft Tissue Left: Ankle [employer] 09/01/2017 [id number] / [id number] / N/A Cancellous Preservon Bone Chips 15cc ([id number]) - [id number] Implanted:Qty : 1 on 01/30/2016 by Amarilis Duffy MD at [facility] Bone Left: Ankle [facility] 09/06/[address] [id number] / [id number] Cancellous Preservon Bone Chips 30cc ([id number]) - [id number] Implanted:Qty : 1 on 04/01/2017 by Amarilis Duffy MD at [facility] Bone Left: Foot [facility] 09/25/2021 [id number] / / [id number] Tt Fusion Sm Lt ([id number]) - [id number] Implanted:Qty : 1 on 04/01/2017 by Amarilis Duffy MD at [facility] Plate Left: Ankle [employer] 04/01/2017 [id number] / / 0000 Screw Locking 5.5 X 40mm ([id number]) - [id number] Implanted:Qty : 1 on 04/01/2017 by Amarilis Duffy MD at [facility] Screw Left: Ankle [employer] 04/01/2017 [id number] / / 0000 Screw Locking 5.5 X 20mm ([id number]) - [id number] Implanted:Qty : 1 on 04/01/2017 by Amarilis Duffy MD at [facility] Screw Left: Ankle [employer] 04/01/2017 [id number] / / 0000 Screw Non-Locking 4.5 X 40mm ([id number]) - [id number] Implanted:Qty : 1 on 04/01/2017 by Amarilis Duffy MD at [facility] Screw Left: Ankle [employer] 04/01/2017 [id number] / / 0000 Screw Cortical 5.5 X 45mm ([id number]) - [id number] Implanted:Qty : 2 on 04/01/2017 by Amarilis Duffy MD at [facility] Screw Left: Ankle [employer] 04/01/2017 [id number] / / 0000 Screw Cortical 5.5 X 55mm ([id number]) - [id number] Implanted:Qty : 1 on 04/01/2017 by Amarilis Duffy MD at [facility] Screw Left: Ankle [employer] 04/01/2017 [id number] / / 0000 Explanted Type Area Moderate Needs Teacher Device Identifier Shelf Expiration Date Model / Serial / Lot Screw Cannulated 16mm Thr 7.3mm X 50mm ([id number]) - [id number] Implanted:Qty: 1 on 01/30/2016 by Amarilis Duffy MD at [facility] Explanted:Qty: 1 on 04/01/2017 by Amarilis Duffy MD at [facility] Screw Left: Ankle [employer] 01/29/2017 [id number] / / N/A Screw Cannulated 16mm Thr 7.3mm X 55mm ([id number]) - [id number] Implanted:Qty: 2 on 01/30/2016 by Amarilis Duffy MD at [facility] Explanted:Qty: 2 on 04/01/2017 by Amarilis Duffy MD at [facility] Screw Left: Ankle [employer] 01/29/2017 [id number] / / N/A Screw Cannulated 32mm Thr 7.3mm X 80mm ([id number]) - [id number] Implanted:Qty: 1 on 01/30/2016 by Amarilis Duffy MD at [facility] Explanted:Qty: 1 on 04/01/2017 by Amarilis Duffy MD at [facility] Screw Left: Ankle [employer] 01/29/2017 [id number] / / N/A Insurance MEDICARE [facility] MEDICARE SUPPLEMENT Advance Directives * Full Code (Latest Code Status on File) Date Activated Date Inactivated Comments 04/01/2017 3:47 PM * Full Code Date Activated Date Inactivated Comments 01/30/2016 7:15 AM 2016 2:17 PM Healthcare Agents on File Name Relationship Healthcare Agent [facility] p Communication Yulisa Hollis Daughter Health Care Agent Care Teams Building Serviceman Relationship Specialty Start Date End Date None, PcpMD PCP - General 05/27/18
--- OUTSIDE RECORDS SUMMARY | 2025-07-06 05:40 | XMS_ITS | Encounter Summary ---
Author Organization [facility] Address [address] [place] [address] [place] [address] Phone Care Team Providers Care Gill Box Operator Name Role Phone Ila Holguin MD Primary Care Provider [phone] Encounter Details Date Type Department Care Team (Late st Contact Info) Description 05/10/2022 Procedure Pass [facility], Ct Scan - [facility] [address] [place] [address] Social History Tobacco Use Types Packs/Day Years [...] documented as of this encounter Care Teams Gill Box Operator Relationship Specialty Start Date End Date Ila Holguin MD [address] [place] [address] PCP - General Internal Medicine 05/10/22 documented as of this encounter Additional Source Comments The information contained in this document represents components of the legal health record. It is not the complete legal health record.[facility]
--- OUTSIDE RECORDS SUMMARY | 2025-07-06 05:40 | XMS_ITS | Encounter Summary ---
Author Organization [facility] Address [address] [place] [address] [place] [address] Phone Care Team Providers Care International Account Representative Name Role Phone Ila Holguin MD Primary Care Provider [phone] Encounter Details Date Type Department Care Team (Latest Contact Info) Description 06/17/2022 Transcribe Orders [facility] Specimen Processing [address] [place] [address] Ila Holguin MD [address] [place] [address] [email or web address] Atrial fibrillation, unspecified type (Primary Dx) [...] EST) PT 21.5(H) 10.2 - 12.9 sec [facility] INR 1.9(H) 0.9 - 1.1 [facility] Comment:Therapeutic range fo r oral Vitamin K antagonists: 2.0-3.5 06/17/2022 6:35 AM EST 06/17/2022 8:33 AM EST Ila Holguin MD LAB BLOOD BKR ORDERABLES Final Result Performing Organization Address City/[facility] Co de Phone Number [address] [address] * (ABNORMAL) CBC (06/17/2022 6:35 AM EST) WBC 6.62 4.00 - 11.00 K/uL [facility] RBC 2.83(L) 3.90 - 5.69 M/uL [facility] HGB 8.3(L) 12.4 - 17.3 g/dL [facility] Comment:Called to Purnima Corley and read back HCT 25.8(L) 37.0 - 51.0 % [facility] PLT 242 140 - 430 K/uL [facility] MCV 91.2 78.0 - 97.0 fL [facility] MCH 29.3 25.0 - 33.0 pg [facility] MCHC 32.2 32.0 - 36.0 g/dL [facility] RDW 19.0(H) 11.0 - 15.0 % [facility] MPV 10.5 8.4 - 12.8 fl [facility] 06/17/2022 6:35 AM EST 06/17/2022 8:33 AM EST Ila Holguin MD LAB BLOOD BKR ORDERABLES Final Result Performing Organization Address City/[facility]/ZIP Co de Phone Number [address] [address] * (ABNORMAL) Comprehensive metabolic panel (06/17/2022 6:35 AM EST) SODIUM 139 133 - 146 mmol/L [facility] POTASSIUM 4.7 3.3 - 5.1 mmol/L [facility] CHLORIDE 107 96 - 108 mmol/L [facility] CO2 23 21 - 35 mmol/L [facility] BUN 45(H) 6 - 19 mg/dL [facility] CREATININE 2.20(H) 0.5 - 1.5 mg/dL [facility] GLUCOSE 94 70 - 99 mg/dL [facility] ALBUMIN 2.8(L) 3.9 - 4.8 g/dL [facility] TOTAL PROTEIN 6.1(L) 6.5 - 8.0 g/dL [facility] CALCIUM 11.8(H) 8.4 - 10.3 mg/dL [facility] ALKALINE PHOSPHATASE 94 39 - 117 U/L [facility] TOTAL BILIRUBIN 0.3 0.0 - 1.2 mg/dL [facility] AST 14 0 - 37 U/L [facility] ALT 7 0 - 40 U/L [facility] GLOBULIN 3.3 1 - 4.8 g/dL [facility] EGFR 30(L) >59 mL/min/1.7 3m2 [facility] Comment:Estimated glomerular filtration rate calculated using the CKD-EPI refit equation. ANION GAP 14 10 - 20 mmol/L [facility] 06/17/2022 6:35 AM EST 06/17/2022 8:33 AM EST Ila Holguin MD LAB BLOOD BKR ORDERABLES Final Result Performing Organization Address City/State/[facility] Co de Phone Number [facility] [address] [place] [address] documented in this encounter Visit Diagnoses Diagnosis Atrial fibrillation, unspecified type- Primary documented in this encounter Care Teams International Account Representative Relationship Specialty Start Date End Date Ila Holguin MD [address] [place] [address] PCP - General Internal Medicine 05/10/22 documented as of this encounter Additional Source Comments The information contained in this document represents components of the legal health record. It is not the complete legal health record.[facility]
--- OUTSIDE RECORDS SUMMARY | 2025-07-06 05:40 | XMS_ITS | Encounter Summary ---
Author Organization Nivia Mensah [facility] Address [address] [place] [address] Care Team Providers Care Hydrogen Braze Furnace Operator Name Role Phone Brian Diaz Primary Care Provider [phone] Farrukh Diaz Primary Care Provider [phone] System, Provider Not In Primary Care Provider Un available None, Pcp Primary Care Provider Unavailabl e Encounter Details Date Type Department Care Team (Late st Contact Info) Description 02/18/2016 Documentation Department of Orthopedic Surgery ([address] [place] [address] [address] [place] [address], 2nd [place] [address] Tank Jon MD Social History Tobacco Use Types Packs/Day Years Used Date Smoking Tobacco: Former Cigarettes 35.5 S tarted: 01/18/1990 Alcohol Use Standard Drinks/Week Comments Yes 16 [...] Diagnoses Not on filedocumented in this encounter Care Teams Hydrogen Braze Furnace Operator Relationship Specialty Start Date End Date Brian Diaz [address] [place] [address] PCP - General 10/28/14 05/20/16 Farrukh Diaz [address] [place] [address] PCP - General 05/21/16 12/23/17 System, Provider Not In [address] [place] [address] 1 [place] [address] PCP - General 12/24/17 05/26/18 None, PcpMD [address] [place] [address] 1 [place] [address] PCP - General 05/27/18 documented as of this encounter
[2025-07-06 06:18] LABS: INTERNATIONAL NORM RATIO 2.3 (0.9-1.1); Prothrombin Time 28.0 SEC (11.2-13.5)
== END 2025-07-06 05:37 | disposition home or self-care (01) ==
LOC: HO.HSH2E 05:36
PROVIDERS: Visit Provider Internal Medicine Endocrinology, Diabetes & Metabolism
DX: I48.21 Permanent atrial fibrillation (principal); Z95.2 Presence of prosthetic heart valve
CPT/HCPCS: 36415; 85610

== ENCOUNTER 2025-07-11 06:20 | Outpatient (REF) | payer MEDICARE, SELFPAY ==
[2025-07-11 06:23] LABS: MANUAL DIFF FLAG NO
--- OUTSIDE RECORDS SUMMARY | 2025-07-11 06:23 | XMS_ITS | Clinical Summary ---
Author Organization [facility] Address [address] [place] [address] Phone Care Team Providers Care Minister Assistant Name Role Phone Vladimir Keys MD Primary Care Provider [phone] Allergies No known active allergies Medications acetaminophen [...] (09/18/2021): Added automatically from request for surgery [id number] Immunizations Immunization Administration Dates Next Due Influenza, [...] EDT Unless otherwise specified, test(s) performed at: [facility] [address] BOBBIN TRUCKER: Chris Gomez M.D. For any questions, please call customer service at FREQUENCY:MONTHLY Resulting Agency Comment Specimen source: Blood Brian Saldaña MD LAB BLOOD BANK TEST ORDERABLES F inal Result APS EBONIE PVNMA from Last 3 Months or Most Recently Relevant to Health Maintenance Insurance Medicare [facility] Medicare [facility] Care Teams Minister Assistant Relationship Specialty Start Date End Date Vladimir Keys MD [address] [place] [address], [address] [place], [place] PCP - General 07/24/20
--- OUTSIDE RECORDS SUMMARY | 2025-07-11 06:23 | XMS_ITS | Encounter Summary ---
Author Organization [facility] Address [address] [place] [address] [place] [address] Phone Care Team Providers Care Director Consumer Affairs Name Role Phone Ila Holguin MD Primary Care Provider [phone] Encounter Details Date Type Department Care Team (Latest Contact Info) Description 06/17/2022 Transcribe Orders [facility] Specimen Processing [address] [place] [address] Ila Holguin MD [address] [place] [address] [email or web address] Atrial fibrillation, unspecified type (Primary [...] EST) PT 21.5(H) 10.2 - 12.9 sec [facility] INR 1.9(H) 0.9 - 1.1 [facility] Comment:Therapeutic range fo r oral Vitamin K antagonists: 2.0-3.5 06/17/2022 6:35 AM EST 06/17/2022 8:33 AM EST Ila Holguin MD LAB BLOOD BKR ORDERABLES Final Result Performing Organization Address City/[facility] Co de Phone Number [address] [address] * (ABNORMAL) CBC (06/17/2022 6:35 AM EST) WBC 6.62 4.00 - 11.00 K/uL [facility] RBC 2.83(L) 3.90 - 5.69 M/uL [facility] HGB 8.3(L) 12.4 - 17.3 g/dL [facility] Comment:Called to Purnima Corley and read back HCT 25.8(L) 37.0 - 51.0 % [facility] PLT 242 140 - 430 K/uL [facility] MCV 91.2 78.0 - 97.0 fL [facility] MCH 29.3 25.0 - 33.0 pg [facility] MCHC 32.2 32.0 - 36.0 g/dL [facility] RDW 19.0(H) 11.0 - 15.0 % [facility] MPV 10.5 8.4 - 12.8 fl [facility] 06/17/2022 6:35 AM EST 06/17/2022 8:33 AM EST Ila Holguin MD LAB BLOOD BKR ORDERABLES Final Result Performing Organization Address City/[facility]/ZIP Co de Phone Number [address] [address] * (ABNORMAL) Comprehensive metabolic panel (06/17/2022 6:35 AM EST) SODIUM 139 133 - 146 mmol/L [facility] POTASSIUM 4.7 3.3 - 5.1 mmol/L [facility] CHLORIDE 107 96 - 108 mmol/L [facility] CO2 23 21 - 35 mmol/L [facility] BUN 45(H) 6 - 19 mg/dL [facility] CREATININE 2.20(H) 0.5 - 1.5 mg/dL [facility] GLUCOSE 94 70 - 99 mg/dL [facility] ALBUMIN 2.8(L) 3.9 - 4.8 g/dL [facility] TOTAL PROTEIN 6.1(L) 6.5 - 8.0 g/dL [facility] CALCIUM 11.8(H) 8.4 - 10.3 mg/dL [facility] ALKALINE PHOSPHATASE 94 39 - 117 U/L [facility] TOTAL BILIRUBIN 0.3 0.0 - 1.2 mg/dL [facility] AST 14 0 - 37 U/L [facility] ALT 7 0 - 40 U/L [facility] GLOBULIN 3.3 1 - 4.8 g/dL [facility] EGFR 30(L) >59 mL/min/1.7 3m2 [facility] Comment:Estimated glomerular filtration rate calculated using the CKD-EPI refit equation. ANION GAP 14 10 - 20 mmol/L [facility] 06/17/2022 6:35 AM EST 06/17/2022 8:33 AM EST Ila Holguin MD LAB BLOOD BKR ORDERABLES Final Result Performing Organization Address City/State/[facility] Co de Phone Number [facility] [address] [place] [address] documented in this encounter Visit Diagnoses Diagnosis Atrial fibrillation, unspecified type- Primary documented in this encounter Care Teams Director Consumer Affairs Relationship Specialty Start Date End Date Ila Holguin MD [address] [place] [address] PCP - General Internal Medicine 05/10/22 documented as of this encounter Additional Source Comments The information contained in this document represents components of the legal health record. It is not the complete legal health record.[facility]
--- OUTSIDE RECORDS SUMMARY | 2025-07-11 06:23 | XMS_ITS | Clinical Summary ---
Author Organization [facility] Address [address] [place] [address] [place] [address] Phone Care Team Providers Care Casing Operator Name Role Phone Ila Holguin MD Primary Care Provider [phone] Allergies No known active allergies Medications allopurinol [...] mouth nightly at bedtime. Active multivitamins-m inerals-folic esqz-evqzsss-oo tein (COMPLETE SENIOR) 0.4 mg-300 mcg- 250 [...] Plan (05/22/2022 4:58 PM EST): Presents from [facility] after having had urinary frequency, [...] Requested the last 4 discharge summaries from [facility]. His daughter has a huge amount of [...] is essentially been hospitalized or in a alf facility since August it has not happened. She was wondering if we can have that done while here if it is something that is predisposing him to UTI Urine culture demonstrating [id number] colonies E. coli, resistant to amp, amp sulbactam -- On ceftriaxone, de-escalate to Ceftin -- Urology consult requested Acute kidney injury 05/11/2022 Assessment & Plan (05/22/2022 4:54 PM EST): Patient has had recent ESRD with hemodialysis treatments X8, at discharge to [facility] previously was at creatinine of 1.7 presents now with creatinine of 2.4 in setting of likely dehydration and complicated UTI. CRE is trending down with IVF and tx of UTI. If this trend continues, no need for imaging. Renal function improving with creatinine today 1.8 --Continue daily labs Assessment & Plan (05/11/2022 4:12 PM EDT): Recent KHADRA requiring hemodialysis during [facility] hospitalization. Per daughter, received 6 treatments. -- [...] delerium as well documented in notes from [facility] where this was ongoing and not changed. 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 HEMOGLOBIN A1C Routine 05/20/2022 6:27 AM EST from Last 3 Months or Most Recently Relevant to Health Maintenance Results * (ABNORMAL) Basic metabolic panel (06/27/2022 5:45 AM EST) SODIUM 136 133 - 146 mmol/L [facility] CHLORIDE 104 96 - 108 mmol/L [facility] POTASSIUM 4.8 3.3 - 5.1 mmol/L [facility] CO2 23 21 - 35 mmol/L [facility] BUN 58(H) 6 - 19 mg/dL [facility] CREATININE 2.20(H) 0.5 - 1.5 mg/dL [facility] GLUCOSE 99 70 - 99 mg/dL [facility] CALCIUM 12.3(H) 8.4 - 10.3 mg/dL [facility] EGFR 30(L) >59 mL/min/1.7 3m2 [facility] Comment:Estimated glomerular filtration rate calculated using the CKD-EPI refit equation. ANION GAP 14 10 - 20 mmol/L [facility] Blood 06/27/2022 5:45 AM EST 06/27/2022 8:59 AM EST us Ila Holguin MD LAB BLOOD BKR ORDERABLES Final Result [facility] [address] [place] [address] * Hemoglobin A1c (05/20/2022 6:27 AM EST) HEMOGLOBIN A1C 5.4 4.3 - 5.8 % [facility] Blood 05/20/2022 6:27 AM EST 05/20/2022 6:44 AM EST us Joseph Christie 3D DESIGNER LAB BLOOD BKR ORDERABLE S Final Result [facility] [address] [place] [address] from Last 3 Months or Most Recently Relevant to Health Maintenance Insurance [place] [id number] [facility] MEDICARE SUPPLEMENT MEDICARE PART A & B [id number] [place] [address] MEDICARE SUPPLEMENT MEDICARE PART A & B [facility] MEDICARE SUPPLEMENT MEDICARE PART A & B MEDICARE SUPPLEMENT MEDICARE PART A & B [facility] MEDICARE SUPPLEMENT MEDICARE PART A & B [facility] MEDICARE SUPPLEMENT MEDICARE PART A & B [facility] MEDICARE SUPPLEMENT MEDICARE PART A & B [facility] MEDICARE SUPPLEMENT MEDICARE PART A & B [facility] MEDICARE SUPPLEMENT [facility] Address: [facility] [address] [place] [address] Advance Directives For more information, please contact: [phone] (9AM - 5PM [facility], Friday-Friday) Documents on File Type Date Recorded Patient Cut Off Sawyer Expl anation MOLST 05/24/2022 1:55 PM Healthcare Proxy 05/14/2022 1:26 PM MOLST 05/12/2022 11:37 AM MOLST DO S 05/10/22 Healthcare Proxy 05/12/2022 11:36 AM [facility] ONTIVEROS [facility] 04/25/22 * DNR/DNI (No CPR/No Intubation) [...] Agent (Proxy form on file) Care Teams Casing Operator Relationship Specialty Start Date End Date Ila Holguin MD [address] [place] [address] [email or web address] PCP - General Internal Medicine 05/10/22 Additional Source Comments The information contained in this document represents components of the legal health record. It is not the complete legal health record.[facility]
--- OUTSIDE RECORDS SUMMARY | 2025-07-11 06:23 | XMS_ITS | Clinical Summary ---
Author Organization Nivia Recinos [facility] Address [address] [place] [address] Care Team Providers Care Cook Helper Vegetable Name Role Phone None, Pcp MD Primary [...] (02/18/2017): Added automatically from request for surgery [id number] Ankle arthritis 01/30/2016 Social History Tobacco Use [...] on file Medical Devices Implanted Type Area Car Cleaner Device Identifier Shelf Expiration Date Model / Serial / Lot Putty Dbx 5ml [id number]) - [id number] Implanted:Qty : 1 on 01/30/2016 by Amarilis Duffy MD at [facility] Allograft Tissue Left: Ankle [employer] 09/01/2017 [id number] / [id number] / N/A Cancellous Preservon Bone Chips 15cc ([id number]) - [id number] Implanted:Qty : 1 on 01/30/2016 by Amarilis Duffy MD at [facility] Bone Left: Ankle [facility] 09/06/2020 [facility] / / [id number] Cancellous Preservon Bone Chips 30cc ([id number]) - [id number] Implanted:Qty : 1 on 04/01/2017 by Amarilis Duffy MD at [facility] Bone Left: Foot [facility] 09/25/2021 [id number] / / [id number] Tt Fusion Sm Lt ([id number]) - [id number] Implanted:Qty : 1 on 04/01/2017 by Amarilis Duffy MD at [facility] Plate Left: Ankle Watchfinder 04/01/2017 [id number] / / 0000 Screw Locking 5.5 X 40mm ([id number]) - [id number] Implanted:Qty : 1 on 04/01/2017 by Amarilis Duffy MD at [facility] Screw Left: Ankle Watchfinder 04/01/2017 [id number] / / 0000 Screw Locking 5.5 X 20mm ([id number]) - [id number] Implanted:Qty : 1 on 04/01/2017 by Amarilis Duffy MD at [facility] Screw Left: Ankle Watchfinder 04/01/2017 [id number] / / 0000 Screw Non-Locking 4.5 X 40mm ([id number]) - [id number] Implanted:Qty : 1 on 04/01/2017 by Amarilis Duffy MD at [facility] Screw Left: Ankle Watchfinder 04/01/2017 [id number] / / 0000 Screw Cortical 5.5 X 45mm ([id number]) - [id number] Implanted:Qty : 2 on 04/01/2017 by Amarilis Duffy MD at [facility] Screw Left: Ankle Watchfinder 04/01/2017 [id number] / / 0000 Screw Cortical 5.5 X 55mm ([id number]) - [id number] Implanted:Qty : 1 on 04/01/2017 by Amarilis Duffy MD at [facility] Screw Left: Ankle Watchfinder 04/01/2017 [id number] / / 0000 Explanted Type Area Car Cleaner Device Identifier Shelf Expiration Date Model / Serial / Lot Screw Cannulated 16mm Thr 7.3mm X 50mm ([id number]) - [id number] Implanted:Qty: 1 on 01/30/2016 by Amarilis Duffy MD at [facility] Explanted:Qty: 1 on 04/01/2017 by Amarilis Duffy MD at [facility] Screw Left: Ankle [employer] 01/29/2017 [id number] / / N/A Screw Cannulated 16mm Thr 7.3mm X 55mm ([id number]) - [id number] Implanted:Qty: 2 on 01/30/2016 by Amarilis Duffy MD at [facility] Explanted:Qty: 2 on 04/01/2017 by Amarilis Duffy MD at [facility] Screw Left: Ankle [employer] 01/29/2017 [id number] / / N/A Screw Cannulated 32mm Thr 7.3mm X 80mm ([id number]) - [id number] Implanted:Qty: 1 on 01/30/2016 by Amarilis Duffy MD at [facility] Explanted:Qty: 1 on 04/01/2017 by Amarilis Duffy MD at [facility] Screw Left: Ankle [employer] 01/29/2017 [id number] / / N/A Insurance MEDICARE [facility] MEDICARE SUPPLEMENT Advance Directives * Full Code (Latest Code Status on File) Date Activated Date Inactivated Comments 04/01/2017 3:47 PM * Full Code Date Activated Date Inactivated Comments 01/30/2016 7:15 AM 2016 2:17 PM Healthcare Agents on File Name Relationship Healthcare Agent [facility] p Communication Yulisa Hollis Daughter Health Care Agent Care Teams Cook Helper Vegetable Relationship Specialty Start Date End Date None, PcpMD PCP - General 05/27/18
--- OUTSIDE RECORDS SUMMARY | 2025-07-11 06:23 | XMS_ITS | Clinical Summary ---
Author Organization [facility] ity Address [address] [place] [address] Care Team Providers Care Manager Site Name Role Phone Unavailable Primary Care Provider [...]
--- OUTSIDE RECORDS SUMMARY | 2025-07-11 06:23 | XMS_ITS | Encounter Summary ---
Author Organization Nivia Mensah [facility] Address [address] [place] [address] Care Team Providers Care Semiconductor Lab Technician Name Role Phone Brian Diaz Primary Care Provider [phone] Farrukh Diaz Primary Care Provider [phone] System, Provider Not In Primary Care Provider Un available None, Pcp Primary Care Provider Unavailabl e Encounter Details Date Type Department Care Team (Late st Contact Info) Description 02/18/2016 Documentation Department of Orthopedic Surgery ([address] [place] [address] [address] [place] [address], 2[address] [place] [address] Tank Jon MD Social History Tobacco Use [...] on filedocumented in this encounter Care Teams Semiconductor Lab Technician Relationship Specialty Start Date End Date Brian Diaz [address] [place] [address] PCP - General 10/28/14 05/20/16 Farrukh Diaz [address] [place] [address] PCP - General 05/21/16 12/23/17 System, Provider Not In [address] [place] [address] [address] [place] [address] PCP - General 12/24/17 05/26/18 None, PcpMD [address] [place] [address] [address] [place] [address] PCP - General 05/27/18 documented as of this encounter
--- OUTSIDE RECORDS SUMMARY | 2025-07-11 06:23 | XMS_ITS | Encounter Summary ---
Author Organization [facility] Address [address] [place] [address] [place] [address] Phone Care Team Providers Care Furnace Setter Name Role Phone Ila Holguin MD Primary Care Provider [phone] Encounter Details Date Type Department Care Team (Late st Contact Info) Description 05/10/2022 Procedure Pass [facility], [facility] [address] [place] [address] Social History Tobacco Use Types Packs/Day Years [...] documented as of this encounter Care Teams Furnace Setter Relationship Specialty Start Date End Date Ila Holguin MD [address] [place] [address] PCP - General Internal Medicine 05/10/22 documented as of this encounter Additional Source Comments The information contained in this document represents components of the legal health record. It is not the complete legal health record.[facility]
[2025-07-11 06:43] LABS: Hematocrit 31.2 % (42.0-52.0); Hemoglobin 9.8 g/dl (14.0-18.0); Imm Gran Abs Auto 0.01 X10*3/uL (0.00-0.03); Imm Gran Pct Auto 0.2 % (0.0-0.4); Lymphocytes Absolute Auto 0.8 X10*3/uL (1.2-4.9); Mean Corpuscular HGB Conc 31.4 g/dl (31.0-36.0); Mean Corpuscular Hemoglobin 31.3 pg (27.0-33.0); Mean Corpuscular Volume 99.7 fL (80.0-98.0); NRBC Abs Auto 0.000 X10*3/uL (0.0-0.012); NRBC Pct Auto 0.0 /100WBC (0.0-0.2); Platelet Count 157 X10*3/uL (160-400); Red Blood Count 3.13 X10*6/uL (4.60-5.80); White Blood Count 4.2 X10*3/uL (4.8-10.8)
== END 2025-07-11 06:21 ==
LOC: HO.HSH3E 06:20
PROVIDERS: Visit Provider Internal Medicine Endocrinology, Diabetes & Metabolism
DX: D64.9 Anemia, unspecified (principal)
CPT/HCPCS: 36415; 85025

== ENCOUNTER 2025-07-13 05:05 | Outpatient (REF) | payer MEDICARE, SELFPAY ==
--- OUTSIDE RECORDS SUMMARY | 2025-07-13 08:11 | XMS_ITS | Clinical Summary ---
Author Organization [facility] Address [address] [place] [address] [place] [address] Phone Care Team Providers Care Reservoir Engineering Advisor Name Role Phone Ila Holguin MD Primary Care Provider [phone] Allergies No known active allergies Medications allopurinol [...] mouth nightly at bedtime. Active multivitamins-m inerals-folic rcbx-eirmqmv-ia tein (COMPLETE SENIOR) 0.4 mg-300 mcg- 250 [...] Plan (05/22/2022 4:58 PM EST): Presents from [facility] after having had urinary frequency, suprapubic pain, and fatigue, increased confusion, febrile to 101F there, decreased blood pressure, with urinalysis consistent with UTI. Received 1 dose of ciprofloxacin at 8 PM at 05/18/2022. UC from [facility], Ecoli. Similar on culture taken on admit, BC all negative. Some resistance, but susceptible to rocephin. Same for today. Need to keep kidney function in mind when choosing to deescalate. ? To be answered is if this is acute cystitis or more complicated UTI, as he has had multiple. Requested the last 4 discharge summaries from [facility]. His daughter has a huge amount [...] is essentially been hospitalized or in a penitentiary facility since August it has not happened. She was wondering if we can have that done while here if it is something that is predisposing him to UTI Urine culture demonstrating [id number] colonies E. coli, resistant to amp, amp sulbactam -- On ceftriaxone, de-escalate to Ceftin -- Urology consult requested Acute kidney injury 05/11/2022 Assessment & Plan (05/22/2022 4:54 PM EST): Patient has had recent ESRD with hemodialysis treatments X8, at discharge to [facility] previously was at creatinine of 1.7 presents now with creatinine of 2.4 in setting of likely dehydration and complicated UTI. CRE is trending down with IVF and tx of UTI. If this trend continues, no need for imaging. Renal function improving with creatinine today 1.8 --Continue daily labs Assessment & Plan (05/11/2022 4:12 PM EDT): Recent KHADRA requiring hemodialysis during [facility] hospitalization. Per daughter, received 6 treatments. 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 HEMOGLOBIN A1C Routine 05/20/2022 6:27 AM EST from Last 3 Months or Most Recently Relevant to Health Maintenance Results * (ABNORMAL) Basic metabolic panel (06/27/2022 5:45 AM EST) SODIUM 136 133 - 146 mmol/L [facility] CHLORIDE 104 96 - 108 mmol/L [facility] POTASSIUM 4.8 3.3 - 5.1 mmol/L [facility] CO2 23 21 - 35 mmol/L [facility] BUN 58(H) 6 - 19 mg/dL [facility] CREATININE 2.20(H) 0.5 - 1.5 mg/dL [facility] GLUCOSE 99 70 - 99 mg/dL [facility] CALCIUM 12.3(H) 8.4 - 10.3 mg/dL [facility] EGFR 30(L) >59 mL/min/1.7 3m2 [facility] Comment:Estimated glomerular filtration rate calculated using the CKD-EPI refit equation. ANION GAP 14 10 - 20 mmol/L [facility] Blood 06/27/2022 5:45 AM EST 06/27/2022 8:59 AM EST us Ila Holguin MD LAB BLOOD BKR ORDERABLES Final Result [facility] [address] [place] [address] * Hemoglobin A1c (05/20/2022 6:27 AM EST) HEMOGLOBIN A1C 5.4 4.3 - 5.8 % [facility] Blood 05/20/2022 6:27 AM EST 05/20/2022 6:44 AM EST us Joseph Christie TECHNOLOGY APPLICATIONS CONSULTANT LAB BLOOD BKR ORDERABLE S Final Result [facility] [address] [place] [address] from Last 3 Months or Most Recently Relevant to Health Maintenance Insurance MED[place] [id number] [facility] MEDICARE SUPPLEMENT MEDICARE PART A & B [id number] [place] [address] MEDICARE SUPPLEMENT MEDICARE PART A & B [facility] MEDICARE SUPPLEMENT MEDICARE PART A & B MEDICARE SUPPLEMENT MEDICARE PART A & B [facility] MEDICARE SUPPLEMENT MEDICARE PART A & B [facility] MEDICARE SUPPLEMENT MEDICARE PART A & B [facility] MEDICARE SUPPLEMENT MEDICARE PART A & B [facility] MEDICARE SUPPLEMENT MEDICARE PART A & B [facility] MEDICARE SUPPLEMENT Advance Directives For more information, please contact: [phone] (9AM - 5PM [facility], Friday-Friday) Documents on File Type Date Recorded Patient Hospitality Services Manager Expl anation MOLST 05/24/2022 1:55 PM Healthcare Proxy 05/14/2022 1:26 PM MOLST 05/12/2022 11:37 AM MOLST DO S 05/10/22 Healthcare Proxy 05/12/2022 11:36 AM ANNY ONTIVEROS [facility] 04/25/22 * DNR/DNI (No CPR/No [...] Agent (Proxy form on file) Care Teams Reservoir Engineering Advisor Relationship Specialty Start Date End Date Ila Holguin MD [address] [place] [address] [email or web address] PCP - General Internal Medicine 05/10/22 Additional Source Comments The information contained in this document represents components of the legal health record. It is not the complete legal health record.[facility]
--- OUTSIDE RECORDS SUMMARY | 2025-07-13 08:11 | XMS_ITS | Clinical Summary ---
Author Organization [facility] ity Address [address] [place] [address] Care Team Providers Care Form Press Operator Name Role Phone Unavailable Primary Care [...]
--- OUTSIDE RECORDS SUMMARY | 2025-07-13 08:11 | XMS_ITS | Clinical Summary ---
Author Organization [facility] Address [address] [place] [address] Phone Care Team Providers Care Temperature Inspector Name Role Phone Vladimir Keys MD Primary Care Provider [phone] Allergies No known active allergies Medications acetaminophen [...] (09/18/2021): Added automatically from request for surgery [id number] Immunizations Immunization Administration Dates Next Due Influenza, [...] EDT Unless otherwise specified, test(s) performed at: [facility] [address] SUPERVISOR INVENTORY MERCHANDISING: Chris Gomez M.D. For any questions, please call customer service at FREQUENCY:MONTHLY Resulting Agency Comment Specimen source: Blood Brian Saldaña MD LAB BLOOD BANK TEST ORDERABLES F inal Result [facility]PS EBONIE PVNMA from Last 3 Months or Most Recently Relevant to Health Maintenance Insurance Medicare [facility] Medicare [facility] Care Teams Temperature Inspector Relationship Specialty Start Date End Date Vladimir Keys MD [address] [place] [address], [address] [place], [place] PCP - General 07/24/20
--- OUTSIDE RECORDS SUMMARY | 2025-07-13 08:11 | XMS_ITS | Encounter Summary ---
Author Organization [facility] Address [address] [place] [address] [place] [address] Phone Care Team Providers Care Center Customer Service Associate Name Role Phone Ila Holguin MD Primary Care Provider [phone] Encounter Details Date Type Department Care Team (Latest Contact Info) Description 06/17/2022 Transcribe Orders [facility] Specimen Processing [address] [place] [address] Ila Holguin MD [address] [place] [address] [email or web address] Atrial fibrillation, unspecified type (Primary Dx) Social [...] EST) PT 21.5(H) 10.2 - 12.9 sec [facility] INR 1.9(H) 0.9 - 1.1 [facility] Comment:Therapeutic range fo r oral Vitamin K antagonists: 2.0-3.5 06/17/2022 6:35 AM EST 06/17/2022 8:33 AM EST Ila Holguin MD LAB BLOOD BKR ORDERABLES Final Result Performing Organization Address City/[facility] Co de Phone Number [address] [address] * (ABNORMAL) CBC (06/17/2022 6:35 AM EST) WBC 6.62 4.00 - 11.00 K/uL [facility] RBC 2.83(L) 3.90 - 5.69 M/uL [facility] HGB 8.3(L) 12.4 - 17.3 g/dL [facility] Comment:Called to Purnima Corley and read back HCT 25.8(L) 37.0 - 51.0 % [facility] PLT 242 140 - 430 K/uL [facility] MCV 91.2 78.0 - 97.0 fL [facility] MCH 29.3 25.0 - 33.0 pg [facility] MCHC 32.2 32.0 - 36.0 g/dL [facility] RDW 19.0(H) 11.0 - 15.0 % [facility] MPV 10.5 8.4 - 12.8 fl [facility] 06/17/2022 6:35 AM EST 06/17/2022 8:33 AM EST Ila Holguin MD LAB BLOOD BKR ORDERABLES Final Result Performing Organization Address City/[facility]/ZIP Co de Phone Number [address] [address] * (ABNORMAL) Comprehensive metabolic panel (06/17/2022 6:35 AM EST) SODIUM 139 133 - 146 mmol/L [facility] POTASSIUM 4.7 3.3 - 5.1 mmol/L [facility] CHLORIDE 107 96 - 108 mmol/L [facility] CO2 23 21 - 35 mmol/L [facility] BUN 45(H) 6 - 19 mg/dL [facility] CREATININE 2.20(H) 0.5 - 1.5 mg/dL [facility] GLUCOSE 94 70 - 99 mg/dL [facility] ALBUMIN 2.8(L) 3.9 - 4.8 g/dL [facility] TOTAL PROTEIN 6.1(L) 6.5 - 8.0 g/dL [facility] CALCIUM 11.8(H) 8.4 - 10.3 mg/dL [facility] ALKALINE PHOSPHATASE 94 39 - 117 U/L [facility] TOTAL BILIRUBIN 0.3 0.0 - 1.2 mg/dL [facility] AST 14 0 - 37 U/L [facility] ALT 7 0 - 40 U/L [facility] GLOBULIN 3.3 1 - 4.8 g/dL [facility] EGFR 30(L) >59 mL/min/1.7 3m2 [facility] Comment:Estimated glomerular filtration rate calculated using the CKD-EPI refit equation. ANION GAP 14 10 - 20 mmol/L [facility] 06/17/2022 6:35 AM EST 06/17/2022 8:33 AM EST Ila Holguin MD LAB BLOOD BKR ORDERABLES Final Result Performing Organization Address City/State/[facility] Co de Phone Number [facility] [address] [place] [address] documented in this encounter Visit Diagnoses Diagnosis Atrial fibrillation, unspecified type- Primary documented in this encounter Care Teams Center Customer Service Associate Relationship Specialty Start Date End Date Ila Holguin MD [address] [place] [address] PCP - General Internal Medicine 05/10/22 documented as of this encounter Additional Source Comments The information contained in this document represents components of the legal health record. It is not the complete legal health record.[facility]
--- OUTSIDE RECORDS SUMMARY | 2025-07-13 08:11 | XMS_ITS | Encounter Summary ---
Author Organization [facility] Address [address] [place] [address] [place] [address] Phone Care Team Providers Care Associate Agent Insurance Sales Name Role Phone Ila Holguin MD Primary Care Provider [phone] Encounter Details Date Type Department Care Team (Late st Contact Info) Description 05/10/2022 Procedure Pass [facility], Ct Scan - [facility] [address] [place] [address] Social History Tobacco Use Types Packs/Day Years [...] documented as of this encounter Care Teams Associate Agent Insurance Sales Relationship Specialty Start Date End Date Ila Holguin MD [address] [place] [address] PCP - General Internal Medicine 05/10/22 documented as of this encounter Additional Source Comments The information contained in this document represents components of the legal health record. It is not the complete legal health record.[facility]
--- OUTSIDE RECORDS SUMMARY | 2025-07-13 08:11 | XMS_ITS | Clinical Summary ---
Author Organization [facility] Rec[facility] Address [address] [place] [address] Care Team Providers Care Pipe Fitter Apprentice Name Role Phone None, Pcp MD Primary [...] (02/18/2017): Added automatically from request for surgery [id number] Ankle arthritis 01/30/2016 Social History Tobacco Use [...] on file Medical Devices Implanted Type Area Demolition Specialist Device Identifier Shelf Expiration Date Model / Serial / Lot Putty Dbx 5ml [id number]) - [id number] Implanted:Qty : 1 on 01/30/2016 by Amarilis Duffy MD at [facility] Allograft Tissue Left: Ankle [employer] 09/01/2017 [id number] / [id number] / N/A Cancellous Preservon Bone Chips 15cc ([id number]) - [id number] Implanted:Qty : 1 on 01/30/2016 by Amarilis Duffy MD at [facility] Bone Left: Ankle [facility] 09/06/2020 [facility] / [id number] Cancellous Preservon Bone Chips 30cc ([id number]) - [id number] Implanted:Qty : 1 on 04/01/2017 by Amarilis Duffy MD at [facility] Bone Left: Foot [facility] 09/25/2021 [id number] / / [id number] Tt Fusion Sm Lt ([id number]) - [id number] Implanted:Qty : 1 on 04/01/2017 by Amarilis Duffy MD at [facility] Plate Left: Ankle [employer] 04/01/2017 [id number] / / 0000 Screw Locking 5.5 X 40mm ([id number]) - [id number] Implanted:Qty : 1 on 04/01/2017 by Amarilis Duffy MD at [facility] Screw Left: Ankle [employer] 04/01/2017 [id number] / / 0000 Screw Locking 5.5 X 20mm ([id number]) - [id number] Implanted:Qty : 1 on 04/01/2017 by Amarilis Duffy MD at [facility] Screw Left: Ankle [employer] 04/01/2017 [id number] / / 0000 Screw Non-Locking 4.5 X 40mm ([id number]) - [id number] Implanted:Qty : 1 on 04/01/2017 by Amarilis Duffy MD at [facility] Screw Left: Ankle [employer] 04/01/2017 [id number] / / 0000 Screw Cortical 5.5 X 45mm ([id number]) - [id number] Implanted:Qty : 2 on 04/01/2017 by Amarilis Duffy MD at [facility] Screw Left: Ankle [employer] 04/01/2017 [id number] / / 0000 Screw Cortical 5.5 X 55mm ([id number]) - [id number] Implanted:Qty : 1 on 04/01/2017 by Amarilis Duffy MD at [facility] Screw Left: Ankle [employer] 04/01/2017 [id number] / / 0000 Explanted Type Area Demolition Specialist Device Identifier Shelf Expiration Date Model / Serial / Lot Screw Cannulated 16mm Thr 7.3mm X 50mm ([id number]) - [id number] Implanted:Qty: 1 on 01/30/2016 by Amarilis Duffy MD at [facility] Explanted:Qty: 1 on 04/01/2017 by Amarilis Duffy MD at [facility] Screw Left: Ankle [employer] 01/29/2017 [id number] / / N/A Screw Cannulated 16mm Thr 7.3mm X 55mm ([id number]) - [id number] Implanted:Qty: 2 on 01/30/2016 by Amarilis Duffy MD at [facility] Explanted:Qty: 2 on 04/01/2017 by Amarilis Duffy MD at [facility] Screw Left: Ankle [employer] 01/29/2017 [id number] / / N/A Screw Cannulated 32mm Thr 7.3mm X 80mm ([id number]) - [id number] Implanted:Qty: 1 on 01/30/2016 by Amarilis Duffy MD at [facility] Explanted:Qty: 1 on 04/01/2017 by Amarilis Duffy MD at [facility] Screw Left: Ankle [employer] 01/29/2017 [id number] / / N/A Insurance MEDICARE [facility] MEDICARE SUPPLEMENT Advance Directives * Full Code (Latest Code Status on File) Date Activated Date Inactivated Comments 04/01/2017 3:47 PM * Full Code Date Activated Date Inactivated Comments 01/30/2016 7:15 AM 2016 2:17 PM Healthcare Agents on File Name Relationship Healthcare Agent [facility] p Communication Yulisa Hollis Daughter Health Care Agent Care Teams Pipe Fitter Apprentice Relationship Specialty Start Date End Date None, PcpMD PCP - General 05/27/18
--- OUTSIDE RECORDS SUMMARY | 2025-07-13 08:11 | XMS_ITS | Encounter Summary ---
Author Organization [facility]ivia Mensah [facility] Address [address] [place] [address] Care Team Providers Care Primary Care Provider Name Role Phone Brian Diaz Primary Care Provider [phone] Farrukh Diaz Primary Care Provider [phone] System, Provider Not In Primary Care Provider Un available None, Pcp Primary Care Provider Unavailabl e Encounter Details Date Type Department Care Team (Late st Contact Info) Description 02/18/2016 Documentation Department of Orthopedic Surgery ([address] [place] [address] [address] [place] [address], [address] [place] [address] Tank Jon MD Social History Tobacco Use [...] on filedocumented in this encounter Care Teams Primary Care Provider Relationship Specialty Start Date End Date Brian Diaz [address] [place] [address] PCP - General 10/28/14 05/20/16 Farrukh Diaz [address] [place] [address] PCP - General 05/21/16 12/23/17 System, Provider Not In [address] [place] [address] [address] [place] [address] PCP - General 12/24/17 05/26/18 None, PcpMD [address] [place] [address] [address] [place] [address] PCP - General 05/27/18 documented as of this encounter
[2025-07-13 08:40] LABS: Appearance Urine Cloudy; Glucose Urine UA 100 mg/dL (Negative); PH >= 9.0 (5.0-9.0); Specific Gravity - Urine 1.020 (1.005-1.025); UMIC TRIGGER UACC YES
[2025-07-13 08:48] LABS: UACC Culture Trigger YES
== END 2025-07-13 05:06 | disposition home or self-care (01) ==
LOC: HO.HSH2E 05:05
PROVIDERS: Visit Provider Internal Medicine Endocrinology, Diabetes & Metabolism
DX: R30.0 Dysuria (principal)
CPT/HCPCS: 81001; 87086; 87088; 87186